=== PATIENT | female | born 1985 | race Caucasian/White ===

== ENCOUNTER → 2020-07-06 15:17 | Outpatient (BNVA) | payer MEDICAID, SELFPAY | PROVIDERS: Visit Provider Obstetrics & Gynecology | DX: Z30.09 Encounter for other general counseling and advice on contraception (principal) | CPT/HCPCS: 99212 ==

== ENCOUNTER → 2020-08-24 15:15 | Outpatient (BNVA) | payer MEDICAID, SELFPAY | PROVIDERS: Visit Provider Obstetrics & Gynecology | DX: Z30.430 Encounter for insertion of intrauterine contraceptive device (principal) | CPT/HCPCS: 11981 ==

== ENCOUNTER → 2020-11-11 08:40 | Outpatient (BNVA) | payer MEDICAID, SELFPAY | PROVIDERS: PCP Internal Medicine; Visit Provider Obstetrics & Gynecology | DX: Z30.432 Encounter for removal of intrauterine contraceptive device (principal) | CPT/HCPCS: 11982 ==

== ENCOUNTER 2020-12-03 09:11 | Outpatient (REF) | payer MEDICAID, SELFPAY ==
[2020-12-04 09:42] LABS: CT PCR NOT DETECTED (Not Detect.); NG PCR NOT DETECTED (Not Detect.)
[2020-12-10 11:02] LABS: HPV 16 RNA NOT DETECTED (NOT DETECTED); HPV mRNA E6/E7 rflx Detected (Not Detected)
== END 2020-12-03 09:12 | disposition home or self-care (01) ==
LOC: HO.LAB 09:11
PROVIDERS: PCP Internal Medicine; Visit Provider Obstetrics & Gynecology
DX: Z01.419 Encounter for gynecological examination (general) (routine) without abnormal findings (principal); N64.4 Mastodynia; N91.2 Amenorrhea, unspecified; N63.21 Unspecified lump in the left breast, upper outer quadrant
CPT/HCPCS: 87491; 87591; 87624; 87625; 88141; 88142

== ENCOUNTER 2020-12-07 09:25 | Outpatient (REF) | payer MEDICAID, SELFPAY ==
--- NOTE | ~2020-12-07 | MM_ITS ---
EXAMINATION: MM DIAGNOSTIC DIGITAL BREAST TOMOSYNTHESIS, BILATERAL US DIAGNOSTIC ULTRASOUND BREAST, LEFT CLINICAL INFORMATION: 35-year-old with recent left breast pain and small palpable area posterior upper outer quadrant. No prior breast imaging. Age 35. No known family history breast cancer. The lifetime risk of breast cancer based on the Tyrer-Cuzick Model is 9%. COMPARISON: None (current study represents initial baseline exam). TECHNIQUE: Digital breast tomosynthesis is performed in both the craniocaudal and mediolateral oblique views along with computer-aided detection (CAD). Synthesized 2D images are generated from the tomosynthesis. Ultrasound left breast is targeted to the upper outer quadrant. Patient is able to point to the area of concern at time of imaging. Grayscale imaging and color Doppler are performed without and with harmonics. FINDINGS: The breasts are heterogeneously dense, which may obscure small masses (ACR BI-RADS breast composition Category c). There are no significant masses, abnormal calcifications, or other abnormalities. The axilla and skin contours are unremarkable. There is no skin thickening or retraction. No coarsening of the Lawrence's ligaments. Ultrasound demonstrates no cystic or solid mass or architectural abnormality. No skin thickening. No focal duct ectasia or edema tracking in the soft tissue planes. Results are discussed with the patient at time of visit. MM/MM tomosynthesis diagnostic BI IMPRESSION: 1. No mammographic evidence of malignancy or inflammatory changes. 2. Unremarkable targeted left breast ultrasound. ASSESSMENT: BI-RADS 1: Negative RECOMMENDATION: 1. Patient should be managed based on the clinical impression. If clinically indicated, further evaluation may be considered with surgical consult. Decision to proceed with biopsy should be based on clinical grounds and degree of clinical concern. 2. Otherwise, routine annual screening mammography, beginning age 40, or earlier as clinical risk factors warrant. This patient's information was entered into a reminder system with a target due date for their next mammogram.
== END 2020-12-07 09:26 | disposition home or self-care (01) ==
LOC: HO.MAMMO 09:25
PROVIDERS: Visit Provider Obstetrics & Gynecology
DX: N63.21 Unspecified lump in the left breast, upper outer quadrant (principal)
CPT/HCPCS: 76642; 77062; 77066

== ENCOUNTER → 2020-12-23 11:32 | Outpatient (BNVA) | payer MEDICAID, SELFPAY | PROVIDERS: PCP Internal Medicine; Visit Provider Obstetrics & Gynecology | DX: N91.2 Amenorrhea, unspecified (principal); N63.20 Unspecified lump in the left breast, unspecified quadrant; R87.610 Atypical squamous cells of undetermined significance on cytologic smear of cervix (ASC-US); R87.810 Cervical high risk human papillomavirus (HPV) DNA test positive | CPT/HCPCS: 99202 ==

== ENCOUNTER 2020-12-24 13:09 | Outpatient (REF) | payer MEDICAID, SELFPAY ==
[2020-12-24 14:34] LABS: Thyroid Stimulating Hormone 7.12 uIU/mL (0.32-4.0)
[2020-12-25 05:16] LABS: Prolactin 10.9 ng/mL
== END 2020-12-24 13:10 | disposition home or self-care (01) ==
LOC: HO.LAB 13:09
PROVIDERS: PCP Internal Medicine; Visit Provider Obstetrics & Gynecology
DX: N91.2 Amenorrhea, unspecified (principal)
CPT/HCPCS: 36415; 84146; 84443

== ENCOUNTER 2020-12-25 10:58 | Outpatient (REF) | payer MEDICAID, SELFPAY ==
[2020-12-25 12:58] LABS: Free T4 (Free Thyroxine) 0.76 ng/dL (0.71-1.85)
== END 2020-12-25 10:59 | disposition home or self-care (01) ==
LOC: HO.LAB 10:58
PROVIDERS: PCP Internal Medicine; Visit Provider Obstetrics & Gynecology
DX: R79.89 Other specified abnormal findings of blood chemistry (principal)
CPT/HCPCS: 36415; 84439; 84481

== ENCOUNTER 2020-12-29 13:33 | Outpatient (REF) | payer MEDICAID, SELFPAY | END 2020-12-29 13:34 | disposition home or self-care (01) | LOC: HO.LAB 13:33 | PROVIDERS: PCP Internal Medicine; Visit Provider Obstetrics & Gynecology | DX: R87.610 Atypical squamous cells of undetermined significance on cytologic smear of cervix (ASC-US) (principal); R87.810 Cervical high risk human papillomavirus (HPV) DNA test positive | CPT/HCPCS: 57454; 81025; 88305 ==

== ENCOUNTER → 2021-01-12 11:27 | Outpatient (BNVA) | payer MEDICAID, SELFPAY | PROVIDERS: PCP Internal Medicine; Visit Provider Obstetrics & Gynecology ==

== ENCOUNTER 2021-05-20 08:59 | Outpatient (REF) | payer MEDICAID, SELFPAY ==
--- NOTE | ~2021-05-20 | US_ITS ---
EXAMINATION: US ABDOMEN LIMITED CLINICAL INFORMATION: Ventral hernia. COMPARISON: Ultrasound abdomen 06/29/2018. TECHNIQUE: Real-time imaging of the umbilical area. FINDINGS: There is hypoechoic soft tissue seen at and just above the the umbilicus in the area of scar. This measures 1.2 x 1.1 x 0.8 cm in sagittal, transverse and AP dimension. This has acoustic shadowing suggestive of postoperative scarring. Acoustic shadowing obscures the abdominal wall limiting evaluation for a hernia. There is bulge of the abdominal wall seen in this region. US/US abdomen limited IMPRESSION: Hypoechoic shadowing soft tissue probably representing postsurgical scarring. This limits evaluation for a hernia. Follow-up CT scan should be considered.
== END 2021-05-20 09:00 | disposition home or self-care (01) ==
LOC: HO.US 08:59
PROVIDERS: PCP Internal Medicine; Visit Provider Internal Medicine
DX: K43.9 Ventral hernia without obstruction or gangrene (principal)
CPT/HCPCS: 76705

== ENCOUNTER 2021-06-11 19:09 | Emergency (ER) | payer MEDICAID, SELFPAY ==
[2021-06-11 21:15] VITALS: BP 143/96; PULSE 92; RESP 16; TEMP 37.2; O2SAT 99; BMI 37.3
[2021-06-11 22:56] LABS: MANUAL DIFF FLAG NO
[2021-06-11 22:58] LABS: Basophils Percent Auto 0.4 % (0-2); Eosinophils Absolute Auto 0.3 X10*3/uL (0.0-0.4); Eosinophils Percent Auto 3.3 % (0-4); Hematocrit 34.3 % (37-47); Hemoglobin 10.7 g/dl (12.0-16.0); Imm Gran Abs Auto 0.04 X10*3/uL (0.00-0.03); Imm Gran Pct Auto 0.5 % (0.0-0.4); Lymphocytes Absolute Auto 2.4 X10*3/uL (1.2-4.9); Lymphocytes Percent Auto 30.7 % (20-40); Mean Corpuscular HGB Conc 31.2 g/dl (31.0-35.0); Mean Corpuscular Hemoglobin 25.1 pg (27.0-33.0); Mean Corpuscular Volume 80.3 fL (80-98); Mean Platelet Volume 11.1 fL (9.4-12.3); Monocytes Absolute Auto 0.5 X10*3/uL (0.1-1.2); Monocytes Percent Auto 6.3 % (2-11); Neutrophils Absolute Auto 4.6 X10*3/uL (2.0-8.3); Neutrophils Percent Auto 58.8 % (45-73); Platelet Count 234 X10*3/uL (160-400); Red Blood Count 4.27 X10*6/uL (4.20-5.50); Red Cell Distribution Width 14.6 % (11.0-16.0); White Blood Count 7.8 X10*3/uL (4.8-10.8)
[2021-06-11 23:15] LABS: Alanine Aminotransferase 38 U/L (0-31); Albumin Level 4.2 g/dL (3.5-5.0); Alkaline Phosphatase 89 U/L (39-117); Anion Gap 11 (12-20); Aspartate Amino Transferase 25 U/L (5-31); Bilirubin Total 0.2 mg/dL (0.0-1.0); Blood Urea Nitrogen 8 mg/dL (9-16); Carbon Dioxide 25 mmol/L (22-29); Chloride 105 mmol/L (96-108); Creatinine Clr Calc Pharmacy 107.9; Estimated Glomerular Filt Rate > 60; Glucose Random 97 mg/dL (60-115); Sodium 137 mmol/L (135-145)
--- NOTE | 2021-06-12 02:20 | ED_ITS ---
HPI - Abdominal Pain General Chief Complaint: Abdominal Pain Stated Complaint: abd pain Time Seen by Provider: 06/12/21 00:50 Source: patient Mode of arrival: ambulatory Limitations: no limitations History of Present Illness HPI narrative: Patient comes to the emergency room complaining discomfort in an umbilical hernia surgery she has had in the past. Patient states the pain has been constant for approximately 3 months. The discomfort started almost a year ago, but has been intermittent. Patient denies at this time abdominal pain, no fever, no chills, no vomiting or diarrhea. Related Data Home Medications Medication Instructions Recorded Confirmed etonogestrel 68 mg subdermal SUBDERMAL .3 YEARS ea 08/24/20 implant (Nexplanon) Previous Rx's Medication Instructions Recorded medroxyprogesterone 10 mg tablet 10 mg PO daily 5 Days #5 tab 12/03/20 (Provera) Allergies Allergy/AdvReac Type Severity Reaction Status Date / Time latex [LATEX] Allergy Intermediate HANDS SWELL Verified 06/11/21 21:15 latex Allergy Unknown hives Uncoded 11/11/20 09:20 Review of Systems Review of Systems Constitutional : No Weight loss, No Fever, No Chills, No Night Sweats, No Fatigue, No Malaise ENT/Mouth : No Hearing loss, No Ear Pain, No Nasal Congestion, No Sinus Pain, No Hoarseness, No sore throat, No Rhinorrhea, No Swallowing Difficulty Eyes: No Eye Pain, No Swelling, No Redness, No Foreign Body, No Discharge, No Vision Changes Cardiovascular : No Chest Pain, No SOB, No Dyspnea on Exertion, No Orthopnea, No Edema, No Palpitations Respiratory : No Cough, No Sputum, No Wheezing, No Smoke Exposure, No Dyspnea Gastrointestinal : No Nausea, No Vomiting, No Diarrhea, No Constipation, intermittent discomfort in umbilical/ventral hernia, no pain at this time. No Hematochezia, No Melena Genitourinary : no irregular bleeding, No Dysuria, No Urinary Frequency, No Hematuria, No Urinary Incontinence, No Urgency, No Flank Pain, No Urinary Flow Changes, No Hesitancy Musculoskeletal : No joint pain, No Myalgias, No Joint Swelling Skin : No Skin Lesions, No rash Neuro : No Weakness, No Numbness, No Paresthesias, No Loss of Consciousness, No Dizziness, No Headache Psych : No Anxiety/Panic, No Depression, No SI/HI/AH/VH, No Social Issues, Heme/Lymph: No Bruising, No Bleeding,No Lymphadenopathy Endocrine : No Polyuria, No Polydipsia, No Temperature Intolerance Physical Exam Vital Signs: Vital Signs: Last Vital Signs Temp 98.9 F 06/11/21 21:15 Pulse 92 06/11/21 21:15 Resp 16 06/11/21 21:15 BP 143/96 H 06/11/21 21:15 Pulse Ox 99 06/11/21 21:15 Body Mass Index 37.3 Const: Other: Appearance: Alert. Oriented X3. No acute distress. Eyes: Pupils equal, round and reactive to light. ENT: Pharynx normal. Neck: Normal inspection. Neck supple. No lymph nodes noted. No crepitus CVS: Normal heart rate and rhythm. Pulses normal. Normal S1 and S2 Respiratory: No respiratory distress. Breath sounds normal. No Wheezing. No rales Abdomen: Soft and nontender. Large reducible ventral hernia. No rigidity. No distention. good BS x4 Skin: Skin warm and dry. Normal skin color. Normal skin turgor. Extremities: No lower extremity edema. No Lacerations. No Rash Neuro: Oriented X 3. No motor deficit. No sensory deficit. Moving all extermities. No slurred speech. Course Course Course Narrative: I discussed the physical exam with the patient, patient has a reducible umbilical hernia/ventral hernia. At this time, patient is asymptomatic. Patient will follow-up with surgery. MDM - Abdominal Pain Lab Data Result diagrams: 06/11/21 22:41 06/11/21 22:41 Labs: Lab Results 06/11/21 06/11/21 Range/Units 22:41 22:41 WBC 7.8 (4.8-10.8) X10*3/uL RBC 4.27 (4.20-5.50) X10*6/uL Hgb 10.7 L (12.0-16.0) g/dl Hct 34.3 L (37-47) % MCV 80.3 (80-98) fL MCH 25.1 L (27.0-33.0) pg MCHC 31.2 (31.0-35.0) g/dl RDW 14.6 (11.0-16.0) % Plt Count 234 (160-400) X10*3/uL MPV 11.1 (9.4-12.3) fL Immature Gran % (Auto) 0.5 H (0.0-0.4) % Neut % (Auto) 58.8 (45-73) % Lymph % (Auto) 30.7 (20-40) % [place] % (Auto) 6.3 (2-11) % Eos % (Auto) 3.3 (0-4) % Baso % (Auto) 0.4 (0-2) % Lymph # (Auto) 2.4 (1.2-4.9) X10*3/uL [place] # (Auto) 0.5 (0.1-1.2) X10*3/uL Eos # (Auto) 0.3 (0.0-0.4) X10*3/uL Baso # (Auto) 0.0 (0.0-0.2) X10*3/uL Abs Immat Gran (auto) 0.04 H (0.00-0.03) X10*3/uL Absolute Neuts (auto) 4.6 (2.0-8.3) X10*3/uL Absolute Nucleated RBC 0.000 (0.0-0.012) X10*3/uL Nucleated RBC % (auto) 0.0 (0.0-0.2) /100WBC Sodium 137 (135-145) mmol/L Potassium 4.0 (3.3-5.1) mmol/L Chloride 105 (96-108) mmol/L Carbon Dioxide 25 (22-29) mmol/L Anion Gap 11 L (12-20) BUN 8 L (9-16) mg/dL Creatinine 0.69 (0.5-1.4) mg/dL Estim Creat Clear Calc 107.9 Estimated GFR > 60 Random Glucose 97 (60-115) mg/dL Calcium 9.0 (8.4-10.2) mg/dL Total Bilirubin 0.2 (0.0-1.0) mg/dL AST 25 (5-31) U/L ALT 38 H (0-31) U/L Alkaline Phosphatase 89 (39-117) U/L Total Protein 8.0 (6.5-8.0) g/dL Albumin 4.2 (3.5-5.0) g/dL Discharge Plan Discharge Clinical Impression: Reducible umbilical hernia Patient Disposition: Home, Self-Care Instructions: Ventral Hernia (ED) Additional Instructions: Please follow-up with your primary care physician tomorrow. If you have any wo rsening or new symptoms, please return to the emergency room or call 911 Prescriptions: No Action Nexplanon 68 mg implant subdermal .3 YEARS RF: 0 medroxyprogesterone [Provera] 10 mg tablet 10 mg PO daily 5 Days Qty: 5 RF: 0 Referrals: Rene Glez MD [Physician] - 2 days [facility] Past Medical History Medical History Asthma Depression GERD (gastroesophageal reflux disease) Surgical History History of umbilical hernia repair (05/13/19) Hx of section Family History Family History Father No problems noted. Mother HTN (hypertension) Asthma Hyperthyroidism Diabetes Paternal Aunt Breast cancer Social History Social History Alcohol intake: never Advance Directives: No Advance Directives Information Provided: No Sexual orientation: Straight/Heterosexual Gender identity: Female
== END 2021-06-12 03:01 | disposition home or self-care (01) ==
PROVIDERS: Emergency Provider Emergency Medicine; PCP Internal Medicine
DX: R10.33 Periumbilical pain (principal); R10.2 Pelvic and perineal pain; Z79.899 Other long term (current) drug therapy
CPT/HCPCS: 36415; 80053; 85025; 99283

== ENCOUNTER → 2021-06-15 20:04 | Outpatient (REF) | payer MEDICAID, SELFPAY | LOC: HO.SL 20:04 | PROVIDERS: Visit Provider Internal Medicine | DX: R06.83 Snoring (principal) | CPT/HCPCS: 95810 ==

== ENCOUNTER 2021-06-17 11:40 | Outpatient (REF) | payer MEDICAID, SELFPAY ==
[2021-06-17 14:50] LABS: Thyroid Stimulating Hormone 2.87 uIU/mL (0.32-4.0)
[2021-06-17 15:04] LABS: Erythrocyte Sedimentation Rate 29 MM/HR (0-20)
[2021-06-19 13:30] LABS: Transglutaminase IgA <1.0 U/mL
[2021-06-23 11:21] LABS: Endomysial IgA Antibody Negative (Negative)
[2021-06-25 22:57] LABS: Calprotectin, Fecal 365 mcg/g
== END 2021-06-17 11:41 | disposition home or self-care (01) ==
LOC: HO.LAB 11:40
PROVIDERS: PCP Internal Medicine; Referring Provider Internal Medicine; Visit Provider Physician Assistant
DX: K52.9 Noninfective gastroenteritis and colitis, unspecified (principal); K59.09 Other constipation
CPT/HCPCS: 36415; 83516; 83993; 84443; 85652; 86255; 86256; 87045; 87046; 87177; 87209; 87329; 99202

== ENCOUNTER 2021-07-19 12:13 | Outpatient (REF) | payer MEDICAID, SELFPAY ==
--- NOTE | ~2021-07-19 | CT_ITS ---
EXAMINATION: CT ABDOMEN AND PELVIS WITHOUT CONTRAST CLINICAL INFORMATION: Rule out ventral hernia. COMPARISON: Previous abdominal ultrasound May [address] of the abdomen and pelvis November 2020 TECHNIQUE: Multidetector volumetric imaging was performed from the superior aspect of the liver through the pubic symphysis. Sagittal and coronal reformatted images were obtained on the technologist's workstation. This CT examination was performed using dose optimization techniques as appropriate, variously including the following: *Automated exposure control *Adjustment of mA and/or kV according to patient size (this includes techniques or standardized protocols for targeted exams where dose is matched to indication/reason for exam; i.e. extremities or head) *Use of iterative reconstruction technique DLP: 565 mGy-cm FINDINGS: LUNG BASES: The visualized lung bases are unremarkable. LIVER, GALLBLADDER, AND BILIARY TREE: There is fatty infiltration of the liver. The gallbladder is unremarkable. There is no focal liver lesion or biliary duct dilatation. PANCREAS: Unremarkable. SPLEEN: Unremarkable. ADRENAL GLANDS: Unremarkable. KIDNEYS AND URETERS: The kidneys are normal in size, shape, and attenuation. No hydronephrosis, hydroureter, or calculi seen. No perinephric stranding. BLADDER: Unremarkable. GASTROINTESTINAL TRACT: The small and large bowel are unremarkable. The appendix is unremarkable. ABDOMINAL WALL: There is diastasis of the rectus muscles and significant midline bulge containing fat and loops of small and large bowel. No abdominal wall hernia is seen. LYMPH NODES: Normal. VASCULAR: Unremarkable. PELVIC VISCERA: Unremarkable. OSSEOUS STRUCTURES: Unremarkable. CT/CT abdomen pelvis wo con IMPRESSION: Severe diastasis of the rectus muscles and midline abdominal wall bulge. No hernia seen. Fatty liver.
[2021-07-19] MEDS: Barium Sulfate Oral (Vanilla) 450 ML ORAL.SUSP 900 ML PO (14:35)
== END 2021-07-19 12:14 | disposition home or self-care (01) ==
LOC: HO.CT 12:13
PROVIDERS: PCP Internal Medicine; Visit Provider Internal Medicine
DX: K43.9 Ventral hernia without obstruction or gangrene (principal)
CPT/HCPCS: 74176

== ENCOUNTER 2021-08-12 18:32 | Emergency (ER) | payer MEDICAID, SELFPAY ==
--- NOTE | ~2021-08-12 | XR_ITS ---
EXAMINATION: XR SHOULDER AND HAND, RIGHT CLINICAL INFORMATION: Pain and stiffness in the shoulder and hand COMPARISON: None TECHNIQUE: AP external rotation, Grashey, scapular Y, and axillary views of the right shoulder. 4 views of the right hand. FINDINGS: There is soft tissue swelling around the PIP joint of the second digit. No significant osseous abnormality is seen. No fractures or chondrocalcinosis. 3 views of the right shoulder show no fractures or dislocations. The glenohumeral joint appears normal as does the AC joint. No unusual calcifications are seen. XR/XR shoulder RT min 2V IMPRESSION: Normal right shoulder. Soft tissue swelling index finger.
--- NOTE | ~2021-08-12 | XR_ITS ---
EXAMINATION: XR CERVICAL SPINE CLINICAL INFORMATION: Neck pain. Stiffness. COMPARISON: None TECHNIQUE: 3 views of the cervical spine were obtained. FINDINGS: Slight reversal of the normal lordotic curve of the cervical spine. The vertebrae have normal height. No fracture. No bone destruction. Cervical disc heights are normal. Facet joints are normal. No prevertebral soft tissue swelling. XR/XR cervical spine 2V IMPRESSION: Normal cervical spine.
--- NOTE | ~2021-08-12 | XR_ITS ---
EXAMINATION: XR SHOULDER AND HAND, RIGHT CLINICAL INFORMATION: Pain and stiffness in the shoulder and hand COMPARISON: None TECHNIQUE: AP external rotation, Grashey, scapular Y, and axillary views of the right shoulder. 4 views of the right hand. FINDINGS: There is soft tissue swelling around the PIP joint of the second digit. No significant osseous abnormality is seen. No fractures or chondrocalcinosis. 3 views of the right shoulder show no fractures or dislocations. The glenohumeral joint appears normal as does the AC joint. No unusual calcifications are seen. XR/XR hand wrist RT IMPRESSION: Normal right shoulder. Soft tissue swelling index finger.
[2021-08-12 19:14] VITALS: BP 147/99; PULSE 94; RESP 18; TEMP 36.6; O2SAT 98; BMI 37.1
--- NOTE | 2021-08-12 19:58 | ED_ITS ---
HPI - Extremity Problem General Chief complaint: Extremity Injury, Upper Stated complaint: right shoulder and neck pain Source: patient Mode of arrival: ambulatory Limitations: no limitations History of Present Illness HPI Narrative: 36-year-old female presents with 1 day of right shoulder and right arm pain. Shoulder pain is radiating up to her neck. Patient does a lot of lifting, has a 1-year-old child. Does report any, falls or abuse. MD Complaint: extremity pain Onset (ago): day(s) (1) Pain Consistency: constant Location: right and upper extremity Severity scale (1-10): 7 Radiation: none Relieving factors: rest Exacerbating factors: range of motion Associated symptoms: denies other symptoms Related Data Home Medications Medication Instructions Recorded Confirmed etonogestrel 68 mg subdermal SUBDERMAL .3 YEARS ea 08/24/20 06/17/21 implant (Nexplanon) albuterol sulfate 90 mcg/actuation 0 mcg INHALATION 06/17/21 06/17/21 aerosol inhaler (ProAir HFA) escitalopram oxalate 10 mg tablet 10 mg PO DAILY 06/17/21 06/17/21 fluoxetine 20 mg capsule mg PO 06/17/21 06/17/21 ibuprofen 800 mg tablet 800 mg PO Q8H 06/17/21 06/17/21 levothyroxine 100 mcg tablet 100 mcg PO DAILY 06/17/21 06/17/21 loperamide 2 mg tablet 0 mg PO 06/17/21 06/17/21 (Anti-Diarrheal (loperamide)) loratadine 10 mg tablet 10 mg PO DAILY 06/17/21 06/17/21 montelukast 10 mg tablet 10 mg PO DAILY 06/17/21 06/17/21 trazodone 100 mg tablet 100 mg PO BEDTIME 06/17/21 06/17/21 Previous Rx's Medication Instructions Recorded medroxyprogesterone 10 mg tablet 10 mg PO daily 5 Days #5 tab 12/03/20 (Provera) bisacodyl 5 mg tablet,delayed 10 mg PO ONCE 1 Days #2 tab 06/17/21 release (Dulcolax (bisacodyl)) polyethylene glycol 3350 17 238 g PO ONCE 1 Days #238 g 06/17/21 gram/dose oral powder (Miralax) cyclobenzaprine 10 mg tablet 10 mg PO TID PRN #14 tab 08/12/21 Allergies Allergy/AdvReac Type Severity Reaction Status Date / Time latex [LATEX] Allergy Intermediate HANDS SWELL Verified 08/12/21 19:13 latex Allergy Unknown hives Uncoded 06/17/21 11:50 Review of Systems Review of Systems: Constitutional: No Fever, No Chills ENT/Mouth: No Ear Pain, No Hoarseness, No sore throat Eyes: No Eye Pain, No Swelling, No Redness, No Foreign Body Cardiovascular: No Chest Pain, No SOB Respiratory: No Cough, No Dyspnea Gastrointestinal: No Nausea, No Vomiting, No Diarrhea, No abdominal Pain Genitourinary: No Dysuria, No Hematuria Musculoskeletal: positive right neck shoulder and arm pain, No Myalgias, No Joint Swelling Skin: No Skin lacerations, No rash Neuro: No Weakness, No Numbness, No Paresthesias, No Loss of Consciousness, No Dizziness, No Headache Psych: No Anxiety/Panic, No Depression Heme/Lymph: no easy bruising, no Lymphadenopathy Endocrine: No Polyuria, No Polydipsia Yes all other systems are reviewed and are negative FORMERLY [facility], [facility] Past Medical History Attestation statement: The following information was validated with the patient. Source: old records reviewed Medical History Asthma Depression GERD (gastroesophageal reflux disease) Surgical History History of umbilical hernia repair (05/13/19) Hx of section Family History Family History Father No problems noted. Mother HTN (hypertension) Asthma Hyperthyroidism Diabetes Paternal Aunt Breast cancer Social History Social History Alcohol intake: never Advance Directives: No Advance Directives Information Provided: Yes Patient : No Sexual orientation: Straight/Heterosexual Gender identity: Female Physical Exam Vital Signs: Vital Signs: Last Vital Signs Temp 97.9 F 08/12/21 19:14 Pulse 94 08/12/21 19:14 Resp 18 08/12/21 19:14 BP 147/99 H 08/12/21 19:14 Pulse Ox 98 08/12/21 19:14 BMI result Body Mass Index 37.1 Appearance: Alert. Oriented X3. No acute distress. Eyes: Pupils equal, round and reactive to light. ENT: Pharynx normal. Neck: Normal inspection. Neck supple. Muscle spasms noted at right-sided trapezius. CVS: Normal heart rate and rhythm. Pulses normal. Respiratory: No respiratory distress. Breath sounds normal. Abdomen: Soft and nontender. Skin: Skin warm and dry. Normal skin color. Normal skin turgor. Extremities: Pain on abduction to the right shoulder, strength 5/5. Brisk capillary refill and equal pulses to the upper extremities. No acromion process tenderness noted. Neuro: No motor deficit. No sensory deficit. Cranial nerves 2-12 intact. Course Course Course Narrative: 36-year-old female presents with right shoulder strain radiating up to her neck and down her right arm for approximately 24 hours. Does her child repetitively. Does not report any trauma or injury. No other injuries suspicious for abuse. Able to pronate and supinate the wrist, decreased abduction secondary to shoulder spasm and pain, no pain on adduction. Will order x-rays. X-rays negative for acute findings. Plan of care is to treat with cyclobenzaprine muscle relaxer. Discussion with patient regarding possible need to follow up with primary care physician and her physical therapy for muscle spasms. Patient verbalized understanding of and agrees to plan of care. interpreter for the deaf utilized for all correspondence. Google translate utilized for discharge instructions. MDM - Extremity (Nontraumatic) MDM Narrative Medical decision making narrative: Muscular strain Medical Records Attestation: I reviewed the patient's medical records. Imaging Data Cervical spine, shoulder and wrist x-ray: Attestation: I personally reviewed and interpreted this imaging study as follows: Radiologist's impression: EXAMINATION: XR CERVICAL SPINE CLINICAL INFORMATION: Neck pain. Stiffness. COMPARISON: None TECHNIQUE: 3 views of the cervical spine were obtained. FINDINGS: Slight reversal of the normal lordotic curve of the cervical spine. The vertebrae have normal height. No fracture. No bone destruction. Cervical disc heights are normal. Facet joints are normal. No prevertebral soft tissue swelling. XR/XR cervical spine 2V IMPRESSION: Normal cervical spine. EXAMINATION: XR SHOULDER AND HAND, RIGHT CLINICAL INFORMATION: Pain and stiffness in the shoulder and hand? COMPARISON: None? TECHNIQUE: AP external rotation, Grashey, scapular Y, and axillary views of the right shoulder. 4 views of the right hand. FINDINGS: There is soft tissue swelling around the PIP joint of the second digit. No significant osseous abnormality is seen. No fractures or chondrocalcinosis. 3 views of the right shoulder show no fractures or dislocations. The glenohumeral joint appears normal as does the AC joint. No unusual calcifications are seen.? XR/XR hand wrist RT IMPRESSION: Normal right shoulder. Soft tissue swelling index finger.? Discharge Plan Discharge Clinical Impression: Muscle strain of left shoulder Patient Disposition: Home, Self-Care Instructions: Muscle Strain (ED) Additional Instructions: Se le evalu? por dolor en el hombro sam que se irradiaba hacia mcguire brazo sam. Las radiograf?as de la columna cervical son normales. Las radiograf?as del hombro y la mano son normales. Lo m?s probable es que se trate de sundar distensi?n muscular esquel?piper. Utilice ciclobenzaprina brandy se indica. Kilo medicamento es un relajante muscular y puede retrasar el tiempo de reacci?n, aumentar el riesgo de ca?jaramillo y causar somnolencia. No conduzca ni maneje maquinaria mientras est? tomando kilo medicamento. Olivia un seguimiento con el proveedor de atenci?n primaria. Prabhu por elegir kilo departamento de emergencias para mcguire evaluaci?n. Olivia un seguimiento con mcguire m?dico de atenci?n primaria seg?n sea necesario. Regrese al departamento de emergencias por cualquier s?ntoma nuevo, preocupante o que empeore. You were evaluated for left shoulder pain radiating down to her left arm. X- rays of your cervical spine are normal. X-rays to the shoulder and hand are normal. This is most likely a muscular skeletal strain. Please use cyclobenzaprine as directed. This medication is a muscle relaxer and can delay reaction time, increased risk for falls, and cause drowsiness. Do not drive or operate machinery while taking this medication. Please follow-up with primary care provider. Thank you for choosing this emergency department for evaluation. Please follow-up with primary care physician as needed. Return to the emergency department for any new, concerning, or worsening symptoms. Prescriptions: New cyclobenzaprine 10 mg tablet 10 mg PO TID PRN (Reason: muscle spasm) Qty: 14 RF: 0 No Action fluoxetine 20 mg capsule PO RF: 0 levothyroxine 100 mcg tablet 100 mcg PO DAILY RF: 0 escitalopram oxalate 10 mg tablet 10 mg PO DAILY RF: 0 trazodone 100 mg tablet 100 mg PO BEDTIME RF: 0 albuterol sulfate [ProAir HFA] 90 mcg/actuation HFA aerosol inhaler 0 mcg inhalation RF: 0 loperamide [Anti-Diarrheal (loperamide)] 2 mg tablet 0 mg PO RF: 0 loratadine 10 mg tablet 10 mg PO DAILY RF: 0 montelukast 10 mg tablet 10 mg PO DAILY RF: 0 ibuprofen 800 mg tablet 800 mg PO Q8H RF: 0 bisacodyl [Dulcolax (bisacodyl)] 5 mg tablet,delayed release (DR/EC) 10 mg PO ONCE 1 Days Qty: 2 RF: 0 polyethylene glycol 3350 [Miralax] 17 gram/dose powder 238 g PO ONCE 1 Days Qty: 238 RF: 0 Nexplanon 68 mg implant subdermal .3 YEARS RF: 0 medroxyprogesterone [Provera] 10 mg tablet 10 mg PO daily 5 Days Qty: 5 RF: 0 Interventions: ED Discharge Assessment Last Done: 08/12/21 23:31 Discharge Date/Time: 08/12/21 23:33
[2021-08-12] MEDS: Cyclobenzaprine HCl 10 MG TABLET PO (23:20)
== END 2021-08-12 23:33 | disposition home or self-care (01) ==
PROVIDERS: Emergency Provider Internal Medicine; PCP Internal Medicine
DX: S46.912A Strain of unspecified muscle, fascia and tendon at shoulder and upper arm level, left arm, initial encounter (principal); X50.0XXA Overexertion from strenuous movement or load, initial encounter; Y93.89 Activity, other specified; Y92.9 Unspecified place or not applicable; Y99.9 Unspecified external cause status
CPT/HCPCS: 72040; 73030; 73110; 73130; 99283; 99284

== ENCOUNTER → 2021-08-18 15:46 | Outpatient (BNVA) | payer MEDICAID, SELFPAY | PROVIDERS: PCP Internal Medicine; Referring Provider Internal Medicine; Visit Provider Surgery | DX: M62.08 Separation of muscle (nontraumatic), other site (principal) | CPT/HCPCS: 99212 ==

== ENCOUNTER 2021-09-01 11:46 | Day surgery (SDC) | payer MEDICAID, SELFPAY ==
[2021-09-01 12:38] VITALS: BMI 37.1
--- NOTE | 2021-09-01 12:44 | P.HPSUR_ITS ---
Pre-Procedural Eval Section A Date of Service: 09/01/21 Section B Chief Complaint: Noninfective gastroenteritis and Colitis unspec. Relevant Family History (Specify if Yes): No Relevant Social History: None Present Medications: see Short Stay Collaborative assessment Medical History: Significant History (Asthma Depression GERD (gastroesophageal reflux disease)) History of Previous Operations: Relevant previous surgery/procedure and date(s) (, umbilical hernia repair) Allergies: Allergies Allergy/AdvReac Type Severity Reaction Status Date / Time latex [LATEX] Allergy Intermediate HANDS SWELL Verified 09/01/21 12:31 latex Allergy Unknown hives Uncoded 06/17/21 11:50 Review of Systems Sugical H&P ROS: Negative: Constitution, Cardiovascular, Respiratory, Neurological, Psychiatric, Hem-Onc, Allergic/Immunologic, Gastrointestinal, Genitourinary, Musculoskeletal, Integumentary, Endocrine and Eyes/Ears/Nose/Throat Exam Surgical H&P Exam: Normal: HEENT, Normal: Heart, Normal: Lungs, Normal: Extre mities, Normal: Abdomen, Normal: Skin and Normal: Neurological Plan Diagnosis/Plan: Unchanged I have reviewed the history and physical and performed a pertinent physical examination on my patient. No changes have occurred unless specified.
[2021-09-01 12:46] LABS: UPreg QC Valid YES; Urine Pregnancy NEGATIVE (NEGATIVE)
[2021-09-01 12:47] VITALS: BP 131/85; PULSE 76; RESP 16; TEMP 36.6; O2SAT 97
--- NOTE | 2021-09-01 13:56 | HO.ANESPROP2 ---
[facility] / [facility] Active Problems Active Problems: All Active Problems (Updated 09/01/21 @ 12:36 by Madeline Gonzalez, MIQUEL) Family planning (Acute) Well woman exam (Acute) Amenorrhea (Acute) Left breast lump (Acute) ASCUS with positive high risk HPV (Acute) Abnormal thyroid blood test (Acute) Mastodynia of left breast (Acute) Chronic diarrhea (Acute) Diastasis recti (Acute) Past Medical History Medical History (Updated 09/01/21 @ 12:36 by Madeline Gonzalez RN) Anemia Asthma Depression Diastasis recti GERD (gastroesophageal reflux disease) History of hypothyroidism HTN (hypertension) Hx of sleep apnea Family History Family History Father No problems noted. Mother HTN (hypertension) Asthma Hyperthyroidism Diabetes Paternal Aunt Breast cancer Family history of problems with anesthesia: No Surgical History Surgical History History of umbilical hernia repair (05/13/19) Hx of section History of Problems with Anesthesia: No Social History Social History Alcohol intake: never Patient Tobacco Use Status: Never used Tobacco Use of substances other than those prescribed or required for medical reasons: No Are you DNR?: No Advance Directives: No Advance Directives Information Provided: Yes Sexual orientation: Straight/Heterosexual Gender identity: Female Meds Allergies Allergy/AdvReac Type Severity Reaction Status Date / Time latex [LATEX] Allergy Intermediate HANDS SWELL Verified 09/01/21 12:31 latex Allergy Unknown hives Uncoded 06/17/21 11:50 Home Medications Medication Instructions Recorded Confirmed Last Taken Type albuterol sulfate 90 mcg/actuation 0 mcg INHALATION 06/17/21 08/18/21 Unknown History aerosol inhaler (ProAir HFA) escitalopram oxalate 10 mg tablet 10 mg PO DAILY 06/17/21 08/18/21 Unknown History fluoxetine 20 mg capsule mg PO 06/17/21 08/18/21 Unknown History ibuprofen 800 mg tablet 800 mg PO Q8H 06/17/21 08/18/21 Unknown History levothyroxine 100 mcg tablet 100 mcg PO DAILY 06/17/21 08/18/21 Unknown History loperamide 2 mg tablet 0 mg PO 06/17/21 08/18/21 Unknown History (Anti-Diarrheal (loperamide)) loratadine 10 mg tablet 10 mg PO DAILY 06/17/21 08/18/21 Unknown History montelukast 10 mg tablet 10 mg PO DAILY 06/17/21 08/18/21 Unknown History trazodone 100 mg tablet 100 mg PO BEDTIME 06/17/21 08/18/21 Unknown History hydrochlorothiazide 12.5 mg tablet 1 tab PO DAILY 09/01/21 09/01/21 Unknown History Exam Exam Date and Time: September 01, 2021 1356 Height,Weight and Vital Signs: Height 4 ft 11 in Weight 83.461 kg Last Vital Signs Temp 98 F 09/01/21 12:47 Pulse 76 09/01/21 12:47 Resp 16 09/01/21 12:47 BP 131/85 09/01/21 12:47 Pulse Ox 97 09/01/21 12:47 Pertinent Lab Results Pertinent Lab Results: Laboratory Tests 09/01/21 12:30 Urine Test NEGATIVE Airway Mallampati Class: III TM Dist: >3cm Neck ROM: Full Assessment and Plan Assessment Anesthesia Assessment: Anesthesia Plan Discussed and Chart Reviewed Final Anesthetic Review Family History of Problems with Anesthesia: No History of Problems with Anesthesia: No NPO: Yes ASA Class: III Final Preanesthetic Review: No Changes in Pt Med Stat, Meds/Allgs Chart Reviewed, Consent Obtained/Reviewed and Anes Risks/Benef Reviewed Patient Risk: Intermediate Procedure Risk: Low Anesthetic Plan Anesthetic Plan: MAC: Disposition: Standard PACU
--- NOTE | 2021-09-01 14:36 | P.OP_ITS ---
Operative Note Operative Note Date of Service: 09/01/21 Narrative: Operative Information Procedure Description: Colonoscopy COLONOSCOPY Instrument: Olympus variable stiffness pediatric scope 190L Colonoscopy Monitoring: Vital signs and clinical assessment, continuous EKG monitoring, Pulse oximetry, Carbon Dioxide monitoring and blood pressure monitoring were done throughout the procedure. Colon withdrawal time was 22 minutes. Procedure: The patient was placed in the left lateral decubitis position and pre-procedure medications were administered. After a digital rectal examination of the ano-rectum, the video colonoscope was inserted into the rectum and advanced through the colon to the cecum/TI. The colonoscope was slowly withdrawn in a retrograde panoramic fashion and the colon mucosa was carefully examined including a retroflexed view of the rectum. Findings and interventions are described below. Procedure Difficulty: easy Findings: Terminal Ileum-normal, bx taken random bx taken from right, left and rectum in separate jars Cecum:normal Ascending Colon: normal Transverse Colon -normal Descending Colon:normal Sigmoid Colon: x2 sessile polyps 10-12 mm removed with cold snare, one area was clipped for hemostasis Rectum: Retroflexion with small internal hemorrhoids, grade I Anorectum - normal Colon preparation: [place] Bowel Preparation Scale Right colon; 2 Transverse colon: 1 Left colon; 2 (0 = Unprepared colon segment with mucosa not seen due to solid stool that cannot be cleared. 1 = Portion of mucosa of the colon segment seen, but other areas of the colon segment not well seen due to staining, residual stool and/or opaque liquid. 2 = Minor amount of residual staining, small fragments of stool and/or opaque liquid, but mucosa of colon segment seen well. 3 = Entire mucosa of colon segment seen well with no residual staining, small fragments of stool or opaque liquid) Impression and Post Procedure Diagnosis: polyps internal hemorrhoids Plan: High fiber diet leaflet Avoid straining at stool, epsom salts and sitz bath, anusol supps or cream Repeat Colonoscopy in 3-5 years or earlier if clinically indicated if bx neg then do EGD for duodenal bx and r/o enteropathy Above findings were reviewed with the patient and relevant handouts were provided if indicated.
--- NOTE | 2021-09-01 14:36 | P.BOP_ITS ---
Brief Operative Note Date of Service: 09/01/21 Pre-op diagnosis: diarrhea Post-op diagnosis: same Procedure: see op note Surgeon: Jordan Alvarez MD Anesthesia: MAC Was an Warehouse Logistics Manager used for this Procedure?: No Estimated blood loss (mL): 0 Condition: stable Disposition: PACU
[2021-09-01 14:46] VITALS: BP 121/87; PULSE 81; RESP 16; TEMP 36.4; O2SAT 98
[2021-09-01 15:01] VITALS: BP 138/98; PULSE 78; RESP 16; TEMP 36.4; O2SAT 98
== END 2021-09-01 15:23 | disposition home or self-care (01) ==
PROVIDERS: Anesthesiology; PCP Internal Medicine; Visit Provider Internal Medicine Gastroenterology
PROC: 0DJD8ZZ Inspection of Lower Intestinal Tract, Via Natural or Artificial Opening Endoscopic (ICD-10-PCS; CPT 45378; principal; 2021-09-01 13:20)
DX: K52.9 Noninfective gastroenteritis and colitis, unspecified (principal); R10.30 Lower abdominal pain, unspecified; D12.5 Benign neoplasm of sigmoid colon; K64.0 First degree hemorrhoids; K21.9 Gastro-esophageal reflux disease without esophagitis; J45.909 Unspecified asthma, uncomplicated; F32.9 Major depressive disorder, single episode, unspecified; Z79.899 Other long term (current) drug therapy; Z91.040 Latex allergy status
CPT/HCPCS: 45385; 45380; 81025; 88305

== ENCOUNTER → 2021-12-05 20:56 | Outpatient (REF) | payer MEDICAID, SELFPAY | LOC: HO.SL 20:56 | PROVIDERS: PCP Internal Medicine; Visit Provider Internal Medicine | DX: G47.33 Obstructive sleep apnea (adult) (pediatric) (principal) | CPT/HCPCS: 95811 ==

== ENCOUNTER 2021-12-06 04:13 | Emergency (ER) | payer MEDICAID, SELFPAY ==
--- NOTE | ~2021-12-06 | US_ITS ---
EXAMINATION: US OBSTETRICAL ULTRASOUND CLINICAL INFORMATION: Vaginal bleeding COMPARISON: None. LMP: Unknown. TECHNIQUE: Transabdominal and endovaginal sonographic evaluation of the pelvis. FINDINGS: Anteverted uterus. There is a fibroid along the anterior uterine body measuring 2.5 cm. Thickened endometrium measuring 1.8 cm. There is a subtle hypoechoic area near the fundal region which could represent a small early gestational sac. This is somewhat ill-defined. No yolk sac or pole. MATERNAL ADNEXA: The right maternal ovary measures 2.8 x 2.3 x 2 cm. No focal abnormality. The left maternal ovary measures 4.2 x 2.3 x 2.7 cm. Dominant follicle measures 1.5 cm. There is no significant maternal adnexal mass. No maternal pelvic ascites. US/US OB pelvic and transvaginal IMPRESSION: 1. No definite intrauterine . Thickened endometrium with ill-defined hypoechoic area may represent an early gestational sac. No yolk sac or pole. Continued follow-up recommended. 2. No evidence of ectopic .
[2021-12-06 04:25] VITALS: BP 149/77; PULSE 107; RESP 18; TEMP 36; O2SAT 96; BMI 32.3
--- NOTE | 2021-12-06 04:37 | PC.NURSE ---
Assumed care of pt Pt nepalese-speaking Spoke with pt with staff medical data entry clerk Per pt, was at sleep study [facility] and when she went home at 0300 she took a shower and peed. When she wiped herself, she noticed blood on tissue paper. Denies any clotts. Pt had positive test on , 12/02. Pt has an appointment with PROCESS TRAINER on Monday. Denies any CP/SOB/Lightheadedness/Dizziness. Denies any dysuria C/o cramping/soreness over pelvis AxO x 4, clear and complete sentences
[2021-12-06 04:53] LABS: Appearance Urine CLOUDY; Color Urine YELLOW; Glucose Urine UA NEG (NEG); Leukocyte Esterase Urine NEG (NEG); Nitrite Urine NEG (NEG); Specific Gravity - Urine >= 1.030 (1.005-1.025); UACC Culture Trigger NO; Urine Blood 2+ (NEG); Urine Ketones NEG (NEG); Urine Protein TRACE MG/DL (NEG-TRACE)
[2021-12-06 04:54] LABS: Urine Pregnancy POSITIVE (NEGATIVE)
[2021-12-06 04:55] LABS: UPreg QC Valid YES
[2021-12-06 04:59] LABS: Bacteria Urine 2+ /LPF; Mucus Urine 3+ /LPF; RBC Urine 0-2 /HPF (0); Squamous Epithelial Cell Urine 3+ /LPF; UACC CULT YES
[2021-12-06 05:12] VITALS: BP 108/51; PULSE 95; RESP 16; TEMP 37; O2SAT 97
[2021-12-06] MEDS: Acetaminophen 325 MG TABLET 975 MG PO (05:44)
[2021-12-06] MEDS: 0.9 % Sodium Chloride 1,000 ML 999 ML IV (05:44)
[2021-12-06 05:48] LABS: Basophils Percent Auto 0.2 % (0-2); Eosinophils Absolute Auto 0.2 X10*3/uL (0.0-0.4); Eosinophils Percent Auto 2.5 % (0-4); Hematocrit 31.2 % (37.0-47.0); Hemoglobin 9.5 g/dl (12.0-16.0); Imm Gran Abs Auto 0.05 X10*3/uL (0.00-0.03); Imm Gran Pct Auto 0.5 % (0.0-0.4); Lymphocytes Absolute Auto 1.8 X10*3/uL (1.2-4.9); Lymphocytes Percent Auto 18.4 % (20-40); MANUAL DIFF FLAG NO; Mean Corpuscular HGB Conc 30.4 g/dl (31.0-35.0); Mean Corpuscular Hemoglobin 23.6 pg (27.0-33.0); Mean Corpuscular Volume 77.6 fL (80.0-98.0); Monocytes Absolute Auto 0.7 X10*3/uL (0.1-1.2); Neutrophils Absolute Auto 6.9 x10*3/uL (2.0-8.3); Neutrophils Percent Auto 71.4 % (45-73); Platelet Count 273 X10*3/uL (160-400); Red Blood Count 4.02 X10*6/uL (4.20-5.50); Red Cell Distribution Width 16.6 % (11.0-16.0); White Blood Count 9.6 X10*3/uL (4.8-10.8)
--- NOTE | 2021-12-06 05:56 | ED_ITS ---
HPI - General Chief complaint: OB Stated complaint: ; bleeding, stomach pain Time Seen by Provider: 12/06/21 05:07 Source: patient and spanish interpreter Mode of arrival: ambulatory History of Present Illness HPI Narrative: 36-year-old female and unknown LMP who presents with knowing that she is and states that in the middle the night she got up with lower abdominal/pelvic discomfort with cramping similar to her menstrual. After taking a warm shower and urinating noted that there was pinkish discoloration. She otherwise denies any fever, chills, new cough, nausea, vomiting, diarrhea. Patient states that she is A positive Related Data Home Medications Medication Instructions Recorded Confirmed albuterol sulfate 90 mcg/actuation 0 mcg INHALATION 06/17/21 08/18/21 aerosol inhaler (ProAir HFA) escitalopram oxalate 10 mg tablet 10 mg PO DAILY 06/17/21 08/18/21 fluoxetine 20 mg capsule mg PO 06/17/21 08/18/21 ibuprofen 800 mg tablet 800 mg PO Q8H 06/17/21 08/18/21 levothyroxine 100 mcg tablet 100 mcg PO DAILY 06/17/21 08/18/21 loperamide 2 mg tablet 0 mg PO 06/17/21 08/18/21 (Anti-Diarrheal (loperamide)) loratadine 10 mg tablet 10 mg PO DAILY 06/17/21 08/18/21 montelukast 10 mg tablet 10 mg PO DAILY 06/17/21 08/18/21 trazodone 100 mg tablet 100 mg PO BEDTIME 06/17/21 08/18/21 hydrochlorothiazide 12.5 mg tablet 1 tab PO DAILY 09/01/21 09/01/21 Previous Rx's Medication Instructions Recorded bisacodyl 5 mg tablet,delayed 10 mg PO ONCE 1 Days #2 tab 06/17/21 release (Dulcolax (bisacodyl)) polyethylene glycol 3350 17 238 g PO ONCE 1 Days #238 g 06/17/21 gram/dose oral powder (Miralax) cyclobenzaprine 10 mg tablet 10 mg PO TID PRN #14 tab 08/12/21 Allergies Allergy/AdvReac Type Severity Reaction Status Date / Time latex [LATEX] Allergy Intermediate HANDS SWELL Verified 12/06/21 04:29 latex Allergy Unknown hives Uncoded 12/06/21 04:29 Review of Systems Review of Systems: Pertinent positives and negatives as stated in HPI 10 point review systems is otherwise negative. [facility] Past Medical History Source: nursing notes reviewed Medical History Anemia Asthma Depression Diastasis recti GERD (gastroesophageal reflux disease) History of hypothyroidism HTN (hypertension) Hx of sleep apnea Surgical History History of umbilical hernia repair (05/13/19) Hx of section Family History Family History Father No problems noted. Mother HTN (hypertension) Asthma Hyperthyroidism Diabetes Paternal Aunt Breast cancer Social History Social History Alcohol intake: never Patient Tobacco Use Status: Never used Tobacco Advance Directives: No Patient : Yes Sexual orientation: Straight/Heterosexual Gender identity: Female Physical Exam Vital Signs: Vital Signs: Last Vital Signs Temp 98.6 F 12/06/21 05:12 Pulse 95 12/06/21 05:12 Resp 16 12/06/21 05:12 BP 108/51 L 12/06/21 05:12 Pulse Ox 97 12/06/21 05:12 BMI result Body Mass Index 32.3 VITAL SIGNS: Reviewed. GENERAL: Well developed, well nourished, in no acute distress. HEAD: Normocephalic/atraumatic EYES: PERRLA, EOMI EARS: Ext canals without abnormality OROPHARYNX: no oral lesions noted, posterior pharynx clear LUNGS: Normal breath sounds. No adventitious sounds or accessory muscle use. SpO2<97> CARDIOVASCULAR: Regular rate and rhythm without noted murmurs ABDOMEN: Soft, mild tenderness at the suprapubic without rebound, non-distended with bowel sounds. MUSCULOSKELETAL: No tenderness, deformities, or effusions noted on gross inspection. EXTREMITIES: No cyanosis, clubbing or edema. SKIN: Inspection of the skin reveals no rashes NEUROLOGIC: Alert and oriented x 4. Strength and sensation to light touch were grossly intact x 4. Course Course Course Narrative: 36-year-old female with history and clinical presentation suggestive of possible SAB, will obtain basic labs and order an ultrasound. Review of all investigations demonstrates an ECG of 724, patient is a positive and Ob ultrasound was ordered for further evaluation of the vaginal bleeding. Patient was informed of all results and the plan. Signed out to Dr Wynn. MDM - OB/Uterine Contractions Lab Data Result diagrams: 12/06/21 05:39 12/06/21 05:39 Labs: Lab Results 12/06/21 12/06/21 12/06/21 Range/Units 04:45 04:45 05:39 WBC 9.6 (4.8-10.8) X10*3/uL RBC 4.02 L (4.20-5.50) X10*6/uL Hgb 9.5 L (12.0-16.0) g/dl Hct 31.2 L (37.0-47.0) % MCV 77.6 L (80.0-98.0) fL MCH 23.6 L (27.0-33.0) pg MCHC 30.4 L (31.0-35.0) g/dl RDW 16.6 H (11.0-16.0) % Plt Count 273 (160-400) X10*3/uL MPV 10.0 (9.4-12.3) fL Immature Gran % (Auto) 0.5 H (0.0-0.4) % Neut % (Auto) 71.4 (45-73) % Lymph % (Auto) 18.4 L (20-40) % [place] % (Auto) 7.0 (2-11) % Eos % (Auto) 2.5 (0-4) % Baso % (Auto) 0.2 (0-2) % Lymph # (Auto) 1.8 (1.2-4.9) X10*3/uL [place] # (Auto) 0.7 (0.1-1.2) X10*3/uL Eos # (Auto) 0.2 (0.0-0.4) X10*3/uL Baso # (Auto) 0.0 (0.0-0.2) X10*3/uL Abs Immat Gran (auto) 0.05 H (0.00-0.03) X10*3/uL Absolute Neuts (auto) 6.9 (2.0-8.3) x10*3/uL Absolute Nucleated RBC 0.000 (0.0-0.012) X10*3/uL Nucleated RBC % (auto) 0.0 (0.0-0.2) /100WBC Sodium (135-145) mmol/L Potassium (3.3-5.1) mmol/L Chloride (96-108) mmol/L Carbon Dioxide (22-29) mmol/L Anion Gap (12-20) BUN (9-16) mg/dL Creatinine (0.5-1.4) mg/dL Estim Creat Clear Calc Estimated GFR Random Glucose (60-115) mg/dL Calcium (8.4-10.2) mg/dL Total Bilirubin (0.0-1.0) mg/dL AST (5-31) U/L ALT (0-31) U/L Alkaline Phosphatase (39-117) U/L Total Protein (6.5-8.0) g/dL Albumin (3.5-5.0) g/dL Beta HCG, Quant mIU/mL Urine Color YELLOW Urine Appearance CLOUDY Urine pH 6.0 (5.0-8.0) Ur Specific Reese >= 1.030 H (1.005-1.025) Urine Protein TRACE (NEG-TRACE) MG/DL Urine Glucose (UA) NEG (NEG) MG/DL Urine Ketones NEG (NEG) MG/DL Urine Blood 2+ H (NEG) Urine Nitrite NEG (NEG) Ur Leukocyte Esterase NEG (NEG) Urine RBC 0-2 (0) /HPF Urine WBC 5-9 H (0-4) /HPF Ur Squamous Epith Cells 3+ /LPF Urine Bacteria 2+ /LPF Urine Mucus 3+ /LPF Urine Test POSITIVE H (NEGATIVE) 12/06/21 Range/Units 05:39 WBC (4.8-10.8) X10*3/uL RBC (4.20-5.50) X10*6/uL Hgb (12.0-16.0) g/dl Hct (37.0-47.0) % MCV (80.0-98.0) fL MCH (27.0-33.0) pg MCHC (31.0-35.0) g/dl RDW (11.0-16.0) % Plt Count (160-400) X10*3/uL MPV (9.4-12.3) fL Immature Gran % (Auto) (0.0-0.4) % Neut % (Auto) (45-73) % Lymph % (Auto) (20-40) % [place] % (Auto) (2-11) % Eos % (Auto) (0-4) % Baso % (Auto) (0-2) % Lymph # (Auto) (1.2-4.9) X10*3/uL [place] # (Auto) (0.1-1.2) X10*3/uL Eos # (Auto) (0.0-0.4) X10*3/uL Baso # (Auto) (0.0-0.2) X10*3/uL Abs Immat Gran (auto) (0.00-0.03) X10*3/uL Absolute Neuts (auto) (2.0-8.3) x10*3/uL Absolute Nucleated RBC (0.0-0.012) X10*3/uL Nucleated RBC % (auto) (0.0-0.2) /100WBC Sodium 136 (135-145) mmol/L Potassium 3.1 L D (3.3-5.1) mmol/L Chloride 102 (96-108) mmol/L Carbon Dioxide 26 (22-29) mmol/L Anion Gap 11 L (12-20) BUN 10 (9-16) mg/dL Creatinine 0.67 (0.5-1.4) mg/dL Estim Creat Clear Calc 125.0 Estimated GFR > 60 Random Glucose 143 H (60-115) mg/dL Calcium 8.7 (8.4-10.2) mg/dL Total Bilirubin 0.4 (0.0-1.0) mg/dL AST 15 (5-31) U/L ALT 26 (0-31) U/L Alkaline Phosphatase 75 (39-117) U/L Total Protein 7.3 (6.5-8.0) g/dL Albumin 3.9 (3.5-5.0) g/dL Beta HCG, Quant 724 mIU/mL Urine Color Urine Appearance Urine pH (5.0-8.0) Ur Specific [place] (1.005-1.025) Urine Protein (NEG-TRACE) MG/DL Urine Glucose (UA) (NEG) MG/DL Urine Ketones (NEG) MG/DL Urine Blood (NEG) Urine Nitrite (NEG) Ur Leukocyte Esterase (NEG) Urine RBC (0) /HPF Urine WBC (0-4) /HPF Ur Squamous Epith Cells /LPF Urine Bacteria /LPF Urine Mucus /LPF Urine Test (NEGATIVE) Discharge Plan Discharge Clinical Impression: Vaginal bleeding, Patient Disposition: Still a Patient Prescriptions: No Action hydrochlorothiazide 12.5 mg tablet 1 tab PO DAILY 0RF cyclobenzaprine 10 mg tablet 10 mg PO TID PRN (Reason: muscle spasm) Qty: 14 0RF fluoxetine 20 mg capsule PO 0RF levothyroxine 100 mcg tablet 100 mcg PO DAILY 0RF escitalopram oxalate 10 mg tablet 10 mg PO DAILY 0RF trazodone 100 mg tablet 100 mg PO BEDTIME 0RF albuterol sulfate [ProAir HFA] 90 mcg/actuation HFA aerosol inhaler 0 mcg inhalation 0RF loperamide [Anti-Diarrheal (loperamide)] 2 mg tablet 0 mg PO 0RF loratadine 10 mg tablet 10 mg PO DAILY 0RF montelukast 10 mg tablet 10 mg PO DAILY 0RF ibuprofen 800 mg tablet 800 mg PO Q8H 0RF bisacodyl [Dulcolax (bisacodyl)] 5 mg tablet,delayed release (DR/EC) 10 mg PO ONCE 1 Days Qty: 2 0RF Rx Instructions: Take 2 tablets by mouth at 12:00pm the day before your procedure. polyethylene glycol 3350 [Miralax] 17 gram/dose powder 238 g PO ONCE 1 Days Qty: 238 0RF Rx Instructions: Take as directed by mouth the day before your procedure.
[2021-12-06 06:03] LABS: Alanine Aminotransferase 26 U/L (0-31); Albumin Level 3.9 g/dL (3.5-5.0); Alkaline Phosphatase 75 U/L (39-117); Anion Gap 11 (12-20); Aspartate Amino Transferase 15 U/L (5-31); Bilirubin Total 0.4 mg/dL (0.0-1.0); Blood Urea Nitrogen 10 mg/dL (9-16); Calcium 8.7 mg/dL (8.4-10.2); Carbon Dioxide 26 mmol/L (22-29); Chloride 102 mmol/L (96-108); Estimated Glomerular Filt Rate > 60; Glucose Random 143 mg/dL (60-115); Potassium 3.1 mmol/L (3.3-5.1); Sodium 136 mmol/L (135-145); Total Protein 7.3 g/dL (6.5-8.0)
[2021-12-06 06:11] LABS: HCG Quantitative 724 mIU/mL
--- NOTE | 2021-12-06 08:31 | PC.NURSE ---
pt taken to ultra sound, she denies pain/cramping. will continue to monitor.
== END 2021-12-06 10:43 | disposition home or self-care (01) ==
PROVIDERS: Student in an Organized Health Care Education/Training Program; Emergency Provider Emergency Medicine; PCP Internal Medicine
DX: O20.9 Hemorrhage in early pregnancy, unspecified (principal); Z3A.00 Weeks of gestation of pregnancy not specified
CPT/HCPCS: 36415; 76801; 76817; 80053; 81001; 81025; 84702; 85025; 87086; 96360; 99284; 99285

== ENCOUNTER 2021-12-08 09:42 | Outpatient (REF) | payer MEDICAID, SELFPAY ==
[2021-12-08 11:46] LABS: HCG Quantitative 1466 mIU/mL
[2021-12-08 16:23] LABS: CT PCR NOT DETECTED (Not Detect.); NG PCR NOT DETECTED (Not Detect.)
[2021-12-09 13:11] LABS: BV Int Neg Control Negative (Negative); BV Int Pos Control Positive (Positive)
[2021-12-11 03:12] LABS: HPV mRNA E6/E7 rflx Not Detected (Not Detected)
== END 2021-12-08 09:43 | disposition home or self-care (01) ==
LOC: HO.LAB 09:42
PROVIDERS: PCP Internal Medicine; Visit Provider Advanced Practice Midwife
DX: Z01.419 Encounter for gynecological examination (general) (routine) without abnormal findings (principal); O20.9 Hemorrhage in early pregnancy, unspecified; O20.0 Threatened abortion; Z20.2 Contact with and (suspected) exposure to infections with a predominantly sexual mode of transmission; Z32.01 Encounter for pregnancy test, result positive
CPT/HCPCS: 36415; 81003; 81025; 84702; 87480; 87491; 87510; 87591; 87624; 87660; 88142

== ENCOUNTER 2021-12-15 23:13 | Emergency (ER) | payer MEDICAID, SELFPAY ==
[2021-12-15 23:59] VITALS: BP 131/77; PULSE 85; RESP 16; TEMP 36.2; O2SAT 97; BMI 38.1
[2021-12-16 00:49] LABS: Hematocrit 34.2 % (37.0-47.0); Hemoglobin 10.3 g/dl (12.0-16.0); Mean Corpuscular HGB Conc 30.1 g/dl (31.0-35.0); Mean Corpuscular Hemoglobin 23.6 pg (27.0-33.0); Mean Corpuscular Volume 78.4 fL (80.0-98.0); Mean Platelet Volume 10.3 fL (9.4-12.3); Platelet Count 309 X10*3/uL (160-400); Red Blood Count 4.36 X10*6/uL (4.20-5.50); Red Cell Distribution Width 17.4 % (11.0-16.0); White Blood Count 10.3 X10*3/uL (4.8-10.8)
[2021-12-16 00:54] LABS: Appearance Urine HAZY; Color Urine YELLOW; Glucose Urine UA NEG (NEG); Leukocyte Esterase Urine NEG (NEG); Nitrite Urine NEG (NEG); Specific Gravity - Urine >= 1.030 (1.005-1.025); UACC Culture Trigger NO; Urine Blood 3+ (NEG); Urine Ketones NEG (NEG); Urine Protein NEG (NEG-TRACE)
[2021-12-16 00:55] LABS: UPreg QC Valid YES; Urine Pregnancy POSITIVE (NEGATIVE)
[2021-12-16 01:02] LABS: Bacteria Urine TRACE /LPF; Mucus Urine 2+ /LPF; Squamous Epithelial Cell Urine 2+ /LPF; WBC Urine 0-2 /HPF (0-4)
[2021-12-16 01:08] LABS: Alanine Aminotransferase 21 U/L (0-31); Albumin Level 4.1 g/dL (3.5-5.0); Alkaline Phosphatase 76 U/L (39-117); Anion Gap 14 (12-20); Aspartate Amino Transferase 15 U/L (5-31); Bilirubin Total 0.3 mg/dL (0.0-1.0); Blood Urea Nitrogen 13 mg/dL (9-16); Calcium 9.2 mg/dL (8.4-10.2); Carbon Dioxide 22 mmol/L (22-29); Chloride 104 mmol/L (96-108); Creatinine Clr Calc Pharmacy 103.2; Estimated Glomerular Filt Rate > 60; Glucose Random 99 mg/dL (60-115); Potassium 4.1 mmol/L (3.3-5.1); Sodium 136 mmol/L (135-145); Total Protein 7.8 g/dL (6.5-8.0)
[2021-12-16 01:15] LABS: HCG Quantitative 11024 mIU/mL
== END 2021-12-16 03:00 | disposition left against medical advice (07) ==
PROVIDERS: Student in an Organized Health Care Education/Training Program; Emergency Provider Emergency Medicine
DX: O26.91 Pregnancy related conditions, unspecified, first trimester (principal); R31.9 Hematuria, unspecified; Z3A.01 Less than 8 weeks gestation of pregnancy; Z79.899 Other long term (current) drug therapy
CPT/HCPCS: 36415; 80053; 81001; 81025; 84702; 85027; 99283

== ENCOUNTER 2021-12-17 09:11 | Outpatient (REF) | payer MEDICAID, SELFPAY ==
--- NOTE | ~2021-12-17 | US_ITS ---
EXAMINATION: US OBSTETRICAL ULTRASOUND CLINICAL INFORMATION: Hemorrhage in early . HCG on December 16, 2021 was 11,024 COMPARISON: December 06, 2021. LMP: Unknown. TECHNIQUE: OB ultrasound FINDINGS: There is a single intrauterine gestational sac with visible yolk sac, embryo/fetus, and cardiac activity. There is no significant subchorionic hemorrhage or hematoma. HR: 132 beats per minute. CRL (crown rump length): 0.4 cm (6 weeks 1 day +/- 4 days). JIM (estimated date of delivery): (August 11, 2022 +/- 4 days. MATERNAL ADNEXA: The right maternal ovary measures 2.4 x 2.0 x 1.7 cm. The left maternal ovary measures 4.2 x 2.2 x 2.2 cm. There is a 1.9 x 1.6 x 1.8 cm cyst present. There is no significant maternal adnexal mass. No maternal pelvic ascites. US/US OB <= 14 weeks fetus IMPRESSION: 1. Single intrauterine gestation with ultrasound gestational age of 6 weeks 1 day +/- 4 days. 2. Estimated date of delivery is AUGUST 11, 2022 +/- 4 days. 3. No suspicious maternal adnexal mass or pelvic ascites. Left ovarian cyst.
== END 2021-12-17 09:12 | disposition home or self-care (01) ==
LOC: HO.US 09:11
PROVIDERS: PCP Internal Medicine; Visit Provider Advanced Practice Midwife
DX: O20.9 Hemorrhage in early pregnancy, unspecified (principal)
CPT/HCPCS: 76801

== ENCOUNTER → 2022-10-14 09:46 | Outpatient (BNVA) | payer MEDICAID, SELFPAY | PROVIDERS: PCP Internal Medicine; Visit Provider Nurse Practitioner Family | DX: G47.33 Obstructive sleep apnea (adult) (pediatric) (principal); I10 Essential (primary) hypertension | CPT/HCPCS: 99202 ==

== ENCOUNTER → 2022-11-14 08:01 | Outpatient (BNVA) | payer MEDICAID, SELFPAY | PROVIDERS: PCP Internal Medicine; Visit Provider Obstetrics & Gynecology | DX: Z30.09 Encounter for other general counseling and advice on contraception (principal) | CPT/HCPCS: 99212 ==

== ENCOUNTER 2022-11-22 08:34 | Outpatient (REF) | payer MEDICAID, SELFPAY ==
[2022-11-22 15:16] LABS: CT PCR NOT DETECTED (Not Detect.); NG PCR NOT DETECTED (Not Detect.)
== END 2022-11-22 08:35 | disposition home or self-care (01) ==
LOC: HO.LNP 08:34
PROVIDERS: PCP Internal Medicine; Visit Provider Obstetrics & Gynecology
DX: Z30.430 Encounter for insertion of intrauterine contraceptive device (principal)
CPT/HCPCS: 0353U; 58300; J7298

== ENCOUNTER → 2023-02-09 08:44 | Outpatient (BNVA) | payer MEDICAID, SELFPAY | PROVIDERS: PCP Internal Medicine; Visit Provider Obstetrics & Gynecology | DX: Z30.431 Encounter for routine checking of intrauterine contraceptive device (principal) | CPT/HCPCS: 99212 ==

== ENCOUNTER → 2023-02-14 10:47 | Outpatient (REF) | payer MEDICAID, SELFPAY | LOC: HO.SL 10:47 | PROVIDERS: PCP Internal Medicine; Visit Provider Nurse Practitioner Family | DX: G47.33 Obstructive sleep apnea (adult) (pediatric) (principal) | CPT/HCPCS: 95806 ==

== ENCOUNTER 2023-02-21 15:00 | Outpatient (REF) | payer MEDICAID, SELFPAY ==
[2023-02-24 00:54] LABS: HPV mRNA E6/E7 rflx Not Detected (Not Detected)
== END 2023-02-21 15:01 | disposition home or self-care (01) ==
LOC: HO.LNP 15:00
PROVIDERS: PCP Internal Medicine; Visit Provider Advanced Practice Midwife
DX: Z01.419 Encounter for gynecological examination (general) (routine) without abnormal findings (principal); Z11.51 Encounter for screening for human papillomavirus (HPV)
CPT/HCPCS: 87624; 88142

== ENCOUNTER 2023-03-03 21:20 | Emergency (ER) | payer MEDICAID, SELFPAY ==
--- NOTE | ~2023-03-03 | XR_ITS ---
EXAMINATION: XR CHEST CLINICAL INFORMATION: Chest pain COMPARISON: 09/25/2018 TECHNIQUE: Frontal view of the chest was obtained. FINDINGS: The lungs are hypoinflated. No focal consolidation is seen. There is suggestion of mild left basilar atelectasis. No evidence of pneumothorax, significant pleural effusion, or overt pulmonary edema. Cardiac silhouette appears near the upper limits of normal in size and may be accentuated by low lung volumes. No acute osseous findings are seen. XR/XR chest 1V IMPRESSION: Low lung volumes without definite acute findings. Suggestion of mild left basilar atelectasis.
[2023-03-03 21:22] VITALS: BP 152/96; PULSE 83; RESP 18; TEMP 36.1; O2SAT 99; BMI 24.1
[2023-03-03 21:42] LABS: MANUAL DIFF FLAG NO
[2023-03-03 21:44] LABS: Basophils Percent Auto 0.2 % (0-2); Eosinophils Absolute Auto 0.1 X10*3/uL (0.0-0.4); Eosinophils Percent Auto 1.2 % (0-4); Hematocrit 37.5 % (37.0-47.0); Hemoglobin 12.2 g/dl (12.0-16.0); Imm Gran Abs Auto 0.04 X10*3/uL (0.00-0.03); Imm Gran Pct Auto 0.4 % (0.0-0.4); Lymphocytes Absolute Auto 2.6 X10*3/uL (1.2-4.9); Lymphocytes Percent Auto 24.8 % (20-40); Mean Corpuscular HGB Conc 32.5 g/dl (31.0-35.0); Mean Corpuscular Volume 86.2 fL (80.0-98.0); Mean Platelet Volume 10.2 fL (9.4-12.3); Monocytes Absolute Auto 0.6 X10*3/uL (0.1-1.2); Neutrophils Percent Auto 67.4 % (45-73); Platelet Count 280 X10*3/uL (160-400); Red Blood Count 4.35 X10*6/uL (4.20-5.50); Red Cell Distribution Width 13.2 % (11.0-16.0); White Blood Count 10.4 X10*3/uL (4.8-10.8)
[2023-03-03 21:55] LABS: Anion Gap 14 (12-20); Blood Urea Nitrogen 16 mg/dL (9-16); Calcium 9.2 mg/dL (8.4-10.2); Carbon Dioxide 24 mmol/L (22-29); Chloride 103 mmol/L (96-108); Creatinine Clr Calc Pharmacy 113.9; Estimated Glomerular Filt Rate > 60; Glucose Random 110 mg/dL (60-115); Potassium 3.4 mmol/L (3.3-5.1); Sodium 138 mmol/L (135-145)
[2023-03-03 22:07] LABS: Troponin-I High Sensitivity < 2.7 ng/L (<3.5-17.0)
[2023-03-03 23:50] VITALS: BP 137/90; PULSE 76; PULSE 80; RESP 16; TEMP 36.9; O2SAT 98
--- NOTE | 2023-03-04 02:23 | ED.CHESTPAIN ---
HPI - Chest Pain General Chief Complaint: Chest Pain Stated Complaint: chest pain Time Seen by Provider: 03/04/23 02:19 Source: patient Mode of arrival: ambulatory Limitations: no limitations History of Present Illness HPI narrative: Patient comes to the emergency room complaining of left-sided chest pain. Patient states that she usually wakes up with pain whenever she sleeps in upward positions. Patient complaining of shortness of breath. The pain has been present with movement since this morning, approximately 20 hours by now. At this time, patient is asymptomatic. Related Data Home Medications Medication Instructions Recorded Confirmed albuterol sulfate 90 mcg/actuation 0 mcg inhalation 06/17/21 02/21/23 aerosol inhaler (ProAir HFA) ibuprofen 800 mg tablet 800 mg PO Q8H 06/17/21 02/21/23 fenofibrate micronized 43 mg 43 mg PO QAM 02/09/23 02/21/23 capsule levonorgestrel 21 mcg/24 hours (8 intrauterine 02/09/23 02/21/23 yrs) 52 mg intrauterine device (Mirena) levothyroxine 137 mcg tablet 137 mcg PO QAM 02/09/23 02/21/23 Allergies Allergy/AdvReac Type Severity Reaction Status Date / Time latex [LATEX] Allergy Intermediate HANDS SWELL Verified 02/21/23 15:18 latex Allergy Unknown hives Uncoded 02/21/23 15:18 Review of Systems Review of Systems: Constitutional : No Weight loss, No Fever, No Chills, No Night Sweats, No Fatigue, No Malaise ENT/Mouth : No Hearing loss, No Ear Pain, No Nasal Congestion, No Sinus Pain, No Hoarseness, No sore throat, No Rhinorrhea, No Swallowing Difficulty Eyes: No Eye Pain, No Swelling, No Redness, No Foreign Body, No Discharge, No Vision Changes Cardiovascular : Complaining of chest wall pain on the left side under the breast,no SOB, No Dyspnea on Exertion, No Orthopnea, No Edema, No Palpitations Respiratory : No Cough, No Sputum, No Wheezing, No Smoke Exposure, No Dyspnea Gastrointestinal : No Nausea, No Vomiting, No Diarrhea, No Constipation, No abdominal Pain, No Hematochezia, No Melena Genitourinary : no irregular bleeding, No Dysuria, No Urinary Frequency, No Hematuria, No Urinary Incontinence, No Urgency, No Flank Pain, No Urinary Flow Changes, No Hesitancy Musculoskeletal : No joint pain, No Myalgias, No Joint Swelling Skin : No Skin Lesions, No rash Neuro : No Weakness, No Numbness, No Paresthesias, No Loss of Consciousness, No Dizziness, No Headache Psych : No Anxiety/Panic, No Depression, No SI/HI/AH/VH, No Social Issues, Heme/Lymph: No Bruising, No Bleeding,No Lymphadenopathy Endocrine : No Polyuria, No Polydipsia, No Temperature Intolerance [facility] Past Medical History Medical History Anemia Asthma Depression Diastasis recti GERD (gastroesophageal reflux disease) History of hypothyroidism HTN (hypertension) Hx of sleep apnea Surgical History History of umbilical hernia repair (05/13/19) Hx of section Family History Family History Father No problems noted. Mother HTN (hypertension) Asthma Hyperthyroidism Diabetes Paternal Aunt Breast cancer Social History Social History Household Members: Spouse and Children Housing: Apartment Alcohol intake: former Patient Tobacco Use Status: Never used Tobacco Smoked in Last 30 Days: No Use of substances other than those prescribed or required for medical reasons: No Advance Directives: No Advance Directives Information Provided: Yes Patient : No Sexual orientation: Straight/Heterosexual Gender identity: Female Physical Exam Vital Signs: Vital Signs: Last Vital Signs Temp 98.4 F 03/03/23 23:50 Pulse 80 03/03/23 23:50 Resp 16 03/03/23 23:50 BP 137/90 H 03/03/23 23:50 Pulse Ox 98 03/03/23 23:50 O2 Del Method Room Air 03/03/23 23:50 BMI result Body Mass Index 24.1 Const: Other: Appearance: Alert. Oriented X3. No acute distress. Eyes: Pupils equal, round and reactive to light. ENT: Pharynx normal. Neck: Normal inspection. Neck supple. No lymph nodes noted. No crepitus CVS: Normal heart rate and rhythm. Pulses normal. Normal S1 and S2 Respiratory: No respiratory distress. Breath sounds normal. No Wheezing. No rales Abdomen: Soft and nontender. No rigidity. No distention. Skin: Skin warm and dry. Normal skin color. Normal skin turgor. Extremities: No lower extremity edema. No Lacerations. No Rash Neuro: Oriented X 3. No motor deficit. No sensory deficit. Moving all extremities. No slurred speech. CN 2 through 12 grossly intact Psych: calm, cooperative, normal affect Medical Decision Making Medical Decision Making MDM Narrative: -patient came in complaining of chest pain that started this morning, admission was considered. -troponin is negative -my interpretation of EKG: Normal sinus rhythm, heart rate 82, no seizing depression or elevation, no T-wave inversion, QTC 488 (of note, the EKGs are not crossing over to the system) -patient is symptomatic, only pain with certain movements especially arm abduction -wells criteria score for pulmonary embolism is 0, pulmonary embolism very unlikely -my interpretation of chest x-ray: No pneumonia, no rib fracture Differential Diagnosis Differential Diagnoses: The differential diagnosis associated with the presentation includes (Costochondritis, pleurisy, ACS, PE) Lab Data [facility] Lab Attestation statement: I reviewed the patient's lab results. Troponin negative 03/03/23 21:36 03/03/23 21:36 Labs: Lab Results 03/03/23 03/03/23 03/03/23 Range/Units 21:36 21:36 21:36 WBC 10.4 (4.8-10.8) X10*3/uL RBC 4.35 (4.20-5.50) X10*6/uL Hgb 12.2 (12.0-16.0) g/dl Hct 37.5 (37.0-47.0) % MCV 86.2 (80.0-98.0) fL MCH 28.0 (27.0-33.0) pg MCHC 32.5 (31.0-35.0) g/dl RDW 13.2 (11.0-16.0) % Plt Count 280 (160-400) X10*3/uL MPV 10.2 (9.4-12.3) fL Immature Gran % (Auto) 0.4 (0.0-0.4) % Neut % (Auto) 67.4 (45-73) % Lymph % (Auto) 24.8 (20-40) % [place] % (Auto) 6.0 (2-11) % Eos % (Auto) 1.2 (0-4) % Baso % (Auto) 0.2 (0-2) % Lymph # (Auto) 2.6 (1.2-4.9) X10*3/uL [place] # (Auto) 0.6 (0.1-1.2) X10*3/uL Eos # (Auto) 0.1 (0.0-0.4) X10*3/uL Baso # (Auto) 0.0 (0.0-0.2) X10*3/uL Abs Immat Gran (auto) 0.04 H (0.00-0.03) X10*3/uL Absolute Neuts (auto) 7.0 (2.0-8.3) x10*3/uL Absolute Nucleated RBC 0.000 (0.0-0.012) X10*3/uL Nucleated RBC % (auto) 0.0 (0.0-0.2) /100WBC Sodium 138 (135-145) mmol/L Potassium 3.4 (3.3-5.1) mmol/L Chloride 103 (96-108) mmol/L Carbon Dioxide 24 (22-29) mmol/L Anion Gap 14 (12-20) BUN 16 (9-16) mg/dL Creatinine 0.77 (0.5-1.4) mg/dL Estim Creat Clear Calc 113.9 Estimated GFR > 60 Random Glucose 110 (60-115) mg/dL Calcium 9.2 (8.4-10.2) mg/dL Troponin I High Sens < 2.7 (<3.5-17.0) ng/L Radiology Impression Discussion of test interpretation with radiology: I have reviewed the radiologist's reading. Radiologist Impression: FINDINGS: The lungs are hypoinflated. No focal consolidation is seen. There is suggestion of mild left basilar atelectasis. No evidence of pneumothorax, significant pleural effusion, or overt pulmonary edema. Cardiac silhouette appears near the upper limits of normal in size and may be accentuated by low lung volumes. No acute osseous findings are seen. XR/XR chest 1V IMPRESSION: Low lung volumes without definite acute findings. Suggestion of mild left basilar atelectasis Discharge Plan Discharge Clinical Impression: Atypical chest pain Patient Disposition: Home, Self-Care Instructions: Chest Wall Pain (ED) Additional Instructions: Please follow-up with your primary care physician tomorrow. If you have any worsening or new symptoms, please return to the emergency room or call 911 Prescriptions: No Action albuterol sulfate [ProAir HFA] 90 mcg/actuation HFA aerosol inhaler 0 mcg inhalation ibuprofen 800 mg tablet 800 mg PO Q8H Mirena 21 mcg/24 hours (8 yrs) 52 mg intrauterine device intrauterine fenofibrate micronized 43 mg capsule 43 mg PO QAM levothyroxine 137 mcg tablet 137 mcg PO QAM
== END 2023-03-04 04:28 | disposition home or self-care (01) ==
PROVIDERS: Emergency Provider Emergency Medicine; PCP Internal Medicine
DX: R07.89 Other chest pain (principal); I10 Essential (primary) hypertension; Z79.899 Other long term (current) drug therapy
CPT/HCPCS: 36415; 71045; 80048; 84484; 85025; 93005; 99284; 99285

== ENCOUNTER 2023-07-12 11:02 | Outpatient (REF) | payer MEDICAID, SELFPAY ==
[2023-07-12 13:19] LABS: MANUAL DIFF FLAG NO
[2023-07-12 13:37] LABS: Basophils Percent Auto 0.6 % (0-2); Eosinophils Absolute Auto 0.3 X10*3/uL (0.0-0.4); Eosinophils Percent Auto 4.5 % (0-4); Hematocrit 39.4 % (37.0-47.0); Hemoglobin 12.7 g/dl (12.0-16.0); Imm Gran Abs Auto 0.04 X10*3/uL (0.00-0.03); Imm Gran Pct Auto 0.6 % (0.0-0.4); Lymphocytes Absolute Auto 2.1 X10*3/uL (1.2-4.9); Lymphocytes Percent Auto 29.8 % (20-40); Mean Corpuscular HGB Conc 32.2 g/dl (31.0-35.0); Mean Corpuscular Hemoglobin 28.9 pg (27.0-33.0); Mean Corpuscular Volume 89.5 fL (80.0-98.0); Mean Platelet Volume 11.1 fL (9.4-12.3); Monocytes Absolute Auto 0.4 X10*3/uL (0.1-1.2); Monocytes Percent Auto 5.2 % (2-11); Neutrophils Absolute Auto 4.1 x10*3/uL (2.0-8.3); Neutrophils Percent Auto 59.3 % (45-73); Platelet Count 297 X10*3/uL (160-400); Red Cell Distribution Width 13.3 % (11.0-16.0); White Blood Count 6.9 X10*3/uL (4.8-10.8)
[2023-07-12 14:14] LABS: TSH reflex Free T4 6.02 uIU/mL (0.32-4.0)
[2023-07-12 14:52] LABS: Free T4 (Free Thyroxine) 0.84 ng/dL (0.71-1.85)
== END 2023-07-12 11:03 | disposition home or self-care (01) ==
LOC: HO.HHCL 11:02
PROVIDERS: Visit Provider Internal Medicine
DX: E03.9 Hypothyroidism, unspecified (principal)
CPT/HCPCS: 36415; 84439; 84443; 85025

== ENCOUNTER 2023-09-12 10:57 | Outpatient (REF) | payer MEDICAID, SELFPAY ==
[2023-09-12 12:48] LABS: Hematocrit 38.4 % (37.0-47.0); Hemoglobin 12.4 g/dl (12.0-16.0); Mean Corpuscular HGB Conc 32.3 g/dl (31.0-35.0); Mean Corpuscular Hemoglobin 27.9 pg (27.0-33.0); Mean Corpuscular Volume 86.5 fL (80.0-98.0); Mean Platelet Volume 10.9 fL (9.4-12.3); Platelet Count 265 X10*3/uL (160-400); Red Blood Count 4.44 X10*6/uL (4.20-5.50); Red Cell Distribution Width 13.3 % (11.0-16.0); White Blood Count 7.8 X10*3/uL (4.8-10.8)
[2023-09-12 13:53] LABS: HCG Quantitative < 2 mIU/mL; TSH reflex Free T4 2.77 uIU/mL (0.32-4.0)
[2023-09-12 16:32] LABS: CT PCR NOT DETECTED (Not Detect.); NG PCR NOT DETECTED (Not Detect.)
[2023-09-14 02:09] LABS: Prolactin 7.1 ng/mL
== END 2023-09-12 10:58 | disposition home or self-care (01) ==
LOC: HO.LAB 10:57
PROVIDERS: PCP Internal Medicine; Visit Provider Obstetrics & Gynecology
DX: N93.9 Abnormal uterine and vaginal bleeding, unspecified (principal); Z11.3 Encounter for screening for infections with a predominantly sexual mode of transmission; Z97.5 Presence of (intrauterine) contraceptive device
CPT/HCPCS: 0353U; 36415; 81025; 84146; 84443; 84702; 85027; 99212

== ENCOUNTER 2023-09-12 10:57 | Outpatient (AMB) | payer MEDICAID, SELFPAY ==
--- NOTE | 2023-09-12 11:08 | A.OFFVIS_ITS ---
Intake Vital Signs 09/12/23 11:09 Height 5 ft 11 in Weight 185 lb BMI 25.8 BP 118/86 Intake Visit Reasons: PCB/PCP Ref Student Success Coach Required: Yes Student Success Coach Language: Vp Lab Name: Delmy TRISTAN Information Interpreted: non-clinical & clinical Operator Coating Furnace: Operator Coating Furnace Present (Delmy TRISTAN) Accompanied by: Self / Same As Patient Allergies latex [LATEX] Allergy (Intermediate, Verified 09/12/23 11:18) HANDS SWELL latex Allergy (Unknown, Uncoded 09/12/23 11:18) hives HPI HPI Comments History of Present Illness Details Presenting complaining of continues intermenstrual spotting since Mirena IUD insertion. Last co testing was in 02/24 was negative [facility] Medical History HTN (hypertension) Anemia History of hypothyroidism Hx of sleep apnea Diastasis recti Depression Asthma GERD (gastroesophageal reflux disease) Surgical History Hx of section History of umbilical hernia repair (05/13/19) Family History Father No problems noted. Mother HTN (hypertension) Asthma Hyperthyroidism Diabetes Paternal Aunt Breast cancer Social History Household Members: Spouse and Children Housing: Apartment Alcohol intake: former Patient Tobacco Use Status: Never used Tobacco Sexual orientation: Straight/Heterosexual Gender identity: Female Female Reproductive History Menstrual Age of Menarche: 13 Review of Systems Const All systems reviewed & are unremarkable except as noted in HPI and below Physical Exam General: Yes no CVA tenderness External Female Exam: normal external appearance and normal appearance of the urethra Speculum Exam - Vagina: normal appearance of the vagina, normal palpation, no lesions and no masses Speculum Exam - Cervix: normal appearance of the cervix, normal palpation, no lesions, no masses, nontender and Other cervical findings present (IUD string in place) Bimanual exam- vagina & uterus: normal bimanual exam, normal palpation, uterine size normal, normal palpation, uterine shape normal, No Cervical tenderness present and non-tender Bimanual Exam- Adnexa, other: normal adnexae Back/Spine/Pelvis Back: no CVA tenderness Assessment & Plan Assessment & Plan (1) Abnormal uterine bleeding: Comment: On Mirena IUD Code(s): N93.9 - Abnormal uterine and vaginal bleeding, unspecified Plan: UPT done in the office was negative. GC and chlamydia taken CBC, TSH, prolactin, HCG, and pelvic ultrasound ordered. Discussed with the patient the different causes of abnormal bleeding including thyroid disorders, uterine and ovarian pathology, endometrial hyperplasia, carcinoma and other potential causes. Discussed with the patient the work up including CBC (to r/o anemia), TSH, pelvic Ultrasound, endometrial biopsy to r/o endometrial pathology. All questions answered and the patient verbalized understanding. [facility] an [facility] biopsy in 2 weeks. Orders: Orders TSH reflex Free T4 Today N93.9 - Abnormal uterine and vaginal bleeding, unspecified Prolactin Today N93.9 - Abnormal uterine and vaginal bleeding, unspecified Complete Blood Count no Diff Today N93.9 - Abnormal uterine and vaginal bleeding, unspecified HCG Quantitative Today N93.9 - Abnormal uterine and vaginal bleeding, u nspecified US pelvic and transvaginal Today N93.9 - Abnormal uterine and vaginal bleeding, unspecified Coding Level of Care Code Est Pt Level 3 (83068) Diagnoses Abnormal uterine bleeding N93.9
[2023-09-12 11:09] VITALS: BP 118/86; BMI 25.8
== END 2023-09-12 11:32 | disposition home or self-care (01) ==
LOC: HO.HWS 10:57
PROVIDERS: PCP Internal Medicine; Visit Provider Obstetrics & Gynecology
DX: N93.9 Abnormal uterine and vaginal bleeding, unspecified (principal); Z32.02 Encounter for pregnancy test, result negative
CPT/HCPCS: 99213

== ENCOUNTER 2023-09-12 11:41 | Outpatient (REF) | payer MEDICAID, SELFPAY | END 2023-09-12 11:42 | disposition home or self-care (01) | LOC: HO.LNP 11:41 | PROVIDERS: Visit Provider Obstetrics & Gynecology | DX: Z13.89 Encounter for screening for other disorder (principal) ==

== ENCOUNTER 2023-10-06 11:23 | Outpatient (REF) | payer MEDICAID, SELFPAY ==
--- NOTE | ~2023-10-06 | US_ITS ---
EXAMINATION: US PELVIS CLINICAL INFORMATION: Abnormal uterine and vaginal bleeding. COMPARISON: Obstetrical ultrasound 12/06/2021. TECHNIQUE: Ultrasound of the pelvis is performed using both transabdominal and transvaginal transducers along with Doppler. Transvaginal imaging is performed due to inadequate visualization transabdominally. FINDINGS: Uterus: The uterus is anteverted and measures 9.5 x 5.4 x 5.9 cm. The double wall endometrial thickness is 0.7 cm. IUD appears appropriately positioned. The uterus is smooth in contour and has normal myometrial echogenicity. No visible fibroid. Adnexa: The ovaries appear normal. US/US pelvic and transvaginal IMPRESSION: IUD appears in appropriate position. Endometrial thickness 0.7 cm. No visible uterine or endometrial abnormality.
== END 2023-10-06 11:24 | disposition home or self-care (01) ==
LOC: HO.US 11:23
PROVIDERS: PCP Internal Medicine; Visit Provider Obstetrics & Gynecology
DX: N93.9 Abnormal uterine and vaginal bleeding, unspecified (principal)
CPT/HCPCS: 76830; 76856

== ENCOUNTER 2023-10-24 09:55 | Outpatient (AMB) | payer MEDICAID, SELFPAY ==
--- NOTE | 2023-10-24 10:02 | A.OFFVIS_ITS ---
Intake Intake Visit Reasons: US follow up/EMB Allergies latex [LATEX] Allergy (Intermediate, Verified 09/12/23 11:18) HANDS SWELL latex Allergy (Unknown, Uncoded 09/12/23 11:18) hives HPI HPI Comments History of Present Illness Details Presenting for EMB [facility] Medical History HTN (hypertension) Anemia History of hypothyroidism Hx of sleep apnea Diastasis recti Depression Asthma GERD (gastroesophageal reflux disease) Surgical History Hx of section History of umbilical hernia repair (05/13/19) Family History Father No problems noted. Mother HTN (hypertension) Asthma Hyperthyroidism Diabetes Paternal Aunt Breast cancer Social History Household Members: Spouse and Children Housing: Apartment Alcohol intake: former Patient Tobacco Use Status: Never used Tobacco Sexual orientation: Straight/Heterosexual Gender identity: Female Female Reproductive History Menstrual Age of Menarche: 13 Office Procedures Endometrial Biopsy Details: The patient was counseled regarding the indication and benefits of endometrial sampling to rule out endometrial pathology including not limited to endometrial hyperplasia or endometrial cancer and others; The alternatives (Either do nothing vs. hysteroscopy D&C) & the risks were discussed with the patient including but not limited: pain, uterine perforation, bleeding, infection, possible injury to bladder, bowel, ureter, possible need for blood transfusion with all its possible risks. The patient verbalized understanding all questions answered and signed consent. In office urine test was negative The patient was placed into the dorsal lithotomy position; a speculum was inserted in the vagina. Using aseptic technique for the procedure, the cervix was cleansed with Betadine. The anterior lip of the cervix was grasped with a single tooth tenaculum. The uterus was sounded to 7 cm with a 4 mm Pipelle was used. Tissues samples were obtained and placed in formalin, in a patient labeled container and sent to the pathology department. At the end of the procedure, there was minimal bleeding noted The patient tolerated the procedure well and was discharged in good condition with the following instructions: Nothing in the vagina until the bleeding stops. No sex until the bleeding stops, to call if any of the following occurs: fever (>100.4), flu-like symptoms, abdominal pain, heavy bleeding, four smelling vaginal discharge. The patient was instructed to schedule a Follow up appointment in 2 weeks to dis cuss pathology results of the biopsy and treatment options. This note was generated with a voice recognition program. Some errors may have been overlooked during the review of this note. Sometimes these errors may affect the content or meaning of a given sentence. [id number] Biopsy Assessment & Plan Assessment & Plan (1) Abnormal uterine bleeding: Comment: On Mirena IUD Code(s): N93.9 - Abnormal uterine and vaginal bleeding, unspecified Plan: EMB done, see procedure note Orders: Orders AMB Endometrial Biopsy Today N93.9 - Abnormal uterine and vaginal bleeding, unspecified Coding Level of Care Code Procedure Only Diagnoses Abnormal uterine bleeding N93.9 CPT Codes Endometrial Biopsy - CPT: 21265-Anwiwfxavbx Biopsy ([id number])
== END 2023-10-24 10:40 | disposition home or self-care (01) ==
LOC: HO.HWS 09:55
PROVIDERS: PCP Internal Medicine; Visit Provider Obstetrics & Gynecology
DX: N93.9 Abnormal uterine and vaginal bleeding, unspecified (principal)
CPT/HCPCS: 58100

== ENCOUNTER 2023-10-24 09:55 | Outpatient (REF) | payer MEDICAID, SELFPAY | END 2023-10-24 09:56 | disposition home or self-care (01) | LOC: HO.LNP 09:55 | PROVIDERS: PCP Internal Medicine; Visit Provider Obstetrics & Gynecology | DX: N93.9 Abnormal uterine and vaginal bleeding, unspecified (principal) | CPT/HCPCS: 58100; 88305 ==

== ENCOUNTER 2024-01-10 10:15 | Outpatient (AMB) | payer MEDICAID, SELFPAY ==
--- NOTE | 2024-01-10 10:24 | MHC.OFFVIS ---
Vital Signs 01/10/24 10:25 Height 4 ft 11 in Weight 185 lb BMI 37.4 BP 118/66 Intake Visit Reasons: IUD removal consult Regional Telecommunications Specialist Required: Yes Regional Telecommunications Specialist Language: Aircraft Load Controller Name: Delmy TRISTAN Information Interpreted: non-clinical & clinical Social Security Assessor: Social Security Assessor Present (Delmy TRISTAN) Accompanied by: Self / Same As Patient Allergies latex [LATEX] Allergy (Intermediate, Verified 01/10/24 10:32) HANDS SWELL Is last menstrual period known: No (mirena) HPI Comments Details: The patient is presenting for follow-up to discuss the results of her abnormal uterine bleeding workup and options of treatment. The patient is interested in IUD removal since she has not been sexually active and is having difficulty losing weight. The following workup was done.: H&H= 12.4/38.4 TSH, prolactin, hCG, GC and chlamydia were negative. Endometrial biopsy pathology showed the following: Endometrium, biopsy: Benign endometrium with extensive breakdown and pseudodecidual change consistent with exogenous progestin; no atypia or hyperplasia identified. Co testing was done in 02/24 was negative. Pelvic ultrasound showed the following: Uterus: The uterus is anteverted and measures 9.5 x 5.4 x 5.9 cm. The double wall endometrial thickness is 0.7 cm. IUD appears appropriately positioned. The uterus is smooth in contour and has normal myometrial echogenicity. No visible fibroid. Adnexa: The ovaries appear normal. [facility] Medical History HTN (hypertension) Anemia History of hypothyroidism Hx of sleep apnea Diastasis recti Depression Asthma GERD (gastroesophageal reflux disease) Surgical History Hx of section History of umbilical hernia repair (05/13/19) Family History Father No problems noted. Mother HTN (hypertension) Asthma Hyperthyroidism Diabetes Paternal Aunt Breast cancer Social History Household Members: Spouse and Children Housing: Apartment Alcohol intake: former Patient Tobacco Use Status: Never used Tobacco Sexual orientation: Straight/Heterosexual Gender identity: Female Female Reproductive History Menstrual Age of Menarche: 13 Review of Systems Const All systems reviewed & are unremarkable except as noted in HPI and below Reports as per HPI and Reports no additional complaints GI Reports no additional complaints Reports no additional complaints Physical Exam Vital Signs: Last Vital Signs BP 118/66 01/10/24 10:25 BMI result Body Mass Index 37.4 Office Procedures IUD Insert/Removal Details Details: Counseling/Consent: After discussing with the patient the risks of the procedure including bleeding, infection, scar tissue formation, , possible injury to blood vessels or nerves, chronic arm pain, blood transfusion, and irregular unpredictable bleeding Alternative options were discussed with the patient including but not limited: Do nothing. The patient signed the consent and agreed with the plan; all questions answered. Urine test was done in the office and was negative Preop dx: Requesting IUD removal Op: IUD removal Post op dx: same EBL= 10 cc Procedure: The patient was put in the dorsal lithotomy position a speculum was inserted in the vagina the IUD thread identified. Using a Inocencia clamp the thread was grasped and the IUD pulled out with no complications. The patient tolerated the procedure well and was advised to use a different method for contraception. Discharge instructions: Instructions were given to the pt to call if temp>100.4, abdominal pain heavy vaginal bleeding, n/v occur. The patient verbalized understanding and all questions answered. This note was generated with a voice recognition program. Some errors may have been overlooked during the review of this note. Sometimes these errors may affect the content or meaning of a given sentence. [id number] Removal Procedure code (CPT) selection complete Assessment & Plan Assessment & Plan (1) Abnormal uterine bleeding: Comment: On Mirena IUD Code(s): N93.9 - Abnormal uterine and vaginal bleeding, unspecified Category: Medical Plan: Discussed with the patient the results of the work up done and options of treatment including Lysteda, BCP's, keeping the Mirena IUD, endometrial ablation and hysterectomy. All pros, cons, risks and benefits if each option was discussed with the patient and the patient decided to have Mirena IUD removed, would like to think about different options of treatment and get back to us. All questions answered the patient verbalized understanding. (2) Encounter for IUD removal: Code(s): Z30.432 - Encounter for removal of intrauterine contraceptive device Category: Medical Plan: Mirena IUD removed, see procedure (3) Family planning: Code(s): Z30.09 - Encounter for other general counseling and advice on contraception Category: Social Hx Plan: Discussed with the patient the different options of control including control pills/Nuvaring, Depo Medroxy Progesterone Acetate, IUD ( levonorgestrel, Copper), sterilization. All the pros, cons, risks and benefits of each were discussed with the patient. The patient decided to think about it and get back to us. Instructions given the patient to use backup method for control to decrease the risk of . All questions answered, the patient verbalized understanding and is aware that condom use is associated with a high failure rate/ rate but will get back to us as soon as possible regarding her contraceptive method decision. Coding Level of Care Code Est Pt Level 3 (58764) Procedure Only Diagnoses Abnormal uterine bleeding N93.9 Encounter for IUD removal Z30.432 Family planning Z30.09 CPT Codes Details - CPT: 70079-UTL Removal ([id number])
[2024-01-10 10:25] VITALS: BP 118/66; BMI 37.4
== END 2024-01-10 11:34 | disposition home or self-care (01) ==
PROVIDERS: PCP Internal Medicine; Referring Provider Internal Medicine; Visit Provider Obstetrics & Gynecology
DX: N93.9 Abnormal uterine and vaginal bleeding, unspecified (principal); Z30.432 Encounter for removal of intrauterine contraceptive device; Z30.09 Encounter for other general counseling and advice on contraception
CPT/HCPCS: 58301; 99213

== ENCOUNTER → 2024-01-10 10:15 | Outpatient (BNVA) | payer MEDICAID, SELFPAY | PROVIDERS: PCP Internal Medicine; Visit Provider Obstetrics & Gynecology | DX: Z30.432 Encounter for removal of intrauterine contraceptive device (principal); Z30.09 Encounter for other general counseling and advice on contraception; N93.9 Abnormal uterine and vaginal bleeding, unspecified | CPT/HCPCS: 58301; 99212 ==

== ENCOUNTER 2024-02-26 11:21 | Outpatient (AMB) | payer MEDICAID, SELFPAY ==
[2024-02-26 11:33] VITALS: BP 118/70; BMI 38.4
--- NOTE | 2024-02-26 11:33 | MHC.OFFVIS ---
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 Waddell about a month ago and she had had full evaluations and after discussion about all of her symptoms she had requested Mirena removal she was concerned that the Mirena was contributing to her difficulty with losing weight. She wanted to be without anything for a while she is very sure that she would use condoms if she has sex. Her last Pap smear was last year was negative. Her primary care providers through the [facility] and she says that she has been talking to her about diet and exercise she personally is not exercising very much yet and is not having much success with diet she says her doctor talked her about a medication that can be injected to help her with weight loss but she has not gotten to that point yet. She says she is prediabetic and she is hypothyroid but that is controlled. She also said when questioned about her diastasis that her doctor told her to talk to gynecology about that. [facility] Medical History (Updated 02/26/24 @ 12:35 by Chelsi Orta CNM) HTN (hypertension) Anemia History of hypothyroidism Hx of sleep apnea Diastasis recti Depression Asthma GERD (gastroesophageal reflux disease) Surgical History Hx of section History of umbilical hernia repair (05/13/19) Family History Father No problems noted. Mother HTN (hypertension) Asthma Hyperthyroidism Diabetes Paternal Aunt Breast cancer Social History (Reviewed 06/24/24 @ 11:35 by Tanna Coats [facility] Household Members: Spouse and Children Housing: Apartment Alcohol intake: former Patient Tobacco Use Status: Never used Tobacco Sexual orientation: Straight/Heterosexual Gender identity: Female Female Reproductive History Menstrual Age of Menarche: 13 Duration of menses: 3-5 days control method: none Total pregnancies: 4 Full term: 4 Date of last pap smear: 02/21/23 (negative,previous pap 2021,WNL) History of abnormal pap smear: Yes (2020,Ascus +HPV) Physical Exam Vital Signs: Last Vital Signs BP 118/70 02/26/24 11:33 BMI result Body Mass Index 38.4 Const General: healthy appearing, comfortable, no acute distress, well developed and alert Nutritional Appearance: average body habitus and obese Orientation/consciousness: patient oriented x3 Limitations: no limitations HEENT Head: Yes normocephalic Neck Neck: Yes normal visual inspection Thyroid: Thyroid normal Chest Chest palpation & inspection: normal inspection of the chest Breast/axilla inspection: normal inspection of the breasts and normal inspection of the axillae Breast/axilla palpation: normal palpation of the breasts and normal palpation of the axillae Resp Effort & Inspection: normal respiratory effort GI Other: Adipose tissue and when patient tenses abdominal muscles there is a 4 cm diastasis Inspection: Yes normal to inspection, No Abdominal wall edema and No distended Palpation (GI): Soft to palpation and nontender Other: External exam within normal limits evidence of obstetrical repairs. Vagina pink and moist cervix multiparous pink smooth normal scant clear mucus cervix mobile nontender uterus mobile nontender difficult to feel completely secondary to adipose adnexa nontender patient unable to really well produce a Kegel. When she does she tenses her abdominal muscles and the diastasis bulges out. General: Yes bladder normal to palpation External Female Exam: normal external appearance and normal appearance of the urethra Speculum Exam - Vagina: normal appearance of the vagina, normal palpation and normal vaginal discharge Speculum Exam - Cervix: normal appearance of the cervix, normal palpation and nontender Bimanual exam- vagina & uterus: normal bimanual exam, normal palpation, uterine size normal, bladder normal to palpation, consistency normal, normal palpation, uterine mobility normal, uterine shape normal, No Cervical tenderness present, non-tender and no cervical motion tenderness Bimanual Exam- Adnexa, other: normal adnexae, no masses, normal and No adnexal tenderness Neuro General: patient oriented x3 Results Reviewed Results Reviewed: ge/Sex: 38/F Attending: Reece Waddell MD : 1985 Submitted by: Reece Waddell MD Copies to: Emile Bradley MD MR #: [id number] Status: DEP REF Collected: 10/24/23 Location: [facility] Received: 10/24/23 Diagnosis Endometrium, biopsy: Benign endometrium with extensive breakdown and pseudodecidual change consistent with exogenous progestin; no atypia or hyperplasia identified. Clinical History AUB Microscopic Description Microscopic sections reviewed. Material Received EMB Gross Description Received in formalin labeled ?EMB? is a 1.8 x 1.5 x 0.5 cm aggregate of multiple soft, cano-pink irregular tissue fragments with scant mucus and blood, submitted in toto in a cassette labeled A. CEDS Copies To Emile Bradley MD [address] [place] [address] Reece Waddell MD [address] [place], [place] [address]Rosetta Donahue [address] [place] [address] NOTE: Unless otherwise stated, all tissue is formalin-fixed and paraffin-embedded. Some or all of the immunohistochemical tests reported herein may have been developed and their performance characteristics determined by [facility]. They have not been cleared or approved by the U.S. Food and Drug Administration (FDA). However, the FDA has determined that such clearance or approval is not necessary. This laboratory is certified under the Clinical Laboratory Improvement Amendments of 1988 (CLIA) as qualified to perform high complexity clinical laboratory testing. Electronically Signed By: Manuel Schmidt MD 10/26/23 8988 Patient: Emile Sheikh I Age/Sex: 38/F MR#: [id number] Page 1 of 1 e: Emile Sheikh I Age/Sex: 37/F Attending: Chelsi Orta CNM : 1985 Submitted by: Chelsi Orta CNM Copies to: Emile Bradley MD MR #: [id number] Status: DEP REF Collected: 02/21/23 Location: [facility] Received: 02/22/23 Interpretation Satisfactory for evaluation. Negative for intraepithelial lesion or malignancy. HPV mRNA E6/E7: NOT DETECTED This assay detects E6/E7 viral messenger RNA (mRNA) from 14 high-risk HPV types (16, 18, 31, 33, 35, 39, 45, 51, 52, 56, 58, 59, 66, 68) HPV testing performed by [facility], [place], [place]. See reference laboratory pion of the EMR for entire report. Clinical Information LMP: 02/14/23 Previous PAP test: 12/08/21, WNL Material Received ThinPrep-Cervical Copies To Emile Bradley MD [address] [place] [address] Chelsi Orta CNM [address] [place] [address] [place] [address] Electronically Signed By: IVA Bullard (ASCP) 03/15/23 1343 The Pap Test is a screening procedure with the inherent possibility of both false negative and false positive results. Results should be interpreted in the context of historic and current clinical findings. Reliability of the Pap Test is enhanced by performing the test on a regular repetitive basis. Patient: Emile Sheikh I Age/Sex: 37/F MR#: [id number] Page 1 of 1 Name: Emile Sheikh Age/Sex: 35/F Attending: Reece Waddell MD : 1985 Submitted by: Reece Waddell MD Copies to: EMILE BRADLEY MD MR #: [id number] Status: DEP REF Collected: 12/29/20 Location: [facility] Received: 12/29/20 Diagnosis A. Endocervix, curettage: Fragments of endocervical mucosa and squamous epithelium within normal limits; mucoinflammatory material; no atypia seen. B. Cervix, 1 o'clock, biopsy: - Squamous epithelium within normal limits; no atypia seen. - No endocervical epithelium seen. C. Cervix, 12 o'clock, biopsy: Mildly inflamed cervical transformation zone mucosa with reactive changes; no atypia seen. D. Cervix, 5 o'clock, biopsy: Mildly inflamed cervical transformation zone mucosa with reactive changes; no atypia seen. COMMENT: The findings are concordant with the patient's recent Pap/cytology specimen ([id number]; ASCUS with positive HPV) - slide reviewed. Clinical History ASCUS, HPV+ Microscopic Description A-D. Microscopic sections reviewed. Material Received A: ECC B: Cx bx at 1 o'clock C: Cx bx at 12 o'clock D: Cx bx at 5 o'clock Gross Description Received in four parts. Part A: Received in formalin labeled ECC is a 2.0 x 2.0 x 0.45 cm. aggregate of mucus and blood with multiple delicate threads of red-maroon tissue. The specimen is submitted in toto in a single cassette labeled A. Part B: Received in formalin labeled Cx bx @ 1 o'clock is a 0.3 cm. in greatest dimension, glistening, semitranslucent, thin and delicate shard of mucosa versus mucus, which is submitted in toto in a single Patient: Emile Sheikh Age/Sex: 35/F MR#: [id number] Page 1 of 2 Surgical Pathology [id number] cassette labeled B. Part C: Received in formalin labeled Cx bx @ 12 o'clock is a 0.3 cm. in greatest dimension, glistening, semitranslucent, rubbery, anna, white- pink, irregular fragment of mucosa with scant clear tenacious mucus, which is submitted in toto in a single cassette labeled C. Part D: Received in formalin liabeled Cx bx @ 5 o'clock is a 0.3 cm. in greatest dimension, glistening, semitranslucent, anna-white, wedge-shaped fragment of mucosa, which is submitted in toto in a single cassette labeled D. CEDS Copies To EMILE BRADLEY MD [address] [place] [id number] Reece Waddell MD [address] [place] [address] Dr. Donahue [address] [place] [address] NOTE: Some or all of the immunohistochemical tests reported herein may have been developed and their performance characteristics determined by [facility]. They have not been cleared or approved by the U.S. Food and Drug Administration (FDA). However, the FDA has determined that such clearance or approval is not necessary. This laboratory is certified under the Clinical Laboratory Improvement Amendments of 1988 (CLIA) as qualified to perform high complexity clinical laboratory testing. Electronically Signed By: Manuel Schmidt MD 12/30/20 8137 Patient: Emile Sheikh Age/Sex: 35/F MR#: [id number] Assessment & Plan Assessment & Plan (1) Prediabetes: Comment: and hx gdm, per pt description,- seeing pcc w plan for wt loss, etc Code(s): R73.03 - Prediabetes Category: Medical (2) History of umbilical hernia repair: Onset Date: 05/13/19 Comment: Rene Glez MD Code(s): Z98.890 - Other specified postprocedural states; Z87.19 - Personal history of other diseases of the digestive system Category: Surgical (3) Abnormal uterine bleeding: Comment: On Mirena IUD, patient also had negative endometrial biopsy with Dr. Waddell, then Mirena removed, Code(s): N93.9 - Abnormal uterine and vaginal bleeding, unspecified Category: Medical (4) ASCUS with positive high risk HPV: Comment: neg bx, ecc, 2020 Category: Medical (5) Diastasis recti: Comment: Very obvious 02/21/2023., and 2023, will place PT referral has already seen surgeons, w abd repair Code(s): M62.08 - Separation of muscle (nontraumatic), other site Category: Medical (6) Pelvic floor weakness: Code(s): N81.89 - Other female genital prolapse Category: Medical Plan -----Discussed in this visit the following: healthy balanced diet, regular and consistent exercise, getting recommended health screens, doing the best she can for her particular health concerns, kegel exercises, pap smear screening and followup recommendations, mammography screening and SBE, normal changes in cycles in her life stage--- . Reviewed the recent records her history of abnormal Pap in 2020 followed by biopsy and negative Paps in 2021 in 2022. Pap not done today as not indicated. Also patient had endometrial biopsy with [facility] this year. After some discussion patient desired to have the Mirena removed to see if it would affect her weight loss at her request the Mirena was removed in January of this year. Patient states she has had 1 normal periods since then and she is happy about that she has not really had much success with weight loss yet she has not really started exercising. She will be seeing her primary in 3 months reviewed that diet and exercise is important she also will be discussing other modalities that might be offered to her. Patient states that was told to speak to gynecology about the diastasis however it is been long noted and she has also seen surgeons for this. She would very weak tone with Kegel exercise and instead her diastasis popped out so I am going to place a PT referral for her. If it helps that would be good and if not she could further discuss this with her primary care provider I wished her luck trying to lose weight discussed condoms 100% for control at this point since she wishes to be with a method that is more reliable. She declined any testing for STIs or infection. Orders: Orders PT Evaluation and Treatment Today M62.08 - Separation of muscle (nontraumatic), other site, N81.89 - Other female genital prolapse, Z87.19 - Personal history of other diseases of the digestive system, Z98.890 - Other specified postprocedural states Referrals Pelvic Chiropractor Sole Practitioner Referral M62.08 - Separation of muscle (nontraumatic), other site, M62.89 - Other specified disorders of muscle, N81.89 - Other female genital prolapse, Z87.19 - Personal history of other diseases of the digestive system, Z98.890 - Other specified postprocedural states Coding Level of Care Code Est Pt Prev Care 40-64y(52769) Diagnoses Prediabetes R73.03 History of umbilical hernia repair Z98.890; Z87.19 Abnormal uterine bleeding N93.9 ASCUS with positive high risk HPV Diastasis recti M62.08 Pelvic floor weakness N81.89
== END 2024-02-26 13:03 | disposition home or self-care (01) ==
LOC: HO.HWSM 11:21
PROVIDERS: PCP Internal Medicine; Visit Provider Advanced Practice Midwife
DX: Z01.419 Encounter for gynecological examination (general) (routine) without abnormal findings (principal); R73.03 Prediabetes; Z87.19 Personal history of other diseases of the digestive system; N93.9 Abnormal uterine and vaginal bleeding, unspecified; M62.08 Separation of muscle (nontraumatic), other site; N81.89 Other female genital prolapse; Z98.890 Other specified postprocedural states
CPT/HCPCS: 99395

== ENCOUNTER → 2024-02-26 11:21 | Outpatient (BNVA) | payer MEDICAID, SELFPAY | PROVIDERS: PCP Internal Medicine; Visit Provider Advanced Practice Midwife | DX: N93.9 Abnormal uterine and vaginal bleeding, unspecified (principal); N81.89 Other female genital prolapse; M62.08 Separation of muscle (nontraumatic), other site; R73.03 Prediabetes; Z87.19 Personal history of other diseases of the digestive system | CPT/HCPCS: 99395 ==

== ENCOUNTER 2024-04-22 08:45 | Outpatient (AMB) | payer MEDICAID, SELFPAY ==
--- NOTE | 2024-04-22 09:31 | MHC.OFFVIS ---
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 Pt was previously seen by our previous colleague Landy Beckett NP. Pt denies any significant interval medical history changes. Since the last sleep study, pt underwnet f/u HST which showed severe sleep apnea w/ AHI 65/hr and O2 naidr 63%. At that time, pt was advised to undergo in-lab PAP titration study, however pt never had this f/u PAP titration study done. She did have a PAP titration study in December 2021 which showed CPAP at 11 cmH2O optimized pt's KELL and nocturnal hypoxemia. However, unfortunately, pt never had f/u or was started on CPAP. She states she is motivated to start CPAP tx. She continues to have snoring, excessive daytime sleepiness. [facility] Medical History (Updated 04/28/24 @ 22:15 by STEPHANIE Flores) HTN (hypertension) Anemia History of hypothyroidism Hx of sleep apnea Diastasis recti Depression Asthma GERD (gastroesophageal reflux disease) Surgical History Hx of section History of umbilical hernia repair (05/13/19) Family History Father No problems noted. Mother HTN (hypertension) Asthma Hyperthyroidism Diabetes Paternal Aunt Breast cancer Social History Household Members: Spouse and Children Housing: Apartment Alcohol intake: former Patient Tobacco Use Status: Never used Tobacco Sexual orientation: Straight/Heterosexual Gender identity: Female Female Reproductive History Menstrual Age of Menarche: 13 Review of Systems Const All systems reviewed & are unremarkable except as noted in HPI and below Physical Exam Vital Signs: BMI result Body Mass Index 38.0 Const General: no acute distress Orientation/consciousness: patient oriented x3 HEENT Other: Mallampati stage 4 Resp Effort & Inspection: normal respiratory effort and able to speak in complete sentences Auscultation: clear to auscultation bilaterally Neuro General: patient oriented x3 and moves all extremities Cranial nerves: Yes CN's II-XII intact bilaterally Gait exam (Neuro): Normal gait present Psych Mental Status: mental status grossly normal Speech and movement: Clear speech present Attitude: cooperative Assessment & Plan Assessment & Plan (1) KELL (obstructive sleep apnea): Comment: Severe degree of sleep apnea. The AHI was 65/hr and oxygen yakelin was 63%. Never started on PAP tx. Code(s): G47.33 - Obstructive sleep apnea (adult) (pediatric) Category: Medical (2) Excessive daytime sleepiness: Comment: ESS 15 Code(s): G47.19 - Other hypersomnia Category: Medical Plan Pt is advised to undergo f/u HST to assess status of sleep apnea to re-qualify pt for CPAP. In the meantime, will initiate order for CPAP at 11 cmH2O to be used nightly > 4 hrs or whenever sleeping. Clean and change PAP supplies regularly. Orders: Orders RT home sleep study 04/22/24 G47.33 - Obstructive sleep apnea (adult) (pediatric) Coding Level of Care Code Est Pt Level 3 (00312) Diagnoses KELL (obstructive sleep apnea) G47.33 Excessive daytime sleepiness G47.19
[2024-04-22 09:48] VITALS: BMI 38.0
== END 2024-04-22 10:39 | disposition home or self-care (01) ==
PROVIDERS: PCP Internal Medicine; Visit Provider Nurse Practitioner Family
DX: G47.33 Obstructive sleep apnea (adult) (pediatric) (principal); G47.19 Other hypersomnia
CPT/HCPCS: 99213

== ENCOUNTER → 2024-04-22 08:45 | Outpatient (BNVA) | payer MEDICAID, SELFPAY | PROVIDERS: PCP Internal Medicine; Visit Provider Nurse Practitioner Family | DX: G47.33 Obstructive sleep apnea (adult) (pediatric) (principal); G47.19 Other hypersomnia | CPT/HCPCS: 99212 ==

== ENCOUNTER 2024-05-21 13:07 | Outpatient (REF) | payer MEDICAID, SELFPAY ==
[2024-05-21 17:16] LABS: TSH reflex Free T4 1.92 uIU/mL (0.32-4.0)
== END 2024-05-21 13:08 | disposition home or self-care (01) ==
LOC: HO.HHCL 13:07
PROVIDERS: Visit Provider Internal Medicine
DX: E03.9 Hypothyroidism, unspecified (principal)
CPT/HCPCS: 36415; 84443

== ENCOUNTER 2024-05-29 14:03 | Outpatient (AMB) | payer MEDICAID, SELFPAY ==
--- NOTE | 2024-05-29 14:18 | MHC.OFFVIS ---
Vital Signs 05/29/24 14:19 Height 4 ft 11 in Weight 188 lb BMI 38.0 BP 116/68 Intake Visit Reasons: Pelvic Pain Patient Resource Specialist Services: Patient Resource Specialist Present Information Interpreted: clinical only Web Applications Administrator: Web Applications Administrator Present Allergies latex [LATEX] Allergy (Intermediate, Verified 05/29/24 14:19) HANDS SWELL Medication List - Last Reconciled 05/29/24 by Chelsi Orta CNM albuterol sulfate 90 mcg/actuation (ProAir HFA) 0 mcg inhalation fenofibrate micronized 43 mg PO QAM ibuprofen 800 mg PO Q8H levothyroxine 137 mcg PO QAM Is last menstrual period known: Yes Last menstrual period: 05/19/24 HPI HPI Pelvic Pain: Details: Patient states she is here today to discuss taking her uterus out could she wants it out because her periods are heavy and she loses a lot of blood in it makes her anemic and she is tired of it she had a Mirena in the past and she felt like it made her fat and she does not want that again she requested that Dr. Waddell remove it and he removed it in January of this year. She has a history of abnormal Paps and she had irregular bleeding and she had an endometrial biopsy with cervical biopsies last year with Dr. Waddell. She has a history of ASCUS with positive HPV. She has 4 children she does not want anymore. she is currently using condoms for control. She also gets pain in her right ovary about a week after her period ends. She says I told her her muscles are weak but I did not teach her about Kegel's. That I placed February but she says nobody called her for pelvic floor PT. Says she has pre diabetes sometimes her sugars are good sometimes high she has a machine at home to check. She says she thinks they are okay she will go home today after this visit. She says she has an appointment tomorrow with 1 of the surgeons to talk about her umbilical hernia she has already had surgery on it in 2019. She wants to lose weight but she is waiting on a referral for bariatric surgery referral as well. She wants her periods to go way she does not want to have anymore children. She thought the Mirena was making her fat but she has actually gained weight since the Mirena was removed January. She thought she was bleeding so much with the periods that she was anemic she is not anemic. I do not see any recent blood sugars her chart. Previous ones were elevated. PFSH Medical History HTN (hypertension) Anemia History of hypothyroidism Hx of sleep apnea Diastasis recti Depression Asthma GERD (gastroesophageal reflux disease) Surgical History Hx of section History of umbilical hernia repair (05/13/19) Family History Father No problems noted. Mother HTN (hypertension) Asthma Hyperthyroidism Diabetes Paternal Aunt Breast cancer Social History Household Members: Spouse and Children Housing: Apartment Alcohol intake: former Patient Tobacco Use Status: Never used Tobacco Sexual orientation: Straight/Heterosexual Gender identity: Female Female Reproductive History Menstrual Age of Menarche: 13 Duration of menses: 3-5 days Date of last menstrual period: 05/19/24 control method: none Total pregnancies: 4 Full term: 4 Date of last pap smear: 02/22/23 (negative) Physical Exam Vital Signs: Last Vital Signs BP 116/68 05/29/24 14:19 BMI result Body Mass Index 38.0 Results Reviewed Results Reviewed: [address] [address] Ultrasound Report Signed Patient: Sarah Sheikh I MR#: [id number] : 1985 Acct:[id number] Age/Sex: 38 / F ADM Date: 10/06/23 Loc: HO.US Attending Dr: Reece Waddell MD Ordering Physician: Reece Waddell MD Date of Service: 10/06/23 Procedure(s): US pelvic and transvaginal Accession Number(s): [id number] cc: Sarah Bradley MD; Reece Waddell MD~ EXAMINATION: US PELVIS CLINICAL INFORMATION: Abnormal uterine and vaginal bleeding. COMPARISON: Obstetrical ultrasound 12/06/2021. TECHNIQUE: Ultrasound of the pelvis is performed using both transabdominal and transvaginal transducers along with Doppler. Transvaginal imaging is performed due to inadequate visualization transabdominally. FINDINGS: Uterus: The uterus is anteverted and measures 9.5 x 5.4 x 5.9 cm. The double wall endometrial thickness is 0.7 cm. IUD appears appropriately positioned. The uterus is smooth in contour and has normal myometrial echogenicity. No visible fibroid. Adnexa: The ovaries appear normal. US/US pelvic and transvaginal IMPRESSION: IUD appears in appropriate position. Endometrial thickness 0.7 cm. No visible uterine or endometrial abnormality. Dictated By: Edmond Pratt MD Signed By: <Electronically signed by Edmond Pratt MD in OV> 10/09/23 1638 DD/ 1225 Name: Sarah Sheikh I Age/Sex: 38/F Attending: Reece Waddell MD : 1985 Submitted by: Reece Waddell MD Copies to: Sarah Bradley MD MR #: [id number] Status: DEP REF Collected: 10/24/23 Location: [facility] Received: 10/24/23 Diagnosis Endometrium, biopsy: Benign endometrium with extensive breakdown and pseudodecidual change consistent with exogenous progestin; no atypia or hyperplasia identified. Clinical History AUB Microscopic Description Microscopic sections reviewed. Material Received EMB Gross Description Received in formalin labeled ?EMB? is a 1.8 x 1.5 x 0.5 cm aggregate of multiple soft, cano-pink irregular tissue fragments with scant mucus and blood, submitted in toto in a cassette labeled A. CEDS Copies To Sarah Bradley MD [address] [place] [address] Reece Waddell MD [address] [place] [address] Dr. Donahue [address] [place] [address] NOTE: Unless otherwise stated, all tissue is formalin-fixed and paraffin-embedded. Some or all of the immunohistochemical tests reported herein may have been developed and their performance characteristics determined by [facility]. They have not been cleared or approved by the U.S. Food and Drug Administration (FDA). However, the FDA has determined that such clearance or approval is not necessary. This laboratory is certified under the Clinical Laboratory Improvement Amendments of 1988 (CLIA) as qualified to perform high complexity clinical laboratory testing. Electronically Signed By: Manuel Schmidt MD 10/26/23 1063 Patient: Sarah Sheikh I Age/Sex: 38/F MR#: [id number] Page 1 of 1 Name: Sarah Sheikh I Age/Sex: 37/F Attending: Chelsi Orta CNM : 1985 Submitted by: Chelsi Orta CNM Copies to: Sarah Bradley MD MR #: [id number] Status: DEP REF Collected: 02/21/23 Location: [facility] Received: 02/22/23 Interpretation Satisfactory for evaluation. Negative for intraepithelial lesion or malignancy. HPV mRNA E6/E7: NOT DETECTED This assay detects E6/E7 viral messenger RNA (mRNA) from 14 high-risk HPV types (16, 18, 31, 33, 35, 39, 45, 51, 52, 56, 58, 59, 66, 68) HPV testing performed by [facility], [place], [place]. See reference laboratory pion of the EMR for entire report. Clinical Information LMP: 02/14/23 Previous PAP test: 12/08/21, WNL Material Received ThinPrep-Cervical Copies To Sarah Bradley MD [address] [place] [id number] Chelsi Orta CNM [address] [place] [address] Dr. Donahue [address] [place] [id number] Electronically Signed By: IVA Bullard (ASCP) 03/15/23 1341 The Pap Test is a screening procedure with the inherent possibility of both false negative and false positive results. Results should be interpreted in the context of historic and current clinical findings. Reliability of the Pap Test is enhanced by performing the test on a regular repetitive basis. Patient: Sarah Sheikh I Age/Sex: 37/F MR#: [id number] Page 1 of 1. Name: Sarah Sheikh I Age/Sex: 36/F Attending: Laine Zamora CNM : 1985 Submitted by: Laine Zamora CNM Copies to: Sarah Bradley MD MR #: [id number] Status: DEP REF Collected: 12/08/21 Location: [facility] Received: 12/09/21 Interpretation Satisfactory for evaluation. Mild inflammation. Coccobacilli consistent with shift in vaginal agustin. Negative for intraepithelial lesion or malignancy. HPV mRNA E6/E7: NOT DETECTED This assay detects E6/E7 viral messenger RNA (mRNA) from 14 high-risk HPV types (16, 18, 31, 33, 35, 39, 45, 51, 52, 56, 58, 59, 66, 68) HPV testing performed by [facility], [place], [place]. See reference laboratory pion of the EMR for entire report. Clinical Information LMP: 10/25/21 Previous PAP test: 2020, ASCUS HPV+ Material Received ThinPrep-Cervical Copies To Sarah Bradley MD [address] [place], [place] [id number] Laine Zamora CNM [address] [place] [address] [place] [address] Electronically Signed By: IVA Bullard (ASCP) 12/23/21 1046 The Pap Test is a screening procedure with the inherent possibility of both false negative and false positive results. Results should be interpreted in the context of historic and current clinical findings. Reliability of the Pap Test is enhanced by performing the test on a regular repetitive basis. Patient: Sarah Sheikh I Age/Sex: 36/F MR#: [id number] Page 1 of 1. Name: Sarah Sheikh I Age/Sex: 38/F : 1985 Unit#: [id number] Attend Dr: Reece Waddell MD Re09/12/23 Status: DEP [facility] Disch: SPEC : [id number] IRIS: 09/12/23 STATUS: COMP REQ : [id number] RECD: 09/12/[address] [facility] [address]: Reece Waddell MD COMP: 09/12/23 ENTERED: 09/12/23 [facility] DR: Sarah Bradley MD ORDERED: CBC No Diff Test Result Flag Reference WBC 7.8 4.8-10.8 X10*3/uL RBC 4.44 4.20-5.50 X10*6/uL HGB 12.4 12.0-16.0 g/dl HCT 38.4 37.0-47.0 % MCV 86.5 80.0-98.0 fL MCH 27.9 27.0-33.0 pg MCHC 32.3 31.0-35.0 g/dl RDW 13.3 11.0-16.0 % PLT 265 160-400 X10*3/uL MPV 10.9 9.4-12.3 fL NRBC Pct Auto 0.0 0.0-0.2 /100WBC NRBC Abs Auto 0.000 0.0-0.012 X10*3/uL Assessment & Plan Assessment & Plan (1) Family planning: Code(s): Z30.09 - Encounter for other general counseling and advice on contraception Category: Social Hx (2) Prediabetes: Comment: and hx gdm, per pt description,- seeing pcc w plan for wt loss, etc Code(s): R73.03 - Prediabetes Category: Medical (3) Pelvic floor weakness: Code(s): N81.89 - Other female genital prolapse Category: Medical Plan Patient states she is here today to discuss taking her uterus out could she wants it out because her periods are heavy and she loses a lot of blood in it makes her anemic and she is tired of it she had a Mirena in the past and she felt like it made her fat and she does not want that again she requested that Dr. Waddell remove it and he removed it in January of this year. She has a history of abnormal Paps and she had irregular bleeding and she had an endometrial biopsy with cervical biopsies last year with Dr. Waddell. She has a history of ASCUS with positive HPV. She has 4 children she does not want anymore. she is currently using condoms for control. She also gets pain in her right ovary about a week after her period ends. She says I told her her muscles are weak but I did not teach her about Kegel's. That I placed February but she says nobody called her for pelvic floor PT. Says she has pre diabetes sometimes her sugars are good sometimes high she has a machine at home to check. She says she thinks they are okay she will go home today after this visit. She says she has an appointment tomorrow with 1 of the surgeons to talk about her umbilical hernia she has already had surgery on it in 2019. She wants to lose weight but she is waiting on a referral for bariatric surgery referral as well. She wants her periods to go way she does not want to have anymore children. She thought the Mirena was making her fat but she has actually gained weight since the Mirena was removed January. She thought she was bleeding so much with the periods that she was anemic she is not anemic. I do not see any recent blood sugars her chart. Previous ones were elevated. I reviewed with the patient her history of abnormal Paps the previous endometrial and cervical biopsies done by Dr. Waddell this past year discussed possible use of a Mirena to help with heavy menses and control and given that she has so many other pressing health concerns any consideration of any kind of surgery should be coordinated with all of the doctors that she is concerned with, question bariatric question general surgeon with hernia question gynecologic if she had her tubes tied etc.. Discussed that reconsideration of the Mirwaldemar may be her best choice. She wants to talk about taking everything out I told her I am not a surgeon and she needs to make an appointment rn dermatology to discuss this but her pre diabetes or diabetes ease and the obesity may take precedence health issues needs to be attended to I did resend the physical therapy referral for pelvic floor PT and I also gave her a copy of [facility] instructions in Sami she has not appointment with General surgery tomorrow and she is going to check her blood sugars at home tonight. Coding Level of Care Code Est Pt Level 3 (50176) Complex EM visit Add On G2211 Diagnoses Family planning Z30.09 Prediabetes R73.03 Pelvic floor weakness N81.89 Time Spent (min) 45 Comment 100% [id number] discussing all of patient's various health considerations helping her pl
[2024-05-29 14:19] VITALS: BP 116/68; BMI 38.0
== END 2024-05-29 15:30 | disposition home or self-care (01) ==
PROVIDERS: PCP Internal Medicine; Visit Provider Advanced Practice Midwife
DX: Z30.09 Encounter for other general counseling and advice on contraception (principal); R73.03 Prediabetes; N81.89 Other female genital prolapse
CPT/HCPCS: 99213

== ENCOUNTER → 2024-05-29 14:03 | Outpatient (BNVA) | payer MEDICAID, SELFPAY | PROVIDERS: PCP Internal Medicine; Visit Provider Advanced Practice Midwife | DX: Z30.09 Encounter for other general counseling and advice on contraception (principal); R73.03 Prediabetes; N81.89 Other female genital prolapse | CPT/HCPCS: 99212 ==

== ENCOUNTER 2024-06-13 08:39 | Outpatient (AMB) | payer MEDICAID, SELFPAY ==
--- NOTE | 2024-06-13 08:41 | A.OFFVIS_ITS ---
Vital Signs 06/13/24 08:48 Height 4 ft 11 in Weight 192 lb BMI 38.8 BP 154/84 H Blood Pressure Location Rt brachial Position Sitting Pulse 83 Intake Visit Reasons: Umbilical hernia Intake Note: This patient was referred by for umbilical hernia assessment. Hx of hernia repaired by Dr. Glez in 2019. Pt c/o; pain in umbilical area. Unable to wear certain jeans. Nausea and dizziness at times. Hospital Laboratory Technician Required: Yes Hospital Laboratory Technician Services: Hospital Laboratory Technician Present Hospital Laboratory Technician Name: Veronica TRISTAN Accompanied by: Self / Same As Patient Allergies latex [LATEX] Allergy (Intermediate, Verified 06/13/24 08:46) HANDS SWELL Medication List - Last Reconciled 06/13/24 by Osbaldo Herron MD albuterol sulfate 90 mcg/actuation (ProAir HFA) 0 mcg inhalation betamethasone valerate 0.1% topical diphenhydramine HCl (Banophen) mg PO Q6H PRN escitalopram oxalate 10 mg PO QAM fenofibrate micronized 43 mg PO QAM ibuprofen 800 mg PO Q8H levothyroxine 137 mcg PO QAM loratadine 10 mg PO DAILY PRN metformin 500 mg PO BID nifedipine ER 60 mg PO QAM pravastatin 40 mg PO QAM sertraline 50 mg PO QAM trazodone 100 mg PO BEDTIME PRN HPI HPI Umbilical hernia: Details: [age] year old female referred for a ventral hernia. She has noticed this lump above her umbilicus for about 2 months now. She says this is becoming tender. She had history of repair of a ventral hernia in 2019 without mesh. This was a 5 mm hernia at that time. She otherwise denies GI complaints. She admits to hypertension thyroid disease. She is also morbidly obese and says that she is supposed to see an molecular biology director. [facility] Medical History (Updated 06/13/24 @ 09:02 by Osbaldo Herron MD) Supraumbilical hernia HTN (hypertension) Anemia History of hypothyroidism Hx of sleep apnea Diastasis recti Depression Asthma GERD (gastroesophageal reflux disease) Surgical History Hx of section History of umbilical hernia repair (05/13/19) Family History Father No problems noted. Mother HTN (hypertension) Asthma Hyperthyroidism Diabetes Paternal Aunt Breast cancer Social History Household Members: Spouse and Children Housing: Apartment Alcohol intake: former Patient Tobacco Use Status: Never used Tobacco Sexual orientation: Straight/Heterosexual Gender identity: Female Female Reproductive History Menstrual Age of Menarche: 13 Review of Systems Const Denies chills and Denies fever(s) Card Denies chest pain, Denies dyspnea and Denies dyspnea on exertion Resp Denies cough, Denies dyspnea and Denies dyspnea on exertion GI Denies hematochezia and Denies change in bowel habits Denies hematuria Musc Denies back pain and Denies limited range of motion Neuro Denies focal weakness and Denies convulsions Psych Denies depression and Denies mood swings Physical Exam Vital Signs: Last Vital Signs Pulse 83 06/13/24 08:48 BP 154/84 H 06/13/24 08:48 BMI result Body Mass Index 38.8 Const General: comfortable and no acute distress Orientation/consciousness: patient oriented x3 Neck Neck: Yes no lymphadenopathy Resp Auscultation: clear to auscultation bilaterally Cardio Rhythm: regular rhythm GI Other: Rounded and protuberant, scar on the supraumbilical area with note of a reducible hernia, about 1 cm in size Palpation (GI): Soft to palpation, nontender and no guarding Neuro General: patient oriented x3 Assessment & Plan Assessment & Plan (1) Supraumbilical hernia: Code(s): K43.9 - Ventral hernia without obstruction or gangrene Category: Medical Plan: She has a small supraumbilical hernia as described above. She had a history of hernia repair on the same area without mesh in 2019. This seems to be a recurrence therefore I explained to her the technique of repair with possible mesh. I reviewed the risks including but not limited to bleeding, infection of the common bowel injury, recurrence, as well as the benefits and alternatives. I will order for a CAT scan before her surgery to define the hernia her previous repair. She understands and says she agrees to proceed. Coding Level of Care Code Est Pt Level 3 (08945) Diagnoses Supraumbilical hernia K43.9
[2024-06-13 08:48] VITALS: BP 154/84; PULSE 83; BMI 38.8
== END 2024-06-13 09:04 | disposition home or self-care (01) ==
PROVIDERS: PCP Internal Medicine; Visit Provider Surgery
DX: K43.9 Ventral hernia without obstruction or gangrene (principal)
CPT/HCPCS: 99213

== ENCOUNTER → 2024-06-13 08:39 | Outpatient (BNVA) | payer MEDICAID, SELFPAY | PROVIDERS: PCP Internal Medicine; Visit Provider Surgery | DX: K43.9 Ventral hernia without obstruction or gangrene (principal) | CPT/HCPCS: 99212 ==

== ENCOUNTER 2024-06-14 08:29 | Outpatient (AMB) | payer MEDICAID, SELFPAY ==
[2024-06-14 08:36] VITALS: BP 110/78; PULSE 70; BMI 39.1
--- NOTE | 2024-06-14 08:36 | A.OFFVIS_ITS ---
Vital Signs 06/14/24 08:36 Height 4 ft 11 in Weight 193 lb 12.581 oz BMI 39.1 BP 110/78 Blood Pressure Location Lt brachial Position Sitting Pulse 70 Pulse Source Pulse Oximeter Intake Visit Reasons: Obesity Varnishing Machine Operator Required: Yes Varnishing Machine Operator Language: Booth Manager Services: Varnishing Machine Operator Present Varnishing Machine Operator Name: Avani Information Interpreted: non-clinical & clinical Accompanied by: Self / Same As Patient Allergies latex [LATEX] Allergy (Intermediate, Verified 06/14/24 08:40) HANDS SWELL Medication List - Last Reconciled 06/14/24 by Savannah Handy MD albuterol sulfate 90 mcg/actuation (ProAir HFA) 0 mcg inhalation betamethasone valerate 0.1% topical diphenhydramine HCl (Banophen) mg PO Q6H PRN escitalopram oxalate 10 mg PO QAM fenofibrate micronized 43 mg PO QAM ibuprofen 800 mg PO Q8H levothyroxine 137 mcg PO QAM loratadine 10 mg PO DAILY PRN nifedipine ER 60 mg PO QAM pravastatin 40 mg PO QAM sertraline 50 mg PO QAM trazodone 100 mg PO BEDTIME PRN HPI Comments Details: 39-year-old female coming in today for initial evaluation PCOS and obesity Says she was diagnosed with PCOS 4 years ago She was reporting heavy irregular menstrual bleeding with control , she on implant plus progesterone injections tried around that time Currently using condoms IUD taken out in December 2023 Mirena because she felt she was gaining weight on the Mirena. Though after taking out the IUD she has not lost any weight. She is not currently planning any . Currently sexually active with , uses condoms 2 years . pregnancies 4 1 vaginal 3 ceaserian sections Oldest child 16 years Youngest 2 months old 2 youngest kids are from current marriage LMP: 19 of May Regular periods when she is not on any control Follows with business intern here HAs history of ASCUS BMI 39 .1 kg/m2 Weight currenltt 193 lbs is highest it has ever been Used to weigh 135 lbs up until her third , gained weight during , hasnt lost aftet that pregancy, she showed me her old pictures when she was weighing much less. She is interested in weight loss surgery Meds currently Stopped metformin 500 mg BID stopped one month ago due to well controlled sugars? Was on it since 2022 She reports did not require any insulin during gestational diabetes. She was on oral medications. No acne only few chin hair , not excessive No other hirsutism Feels like she does have hair loss diffusely not particulary any pattern HAs hypothyroidism, biochemically euthyroid per recent labs No easy bruising, no proximal muscle weakness, no abdominal striae. No facial plethora. No change in ring size or shoe size. Has a history of hypothyroidism, currently on levothyroxine 137 mcg daily. Umbilical Hernia surgery 2019, now with recurrence and needs repair, seeing gen surgery Because of hernia recurrence she has not been exercising recently gets abd pain OTherwise was walking 4 times a week for 30 mins Diet: Lots of fruits and vegetables and salad Uses air fryer Eats out only once a week No sugary drinks 3 meals a day , no snacks Breakfast: oatmeal or scrambled eggs with salad Lunch: Fish with some salad, Tuna fish with crackers Dinner: about the same as lunch , fried plantains , fruit smoothies Not using any calorie counting apps currently Low libido since 4 months becuase of the way she feels about her body Comorbids KELL on CPAP HTN on nifedipine well controlled Has history of gestational DM , not on any meds currently HLD on pravastatin 40 mg daily No history of PR or stroke Social history Never smoker No alcohol use No drug use currently 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 Pulmonary: No SOB GI: Has abdominal pain intermittently when she moves due to the recurrence of umbilical hernia : no burning micturition, dysuria or increase in urinary frequency Physical exam General: sitting comfortably in no acute distress, no excessive hair noted on face, abdomen HEENT: normocephalic/atraumatic,, moist oral mucosa Neck: supple, symmetrical, no thyromegaly , does have dorsocervical or supraclavicular fat pads Cardiac: normal heart sounds Pulm: normal breath sounds B/L Abd: not distended, no tenderness, umbilical hernia noted, no abnormal purple striae Extremities: no edema, no signs of myxedema Neuro: AAO x3, Speech: normal, no facial droop, moving all 4 extremities PFSH Medical History (Updated 06/14/24 @ 09:32 by Savannah Handy MD) Obesity (BMI 30-39.9) Supraumbilical hernia HTN (hypertension) Anemia History of hypothyroidism Hx of sleep apnea Diastasis recti Depression Asthma GERD (gastroesophageal reflux disease) Surgical History Hx of section History of umbilical hernia repair (05/13/19) Family History Father No problems noted. Mother HTN (hypertension) Asthma Hyperthyroidism Diabetes Paternal Aunt Breast cancer Social History Household Members: Spouse and Children Housing: Apartment Alcohol intake: former Patient Tobacco Use Status: Never used Tobacco Sexual orientation: Straight/Heterosexual Gender identity: Female Female Reproductive History Menstrual Age of Menarche: 13 Physical Exam Vital Signs: Last Vital Signs Pulse 70 06/14/24 08:36 BP 110/78 06/14/24 08:36 BMI result Body Mass Index 39.1 Results Reviewed Results Reviewed: Laboratory Tests 06/22/18 03/18/20 03/23/20 10:38 12:57 11:01 Fasting Glucose Glucose 1 Hour Glucose 2 Hour Glucose 3 Hour Hemoglobin A1c 5.3 Glucose 1 Hr 50 gm 162 H 155 H AST ALT Triglycerides 172 Cholesterol 232 LDL Cholesterol, Calc 155 HDL Cholesterol 43 TSH Free T4 Prolactin 03/24/20 03/24/20 03/24/20 08:50 09:55 10:55 Fasting Glucose 92 Glucose 1 Hour 146 Glucose 2 Hour 137 Glucose 3 Hour Hemoglobin A1c Glucose 1 Hr 50 gm AST ALT Triglycerides Cholesterol LDL Cholesterol, Calc HDL Cholesterol TSH Free T4 Prolactin 03/24/20 12/16/21 07/12/23 11:54 00:32 11:03 Fasting Glucose Glucose 1 Hour Glucose 2 Hour Glucose 3 Hour 135 Hemoglobin A1c Glucose 1 Hr 50 gm AST 15 ALT 21 Triglycerides Cholesterol LDL Cholesterol, Calc HDL Cholesterol TSH 6.02 H Free T4 0.84 Prolactin 09/12/23 05/21/24 12:05 13:09 Fasting Glucose Glucose 1 Hour Glucose 2 Hour Glucose 3 Hour Hemoglobin A1c Glucose 1 Hr 50 gm AST ALT Triglycerides Cholesterol LDL Cholesterol, Calc HDL Cholesterol TSH 2.77 1.92 Free T4 Prolactin 7.1 US PELVIS 10/28 CLINICAL INFORMATION: Abnormal uterine and vaginal bleeding. COMPARISON: Obstetrical ultrasound 12/06/2021. TECHNIQUE: Ultrasound of the pelvis is performed using both transabdominal and transvaginal transducers along with Doppler. Transvaginal imaging is performed due to inadequate visualization transabdominally. FINDINGS: Uterus: The uterus is anteverted and measures 9.5 x 5.4 x 5.9 cm. The double wall endometrial thickness is 0.7 cm. IUD appears appropriately positioned. The uterus is smooth in contour and has normal myometrial echogenicity. No visible fibroid. Adnexa: The ovaries appear normal. US/US pelvic and transvaginal IMPRESSION: IUD appears in appropriate position. Endometrial thickness 0.7 cm. No visible uterine or endometrial abnormality. Assessment & Plan Assessment & Plan (1) Obesity (BMI 30-39.9): Code(s): E66.9 - Obesity, unspecified Category: Medical Plan: 39-year-old patient with past medical history significant for hypertension, hyperlipidemia, gestational diabetes mellitus not currently , KELL on CPAP who is here today to establish care for obesity. Referral was made for polycystic ovarian syndrome, however patient has regular periods, no signs of hyperandrogenism and recent pelvic ultrasound from October 2023 showed no polycystic ovaries. She follows with OBGYN regularly, and her major concern to day is obesity. Current BMI 39.1 kg per m2, current weight 193 lb this is the highest she has ever been. Used to be 135 lb, 4-5 years ago. When I reviewed the chart she has gained about 15 lb in the last 4 years. Mostly eating healthy with limited outside food, incorporating more greens and less carbohydrates and fats, however not keeping account of any calorie counting. She currently has a recurrence of her supraumbilical abdominal hernia limiting her activities so she is not exercising. She is following with General surgery and plan is to repair this. She has had 4 pregnancies, not desiring any future pregnancies. She used to be on metformin 500 mg b.i.d. for impaired glucose tolerance but was taken off it in May 2024 due to well-controlled blood sugars. We will screen her for diabetes with a HbA1c, fasting glucose. She is fasting today. We will also check a lipid panel as none done recently she is on pravastatin hyperlipidemia. She also has hypertension. She has a KLEL on CPAP. Given multiple comorbidities and that her BMI is greater than 35 kg m2, she meets criteria for bariatric surgery. She is interested in weight loss surgery. Likely 1st she will need to take care of her abdominal hernia but I will go ahead and place a bariatric surgery referral. Focused on extensive lifestyle modification today with weight loss counseling done. I reviewed with patient the importance of weight loss as it relates to decreasing the risk of diabetes, cardiovascular disease, obstructive sleep apnea,PCOS, arthritis. We reviewed the importance of decreasing total calorie consumption, minimizing fats and carbohydrates. We discussed 500 calorie deficit using the LOSE IT phone application , to aim for 1 lb weight loss per week for the next 12 weeks to aim for 180 lbs which is also around 7 % weight loss We reviewed the plate method. I recommended avoiding eating after 7 PM at night. She was advised to start exercising 30-45 mins a day , Start with 4000 to 5000 steps a day and build up to walking more than 10,000 steps a day. Wait on doing reistance exercises for now given hernia Thinking of other endocrine causes of obesity, she is biochemically euthyroid on levothyroxine 137 mcg daily. No features on exam to suggest hypercortisolism or acromegaly. Plan: -aim for a 1 lb weight loss per week for the next 12 weeks prior to her next follow up to aim for a weight loss 7%/target of 180 -dietary counseling as well as active exercise regimen as planned above -she has no history of thyroid cancer in the family, no history of pancreatitis, no alcohol use, would benefit from a GLP 1 agonist such as Wegovy or Zepbound for weight loss. I will see her back in 12 weeks with the above lifestyle modification advised and see her progress and then we will consider prescribing weight loss medications. If these are not approved by insurance, can consider prescribing Qsymia or Contrave, but her target weight loss is much high and these would be suboptimal. No history of seizure disorder, kidney stones, glaucoma, . HTN is well controlled. -check A1c, lipid panel, BMP -follow up in 12 weeks Plan I spent 45 minutes in reviewing the record, seeing the patient and documenting in the medical record. Orders: Orders 2 Basic Metabolic Panel Today E66.9 - Obesity, unspecified Glucose Random Today E66.9 - Obesity, unspecified Lipid Panel Today E66.9 - Obesity, unspecified Hemoglobin A1c Today E66.9 - Obesity, unspecified Referrals Bariatric Surgery Referral E66.9 - Obesity, unspecified Patient Instructions: Weight loss counselling ? Limit added sugars to less than 25 grams daily. There are 4.2 grams of sugar per teaspoon of sugar. A teaspoon of honey has 6 grams of sugar! Bread also can have more sugar than you think-check labels ? No soda or juices. Drink water, unsweetened iced tea or seltzer ? Limit eating out/take out or prepared meals to twice weekly at most ? Avoid red meat, hot dogs, bustillo and deli meat. Substitute plant protein for animal protein as much as you can. Beans, nuts, tofu, soy milk ? Limit cheese to 1 ounce a few times weekly ? Eat high fiber foods like beans, apples and green veggies, salsa is a great snack with whole grain cracker like Wasa ? Look for the whole grain stamp when choosing bread etc. Aim for 48 grams of whole grains daily. Whole wheat does not equal whole grains! ? Don't keep tempting treats in the house. Go out once in a while for a treat. ? Don't eat anything deep fried or cream based-no sour cream I reviewed with patient the importance of weight loss as it relates to decreasing the risk of diabetes, cardiovascular disease, obstructive sleep apnea,PCOS, arthritis. We reviewed the importance of decreasing total calorie consumption, minimizing fats and carbohydrates. We discussed 500 calorie deficit using the LOSE IT phone application , to aim for 1 lb weight loss per week for the next 12 weeks to aim for 180 lbs which is also around 7 % weight loss We reviewed the plate method. I recommended avoiding eating after 7 PM at night. She was advised to start exercising 30-45 mins a day , Start with 4000 to 5000 steps a day and build up to walking more than 10,000 steps a day. Wait on doing reistance exercises for now given hernia I will see you back in 12 weeks and we will consider starting weight loss medications IN [place] Asesoramiento para bajar de peso ? Limite los az?cares a?adidos a menos de 25 gramos diarios. Hay 4,2 gramos de az?car por cucharadita de az?car. ?Sundar cucharadita de miel tiene 6 gramos de az?car! El navarrete tambi?n puede tener m?s az?car de lo que christelle: revise las etiquetas ? No tome refrescos ni jugos. Zelda agua, t? helado sin az?car o agua carbonatada ? Limite las comidas fuera de casa, para llevar o comidas preparadas a dos veces por semana brandy m?ximo ? Evite la carne carmelita, los perritos calientes, el tocino y los fiambres. Sustituya la prote?na animal por prote?na vegetal tanto brandy pueda. Frijoles, nueces, tofu, leche de soja ? Limite el queso a 1 onza unas cuantas veces por semana ? Coma alimentos ricos en fibra brandy frijoles, manzanas y verduras verdes, la salsa es un excelente refrigerio con galletas integrales brandy Wasa ? Busque el sello de grano integral al elegir navarrete, etc. Trate de consumir 48 gramos de granos integrales por d?a. ?Alba integral no es igual a granos integrales! ? No tenga golosinas tentadoras en la casa. Salga de vez en cuando a darse un gusto. ? No coma nada frito ni a base de crema, ni crema agria. Mir? con la paciente la importancia de la p?rdida de peso en relaci?n con la disminuci?n del riesgo de diabetes, enfermedad cardiovascular, apnea obstructiva del holley?o, s?ndrome de ovario poliqu?stico y artritis. Revisamos la importancia de disminuir el consumo total de calor?as, minimizando las grasas y los carbohidratos. Discutimos el d?ficit de 500 calor?as utilizando la aplicaci?n para tel?fono LOSE IT, para apuntar a sundar p?rdida de peso de 1 lara por semana jesica las pr?ximas 12 semanas hasta llegar a 180 libras, que tambi?n es alrededor del 7 % de p?rdida de peso. Revisamos el m?todo del plato. Recomend? evitar comer despu?s de las 7 p. m. de la noche. Se le recomend? comenzar a hacer ejercicio de 30 a 45 minutos al d?a. Comenzar con 4000 a 5000 pasos al d?a y aumentar hasta caminar m?s de 10 000 pasos al d?a. Espere a hacer ejercicios de resistencia por ahora debido a la hernia. Nos vemos nuevamente en 12 semanas y consideraremos comenzar con medicamentos para bajar de peso. Coding Level of Care Code New Pt Level 4 (59518) Diagnoses Obesity (BMI 30-39.9) E66.9 Time Spent (min) 45
== END 2024-06-14 09:41 | disposition home or self-care (01) ==
PROVIDERS: PCP Internal Medicine; Referring Provider Internal Medicine; Visit Provider Student in an Organized Health Care Education/Training Program
DX: E66.9 Obesity, unspecified (principal)
CPT/HCPCS: 99204

== ENCOUNTER → 2024-06-14 08:29 | Outpatient (BNVA) | payer MEDICAID, SELFPAY | PROVIDERS: PCP Internal Medicine; Visit Provider Student in an Organized Health Care Education/Training Program ==

== ENCOUNTER 2024-06-14 09:44 | Outpatient (REF) | payer MEDICAID, SELFPAY ==
[2024-06-14 11:00] LABS: Estimated Average Glucose 114 mg/dL; Hemoglobin A1C 104.0825 umol/L; Hemoglobin A1c % 5.6 % (<6.0); Total Hemoglobin (HGBA1C) 2756.7418 umol/L
[2024-06-14 11:06] LABS: Anion Gap 10 (12-20); Blood Urea Nitrogen 14 mg/dL (9-16); Carbon Dioxide 26 mmol/L (22-29); Chloride 105 mmol/L (96-108); Cholesterol 173 mg/dL (<200); Estimated Glomerular Filt Rate > 60; Glucose Random 107 mg/dL (60-115); HDL Cholesterol 41 mg/dL (>40); LDL Cholesterol Calculated 111 mg/dL (<100); Potassium 3.8 mmol/L (3.3-5.1); Sodium 137 mmol/L (135-145); Triglycerides 107 mg/dL (<150)
== END 2024-06-14 09:45 | disposition home or self-care (01) ==
LOC: HO.10HDL 09:44
PROVIDERS: Visit Provider Student in an Organized Health Care Education/Training Program
DX: E66.9 Obesity, unspecified (principal)
CPT/HCPCS: 36415; 80048; 80061; 83036; 99202

== ENCOUNTER 2024-08-05 07:47 | Outpatient (REF) | payer MEDICAID, SELFPAY | END 2024-08-05 07:48 | disposition home or self-care (01) | LOC: HO.CT 07:47 | PROVIDERS: PCP Internal Medicine; Visit Provider Surgery | DX: K43.9 Ventral hernia without obstruction or gangrene (principal) | CPT/HCPCS: 74176 ==

== ENCOUNTER → 2024-08-05 07:49 | Outpatient (BNV) | payer MEDICAID, SELFPAY | PROVIDERS: PCP Internal Medicine; Visit Provider Radiology Diagnostic Radiology | DX: K43.9 Ventral hernia without obstruction or gangrene (principal) | CPT/HCPCS: 74176 ==

== ENCOUNTER → 2024-08-13 07:35 | Day surgery (SDC) | payer MEDICAID, SELFPAY ==
[2024-08-09 11:40] VITALS: BMI 38.8
--- NOTE | 2024-08-12 12:56 | HO.ANESPROP2 ---
HPI - Anesthesia Eval Consult details Narrative: 39yo F for Repair Hernia SupraUmbilical Reducible with mesh PMFSH Active Problems Active Problems: All Active Problems Excessive daytime sleepiness (Acute) Pelvic floor weakness (Acute) Encounter for IUD removal (Acute) Abnormal uterine bleeding (Acute) Cervical cancer screening (Acute) Prediabetes (Acute) IUD check up (Acute) Encounter for IUD insertion (Acute) KELL (obstructive sleep apnea) (Acute) Chronic diarrhea (Acute) Mastodynia of left breast (Acute) Abnormal thyroid blood test (Acute) ASCUS with positive high risk HPV (Acute) Left breast lump (Acute) Amenorrhea (Acute) Well woman exam (Acute) Family planning (Acute) Obesity (BMI 30-39.9) (Acute) Supraumbilical hernia (Acute) History of umbilical hernia repair (Acute 05/13/19) HTN (hypertension) (Acute) Diastasis recti (Acute) Past Medical History Medical History (Updated 08/09/24 @ 11:36 by Yu Rose RN) Elevated cholesterol Obesity (BMI 30-39.9) Supraumbilical hernia HTN (hypertension) Anemia History of hypothyroidism Hx of sleep apnea Diastasis recti Depression Asthma GERD (gastroesophageal reflux disease) Family History Family History Father No problems noted. Mother HTN (hypertension) Asthma Hyperthyroidism Diabetes Paternal Aunt Breast cancer Family history of problems with anesthesia: No Surgical History Surgical History Hx of section History of umbilical hernia repair (05/13/19) History of Problems with Anesthesia: No Social History Social History Household Members: Spouse and Children Housing: Apartment Alcohol intake: former Patient Tobacco Use Status: Never used Tobacco Sexual orientation: Straight/Heterosexual Gender identity: Female Meds Allergies Allergy/AdvReac Type Severity Reaction Status Date / Time latex [LATEX] Allergy Intermediate HANDS SWELL Verified 06/14/24 08:40 Home Medications ?Medication ?Instructions ?Recorded ?Confirmed ?Last Taken ?Type albuterol sulfate 90 mcg/actuation 2 puff inhalation Q4H PRN 06/17/21 08/09/24 Unknown History aerosol inhaler (ProAir HFA) Shortness Of Breath Or Wheezing ibuprofen 800 mg tablet 800 mg PO Q8H 06/17/21 08/09/24 Unknown History fenofibrate micronized 43 mg 43 mg PO QAM 02/09/23 08/09/24 Unknown History capsule levothyroxine 137 mcg tablet 137 mcg PO QAM 02/09/23 08/09/24 Unknown History betamethasone valerate 0.1 % topical 06/13/24 06/14/24 Unknown History topical ointment diphenhydramine HCl 25 mg capsule 25 mg PO Q6H PRN itch 06/13/24 08/09/24 Unknown History (Banophen) escitalopram oxalate 10 mg tablet 10 mg PO QAM 06/13/24 08/09/24 Unknown History loratadine 10 mg tablet 10 mg PO DAILY PRN allergies 06/13/24 08/09/24 Unknown History nifedipine 60 mg tablet,extended 60 mg PO QAM 06/13/24 08/09/24 Unknown History release pravastatin 40 mg tablet 40 mg PO QAM 06/13/24 08/09/24 Unknown History sertraline 50 mg tablet 50 mg PO QAM 06/13/24 08/09/24 Unknown History trazodone 100 mg tablet 100 mg PO BEDTIME PRN Insomnia 06/13/24 08/09/24 Unknown History Exam Height,Weight and Vital Signs: Height 4 ft 11 in Weight 87.09 kg Pertinent Lab Results Pertinent Lab Results: Laboratory Tests 09/12/23 06/14/24 12:05 09:50 WBC 7.8 Hgb 12.4 Hct 38.4 Plt Count 265 Sodium 137 Potassium 3.8 Chloride 105 Carbon Dioxide 26 BUN 14 Creatinine 0.69 Assessment and Plan Assessment Anesthesia Assessment: Chart Reviewed Final Anesthetic Review Family History of Problems with Anesthesia: No History of Problems with Anesthesia: No
[2024-08-13 09:22] LABS: UPreg QC Valid YES; Urine Pregnancy NEGATIVE (NEGATIVE)
[2024-08-13 09:34] VITALS: BMI 38.4
[2024-08-13 09:39] VITALS: BP 128/78; PULSE 87; RESP 16; TEMP 36.6; O2SAT 98
[2024-08-13] MEDS: Lactated Ringers 1,000 ML 100 ML IVCONT (10:10)
--- NOTE | 2024-08-13 12:10 | PM.EVENT ---
Event Note Date of Service: 08/13/24 Event Note: The patient was here for a supraumbilical hernia However, I have reviewed her CAT scan which has not been officially read yet This does not show an hernia on the supraumbilical area where she points to There was note of diastasis There is a small defect and the umbilicus that may represent a very small umbilical hernia I explained the above findings to her I told her that the area she was concerned of above the umbilicus did not really have any hernia based on CT scan findings. I explained to her that the defect in the umbilicus was very small She says that she will not go ahead with repair at this time above findings We will cancel the procedure I have instructed the patient to see me in the office Time Spent With Patient Time: Total time managing care of this patient today ____ minutes.
--- NOTE | 2024-08-13 12:14 | PC.NURSE ---
Dr. Herron at bedside to speak with patient regarding procedure. At this time patient no longer needs surgery. Patient informed to call office to schedule follow up, patient aware and agreeable to plan. IV removed and intact. Patient discharged home
== END ==
LOC: HO.SSS 07:36
PROVIDERS: Nurse Practitioner; PCP Internal Medicine; Visit Provider Surgery
DX: K43.9 Ventral hernia without obstruction or gangrene (principal); Z53.8 Procedure and treatment not carried out for other reasons; M62.08 Separation of muscle (nontraumatic), other site
CPT/HCPCS: 81025; J0690

== ENCOUNTER 2024-08-26 10:56 | Outpatient (AMB) | payer MEDICAID, SELFPAY ==
--- NOTE | 2024-08-26 11:02 | MHC.OFFVIS ---
Vital Signs 08/26/24 11:03 Height 4 ft 11 in Weight 190 lb 6 oz BMI 38.4 BP 145/80 H Blood Pressure Location Rt brachial Position Sitting Pulse 82 Intake Visit Reasons: S/P recurrent supraumbilical hernia w/mesh Intake Note: This patient presents for post-op follow-up to re-discuss supraumbilical hernia repair with mesh. Pt c/o; reports her surgery was cancelled. Vending Machine Mechanic Required: Yes Vending Machine Mechanic Language: Analytics Developer Services: Vending Machine Mechanic Present Vending Machine Mechanic Name: Antonietta Information Interpreted: non-clinical & clinical Accompanied by: Other Relationship Allergies latex [LATEX] Allergy (Intermediate, Verified 08/26/24 11:10) HANDS SWELL HPI HPI S/P recurrent supraumbilical hernia w/mesh: Details: She was scheduled to undergo repair of a supraumbilical hernia last 08/13/2024. However, I had to cancel this as my review of her CT scan images actually showed a very small umbilical hernia. I asked her to come back to the office to rediscuss this. She does have a diastasis of her rectus as well She denies I complaints. She admits to sharp pains on the old supraumbilical hernia repair site periodically. [facility] Medical History Elevated cholesterol Obesity (BMI 30-39.9) Supraumbilical hernia HTN (hypertension) Anemia History of hypothyroidism Hx of sleep apnea Diastasis recti Depression Asthma GERD (gastroesophageal reflux disease) Surgical History Hx of section History of umbilical hernia repair (05/13/19) Family History Father No problems noted. Mother HTN (hypertension) Asthma Hyperthyroidism Diabetes Paternal Aunt Breast cancer Social History Household Members: Spouse and Children Housing: Apartment Are you a primary housekeeper caregiver to a significant other at home: No Do you presently have visiting nurse or other home services: No Alcohol intake: former Patient Tobacco Use Status: Never used Tobacco Sexual orientation: Straight/Heterosexual Gender identity: Female Female Reproductive History Menstrual Age of Menarche: 13 Review of Systems Const Denies chills and Denies fever(s) Card Denies chest pain Resp Denies cough GI Denies diarrhea and Denies vomiting Physical Exam Vital Signs: Last Vital Signs Pulse 82 08/26/24 11:03 BP 145/80 H 08/26/24 11:03 BMI result Body Mass Index 38.4 Const Other: Morbidly obese General: comfortable and no acute distress Resp Effort & Inspection: normal respiratory effort Cardio Rate: regular rate GI Other: Obese, soft, no palpable hernia, has a diastasis recti Assessment & Plan Assessment & Plan (1) Diastasis recti: Comment: Very obvious 02/21/2023., and 2023, will place PT referral has already seen surgeonsomar abd repair Code(s): M62.08 - Separation of muscle (nontraumatic), other site Category: Medical Plan: I explained to her again my findings on CT scan. I told her that with a very small umbilical hernia, I would not recommend any surgical intervention. I explained to her that she has this has diastasis recti. This should not require surgical intervention I told her that weight loss may have big benefit to her. I did tell her that if she has worsening of discomfort on the umbilical area, she can come back to the office to be re-evaluated Her was with her during the visit She is also to see her car changer. Coding Level of Care Code Est Pt Level 2 (53893) Diagnoses Diastasis recti M62.08
[2024-08-26 11:03] VITALS: BP 145/80; PULSE 82; BMI 38.4
== END 2024-08-26 11:25 | disposition home or self-care (01) ==
PROVIDERS: PCP Internal Medicine; Visit Provider Surgery
DX: M62.08 Separation of muscle (nontraumatic), other site (principal)
CPT/HCPCS: 99212

== ENCOUNTER → 2024-08-26 10:56 | Outpatient (BNVA) | payer MEDICAID, SELFPAY | PROVIDERS: PCP Internal Medicine; Visit Provider Surgery | DX: M62.08 Separation of muscle (nontraumatic), other site (principal) | CPT/HCPCS: 99212 ==

== ENCOUNTER 2024-09-06 08:59 | Outpatient (AMB) | payer MEDICAID, SELFPAY ==
[2024-09-06 09:18] VITALS: BP 108/62; PULSE 73; BMI 39.0
--- NOTE | 2024-09-06 09:18 | A.OFFVIS_ITS ---
Vital Signs 09/06/24 09:18 Height 4 ft 11 in Weight 192 lb 14.472 oz BMI 39.0 BP 108/62 Blood Pressure Location Lt brachial Position Sitting Pulse 73 Pulse Source Pulse Oximeter Intake Visit Reasons: PCOS Intake Note: Patient present today for PCOS office visit. Director Industrial Relations Required: Yes Director Industrial Relations Language: Retail Account Specialist Services: Director Industrial Relations Present Information Interpreted: non-clinical & clinical Accompanied by: Spouse Allergies latex [LATEX] Allergy (Intermediate, Verified 09/06/24 09:22) HANDS SWELL Medication List - Last Reconciled 09/06/24 by Savannah Handy MD albuterol sulfate 90 mcg/actuation (ProAir HFA) 2 puffs inhalation Q4H PRN betamethasone valerate 0.1% topical diphenhydramine HCl (Banophen) 25 mg PO Q6H PRN escitalopram oxalate 10 mg PO QAM ibuprofen 800 mg PO Q8H levothyroxine 137 mcg PO QAM loratadine 10 mg PO DAILY PRN nifedipine ER 60 mg PO QAM pravastatin 40 mg PO QAM sertraline 50 mg PO QAM trazodone 100 mg PO BEDTIME PRN HPI Comments Details: 39-year-old female coming in today for follow up of PCOS and obesity HPI from initial visit 06/14/24 Says she was diagnosed with PCOS 4 years ago She was reporting heavy irregular menstrual bleeding with control , she on implant plus progesterone injections tried around that time Currently using condoms IUD taken out in December 2023 Mirena because she felt she was gaining weight on the Mirena. Though after taking out the IUD she has not lost any weight. She is not currently planning any . Currently sexually active with , uses condoms 2 years . 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 She is interested in weight loss surgery Meds currently Stopped metformin 500 mg BID stopped one month ago due to well controlled sugars? Was on it since 2022 She reports did not require any insulin during gestational diabetes. She was on oral medications. No acne only few chin hair , not excessive No other hirsutism Feels like she does have hair loss diffusely not particulary any pattern HAs hypothyroidism, biochemically euthyroid per recent labs No easy bruising, no proximal muscle weakness, no abdominal striae. No facial plethora. No change in ring size or shoe size. Has a history of hypothyroidism, currently on levothyroxine 137 mcg daily. Umbilical Hernia surgery 2019, now with recurrence and needs repair, seeing gen surgery Because of hernia recurrence she has not been exercising recently gets abd pain OTherwise was walking 4 times a week for 30 mins Diet: Lots of fruits and vegetables and salad Uses air fryer Eats out only once a week No sugary drinks 3 meals a day , no snacks Breakfast: oatmeal or scrambled eggs with salad Lunch: Fish with some salad, Tuna fish with crackers Dinner: about the same as lunch , fried plantains , fruit smoothies Not using any calorie counting apps currently Low libido since 4 months becuase of the way she feels about her body Interval history 09/06/24 BMI 39 kg/m2, current weight 192 lbs Exercise : still walking 4 times a week 30 mins Intermittent fasting since 4 weeks so August 2024, doesnt eat 10 to 12 hrs in the day Didnt get a chance to download phone travon LOSE IT She is interested in weight loss meds. No active anxiety or depression issues . Sees therapist. 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 Pulmonary: No SOB GI: Has abdominal pain intermittently when she moves due to the recurrence of umbilical hernia : no burning micturition, dysuria or increase in urinary frequency Physical exam General: sitting comfortably in no acute distress, no excessive hair noted on face, abdomen HEENT: normocephalic/atraumatic,, moist oral mucosa Neck: supple, symmetrical, no thyromegaly , does have dorsocervical or supraclavicular fat pads Cardiac: normal heart sounds Pulm: normal breath sounds B/L Abd: not distended, no tenderness, umbilical hernia noted, no abnormal purple striae Extremities: no edema, no signs of myxedema Neuro: AAO x3, Speech: normal, no facial droop, moving all 4 extremities Laboratory Tests 06/22/18 03/18/20 03/23/20 10:38 12:57 11:01 Creatinine Estimated GFR Fasting Glucose Glucose 1 Hour Glucose 2 Hour Glucose 3 Hour Hemoglobin A1c 5.3 Glucose 1 Hr 50 gm 162 H 155 H Hemoglobin A1c % AST ALT Triglycerides 172 Cholesterol 232 LDL Cholesterol, Calc 155 HDL Cholesterol 43 TSH Free T4 Prolactin 03/24/20 03/24/20 03/24/20 08:50 09:55 10:55 Creatinine Estimated GFR Fasting Glucose 92 Glucose 1 Hour 146 Glucose 2 Hour 137 Glucose 3 Hour Hemoglobin A1c Glucose 1 Hr 50 gm Hemoglobin A1c % AST ALT Triglycerides Cholesterol LDL Cholesterol, Calc HDL Cholesterol TSH Free T4 Prolactin 03/24/20 12/16/21 07/12/23 11:54 00:32 11:03 Creatinine Estimated GFR Fasting Glucose Glucose 1 Hour Glucose 2 Hour Glucose 3 Hour 135 Hemoglobin A1c Glucose 1 Hr 50 gm Hemoglobin A1c % AST 15 ALT 21 Triglycerides Cholesterol LDL Cholesterol, Calc HDL Cholesterol TSH 6.02 H Free T4 0.84 Prolactin 09/12/23 05/21/24 06/14/24 12:05 13:09 09:50 Creatinine 0.69 Estimated GFR > 60 Fasting Glucose Glucose 1 Hour Glucose 2 Hour Glucose 3 Hour Hemoglobin A1c Glucose 1 Hr 50 gm Hemoglobin A1c % 5.6 AST ALT Triglycerides 107 Cholesterol 173 LDL Cholesterol, Calc 111 H HDL Cholesterol 41 TSH 2.77 1.92 Free T4 Prolactin 7.1 [facility] Medical History Elevated cholesterol Obesity (BMI 30-39.9) Supraumbilical hernia HTN (hypertension) Anemia History of hypothyroidism Hx of sleep apnea Diastasis recti Depression Asthma GERD (gastroesophageal reflux disease) Surgical History Hx of section History of umbilical hernia repair (05/13/19) Family History Father No problems noted. Mother HTN (hypertension) Asthma Hyperthyroidism Diabetes Paternal Aunt Breast cancer Social History Household Members: Spouse and Children Housing: Apartment Are you a primary direct care supervisor to a significant other at home: No Do you presently have visiting nurse or other home services: No Alcohol intake: former Patient Tobacco Use Status: Never used Tobacco Sexual orientation: Straight/Heterosexual Gender identity: Female Female Reproductive History Menstrual Age of Menarche: 13 Physical Exam Vital Signs: Last Vital Signs Pulse 73 09/06/24 09:18 BP 108/62 09/06/24 09:18 BMI result Body Mass Index 39.0 Assessment & Plan Assessment & Plan (1) Obesity (BMI 30-39.9): Code(s): E66.9 - Obesity, unspecified Category: Medical Plan: 39-year-old patient with past medical history significant for hypertension, hyperlipidemia, gestational diabetes mellitus not currently , KELL on CPAP who is here today for follow up of obesity. Referral was made for polycystic ovarian syndrome, however patient has regular periods, no signs of hyperandrogenism and recent pelvic ultrasound from October 2023 showed no polycystic ovaries. She follows with OBGYN regularly, and her major concern today is obesity. Current BMI 39. kg per m2, current weight 192 lb, in June she was 193 lb this is the highest she has ever been. She has been trying to build up her stamina for walking, however has been walking 4 days daily, with no changes in her weight, she is also doing intermittent fasting again no major changes in weight she has the same since past 3 months. Used to be 135 lb, 4-5 years ago. When I reviewed the chart she has gained about 15 lb in the last 4 years. Mostly eating healthy with limited outside food, incorporating more greens and less carbohydrates and fats, however not keeping account of any calorie counting. I again reiterated to her today importance of calorie counting. She has had 4 pregnancies, not desiring any future pregnancies. She used to be on metformin 500 mg b.i.d. for impaired glucose tolerance but was taken off it in May 2024 due to well-controlled blood sugars. A1c 5.6 from June 2024. She also has hyperlipidemia, currently on pravastatin. She also has KELL. Uses CPAP. Given multiple comorbidities and that her BMI is greater than 35 kg m2, she meets criteria for bariatric surgery. She is interested in weight loss surgery. Hypertension well-controlled. I placed a referral but method says she does not qualify for surgery, I will reach out to them again and see what criteria she is not meeting. Focused again today on extensive lifestyle modification today with weight loss counseling done. I reviewed with patient the importance of weight loss as it relates to decreasing the risk of diabetes, cardiovascular disease, obstructive sleep apnea,PCOS, arthritis. We reviewed the importance of decreasing total calorie consumption, minimizing fats and carbohydrates. We discussed 500 calorie deficit using the LOSE IT phone application , to aim for 1 lb weight loss per week for the next 12 weeks to aim for 180 lbs which is also around 7 % weight loss Start with 4000 to 5000 steps a day and build up to walking more than 10,000 steps a day. Incorporate some resistance exercises in your exercise regimen. Thinking of other endocrine causes of obesity, she is biochemically euthyroid on levothyroxine 137 mcg daily. No features on exam to suggest hypercortisolism or acromegaly. she has no history of thyroid cancer in the family, no history of pancreatitis, no alcohol use, would benefit from a GLP 1 agonist such as Wegovy or Zepbound for weight loss. , but her target weight loss is much high and these would be suboptimal. However given her insurance now we have to 1st try Qsymia. No history of seizure disorder, kidney stones, glaucoma, . HTN is well controlled. No active psychiatric issue. Mood is good. She is using condoms for control. We will check a test. test done 09/06/2019 5-. Plan: -aim for a 1 lb weight loss per week for the next 12 weeks prior to her next follow up to aim for a weight loss 7%/target of 180 -dietary counseling as well as active exercise regimen as planned above -start phentermine/topiramate 3.75/23 mg daily for 2 weeks with follow up in 2 weeks with plan for up titrating the dose after -we will need monthly test on medication, patient advised about teratogenicity. -follow up in 2 weeks Plan I spent 30 minutes in reviewing the record, seeing the patient and documenting in the medical record. Orders: Orders HCG Quantitative Today E66.9 - Obesity, unspecified Medications: New phentermine-topiramate 3.75-23 mg ER 1 cap PO DAILY 14 days 14 caps 0RF Patient Instructions: Do test Once result is negative, we will send medication named phenteramine/topiramate 3.75/23 mg to take for 14 days We will see you back in 2 weeks and increase the dose If you start having uncontrolled herat pounding, headaches, any vision changes, any rash reaction to medicine, please call us right away during office hours Weight loss counselling ?Limit added sugars to less than 25 grams daily. There are 4.2 grams of sugar per teaspoon of sugar. A teaspoon of honey has 6 grams of sugar! Bread also can have more sugar than you think-check labels ?No soda or juices. Drink water, unsweetened iced tea or seltzer ?Limit eating out/take out or prepared meals to twice weekly at most ?Avoid red meat, hot dogs, bustillo and deli meat. Substitute plant protein for animal protein as much as you can. Beans, nuts, tofu, soy milk ?Limit cheese to 1 ounce a few times weekly ?Eat high fiber foods like beans, apples and green veggies, salsa is a great snack with whole grain cracker like Wasa ?Look for the whole grain stamp when choosing bread etc. Aim for 48 grams of whole grains daily. Whole wheat does not equal whole grains! ?Don't keep tempting treats in the house. Go out once in a while for a treat. ?Don't eat anything deep fried or cream based-no sour cream I reviewed with patient the importance of weight loss as it relates to decreasing the risk of diabetes, cardiovascular disease, obstructive sleep apnea,PCOS, arthritis. We reviewed the importance of decreasing total calorie consumption, minimizing fats and carbohydrates. We discussed 500 calorie deficit using the LOSE IT phone application , to aim for 1 lb weight loss per week for the next 12 weeks to aim for 180 lbs which is also around 7 % weight loss We reviewed the plate method. I recommended avoiding eating after 7 PM at night. She was advised to start exercising 30-45 mins a day , Start with 4000 to 5000 steps a day and build up to walking more than 10,000 steps a day. Wait on doing reistance exercises for now given hernia hacer prueba de embarazo Sundar vez que el resultado sea negativo, le enviaremos un medicamento llamado fenteramina/topiramato 3,75/23 mg para alexandru jesica 14 d?as. Nos vemos en 2 semanas y aumentamos la dosis. Si comienza a tener palpitaciones incontrolables, ricarda de chacorta, cualquier cambio en la visi?n, cualquier reacci?n cut?samanta a un medicamento, ll?menos de inmediato jesica el horario de oficina. Asesoramiento para bajar de peso. ?Limita los az?cares agregados a menos de 25 gramos diarios. Hay 4,2 gramos de az?car por cucharadita de az?car. ?Sundar cucharadita de miel tiene 6 gramos de az?car! El navarrete tambi?n puede tener m?s az?car de lo que crees: revisa las etiquetas ?No refrescos ni jugos. Zelda agua, t? helado sin az?car o agua mineral. ?Limitar comer fuera/para llevar o comidas preparadas a dos veces por semana brandy m?ximo ?Evite las rufus aguilar, las salchichas, el tocino y las rufus fr?as. Sustituye la prote?na animal por prote?na vegetal tanto brandy puedas. Frijoles, nueces, tofu, leche de soja. ?Limite el queso a 1 onza algunas veces por semana. ?Coma alimentos ricos en fibra brandy frijoles, manzanas y verduras verdes. La salsa es un excelente refrigerio con galletas integrales brandy Wasa. ?Busque el sello de cereales integrales al elegir navarrete, etc. Trate de consumir 48 gramos de cereales integrales al d?a. ?El gala integral no es igual a los cereales integrales! ?No tengas golosinas tentadoras en casa. Devendra de vez en cuando a darte un capricho. ?No coma nada frito ni a base de crema, ni crema agria. Mir? con el paciente la importancia de la p?rdida de peso en relaci?n con la disminuci?n del riesgo de diabetes, enfermedades cardiovasculares, apnea obstructiva del holley?o, s?ndrome de ovario poliqu?stico y artritis. Revisamos la importancia de disminuir el consumo total de calor?as, minimizando las grasas y los carbohidratos. Discutimos el d?ficit de 500 calor?as usando la aplicaci?n telef?sridhar LOSE IT, para apuntar a sundar p?rdida de peso de 1 lara por semana jesica las pr?ximas 12 semanas para apuntar a 180 libras, lo que tambi?n equivale a sundar p?rdida de peso de alrededor del 7 %. Revisamos el m?todo del plato. Recomend? evitar comer despu?s de las 7 de la noche. Le recomendaron que comenzara a hacer ejercicio entre 30 y 45 minutos al d?a. Comience con 4000 a 5000 pasos por d?a y aumente hasta caminar m?s de 10,000 pasos por d?a. Espere a hacer ejercicios de resistencia por ahora colleen la hernia. Coding Level of Care Code Est Pt Level 4 (64113) Diagnoses Obesity (BMI 30-39.9) E66.9 Time Spent (min) 30
== END 2024-09-06 09:50 | disposition home or self-care (01) ==
PROVIDERS: PCP Internal Medicine; Visit Provider Student in an Organized Health Care Education/Training Program
DX: E66.9 Obesity, unspecified (principal)
CPT/HCPCS: 99214

== ENCOUNTER → 2024-09-06 08:59 | Outpatient (BNVA) | payer MEDICAID, SELFPAY | PROVIDERS: PCP Internal Medicine; Visit Provider Student in an Organized Health Care Education/Training Program | DX: E66.9 Obesity, unspecified (principal); Z68.39 Body mass index [BMI] 39.0-39.9, adult | CPT/HCPCS: 36415; 84702; 99212 ==

== ENCOUNTER 2024-09-06 10:05 | Outpatient (REF) | payer MEDICAID, SELFPAY ==
[2024-09-06 11:07] LABS: HCG Quantitative < 2 mIU/mL
== END 2024-09-06 10:06 | disposition home or self-care (01) ==
LOC: HO.10HDL 10:05
PROVIDERS: Visit Provider Student in an Organized Health Care Education/Training Program
DX: E66.9 Obesity, unspecified (principal)
CPT/HCPCS: 36415; 84702

== ENCOUNTER 2024-09-20 08:01 | Outpatient (AMB) | payer MEDICAID, SELFPAY ==
--- NOTE | 2024-09-20 12:34 | MHC.OFFVISWM ---
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 *OFFENSIVE COORDINATOR* Information Systems Manager Required: Yes Information Systems Manager Services: Information Systems Manager Present Information Interpreted: clinical only Allergies latex [LATEX] Allergy (Intermediate, Verified 09/20/24 12:37) HANDS SWELL Medication List - Last Reconciled 09/20/24 by Parmjit Caraballo MD albuterol sulfate 90 mcg/actuation (ProAir HFA) 2 puffs inhalation Q4H PRN levothyroxine 137 mcg PO QAM metformin 500 mg PO BID nifedipine ER 60 mg PO QAM phentermine 15 mg PO DAILY HPI HPI 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 BMI 37.9 *OFFENSIVE COORDINATOR*: Details: Start time: 12.35pm, End time: 1.22pm ?I spent 42 minutes speaking with the patient on the phone plus an additional 5 minutes reviewing and updating records for a total of 47 minutes HPI Comments Details: Previous weight loss efforts: RD, Phentermine, exercise, intermittent fasting Wakes up: 6am, Sleeps: 9pm Breakfast: skips Lunch: 12pm (salad with eggs and cheese) Dinner: 5pm (salad, eggs and avocado) Snacks: none Exercise: none Fluids: Coffee: none, tea: occasionally, soda: none, juice: none, ETOH: none PFSH Medical History (Updated 09/20/24 @ 12:42 by Parmjit Caraballo MD) Non-insulin dependent type 2 diabetes mellitus Sleep apnea treated with continuous positive airway pressure (CPAP) Sleep apnea Hypothyroidism Elevated cholesterol Obesity (BMI 30-39.9) Supraumbilical hernia HTN (hypertension) Anemia History of hypothyroidism Hx of sleep apnea Diastasis recti Depression Asthma GERD (gastroesophageal reflux disease) Surgical History Hx of section History of umbilical hernia repair (05/13/19) Family History (Updated 09/12/24 @ 09:20 by Guerline Shepherd CMA) Father No problems noted. Mother HTN (hypertension) Asthma Hyperthyroidism Diabetes Paternal Aunt Breast cancer Son Asthma Son Asthma ADHD Son Asthma Daughter Autism Social History Household Members: Spouse and Children Housing: Apartment Are you a primary foster care therapist to a significant other at home: No Do you presently have visiting nurse or other home services: No Alcohol intake: former Patient Tobacco Use Status: Never used Tobacco Sexual orientation: Straight/Heterosexual Gender identity: Female Female Reproductive History Menstrual Age of Menarche: 13 Telehealth Telehealth Telehealth Platform: Telephone Location of provider rendering services: practice address Location of patient: address on file Patient Identification confirmed using: Name, : Yes Telehealth method: voice only Patient verbally consented to treatment: Yes Patient verbally consented to billing insurance company: Yes Patient informed of any privacy concerns related to visit: Yes Minutes spent on Phone/Video with Pt.: 47 Assessment & Plan Assessment & Plan (1) Obesity (BMI 30-39.9): Code(s): E66.9 - Obesity, unspecified Category: Medical Plan: 1.? Plan for lap sleeve gastrectomy. If diaphragmatic or ventral hernias are present at time of surgery, these will be repaired laparoscopically as well. I emphasized the importance of close follow-up, adherence to instructions and good communication. The surgery does not replace the need to change your lifestlyle which is the cause of the obesity problem. The surgery provides the motivation to try again to change your lifestyle, it reduces the appetite and make the transition to a better lifestyle easier and doubles the amount of weight you would lose compared to doing the lifestyle change without the surgery. You will need to be on a liquid diet with protein shakes for 2 weeks before surgery to maximize weight loss and boost your nutritional status to recover better from surgery and also for the first two weeks after surgery to let the stomach heal before we introduce other foods. After the first 2 weeks we will introduce protein bars and soft foods like scrambled eggs, cottage cheese and yogurt and after the 6th week will introduce meat, fish and cooked vegetables in small amounts. Over time you should be able to eat everything in small amounts. Side effects like nausea, vomiting, heartburn or abdominal pain are not common in the practice unless you are not following in the practice. This operation requires lifetime commitment to following in our practice and communication with me. You will much less weight and experience side effects if you don?t communicate or not following in the practice. Complications are rare and in our practice is about 1/10 of the national average. However, you can develop bleeding that may require transfusion (hasn?t happened for year in the practice), you may from complications (we did not have any deaths in the practice) and infections. Infections are usually a result of breakdown in communication or not understanding or following directions correctly. They are difficult to treat, they can happen during the first 6 weeks, they may require to be in the hospital for weeks or even months, not being able to eat by mouth and you may have drains and surgeries to try and correct the issue. Other risks and complications include possible conversion to an open procedure, leaks, small bowel obstruction, blood clots, cardiac, or pulmonary complications, as detention complications such as ulcers, insufficient weight loss and vitamin deficiencies. 2. Please buy a body composition scale and start sharing measurements with me 3. Do aerobic exercise (outside walking, or treadmill, or elliptical or stationary bike) and do 150 minutes of aerobic exercise per week, or 22 minutes per day. 4. Start the Wegovy when you get your body composition scale once a week. Use a calorie-counting travon to track your daily calories to create a calorie deficit with a target of consuming 1156-6662 calories per day. We discussed the potential side effects of Wegovy such as nausea, vomiting, abdominal pain, diarrhea and constipation and you will need to contact me if any of these symptoms occur or for any other new symptom you may experience 5.?It is important of avoiding and for at least 18 months postoperatively and has been discussed at the infosession. ?6. Goal is to lose at least 1.5-2lbs per week ?7. Goal to lose 10% of your weight before surgery, which is about 19lbs. Ultimate weight goal: 168lbs before surgery Orders: Orders Insulin Today E11.9 - Type 2 diabetes mellitus without complications, E66.9 - Obesity, unspecified, I10 - Essential (primary) hypertension, Z68.37 - Body mass index [BMI] 37.0-37.9, adult Hemoglobin A1c Today E11.9 - Type 2 diabetes mellitus without complications, E66.9 - Obesity, unspecified, I10 - Essential (primary) hypertension, Z68.37 - Body mass index [BMI] 37.0-37.9, adult H Pylori Breath Test Today E11.9 - Type 2 diabetes mellitus without complications, E66.9 - Obesity, unspecified, I10 - Essential (primary) hypertension, Z68.37 - Body mass index [BMI] 37.0-37.9, adult Lipid Panel Today E11.9 - Type 2 diabetes mellitus without complications, E66.9 - Obesity, unspecified, I10 - Essential (primary) hypertension, Z68.37 - Body mass index [BMI] 37.0-37.9, adult Vitamin B12 and Folate Today E11.9 - Type 2 diabetes mellitus without complications, E66.9 - Obesity, unspecified, I10 - Essential (primary) hypertension, Z68.37 - Body mass index [BMI] 37.0-37.9, adult C Reactive Protein Today E11.9 - Type 2 diabetes mellitus without complications, E66.9 - Obesity, unspecified, I10 - Essential (primary) hypertension, Z68.37 - Body mass index [BMI] 37.0-37.9, adult TSH reflex Free T4 Today E11.9 - Type 2 diabetes mellitus without complications, E66.9 - Obesity, unspecified, I10 - Essential (primary) hypertension, Z68.37 - Body mass index [BMI] 37.0-37.9, adult Ferritin Today E11.9 - Type 2 diabetes mellitus without complications, E66.9 - Obesity, unspecified, I10 - Essential (primary) hypertension, Z68.37 - Body mass index [BMI] 37.0-37.9, adult Vitamin D 25-OH Total Today E11.9 - Type 2 diabetes mellitus without complications, E66.9 - Obesity, unspecified, I10 - Essential (primary) hypertension, Z68.37 - Body mass index [BMI] 37.0-37.9, adult XR chest 2V Today E11.9 - Type 2 diabetes mellitus without complications, E66.9 - Obesity, unspecified, I10 - Essential (primary) hypertension, Z68.37 - Body mass index [BMI] 37.0-37.9, adult ECG 12 lead EKG Today E11.9 - Type 2 diabetes mellitus without complications, E66.9 - Obesity, unspecified, I10 - Essential (primary) hypertension, Z68.37 - Body mass index [BMI] 37.0-37.9, adult Complete Blood Count Auto Diff Today E11.9 - Type 2 diabetes mellitus without complications, E66.9 - Obesity, unspecified, I10 - Essential (primary) hypertension, Z68.37 - Body mass index [BMI] 37.0-37.9, adult IRON PROFILE Today E11.9 - Type 2 diabetes mellitus without complications, E66.9 - Obesity, unspecified, I10 - Essential (primary) hypertension, Z68.37 - Body mass index [BMI] 37.0-37.9, adult Comprehensive Met. Panel Today E11.9 - Type 2 diabetes mellitus without complications, E66.9 - Obesity, unspecified, I10 - Essential (primary) hypertension, Z68.37 - Body mass index [BMI] 37.0-37.9, adult Zinc Today E11.9 - Type 2 diabetes mellitus without complications, E66.9 - Obesity, unspecified, I10 - Essential (primary) hypertension, Z68.37 - Body mass index [BMI] 37.0-37.9, adult Vitamin B1 Today E11.9 - Type 2 diabetes mellitus without complications, E66.9 - Obesity, unspecified, I10 - Essential (primary) hypertension, Z68.37 - Body mass index [BMI] 37.0-37.9, adult Vitamin A Today E11.9 - Type 2 diabetes mellitus without complications, E66.9 - Obesity, unspecified, I10 - Essential (primary) hypertension, Z68.37 - Body mass index [BMI] 37.0-37.9, adult US abdomen comp w elastography Today E11.9 - Type 2 diabetes mellitus without complications, E66.9 - Obesity, unspecified, I10 - Essential (primary) hypertension, Z68.37 - Body mass index [BMI] 37.0-37.9, adult FL upper GI w air Today E11.9 - Type 2 diabetes mellitus without complications, E66.9 - Obesity, unspecified, I10 - Essential (primary) hypertension, Z68.37 - Body mass index [BMI] 37.0-37.9, adult Referrals Behavioral Health Referral E11.9 - Type 2 diabetes mellitus without complications, E66.9 - Obesity, unspecified, I10 - Essential (primary) hypertension, Z68.37 - Body mass index [BMI] 37.0-37.9, adult Nutrition/Dietitian Referral E11.9 - Type 2 diabetes mellitus without complications, E66.9 - Obesity, unspecified, I10 - Essential (primary) hypertension, Z68.37 - Body mass index [BMI] 37.0-37.9, adult Medications: New semaglutide (weight loss) (Jessica) administer weeks 5 through 8 of therapy 0.5 mg (0.5 mL) subcut QWEEK 2 mL 0RF E11.9 - Type 2 diabetes mellitus without complications, E66.9 - Obesity, unspecified, Z68.37 - Body mass index [BMI] 37.0-37.9, adult
[2024-09-20 12:49] VITALS: BMI 37.9
== END 2024-09-20 13:23 | disposition home or self-care (01) ==
LOC: HO.HBS 08:01
PROVIDERS: PCP Internal Medicine; Visit Provider Surgery
DX: E66.9 Obesity, unspecified (principal)
CPT/HCPCS: 99204

== ENCOUNTER → 2024-09-20 08:01 | Outpatient (BNVA) | payer MEDICAID, SELFPAY | PROVIDERS: PCP Internal Medicine; Visit Provider Surgery ==

== ENCOUNTER 2024-09-30 08:41 | Outpatient (REF) | payer MEDICAID, SELFPAY ==
--- NOTE | ~2024-09-30 | XR_ITS ---
EXAMINATION: XR CHEST CLINICAL INFORMATION: E66.9 - Obesity, unspecified COMPARISON: Chest x-ray 03/04/2023 TECHNIQUE: 2 views of the chest were obtained. FINDINGS: No significant abnormality is noted involving the heart, lungs, mediastinum, bony thorax or soft tissues. XR/XR chest 2V IMPRESSION: Unremarkable chest examination. Electronically signed by: Sid Burk MD 09/30/2024 10:13 AM [facility]
[2024-09-30 09:09] LABS: MANUAL DIFF FLAG NO
[2024-09-30 09:38] LABS: Basophils Percent Auto 0.4 % (0-2); Eosinophils Absolute Auto 0.2 X10*3/uL (0.0-0.4); Eosinophils Percent Auto 2.3 % (0-4); Hematocrit 37.5 % (37.0-47.0); Hemoglobin 11.5 g/dl (12.0-16.0); Imm Gran Abs Auto 0.03 X10*3/uL (0.00-0.03); Imm Gran Pct Auto 0.4 % (0.0-0.4); Lymphocytes Absolute Auto 1.4 X10*3/uL (1.2-4.9); Lymphocytes Percent Auto 20.6 % (20-40); Mean Corpuscular HGB Conc 30.7 g/dl (31.0-35.0); Mean Corpuscular Hemoglobin 25.2 pg (27.0-33.0); Mean Corpuscular Volume 82.1 fL (80.0-98.0); Monocytes Absolute Auto 0.4 X10*3/uL (0.1-1.2); Monocytes Percent Auto 6.1 % (2-11); Neutrophils Absolute Auto 4.8 x10*3/uL (2.0-8.3); Neutrophils Percent Auto 70.2 % (45-73); Platelet Count 286 X10*3/uL (160-400); Red Blood Count 4.57 X10*6/uL (4.20-5.50); Red Cell Distribution Width 15.2 % (11.0-16.0); White Blood Count 6.8 X10*3/uL (4.8-10.8)
[2024-09-30 09:49] LABS: Estimated Average Glucose 123 mg/dL; Hemoglobin A1C 121.3506 umol/L; Hemoglobin A1c % 5.9 % (<6.0); Total Hemoglobin (HGBA1C) 2982.8252 umol/L
[2024-09-30 10:16] LABS: Alanine Aminotransferase 17 U/L (0-31); Albumin Level 4.4 g/dL (3.5-5.0); Alkaline Phosphatase 74 U/L (39-117); Anion Gap 8 (12-20); Aspartate Amino Transferase 22 U/L (5-31); Bilirubin Total 0.3 mg/dL (0.0-1.0); Blood Urea Nitrogen 27 mg/dL (9-16); C Reactive Protein 0.47 mg/dL (< or = 0.50); Calcium 9.1 mg/dL (8.4-10.2); Carbon Dioxide 26 mmol/L (22-29); Chloride 108 mmol/L (96-108); Cholesterol 170 mg/dL (<200); Estimated Glomerular Filt Rate > 60; Glucose Random 108 mg/dL (60-115); HDL Cholesterol 39 mg/dL (>40); Iron 33 mcg/dL (30-160); LDL Cholesterol Calculated 101 mg/dL (<100); Percent Iron Saturation 8 % (15-50); Potassium 3.8 mmol/L (3.3-5.1); Sodium 138 mmol/L (135-145); Total Iron Binding Capacity 396 mcg/dL (228-428); Total Protein 8.4 g/dL (6.5-8.0); Triglycerides 150 mg/dL (<150); Unsaturated Iron Binding 363 ug/dL
[2024-09-30 10:37] LABS: Ferritin 10 ng/mL (10-122); Folate 13.1 ng/mL (> or = 4.0); TSH reflex Free T4 1.27 uIU/mL (0.32-4.0); Vitamin B12 508 pg/mL (200-900); Vitamin D 25-OH Total 22.6 ng/mL (>30)
[2024-09-30 11:26] LABS: Insulin 18 uU/mL (2-29)
[2024-10-02 15:53] LABS: Zinc 71 mcg/dL (60-130)
[2024-10-03 22:34] LABS: Vitamin A 36 mcg/dL (38-98)
[2024-10-06 15:09] LABS: Vitamin B1 12 nmol/L (8-30)
== END 2024-09-30 08:42 | disposition home or self-care (01) ==
LOC: HO.XRAY 08:41
PROVIDERS: PCP Internal Medicine; Visit Provider Surgery
DX: G47.33 Obstructive sleep apnea (adult) (pediatric) (principal); G47.19 Other hypersomnia; E66.9 Obesity, unspecified; Z68.37 Body mass index [BMI] 37.0-37.9, adult; E11.9 Type 2 diabetes mellitus without complications; I10 Essential (primary) hypertension
CPT/HCPCS: 36415; 71046; 80053; 80061; 82306; 82607; 82728; 82746; 83036; 83525; 83540; 84425; 84443; 84590; 84630; 85025; 86140; 99212

== ENCOUNTER → 2024-09-30 09:09 | Outpatient (BNV) | payer MEDICAID, SELFPAY | PROVIDERS: PCP Internal Medicine; Visit Provider Radiology Diagnostic Radiology | DX: E66.9 Obesity, unspecified (principal) | CPT/HCPCS: 71046 ==

== ENCOUNTER 2024-09-30 11:57 | Outpatient (AMB) | payer MEDICAID, SELFPAY ==
--- NOTE | 2024-09-30 12:41 | A.OFFVIS_ITS ---
Vital Signs 09/30/24 12:42 Height 4 ft 11 in Weight 187 lb 2 oz BMI 37.8 BP 122/80 Blood Pressure Location Lt brachial Position Sitting Pulse 86 Pulse Source Pulse Oximeter Pulse Oximetry (%) 96 Oxygen Delivery Method Room Air Intake Visit Reasons: Follow up Intake Note: Patient presents for a 5 mo fu for excessive sleepiness. Environmental Services Manager Required: Yes Environmental Services Manager Language: Clamshell Engineer Services: Environmental Services Manager Present Environmental Services Manager Name: Michael [phone] Accompanied by: Self / Same As Patient Allergies latex [LATEX] Allergy (Intermediate, Verified 09/30/24 12:42) HANDS SWELL Medication List - Last Reconciled 09/30/24 by Juan Diego Park PA-C albuterol sulfate 90 mcg/actuation (ProAir HFA) 2 puffs inhalation Q4H PRN levothyroxine 137 mcg PO QAM metformin 500 mg PO BID nifedipine ER 60 mg PO QAM phentermine 15 mg PO DAILY tirzepatide (weight loss) (Zepbound) 2.5 mg (0.5 mL) subcut QWEEK HPI Comments Details: 39-yr-old female presents for follow-up visit of sleep apnea. Pt was previously seen by our previous colleague Landy Beckett BUNDLE HELPER. HST which showed severe sleep apnea w/ AHI 65/hr and O2 naidr 63%. KELL Compliance Reviewed Jun 2024- 09/29/2024 >4 hours 50 days and 59/90days Avg use is 5 hours and 45 min Pressures set at [id number] Leaks 3.3 Max 37.1 AHI is 0.6 Pt denies any significant interval medical history changes. Awaiting Bariatric Surgical procedure. She goes to sleep at 9pm and wakes up at 6am. She goes to the bathroom 4 times a night, has a weak pelvis per public health veterinarian. She has 4 children. She has nocturia, she denies loss of urine with coughing, laughing. She states she is motivated to continue using CPAP. She sometimes sleeps with her daughter and doesn't use the CPAP. She denies morning headaches, restless legs. She is being evaluated for Bariatric surgery with [facility], she is being followed with weight management and interlocking machine operator for A1c control and nutrition. Diet is good. Mood and Memory is normal. She changes her filters, cleans mask and tubing as needed. [facility] Medical History Non-insulin dependent type 2 diabetes mellitus Sleep apnea treated with continuous positive airway pressure (CPAP) Sleep apnea Hypothyroidism Elevated cholesterol Obesity (BMI 30-39.9) Supraumbilical hernia HTN (hypertension) Anemia History of hypothyroidism Hx of sleep apnea Diastasis recti Depression Asthma GERD (gastroesophageal reflux disease) Surgical History Hx of section History of umbilical hernia repair (05/13/19) Family History Father No problems noted. Mother HTN (hypertension) Asthma Hyperthyroidism Diabetes Paternal Aunt Breast cancer Son Asthma Son Asthma ADHD Son Asthma Daughter Autism Social History Household Members: Spouse and Children Housing: Apartment Are you a primary customer care voice consultant to a significant other at home: No Do you presently have visiting nurse or other home services: No Alcohol intake: former Patient Tobacco Use Status: Never used Tobacco Sexual orientation: Straight/Heterosexual Gender identity: Female Female Reproductive History Menstrual Age of Menarche: 13 Review of Systems Const All systems reviewed & are unremarkable except as noted in HPI and below Physical Exam Vital Signs: Last Vital Signs Pulse 86 09/30/24 12:42 BP 122/80 09/30/24 12:42 Pulse Ox 96 09/30/24 12:42 Oxygen Delivery Method Room Air 09/30/24 12:42 BMI result Body Mass Index 37.8 Const General: cooperative, comfortable and no acute distress Orientation/consciousness: patient oriented x3 HEENT Other: Mallampati stage 4 Face and sinus: Yes normal facial exam and Yes face symmetric Eyes Pupils: Equal, round and reactive pupils present Neck Neck: Yes full ROM and Yes supple Resp Effort & Inspection: normal respiratory effort and able to speak in complete sentences Auscultation: clear to auscultation bilaterally Neuro General: patient oriented x3 and moves all extremities Cranial nerves: Yes CN's II-XII intact bilaterally, Yes Facial sensation intact/muscles of mastication intact, Yes Equal, round and reactive pupils present, Yes Normal accommodation reflex present, Yes Bilaterally intact EOM present, Yes Nystagmus not present, Yes Normal facial strength present, Yes Midline tongue present, Yes Ability to bilaterally rotate head present and Yes Ability to bilaterally elevate shoulders present Gait exam (Neuro): Normal gait present Motor exam (neuro): 5/5 motor strength present throughout and Normal motor muscle tone present throughout Deep tendon reflexes (DTR's): Right triceps reflex intensity grade: 2+, Left triceps reflex intensity grade: 2+, Rt Biceps (C5, C6): 2+, Left biceps reflex intensity grade: 2+, Right brachioradialis reflex intensity grade: 2+, Left brachioradialis reflex intensity grade: 2+, Right patellar reflex intensity grade: 2+ and Left patellar reflex intensity grade: 2+ Psych Mental Status: mental status grossly normal Speech and movement: Clear speech present Attitude: cooperative Results Reviewed Results Reviewed: 06/2024 - 09/29/2024 KELL Compliance Report >4 hours 50days 59/90days Avg us 5 hours and 45 min Pressures [id number] Leaks 3.3 Max 37.1 AHI is 0.6 Assessment & Plan Assessment & Plan (1) KELL (obstructive sleep apnea): Comment: Severe degree of sleep apnea. The AHI was 65/hr and oxygen yakelin was 63%. Never started on PAP tx. Code(s): G47.33 - Obstructive sleep apnea (adult) (pediatric) Category: Medical (2) Excessive daytime sleepiness: Comment: ESS 15 Code(s): G47.19 - Other hypersomnia Category: Medical Plan KELL Compliance is emphasized as patient has HTN and Diabetes. On CPAP at [id number], Use nightly >4 hours BMI is elvated 38, she is being followed by Endocrine and Weight management for Bariatric Procedure. F/U in 3 months for Compliance. Coding Level of Care Code Est Pt Level 3 (86171) Diagnoses KELL (obstructive sleep apnea) G47.33 Excessive daytime sleepiness G47.19 Time Spent (min) 30 Comment Environmental Services Manager on IPAD
[2024-09-30 12:42] VITALS: BP 122/80; PULSE 86; O2SAT 96; BMI 37.8
--- OUTSIDE RECORDS SUMMARY | 2024-09-30 16:56 | XMS_ITS | Clinical Summary ---
Author Organization [facility] ity Address [address] [place] [address] Care Team Providers Care Plaster Whittler Name Role Phone Unavailable Primary Care Provider Unavailabl e Surgical History Surgery Date Site/Laterality Comments HERNIA REPAIR 2018 PROCEDURE: REPAIR UMBILICAL HERNIA SECTION 2015 PROCEDURE: HISTORICAL DELIVERY Medical History Medical History Date Comments Abnormal Pap smear of cervix 05/12/2020 DX: Abnormal Pap smear of cervix; COMMENT: LSIL on 08/2019; Needs Colpo PP for 3 months PP Asthma 05/12/2020 DX:Asthma BMI 34.0-34.9,adult 05/12/2020 DX:BMI 34.0- 34.9,adult; COMMENT: BMI 34 at intake H/O hernia repair 05/12/2020 DX:H/O hernia repair; COMMENT: Umbilical hernia; Mesh placement 2018 Family History Medical History Relation Name Comments Asthma Mother Hypertension Mother Breast cancer Neg Hx Colon cancer Neg Hx Other cancer Neg Hx ovarian CA Uterine cancer Neg Hx Relation Name Status Comments Brother 1 Alive Brother 2 Alive Brother 3 Alive Brother 4 Alive Father Alive Maternal Grandfather Maternal Grandmother Alive Mother Alive Paternal Grandfather Paternal Grandmother Sister Alive Social History Tobacco Use Types Packs/Day Years Used Date Smoking Tobacco: Never Smokeless Tobacco: Never Alcohol Use Standard Drinks/Week Comments No 0 (1 standard drink = 0.6 oz pur e alcohol) Sex and Gender Information Value Date Recorded Sex Assigned at Not on file Gender Identity Not on file Sexual Orientation Not on file Obstetrics History Plan of Treatment Health Maintenance Due Date Last Done Comments DTaP,Tdap,and Td Vaccines (1 - Tdap) 2006 Hepatitis B Vaccines (1 of 3 - 19+ 3-dose series) 2006 Cervical Cancer Screening: P ap Smear 2008 COVID-19 Vaccine (2023-2 5 season) 2024 Influenza Vaccine (#1) 2024 HIB Vaccines Aged Out No longer eligi ble based on patient's age to complete this topic HPV Vaccines Aged Out No longer eligi ble based on patient's age to complete this topic Hepatitis A Vaccines Aged Out No long er eligible based on patient's age to complete this topic IPV Vaccines Aged Out No longer eligi ble based on patient's age to complete this topic MMR Vaccines Aged Out No longer eligi ble based on patient's age to complete this topic Meningococcal ACWY Vaccine Aged Out N o longer eligible based on patient's age to complete this topic Pneumococcal Vaccine: Pediat rics (0 to 5 Years) and At-Risk Patients (6 to 64 Years) Aged Out No longer eligible b ased on patient's age to complete this topic RSV Immunization Patients Un rodolfo 20 months Aged Out No longer eligible b ased on patient's age to complete this topic Varicella Vaccines Aged Out No longer eligible based on patient's age to complete this topic
== END 2024-09-30 13:42 | disposition home or self-care (01) ==
PROVIDERS: PCP Internal Medicine; Visit Provider Physician Assistant Medical
DX: G47.33 Obstructive sleep apnea (adult) (pediatric) (principal); G47.19 Other hypersomnia
CPT/HCPCS: 99213

== ENCOUNTER 2024-10-02 11:08 | Outpatient (AMB) | payer OTHER, SELFPAY ==
--- NOTE | 2024-10-02 11:00 | A.OFFWM_ITS ---
Intake Intake Visit Reasons: VIDEO BH Intake Allergies latex [LATEX] Allergy (Intermediate, Verified 09/30/24 12:42) HANDS [facility] Medical History Non-insulin dependent type 2 diabetes mellitus Sleep apnea treated with continuous positive airway pressure (CPAP) Sleep apnea Hypothyroidism Elevated cholesterol Obesity (BMI 30-39.9) Supraumbilical hernia HTN (hypertension) Anemia History of hypothyroidism Hx of sleep apnea Diastasis recti Depression Asthma GERD (gastroesophageal reflux disease) Surgical History Hx of section History of umbilical hernia repair (05/13/19) Family History Father No problems noted. Mother HTN (hypertension) Asthma Hyperthyroidism Diabetes Paternal Aunt Breast cancer Son Asthma Son Asthma ADHD Son Asthma Daughter Autism Social History Household Members: Spouse and Children Housing: Apartment Are you a primary care team assistant to a significant other at home: No Do you presently have visiting nurse or other home services: No Alcohol intake: former Patient Tobacco Use Status: Never used Tobacco Sexual orientation: Straight/Heterosexual Gender identity: Female Female Reproductive History Menstrual Age of Menarche: 13 Behavioral Health Assessment Weight Management Therapy Therapy Notes Details Mrs. Sheikh is a 39-year-old female presenting for her initial behavioral health visit as part of the psychological assessment for the surgical weight loss program at [facility]. 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 Her primary care provider (PCP) initially suspected a hormonal issue related to her weight concerns. The patient also has a history of polycystic ovary syndrome (PCOS) and insulin resistance, which may be contributing factors. She attends biweekly telehealth counseling sessions and has not taken psychotropic medications in the past year. She was previously prescribed trazodone for sleep and an unspecified medication for anxiety, but both were discontinued due to limited benefit. She has managed her symptoms independently since. PT has a history of anxiety, depression, and depression (PPD). Her anxiety is triggered in crowded spaces or situations where escape feels impossible, leading to fidgeting, shaking, and avoidance of social events. She denies panic attacks, psychiatric hospitalizations, or crisis care, and has no history of suicidal ideation, attempts, self-harm, or harm to others. Presenting Concerns Referral Source WMP-provider. Reason for referral Completion of behavioral health assessment as part of process for weight-loss surgery. Precipitating Event Obesity. Social History Family history and relationship PT is 3 years ago to her current hus band, they have been together for about 6 years. PT has 4 children, 2 oldest are from previous relationships and 2 the youngest are with the . PT has 5 siblings, her parents are alive but . PT reports she has good family relationships and they respect each other. 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 They are 16, 8, 4 and 2. 3 boys and 1 girl. Developmental history and status None reported. Currently WNL. Social support , children, family. Community support Providers. 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 Sikhism/Spirituality Grew up as yarsanism, but doesn't practice. Cultural/Ethnic information PT is from [place], and mainly [place]- speaking. PT returned to [place] 6 years ago. Legal Involvement and History Current or historical involvement with the legal system? None reported. Education Highest grade completed 12th, HS diploma. Educational Interests/Skills HAs done some training for early education as her daughter has autism and son ADHD. Also did nutrition training due to her oldest sons' multiple allergy issues. 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 mindful walks alone in a park. Financial Situation Describe current financial situation Comfortable Financial assistance? Food [place], SSI (for daughter.) and Other (Health insurance, WIC.) Service Service? No Mental Health and Addiction Treatment Current/Past substance abuse? No Comments Alcohol: None Cigarettes/Tobacco: None. Cannabis/Edibles: None. Current/Past addictive behavior concerns? No Psychiatric history The patient reports that she currently attends counseling sessions every two weeks via Telehealth. She began counseling several years ago after her . Her therapist, Tonya Kingsley, is affiliated with [facility] at [place], located on [facility]. PT denies taking any psychotropic medications in the past year. Previously, she was prescribed trazodone for sleep and an unspecified medication for anxiety. However, these medications were discontinued as she did not observe significant progress, and she managed her symptoms independently. PT has been diagnosed with anxiety and depression. She reports experiencing depression (PPD) after the of her daughter. She encounters challenges when in crowded environments or when she feels she cannot escape. During episodes of anxiety, she becomes very fidgety, shakes, and often prefers to avoid social events. PT denies having ever experienced panic attacks. She also denies any history of hospitalization for mental health reasons or needing crisis support. PT has not engaged in any higher level of care beyond outpatient services. She reports no history of suicidal ideation (SI), suicide attempts (SA), self-harm, or harm to others. Medical and Physical Health Summary Additional Medical History not covered in history PCOS. Sexual History concerns None reported Physical exam in the last year? Yes Pain Screening Current pain? No Pain in the last few months? No Medications Is the patient compliant with medications? Yes Does the patient have Johnson Guardian in place? Not applicable Does the patient use complimentary health approaches? No Trauma/Abuse History History of trauma? No Questionnaires PHQ-9 Over the last 2 weeks, how often have you been bothered by any of the following problems? 1. Little interest or pleasure in doing things: not at all 2. Feeling down, depressed, or hopeless: not at all 3. Trouble falling or staying asleep, or sleeping too much: several days 4. Feeling tired or having little energy: several days 5. Poor appetite or overeating: several days 6. Feeling bad about yourself - or that you are a failure or have let yourself or your family down: not at all 7. Trouble concentrating on things, such as reading the newspaper or watching television: not at all 8. Moving or speaking so slowly that other people could have noticed. Or the opposite - being so fidgety or restless that you have been moving around a lot more than usual: not at all 9. Thoughts that you would be better off or of hurting yourself in some way: not at all Total score: 3 Depression Screening Interpretation: Negative (From new PT pack. New one will be administered at next visit.) Depression Screening Done: Yes Source: Developed by Drs. Johnny Mcgregor, Mindy Rodriguez, Dontae Smith and colleagues, with an educational iker from [employer] Binge Eating Scale Group 1 A. I don't feel self-conscious about my wt. or body size when I'm with others. B. I feel concerned about how I look to others, but it normally does not make me fell disappointed with myself C. I do get self-conscious about my appearance and wt. which makes me feel disappointed in myself. D. I feel very self-conscious about my wt. and frequently I feel intense shame and disgust for myself. I try to avoid social contacts because of my self- consciousness. Response Group 1: D Group 2 A. I don't have any difficulty eating slowly in the proper manner. B. Although I seem to gobble down foods, I don't end up feeling stuffed because of eating to much. C. At times, I tend to eat quickly and then, I feel uncomfortably full afterwards. D. I have the habit of bolting down my food, without really chewing it. When this happens I usually feel uncomfortably stuffed because I've eaten to much. Response Group 2: A Group 3 A. I feel capable to control my eating urges when I want to. B. I feel like I have failed to control my eating more than the average person. C. I feel utterly helpless when it comes to feeling in control of my eating urges. D. Because I feel so helpless about controlling my eating I have become very desperate about trying to get control. Response Group 3: A Group 4 A. I don't have the habit of eating when I'm bored. B. I sometimes eat when I'm bored, but often I'm able to get busy and get my mind off food. C. I have a regular habit of eating when I'm bored, but occasionally, I can use some other activity to get my mind off eating. D. I have a strong habit of eating when I'm bored. Nothing seems to help me breath the habit. Response Group 4: A Group 5 A. I'm usually physically hungry when I eat something. B. Occasionally, I eat something on impulse even though I really am not hungry. C. I have the regular habit of eating foods, that I might not really enjoy, to satisfy a hungry feeling even though physically, I don't need the food. D. Although I'm not physically hungry, I get a hungry feeling in my mouth that only seems to be satisfied when I eat a food, like sandwich, that fills my mouth. Sometimes, when I eat the food to satisfy my mouth hunger, I then spit the food out so I won't gain weight. Response Group 5: A Group 6 A. I don't feel any guilt or self-hate after I overeat. B. After I overeat, occasionally I feel guilt or self-hate. C. Almost all the time I experience strong guilt or self-hate after I overeat. Response Group 6: A Group 7 A. I don't lose total control of my eating when dieting even after periods when I overeat. B. Sometimes when I eat a forbidden food on a diet, I feel like I blew it and eat even more. C. Frequently, I have the habit of saying to myself, I've blown it now, why not go all the way, when I overeat on a diet. When that happens I eat more. D. I have a regular habit of starting a strict diets for myself but I break the diets by going on an eating binge. My life seems to be either a feast or famine. Response Group 7: A Group 8 A. I rarely eat so much food that I feel uncomfortably stuffed afterwards. B. Usually about once a month, I each such a quantity of food, I end up feeling very stuffed. C. I have regular periods during the month when I eat large amounts of food, either at mealtime or at snacks. D. I eat so much food that I regularly feel quite uncomfortable after eating and sometimes a bit nauseous. Response Group 8: A Group 9 A. My level of calorie intake does not go up very high or go down very low on a regular basis. B. Sometimes after I overeat, I will try to reduce my caloric intake to almost nothing to compensate for the excess calories I've eaten. C. I have a regular habit of overeating during the night. It seems that my routine is not to be hungry in the morning but overeat in the evening. D. In my adult years, I have had week-long periods where I practically starve myself. This follows periods when I overeat. It seems I live a life of either feast or famine. Response Group 9: A Group 10 A. I usually am able to stop eating when I want to. I know when enough is enough. B. Every so often, I experience a compulsion to eat which I can't seem to control. C. Frequently, I experience strong urges to eat which I seem unable to control, but at other times I can control my eating urges. D. I feel incapable of controlling urges to eat. I have a fear of not being able to stop eating voluntarily. Response Group 10: A Group 11 A. I don't have any problem stopping eating when I feel full. B. I usually can stop eating when I feel full but occasionally overeat leaving me feeling uncomfortably stuffed. C. I have a problem stopping eating once I start and usually I feel uncomfortably stuffed after I eat a meal. D. Because I have a problem not being able to stop eating when I want, I sometimes have to induce vomiting to relieve my stuffed feeling. Response Group 11: A Group 12 A. I seem to eat just as much when I'm with others, Family social gatherings as when I'm by myself. B. Sometimes, when I'm with other persons, I don't eat as much as I want to eat because I'm self-conscious about my eating. C. Frequently, I eat only a small amount of food when others are present, because I'm very embarrassed about my eating. D. I feel so ashamed about overeating that I pick times to overeat when I know no one will see me. I feel like a closet eater. Response Group 12: A Group 13 A. I eat three meals a day with only an occasional between meal snack. B. I eat 3 meals a day, but I also normally snack between meals. C. When I am snacking heavily, I get in the habit of skipping regular meals. D. There are regular periods when I seem to be continually eating, with no planned meals. Response Group 13: A Group 14 A. I don't think much about trying to control unwanted eating urges. B. At least some of the time, I feel my thoughts are pre-occupied with trying to control my eating urges. C. I feel that frequently I spend much time thinking about how much I ate or about trying not to eat anymore. D. It seems to me that most of my waking hours are pre-occupied by thoughts about eating or not eating. I feel like I'm constantly struggling not to eat. Response Group 14: A Group 15 A. I don't think about food a great deal. B. I have strong craving for food but they last only for brief periods of time. C. I have days when I can't seem to think about anything else but food. D. Most of my days seem to be pre-occupied with thoughts about food. I feel like I live to eat. Response Group 15: A Group 16 A. I usually know whether or not I'm physically hungry. I take the right portion of food to satisfy me. B. Occasionally, I feel uncertain about knowing whether or not I'm physically hungry. A these times it's hard to know how much food I should take to satisfy me. C. Even though I might know how many calories I should eat, I don't have any idea what is a normal amount of food for me. Response Group 16: A Binge Eating Score: 3 Score less than 17 Minimal Risk Score between 18-26 Moderate Risk Score between 27-46 High Risk Assessment & Plan Assessment & Plan (1) Adjustment disorder with mixed anxiety and depressed mood: Code(s): F43.23 - Adjustment disorder with mixed anxiety and depressed mood Plan The patient has not been cleared yet and will return in two weeks to continue the assessment. A new PHQ-9 will be administered prior to completing the assessment. Next appointment: 10/16/2024 at 11:00 AM (Telehealth). Telehealth Telehealth Telehealth Platform: [facility] Location of provider rendering services: other Location of patient: address on file Patient Identification confirmed using: Name, : Yes Telehealth method: video Patient verbally consented to treatment: Yes Patient verbally consented to billing insurance company: Yes Patient informed of any privacy concerns related to visit: Yes Minutes spent on Phone/Video with Pt.: 60 Coding Level of Care Code New Pt Tele Psy Diag Eval (98127) Patient Type New Diagnoses Adjustment disorder with mixed anxiety and depressed mood F43.23 Time Spent (min) 60
--- OUTSIDE RECORDS SUMMARY | 2024-10-02 13:24 | XMS_ITS | Encounter Summary ---
Author Organization [employer] Address [address] [place] [address] Care Team Providers Care Vision Rehabilitation Therapist Name Role Phone Sarah Bradley MD Primary Care Provide r Encounter Details Date Type Department Care Team ([facility] st Contact Info) Description 08/05/2024 Orders Only [facility] External Provider, [facility] Social History Tobacco Use Types Packs/Day Years Used Date Smoking Tobacco: Never Passive Smoke Exposure: Never Smokeless Tobacco: Never Alcohol Use Standard Drinks/Week Comments Defer 0 (1 standard drink = 0.6 oz pur e alcohol) Depression Answer Date Recorded Patient Health Questionnaire-9 Score 0 02/19/2024 Patient Health Questionnaire-9 Score 0 02/19/2024 Last PHQ-9: Questionnaire Data Not on file 0 02/19/2024 Housing Stability Answer Date Recorded What is your housing situation today? I have byron lewis 02/06/[address] you li ve. Do you have problems with any of the following? None of the above 02/06/2024 Food Insecurity Answer Date Recorded Within the past 12 months, y ou worried that your food would run out before you got money to buy more: Never True 02/06/2024 Within the past 12 months,th e food you bought just didn't last and you didn't have enough money to get more: Never True 12/2023 Transportation Answer Date Recorded In the past 12 months, has l ack of transportation kept you from medical appts, meetings, work or from getting things needed for daily living? No 02/06/2024 Utilities Answer Date Recorded In the past 12 months, has t he electric, gas, oil or water company threatened to shut off services in your home? No 02/06/2024 Depression Answer Date Recorded Patient Health Questionnaire-2 Score 0 02/19/2024 Comments No Sex and Gender Information Value Date Recorded Sex Assigned at Female 07/04/2022 10:20 AM EDT Legal Sex Female 10:20 AM EDT Gender Identity Female 07/04/2022 10:20 AM EDT Sexual Orientation Choose not to disclose 2021 10:20 AM EDT documented as of this encounter Plan of Treatment Not on file documented as of this encounter Procedures Procedure Name Priority Date/Time Associated Diagnosis Comments CT ABDOMEN PELVIS WO CONTRAST Routine 08/05/2024 8:02 AM EST documented in this encounter Results * CT Abdomen Pelvis w/o Contrast (08/05/2024 8:02 AM EST) Anatomical Region Laterality Modality Body, Pelvis, Abdomen Computed T omography 08/05/2024 8:02 AM EST Narrative 09/16/2024 1:12 PM EST ? [facility] ?[address] ?[place] [address] ? CT Scan Report ? Signed ? Patient: Sarah Sheikh I ?MR#: [id number] ?? [id number] ? : 1985 ?Acct:[id number] ? Age/Sex: 39 / F ?ADM Date: 08/05/24 ? Loc: HO.CT ? Attending Dr: Osbaldo Herron MD ? Ordering Physician: Osbaldo Herron MD ?? Date of Service: 08/05/24 ?? Procedure(s): CT abdomen pelvis wo IV con ?? Accession Number(s): [id number] ? cc: Sarah Bradley MD; Osbaldo Herron MD ? Report Number: ?? [id number]: Total DLP = ??870.00 mGy-cm ?? EXAMINATION: ?? CT ABDOMEN AND PELVIS WITHOUT CONTRAST ? CLINICAL INFORMATION: ?? Ventral hernia without obstruction. ? COMPARISON: ?? CT dated July 19, 2021 ? TECHNIQUE: ?? Multidetector volumetric imaging was performed from the superior aspect ?? of the liver through the pubic symphysis. Sagittal and coronal ?? reformatted images were obtained on the technologist's workstation. ? This CT examination was performed using dose optimization techniques as ?? appropriate, variously including the following: ?? *Automated exposure control ?? *Adjustment of mA and/or kV according to patient size (this includes ?? techniques or standardized protocols for targeted exams where dose is ?? matched to indication/reason for exam; i.e. extremities or head) ?? *Use of iterative reconstruction technique. ?? DLP: 870 mGy centimeters ? FINDINGS: ? Submitted for interpretation on September 16, 2024. ? Inadequate evaluation of the intra-abdominal organs and vascular ?? structures due to lack of IV contrast. ?? LUNG BASES: Linear attenuation, anterior left lung base. ? LIVER, GALLBLADDER, AND BILIARY TREE: Liver measures 19 cm with ?? decreased attenuation. No pericholecystic fluid collection or ?? gallbladder wall thickening. ?? No intrahepatic or extrahepatic biliary ductal dilatation. ? PANCREAS: No peripancreatic fluid collections. No main pancreatic ?? ductal dilatation. ? SPLEEN: 10 cm. ? ADRENAL GLANDS: No nodular lesions. ? KIDNEYS AND URETERS: There is a 6 mm hyperdensity in the anterior lower ?? pole left kidney. No hydronephrosis or nephrolithiasis. ? BLADDER: Fluid-filled nearly collapsed. ? GASTROINTESTINAL TRACT: ? Appendix is normal. ?? Abundant stool, large intestine. ?? No intestinal obstruction pattern. ?? No ascites. ?? No pneumoperitoneum. ?? No pneumatosis intestinalis. ? ABDOMINAL WALL: Diastases abdominal rectus muscles in the periumbilical ?? region. ? LYMPH NODES: Nonspecific prominent lymph nodes in the mesenteric and ?? retroperitoneum. ? VASCULAR: No aneurysm, abdominal aorta. ? PELVIC VISCERA: Inadequate evaluation. ? OSSEOUS STRUCTURES: Spondylosis, L5-S1. Pseudoarthrosis of the left ?? transverse process of L5 with S1. ? CT/CT abdomen pelvis wo IV con ?? IMPRESSION: ?? Diastases abdominal rectus muscles in the periumbilical region. ?? Hepatomegaly and steatosis. ?? Questionable hyperdensity lesion lower pole left kidney. ?? 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 ? Fleischner guidelines were followed. ? Electronically signed by: ??Sky Villalobos MD ??09/16/2024 01:09 PM ?? EST RP ? Dictated By: ?Sky Stinson MD ? Signed By: ?<Electronically signed by Sky Chahal MD in OV> ? 09/16/24 1309 ? DD/ 0802 ? TD/TT: 08/05/24 0806 ? Fire Investigator: ? Procedure Note Donotuseinterpreter, Image - 09/16/[address] [place] [id number] [address] Scan Report Signed Patient: Sarah Sheikh IMR#: [id number] : 1985Acct:[id number] Age/Sex: 39 / FADM Date: 08/05/24 Loc: HO.CT Attending Dr: Osbaldo Herron MD Ordering Physician: Osbaldo Herron MD Date of Service: 08/05/24 Procedure(s): CT abdomen pelvis wo IV con Accession Number(s): [id number] cc: Sarah Bradley MD; Osbaldo Herron MD Report Number: [id number]: Total DLP = 870.00 mGy-cm EXAMINATION: CT ABDOMEN AND PELVIS WITHOUT CONTRAST CLINICAL INFORMATION: Ventral hernia without obstruction. COMPARISON: CT dated July 19, 2021 TECHNIQUE: Multidetector volumetric imaging was performed from the superior aspect of the liver through the pubic symphysis. Sagittal and coronal reformatted images were obtained on the technologist's workstation. This CT examination was performed using dose optimization techniques as appropriate, variously including the following: *Automated exposure control *Adjustment of mA and/or kV according to patient size (this includes techniques or standardized protocols for targeted exams where dose is matched to indication/reason for exam; i.e. extremities or head) *Use of iterative reconstruction technique. DLP: 870 mGy centimeters FINDINGS: Submitted for interpretation on September 16, 2024. Inadequate evaluation of the intra-abdominal organs and vascular structures due to lack of IV contrast. LUNG BASES: Linear attenuation, anterior left lung base. LIVER, GALLBLADDER, AND BILIARY TREE: Liver measures 19 cm with decreased attenuation. No pericholecystic fluid collection or gallbladder wall thickening. No intrahepatic or extrahepatic biliary ductal dilatation. PANCREAS: No peripancreatic fluid collections. No main pancreatic ductal dilatation. SPLEEN: 10 cm. ADRENAL GLANDS: No nodular lesions. KIDNEYS AND URETERS: There is a 6 mm hyperdensity in the anterior lower pole left kidney. No hydronephrosis or nephrolithiasis. BLADDER: Fluid-filled nearly collapsed. GASTROINTESTINAL TRACT: Appendix is normal. Abundant stool, large intestine. No intestinal obstruction pattern. No ascites. No pneumoperitoneum. No pneumatosis intestinalis. ABDOMINAL WALL: Diastases abdominal rectus muscles in the periumbilical region. LYMPH NODES: Nonspecific prominent lymph nodes in the mesenteric and retroperitoneum. VASCULAR: No aneurysm, abdominal aorta. PELVIC VISCERA: Inadequate evaluation. OSSEOUS STRUCTURES: Spondylosis, L5-S1. Pseudoarthrosis of the left transverse process of L5 with S1. CT/CT abdomen pelvis wo IV con IMPRESSION: Diastases abdominal rectus muscles in the periumbilical region. Hepatomegaly and steatosis. Questionable hyperdensity lesion lower pole left kidney. 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 Fleischner guidelines were followed. Electronically signed by: Sky Villalobos MD 09/16/2024 01:09 PM [facility] Dictated By: Sky Stinson MD Signed By: <Electronically signed by Sky Chahal MDin OV> 09/16/24 1309 DD/ 0802 TD/TT: 08/05/24 0806 Fire Investigator: [facility] External Provider IMG CT PROCEDURES Edited Result - Final documented in this encounter Visit Diagnoses Not on filedocumented in this encounter Additional Health Concerns Assessment Noted Time PHQ-9 Depression Total Score: 0 02/19/20 24 1:15 PM EDT documented as of this encounter Care Teams Vision Rehabilitation Therapist Relationship Specialty Start Date End Date Sarah Bradley MD [address] [place] [id number] PCP - General Family Medicine 06/22/18 Aisha Savage Instructor Adjunct Pharmacy TechnicianRetort Feeder Ground Bone 04/11/24 documented as of this encounter
--- OUTSIDE RECORDS SUMMARY | 2024-10-02 13:24 | XMS_ITS | Encounter Summary ---
Author Organization [employer] Address [address] [facility] [address] [place] [address] Care Team Providers Care Anesthesiologist And Critical Care Name Role Phone Sarah Bradley MD Primary Care Provide r Encounter Details Date Type Department Care Team ([facility] st Contact Info) Description 06/07/2023 Abstract [facility] MEDICINE [address] [place] [address] Sarah Bradley MD [address] [place] [address] Social History Tobacco Use Types Packs/Day Years Used Date Smoking Tobacco: Never Smokeless Tobacco: Never Alcohol Use Standard Drinks/Week Comments Defer 0 (1 standard drink = 0.6 oz pur e alcohol) Depression Answer Date Recorded Patient Health Questionnaire-9 Score 0 01/17/2023 Depression Answer Date Recorded Patient Health Questionnaire-2 Score 0 01/17/2023 Comments No Sex and Gender Information Value [...] Procedure Name Priority Date/Time Associated Diagnosis Comments COLPOSCOPY Routine 12/29/2020 HM PAP/HPV Routine 12/03/2020 documented in this encounter Results * Colposcopy (12/29/2020) us Historical Provider IN CLINIC/BEDSIDE ORDERAB LES Final Result * (ABNORMAL) Pap Smear (12/03/2020) Pap Epithelial cell abnormality(A ) Negative for intraephithelial lesion or malignancy, Other Comment:ASCUS HPV Detected Historical Provider HEALTH MAINTENANCE Final Result documented in this encounter Visit Diagnoses Not on filedocumented in this encounter Additional Health Concerns Assessment Noted Time PHQ-9 Depression Total Score: 0 01/18/20 23 10:22 AM EDT documented as of this encounter Care Teams Anesthesiologist And Critical Care Relationship Specialty Start Date End Date Sarah Bradley MD [address] [place] [address] PCP - General Family Medicine 06/22/18 Aisha Savage Product Safety Compliance LeaderVibrating Screed Operator 04/11/24 documented as of this encounter
--- OUTSIDE RECORDS SUMMARY | 2024-10-02 13:24 | XMS_ITS | Encounter Summary ---
Author Organization [employer] Address [address] [place] [address] Care Team Providers Care Fish And Game Warden Name Role Phone Sarah Bradley MD Primary Care Provide r Reason for Visit * Reason Onset Date Comments PT1 03/22/2024 Encounter Details Date Type Department Care Team ([facility] Contact Info) Description 03/22/2024 Telephone [facility] MEDICINE [address] [place] [address] Sarah Bradley MD [address] [place] [address] PT1 Social History Tobacco Use Types Packs/Day Years [...] AM EDT documented as of this encounter Miscellaneous Notes * Telephone Encounter - Sonya Townsend - 03/22/2024 10:58 AM EDT Patient calling requesting PT1 Home Address verified: Y/N: Yes Provider name or facility name: [facility] Facility Address: [address] [place] [address] Escort needed: Y/N: No Do you have a wheelchair: Y/N: No If yes- Manual or electric: n/a Visits; all future visits documented in this encounter Plan of Treatment Not on file documented as of this encounter Visit Diagnoses Not on filedocumented in this encounter Additional Health Concerns Assessment Noted Time PHQ-9 Depression Total Score: 0 02/19/20 1:15 PM EDT documented as of this encounter Care Teams Fish And Game Warden Relationship Specialty Start Date End Date Sarah Bradley MD [address] [place] [address] PCP - General Family Medicine 06/22/18 Aisha Savage Sharepoint Application ArchitectPyrotechnic Assembler 04/11/24 documented as of this encounter
--- OUTSIDE RECORDS SUMMARY | 2024-10-02 13:24 | XMS_ITS | Encounter Summary ---
Author Organization [employer] Address [address] [place] [address] Care Team Providers Care Sand Mixer Operator Name Role Phone Sarah Bradley MD Primary Care Provide r Encounter Details Date Type Department Care Team ([facility] st Contact Info) Description 03/22/2023 Abstract [facility] MEDICINE [address] [place] [address] Sarah Bradley MD [address] [place] [address] Social History Tobacco Use Types Packs/Day Years [...] not to disclose 2021 10:20 AM EDT COVID-19 Exposure Response Date Recorded In the last 10 days, have yo u been in contact with someone who was confirmed or suspected to have Coronavirus/COVID-19? No / Unsure 03/02/2023 8:05 AM EDT documented as of this encounter Plan of Treatment Not on file documented as of this encounter Visit Diagnoses Not on filedocumented in this encounter Additional Health Concerns Assessment Noted Time PHQ-9 Depression Total Score: 0 01/18/20 23 10:22 AM EDT documented as of this encounter Care Teams Sand Mixer Operator Relationship Specialty Start Date End Date Sarah Bradley MD [address] [place] [address] PCP - General Family Medicine 06/22/18 Aisha Savage Disability ManagerResearch Computing Specialist 04/11/24 documented as of this encounter
--- OUTSIDE RECORDS SUMMARY | 2024-10-02 13:24 | XMS_ITS | Encounter Summary ---
Author Organization [employer] Address [address] [facility] [place] [address] Care Team Providers Care Motivational Speaker Name Role Phone Sarah Bradley MD Primary Care Provide r Encounter Details Date Type Department Care Team (Late st Contact Info) Description 09/30/2024 Orders Only GENERIC EXTERNAL DATA DEPARTMENT Provider, Generic External Data Social History Tobacco Use Types Packs/Day Years [...] Procedure Name Priority Date/Time Associated Diagnosis Comments XR CHEST 2 VIEWS Routine 09/30/2024 9:09 AM EST VITAMIN D,25-OH,TOTAL,IA Routine 09/30/2024 9:07 AM EST VITAMIN B12/FOLATE, SERUM PANEL Routine 09/30/2024 9:07 AM EST TSH W/REFLEX TO FT4 Routine 09/30/2024 9 :07 AM EST CBC WITH AUTO DIFFERENTIAL Routine 09/30/2024 9:07 AM EST IRON AND TOTAL IRON BINDING CAPACITY Routine 09/30/2024 9:07 AM EST INSULIN Routine 09/30/2024 9:07 AM EST C-REACTIVE PROTEIN Routine 09/30/2024 9: 07 AM EST HEMOGLOBIN A1C Routine 09/30/2024 9:07 AM EST FERRITIN Routine 09/30/2024 9:07 AM EST LIPID PANEL, STANDARD Routine 09/30/2024 9:07 AM EST COMPREHENSIVE METABOLIC PANEL Routine 09/30/2024 9:07 AM EST documented in this encounter Results * XR Chest 2 Views (09/30/2024 9:09 AM EST) Anatomical Region Laterality Modality Chest Radiographic Anai ging 09/30/2024 9:09 AM EST Narrative 09/30/2024 10:16 AM EST ? [facility] ?[address] ?[place], [place] [address] ?XRay Report ? Signed ? Patient: Aguilar,Sarah I ?MR#: [id number] ?? [id number] ? : 1985 ?Acct:[id number] ? Age/Sex: 39 / F ?ADM Date: 09/30/24 ? Loc: HO.XRAY ? Attending Dr: Parmjit Caraballo MD ? Ordering Physician: Parmjit Caraballo MD ?? Date of Service: 09/30/24 ?? Procedure(s): XR chest 2V ?? Accession Number(s): [id number] ? cc: Sarah Bradley MD; Parmjit Caraballo MD ? EXAMINATION: ?? XR CHEST ? CLINICAL INFORMATION: ?? E66.9 - Obesity, unspecified ? COMPARISON: ?? Chest x-ray 03/04/2023 ? TECHNIQUE: ?? 2 views of the chest were obtained. ? FINDINGS: ?? No significant abnormality is noted involving the heart, lungs, ?? mediastinum, bony thorax or soft tissues. ? XR/XR chest 2V ?? IMPRESSION: ?? Unremarkable chest examination. ? Electronically signed by: ??Sid Burk MD ??09/30/2024 10:13 AM EST RP ? Dictated By: ?Sid Burk MD ? Signed By: ?<Electronically signed by Sid Burk MD in OV> ?09/30/24 1013 ? DD/ 0909 ? TD/TT: 09/30/24 0919 ? Pinion And Wheel Truer: MSM ? Procedure Note Mervin, Image - 09/30/[address] [address] XRay Report Signed Patient: Sarah Sheikh [facility]#: [id number] : 1985Acct:[id number] Age/Sex: 39 / FADM Date: 09/30/24 Loc: [facility] Attending Dr: Parmjit Caraballo MD Ordering Physician: Parmjit Caraballo MD Date of Service: 09/30/24 Procedure(s): XR chest 2V Accession Number(s): [id number] cc: Sarah Bradley MD; Parmjit Caraballo MD EXAMINATION: XR CHEST CLINICAL INFORMATION: E66.9 - Obesity, unspecified COMPARISON: Chest x-ray 03/04/2023 TECHNIQUE: 2 views of the chest were obtained. FINDINGS: No significant abnormality is noted involving the heart, lungs, mediastinum, bony thorax or soft tissues. XR/XR chest 2V IMPRESSION: Unremarkable chest examination. Electronically signed by: Sid Burk MD 09/30/2024 10:13 AM EST Dictated By: Sid Burk MD Signed By: <Electronically signed by Sid Burk MD in OV> 09/30/24 1013 DD/ 0909 TD/TT: 09/30/24 09 [employer] Wheel [employer]er: [facility] [employer] External Provider IMG XR PROCEDURES Edited Result - Final * Insulin (09/30/2024 9:07 AM EST) Pathologist [facility] [place] Insulin 18 2 - 29 uU/mL [facility] Comment:This test was perfor med using the Urena chemiluminescentmethod. Values obtained from different assay methods cannot beused interchangeably. This insulin assay shows a possiblecross-reactivity with antibodies generated against insulin(immunoreactive insulin and some patients treated withbovine or porcine insulin). Insulin levels may be measuredlower in patients with insulin autoimmune syndrome orfamilial high pro-insulinemia. 09/30/2024 9:07 AM EST 09/30/2024 9:07 AM EST Generic External Data Provider LAB BLOOD ORDERAB LES Final Result [facility] [address] [place] [phone] * TSH with Reflex to Free T4 (09/30/2024 9:07 AM EST) TSH reflex Free T4 1.27 0.32 - 4.0 uIU/mL [facility] 09/30/2024 9:07 AM EST 09/30/2024 9:07 AM EST Generic External Data Provider LAB BLOOD ORDERAB LES Final Result Performing Organization Address City/[facility]/ZIP Co de Phone Number [facility] [address] [place] [phone] * (ABNORMAL) Vitamin D, 25-Hydroxy, Total, Immunoassay (09/30/2024 9:07 AM EST) Pathologist [facility] [place] Vitamin D 25-OH Total 22.6(L) >30 ng/mL [facility] Comment:Health Based Referen ce Values*< 20 ng/mL Whnyorcxj43-68 ng/mL Insufficient> 30 ng/mL Sufficient*Red ODONNELL. N Engl J Med. 2007;357:266-280Care must be taken in interpreting Vitamin D results fromdifferent laboratories and methodologies. Published datademonstrated that results from patients undergoinghemodialysis may show a negative bias when tested withvarious automated 25-OH vitamin D assays when compared toLC-MS/MS.When testing samples from patients whose predominant form ofVitamin D is Vitamin D2, such as patients receiving VitaminD2 supplementation, results that are subtherapeutic shouldbe confirmed with another method such as LC-MS/MS. 09/30/2024 9:07 AM EST 09/30/2024 9:07 AM EST Generic External Data Provider LAB BLOOD ORDERAB LES Final Result Performing Organization Address City/[facility]/ZIP Co de Phone Number [facility] [address] [place] [phone] * Ferritin (09/30/2024 9:07 AM EST) Ferritin 10 10 - 122 ng/mL [facility] 09/30/2024 9:07 AM EST 09/30/2024 9:07 AM EST Generic External Data Provider LAB BLOOD ORDERAB LES Final Result Performing Organization Address [facility] Co de Phone Number [facility] [address] [place] [phone] * Vitamin B12 (Cobalamin) and Folate Panel, Serum (09/30/2024 9:07 AM EST) Vitamin B12 508 200 - 900 pg/mL [facility] Comment:NORMAL 200-900 PG/ML INDETERMINATE 160-199 PG/ML DEFICIENT < 160 PG/ML Folate 13.1 > or = 4.0 ng/mL [facility] Comment:Reference Values:> o r = 4.0 ng/mL< 4.0 ng/mL suggests folate deficiency Methotrexate, aminopterin and folinic acid(leucovorin) are chemotherapeutic agents whose molecularstructures are similar to folate; therefore, the Architectfolate assay cannot be used for patients using these drugs. 09/30/2024 9:07 AM EST 09/30/2024 9:07 AM EST Generic External Data Provider LAB BLOOD ORDERAB LES Final Result Performing Organization Address [facility] de Phone Number [facility] [address] [place] [phone] * (ABNORMAL) Lipid Panel, Standard (09/30/2024 9:07 AM EST) Triglycerides 150(H) <150 mg/dL [facility] Comment:Desirable Triglyceri de: less than 150 mg/dLBorderline High Triglyceride 150-199 mg/dLHigh Triglyceride: 200-499 mg/dLVery High Triglyceride: greater than or equal to 5OO mg/dL Cholesterol 170 <200 mg/dL [facility] Comment:Desirable Cholestero l: less than 200 mg/dLBorderline High Cholesterol: 200-239 mg/dLHigh Cholesterol: greater than 239 mg/dL LDL Cholesterol Calculated 101(H) <100 mg/dL [facility] Comment:Desirable LDL: less than 100 mg/dLNear Optimal/Above Optimal LDL: 110- 129 mg/dLBorderline High LDL: 130-159 mg/dLHigh LDL: 160-189 mg/dLVery High LDL: greater than or equal to 190 mg/dL HDL Cholesterol 39(L) >40 mg/dL [facility] Comment:Desirable HDL: great er than 40 mg/dL Note: This HDL assay may give artificially low results in patients with liver disease. 09/30/2024 9:07 AM EST 09/30/2024 9:07 AM EST Generic External Data Provider LAB BLOOD ORDERAB LES Final Result Performing Organization Address [facility] Co [place] Phone Number [facility] [address] [place] [phone] * C-reactive Protein (09/30/2024 9:07 AM EST) C Reactive Protein 0.47 < or = 0.50 mg/dL [facility] 09/30/2024 9:07 AM EST 09/30/2024 9:07 AM EST Generic External Data Provider LAB BLOOD ORDERAB LES Final Result Performing Organization Address [facility] Phone Number [facility] [address] [place] [phone] * (ABNORMAL) Iron And Total Iron Binding Capacity (09/30/2024 9:07 AM EST) Iron 33 30 - 160 mcg/dL [facility] Total Iron Binding Capacity 396 228 - 428 mcg/dL [facility] Percent Iron Saturation 8(L) 15 - 50 % [facility] Unsaturated Iron Binding 363 ug/dL [facility] 09/30/2024 9:07 AM EST 09/30/2024 9:07 AM EST Generic External Data Provider LAB BLOOD ORDERAB LES Final Result Performing Organization Address [facility]/ZIP Co de Phone Number [facility] [address] [place] [phone] * (ABNORMAL) Comprehensive Metabolic Panel (09/30/2024 9:07 AM EST) Pathologist [facility] Sodium 138 135 - 145 mmol/L [facility] Potassium 3.8 3.3 - 5.1 mmol/L [facility] Chloride 108 96 - 108 mmol/L [facility] Carbon Dioxide 26 22 - 29 mmol/L [facility] Anion Gap 8(L) 12 - 20 [facility] Urea Nitrogen (BUN) 27(H) 9 - 16 mg/dL [facility] Creatinine, Serum 0.70 0.5 - 1.4 mg/dL [facility] Estimated Glomerular Filt Rate >60 [facility] Comment:Chronic Kidney Disea se: Estimated GFR < 60 mL/min/[id number] Kidney Disease: Estimated GFR < 15 mL/min/1.73m2 Glucose 108 60 - 115 mg/dL [facility] Calcium 9.1 8.4 - 10.2 mg/dL [facility] Bilirubin, Total 0.3 0.0 - 1.0 mg/dL [facility] Aspartate Amino Transferase 22 5 - 31 U/L [facility] Alanine Aminotransferase 17 0 - 31 U/L [facility] Total Protein 8.4(H) 6.5 - 8.0 g/dL [facility] Albumin Level 4.4 3.5 - 5.0 g/dL [facility] Alkaline Phosphatase 74 39 - 117 U/L [facility] 09/30/2024 9:07 AM EST 09/30/2024 9:07 AM EST us Generic External Data Provider LAB BLOOD ORDERAB LES Final Result [facility] [address] [place] [phone] * Hemoglobin A1c (09/30/2024 9:07 AM EST) Pathologist [facility] Hemoglobin A1c 5.9 <6.0 % [facility] Comment:Hemoglobin A1C Refer ence Range Adults: 4.8 - 6.0 % Non diabetic: < 6.0 % Goal: < 7.0 %Additional Action Suggested: > 8.0 %Note: Hemoglobin A1c results are invalid for patients with abnormal amounts of HbF. Blood transfusions may impact the HbA1c concentration in the patient sample. Estimated Average Glucose 123 mg/dL [facility] Comment:eAG = Estimated ave rage glucose which is %A1C expressed asaverage glucose, using the formula of the [id number]-[id number] Glucose study (ADAG), Diabetes Care, Vol.31,#8,2007 09/30/2024 9:07 AM EST 09/30/2024 9:07 AM EST us Generic External Data Provider LAB BLOOD ORDERAB LES Final Result [facility] [address] [place] [phone] * (ABNORMAL) CBC auto differential (09/30/2024 9:07 AM EST) White Blood Count 6.8 4.8 - 10.8 X10*3/uL [facility] Red Blood Count 4.57 4.20 - 5.50 X10*6/uL [facility] Hemoglobin 11.5(L) 12.0 - 16.0 g/dl [facility] Hematocrit 37.5 37.0 - 47.0 % [facility] Mean Corpuscular Volume 82.1 80.0 - 98.0 fL [facility] Mean Corpuscular Hemoglobin 25.2(L) 27.0 - 33.0 pg [facility] Mean Corpuscular HGB Conc 30.7(L) 31.0 - 35.0 g/dl [facility] Red Cell Distribution Width 15.2 11.0 - 16.0 % [facility] Platelet Count 286 160 - 400 X10*3/uL [facility] Mean Platelet Volume 11.0 9.4 - 12.3 fL [facility] Neutrophils Percent Auto 70.2 45 - 73 % [facility] Imm Gran Pct Auto 0.4 0.0 - 0.4 % [facility] Lymphocytes Percent Auto 20.6 20 - 40 % [facility] Monocytes Percent Auto 6.1 2 - 11 % [facility] Eosinophils Percent Auto 2.3 0 - 4 % [facility] Basophils Percent Auto 0.4 0 - 2 % [facility] NRBC Pct Auto 0.0 0.0 - 0.2 /100WBC [facility] Neutrophils Absolute Auto 4.8 2.0 - 8.3 x10*3/uL [facility] Imm Gran Abs Auto 0.03 0.00 - 0.03 X10*3/uL [facility] Lymphocytes Absolute Auto 1.4 1.2 - 4.9 X10*3/uL [facility] Monocytes Absolute Auto 0.4 0.1 - 1.2 X10*3/uL [facility] Eosinophils Absolute Auto 0.2 0.0 - 0.4 X10*3/uL [facility] Basophils Absolute Auto 0.0 0.0 - 0.2 X10*3/uL [facility] NRBC Abs Auto 0.000 0.0 - 0.012 X10*3/uL [facility] 09/30/2024 9:07 AM EST 09/30/2024 9:07 AM EST us Generic External Data Provider LAB BLOOD ORDERAB LES Final Result [facility] [address] [place] [phone] documented in this encounter Visit Diagnoses Not on filedocumented in this encounter Additional Health Concerns Assessment Noted Time PHQ-9 Depression Total Score: 0 02/19/20 24 1:15 PM EDT documented as of this encounter Care Teams Motivational Speaker Relationship Specialty Start Date End Date Sarah Bradley MD [address] [place] [phone] PCP - General Family Medicine 06/22/18 Aisha Savage Car Cleaning SupervisorHooker On 04/11/24 documented as of this encounter
--- OUTSIDE RECORDS SUMMARY | 2024-10-02 13:24 | XMS_ITS | Encounter Summary ---
Author Organization [employer] Address [address] [facility] [address] [place] [address] Care Team Providers Care Supervisor Lime Name Role Phone Sarah Bradley MD Primary Care Provide r Encounter Details Date Type Department Care Team ([facility] st Contact Info) Description 01/27/2023 Abstract [facility] MEDICINE [address] [place] [address] Sarah Bradley MD [address] [place] [address] Social History Tobacco Use Types Packs/Day Years Used Date Smoking Tobacco: Never Smokeless Tobacco: Never Depression Answer Date Recorded Patient Health Questionnaire-9 Score 0 01/17/2023 Depression Answer Date Recorded Patient Health Questionnaire-2 Score 0 01/17/2023 Comments Unknown Sex and Gender Information Value Date Recorded [...] suspected to have Coronavirus/COVID-19? No / Unsure 01/17/2023 10:05 AM EDT documented as of this encounter Plan of Treatment Not on file documented as of this encounter Procedures Procedure Name Priority Date/Time Associated Diagnosis Comments HM PAP/HPV Routine 12/09/2021 12:00 AM EDT documented in this encounter Results * Hm Pap Smear (12/09/2021 12:00 AM EDT) us Historical Provider HEALTH MAINTENANCE Final Result documented in this encounter Visit Diagnoses Not on filedocumented in this encounter Additional Health Concerns Assessment Noted Time PHQ-9 Depression Total Score: 0 01/18/20 23 10:22 AM EDT documented as of this encounter Care Teams Supervisor Lime Relationship Specialty Start Date End Date Sarah Bradley MD [address] [place] [address] PCP - General Family Medicine 06/22/18 Aihsa Savage Electrical And Instrument EngineerCircuit Board Inspector 04/11/24 documented as of this encounter
--- OUTSIDE RECORDS SUMMARY | 2024-10-02 13:24 | XMS_ITS | Encounter Summary ---
Author Organization [employer] Address [address] [facility] [address] [place] [address] Care Team Providers Care Plant Buyer Name Role Phone Sarah Bradley MD Primary Care Provide r Encounter Details Date Type Department Care Team (Late st Contact Info) Description 03/22/2023 Orders Only [facility] MEDICINE [address] [place] [address] Provider, Historical, Social History Tobacco Use Types Packs/Day Years [...] Date/Time Associated Diagnosis Comments HM PAP/HPV Routine 02/21/2023 documented in this encounter Results * Hm Pap Smear (02/21/2023) us Historical Provider HEALTH MAINTENANCE Final Result documented in this encounter Visit Diagnoses Not on filedocumented in this encounter Additional Health Concerns Assessment Noted Time PHQ-9 Depression Total Score: 0 01/18/20 23 10:22 AM EDT documented as of this encounter Care Teams Plant Buyer Relationship Specialty Start Date End Date Sarah Bradley MD [address] [place] [address] PCP - General Family Medicine 06/22/18 Aisha Savage Command And Control Systems IntegratorWirer Maintenance 04/11/24 documented as of this encounter
--- OUTSIDE RECORDS SUMMARY | 2024-10-02 13:24 | XMS_ITS | Clinical Summary ---
Author Organization [facility] Address [address] [place] [address] Care Team Providers Care Hog Sticker Name Role Phone Unavailable Primary Care Provider [...]
--- OUTSIDE RECORDS SUMMARY | 2024-10-02 13:24 | XMS_ITS | Clinical Summary ---
Author Organization [employer] Address [address] [facility] [address] [place] [address] Care Team Providers Care Senior Product Manager Name Role Phone Sarah Bradley MD Primary Care Provide r Allergies Active Allergy Reactions Criticality Noted Date Comments Latex 09/01/2022 Medications Alcohol Swabs ([facility] Prep) 70 % pads PLEASE USE DIRECTED FOR FOUR TIMES DAILY BLOOD GLUCOSE MONITORING IN 2 Active Aspirin Low Dose 81 MG EC tablet TAKE 2 TABLETS BY MOUTH EVERY DAY 2 Active Blood Glucose Monitoring Suppl (FreeStyle [place] Lite) w/Device kit TEST 4 TIMES A DAY FASTING AND 2 HOURS AFTER MEALS *NC* 2 Active Pulmicort Flexhaler 90 MCG/ACT inhaler INHALE 2 PUFFS TWICE A DAY 2 Active butalbital-acetami nophen-caffeine 50-325-40 MG tablet take 1 - 2 tablet by oral route every 4 hours as needed not to exceed 6 tablets per 24hrs 1 Active Antacid Calcium Rich 500 MG chewable tablet CHEW 1 TAB BY MOUTH EVERY 12 HOURS NEEDED FOR DYSPEPSIA 2 Active cholecalciferol (Vitamin D-3) 25 MCG (1000 UT) capsule take 1 Capsule by Oral route every day 1 Active docusate sodium (Colace) 100 MG capsule TAKE 1 CAPSULE BY MOUTH TWICE A DAY 2 Active famotidine (Pepcid) 20 MG tablet TAKE 1 TABLET BY MOUTH EVERY DAY 2 Active FREESTYLE LITE test strip TEST 4 TIMES A DAY FASTING AND 2 HR AFTER MEALS 2 Active FreeStyle lancets USE TO TEST 4 TIMES DAILY FASTING AND 2 HOURS AFTER MEALS 2 Active 27-1 MG tablet TAKE 1 TABLET BY MOUTH EVERY DAY 2 Active pyridoxine (Vitamin B-6) 25 MG tablet TAKE 1 TABLET BY MOUTH EVERY 8 HOURS 2 Active simethicone (Mylicon) 80 MG chewable tablet CHEW AND SWALLOW 1 TABLET BY MOUTH 3 TIMES A DAY NEEDED FOR GAS 2 Active montelukast (Singulair) 10 MG tablet take 1 tablet by oral route every day in the evening 2 Active acetaminophen (Tylenol) 325 MG tabletIndications: Back pain, unspecified back location, unspecified back pain laterality, unspecified chronicity,Migrain e without status migrainosus, not intractable, unspecified migraine type TAKE 1-2 TABLETS BY MOUTH EVERY 6 HOURS NEEDED 90 tablet 1 3 Active clotrimazole (Lotrimin) 1 % creamIndications:T oe web intertrigo Apply topically 2 times daily. 30 g 3 Active fenofibrate micronized (Antara) 43 MG capsuleIndications :Hypertriglyceride ramya Take 1 capsule (43 mg) by mouth with breakfast. 30 capsule 11 3 Active ibuprofen 800 MG tabletIndications: Migraine without aura, not refractory TAKE 1/2-1 TABLET BY MOUTH EVERY 8 HOURS NEEDED 30 tablet 2 3 Active amitriptyline (Elavil) 50 MG tabletIndications: Migraine without aura, not refractory Take 1 tablet (50 mg) by mouth at bedtime. 90 tablet 4 Active sertraline (Zoloft) 50 MG tabletIndications: Mixed anxiety and depressive disorder Take 1 tablet (50 mg) by mouth in the morning. 90 tablet 1 4 Active phentermine 15 MG capsuleIndications :Class 2 severe obesity due to excess calories with serious comorbidity and body mass index (BMI) of 37.0 to 37.9 in adult ([facility]) Take 1 capsule (15 mg) by mouth before breakfast. 30 capsule 4 Active loratadine (Claritin) 10 MG tabletIndications: Uncomplicated asthma, unspecified asthma severity, unspecified whether persistent TAKE 1 TABLET BY MOUTH EVERY DAY NEEDED FOR ALLERGIES 90 tablet 1 4 Active diphenhydrAMINE (BENADryl) 25 MG tabletIndications: 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 Take 1 tablet (25 mg) by mouth every 6 (six) hours if needed for itching. 30 tablet 4 Active albuterol (Ventolin HFA) 108 (90 Base) MCG/ACT inhalerIndications :Uncomplicated asthma, unspecified asthma severity, unspecified whether persistent inhale 2 puff by inhalation route every 4 - 6 hours as needed 18 g 3 4 Active pravastatin (Pravachol) 40 MG tabletIndications: Dyslipidemia Take 1 tablet (40 mg) by mouth Once per day. 30 tablet 11 4 025 Active betamethasone, augmented, (Diprolene) 0.05 % ointmentIndication s:Hand dermatitis,Allergi c contact dermatitis, unspecified trigger Apply topically 2 times daily. 50 g 1 4 Active levothyroxine (Synthroid) 137 MCG tabletIndications: Acquired hypothyroidism Take 137 mcg by mouth before breakfast. 90 tablet 3 4 025 Active metFORMIN (Glucophage) 500 MG tabletIndications: Impaired glucose tolerance test TAKE ONE TABLET BY MOUTH IN THE MORNING AND ONE TABLET IN THE EVENING. 180 tablet 1 4 Active NIFEdipine CC (Adalat CC) 60 MG 24 hr tabletIndications: Primary hypertension TAKE 1 TABLET BY MOUTH EVERY MORNING. DO NOT CRUSH, CHEW OR SPLIT. 90 tablet 1 4 Active Active Problems Problem Noted Date Diagnosed Date PCOS (polycystic ovarian syndrome) 05/21/2024 H/O gestational diabetes mellitus, not currently 05/21/2024 Rash due to allergy 02/19/2024 Class 2 severe obesity due t o excess calories with serious comorbidity in adult 10/16/2023 Assessment & Plan (11/13/2023 2:11 PM EDT): Today extensive discussion was done about life style modifications I advise healthy diet (low calorie) and cardiovascular exercise Start pheniramine Assessment & Plan (10/16/2023 4:42 PM EST): Today extensive discussion was done about life style modifications I advise healthy diet (low calorie) and cardiovascular exercise Now that her TSH is stable I will prescribe phentermine RTC 4 weeks televisit Mild asthma with exacerbation 07/11/2023 PCB (post coital bleeding) 07/11/2023 Dental caries 03/03/2023 Gestational diabetes mellitus (GDM), 01/17/2023 Toe web intertrigo 01/17/2023 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 01/17/2023 Assessment & Plan (05/21/2024 3:28 PM EDT): Patient has a dermatology appointment on 06/07/2024 Weight gain 01/17/2023 Assessment & Plan (01/17/2023 11:28 AM EDT): Blood work ordered including TSH RTC 6 weeks to review labs and possible prescription for pheniramine Anemia 09/01/2022 Chronic diarrhea 09/01/2022 Constipation 09/01/2022 Frequent headaches 09/01/2022 Gastritis 09/01/2022 Hernia of anterior abdominal wall 09/01/2022 Umbilical hernia 09/01/2022 Hypertension 09/01/2022 Overview (09/01/2022): Pt reports at OBI visit that she was taking hydrochlorothiazide 12.5mg for HTN - managaged by PCP. Pt reports she stopped taking medication as PCP swithced her blood pressure medication to another this morning when patient notified PCP of . Pt to call [facility] as to report name of new bp medication. Assessment & Plan (05/21/2024 3:28 PM EDT): Patient run out of her medication I put refills in and I advise: - Aerobic exercise to reduce BP. Initial goal of 30 min walk 3-5x/week. Increase as tolerated. - low-sodium diet (goal: <2g/day) and heart healthy diet such as DASH to reduce BP and prevent ASCVD. - Home BP monitoring 1-2 x day with goal of <140/90. - Seek immediate medical attention for chest pain, palpitations, SOB, syncope, or sudden changes in mental status. - Do not change or discontinue current prescriptions without first consulting health care provider Assessment & Plan (02/19/2024 3:49 PM EDT): - Aerobic exercise to reduce BP. Initial goal of 30 min walk 3-5x/week. Increase as tolerated. - low-sodium diet (goal: <2g/day) and heart healthy diet such as DASH to reduce BP and prevent ASCVD. - Home BP monitoring 1-2 x day with goal of <140/90. - Seek immediate medical attention for chest pain, palpitations, SOB, syncope, or sudden changes in mental status. - Do not change or discontinue current prescriptions without first consulting health care provider Assessment & Plan (07/11/2023 3:56 PM EST): - Aerobic exercise to reduce BP. Initial goal of 30 min walk 3-5x/week. Increase as tolerated. - low-sodium diet (goal: <2g/day) and heart healthy diet such as DASH to reduce BP and prevent ASCVD. - Home BP monitoring 1-2 x day with goal of <140/90. - Seek immediate medical attention for chest pain, palpitations, SOB, syncope, or sudden changes in mental status. - Do not change or discontinue current prescriptions without first consulting health care provider Assessment & Plan (02/24/2023 11:19 AM EDT): - Aerobic exercise to reduce BP. Initial goal of 30 min walk 3-5x/week. Increase as tolerated. - low-sodium diet (goal: <2g/day) and heart healthy diet such as DASH to reduce BP and prevent ASCVD. - Home BP monitoring 1-2 x day with goal of <140/90. - Seek immediate medical attention for chest pain, palpitations, SOB, syncope, or sudden changes in mental status. -I will re-start on her on nifedipine 60mg daily - Do not change or discontinue current prescriptions without first consulting health care provider Hypoglycemia 09/01/2022 Hypothyroidism 09/01/2022 Overview (09/01/2022): Pt report her thyroid DX is managed by PCP and is currently on leothyroxine 100mcg QD Assessment & Plan (05/21/2024 3:29 PM EDT): Patient will do her TSH today Assessment & Plan (02/24/2023 11:21 AM EDT): I explain to her one of the reasons she can not lose weigh is her thyroid disease I re-start he gin levothyroxine 137mcg is to early to re-check TSH I will call her back and re-check labs Impaired glucose tolerance test 09/01/2022 Insomnia 09/01/2022 Migraine without aura, not refractory 09/01/2022 Assessment & Plan (10/16/2023 4:42 PM EST): I advise to avoid migraine triggers like red wine, chocolate, cheese, strong perfumes Mild intermittent asthma 09/01/2022 Mixed anxiety and depressive disorder 09/01/2022 Assessment & Plan (11/13/2023 2:11 PM EDT): Counseling done C/w sertraline 50mg daily Assessment & Plan (10/16/2023 4:42 PM EST): Counseling done Sertraline renewed depression 09/01/2022 Moderate persistent asthma without complication 09/01/2022 Obstructive sleep apnea syndrome 09/01/2022 Preeclampsia in period 09/01/2022 Severe major depression, sin gle episode, without psychotic features 09/01/2022 Severe obesity 09/01/2022 Allergic rhinitis 08/01/2012 Dyslipidemia 08/01/2012 Verruca plantaris 08/01/2012 Encounters Date Type Department Care Team Description 09/30/2024 Orders Only GENERIC EXTERNAL DATA DEPARTMENT Provider, Generic External Data 08/13/2024 Orders Only GENERIC EXTERNAL DATA DEPARTMENT Provider, Generic External Data 08/12/2024 Refill [facility] [address] [place] [address] Sarah Bradley MD Acquired hypothyroidism; Impaired glucose tolerance test; Primary hypertension 08/05/2024 Orders Only [facility] External Provider, [facility] 07/26/2024 Telephone [facility] [address] [place] [address] Sarah Bradley MD from Last 3 Months Immunizations Name Administration Dates Next Due Influenza injectable quadriv alent IIV4 with preservative 06/22/2018 Influenza injectable quadriv alent preservative free 11/12/2019 Influenza, IIV3, injectable 06/16/2022 Influenza, Split (incl. silvana fied surface antigen) 06/11/2012 MMR 07/31/2022,05/28/2020 Tdap 06/02/2022,04/23/2020,08/01/2012 Family History Medical History Relation Name Comments Diabetes Mother Hypertension Mother Relation Name Status Comments Mother Social History Tobacco Use Types Packs/Day Years Used Date Smoking Tobacco: Never Passive Smoke Exposure: Never Smokeless Tobacco: Never Tobacco Cessation:Counseling Given: Not Answered Alcohol Use Standard Drinks/Week Comments Defer 0 [...] not to disclose 2021 10:20 AM EDT Last Filed Vital Signs Vital Sign Reading Time Taken Comments Blood Pressure 120/84 06/07/2024 12:58 PM EDT Pulse 68 06/07/2024 12:58 PM EDT Temperature 36.6 ??C (97.8 ??F) 06/07/2024 12:58 PM E DT Respiratory Rate 18 06/07/2024 12:58 PM EDT Oxygen Saturation 96% 05/21/2024 11:49 AM EDT Inhaled Oxygen Concentration - - Weight 86.8 kg (191 lb 6 oz) 06/07/2024 12:58 PM EDT Height 149.9 cm (4' 11 ) 06/07/2024 12:58 PM EDT Body Mass Index 38.65 06/07/2024 12:58 PM EDT Plan of Treatment Health Maintenance Due Date Last Done Comments Pneumococcal Vaccine: Pediatrics (0 to 5 Years) and At-Risk Patients (6 to 49) Years) (1 of 2 - PCV) 1993 Alcohol/Substance Use Screening 1999 Family Planning (PISQ) 2002 Hepatitis B Vaccines (1 of 3 - 19+ 3-dose series) 2006 Dental Prophylaxis 06/17/2021 12/15/2020, 10/31/2012 Dental Oral Exam 09/02/2023 03/02/2023, , 11/27/2020 Dental X-Ray: Full Mouth 11/29/2023 11/27/2020, 11/0 02/2008 Dental X-Ray: Bitewings 03/03/2024 03/02/20 23, 02/09/2023, 11/27/2020, Additional history exists COVID-19 Vaccine ( - 2023- season) 2024 08/24/2021 Influenza Vaccine (#1) 2024 , 11/12/2019, 06/22/2018, Additional history exists SDOH Screening 02/05/2025 02/06/2024 Depression Screening 02/18/2025 02/19/2024, 02/19/20 24 Tobacco Screening 05/21/2025 05/21/2024 Diabetes: Hemoglobin A1C 09/30/2025 025, 01/20/2023, 09/01/2020 Cervical Cancer Screening 02/21/2026 HPV/Cotest 02/21/2026 12/08/2021, 04/0 02/2022, 12/03/2020, Additional history exists Pap Smear 02/21/2026 02/21/2023, 02/03, 12/09/2021, Additional history exists Lipid Panel 09/30/2029 09/30/2024, 0505/2023, 09/01/2020 DTaP/Tdap/Td Vaccines (4 - Td or Tdap) 06/02/2032 06/02/2022, 04/23/2020, 08/01/2012 Zoster Vaccines (1 of 2) 2037 RSV Patients and Patients Aged 60 years or older (1 - 1-dose 75+ series) 2062 HIV Screening Completed 11/16/2019 Hepatitis C Screening Completed 11/16/2019 HIB Vaccines Aged Out No longer eligi [...] patient's age to complete this topic Meningococcal Vaccine Aged Out No francisco jacinto eligible based on patient's age to complete this topic RSV under 20 months Aged Out No longe r eligible based on patient's age to complete this topic Rotavirus Vaccines Aged Out No longer eligible based on patient's age to complete this topic Procedures Procedure Name Priority Date/Time Associated Diagnosis Comments XR CHEST 2 VIEWS Routine 09/30/2024 9:09 AM EST INSULIN Routine 09/30/2024 9:07 AM EST TSH W/REFLEX TO FT4 Routine 09/30/2024 9 :07 AM EST VITAMIN D,25-OH,TOTAL,IA Routine 09/30/2024 9:07 AM EST FERRITIN Routine 09/30/2024 9:07 AM EST VITAMIN B12/FOLATE, SERUM PANEL Routine 09/30/2024 9:07 AM EST LIPID PANEL, STANDARD Routine 09/30/2024 9:07 AM EST C-REACTIVE PROTEIN Routine 09/30/2024 9: 07 AM EST IRON AND TOTAL IRON BINDING CAPACITY Routine 09/30/2024 9:07 AM EST COMPREHENSIVE METABOLIC PANEL Routine 09/30/2024 9:07 AM EST HEMOGLOBIN A1C Routine 09/30/2024 9:07 AM EST CBC WITH AUTO DIFFERENTIAL Routine 09/30/2024 9:07 AM EST HCG, QL, URINE Routine 08/13/2024 9:[address] ABDOMEN PELVIS WO CONTRAST Routine 08/05/2024 8:02 AM EST BITEWINGS - 4 RADIOGRAPHIC IMAGES Routine 03/02/2023 8:00 AM EDT Periodontal disease Dental caries Encounter for dental examination PERIODIC ORAL EVALUATION - ESTABLISHED PATIENT Routine 03/02/2023 8:00 AM EDT Periodontal disease Dental caries Encounter for dental examination HM PAP/HPV Routine 02/21/2023 ZZZ HISTORICAL HPV E6/E7 RFLX CLAIRE 16 18/45 Routine 12/08/2021 10:43 AM EDT PROPHYLAXIS - ADULT Routine 12/15/2020 1 2:00 AM EDT DIAGNOSTIC - DIAGNOSTIC IMAGING - INTRAORAL - COMPREHENSIVE SERIES OF RADIOGRAPHIC IMAGES Routine 11/27/2020 12:00 AM EDT ZZZ HISTORICAL HEPATITIS C ANTIBODY Routine 11/16/2019 10:03 AM EDT ZZZ HISTORICAL HIV AB/AG Routine 11/16/2019 10:03 AM EDT from Last 3 Months or Most Recently Relevant to Health Maintenance Results * XR Chest 2 Views (09/30/2024 9:09 AM EST) Anatomical Region Laterality Modality Chest Radiographic Anai ging 09/30/2024 9:09 AM EST Narrative 09/30/2024 10:16 AM EST ? [facility] ?[address] ?[place] [address] ?XRay Report ? Signed ? Patient: Sarah Sheikh I ?MR#: [id number] ?? [id number] ? : 1985 ?Acct:[id number] ? Age/Sex: 39 / F ?ADM Date: 09/30/24 ? Loc: HO.XRAY ? Attending Dr: Parmjit Caraballo MD ? Ordering Physician: Parmjit Caraballo MD ?? Date of Service: 09/30/24 ?? Procedure(s): XR chest 2V ?? Accession Number(s): [id number] ? cc: Sarah Bradley MD; Parmjit Caraballo [...] 10:13 AM EST RP ? Dictated By: ?Bhargavi,Sid S MD ? Signed By: ?<Electronically signed by Sid S MD Bhargavi in OV> ?09/30/24 1013 ? DD/ 0909 ? TD/TT: 09/30/24 0919 ? Forcer Maker: MSM ? Procedure Note Almita Jeffries - 09/30/[address] [address] XRay Report Signed Patient: Sarah Sheikh [facility] [id number] : 1985Acct:[id number] Age/Sex: 39 / FADM Date: 09/30/24 Loc: HO.XRAY Attending Dr: Parmjit Caraballo MD Ordering Physician: Parmjit Caraballo MD Date of Service: 09/30/24 Procedure(s): XR chest 2V Accession Number(s): [id number] cc: Sarah Bradley MD; Parmjit Caraballo MD EXAMINATION: XR CHEST CLINICAL INFORMATION: E66.9 - Obesity, unspecified COMPARISON: Chest x-ray 03/04/2023 TECHNIQUE: 2 views of the chest were obtained. FINDINGS: No significant abnormality is noted involving the heart, lungs, mediastinum, bony thorax or soft tissues. XR/XR chest 2V IMPRESSION: Unremarkable chest examination. Electronically signed by: Sid Burk MD 09/30/2024 10:13 AM EST RP Dictated By: Sid Burk MD Signed By: <Electronically signed by Sid Burk MD in OV> 09/30/24 1013 DD/ 0909 TD/TT: 09/30/24 0919 Forcer Maker: [facility] External Provider IMG XR PROCEDURES Edited Result - Final * (ABNORMAL) Vitamin D, 25-Hydroxy, Total, Immunoassay (09/30/2024 9:07 AM EST) Vitamin D 25-OH Total 22.6(L) >30 ng/mL [facility] Comment:Health Based Referen ce Values*< 20 ng/mL Ruluavnqy20-93 ng/mL Insufficient> 30 ng/mL Sufficient*Red ODONNELL. N [...] ORDERAB LES Final Result Performing Organization Address [facility] Co de Phone Number [facility] [address] [place] [phone] * Vitamin B12 (Cobalamin) and Folate Panel, Serum (09/30/2024 9:07 AM EST) Vitamin B12 508 200 - 900 pg/mL [facility] Comment:NORMAL 200-900 PG/ML INDETERMINATE 160-199 PG/ML DEFICIENT < 160 PG/ML Folate 13.1 > or = 4.0 ng/mL [facility] Comment:Reference Values:> o r = 4.0 ng/mL< 4.0 ng/mL suggests folate deficiency Methotrexate, aminopterin and folinic acid(leucovorin) are chemotherapeutic agents whose molecularstructures are similar to folate; therefore, the Architectfolate assay cannot be used for patients using these drugs. 09/30/2024 9:07 AM EST 09/30/2024 9:07 AM EST us Generic External Data Provider LAB BLOOD ORDERAB LES Final Result Performing Organization Address [facility] de Phone Number [facility] [address] [place] [phone] * TSH with Reflex to Free T4 (09/30/2024 9:07 AM EST) TSH reflex Free T4 1.27 0.32 - 4.0 uIU/mL [facility] 09/30/2024 9:07 AM EST 09/30/2024 9:07 AM EST us Generic External Data Provider LAB BLOOD ORDERAB LES Final Result Performing Organization Address [facility] Co de Phone Number [facility] [address] [place] [phone] * (ABNORMAL) CBC auto differential (09/30/2024 9:07 AM EST) White Blood Count 6.8 4.8 - 10.8 X10*3/uL [facility] Red Blood Count 4.57 4.20 - 5.50 X10*6/uL [facility] Hemoglobin 11.5(L) 12.0 - 16.0 g/dl [facility] Hematocrit 37.5 37.0 - 47.0 % [facility] Mean Corpuscular Volume 82.1 80.0 - 98.0 fL [facility] Mean Corpuscular Hemoglobin 25.2(L) 27.0 - 33.0 pg [facility] Mean Corpuscular HGB Conc 30.7(L) 31.0 - 35.0 g/dl [facility] Red Cell Distribution Width 15.2 11.0 - 16.0 % [facility] Platelet Count 286 160 - 400 X10*3/uL [facility] Mean Platelet Volume 11.0 9.4 - 12.3 fL [facility] Neutrophils Percent Auto 70.2 45 - 73 % [facility] Imm Gran Pct Auto 0.4 0.0 - 0.4 % [facility] Lymphocytes Percent Auto 20.6 20 - 40 % [facility] Monocytes Percent Auto 6.1 2 - 11 % [facility] Eosinophils Percent Auto 2.3 0 - 4 % [facility] Basophils Percent Auto 0.4 0 - 2 % [facility] NRBC Pct Auto 0.0 0.0 - 0.2 /100WBC [facility] Neutrophils Absolute Auto 4.8 2.0 - 8.3 x10*3/uL [facility] Imm Gran Abs Auto 0.03 0.00 - 0.03 X10*3/uL [facility] Lymphocytes Absolute Auto 1.4 1.2 - 4.9 X10*3/uL [facility] Monocytes Absolute Auto 0.4 0.1 - 1.2 X10*3/uL [facility] Eosinophils Absolute Auto 0.2 0.0 - 0.4 X10*3/uL [facility] Basophils Absolute Auto 0.0 0.0 - 0.2 X10*3/uL [facility] NRBC Abs Auto 0.000 0.0 - 0.012 X10*3/uL [facility] 09/30/2024 9:07 AM EST 09/30/2024 9:07 AM EST Generic External Data Provider LAB BLOOD ORDERAB LES Final Result Performing Organization Address [facility] Co de Phone Number [facility] [address] [place] [phone] * (ABNORMAL) Iron And Total Iron Binding Capacity (09/30/2024 9:07 AM EST) Iron 33 30 - 160 mcg/dL [facility] Total Iron Binding Capacity 396 228 - 428 mcg/dL [facility] Percent Iron Saturation 8(L) 15 - 50 % [facility] Unsaturated Iron Binding 363 ug/dL [facility] 09/30/2024 9:07 AM EST 09/30/2024 9:07 AM EST [employer] External Data Provider LAB BLOOD ORDERAB LES Final Result Performing Organization Address [facility] de Phone Number [facility] [address] [place] [phone] * Insulin (09/30/2024 9:07 AM EST) Insulin 18 2 - 29 uU/mL [facility] Comment:This test was perfor med [...] ORDERAB LES Final Result Performing Organization Address [facility] Co de Phone Number [facility] [address] [place] [phone] * C-reactive Protein (09/30/2024 9:07 AM EST) C Reactive Protein 0.47 < or = 0.50 mg/dL [facility] 09/30/2024 9:07 AM EST 09/30/2024 9:07 AM EST Generic External Data Provider LAB BLOOD ORDERAB LES Final Result Performing Organization Address [facility] Phone Number [facility] [address] [place] [phone] * Hemoglobin A1c (09/30/2024 9:07 AM EST) Hemoglobin A1c 5.9 <6.0 % [facility] Comment:Hemoglobin A1C Refer ence Range Adults: 4.8 - 6.0 % Non diabetic: < 6.0 % Goal: < 7.0 %Additional Action Suggested: > 8.0 %Note: Hemoglobin A1c results are invalid for patients with abnormal amounts of HbF. Blood transfusions may impact the HbA1c concentration in the patient sample. Estimated Average Glucose 123 mg/dL [facility] Comment:eAG = Estimated ave rage glucose which is %A1C expressed asaverage glucose, using the formula of the H4O-LrnxppgHsbzron Glucose study (ADAG), Diabetes Care, Vol.31,#8,Apr. 2007 09/30/2024 9:07 AM EST 09/30/2024 9:07 AM EST Generic External Data Provider LAB BLOOD ORDERAB LES Final Result Performing Organization Address [facility] Co de Phone Number [facility] [address] [place] [phone] * Ferritin (09/30/2024 9:07 AM EST) Ferritin 10 10 - 122 ng/mL [facility] 09/30/2024 9:07 AM EST 09/30/2024 9:07 AM EST Generic External Data Provider LAB BLOOD ORDERAB LES Final Result Performing Organization Address City/[facility]/ZIP Co de Phone Number [facility] [address] [place] [phone] * (ABNORMAL) Lipid Panel, Standard (09/30/2024 9:07 AM EST) Triglycerides 150(H) <150 mg/dL [facility] Comment:Desirable Triglyceri de: less than 150 mg/dLBorderline High Triglyceride 150-199 mg/dLHigh Triglyceride: 200-499 mg/dLVery High Triglyceride: greater than or equal to 5OO mg/dL Cholesterol 170 <200 mg/dL [facility] Comment:Desirable Cholestero l: less than 200 mg/dLBorderline High Cholesterol: 200-239 mg/dLHigh Cholesterol: greater than 239 mg/dL LDL Cholesterol Calculated 101(H) <100 mg/dL [facility] Comment:Desirable LDL: less than 100 mg/dLNear Optimal/Above Optimal LDL: 110- 129 mg/dLBorderline High LDL: 130-159 mg/dLHigh LDL: 160-189 mg/dLVery High LDL: greater than or equal to 190 mg/dL HDL Cholesterol 39(L) >40 mg/dL [facility] Comment:Desirable HDL: great er than 40 mg/dL Note: This HDL assay may give artificially low results in patients with liver disease. 09/30/2024 9:07 AM EST 09/30/2024 9:07 AM EST us Generic External Data Provider LAB BLOOD ORDERAB LES Final Result Performing Organization Address [facility]/ZIP Co de Phone Number [facility] [address] [place] [phone] * (ABNORMAL) Comprehensive Metabolic Panel (09/30/2024 9:07 AM EST) Sodium 138 135 - 145 mmol/L [facility] Potassium 3.8 3.3 - 5.1 mmol/L [facility] Chloride 108 96 - 108 mmol/L [facility] Carbon Dioxide 26 22 - 29 mmol/L [facility] Anion Gap 8(L) 12 - 20 [facility] Urea Nitrogen (BUN) 27(H) 9 - 16 mg/dL [facility] Creatinine, Serum 0.70 0.5 - 1.4 mg/dL [facility] Estimated Glomerular Filt Rate >60 [facility] Comment:Chronic Kidney Disea se: Estimated GFR < 60 mL/min/1.05c5Ohvayq Kidney Disease: Estimated GFR < 15 mL/min/1.73m2 Glucose 108 60 - 115 mg/dL [facility] Calcium 9.1 8.4 - 10.2 mg/dL [facility] Bilirubin, Total 0.3 0.0 - 1.0 mg/dL [facility] Aspartate Amino Transferase 22 5 - 31 U/L [facility] Alanine Aminotransferase 17 0 - 31 U/L [facility] Total Protein 8.4(H) 6.5 - 8.0 g/dL [facility] Albumin Level 4.4 3.5 - 5.0 g/dL [facility] Alkaline Phosphatase 74 39 - 117 U/L [facility] 09/30/2024 9:07 AM EST 09/30/2024 9:07 AM EST us Generic External Data Provider LAB BLOOD ORDERAB LES Final Result [facility] [address] [place] [phone] * HCG, Qualitative, Urine (08/13/2024 9:10 AM EST) Urine NEGATIVE NEGATIVE [facility] Comment:This test was develo ped to detect early . Falsenegative results may occur after the 5th - 7th week ofpregnancy when using this test method. If clinicallyindicated, consider a serum hCG. 08/13/2024 9:10 AM EST 08/13/2024 9:17 AM EST us Generic External Data Provider LAB URINE ORDERAB LES Final Result Performing Organization Address City/State/[facility] Co de Phone Number [facility] [address] [place] [phone] * CT Abdomen Pelvis w/o Contrast (08/05/2024 8:02 AM EST) Anatomical Region Laterality Modality Body, Pelvis, Abdomen Computed T omography 08/05/2024 8:02 AM EST Narrative 09/16/2024 1:12 PM EST ? [facility] ?[address] ?[place] [address] ? CT Scan Report ? Signed ? Patient: Sarah Sheikh I ?MR#: [id number] ?? [id number] ? : 1985 ?Acct:[id number] ? Age/Sex: 39 / F ?ADM Date: 08/05/24 ? Loc: HO.CT ? Attending Dr: Osbaldo Herron MD ? Ordering Physician: Osbaldo Herron MD ?? Date of Service: 08/05/24 ?? Procedure(s): CT abdomen pelvis wo IV con ?? Accession Number(s): [id number] ? cc: Sarah Bradley MD; Osbaldo Herron MD ? Report Number: ?? [id number]: Total DLP = ??870.00 mGy-cm ?? EXAMINATION: [...] in OV> ? 09/16/24 1309 ? DD/ 08 ? TD/TT: 08/05/24 0806 ? Forcer Maker: ? Procedure Note Donkatarzyna, Image - 09/16/[address] [address] [address] Scan Report Signed Patient: Sarah Sheikh IMR#: [id number] : 1985Acct:[id number] Age/Sex: 39 / FADM Date: 08/05/24 Loc: HO.CT Attending Dr: Osbaldo Herron MD Ordering Physician: Osbaldo Herron MD Date of Service: 08/05/24 Procedure(s): CT abdomen pelvis wo IV con Accession Number(s): [id number] cc: Sarah Bradley MD; Osbaldo Herron MD Report Number: [id number]: Total DLP = 870.00 mGy-cm EXAMINATION: CT [...] by: Sky Villalobos MD 09/16/2024 01:09 PM [facility] Dictated By: Sky Stinson MD Signed By: <Electronically signed by Sky Chahal MDin OV> 09/16/24 1309 DD/ 0802 TD/TT: 08/05/24 0806 Forcer Maker: [facility] External Provider IMG CT PROCEDURES Edited Result - Final * Hm Pap Smear (02/21/2023) Historical Provider HEALTH MAINTENANCE Final Result * HPV E6/E7 RFLX CLAIRE 16 18/45 (12/08/2021 10:43 AM EDT) Pathologist [facility] HPV mRNA E6/E7 rflx Not Detected Not Detected [facility] [facility] Comment: Methodology: Light Armored Vehicle Officer-Mediated Amplification This assay detects E6/E7 viral messenger RNA (mRNA) from 14 high-risk HPV types (16,18,31,33,35,39,45,51,52,56,58,59,66,68). The analytical performance characteristics of this assay have been determined by [employer]. The modifications have not been cleared or approved by the FDA. This assay has been validated pursuant to the CLIA regulations and is used for clinical purposes. For additional information, please refer to http://education.[employer]/faq/TEP800f2 (This link if provided for information/ educational purposes only.) THIS TEST WAS PERFORMED AT: [employer] [address] [place] [address],[address] [place], [place] ??[phone] KLAUS BRASHER MD 12/08/2021 10:4 3 AM EDT Laine Zamora HISTORICAL/NON ORDERABLE LABS Fi nal Result Performing Organization Address [facility] Number [facility] [place] [address], * HEPATITIS C ANTIBODY (11/16/2019 10:03 AM EDT) [facility] HEPATITIS C ANTIBODY NONREACTIVE NONREACTIVE [facility] Comment: Antibodies to HCV not detected; does not exclude early acute HCV infection. 11/16/2019 10:0 3 AM EDT Laine Zamora HISTORICAL/NON ORDERABLE LABS Fi nal Result Performing Organization Address [facility] [place] [address], [place] * HIV AB/AG (11/16/2019 10:03 AM EDT) [facility] HIV AG/AB NONREACTIVE [facility] Comment: HIV-1 p24 Ag and/or HIV-1/HIV-2 Ab not detected. ?? A test result that is nonreactive does not exclude the possibility of exposure to or infection with HIV-1 and/or HIV-2. Nonreactive results in this assay for individuals with prior exposure to HIV-1 and/or HIV-2 may be due to antigen and antibody levels that are below the limit of detection of this assay. ?? The [employer] HIV Ag/Ab Combo assay result and supplemental assay results should be interpreted in conjunction with the patient's clinical presentation, history and other laboratory results. ??If the results are inconsistent with clinical evidence, additional testing is suggested to confirm the result. 11/16/2019 10:0 3 AM EDT us Laine Riverooney HISTORICAL/NON ORDERABLE LABS Fi nal Result [facility] [address] from Last 3 Months or Most Recently Relevant to Health Maintenance Insurance [facility] MEDICAID STAND ADULT Care Teams Senior Product Manager Relationship Specialty Start Date End Date Sarah Bradley MD [address] [place] [phone] PCP - General Family Medicine 06/22/18 Aisha Savage Client Manager Large LawSpinning Operator 04/11/24
--- OUTSIDE RECORDS SUMMARY | 2024-10-02 13:24 | XMS_ITS | Encounter Summary ---
Author Organization [employer] Address [address] [place] [address] Care Team Providers Care Mysql Developer Name Role Phone Sarah Bradley MD Primary Care Provide r Encounter Details Date Type Department Care Team ([facility] st Contact Info) Description 07/26/2024 Telephone [facility] [address] [place] [address] Sarah Bradley MD [address] [place] [address] Social History Tobacco Use Types Packs/Day Years [...] documented as of this encounter Care Teams Mysql Developer Relationship Specialty Start Date End Date Sarah Bradley MD [address] [place] [phone] PCP - General Family Medicine 06/22/18 Aisha Savage Solar Installation Crew SupervisorChristmas Tree Grader 04/11/24 documented as of this encounter
--- OUTSIDE RECORDS SUMMARY | 2024-10-02 13:24 | XMS_ITS | Encounter Summary ---
Author Organization [facility] [facility] Address [address] [place] [address] Care Team Providers Care Relocation Specialist Name Role Phone Sarah Bradley MD Primary Care Provide r Encounter Details Date Type Department Care Team (Latest Contact Info) Description 12/15/2020 Abstract C CONVERSIONS Dental, Provider, DDS Social History Tobacco Use Types Packs/Day Years Used Date Smoking Tobacco: Never Assessed Comments Unknown Sex and Gender Information Value [...] Diagnoses Not on filedocumented in this encounter Care Teams Relocation Specialist Relationship Specialty Start Date End Date Sarah Bradley MD [address] [place] [phone] PCP - General Family Medicine 06/22/18 Aisha Savage Washing Machine RepairerAlarm Mechanism Adjuster 04/11/24 documented as of this encounter
== END 2024-10-02 13:21 | disposition home or self-care (01) ==
LOC: HO.HBST 11:08
PROVIDERS: PCP Internal Medicine; Visit Provider Counselor Mental Health
DX: F43.23 Adjustment disorder with mixed anxiety and depressed mood (principal)
CPT/HCPCS: 90837

== ENCOUNTER → 2024-10-02 11:08 | Outpatient (BNVA) | payer OTHER, MEDICAID, SELFPAY | PROVIDERS: PCP Internal Medicine; Visit Provider Counselor Mental Health ==

== ENCOUNTER → 2024-10-16 10:06 | Outpatient (AMB) | payer OTHER, SELFPAY ==
--- NOTE | 2024-10-16 10:06 | MHC.WMTHER ---
Intake Intake Visit Reasons: VIDEO BH Intake Part 2 Allergies latex [LATEX] Allergy (Intermediate, Verified 09/30/24 12:42) [facility] Medical History Non-insulin dependent type 2 diabetes mellitus Sleep apnea treated with continuous positive airway pressure (CPAP) Sleep apnea Hypothyroidism Elevated cholesterol Obesity (BMI 30-39.9) Supraumbilical hernia HTN (hypertension) Anemia History of hypothyroidism Hx of sleep apnea Diastasis recti Depression Asthma GERD (gastroesophageal reflux disease) Surgical History Hx of section History of umbilical hernia repair (05/13/19) Family History Father No problems noted. Mother HTN (hypertension) Asthma Hyperthyroidism Diabetes Paternal Aunt Breast cancer Son Asthma Son Asthma ADHD Son Asthma Daughter Autism Social History Household Members: Spouse and Children Housing: Apartment Are you a primary client care coordinator to a significant other at home: No Do you presently have visiting nurse or other home services: No Alcohol intake: former Patient Tobacco Use Status: Never used Tobacco Sexual orientation: Straight/Heterosexual Gender identity: Female Female Reproductive History Menstrual Age of Menarche: 13 Behavioral Health Assessment Weight Management Therapy Therapy Notes Details Mrs. Sheikh is a 39-year-old female presenting for her second behavioral health visit as part of the psychological assessment for the surgical weight loss program at [facility]. The patient reports being referred to the Weight Management Program (WMP) by her robotic weld technician due to persistent weight loss difficulties, despite multiple attempts with various strategies. Her primary care provider (PCP) initially suspected a hormonal issue contributing to her weight concerns. Additionally, she has a history of polycystic ovary syndrome (PCOS) and insulin resistance, which may be factors in her challenges. Mrs. Sheikh attends biweekly telehealth counseling sessions and has not used psychotropic medications in the past year. Previously, she was prescribed trazodone for sleep and an unspecified medication for anxiety, but both were discontinued due to limited benefit. Since then, she has managed her symptoms independently. The patient has a history of anxiety, depression, and depression (PPD). Her anxiety is triggered in crowded spaces or situations where escape feels difficult, resulting in fidgeting, shaking, and avoidance of social events. She denies experiencing panic attacks, psychiatric hospitalizations, or crisis care, and has no history of suicidal ideation, attempts, self-harm, or harm to others. There is no evidence of stress or emotional eating, and scores from the BES suggest a low risk for binge eating behavior. PHQ-9 scores indicate no active symptoms or concerns related to depression. The mental status examination is within normal limits, suggesting that her functioning is not currently impaired. At this time, the patient is cleared from a behavioral health standpoint. Presenting Concerns Referral Source WMP-provider. Reason for referral Completion of behavioral health assessment as part of process for weight-loss surgery. Precipitating Event Obesity. Living Situation Current Living Situation Rent At risk of losing current housing? No Satisfied with current living situation? Yes Comments PT lives with her and 4 children. Food/Weight/Diet Expectations of change Initial goal to lose 10% of her weight before surgery, which is about 19lbs. Ultimate weight goal: 168lbs before surgery PT started the program on 09/20/2024 at 187 lbs. Her most recent weight as of yesterday 10/15/2024: 183 lbs. PT is implementing the following: Current meal plan: 4969-0171 calories per day. she's not keeping track, and also does intermittent fasting, and eats from 12noon to 6pm. Exercise plan: walking. Scale: Yes. Hasn't sent weight measures. History/Relationship with food PT reports she eats everything and eats a lot of meat. Before starting the program she didn't have a set meal scheduled. However, always had 3 mid-size meals a day with no snacks. PT believes her weight gain is a combination of health issues and eating choices. Denies stress-eating. Example of meals before starting the program: Breakfast: @8-9am. sandwich, egg with toast or hot dogs with bread. Lunch: Around 12, boiled vianda (yuca, plantains, name, which are carbs) with fish or soup from a local restaurant. Dinner: around 4-5pm. Pasta with salsa and chicken, rice with beans, and meat and salad. Snacks: None Drinks/Liquids: Coffee with milk and sugar. Water, 2 glasses of juice. 2 cans of sprite at day. History/Relationship with weight PT reports she was always at a healthy weight with her 3rd she gained substantial weight and wasn't able to lose the weight, then with 4th she developed complications (gestational diabetes, high blood pressure) and gained more weight In the last 10 years, the patient's Lowest weight was 126 lbs, and the highest was 197 lbs. History/Relationship with dieting Herbalife, unity, different teas. She has been able to lose about 20 lbs. in about 3 months but once she returned to old habits she gained all the weight back. Binge Eating Do you frequently eat large amounts of food in short periods of time, not feeling physically hungry? No Do you feel out of control when you eat a large amount of food in a short period of time? No Do you eat large amounts of food rapidly and typically alone? No Night Eating Do you wake up at least once during the night to eat? No If you wake up in the night, do you find that it is necessary to eat something in order to fall back asleep? No Do you have little or no appetite in the morning and feel very hungry in the evening, often overeating between dinner and when you go to bed? Yes Social History Family history and relationship PT is 3 years ago to her current , they have been together for about 6 years. PT has 4 children, 2 oldest are from previous relationships and 2 the youngest are with the . PT has 5 siblings, her parents are alive but . PT reports she has good family relationships and they respect each other. Parental/Familial aboriginal liaison officer obligations 4 children. They are 16, 8, 4 and 2. 3 boys and 1 girl. Developmental history and status None reported. Currently WNL. Social support , children, family. Community support Providers. Therapist from [facility] ([place]) Support to children who have developmental issues. Gnosticism/Spirituality Grew up as confucianist, but doesn't practice. Cultural/Ethnic information PT is from [place], and mainly Mohawk-speaking. PT returned to [place] 6 years ago. Legal Involvement and History Current or historical involvement with the legal system? None reported. Education Highest grade completed 12th, HS diploma. Preferred learning style Learn by doing Currently enrolled in educational program? No Interested in further educational program? No Educational Interests/Skills Has done some training for early education as her daughter has autism and son ADHD. Also did nutrition training due to her oldest sons' multiple allergy issues. 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 mindful walks alone in a park. Financial Situation Describe current financial situation Comfortable Financial assistance? Food [employer], SSI (for daughter.) and Other (Health insurance, WIC.) Service Service? No Mental Health and Addiction Treatment Current/Past substance abuse? No Comments Alcohol: None Cigarettes/Tobacco: None. Cannabis/Edibles: None. Current/Past addictive behavior concerns? No Psychiatric history The patient reports that she currently attends counseling sessions every two weeks via Telehealth. She began counseling several years ago after her . Her therapist, Tonya Kingsley, is affiliated with [facility] at [place], located on [facility]. PT denies taking any psychotropic medications in the past year. Previously, she was prescribed trazodone for sleep and an unspecified medication for anxiety. However, these medications were discontinued as she did not observe significant progress, and she managed her symptoms independently. PT has been diagnosed with anxiety and depression. She reports experiencing depression (PPD) after the of her daughter. She encounters challenges when in crowded environments or when she feels she cannot escape. During episodes of anxiety, she becomes very fidgety, shakes, and often prefers to avoid social events. PT denies having ever experienced panic attacks. She also denies any history of hospitalization for mental health reasons or needing crisis support. PT has not engaged in any higher level of care beyond outpatient services. She reports no history of suicidal ideation (SI), suicide attempts (SA), self-harm, or harm to others. Medical and Physical Health Summary Additional Medical History not covered in history PCOS. Sexual History concerns None reported Physical exam in the last year? Yes Pain Screening Current pain? No Pain in the last few months? No Medications Is the patient compliant with medications? Yes Does the patient have Johnson Guardian in place? Not applicable Does the patient use complimentary health approaches? No Trauma/Abuse History History of trauma? No Questionnaires PHQ-9 Over the last 2 weeks, how often have you been bothered by any of the following problems? 1. Little interest or pleasure in doing things: not at all 2. Feeling down, depressed, or hopeless: not at all 3. Trouble falling or staying asleep, or sleeping too much: not at all 4. Feeling tired or having little energy: not at all 5. Poor appetite or overeating: not at all 6. Feeling bad about yourself - or that you are a failure or have let yourself or your family down: not at all 7. Trouble concentrating on things, such as reading the newspaper or watching television: not at all 8. Moving or speaking so slowly that other people could have noticed. Or the opposite - being so fidgety or restless that you have been moving around a lot more than usual: not at all 9. Thoughts that you would be better off or of hurting yourself in some way: not at all Total score: 0 Depression Screening Interpretation: Negative Depression Screening Done: Yes 87006 - PHQ-9 Billing: Yes Source: Developed by Drs. Johnny Mcgregor, Mindy Rodriguez, Dontae Smith and colleagues, with an educational iker from [employer]. Assessment & Plan Assessment & Plan (1) Adjustment disorder with mixed anxiety and depressed mood: Code(s): F43.23 - Adjustment disorder with mixed anxiety and depressed mood Plan The patient has been cleared from a behavioral health standpoint and is scheduled for a follow-up 1-3 weeks post-op. She has been advised to contact the office for assistance in setting up her scale and to establish weekly communication with her provider as needed. Additionally, she was encouraged to request a letter from her provider for a [employer] discount and to begin a consistent exercise routine. Next travon: 1-3 wks Telehealth Telehealth Telehealth Platform: [employer] Location of provider rendering services: other Location of patient: address on file Patient Identification confirmed using: Name, : Yes Telehealth method: video Patient verbally consented to treatment: Yes Patient verbally consented to billing insurance company: Yes Patient informed of any privacy concerns related to visit: Yes Minutes spent on Phone/Video with Pt.: 45 Coding Level of Care Code Established Pt Tele Psytx 45 mins (99277) Patient Type Established Diagnoses Adjustment disorder with mixed anxiety and depressed mood F43.23 Additional Codes PHQ-9 - 28496 - PHQ-9 Billing: Yes ([id number]) Time Spent (min) 45
--- OUTSIDE RECORDS SUMMARY | 2024-10-16 11:55 | XMS_ITS | Encounter Summary ---
Author Organization [facility] [facility] [facility] Address [address] [place] [address] Care Team Providers Care Clinical Pharmacy Manager Name Role Phone Sarah Bradley MD Primary Care Provide r Encounter Details Date Type Department Care Team (Latest Contact Info) Description 12/15/2020 Abstract [facility] CONVERSIONS Dental, Provider, DDS Social History Tobacco [...] as of this encounter Plan of Treatment Upcoming Encounters Date Type Department Care Team (Late st Contact Info) Description 01/29/2025 10:30 AM EDT Office Visit [facility] OPTOMETRY [address] [place] [address] Nehemias, Katy, OD [address] [place] [address] documented as of this encounter Visit Diagnoses Not on filedocumented in this encounter Care Teams Clinical Pharmacy Manager Relationship Specialty Start Date End Date Sarah Bradley MD [address] [place] [address] PCP - General Family Medicine 06/22/18 Aisha Savage Needle Board RepairerHand Potter 04/11/24 documented as of this encounter
--- OUTSIDE RECORDS SUMMARY | 2024-10-16 11:55 | XMS_ITS | Encounter Summary ---
Author Organization [employer] Address [address] [place] [address] Care Team Providers Care Circuit Judge Name Role Phone Sarah Bradley MD Primary Care Provide r Encounter Details Date Type Department Care Team (Late st Contact Info) Description 08/05/2024 Orders Only [facility] External Provider, [facility] Social History Tobacco Use Types Packs/Day [...] Description 01/29/2025 10:30 AM EDT Office Visit [facility] OPTOMETRY [address] [place] [address] Nehemias, Katy, OD [address] [place] [address] documented as of this encounter Procedures Procedure Name Priority Date/Time Associated Diagnosis Comments CT ABDOMEN PELVIS WO CONTRAST Routine 08/05/2024 8:02 AM EST documented in this encounter Results * CT Abdomen Pelvis w/o Contrast (08/05/2024 8:02 AM EST) Anatomical Region Laterality Modality Body, Pelvis, Abdomen Computed T omography 08/05/2024 8:02 AM EST Narrative 09/16/2024 1:12 PM EST ? [facility] ?[address] ?[place] [address] ? CT Scan Report ? Signed ? Patient: Aguilar,Sarah Torres ?MR#: [id number] ?? [id number] ? : 1985 ?Acct:[id number] ? Age/Sex: 39 / F ?ADM Date: 08/05/24 ? Loc: HO.CT ? Attending Dr: Osbaldo Herron MD ? Ordering Physician: Osbaldo Herron MD ?? Date of Service: 08/05/24 ?? Procedure(s): CT abdomen pelvis wo IV con ?? Accession Number(s): [id number] ? cc: Sarah Bradley MD; Osbaldo Herron MD ? Report Number: ?? [id number]: Total DLP = ??870.00 mGy-cm ?? EXAMINATION: [...] in OV> ? 09/16/24 1309 ? DD/ 1 ? TD/TT: 08/05/24805 ? Polisher Balance Screwhead: ? Procedure Note Mervin, Almita - 09/16/[address] [place] [address] [address] Scan Report Signed Patient: Sarah Sheikh IMR#: [id number] : 1985Acct:[id number] Age/Sex: 39 / FADM Date: 08/05/24 Loc: HO.CT Attending Dr: Osbaldo Herron MD Ordering Physician: Osbaldo Herron MD Date of Service: 08/05/24 Procedure(s): CT abdomen pelvis wo IV con Accession Number(s): [id number] cc: Sarah Bradley MD; Osbaldo Herron MD Report Number: [id number]: Total DLP = 870.00 mGy-cm EXAMINATION: CT [...] by: Sky Villalobos MD 09/16/2024 01:09 PM [facility] Dictated By: Sky Stinson MD Signed By: <Electronically signed by Sky Chahal MDin OV> 09/16/24 1309 DD/ 0802 TD/TT: 08/05/24 0806 Polisher Balance Screwhead: [facility] External Provider IMG CT PROCEDURES Edited Result - Final documented in this encounter Visit Diagnoses Not on filedocumented in this encounter Additional Health Concerns Assessment Noted Time PHQ-9 Depression Total Score: 0 02/19/20 1:15 PM EDT documented as of this encounter Care Teams Circuit Judge Relationship Specialty Start Date End Date Sarah Bradley MD [address] [place] [address] PCP - General Family Medicine 06/22/18 Aisha Savage Nursing DirectorTurf Grower 04/11/24 documented as of this encounter
--- OUTSIDE RECORDS SUMMARY | 2024-10-16 11:56 | XMS_ITS | Encounter Summary ---
Author Organization [employer] Address [address] [place] [address] Care Team Providers Care Advertising Material Distributor Name Role Phone Sarah Bradley MD Primary Care Provide r Encounter Details Date Type Department Care Team (Late Contact Info) Description 06/07/2023 Abstract [facility] MEDICINE [address] [place] [address] Sarah Bradley MD [address] [place], [place] [phone] Social History Tobacco Use Types Packs/Day Years [...] Encounters Date Type Department Care Team (Late Contact Info) Description 01/29/2025 10:30 AM EDT Office Visit [facility] OPTOMETRY [address] [place], [place] [phone] Katy Del Cid, OD [address] [place], [place] [phone] documented as of this encounter Procedures Procedure Name Priority Date/Time Associated Diagnosis Comments COLPOSCOPY Routine 12/29/2020 HM PAP/HPV Routine 12/03/2020 documented in this encounter Results * Colposcopy (12/29/2020) Historical Provider IN CLINIC/BEDSIDE ORDERAB LES Final [...] documented as of this encounter Care Teams Advertising Material Distributor Relationship Specialty Start Date End Date Sarah Bradley MD [address] [place] [address] PCP - General Family Medicine 06/22/18 Aisha Savage General Farm ManagerLead Qa Analyst 04/11/24 documented as of this encounter
--- OUTSIDE RECORDS SUMMARY | 2024-10-16 11:56 | XMS_ITS | Clinical Summary ---
Author Organization [employer] [facility] ity Address [address] [place] [address] Care Team Providers Care Maintenance Shop Welder Name Role Phone Unavailable Primary Care Provider Unavailabl e Surgical History Surgery Date Site/Laterality Comments HERNIA REPAIR 2018 PROCEDURE: REPAIR UMBILICAL HERNIA SECTION 2016 PROCEDURE: HISTORICAL DELIVERY Medical History Medical History [...] drink = 0.6 oz pur e alcohol) Comments Unknown Sex and Gender Information Value Date Recorded Sex Assigned at Not on file Legal Sex Female 7:33 PM EST Gender Identity Not on file Sexual Orientation Not on file Obstetrics History Plan of Treatment Health Maintenance Due Date Last Done Comments DTaP,Tdap,and Td Vaccines (1 - Tdap) 2006 Hepatitis B Vaccines (1 of 3 - 19+ 3-dose series) 2006 Cervical Cancer Screening: P ap Smear 2008 COVID-19 Vaccine ( - 2023-2 5 season) 2024 Influenza Vaccine (#1) 2024 [...] patient's age to complete this topic Meningococcal B Vacine Aged Out No lo nger eligible based on patient's age to complete [...]
--- OUTSIDE RECORDS SUMMARY | 2024-10-16 11:56 | XMS_ITS | Encounter Summary ---
Author Organization [employer] Address [address] [place] [address] Care Team Providers Care Art Appraiser Name Role Phone Sarah Bradley MD Primary Care Provide r Encounter Details Date Type Department Care Team ([facility] Contact Info) Description 01/27/2023 Abstract [facility] MEDICINE [address] [place] [address] Sarah Bradley MD [address] [place] [address] Social History Tobacco Use Types Packs/Day Years [...] Upcoming Encounters Date Type Department Care Team ([facility] Contact Info) Description 01/29/2025 10:30 AM EDT Office Visit [facility] OPTOMETRY [address] [place] [address] Katy Del Cid RAYO [address] [place] [address] documented as of this encounter Procedures Procedure Name Priority Date/Time Associated Diagnosis Comments HM PAP/HPV Routine 12/09/2021 12:00 AM EDT documented in this encounter Results * Hm Pap Smear (12/09/2021 12:00 AM EDT) Historical Provider HEALTH MAINTENANCE Final Result documented in this encounter Visit Diagnoses Not on filedocumented in this encounter Additional Health Concerns Assessment Noted Time PHQ-9 Depression Total Score: 0 01/18/20 23 10:22 AM EDT documented as of this encounter Care Teams Art Appraiser Relationship Specialty Start Date End Date Sarah Bradley MD [address] [place] [address] PCP - General Family Medicine 06/22/18 Aisha Savage Inspector MissileAssociate Account Director 04/11/24 documented as of this encounter
--- OUTSIDE RECORDS SUMMARY | 2024-10-16 11:56 | XMS_ITS | Encounter Summary ---
Author Organization [employer] Address [address] [place] [address] Care Team Providers Care Prover Name Role Phone Sarah Bradley MD Primary Care Provide r Reason for Visit * Reason Onset Date Comments PT1 03/22/2024 Encounter Details Date Type Department Care Team ([facility] Contact Info) Description 03/22/2024 Telephone [facility] MEDICINE [address] [place], [place] [phone] Sarah Bradley MD [address] [place] [address] PT1 Social History Tobacco Use Types Packs/Day [...] Y/N: Yes Provider name or facility name: [facility] Facility Address: [address] [place] [address] Escort needed: Y/N: No Do you have a wheelchair: Y/N: No If yes- Manual or electric: n/a Visits; all future visits documented in this encounter Plan of Treatment Upcoming Encounters Date Type Department Care Team (Late st Contact Info) Description 01/29/2025 10:30 AM EDT Office Visit [facility] OPTOMETRY [address] [place] [address] Katy Del Cid, OD [address] [place] [address] documented as of this encounter Visit Diagnoses Not on filedocumented in this encounter Additional Health Concerns Assessment Noted Time PHQ-9 Depression Total Score: 0 02/19/20 24 1:15 PM EDT documented as of this encounter Care Teams Prover Relationship Specialty Start Date End Date Sarah Bradley MD [address] [place] [address] PCP - General Family Medicine 06/22/18 Aisha Savage Nipple MakerWater Purifier Operator 04/11/24 documented as of this encounter
--- OUTSIDE RECORDS SUMMARY | 2024-10-16 11:56 | XMS_ITS | Encounter Summary ---
Author Organization [employer] Address [address] [place] [address] Care Team Providers Care Rip Tailer Name Role Phone Sarah Bradley MD Primary Care Provide r Encounter Details Date Type Department Care Team ([facility] Contact Info) Description 03/22/2023 Abstract [facility] MEDICINE [address] [place] [address] Sarah Bradley MD [address] [place] [address] Social History Tobacco Use Types Packs/Day Years [...] Upcoming Encounters Date Type Department Care Team ([facility] Contact Info) Description 01/29/2025 10:30 AM EDT Office Visit [facility] OPTOMETRY [address] [place], [place] [phone] Katy Del Cid, OD [address] [place], [place] [phone] documented as of this encounter Visit Diagnoses Not on filedocumented in this encounter Additional Health Concerns Assessment Noted Time PHQ-9 Depression Total Score: 0 01/18/20 23 10:22 AM EDT documented as of this encounter Care Teams Rip Tailer Relationship Specialty Start Date End Date Sarah Bradley MD [address] [place], [place] [phone] PCP - General Family Medicine 06/22/18 Aisha Savage Skin DiverDimension Warehouse Supervisor 04/11/24 documented as of this encounter
--- OUTSIDE RECORDS SUMMARY | 2024-10-16 11:56 | XMS_ITS | Encounter Summary ---
Author Organization [employer] Address [address] [place] [address] Care Team Providers Care Press Clipper Name Role Phone Sarah Bradley MD Primary Care Provide r Encounter Details Date Type Department Care Team ([facility] st Contact Info) Description 07/26/2024 Telephone [facility] MEDICINE [address] [place], [place] [phone] Sarah Bradley MD [address] [place], [place] [phone] Social History Tobacco Use Types Packs/Day Years [...] 10:30 AM EDT Office Visit [facility] OPTOMETRY [address] [place] [address] Nehemias, Katy, OD [address] [place] [address] documented as of this encounter Visit Diagnoses Not on filedocumented in this encounter Additional Health Concerns Assessment Noted Time PHQ-9 Depression Total Score: 0 02/19/20 24 1:15 PM EDT documented as of this encounter Care Teams Press Clipper Relationship Specialty Start Date End Date Sarah Bradley MD [address] [place], [place] [phone] PCP - General Family Medicine 06/22/18 Aisha Savage Internal SalespersonHome Organizer 04/11/24 documented as of this encounter
--- OUTSIDE RECORDS SUMMARY | 2024-10-16 11:56 | XMS_ITS | Encounter Summary ---
Author Organization [employer] Address [address] [place] [address] Care Team Providers Care Trauma Manager Name Role Phone Sarah Bradley MD Primary Care Provide r Encounter Details Date Type Department Care Team ([facility] Contact Info) Description 03/22/2023 Orders Only [facility] MEDICINE [address] [place] [address] Provider, MD Yessi Social History Tobacco Use Types Packs/Day Years [...] Upcoming Encounters Date Type Department Care Team ([facility] Contact Info) Description 01/29/2025 10:30 AM EDT Office Visit [facility] OPTOMETRY [address] [place], [place] [phone] Katy Del Cid, OD [address] [place] [address] documented as of this encounter Procedures Procedure Name Priority Date/Time Associated Diagnosis Comments HM PAP/HPV Routine 02/21/2023 documented in this encounter Results * Pap Smear (02/21/2023) us Historical Provider HEALTH MAINTENANCE Final Result documented in this encounter Visit Diagnoses Not on filedocumented in this encounter Additional Health Concerns Assessment Noted Time PHQ-9 Depression Total Score: 0 01/18/20 23 10:22 AM EDT documented as of this encounter Care Teams Trauma Manager Relationship Specialty Start Date End Date Sarah Bradley MD [address] [place] [address] PCP - General Family Medicine 06/22/18 Aisha Savage Commodities TraderHealth Services Coordinator 04/11/24 documented as of this encounter
--- OUTSIDE RECORDS SUMMARY | 2024-10-16 11:56 | XMS_ITS | Encounter Summary ---
Author Organization [employer] Address [address] [place] [address] Care Team Providers Care Director Of Occupational Health Name Role Phone Sarah Bradley MD Primary [...] 10:30 AM EDT Office Visit [facility] OPTOMETRY [address] [place], [place] [id number] [place], [place], OD [address] [place] [address] documented as of this encounter Procedures Procedure [...] EST INSULIN Routine 09/30/2024 9:07 AM EST ZINC Routine 09/30/2024 9:07 AM EST VITAMIN A Routine 09/30/2024 9:07 AM EST C-REACTIVE PROTEIN Routine 09/30/2024 9: 07 AM EST VITAMIN B1 Routine 09/30/2024 9:07 AM EST HEMOGLOBIN A1C [...] EST Narrative 09/30/2024 10:16 AM EST ? [facility] ?[address] ?[place] [address] ?XRay Report ? Signed ? Patient: Sarah Sheikh Brian ?MR#: [id number] ?? [id number] ? : 1985 ?Acct:[id number] ? Age/Sex: 39 / F ?ADM Date: 09/30/24 ? Loc: HO.XRAY ? Attending Dr: Parmjit Caraballo MD ? Ordering Physician: Parmjit Caraballo MD ?? Date of Service: 09/30/24 ?? Procedure(s): XR chest 2V ?? Accession Number(s): [id number] ? cc: Sarah Bradley MD; Parmjit Caraballo [...] DD/ 0909 ? TD/TT: 09/30/24 0919 ? Wiener Packer: YOHANA ? Procedure Note Donotuseinterpreter, Image - 09/30/[address] [address] XRay Report Signed Patient: Sarah Sheikh IMR#: [id number] : 1985Acct:[id number] Age/Sex: 39 / FADM Date: 09/30/24 Loc: HO.XRAY Attending Dr: Parmjit Caraballo MD Ordering Physician: Parmjit Caraballo MD Date of Service: 09/30/24 Procedure(s): XR chest 2V Accession Number(s): [id number] cc: Sarah Bradley MD; Parmjit Caraballo MD [...] in OV> 09/30/24 1013 DD/ 0909 TD/TT: 09/30/24918 Wiener Packer: [facility] External Provider IMG XR PROCEDURES Edited Result - Final * Vitamin B1 (09/30/2024 9:07 AM EST) Vitamin B1 12 8 - 30 nmol/L LABS Comment:Vitamin supplementat ion within 24 hours prior toblood draw may affect the accuracy of the results.This test was developed and its analytical performancecharacteristics have been determined by [facility] [place], [place]. It hasnot been cleared or approved by the U.S. Food and DrugAdministration. This assay has been validated pursuantto the CLIA regulations and is used for clinicalpurposes.THIS TEST WAS PERFORMED AT:[employer] [id number] [place] [id number] RAYMOND MD,PHD 09/30/2024 9:07 AM EST 09/30/2024 9:07 AM EST Generic External Data Provider LAB BLOOD ORDERAB LES Final Result Performing Organization Address [facility] de Phone Number LABS [address] [place] [phone] * (ABNORMAL) Vitamin A (09/30/2024 9:07 AM EST) Vitamin A (Retinol) 36(A) 38 - 98 mcg/dL LABS Comment:Vitamin supplementat ion within 24 hours prior toblood draw may affect the accuracy of the results.This test was developed and its analytical performancecharacteristics have been determined by [employer] [place], [place]. It hasnot been cleared or approved by the U.S. Food and DrugAdministration. This assay has been validated pursuantto the CLIA regulations and is used for clinicalpurposes.THIS TEST WAS PERFORMED AT:[employer] [id number] [place] [id number] RAYMOND MD,PHD 09/30/2024 9:07 AM EST 09/30/2024 9:07 AM EST Generic External Data Provider LAB BLOOD ORDERAB LES Final Result Performing Organization Address [facility] Co de Phone Number LABS [address] [place] [phone] * Zinc (09/30/2024 9:07 AM EST) Zinc 71 60 - 130 mcg/dL LABS Comment:This test was develo ped and its analytical performancecharacteristics have been determined by [employer] [place], [place]. It hasnot been cleared or approved by the U.S. Food and DrugAdministration. This assay has been validated pursuantto the CLIA regulations and is used for clinicalpurposes.THIS TEST WAS PERFORMED AT:[employer]/[id number] [place] [id number] RAYMOND MD,PHD 09/30/2024 9:07 AM EST 09/30/2024 9:07 AM EST Generic External Data Provider LAB BLOOD ORDERAB LES Final Result Performing Organization Address [facility] Co de Phone Number LABS [address] [place] [phone] * Insulin (09/30/2024 9:07 AM EST) Pathologist [facility] Insulin 18 2 - 29 uU/mL LABS Comment:This test was perfor med using [...] ORDERAB LES Final Result Performing Organization Address [facility] Co de Phone Number LABS [address] [place] [phone] * TSH with Reflex to Free T4 (09/30/2024 9:07 AM EST) Pathologist [facility] TSH reflex Free T4 1.27 0.32 - 4.0 uIU/mL LABS 09/30/2024 9:07 AM EST 09/30/2024 9:07 AM EST Generic External Data Provider LAB BLOOD ORDERAB LES Final Result LABS [address] [place] [phone] * (ABNORMAL) Vitamin D, 25-Hydroxy, Total, Immunoassay (09/30/2024 9:07 AM EST) Vitamin D 25-OH Total 22.6(L) >30 ng/mL LABS Comment:Health Based Referen ce Values*< 20 ng/mL [id number] ng/mL Insufficient> 30 ng/mL Sufficient*Red ODONNELL. N [...] Provider LAB BLOOD ORDERAB LES Final Result LABS [address] [place] [phone] * Ferritin (09/30/2024 9:07 AM EST) Ferritin 10 10 - 122 ng/mL LABS 09/30/2024 9:07 AM EST 09/30/2024 9:07 AM EST Generic External Data Provider LAB BLOOD ORDERAB LES Final Result Performing Organization Address City/[facility]/ZIP Co de Phone Number LABS [address] [place] [phone] * Vitamin B12 (Cobalamin) and Folate Panel, Serum (09/30/2024 9:07 AM EST) Vitamin B12 508 200 - 900 pg/mL LABS Comment:NORMAL 200-900 PG/ML INDETERMINATE 160-199 PG/ML DEFICIENT < 160 PG/ML Folate 13.1 > or = 4.0 ng/mL LABS Comment:Reference Values:> o r = 4.0 ng/mL< 4.0 ng/mL suggests folate deficiency Methotrexate, aminopterin and folinic acid(leucovorin) are chemotherapeutic agents whose molecularstructures are similar to folate; therefore, the Architectfolate assay cannot be used for patients using these drugs. 09/30/2024 9:07 AM EST 09/30/2024 9:07 AM EST [employer] External Data Provider LAB BLOOD ORDERAB LES Final Result Performing Organization Address [facility] Co de Phone Number LABS [address] [place] [phone] * (ABNORMAL) Lipid Panel, Standard (09/30/2024 9:07 AM EST) Triglycerides 150(H) <150 mg/dL [facility] LABS Comment:Desirable Triglyceri de: less than 150 mg/dLBorderline High Triglyceride 150-199 mg/dLHigh Triglyceride: 200-499 mg/dLVery High Triglyceride: greater than or equal to 5OO mg/dL Cholesterol 170 <200 mg/dL LABS Comment:Desirable Cholestero l: less than 200 mg/dLBorderline High Cholesterol: 200-239 mg/dLHigh Cholesterol: greater than 239 mg/dL LDL Cholesterol Calculated 101(H) <100 mg/dL LABS Comment:Desirable LDL: less than 100 mg/dLNear Optimal/Above Optimal LDL: 110- 129 mg/dLBorderline High LDL: 130-159 mg/dLHigh LDL: 160-189 mg/dLVery High LDL: greater than or equal to 190 mg/dL HDL Cholesterol 39(L) >40 mg/dL [facility] LABS Comment:Desirable HDL: great er than 40 mg/dL Note: This HDL assay may give artificially low results in patients with liver disease. 09/30/2024 9:07 AM EST 09/30/2024 9:07 AM EST us Generic External Data Provider LAB BLOOD ORDERAB LES Final Result Performing Organization Address [facility] Co de Phone Number LABS [address] [place] [phone] * C-reactive Protein (09/30/2024 9:07 AM EST) C Reactive Protein 0.47 < or = 0.50 mg/dL LABS 09/30/2024 9:07 AM EST 09/30/2024 9:07 AM EST Generic External Data Provider LAB BLOOD ORDERAB LES Final Result Performing Organization Address [facility] Phone Number LABS [address] [place] [phone] * (ABNORMAL) Iron And Total Iron Binding Capacity (09/30/2024 9:07 AM EST) Iron 33 30 - 160 mcg/dL LABS Total Iron Binding Capacity 396 228 - 428 mcg/dL LABS Percent Iron Saturation 8(L) 15 - 50 % LABS Unsaturated Iron Binding 363 ug/dL LABS 09/30/2024 9:07 AM EST 09/30/2024 9:07 AM EST Generic External Data Provider LAB BLOOD ORDERAB LES Final Result Performing Organization Address [facility] Co de Phone Number LABS [address] [place] [phone] * (ABNORMAL) Comprehensive Metabolic Panel (09/30/2024 9:07 AM EST) Sodium 138 135 - 145 mmol/L LABS Potassium 3.8 3.3 - 5.1 mmol/L LABS Chloride 108 96 - 108 mmol/L LABS Carbon Dioxide 26 22 - 29 mmol/L LABS Anion Gap 8(L) 12 - 20 LABS Urea Nitrogen (BUN) 27(H) 9 - 16 mg/dL LABS Creatinine, Serum 0.70 0.5 - 1.4 mg/dL LABS Estimated Glomerular Filt Rate >60 LABS Comment:Chronic Kidney Disea se: Estimated GFR < 60 mL/min/[id number] Kidney Disease: Estimated GFR < 15 mL/min/1.73m2 Glucose 108 60 - 115 mg/dL LABS Calcium 9.1 8.4 - 10.2 mg/dL LABS Bilirubin, Total 0.3 0.0 - 1.0 mg/dL LABS Aspartate Amino Transferase 22 5 - 31 U/L LABS Alanine Aminotransferase 17 0 - 31 U/L LABS Total Protein 8.4(H) 6.5 - 8.0 g/dL LABS Albumin Level 4.4 3.5 - 5.0 g/dL LABS Alkaline Phosphatase 74 39 - 117 U/L LABS 09/30/2024 9:07 AM EST 09/30/2024 9:07 AM EST us Generic External Data Provider LAB BLOOD ORDERAB LES Final Result LABS [address] [place] [phone] * Hemoglobin A1c (09/30/2024 9:07 AM EST) Hemoglobin A1c 5.9 <6.0 % [facility] LABS Comment:Hemoglobin A1C Refer ence Range Adults: 4.8 - 6.0 % Non diabetic: < 6.0 % Goal: < 7.0 %Additional Action Suggested: > 8.0 %Note: Hemoglobin A1c results are invalid for patients with abnormal amounts of HbF. Blood transfusions may impact the HbA1c concentration in the patient sample. Estimated Average Glucose 123 mg/dL LABS Comment:eAG = Estimated ave rage glucose which is %A1C expressed asaverage glucose, using the formula of the G4M-XmuyagjOehluny Glucose study (ADAG), Diabetes Care, Vol.31,#8,2007 09/30/2024 9:07 AM EST 09/30/2024 9:07 AM EST us Generic External Data Provider LAB BLOOD ORDERAB LES Final Result LABS [address] [place] [phone] * (ABNORMAL) CBC auto differential (09/30/2024 9:07 AM EST) White Blood Count 6.8 4.8 - 10.8 X10*3/uL LABS Red Blood Count 4.57 4.20 - 5.50 X10*6/uL LABS Hemoglobin 11.5(L) 12.0 - 16.0 g/dl LABS Hematocrit 37.5 37.0 - 47.0 % LABS Mean Corpuscular Volume 82.1 80.0 - 98.0 fL LABS Mean Corpuscular Hemoglobin 25.2(L) 27.0 - 33.0 pg LABS Mean Corpuscular HGB Conc 30.7(L) 31.0 - 35.0 g/dl LABS Red Cell Distribution Width 15.2 11.0 - 16.0 % LABS Platelet Count 286 160 - 400 X10*3/uL LABS Mean Platelet Volume 11.0 9.4 - 12.3 fL LABS Neutrophils Percent Auto 70.2 45 - 73 % LABS Imm Gran Pct Auto 0.4 0.0 - 0.4 % LABS Lymphocytes Percent Auto 20.6 20 - 40 % LABS Monocytes Percent Auto 6.1 2 - 11 % LABS Eosinophils Percent Auto 2.3 0 - 4 % LABS Basophils Percent Auto 0.4 0 - 2 % LABS NRBC Pct Auto 0.0 0.0 - 0.2 /100WBC LABS Neutrophils Absolute Auto 4.8 2.0 - 8.3 x10*3/uL LABS Imm Gran Abs Auto 0.03 0.00 - 0.03 X10*3/uL LABS Lymphocytes Absolute Auto 1.4 1.2 - 4.9 X10*3/uL LABS Monocytes Absolute Auto 0.4 0.1 - 1.2 X10*3/uL LABS Eosinophils Absolute Auto 0.2 0.0 - 0.4 X10*3/uL LABS Basophils Absolute Auto 0.0 0.0 - 0.2 X10*3/uL LABS NRBC Abs Auto 0.000 0.0 - 0.012 X10*3/uL LABS 09/30/2024 9:07 AM EST 09/30/2024 9:07 AM EST us Generic External Data Provider LAB BLOOD ORDERAB LES Final Result LABS [address] [place] [phone] documented in this encounter Visit Diagnoses Not on filedocumented in this encounter Additional Health Concerns Assessment Noted Time PHQ-9 Depression Total Score: 0 02/19/20 24 1:15 PM EDT documented as of this encounter Care Teams Director Of Occupational Health Relationship Specialty Start Date End Date Sarah Bradley MD [address] [place] [phone] PCP - General Family Medicine 06/22/18 Aisha Savage [employer] 04/11/24 documented as of this encounter
--- OUTSIDE RECORDS SUMMARY | 2024-10-16 11:56 | XMS_ITS | Clinical Summary ---
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 Name Role Phone Sarah Bradley MD Primary Care Provide r Allergies Active Allergy Reactions Criticality Noted Date Comments Latex 09/01/2022 Medications Alcohol Swabs ([facility] Prep) 70 % pads PLEASE USE DIRECTED FOR FOUR TIMES DAILY BLOOD GLUCOSE MONITORING IN 2 Active Aspirin Low Dose 81 MG EC tablet TAKE 2 TABLETS BY MOUTH EVERY DAY 2 Active Blood Glucose Monitoring Suppl (FreeStyle [place] Lite) w/Device kit TEST 4 TIMES A [...] (BMI) of 37.0 to 37.9 in adult (CMS/[facility]) Take 1 capsule (15 mg) by mouth [...] DEPARTMENT Provider, Generic External Data 08/12/2024 Refill [facility] [address] [place] [address] Sarah Bradley MD Acquired hypothyroidism; Impaired glucose tolerance test; Primary hypertension 08/05/2024 Orders Only [facility] External Provider, [facility] 07/26/2024 Telephone [facility] [address] [place] [address] Sarah Bradley MD from Last [...] is your housing situation today? I have byronaissatou lewis 02/06/[address] you [...] 06/07/2024 12:58 PM EDT Plan of Treatment Upcoming Encounters Date Type Department Care Team (Late st Contact Info) Description 01/29/2025 10:30 AM EDT Office Visit [facility]ET[facility] [address] [place] [address] [place], [place], OD [address] [place] [address] Health Maintenance Due Date Last Done Comments Alcohol/Substance Use Screening 1999 Family Planning (PISQ) 2002 Hepatitis B Vaccines (1 of 3 - 19+ 3-dose series) 2006 Pneumococcal Vaccine: Pediatrics (0 to 5 Years) and At-Risk Patients (6 to 49) Years) (1 of 2 - PCV) 2006 Dental Prophylaxis 06/17/2021 12/15/2020, 10/31/2012 Dental Oral Exam 09/02/2023 03/02/2023, , 11/27/2020 Dental X-Ray: Full Mouth 11/29/2023 11/27/2020, 11/0 02/2008 Dental X-Ray: Bitewings 03/03/2024 03/02/20 23, 02/09/2023, 11/27/2020, Additional history exists COVID-19 Vaccine (2 - 2023- season) 2024 08/24/2021 Influenza Vaccine (#1) 2024 , 11/12/2019, 06/22/2018, Additional history exists SDOH Screening 02/05/2025 02/06/2024 Depression Screening 02/18/2025 02/19/2024, 02/19/20 Tobacco Screening 05/21/2025 05/21/2024 Diabetes: Hemoglobin A1C 09/30/2025 025, 01/20/2023, 09/01/2020 Cervical Cancer Screening 02/21/2026 HPV/Cotest 02/21/2026 12/08/2021, 04/0 02/2022, 12/03/2020, Additional history exists Pap Smear 02/21/2026 02/21/2023, 02/03, 12/09/2021, Additional history exists Lipid Panel 09/30/2029 09/30/2024, 05/1 05/2023, 09/01/2020 DTaP/Tdap/Td Vaccines (4 - Td or [...] VIEWS Routine 09/30/2024 9:09 AM EST VITAMIN B1 Routine 09/30/2024 9:07 AM EST VITAMIN A Routine 09/30/2024 9:07 AM EST ZINC Routine 09/30/2024 9:07 AM EST INSULIN Routine [...] EST Narrative 09/30/2024 10:16 AM EST ? [facility] ?[address] ?[place] [address] ?XRay Report ? Signed ? Patient: Sarah Sheikh I ?MR#: [id number] ?? [id number] ? : 1985 ?Acct:[id number] ? Age/Sex: 39 / F ?ADM Date: 09/30/24 ? Loc: HO.XRAY ? Attending Dr: Parmjit Caraballo MD ? Ordering Physician: Parmjit Caraballo MD ?? Date of Service: 09/30/24 ?? Procedure(s): XR chest 2V ?? Accession Number(s): [id number] ? cc: Sarah Bradley MD; Parmjit Caraballo [...] AM EST RP ? Dictated By: ?Bhargavi,Sid Martínez MD ? Signed By: ?<Electronically signed by Sid Burk MD in OV> ?09/30/24 1013 ? DD/ 0909 ? TD/TT: 09/30/24 0919 ? Laborer Cutting Tool: YOHANA ? Procedure Note Donotabrahaminterpreter, Image - 09/30/[address] [address] XRay Report Signed Patient: Sarah Sheikh IMR#: [id number] : 1985Acct:[id number] Age/Sex: 39 / FADM Date: 09/30/24 Loc: HO.ABBYAY Attending Dr: Parmjit Caraballo MD Ordering Physician: Parmjit Caraballo MD Date of Service: 09/30/24 Procedure(s): XR chest 2V Accession Number(s): [id number] cc: Sarah Bradley MD; Parmjit Caraballo MD [...] OV> 09/30/24 1013 DD/ 0909 TD/TT: 09/30/24918 Laborer Cutting Tool: YOHANA [facility] External Provider IMG XR PROCEDURES Edited Result - Final * (ABNORMAL) Vitamin D, 25-Hydroxy, Total, Immunoassay (09/30/2024 9:07 AM EST) Vitamin D 25-OH Total 22.6(L) >30 ng/mL [facility] Comment:Health Based Referen ce Values*< 20 ng/mL Zrjewefws18-02 ng/mL Insufficient> 30 ng/mL Sufficient*Red ODONNELL. N [...] ORDERAB LES Final Result Performing Organization Address [facility]/ZIP Co de Phone Number [facility] [address] [place] [phone] * Vitamin B12 (Cobalamin) and Folate Panel, Serum (09/30/2024 9:07 AM EST) Vitamin B12 508 200 - 900 pg/mL [facility] Comment:NORMAL 200-900 PG/ML INDETERMINATE 160-199 PG/ML DEFICIENT < 160 PG/ML Folate 13.1 > or = 4.0 ng/mL [facility] Comment:Reference Values:> o r = 4.0 ng/mL< 4.0 ng/mL suggests folate deficiency Methotrexate, aminopterin and folinic acid(leucovorin) are chemotherapeutic agents whose molecularstructures are similar to folate; therefore, the Architectfolate assay cannot be used for patients using these drugs. 09/30/2024 9:07 AM EST 09/30/2024 9:07 AM EST us Generic External Data Provider LAB BLOOD ORDERAB LES Final Result Performing Organization Address City/[facility]/ZIP Co de Phone Number [facility] [address] [place] [phone] [phone] * TSH with Reflex to Free T4 (09/30/2024 9:07 AM EST) Pathologist [facility] TSH reflex Free T4 1.27 0.32 - 4.0 uIU/mL [facility] 09/30/2024 9:07 AM EST 09/30/2024 9:07 AM EST us Generic External Data Provider LAB BLOOD ORDERAB LES Final Result [facility] [address] [place] [address] [phone] * (ABNORMAL) CBC auto differential (09/30/2024 9:07 AM EST) [facility] White Blood Count 6.8 4.8 - 10.8 X10*3/uL [facility] Red Blood Count 4.57 4.20 - 5.50 X10*6/uL [facility] Hemoglobin 11.5(L) 12.0 - 16.0 g/dl [facility] Hematocrit 37.5 37.0 - 47.0 % [facility] Mean Corpuscular Volume 82.1 80.0 - 98.0 fL [facility] Mean Corpuscular Hemoglobin 25.2(L) 27.0 - 33.0 pg [facility] Mean Corpuscular HGB Conc 30.7(L) 31.0 - 35.0 g/dl [facility] Red Cell Distribution Width 15.2 11.0 - 16.0 % [facility] Platelet Count 286 160 - 400 X10*3/uL [facility] Mean Platelet Volume 11.0 9.4 - 12.3 fL [facility] Neutrophils Percent Auto 70.2 45 - 73 % [facility] Imm Gran Pct Auto 0.4 0.0 - 0.4 % [facility] Lymphocytes Percent Auto 20.6 20 - 40 % [facility] Monocytes Percent Auto 6.1 2 - 11 % [facility] Eosinophils Percent Auto 2.3 0 - 4 % [facility] Basophils Percent Auto 0.4 0 - 2 % [facility] NRBC Pct Auto 0.0 0.0 - 0.2 /100WBC [facility] Neutrophils Absolute Auto 4.8 2.0 - 8.3 x10*3/uL [facility] Imm Gran Abs Auto 0.03 0.00 - 0.03 X10*3/uL [facility] Lymphocytes Absolute Auto 1.4 1.2 - 4.9 X10*3/uL [facility] Monocytes Absolute Auto 0.4 0.1 - 1.2 X10*3/uL [facility] Eosinophils Absolute Auto 0.2 0.0 - 0.4 X10*3/uL [facility] Basophils Absolute Auto 0.0 0.0 - 0.2 X10*3/uL [facility] NRBC Abs Auto 0.000 0.0 - 0.012 X10*3/uL [facility] 09/30/2024 9:07 AM EST 09/30/2024 9:07 AM EST us Generic External Data Provider LAB BLOOD ORDERAB LES Final Result Performing Organization Address [facility] Co de Phone Number [facility] [address] [place] [phone] * (ABNORMAL) Iron And Total Iron Binding Capacity (09/30/2024 9:07 AM EST) Iron 33 30 - 160 mcg/dL [facility] Total Iron Binding Capacity 396 228 - 428 mcg/dL [facility] Percent Iron Saturation 8(L) 15 - 50 % [facility] Unsaturated Iron Binding 363 ug/dL [facility] 09/30/2024 9:07 AM EST 09/30/2024 9:07 AM EST us Generic External Data Provider LAB BLOOD ORDERAB LES Final Result [facility] [address] [place] [phone] * Insulin (09/30/2024 9:07 AM EST) Insulin 18 2 - 29 uU/mL [facility] Comment:This test was perfor med using [...] ORDERAB LES Final Result Performing Organization Address [facility] Co [facility] Number [facility] [address] [place] [phone] * Zinc (09/30/2024 9:07 AM EST) Zinc 71 60 - 130 mcg/dL [facility] Comment:This test was develo ped and its analytical performancecharacteristics have been determined by [employer] [place], [place]. It hasnot been cleared or approved by the U.S. Food and DrugAdministration. This assay has been validated pursuantto the CLIA regulations and is used for clinicalpurposes.THIS TEST WAS PERFORMED AT:[facility] [place] [address]AHOLKODMEERA RAYMOND MD,PHD 09/30/2024 9:07 AM EST 09/30/2024 9:07 AM EST us Generic External Data Provider LAB BLOOD ORDERAB LES Final Result Performing Organization Address [facility] Co de Phone Number [facility] [address] [place] [phone] * (ABNORMAL) Vitamin A (09/30/2024 9:07 AM EST) Vitamin A (Retinol) 36(A) 38 - 98 mcg/dL [facility] Comment:Vitamin supplementat ion within 24 hours prior toblood draw may affect the accuracy of the results.This test was developed and its analytical performancecharacteristics have been determined by [employer] [place], [place]. It hasnot been cleared or approved by the U.S. Food and DrugAdministration. This assay has been validated pursuantto the CLIA regulations and is used for clinicalpurposes.THIS TEST WAS PERFORMED AT:[facility] [place] [address]BAYVBLHMEERA RAYMOND MD,PHD 09/30/2024 9:07 AM EST 09/30/2024 9:07 AM EST Generic External Data Provider LAB BLOOD ORDERAB LES Final Result Performing Organization Address [facility]/ZIP Co de Phone Number [facility] [address] [place] [phone] * C-reactive Protein (09/30/2024 9:07 AM EST) [facility] C Reactive Protein 0.47 < or = 0.50 mg/dL [facility] 09/30/2024 9:07 AM EST 09/30/2024 9:07 AM EST Generic External Data Provider LAB BLOOD ORDERAB LES Final Result Performing Organization Address [facility]/ZIP Co de Phone Number [facility] [address] [place] [phone] * Vitamin B1 (09/30/2024 9:07 AM EST) Vitamin B1 12 8 - 30 nmol/L [facility] Comment:Vitamin supplementat ion within 24 hours prior toblood draw may affect the accuracy of the results.This test was developed and its analytical performancecharacteristics have been determined by [employer] [place], [place]. It hasnot been cleared or approved by the U.S. Food and DrugAdministration. This assay has been validated pursuantto the CLIA regulations and is used for clinicalpurposes.THIS TEST WAS PERFORMED AT:[facility] [place] [address]XMXMHQLMEERA RAYMOND MD,PHD 09/30/2024 9:07 AM EST 09/30/2024 9:07 AM EST us Generic External Data Provider LAB BLOOD ORDERAB LES Final Result Performing Organization Address [facility] Co de Phone Number [facility] [address] [place] [phone] * Hemoglobin A1c (09/30/2024 9:07 AM EST) Hemoglobin A1c 5.9 <6.0 % [facility] Comment:Hemoglobin A1C Refer ence Range Adults: 4.8 - 6.0 % Non diabetic: < 6.0 % Goal: < 7.0 %Additional Action Suggested: > 8.0 %Note: Hemoglobin A1c results are invalid for patients with abnormal amounts of HbF. Blood transfusions may impact the HbA1c concentration in the patient sample. Estimated Average Glucose 123 mg/dL [facility] Comment:eAG = Estimated ave rage glucose which is %A1C expressed asaverage glucose, using the formula of the R3U-LcycoqiZejhqyz Glucose study (ADAG), Diabetes Care, Vol.31,#8,Apr. 2007 09/30/2024 9:07 AM EST 09/30/2024 9:07 AM EST Generic External Data Provider LAB BLOOD ORDERAB LES Final Result Performing Organization Address [facility] Co de Phone Number [facility] [address] [place] [phone] * Ferritin (09/30/2024 9:07 AM EST) Ferritin 10 10 - 122 ng/mL [facility] 09/30/2024 9:07 AM EST 09/30/2024 9:07 AM EST Generic External Data Provider LAB BLOOD ORDERAB LES Final Result Performing Organization Address City/[facility]/ZIP Co de Phone Number [facility] [address] [place] [phone] * (ABNORMAL) Lipid Panel, Standard (09/30/2024 9:07 AM EST) Triglycerides 150(H) <150 mg/dL [facility] Comment:Desirable Triglyceri de: less than 150 mg/dLBorderline High Triglyceride 150-199 mg/dLHigh Triglyceride: 200-499 mg/dLVery High Triglyceride: greater than or equal to 5OO mg/dL Cholesterol 170 <200 mg/dL [facility] Comment:Desirable Cholestero l: less than 200 mg/dLBorderline High Cholesterol: 200-239 mg/dLHigh Cholesterol: greater than 239 mg/dL LDL Cholesterol Calculated 101(H) <100 mg/dL [facility] Comment:Desirable LDL: less than 100 mg/dLNear Optimal/Above Optimal LDL: 110- 129 mg/dLBorderline High LDL: 130-159 mg/dLHigh LDL: 160-189 mg/dLVery High LDL: greater than or equal to 190 mg/dL HDL Cholesterol 39(L) >40 mg/dL [facility] Comment:Desirable HDL: great er than 40 mg/dL Note: This HDL assay may give artificially low results in patients with liver disease. 09/30/2024 9:07 AM EST 09/30/2024 9:07 AM EST us Generic External Data Provider LAB BLOOD ORDERAB LES Final Result Performing Organization Address City/[facility]/ZIP Co de Phone Number [facility] [address] [place] [phone] * (ABNORMAL) Comprehensive Metabolic Panel (09/30/2024 9:07 AM EST) Sodium 138 135 - 145 mmol/L [facility] Potassium 3.8 3.3 - 5.1 mmol/L [facility] Chloride 108 96 - 108 mmol/L [facility] Carbon Dioxide 26 22 - 29 mmol/L [facility] Anion Gap 8(L) 12 - 20 [facility] Urea Nitrogen (BUN) 27(H) 9 - 16 mg/dL [facility] Creatinine, Serum 0.70 0.5 - 1.4 mg/dL [facility] Estimated Glomerular Filt Rate >60 [facility] Comment:Chronic Kidney Disea se: Estimated GFR < 60 mL/min/1.90l4Jeaemm Kidney Disease: Estimated GFR < 15 mL/min/1.73m2 Glucose 108 60 - 115 mg/dL [facility] Calcium 9.1 8.4 - 10.2 mg/dL [facility] Bilirubin, Total 0.3 0.0 - 1.0 mg/dL [facility] Aspartate Amino Transferase 22 5 - 31 U/L [facility] Alanine Aminotransferase 17 0 - 31 U/L [facility] Total Protein 8.4(H) 6.5 - 8.0 g/dL [facility] Albumin Level 4.4 3.5 - 5.0 g/dL [facility] Alkaline Phosphatase 74 39 - 117 U/L [facility] 09/30/2024 9:07 AM EST 09/30/2024 9:07 AM EST us Generic External Data Provider LAB BLOOD ORDERAB LES Final Result [facility] [address] [place] [phone] * HCG, Qualitative, Urine (08/13/2024 9:10 AM EST) Urine NEGATIVE NEGATIVE [facility] Comment:This test was develo ped to detect early . Falsenegative results may occur after the 5th - 7th week ofpregnancy when using this test method. If clinicallyindicated, consider a serum hCG. 08/13/2024 9:10 AM EST 08/13/2024 9:17 AM EST us Generic External Data Provider LAB URINE ORDERAB LES Final Result Performing Organization Address City/State/[facility] Co de Phone Number [facility] [address] [place] [phone] * CT Abdomen Pelvis w/o Contrast (08/05/2024 8:02 AM EST) Anatomical Region Laterality Modality Body, Pelvis, Abdomen Computed T omography 08/05/2024 8:02 AM EST Narrative 09/16/2024 1:12 PM EST ? [facility] ?[address] ?[place] [address] ? CT Scan Report ? Signed ? Patient: Aguilar,Sarah I ?MR#: [id number] ?? [id number] ? : 1985 ?Acct:[id number] ? Age/Sex: 39 / F ?ADM Date: 08/05/24 ? Loc: HO.CT ? Attending Dr: Osbaldo Herron MD ? Ordering Physician: Osbaldo Herron MD ?? Date of Service: 08/05/24 ?? Procedure(s): CT abdomen pelvis wo IV con ?? Accession Number(s): [id number] ? cc: Sarah Bradley MD; Osbaldo Herron MD ? Report Number: ?? [id number]: Total DLP = ??870.00 mGy-cm ?? EXAMINATION: [...] 09/16/24 1309 ? DD/ 1 ? TD/TT: 08/05/24 0806 ? Laborer Cutting Tool: ? Procedure Note Donotuseinterpreter, Image - 09/16/[address] [address] [address] Scan Report Signed Patient: Sarah Sheikh IMR#: [id number] : 1985Acct:[id number] Age/Sex: 39 / FADM Date: 08/05/24 Loc: HO.CT Attending Dr: Osbaldo Herron MD Ordering Physician: Osbaldo Herron MD Date of Service: 08/05/24 Procedure(s): CT abdomen pelvis wo IV con Accession Number(s): [id number] cc: Sarah Bradley MD; Osbaldo Herron MD Report Number: [id number]: Total DLP = 870.00 mGy-cm EXAMINATION: CT [...] by: Sky Villalobos MD 09/16/2024 01:09 PM [facility] Dictated By: Sky Stinson MD Signed By: <Electronically signed by Sky Chahal MDin OV> 09/16/24 1309 DD/ 0802 TD/TT: 08/05/24 0806 Laborer Cutting Tool: [facility] External Provider IMG CT PROCEDURES Edited Result - Final * Hm Pap Smear (02/21/2023) Historical Provider HEALTH MAINTENANCE Final Result * HPV E6/E7 RFLX CLAIRE 16 18/45 (12/08/2021 10:43 AM EDT) HPV mRNA E6/E7 rflx Not Detected Not Detected [facility] Comment: Methodology: Asset Protection Greeter-Mediated Amplification This assay detects E6/E7 viral messenger RNA (mRNA) from 14 high-risk HPV types (16,18,31,33,35,39,45,51,52,56,58,59,66,68). The analytical performance characteristics of this assay have been determined by [employer]. The modifications have not been cleared or approved by the FDA. This assay has been validated pursuant to the CLIA regulations and is used for clinical purposes. For additional information, please refer to http://education.TiVUS/faq/UWU280r6 (This link if provided for information/ educational purposes only.) THIS TEST WAS PERFORMED AT: [employer] [address] [place] [address] [address] [facility] [place], [place] ??[phone] KLAUS BRASHER MD 12/08/2021 10:4 3 AM EDT Laine Zamora HISTORICAL/NON ORDERABLE LABS Fi nal Result Performing Organization Address [facility] Phone Number [facility] [place] [address], * HEPATITIS C ANTIBODY (11/16/2019 10:03 AM EDT) Pathologist [facility] HEPATITIS C ANTIBODY NONREACTIVE NONREACTIVE [facility] Comment: Antibodies to HCV not detected; does not exclude early acute HCV infection. 11/16/2019 10:0 3 AM EDT Laine Zamora HISTORICAL/NON ORDERABLE LABS Fi nal Result Performing Organization Address [facility] [place] [address], * HIV AB/AG (11/16/2019 10:03 AM EDT) HIV AG/AB NONREACTIVE [facility] [...] detection of this assay. ?? The [employer] Publicity Manager HIV Ag/Ab Combo assay result and supplemental assay results should be interpreted in conjunction with the patient's clinical presentation, history and other laboratory results. ??If the results are inconsistent with clinical evidence, additional testing is suggested to confirm the result. 11/16/2019 10:0 3 AM EDT us Laine Zamora HISTORICAL/NON ORDERABLE LABS Fi nal Result [facility] [address] from Last 3 Months or Most Recently Relevant to Health Maintenance Insurance * Guarantor: Sarah Sheikh I Account Type Relation to Patient Date of Phone Billing Address Personal/Family Self [address] [place] [address] [facility] C[facility] MEDICAID STAND ADULT * Guarantor: Sarah Sheikh I Account Type Relation to Patient Date of Phone Billing Address Personal/Family Self [address] [place] [address] Care Teams Amusement Park Entertainer Relationship Specialty Start Date End Date Sarah Bradley MD [address] [place] [address] PCP - General Family Medicine 06/22/18 Aisha aSvage Decision AnalystReheater 04/11/24
== END ==
PROVIDERS: PCP Internal Medicine; Visit Provider Counselor Mental Health
DX: F43.23 Adjustment disorder with mixed anxiety and depressed mood (principal)
CPT/HCPCS: 90834

== ENCOUNTER → 2024-10-16 10:06 | Outpatient (BNVA) | payer MEDICAID, SELFPAY | PROVIDERS: PCP Internal Medicine; Visit Provider Counselor Mental Health | DX: E66.9 Obesity, unspecified (principal); R73.03 Prediabetes; Z68.37 Body mass index [BMI] 37.0-37.9, adult | CPT/HCPCS: 99212 ==

== ENCOUNTER → 2024-10-16 13:05 | Outpatient (AMB) | payer MEDICAID, SELFPAY ==
--- NOTE | 2024-10-16 13:06 | MHC.OFFVIS ---
Vital Signs 10/16/24 13:07 Height 4 ft 11 in Weight 183 lb 3.266 oz BMI 37.0 BP 110/68 Blood Pressure Location Lt brachial Position Sitting Pulse 76 Pulse Source Pulse Oximeter Pulse Oximetry (%) 96 Oxygen Delivery Method Room Air Intake Visit Reasons: F/U PCOS Intake Note: Patient present today for follow up to PCOS. Assistant Chief Train Dispatcher Required: Yes Assistant Chief Train Dispatcher Language: Manager School Services: Assistant Chief Train Dispatcher Offered & Declined Accompanied by: Friend Allergies latex [LATEX] Allergy (Intermediate, Verified 10/16/24 13:11) HANDS SWELL Medication List - Last Reconciled 10/16/24 by Savannah Handy MD albuterol sulfate 90 mcg/actuation (ProAir HFA) 2 puffs inhalation Q4H PRN levothyroxine 137 mcg PO QAM metformin 500 mg PO BID nifedipine ER 60 mg PO QAM phentermine 15 mg PO DAILY tirzepatide (weight loss) (Zepbound) 2.5 mg (0.5 mL) subcut QWEEK HPI Comments Details: 39-year-old female coming in today for follow up of PCOS and obesity Here today with Shellie her friend/neighbor who is doing the interpretation HPI from initial visit 06/14/24 Says she was diagnosed with PCOS 4 years ago She was reporting heavy irregular menstrual bleeding with control , she on implant plus progesterone injections tried around that time Currently using condoms IUD taken out in December 2023 Mirena because she felt she was gaining weight on the Mirena. Though after taking out the IUD she has not lost any weight. She is not currently planning any . Currently sexually active with , uses condoms 2 years . pregnancies 4 1 vaginal 3 ceaserian sections Oldest child 16 years Youngest 2 months old 2 youngest kids are from current marriage Regular periods when she is not on any control Follows with director of search engine marketing here HAs history of ASCUS BMI 39 .1 kg/m2 Weight currenltt 193 lbs is highest it has ever been Used to weigh 135 lbs up until her third , gained weight during , hasnt lost aftet that pregancy, she showed me her old pictures when she was weighing much less. She is interested in weight loss surgery Meds currently Has been on metformin since 2022, was briefly stopped in August 2024 due to improved sugars. She reports did not require any insulin during gestational diabetes. She was on oral medications. No acne only few chin hair , not excessive No other hirsutism Feels like she does have hair loss diffusely not particulary any pattern HAs hypothyroidism, biochemically euthyroid per recent labs, on 137 mcg of levothyroxine No easy bruising, no proximal muscle weakness, no abdominal striae. No facial plethora. No change in ring size or shoe size. Has a history of hypothyroidism, currently on levothyroxine 137 mcg daily. Umbilical Hernia surgery 2019, now with recurrence and needs repair, seeing gen surgery Because of hernia recurrence she has not been exercising recently gets abd pain OTherwise was walking 4 times a week for 30 mins Diet: Lots of fruits and vegetables and salad Uses air fryer Eats out only once a week No sugary drinks 3 meals a day , no snacks Breakfast: oatmeal or scrambled eggs with salad Lunch: Fish with some salad, Tuna fish with crackers Dinner: about the same as lunch , fried plantains , fruit smoothies Not using any calorie counting apps currently Low libido since 4 months becuase of the way she feels about her body Interval history 09/06/24 BMI 39 kg/m2, current weight 192 lbs Exercise : still walking 4 times a week 30 mins Intermittent fasting since 4 weeks so August 2024, doesnt eat 10 to 12 hrs in the day Didnt get a chance to download phone travon LOSE IT She is interested in weight loss meds. No active anxiety or depression issues . Sees therapist. Has history of anxiety and sleep issues but well controlled on trazodone No kidney stones No migraines currently No eye problems last eye visit 2023 Still using condoms LMP : 08/16/24 Interval history 10/16/2024 BMI 37 kg per m2, current weight 183 lb Started phentermine 09/13/24 , 4 weeks ago , takes it 10 AM , away from her thyroid meds at 7 AM Weight and waist circumference every month for the first 3 months, then at 3-month intervals ([employer] 2015); Blood pressure is normal today Patient denies any MEAT SERVICE TEAM MEMBER side effects (eg, delirium, kamryn, psychosis); denies signs/symptoms of primary pulmonary hypertension (eg, new-onset dyspnea, chest pain, syncope, lower extremity edema) no constipation or dry mouth Diet: calorie deifict diet using calori counter Exercise: walking but not much saw bariatric surgery team 09/20/24: plan is to lose weight down to target f 168 lbs prior to sleeve gastrectomy Awaiting supervisor carbon electrodes appointment referral in place Also seeing weight management therapy Using condoms LMP : 09/17/24 Also now on metformin 500 mg BID for prediabetes restarted by PCP in Sep when A1c was noted to be 5.9% in September 2024 up from 5.6% .PA for both Wegovy and Zepbound denied , weight managent clinic working on a second PA for zepbound per last message note 09/27/24 Comorbids KELL on CPAP Prediabetes on metformin HTN on nifedipine well controlled Has history of gestational DM HLD on pravastatin 40 mg daily No history of MA or stroke Social history Never smoker No alcohol use No drug use currently 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 Lives with and children Has a daughter with autism so has her hands full at home Physical exam General: sitting comfortably in no acute distress, no excessive hair noted on face, abdomen HEENT: normocephalic/atraumatic,, moist oral mucosa Neck: supple, symmetrical, no thyromegaly , does have dorsocervical or supraclavicular fat pads Cardiac: normal heart sounds Pulm: normal breath sounds B/L Abd: not distended, no tenderness, umbilical hernia noted, no abnormal purple striae Extremities: no edema, no signs of myxedema Neuro: AAO x3, Speech: normal, no facial droop, moving all 4 extremities Laboratory Tests 06/22/18 03/18/20 03/23/20 10:38 12:57 11:01 Creatinine Estimated GFR Fasting Glucose Glucose 1 Hour Glucose 2 Hour Glucose 3 Hour Hemoglobin A1c 5.3 Glucose 1 Hr 50 gm 162 H 155 H Hemoglobin A1c % AST ALT Triglycerides 172 Cholesterol 232 LDL Cholesterol, Calc 155 HDL Cholesterol 43 TSH Free T4 Prolactin 03/24/20 03/24/20 03/24/20 08:50 09:55 10:55 Creatinine Estimated GFR Fasting Glucose 92 Glucose 1 Hour 146 Glucose 2 Hour 137 Glucose 3 Hour Hemoglobin A1c Glucose 1 Hr 50 gm Hemoglobin A1c % AST ALT Triglycerides Cholesterol LDL Cholesterol, Calc HDL Cholesterol TSH Free T4 Prolactin 03/24/20 12/16/21 07/12/23 11:54 00:32 11:03 Creatinine Estimated GFR Fasting Glucose Glucose 1 Hour Glucose 2 Hour Glucose 3 Hour 135 Hemoglobin A1c Glucose 1 Hr 50 gm Hemoglobin A1c % AST 15 ALT 21 Triglycerides Cholesterol LDL Cholesterol, Calc HDL Cholesterol TSH 6.02 H Free T4 0.84 Prolactin 09/12/23 05/21/24 06/14/24 12:05 13:09 09:50 Creatinine 0.69 Estimated GFR > 60 Fasting Glucose Glucose 1 Hour Glucose 2 Hour Glucose 3 Hour Hemoglobin A1c Glucose 1 Hr 50 gm Hemoglobin A1c % 5.6 AST ALT Triglycerides 107 Cholesterol 173 LDL Cholesterol, Calc 111 H HDL Cholesterol 41 TSH 2.77 1.92 Free T4 Prolactin 7.1 Laboratory Tests 06/22/18 03/18/20 03/23/20 10:38 12:57 11:01 Sodium Potassium Creatinine Estimated GFR Fasting Glucose Glucose 1 Hour Glucose 2 Hour Glucose 3 Hour Hemoglobin A1c 5.3 Glucose 1 Hr 50 gm 162 H 155 H Hemoglobin A1c % Insulin Level AST ALT Triglycerides 172 Cholesterol 232 LDL Cholesterol, Calc 155 HDL Cholesterol 43 Vitamin A TSH Free T4 Prolactin Beta HCG, Quant 03/24/20 03/24/20 03/24/20 08:50 09:55 10:55 Sodium Potassium Creatinine Estimated GFR Fasting Glucose 92 Glucose 1 Hour 146 Glucose 2 Hour 137 Glucose 3 Hour Hemoglobin A1c Glucose 1 Hr 50 gm Hemoglobin A1c % Insulin Level AST ALT Triglycerides Cholesterol LDL Cholesterol, Calc HDL Cholesterol Vitamin A TSH Free T4 Prolactin Beta HCG, Quant 03/24/20 12/16/21 07/12/23 11:54 00:32 11:03 Sodium Potassium Creatinine Estimated GFR Fasting Glucose Glucose 1 Hour Glucose 2 Hour Glucose 3 Hour 135 Hemoglobin A1c Glucose 1 Hr 50 gm Hemoglobin A1c % Insulin Level AST 15 ALT 21 Triglycerides Cholesterol LDL Cholesterol, Calc HDL Cholesterol Vitamin A TSH 6.02 H Free T4 0.84 Prolactin Beta HCG, Quant 09/12/23 05/21/24 09/06/24 12:05 13:09 10:10 Sodium Potassium Creatinine Estimated GFR Fasting Glucose Glucose 1 Hour Glucose 2 Hour Glucose 3 Hour Hemoglobin A1c Glucose 1 Hr 50 gm Hemoglobin A1c % Insulin Level AST ALT Triglycerides Cholesterol LDL Cholesterol, Calc HDL Cholesterol Vitamin A TSH 2.77 1.92 Free T4 Prolactin 7.1 Beta HCG, Quant < 2 09/30/24 09:07 Sodium 138 Potassium 3.8 Creatinine 0.70 Estimated GFR > 60 Fasting Glucose Glucose 1 Hour Glucose 2 Hour Glucose 3 Hour Hemoglobin A1c Glucose 1 Hr 50 gm Hemoglobin A1c % 5.9 Insulin Level 18 AST ALT Triglycerides 150 H Cholesterol LDL Cholesterol, Calc 101 H HDL Cholesterol 39 L Vitamin A 36 L TSH 1.27 Free T4 Prolactin Beta HCG, Quant PFSH Medical History Non-insulin dependent type 2 diabetes mellitus Sleep apnea treated with continuous positive airway pressure (CPAP) Sleep apnea Hypothyroidism Elevated cholesterol Obesity (BMI 30-39.9) Supraumbilical hernia HTN (hypertension) Anemia History of hypothyroidism Hx of sleep apnea Diastasis recti Depression Asthma GERD (gastroesophageal reflux disease) Surgical History Hx of section History of umbilical hernia repair (05/13/19) Family History Father No problems noted. Mother HTN (hypertension) Asthma Hyperthyroidism Diabetes Paternal Aunt Breast cancer Son Asthma Son Asthma ADHD Son Asthma Daughter Autism Social History Household Members: Spouse and Children Housing: Apartment Are you a primary housekeeper child care to a significant other at home: No Do you presently have visiting nurse or other home services: No Alcohol intake: former Patient Tobacco Use Status: Never used Tobacco Sexual orientation: Straight/Heterosexual Gender identity: Female Female Reproductive History Menstrual Age of Menarche: 13 Physical Exam Vital Signs: Last Vital Signs Pulse 76 10/16/24 13:07 BP 110/68 10/16/24 13:07 Pulse Ox 96 10/16/24 13:07 Oxygen Delivery Method Room Air 10/16/24 13:07 BMI result Body Mass Index 37.0 Assessment & Plan Assessment & Plan (1) Obesity (BMI 30-39.9): Code(s): E66.9 - Obesity, unspecified Category: Medical Plan: 39-year-old patient with past medical history significant for hypertension, hyperlipidemia, gestational diabetes mellitus not currently , prediabetes, KELL on CPAP who is here today for follow up of obesity. Referral was made for polycystic ovarian syndrome, however patient has regular periods, no signs of hyperandrogenism and recent pelvic ultrasound from October 2023 showed no polycystic ovaries. She follows with OBGYN regularly, and we are now helping management of obesity. Her highest BMI in September 2024 was 39 kg per m2 with a weight of 192 lb. Now she has lost 9 lb in the past 4 weeks, with weight down to 183 lb today on 10/16/2024 with current BMI at 37 kg per m2. She is trying to build up stamina for walking. Again today advised to start building up to 10,000 steps per day, and incorporating walking into her 30 minutes of exercise daily. Mostly eating healthy with limited outside food, incorporating more greens and less carbohydrates and fats, and now she is also doing calorie counting to maintain a calorie deficit. She has had 4 pregnancies, not desiring any future pregnancies. She is on metformin 500 mg b.i.d. for prediabetes, A1c of 5.9% from September 2024. She also has hyperlipidemia, currently on pravastatin. She also has KELL. Uses CPAP. Given multiple comorbidities and that her BMI is greater than 35 kg m2, we referred her for bariatric surgery. She is being planned for a sleeve gastrectomy with a goal weight down to 168 lb prior to surgery. Her insurance denied both Zepbound and Wegovy, she would be a good candidate for GLP 1 agonist especially given she has multiple comorbidities including prediabetes. Weight management clinic has already initiated a 2nd PA for Zepbound. I have asked patient to let me know if this gets approved. For now we will continue phentermine 15 mg daily which was initiated on 09/13/2024 with goal of 5% weight loss at the 3 month bijal which would be 12/12/2024. Focused again today on extensive lifestyle modification today with weight loss counseling done. At this time patient is not having any side effects from phentermine. Plan: -continue phentermine 15 mg daily -continue metformin 500 mg b.i.d. -lifestyle modification as advised during the visit regarding calorie deficit and regular aerobic exercise of 30 minutes 5 days a week -we will need monthly test on medication, patient advised about teratogenicity. test ordered for today -follow up in 4 weeks (2) Prediabetes: Comment: and hx gdm, per pt description,- seeing pcc w plan for wt loss, etc Code(s): R73.03 - Prediabetes Category: Medical Plan: See above Plan I spent 30 minutes in reviewing the record, seeing the patient and documenting in the medical record. Orders: Orders HCG Quantitative Today E66.9 - Obesity, unspecified Medications: Refilled phentermine must administer 2 hours after breakfast 15 mg PO DAILY 30 caps 2RF Patient Instructions: Do test today Follow up in 4 weeks Continue phentermine 15 mg daily Continue metformin 500 BID If you have any chest pain, chest discomfort , chest pressure go to [facility] room Hazte la prueba de embarazo hoy Seguimiento en 4 semanas. Continuar con fentermina 15 mg al d?a. Continuar con metformina 500 BID Si tiene dolor en el pecho, malestar en el pecho o presi?n en el pecho, vaya a la arielle de emergencias. Coding Level of Care Code Est Pt Level 4 (76814) Diagnoses Obesity (BMI 30-39.9) E66.9 Prediabetes R73.03 Time Spent (min) 30
[2024-10-16 13:07] VITALS: BP 110/68; PULSE 76; O2SAT 96; BMI 37.0
--- OUTSIDE RECORDS SUMMARY | 2024-10-16 14:29 | XMS_ITS | Encounter Summary ---
Author Organization [employer] Address [address] [place] [address] Care Team Providers Care Vinyl Top Installer Name Role Phone Sarah Bradley MD Primary Care Provide r Encounter Details Date Type Department Care Team ([facility] Contact Info) Description 03/22/2023 Orders Only [facility] MEDICINE [address] [place] [address] Provider, MD Yessi Social History Tobacco Use [...] Upcoming Encounters Date Type Department Care Team ([facility] Contact Info) Description 01/29/2025 10:30 AM EDT Office Visit [facility] OPTOMETRY [address] [place], [place] [phone] Katy Del Cid, OD [address] [place] [address] documented as of this encounter Procedures Procedure [...] documented as of this encounter Care Teams Vinyl Top Installer Relationship Specialty Start Date End Date Sarah Bradley MD [address] [place] [id number] PCP - General Family Medicine 06/22/18 Aisha Savage Sales Engagement ExecutiveBuoy Tender 04/11/24 documented as of this encounter
--- OUTSIDE RECORDS SUMMARY | 2024-10-16 14:29 | XMS_ITS | Encounter Summary ---
Author Organization [employer] Address [address] [place] [address] Care Team Providers Care Security Program Manager Name Role Phone Sarah Bradley MD Primary Care Provide r Encounter Details Date Type Department Care Team (Late st Contact Info) Description 08/05/2024 Orders Only [facility] External Provider, [facility] Social History Tobacco Use Types Packs/Day [...] EDT Office Visit [facility] OPTOMETRY [address] [place] [address] Nehemias, Katy, OD [address] [place] [address] documented as of this encounter Procedures Procedure Name Priority Date/Time Associated Diagnosis Comments CT ABDOMEN PELVIS WO CONTRAST Routine 08/05/2024 8:02 AM EST documented in this encounter Results * CT Abdomen Pelvis w/o Contrast (08/05/2024 8:02 AM EST) Anatomical Region Laterality Modality Body, Pelvis, Abdomen Computed T omography 08/05/2024 8:02 AM EST Narrative 09/16/2024 1:12 PM EST ? [facility] ?[address] ?[place] [address] ? CT Scan Report ? Signed ? Patient: Aguilar,Sarah Torres ?MR#: [id number] ?? [id number] ? : 1985 ?Acct:[id number] ? Age/Sex: 39 / F ?ADM Date: 08/05/24 ? Loc: HO.CT ? Attending Dr: Osbaldo Herron MD ? Ordering Physician: Osbaldo Herron MD ?? Date of Service: 08/05/24 ?? Procedure(s): CT abdomen pelvis wo IV con ?? Accession Number(s): [id number] ? cc: Sarah Bradley MD; Osbaldo Herron MD ? Report Number: ?? [id number]: Total DLP = ??870.00 mGy-cm ?? EXAMINATION: [...] ? DD/ 1 ? TD/TT: 08/05/24805 ? Kitchen Operator: ? Procedure Note Mervin, Almita - 09/16/[address] [place] [address] [address] Scan Report Signed Patient: Sarah Sheikh IMR#: [id number] : 1985Acct:[id number] Age/Sex: 39 / FADM Date: 08/05/24 Loc: HO.CT Attending Dr: Osbaldo Herron MD Ordering Physician: Osbaldo Herron MD Date of Service: 08/05/24 Procedure(s): CT abdomen pelvis wo IV con Accession Number(s): [id number] cc: Sarah Bradley MD; Osbaldo Herron MD Report Number: [id number]: Total DLP = 870.00 mGy-cm EXAMINATION: CT [...] Fleischner guidelines were followed. Electronically signed by: Syk Villalobos MD 09/16/2024 01:[address] [facility] Dictated By: Sky Stinson MD Signed By: <Electronically signed by Sky Chahal MDin OV> 09/16/24 1309 DD/ 0802 TD/TT: 08/05/24 0806 Kitchen Operator: [facility] External Provider IMG CT PROCEDURES Edited Result - Final documented in this encounter Visit Diagnoses Not on filedocumented in this encounter Additional Health Concerns Assessment Noted Time PHQ-9 Depression Total Score: 0 02/19/20 1:15 PM EDT documented as of this encounter Care Teams Security Program Manager Relationship Specialty Start Date End Date Sarah Bradley MD [address] [place] [address] PCP - General Family Medicine 06/22/18 Aisha Savage Industrial ChemistOffice Employee 04/11/24 documented as of this encounter
--- OUTSIDE RECORDS SUMMARY | 2024-10-16 14:29 | XMS_ITS | Encounter Summary ---
Author Organization [employer] Address [address] [place] [address] Care Team Providers Care Travel Attendants Name Role Phone Sarah Bradley MD Primary Care Provide r Encounter Details Date Type Department Care Team ([facility] Contact Info) Description 01/27/2023 Abstract [facility] MEDICINE [address] [place] [address] Sarah Bradley MD [address] [place] [address] Social History Tobacco Use Types Packs/Day Years [...] Upcoming Encounters Date Type Department Care Team ([facility] Contact Info) Description 01/29/2025 10:30 AM EDT Office Visit [facility] OPTOMETRY [address] [place] [address] Katy Del Cid RAYO [address] [place] [address] documented as of this encounter Procedures Procedure [...] documented as of this encounter Care Teams Travel Attendants Relationship Specialty Start Date End Date Sarah Bradley MD [address] [place] [address] PCP - General Family Medicine 06/22/18 Aisha Savage Unleavened Dough MixerDistribution Sales Manager 04/11/24 documented as of this encounter
--- OUTSIDE RECORDS SUMMARY | 2024-10-16 14:29 | XMS_ITS | Encounter Summary ---
Author Organization [employer] Address [address] [place] [address] Care Team Providers Care Dispensing Lead Name Role Phone Sarah Bradley MD Primary Care Provide r Encounter Details Date Type Department Care Team ([facility] st Contact Info) Description 07/26/2024 Telephone [facility] MEDICINE [address] [place], [place] [phone] Sarah Bradley MD [address] [place], [place] [phone] Social History Tobacco Use Types Packs/Day Years [...] 10:30 AM EDT Office Visit [facility] OPTOMETRY [address] [place] [address] Nehemias, Katy, OD [address] [place] [address] documented as of this encounter Visit Diagnoses Not on filedocumented in this encounter Additional Health Concerns Assessment Noted Time PHQ-9 Depression Total Score: 0 02/19/20 24 1:15 PM EDT documented as of this encounter Care Teams Dispensing Lead Relationship Specialty Start Date End Date Sarah Bradley MD [address] [place], [place] [phone] PCP - General Family Medicine 06/22/18 Aisha Savage Hospital Unit ClerkOrder Packer 04/11/24 documented as of this encounter
--- OUTSIDE RECORDS SUMMARY | 2024-10-16 14:29 | XMS_ITS | Encounter Summary ---
Author Organization [employer] Address [address] [place] [address] Care Team Providers Care Astrochemist Name Role Phone Sarah Bradley MD Primary Care Provide r Encounter Details Date Type Department Care Team ([facility] Contact Info) Description 03/22/2023 Abstract [facility] MEDICINE [address] [place] [address] Sarah Bradley MD [address] [place] [address] Social History Tobacco Use Types Packs/Day Years [...] Upcoming Encounters Date Type Department Care Team ([facility] Contact Info) Description 01/29/2025 10:30 AM EDT Office Visit [facility] OPTOMETRY [address] [place], [place] [phone] Katy Del Cid, OD [address] [place], [place] [phone] documented as of this encounter Visit Diagnoses Not on filedocumented in this encounter Additional Health Concerns Assessment Noted Time PHQ-9 Depression Total Score: 0 01/18/20 23 10:22 AM EDT documented as of this encounter Care Teams Astrochemist Relationship Specialty Start Date End Date Sarah Bradley MD [address] [place], [place] [phone] PCP - General Family Medicine 06/22/18 Aisha Savage Loader DemolderCity Dispatch Supervisor 04/11/24 documented as of this encounter
--- OUTSIDE RECORDS SUMMARY | 2024-10-16 14:29 | XMS_ITS | Clinical Summary ---
Author Organization [employer] Address [address] [place] [address] Care Team Providers Care Automobile Body Customizer Name Role Phone Sarah Bradley MD Primary Care Provide r Allergies Active Allergy Reactions Criticality Noted Date Comments Latex 09/01/2022 Medications Alcohol Swabs ([facility] Prep) 70 % pads PLEASE USE DIRECTED FOR FOUR TIMES DAILY BLOOD GLUCOSE MONITORING IN 2 Active Aspirin Low Dose 81 MG EC tablet TAKE 2 TABLETS BY MOUTH EVERY DAY 2 Active Blood Glucose Monitoring Suppl (FreeStyle [place] Lite) w/Device kit TEST 4 TIMES A [...] (BMI) of 37.0 to 37.9 in adult (CMS/FORMERLY [facility]) Take 1 capsule (15 mg) by mouth [...] DEPARTMENT Provider, Generic External Data 08/12/2024 Refill [facility] [address] [place] [address] Sarah Bradley MD Acquired hypothyroidism; Impaired glucose tolerance test; Primary hypertension 08/05/2024 Orders Only [facility] External Provider, [facility] 07/26/2024 Telephone [facility] [address] [place] [address] Sarah Bradley MD from Last [...] Description 01/29/2025 10:30 AM EDT Office Visit [facility] [address] [place] [address] Nehemias, Katy, OD [address] [place] [address] Health Maintenance Due Date Last Done Comments [...] EST Narrative 09/30/2024 10:16 AM EST ? [facility] ?[address] ?[place] [address] ?XRay Report ? Signed ? Patient: Sarah Sheikh I ?MR#: [id number] ?? [id number] ? : 1985 ?Acct:[id number] ? Age/Sex: 39 / F ?ADM Date: 09/30/24 ? Loc: HO.XRAY ? Attending Dr: Parmjit Caraballo MD ? Ordering Physician: Parmjit Caraballo MD ?? Date of Service: 09/30/24 ?? Procedure(s): XR chest 2V ?? Accession Number(s): [id number] ? cc: Sarah Bradley MD; Parmjit Caraballo [...] DD/ 0909 ? TD/TT: 09/30/24 0919 ? Payroll Processor: YOHANA ? Procedure Note Donotabrahaminterpreter, Image - 09/30/[address] [address] XRay Report Signed Patient: Sarah Sheikh IMR#: [id number] : 1985Acct:[id number] Age/Sex: 39 / FADM Date: 09/30/24 Loc: HO.ABBYAY Attending Dr: Parmjit Caraballo MD Ordering Physician: Parmjit Caraballo MD Date of Service: 09/30/24 Procedure(s): XR chest 2V Accession Number(s): [id number] cc: Sarah Bradley MD; Parmjit Caraballo MD [...] OV> 09/30/24 1013 DD/ 0909 TD/TT: 09/30/24918 Payroll Processor: YOHANA [facility] External Provider IMG XR PROCEDURES Edited Result - Final * (ABNORMAL) Vitamin D, 25-Hydroxy, Total, Immunoassay (09/30/2024 9:07 AM EST) Vitamin D 25-OH Total 22.6(L) >30 ng/mL [facility] Comment:Health Based Referen ce Values*< 20 ng/mL Clwxlcntp19-30 ng/mL Insufficient> 30 ng/mL Sufficient*Red ODONNELL. N [...] ORDERAB LES Final Result Performing Organization Address [facility]/ZIP Co de Phone Number [facility] [address] [place] [phone] * Vitamin B12 (Cobalamin) and Folate Panel, Serum (09/30/2024 9:07 AM EST) Vitamin B12 508 200 - 900 pg/mL [facility] Comment:NORMAL 200-900 PG/ML INDETERMINATE 160-199 PG/ML DEFICIENT < 160 PG/ML Folate 13.1 > or = 4.0 ng/mL [facility] Comment:Reference Values:> o r = 4.0 ng/mL< 4.0 ng/mL suggests folate deficiency Methotrexate, aminopterin and folinic acid(leucovorin) are chemotherapeutic agents whose molecularstructures are similar to folate; therefore, the Architectfolate assay cannot be used for patients using these drugs. 09/30/2024 9:07 AM EST 09/30/2024 9:07 AM EST us Generic External Data Provider LAB BLOOD ORDERAB LES Final Result Performing Organization Address City/[facility]/ZIP Co de Phone Number [facility] [address] [place] [phone] [phone] * TSH with Reflex to Free T4 (09/30/2024 9:07 AM EST) Pathologist [facility] TSH reflex Free T4 1.27 0.32 - 4.0 uIU/mL [facility] 09/30/2024 9:07 AM EST 09/30/2024 9:07 AM EST us Generic External Data Provider LAB BLOOD ORDERAB LES Final Result [facility] [address] [place] [phone] * (ABNORMAL) CBC auto differential (09/30/2024 9:07 AM EST) [facility] White Blood Count 6.8 4.8 - 10.8 X10*3/uL [facility] Red Blood Count 4.57 4.20 - 5.50 X10*6/uL [facility] Hemoglobin 11.5(L) 12.0 - 16.0 g/dl [facility] Hematocrit 37.5 37.0 - 47.0 % [facility] Mean Corpuscular Volume 82.1 80.0 - 98.0 fL [facility] Mean Corpuscular Hemoglobin 25.2(L) 27.0 - 33.0 pg [facility] Mean Corpuscular HGB Conc 30.7(L) 31.0 - 35.0 g/dl [facility] Red Cell Distribution Width 15.2 11.0 - 16.0 % [facility] Platelet Count 286 160 - 400 X10*3/uL [facility] Mean Platelet Volume 11.0 9.4 - 12.3 fL [facility] Neutrophils Percent Auto 70.2 45 - 73 % [facility] Imm Gran Pct Auto 0.4 0.0 - 0.4 % [facility] Lymphocytes Percent Auto 20.6 20 - 40 % [facility] Monocytes Percent Auto 6.1 2 - 11 % [facility] Eosinophils Percent Auto 2.3 0 - 4 % [facility] Basophils Percent Auto 0.4 0 - 2 % [facility] NRBC Pct Auto 0.0 0.0 - 0.2 /100WBC [facility] Neutrophils Absolute Auto 4.8 2.0 - 8.3 x10*3/uL [facility] Imm Gran Abs Auto 0.03 0.00 - 0.03 X10*3/uL [facility] Lymphocytes Absolute Auto 1.4 1.2 - 4.9 X10*3/uL [facility] Monocytes Absolute Auto 0.4 0.1 - 1.2 X10*3/uL [facility] Eosinophils Absolute Auto 0.2 0.0 - 0.4 X10*3/uL [facility] Basophils Absolute Auto 0.0 0.0 - 0.2 X10*3/uL [facility] NRBC Abs Auto 0.000 0.0 - 0.012 X10*3/uL [facility] 09/30/2024 9:07 AM EST 09/30/2024 9:07 AM EST us Generic External Data Provider LAB BLOOD ORDERAB LES Final Result Performing Organization Address [facility] Co de Phone Number [facility] [address] [place] [phone] * (ABNORMAL) Iron And Total Iron Binding Capacity (09/30/2024 9:07 AM EST) Iron 33 30 - 160 mcg/dL [facility] Total Iron Binding Capacity 396 228 - 428 mcg/dL [facility] Percent Iron Saturation 8(L) 15 - 50 % [facility] Unsaturated Iron Binding 363 ug/dL [facility] 09/30/2024 9:07 AM EST 09/30/2024 9:07 AM EST us Generic External Data Provider LAB BLOOD ORDERAB LES Final Result [facility] [address] [place] [phone] * Insulin (09/30/2024 9:07 AM EST) Insulin 18 2 - 29 uU/mL [facility] Comment:This test was perfor med [...] ORDERAB LES Final Result Performing Organization Address [facility] Co [facility] Number [facility] [address] [place] [phone] * Zinc (09/30/2024 9:07 AM EST) Zinc 71 60 - 130 mcg/dL [facility] Comment:This test was develo ped and its analytical performancecharacteristics have been determined by [employer] [place], [place]. It hasnot been cleared or approved by the U.S. Food and DrugAdministration. This assay has been validated pursuantto the CLIA regulations and is used for clinicalpurposes.THIS TEST WAS PERFORMED AT:[employer] [place] [address]KSWPPXIMEERA RAYMOND MD,PHD 09/30/2024 9:07 AM EST 09/30/2024 9:07 AM EST us Generic External Data Provider LAB BLOOD ORDERAB LES Final Result Performing Organization Address [facility] Co de Phone Number [facility] [address] [place] [phone] * (ABNORMAL) Vitamin A (09/30/2024 9:07 AM EST) Vitamin A (Retinol) 36(A) 38 - 98 mcg/dL [facility] Comment:Vitamin supplementat ion within 24 hours prior toblood draw may affect the accuracy of the results.This test was developed and its analytical performancecharacteristics have been determined by [employer] [place], [place]. It hasnot been cleared or approved by the U.S. Food and DrugAdministration. This assay has been validated pursuantto the CLIA regulations and is used for clinicalpurposes.THIS TEST WAS PERFORMED AT:[employer] [place] [address]WXFBRGGMEERA RAYMOND MD,PHD 09/30/2024 9:07 AM EST 09/30/2024 9:07 AM EST Generic External Data Provider LAB BLOOD ORDERAB LES Final Result Performing Organization Address [facility]/ZIP Co de Phone Number [facility] [address] [place] [phone] * C-reactive Protein (09/30/2024 9:07 AM EST) [facility] C Reactive Protein 0.47 < or = 0.50 mg/dL [facility] 09/30/2024 9:07 AM EST 09/30/2024 9:07 AM EST Generic External Data Provider LAB BLOOD ORDERAB LES Final Result Performing Organization Address [facility]/ZIP Co de Phone Number [facility] [address] [place] [phone] * Vitamin B1 (09/30/2024 9:07 AM EST) Vitamin B1 12 8 - 30 nmol/L [facility] Comment:Vitamin supplementat ion within 24 hours prior toblood draw may affect the accuracy of the results.This test was developed and its analytical performancecharacteristics have been determined by [employer] [place], [place]. It hasnot been cleared or approved by the U.S. Food and DrugAdministration. This assay has been validated pursuantto the CLIA regulations and is used for clinicalpurposes.THIS TEST WAS PERFORMED AT:[employer]/[facility] [place] [address]GHALILDMEERA RAYMOND MD,PHD 09/30/2024 9:07 AM EST 09/30/2024 9:07 AM EST us Generic External Data Provider LAB BLOOD ORDERAB LES Final Result Performing Organization Address [facility] Co de Phone Number [facility] [address] [place] [phone] * Hemoglobin A1c (09/30/2024 9:07 AM EST) Hemoglobin A1c 5.9 <6.0 % [facility] Comment:Hemoglobin A1C Refer ence Range Adults: 4.8 - 6.0 % Non diabetic: < 6.0 % Goal: < 7.0 %Additional Action Suggested: > 8.0 %Note: Hemoglobin A1c results are invalid for patients with abnormal amounts of HbF. Blood transfusions may impact the HbA1c concentration in the patient sample. Estimated Average Glucose 123 mg/dL [facility] Comment:eAG = Estimated ave rage glucose which is %A1C expressed asaverage glucose, using the formula of the V8G-TpodumkBndwvji Glucose study (ADAG), Diabetes Care, Vol.31,#8,Apr. 2007 09/30/2024 9:07 AM EST 09/30/2024 9:07 AM EST Generic External Data Provider LAB BLOOD ORDERAB LES Final Result Performing Organization Address [facility] Co de Phone Number [facility] [address] [place] [phone] * Ferritin (09/30/2024 9:07 AM EST) Ferritin 10 10 - 122 ng/mL [facility] 09/30/2024 9:07 AM EST 09/30/2024 9:07 AM EST Generic External Data Provider LAB BLOOD ORDERAB LES Final Result Performing Organization Address City/[facility]/ZIP Co de Phone Number [facility] [address] [place] [phone] * (ABNORMAL) Lipid Panel, Standard (09/30/2024 9:07 AM EST) Triglycerides 150(H) <150 mg/dL [facility] Comment:Desirable Triglyceri de: less than 150 mg/dLBorderline High Triglyceride 150-199 mg/dLHigh Triglyceride: 200-499 mg/dLVery High Triglyceride: greater than or equal to 5OO mg/dL Cholesterol 170 <200 mg/dL [facility] Comment:Desirable Cholestero l: less than 200 mg/dLBorderline High Cholesterol: 200-239 mg/dLHigh Cholesterol: greater than 239 mg/dL LDL Cholesterol Calculated 101(H) <100 mg/dL [facility] Comment:Desirable LDL: less than 100 mg/dLNear Optimal/Above Optimal LDL: 110- 129 mg/dLBorderline High LDL: 130-159 mg/dLHigh LDL: 160-189 mg/dLVery High LDL: greater than or equal to 190 mg/dL HDL Cholesterol 39(L) >40 mg/dL [facility] Comment:Desirable HDL: great er than 40 mg/dL Note: This HDL assay may give artificially low results in patients with liver disease. 09/30/2024 9:07 AM EST 09/30/2024 9:07 AM EST us Generic External Data Provider LAB BLOOD ORDERAB LES Final Result Performing Organization Address City/[facility]/ZIP Co de Phone Number [facility] [address] [place] [phone] * (ABNORMAL) Comprehensive Metabolic Panel (09/30/2024 9:07 AM EST) Sodium 138 135 - 145 mmol/L [facility] Potassium 3.8 3.3 - 5.1 mmol/L [facility] Chloride 108 96 - 108 mmol/L [facility] Carbon Dioxide 26 22 - 29 mmol/L [facility] Anion Gap 8(L) 12 - 20 [facility] Urea Nitrogen (BUN) 27(H) 9 - 16 mg/dL [facility] Creatinine, Serum 0.70 0.5 - 1.4 mg/dL [facility] Estimated Glomerular Filt Rate >60 [facility] Comment:Chronic Kidney Disea se: Estimated GFR < 60 mL/min/1.33i4Ntypwq Kidney Disease: Estimated GFR < 15 mL/min/1.73m2 Glucose 108 60 - 115 mg/dL [facility] Calcium 9.1 8.4 - 10.2 mg/dL [facility] Bilirubin, Total 0.3 0.0 - 1.0 mg/dL [facility] Aspartate Amino Transferase 22 5 - 31 U/L [facility] Alanine Aminotransferase 17 0 - 31 U/L [facility] Total Protein 8.4(H) 6.5 - 8.0 g/dL [facility] Albumin Level 4.4 3.5 - 5.0 g/dL [facility] Alkaline Phosphatase 74 39 - 117 U/L [facility] 09/30/2024 9:07 AM EST 09/30/2024 9:07 AM EST us Generic External Data Provider LAB BLOOD ORDERAB LES Final Result [facility] [address] [place] [phone] * HCG, Qualitative, Urine (08/13/2024 9:10 AM EST) Urine NEGATIVE NEGATIVE [facility] Comment:This test was develo ped to detect early . Falsenegative results may occur after the 5th - 7th week ofpregnancy when using this test method. If clinicallyindicated, consider a serum hCG. 08/13/2024 9:10 AM EST 08/13/2024 9:17 AM EST us Generic External Data Provider LAB URINE ORDERAB LES Final Result Performing Organization Address City/State/[facility] Co de Phone Number [facility] [address] [place] [phone] * CT Abdomen Pelvis w/o Contrast (08/05/2024 8:02 AM EST) Anatomical Region Laterality Modality Body, Pelvis, Abdomen Computed T omography 08/05/2024 8:02 AM EST Narrative 09/16/2024 1:12 PM EST ? [facility] ?[address] ?[place] [address] ? CT Scan Report ? Signed ? Patient: Aguilar,Sarah I ?MR#: [id number] ?? [id number] ? : 1985 ?Acct:[id number] ? Age/Sex: 39 / F ?ADM Date: 08/05/24 ? Loc: HO.CT ? Attending Dr: Osbaldo Herron MD ? Ordering Physician: Osbaldo Herron MD ?? Date of Service: 08/05/24 ?? Procedure(s): CT abdomen pelvis wo IV con ?? Accession Number(s): [id number] ? cc: Sarah Bradley MD; Osbaldo Herron MD ? Report Number: ?? [id number]: Total DLP = ??870.00 mGy-cm ?? EXAMINATION: [...] DD/ 1 ? TD/TT: 08/05/24 0806 ? Payroll Processor: ? Procedure Note Donotuseinterpreter, Image - 09/16/[address] [address] [address] Scan Report Signed Patient: Sarah Sheikh IMR#: [id number] : 1985Acct:[id number] Age/Sex: 39 / FADM Date: 08/05/24 Loc: HO.CT Attending Dr: Osbaldo Herron MD Ordering Physician: Osbaldo Herron MD Date of Service: 08/05/24 Procedure(s): CT abdomen pelvis wo IV con Accession Number(s): [id number] cc: Sarah Bradley MD; Osbaldo Herron MD Report Number: [id number]: Total DLP = 870.00 mGy-cm EXAMINATION: CT [...] by: Sky Villalobos MD 09/16/2024 01:09 PM [facility] Dictated By: Sky Stinson MD Signed By: <Electronically signed by Sky Chahal MDin OV> 09/16/24 1309 DD/ 0802 TD/TT: 08/05/24 0806 Payroll Processor: [facility] External Provider IMG CT PROCEDURES Edited Result - Final * Hm Pap Smear (02/21/2023) Historical Provider HEALTH MAINTENANCE Final Result * HPV E6/E7 RFLX CLAIRE 16 18/45 (12/08/2021 10:43 AM EDT) HPV mRNA E6/E7 rflx Not Detected Not Detected [facility] Comment: Methodology: Options Advisor-Mediated Amplification This assay detects E6/E7 viral messenger RNA (mRNA) from 14 high-risk HPV types (16,18,31,33,35,39,45,51,52,56,58,59,66,68). The analytical performance characteristics of this assay have been determined by [employer]. The modifications have not been cleared or approved by the FDA. This assay has been validated pursuant to the CLIA regulations and is used for clinical purposes. For additional information, please refer to http://education.Updox/faq/SOE885w2 (This link if provided for information/ educational purposes only.) THIS TEST WAS PERFORMED AT: [facility] [address] [place] [address] [address] [facility] [place], [place] ??[phone] KLAUS BRASHER MD 12/08/2021 10:4 3 AM EDT Laine Zamora HISTORICAL/NON ORDERABLE LABS Fi nal Result Performing Organization Address [facility] Phone Number [facility] [place] [address], * HEPATITIS C ANTIBODY (11/16/2019 10:03 AM EDT) Pathologist [facility] HEPATITIS C ANTIBODY NONREACTIVE NONREACTIVE [facility] Comment: Antibodies to HCV not detected; does not exclude early acute HCV infection. 11/16/2019 10:0 3 AM EDT Laine Zamora HISTORICAL/NON ORDERABLE LABS Fi nal Result Performing Organization Address [facility] [place] [address], * HIV AB/AG (11/16/2019 10:03 AM EDT) [...] detection of this assay. ?? The [employer] HIV Ag/Ab Combo assay result and supplemental assay results should be interpreted in conjunction with the patient's clinical presentation, history and other laboratory results. ??If the results are inconsistent with clinical evidence, additional testing is suggested to confirm the result. 11/16/2019 10:0 3 AM EDT us Laine Zamora HISTORICAL/NON ORDERABLE LABS Fi nal Result [facility] [address] from Last 3 Months or Most Recently Relevant to Health Maintenance Insurance * Guarantor: Sarah Sheikh I Account Type Relation to Patient Date of Phone Billing Address Personal/Family Self [address] [place] [address] [facility] C3 DENTAL-[facility] MEDICAID STAND ADULT * Guarantor: Sarah Sheikh I Account Type Relation to Patient Date of Phone Billing Address Personal/Family Self [address] [place] [address] Care Teams Automobile Body Customizer Relationship Specialty Start Date End Date Sarah Bradley MD [address] [place] [address] PCP - General Family Medicine 06/22/18 Aisha Savage [employer] RepairerRecycling Manager 04/11/24
--- OUTSIDE RECORDS SUMMARY | 2024-10-16 14:29 | XMS_ITS | Encounter Summary ---
Author Organization [employer] Address [address] [place] [address] Care Team Providers Care Can Inspector Name Role Phone Sarah Bradley MD Primary Care Provide r Encounter Details Date Type Department Care Team (Late Contact Info) Description 06/07/2023 Abstract [facility] MEDICINE [address] [place] [address] Sarah Bradley MD [address] [place], [place] [phone] Social History Tobacco Use Types Packs/Day Years [...] 10:30 AM EDT Office Visit [facility] OPTOMETRY [address] [place], [place] [phone] Katy Del Cid, OD [address] [place], [place] [phone] documented as of this encounter Procedures Procedure [...] documented as of this encounter Care Teams Can Inspector Relationship Specialty Start Date End Date Sarah Bradley MD [address] [place] [address] PCP - General Family Medicine 06/22/18 Aisha Savage Physical Therapist Clinic DirectorAdjunct Instructor In Economics 04/11/24 documented as of this encounter
--- OUTSIDE RECORDS SUMMARY | 2024-10-16 14:29 | XMS_ITS | Encounter Summary ---
Author Organization [employer] Address [address] [place] [address] Care Team Providers Care Plant Taxonomist Name Role Phone Sarah Bradley MD Primary Care Provide r Reason for Visit * Reason Onset Date Comments PT1 03/22/2024 Encounter Details Date Type Department Care Team ([facility] Contact Info) Description 03/22/2024 Telephone [facility]IC[facility] [address] [place], [place] [phone] Sarah Bradley MD [address] [place] [address] PT1 Social History Tobacco Use Types Packs/Day [...] Y/N: Yes Provider name or facility name: [facility] Facility Address: [address] [place] [address] Escort needed: Y/N: No Do you have a wheelchair: Y/N: No If yes- Manual or electric: n/a Visits; all future visits documented in this encounter Plan of Treatment Upcoming Encounters Date Type Department Care Team (Late st Contact Info) Description 01/29/2025 10:30 AM EDT Office Visit [facility] OPTOMETRY [address] [place] [address] Katy Del Cid, OD [address] [place] [address] documented as of this encounter Visit Diagnoses Not on filedocumented in this encounter Additional Health Concerns Assessment Noted Time PHQ-9 Depression Total Score: 0 02/19/20 24 1:15 PM EDT documented as of this encounter Care Teams Plant Taxonomist Relationship Specialty Start Date End Date Sarah Bradley MD [address] [place] [phone] PCP - General Family Medicine 06/22/18 Aisha Savage User Experience ManagerBack Up Scan Coordinator 04/11/24 documented as of this encounter
--- OUTSIDE RECORDS SUMMARY | 2024-10-16 14:29 | XMS_ITS | Encounter Summary ---
Author Organization [employer] Address [address] [facility] [address]t [place] [address] Care Team Providers Care Sky Line Yarder Name Role Phone Sarah Bradley MD Primary [...] Description 01/29/2025 10:30 AM EDT Office Visit [facility] OPT[facility]ETRY [address] [place], [place] [phone] Nehemias, Katy, OD [address] [place] [address] documented as of this encounter Procedures Procedure [...] EST Narrative 09/30/2024 10:16 AM EST ? [facility] ?[address] ?[place] [address] ?XRay Report ? Signed ? Patient: Sarah Sheikh Brian ?MR#: [id number] ?? [id number] ? : 1985 ?Acct:[id number] ? Age/Sex: 39 / F ?ADM Date: 09/30/24 ? Loc: HO.XRAY ? Attending Dr: Parmjit Caraballo MD ? Ordering Physician: Parmjit Caraballo MD ?? Date of Service: 09/30/24 ?? Procedure(s): XR chest 2V ?? Accession Number(s): [id number] ? cc: Sarah Bradley MD; Parmjit Caraballo [...] DD/ 0909 ? TD/TT: 09/30/24 0919 ? Non Clinical Advisor: YOHANA ? Procedure Note Donotuseinterpreter, Image - 09/30/[address] [address] XRay Report Signed Patient: Sarah Sheikh IMR#: [id number] : 1985Acct:[id number] Age/Sex: 39 / FADM Date: 09/30/24 Loc: HO.XRAY Attending Dr: Parmjit Caraballo MD Ordering Physician: Parmjit Caraballo MD Date of Service: 09/30/24 Procedure(s): XR chest 2V Accession Number(s): [id number] cc: Sarah Bradley MD; Parmjit Caraballo MD [...] OV> 09/30/24 1013 DD/ 0909 TD/TT: 09/30/24918 Non Clinical Advisor: [facility] External Provider IMG XR PROCEDURES Edited Result - Final * Vitamin B1 (09/30/2024 9:07 AM EST) Vitamin B1 12 8 - 30 nmol/L [facility] Comment:Vitamin supplementat ion within 24 hours prior toblood draw may affect the accuracy of the results.This test was developed and its analytical performancecharacteristics have been determined by [facility] [place], [place]. It hasnot been cleared or approved by the U.S. Food and DrugAdministration. This assay has been validated pursuantto the CLIA regulations and is used for clinicalpurposes.THIS TEST WAS PERFORMED AT:[employer] [id number] [place] [id number] RAYMOND MD,PHD 09/30/2024 9:07 AM EST 09/30/2024 9:07 AM EST Generic External Data Provider LAB BLOOD ORDERAB LES Final Result Performing Organization Address [facility] de Phone Number [facility] [address] [place] [phone] * (ABNORMAL) Vitamin A (09/30/2024 9:07 AM EST) Vitamin A (Retinol) 36(A) 38 - 98 mcg/dL [facility] Comment:Vitamin supplementat ion within 24 hours prior toblood draw may affect the accuracy of the results.This test was developed and its analytical performancecharacteristics have been determined by [facility] [place], [place]. It hasnot been cleared or approved by the U.S. Food and DrugAdministration. This assay has been validated pursuantto the CLIA regulations and is used for clinicalpurposes.THIS TEST WAS PERFORMED AT:[facility] [id number] [place] [id number] RAYMOND MD,PHD 09/30/2024 9:07 AM EST 09/30/2024 9:07 AM EST Generic External Data Provider LAB BLOOD ORDERAB LES Final Result Performing Organization Address [facility] Co de Phone Number [facility] [address] [place] [phone] * Zinc (09/30/2024 9:07 AM EST) Zinc 71 60 - 130 mcg/dL [facility] Comment:This test was develo ped and its analytical performancecharacteristics have been determined by [facility] [place], [place]. It hasnot been cleared or approved by the U.S. Food and DrugAdministration. This assay has been validated pursuantto the CLIA regulations and is used for clinicalpurposes.THIS TEST WAS PERFORMED AT:[facility] [place] [id number] RAYMOND MD,PHD 09/30/2024 9:07 AM EST 09/30/2024 9:07 AM EST Generic External Data Provider LAB BLOOD ORDERAB LES Final Result Performing Organization Address [facility] Co de Phone Number [facility] [address] [place] [address] [phone] * Insulin (09/30/2024 9:07 AM EST) Pathologist [facility] Insulin 18 2 - 29 uU/mL [facility] Comment:This test was perfor med [...] LES Final Result Performing Organization Address [facility] Co de Phone Number [facility] [address] [place] [phone] * TSH with Reflex to Free T4 (09/30/2024 9:07 AM EST) Pathologist [facility] TSH reflex Free T4 1.27 0.32 - 4.0 uIU/mL [facility] 09/30/2024 9:07 AM EST 09/30/2024 9:07 AM EST Generic External Data Provider LAB BLOOD ORDERAB LES Final Result [facility] [address] [place] [phone] * (ABNORMAL) Vitamin D, 25-Hydroxy, Total, Immunoassay (09/30/2024 9:07 AM EST) Vitamin D 25-OH Total 22.6(L) >30 ng/mL [facility] Comment:Health Based Referen ce Values*< 20 ng/mL Hsammmfkw24-43 ng/mL Insufficient> 30 ng/mL Sufficient*Red ODONNELL. N [...] Provider LAB BLOOD ORDERAB LES Final Result [facility] [address] [place] [phone] [phone] * Ferritin (09/30/2024 9:07 AM EST) Ferritin 10 10 - 122 ng/mL [facility] 09/30/2024 9:07 AM EST 09/30/2024 9:07 AM EST Generic External Data Provider LAB BLOOD ORDERAB LES Final Result Performing Organization Address City/[facility]/ZIP Co de Phone Number [facility] [address] [place] [phone] * Vitamin B12 (Cobalamin) and Folate Panel, Serum (09/30/2024 9:07 AM EST) Vitamin B12 508 200 - 900 pg/mL [facility] Comment:NORMAL 200-900 PG/ML INDETERMINATE 160-199 PG/ML DEFICIENT < 160 PG/ML Folate 13.1 > or = 4.0 ng/mL [facility] Comment:Reference Values:> o r = 4.0 ng/mL< 4.0 ng/mL suggests folate deficiency Methotrexate, aminopterin and folinic acid(leucovorin) are chemotherapeutic agents whose molecularstructures are similar to folate; therefore, the Architectfolate assay cannot be used for patients using these drugs. 09/30/2024 9:07 AM EST 09/30/2024 9:07 AM EST [employer] External Data Provider LAB BLOOD ORDERAB LES Final Result Performing Organization Address [facility] Co de Phone Number [facility] [address] [place] [phone] * (ABNORMAL) Lipid Panel, Standard (09/30/2024 9:07 AM EST) Triglycerides 150(H) <150 mg/dL [facility] Comment:Desirable Triglyceri de: less than 150 mg/dLBorderline High Triglyceride 150-199 mg/dLHigh Triglyceride: 200-499 mg/dLVery High Triglyceride: greater than or equal to 5OO mg/dL Cholesterol 170 <200 mg/dL [facility] Comment:Desirable Cholestero l: less than 200 mg/dLBorderline High Cholesterol: 200-239 mg/dLHigh Cholesterol: greater than 239 mg/dL LDL Cholesterol Calculated 101(H) <100 mg/dL [facility] Comment:Desirable LDL: less than 100 mg/dLNear Optimal/Above Optimal LDL: 110- 129 mg/dLBorderline High LDL: 130-159 mg/dLHigh LDL: 160-189 mg/dLVery High LDL: greater than or equal to 190 mg/dL HDL Cholesterol 39(L) >40 mg/dL [facility] Comment:Desirable HDL: great er than 40 mg/dL Note: This HDL assay may give artificially low results in patients with liver disease. 09/30/2024 9:07 AM EST 09/30/2024 9:07 AM EST us Generic External Data Provider LAB BLOOD ORDERAB LES Final Result Performing Organization Address [facility] Co de Phone Number [facility] [address] [place] [phone] * C-reactive Protein (09/30/2024 9:07 AM EST) C Reactive Protein 0.47 < or = 0.50 mg/dL [facility] 09/30/2024 9:07 AM EST 09/30/2024 9:07 AM EST Generic External Data Provider LAB BLOOD ORDERAB LES Final Result Performing Organization Address [facility] Phone Number [facility] [address] [place] [phone] * (ABNORMAL) Iron And Total Iron Binding Capacity (09/30/2024 9:07 AM EST) Iron 33 30 - 160 mcg/dL [facility] Total Iron Binding Capacity 396 228 - 428 mcg/dL [facility] Percent Iron Saturation 8(L) 15 - 50 % [facility] Unsaturated Iron Binding 363 ug/dL [facility] 09/30/2024 9:07 AM EST 09/30/2024 9:07 AM EST Generic External Data Provider LAB BLOOD ORDERAB LES Final Result Performing Organization Address [facility] Co de Phone Number [facility] [address] [place] [phone] * (ABNORMAL) Comprehensive Metabolic Panel (09/30/2024 9:07 AM EST) Sodium 138 135 - 145 mmol/L [facility] Potassium 3.8 3.3 - 5.1 mmol/L [facility] Chloride 108 96 - 108 mmol/L [facility] Carbon Dioxide 26 22 - 29 mmol/L [facility] Anion Gap 8(L) 12 - 20 [facility] Urea Nitrogen (BUN) 27(H) 9 - 16 mg/dL [facility] Creatinine, Serum 0.70 0.5 - 1.4 mg/dL [facility] Estimated Glomerular Filt Rate >60 [facility] Comment:Chronic Kidney Disea se: Estimated GFR < 60 mL/min/1.07c9Jsrbap Kidney Disease: Estimated GFR < 15 mL/min/1.73m2 Glucose 108 60 - 115 mg/dL [facility] Calcium 9.1 8.4 - 10.2 mg/dL [facility] Bilirubin, Total 0.3 0.0 - 1.0 mg/dL [facility] Aspartate Amino Transferase 22 5 - 31 U/L [facility] Alanine Aminotransferase 17 0 - 31 U/L [facility] Total Protein 8.4(H) 6.5 - 8.0 g/dL [facility] Albumin Level 4.4 3.5 - 5.0 g/dL [facility] Alkaline Phosphatase 74 39 - 117 U/L [facility] 09/30/2024 9:07 AM EST 09/30/2024 9:07 AM EST us Generic External Data Provider LAB BLOOD ORDERAB LES Final Result [facility] [address] [place] [phone] * Hemoglobin A1c (09/30/2024 9:07 AM EST) Hemoglobin A1c 5.9 <6.0 % [facility] Comment:Hemoglobin A1C Refer ence Range Adults: 4.8 - 6.0 % Non diabetic: < 6.0 % Goal: < 7.0 %Additional Action Suggested: > 8.0 %Note: Hemoglobin A1c results are invalid for patients with abnormal amounts of HbF. Blood transfusions may impact the HbA1c concentration in the patient sample. Estimated Average Glucose 123 mg/dL [facility] Comment:eAG = Estimated ave rage glucose which is %A1C expressed asaverage glucose, using the formula of the O4P-TijbvbvGrsxwev Glucose study (ADAG), Diabetes Care, Vol.31,#8,2007 09/30/2024 9:07 AM EST 09/30/2024 9:07 AM EST us Generic External Data Provider LAB BLOOD ORDERAB LES Final Result [facility] [address] [place] [phone] * (ABNORMAL) CBC auto differential (09/30/2024 9:07 AM EST) White Blood Count 6.8 4.8 - 10.8 X10*3/uL [facility] Red Blood Count 4.57 4.20 - 5.50 X10*6/uL [facility] Hemoglobin 11.5(L) 12.0 - 16.0 g/dl [facility] Hematocrit 37.5 37.0 - 47.0 % [facility] Mean Corpuscular Volume 82.1 80.0 - 98.0 fL [facility] Mean Corpuscular Hemoglobin 25.2(L) 27.0 - 33.0 pg [facility] Mean Corpuscular HGB Conc 30.7(L) 31.0 - 35.0 g/dl [facility] Red Cell Distribution Width 15.2 11.0 - 16.0 % [facility] Platelet Count 286 160 - 400 X10*3/uL [facility] Mean Platelet Volume 11.0 9.4 - 12.3 fL [facility] Neutrophils Percent Auto 70.2 45 - 73 % [facility] Imm Gran Pct Auto 0.4 0.0 - 0.4 % [facility] Lymphocytes Percent Auto 20.6 20 - 40 % [facility] Monocytes Percent Auto 6.1 2 - 11 % [facility] Eosinophils Percent Auto 2.3 0 - 4 % [facility] Basophils Percent Auto 0.4 0 - 2 % [facility] NRBC Pct Auto 0.0 0.0 - 0.2 /100WBC [facility] Neutrophils Absolute Auto 4.8 2.0 - 8.3 x10*3/uL [facility] Imm Gran Abs Auto 0.03 0.00 - 0.03 X10*3/uL [facility] Lymphocytes Absolute Auto 1.4 1.2 - 4.9 X10*3/uL [facility] Monocytes Absolute Auto 0.4 0.1 - 1.2 X10*3/uL [facility] Eosinophils Absolute Auto 0.2 0.0 - 0.4 X10*3/uL [facility] Basophils Absolute Auto 0.0 0.0 - 0.2 X10*3/uL [facility] NRBC Abs Auto 0.000 0.0 - 0.012 X10*3/uL [facility] 09/30/2024 9:07 AM EST 09/30/2024 9:07 AM EST us Generic External Data Provider LAB BLOOD ORDERAB LES Final Result [facility] [address] [place] [phone] documented in this encounter Visit Diagnoses Not on filedocumented in this encounter Additional Health Concerns Assessment Noted Time PHQ-9 Depression Total Score: 0 02/19/20 24 1:15 PM EDT documented as of this encounter Care Teams Sky Line Yarder Relationship Specialty Start Date End Date Sarah Bradely MD [address] [place] [phone] PCP - General Family Medicine 06/22/18 Aisha Savage Railroad Police OfficerClay House Worker 04/11/24 documented as of this encounter
--- OUTSIDE RECORDS SUMMARY | 2024-10-16 14:29 | XMS_ITS | Clinical Summary ---
Author Organization [employer] [facility] ity Address [address] [place] [address] Care Team Providers Care Compensation Adjuster Name Role Phone Unavailable Primary Care Provider [...]
--- OUTSIDE RECORDS SUMMARY | 2024-10-16 14:29 | XMS_ITS | Encounter Summary ---
Author Organization [employer] [facility] Address [address] [place] [address] Care Team Providers Care Automatic Door Mechanic Name Role Phone Sarah Bradley MD Primary Care Provide r Encounter Details Date Type Department Care Team (Latest Contact Info) Description 12/15/2020 Abstract [facility] Dental, Provider, DDS Social History Tobacco [...] Visit [facility] [address] [place] [address] Nehemias, Katy, OD [address] [place] [address] documented as of this encounter Visit Diagnoses Not on filedocumented in this encounter Care Teams Automatic Door Mechanic Relationship Specialty Start Date End Date Sarah Bradley MD [address] [place] [address] PCP - General Family Medicine 06/22/18 Aisha Savage Green Ware CasterSash Maker 04/11/24 documented as of this encounter
== END ==
PROVIDERS: PCP Internal Medicine; Visit Provider Student in an Organized Health Care Education/Training Program
DX: E66.9 Obesity, unspecified (principal); R73.03 Prediabetes
CPT/HCPCS: 99214

== ENCOUNTER 2024-10-18 09:22 | Outpatient (REF) | payer OTHER, SELFPAY ==
--- NOTE | ~2024-10-18 | US_ITS ---
EXAMINATION: US ABDOMEN COMPLETE WITH LIVER ELASTOGRAPHY HISTORY: E66.9 - Obesity, unspecified TECHNIQUE: Real-time grayscale ultrasound imaging of the abdomen was performed and images were reviewed. COMPARISON: Correlation is made with an unenhanced CT of the abdomen dated 08/05/2024. FINDINGS: Liver: The right lobe of the liver measures 20.1 cm in size. The left lobe of the liver measures 13.9 cm in size. The liver demonstrates increased echotexture, consistent with steatosis. No focal mass or intrahepatic biliary ductal dilatation is identified. There is normal hepatopedal flow in the portal vein. Ultrasound elastography of the liver was performed with 10 separate measurements of the liver parenchyma with the patient in the supine position. Measurements were obtained approximately 2 cm below Dawson's capsule and perpendicular to the capsule. Images are of satisfactory quality. The median shear wave velocity is 1.11 m/s. The interquartile range/median (IQR/median) is 0.20. Gallbladder and biliary tree: The gallbladder is unremarkable, without evidence of calculi, wall thickening, or pericholecystic fluid. There is no sonographic Jackson sign. The common bile duct is normal in caliber measuring 7 mm. Kidneys: The right kidney measures 11.0 cm in length. The left kidney measures 10.4 cm in length. The kidneys are unremarkable, without evidence of masses, hydronephrosis, or calculi. Pancreas: The pancreatic head, neck, and body are unremarkable. The pancreatic tail is obscured by bowel gas. Spleen: The spleen is normal in size and contour, measuring 10.4 cm in length. Abdominal aorta and inferior vena cava: The visualized portions of the abdominal aorta and inferior vena cava are normal in caliber. There is no free fluid in the abdomen. US/US abdomen comp w elastography IMPRESSION: Hepatomegaly and hepatic steatosis. The median shear wave velocity is 1.11 m/s, corresponding to a median liver stiffness of 3.7 kPa. The IQR/median value is 0.20. This is indicative of a poor quality data set, and the estimated liver stiffness may be unreliable. Findings are indicative of a normal elastography value with a low likelihood of severe fibrosis or cirrhosis. REFERENCE: Society of Radiologists in Ultrasound Liver Stiffness Thresholds (2020): LIVER STIFFNESS THRESHOLDS: *Shear wave velocity less than 1.3 m/s (Liver Stiffness equal or less than 5 kPa): High probability of being normal. *Shear wave velocity less than 1.7 m/s (Liver Stiffness less than 9 kPa): In the absence of other known clinical signs, rules out compensated advanced chronic liver disease. *Shear wave velocity between 1.7-2.1 m/s (Liver Stiffness 9-13 kPa): Suggestive of compensated advanced chronic liver disease but need further test for confirmation. *Shear wave velocity between 2.1-2.4 m/s (Liver Stiffness 13-17 kPa): Rules in compensated advanced chronic liver disease. *Shear wave velocity greater than 2.4 m/s (Liver Stiffness over 17 kPa): Suggestive of clinically significant portal hypertension. QUALITY OF DATA SET: *IQR/Median value equal or less than 0.15 implies a quality data set. *IQR/Median value over 0.15 implies a poor quality data set. SIGNIFICANT CHANGE FROM PRIOR EXAM: Significant change if liver stiffness measurement is 10% or greater from prior exam. OTHER CONSIDERATIONS: The stage of liver fibrosis may be overestimated in the setting of acute hepatitis, liver inflammation, elevated liver function tests, hepatic vascular congestion, obstructive cholestasis, non-fasting state, and infiltrative diseases such as amyloidosis and lymphoma. In some patients with NAFLD, the liver stiffness thresholds for compensated advanced chronic liver disease may be lower. In causes other than viral hepatitis and NAFLD, liver stiffness thresholds are not well established. Electronically signed by: Johnny Corado MD 10/18/2024 12:46 PM [facility]
--- OUTSIDE RECORDS SUMMARY | 2024-10-18 09:46 | XMS_ITS | Encounter Summary ---
Author Organization [employer] Address [address] [place] [address] Care Team Providers Care Assistant County Attorney Name Role Phone Sarah Bradley MD Primary Care Provide r Encounter Details Date Type Department Care Team ([facility] st Contact Info) Description 07/26/2024 Telephone [facility] MEDICINE [address] [place], [place] [phone] Sarah Bradley MD [address] [place], [place] [phone] Social History Tobacco Use Types Packs/Day Years [...] [facility] [address] [place] [address] Nehemias, Katy, OD [address] [place] [address] documented as of this encounter Visit Diagnoses Not on filedocumented in this encounter Additional Health Concerns Assessment Noted Time PHQ-9 Depression Total Score: 0 02/19/20 24 1:15 PM EDT documented as of this encounter Care Teams Assistant County Attorney Relationship Specialty Start Date End Date Sarah Bradley MD [address] [place], [place] [phone] PCP - General Family Medicine 06/22/18 Aisha Savage Planer Chain OffbearerTar Processing Technician 04/11/24 documented as of this encounter
--- OUTSIDE RECORDS SUMMARY | 2024-10-18 09:46 | XMS_ITS | Clinical Summary ---
Author Organization [employer] [facility] ity Address [address] [place] [address] Care Team Providers Care Staff Development Educator Name Role Phone Unavailable Primary Care Provider [...]
--- OUTSIDE RECORDS SUMMARY | 2024-10-18 09:46 | XMS_ITS | Encounter Summary ---
Author Organization [employer] Address [address] [place] [address] Care Team Providers Care Bandmill Operator Name Role Phone Sarah Bradley MD Primary Care Provide r Encounter Details Date Type Department Care Team ([facility] Contact Info) Description 01/27/2023 Abstract [facility] MEDICINE [address] [place] [address] Sarah Bradley MD [address] [place] [address] Social History Tobacco Use Types Packs/Day Years [...] Upcoming Encounters Date Type Department Care Team ([facility] Contact Info) Description 01/29/2025 10:30 AM EDT Office Visit [facility] OPT[facility] [address] [place] [address] Katy Del Cid RAYO [address] [place] [address] documented as of this encounter Procedures Procedure [...] documented as of this encounter Care Teams Bandmill Operator Relationship Specialty Start Date End Date Sarah Bradley MD [address] [place] [address] PCP - General Family Medicine 06/22/18 Aisha Savage Transfer Table Operator HelperWarehouse Forklift Operator 04/11/24 documented as of this encounter
--- OUTSIDE RECORDS SUMMARY | 2024-10-18 09:46 | XMS_ITS | Encounter Summary ---
Author Organization [employer] Address [address] [place] [address] Care Team Providers Care High School Math Tutor Name Role Phone Sarah Bradley MD Primary Care Provide r Reason for Visit * Reason Onset Date Comments PT1 03/22/2024 Encounter Details Date Type Department Care Team ([facility] Contact Info) Description 03/22/2024 Telephone [facility] MEDICINE [address] [place], [place] [phone] Sarah Bradley MD [address] [place] [address] PT1 Social History Tobacco Use Types Packs/Day [...] Y/N: Yes Provider name or facility name: [facility] Facility Address: [address] [place] [address] Escort needed: Y/N: No Do you have a wheelchair: Y/N: No If yes- Manual or electric: n/a Visits; all future visits documented in this encounter Plan of Treatment Upcoming Encounters Date Type Department Care Team (Late st Contact Info) Description 01/29/2025 10:30 AM EDT Office Visit [facility] OPTOMETRY [address] [place] [address] Katy Del Cid, OD [address] [place] [address] documented as of this encounter Visit Diagnoses Not on filedocumented in this encounter Additional Health Concerns Assessment Noted Time PHQ-9 Depression Total Score: 0 02/19/20 24 1:15 PM EDT documented as of this encounter Care Teams High School Math Tutor Relationship Specialty Start Date End Date Sarah Bradley MD [address] [place] [address] PCP - General Family Medicine 06/22/18 Aisha Savage Gas Furnace InstallerPrimary Care Physician 04/11/24 documented as of this encounter
--- OUTSIDE RECORDS SUMMARY | 2024-10-18 09:46 | XMS_ITS | Encounter Summary ---
Author Organization [employer] Address [address] [place] [address] Care Team Providers Care Ornamental Painter Name Role Phone Sarah Bradley MD Primary Care Provide r Encounter Details Date Type Department Care Team ([facility] Contact Info) Description 03/22/2023 Abstract [facility] MEDICINE [address] [place] [address] Sarah Bradley MD [address] [place] [address] Social History Tobacco Use Types Packs/Day Years [...] Upcoming Encounters Date Type Department Care Team ([facility] Contact Info) Description 01/29/2025 10:30 AM EDT Office Visit [facility] OPTOMETRY [address] [place], [place] [phone] Katy Del Cid, OD [address] [place], [place] [phone] documented as of this encounter Visit Diagnoses Not on filedocumented in this encounter Additional Health Concerns Assessment Noted Time PHQ-9 Depression Total Score: 0 01/18/20 23 10:22 AM EDT documented as of this encounter Care Teams Ornamental Painter Relationship Specialty Start Date End Date Sarah Bradley MD [address] [place], [place] [phone] PCP - General Family Medicine 06/22/18 Aisha Savage Tank CrewmemberSpeech Lang Path 04/11/24 documented as of this encounter
--- OUTSIDE RECORDS SUMMARY | 2024-10-18 09:46 | XMS_ITS | Encounter Summary ---
Author Organization [employer] Address [address] [place] [address] Care Team Providers Care Activities Volunteer Name Role Phone Sarah Bradley MD Primary Care Provide r Encounter Details Date Type Department Care Team ([facility] Contact Info) Description 03/22/2023 Orders Only [facility] MEDICINE [address] [place] [address] Provider, MD Yessi Social History Tobacco Use [...] Upcoming Encounters Date Type Department Care Team ([facility] Contact Info) Description 01/29/2025 10:30 AM EDT Office Visit [facility] OPTOMETRY [address] [place], [place] [phone] Katy Del Cid, OD [address] [place] [address] documented as of this encounter Procedures Procedure [...] documented as of this encounter Care Teams Activities Volunteer Relationship Specialty Start Date End Date Sarah Bradley MD [address] [place] [phone] PCP - General Family Medicine 06/22/18 Aisha Savage CouplerProcess Validation Engineer 04/11/24 documented as of this encounter
--- OUTSIDE RECORDS SUMMARY | 2024-10-18 09:46 | XMS_ITS | Encounter Summary ---
Author Organization [employer] [facility] Address [address] [place] [address] Care Team Providers Care Patient Svcs Mgr Name Role Phone Sarah Bradley MD Primary Care Provide r Encounter Details Date Type Department Care Team (Latest Contact Info) Description 12/15/2020 Abstract [facility] CONVERSION[facility] Dental, Provider, DDS Social History [...] Description 01/29/2025 10:30 AM EDT Office Visit [facility] OPTOMETRY [address] [place] [address] Nehemias, Katy, OD [address] [place] [address] documented as of this encounter Visit Diagnoses Not on filedocumented in this encounter Care Teams Patient Svcs Mgr Relationship Specialty Start Date End Date Sarah Bradley MD 230 [place] [address] PCP - General Family Medicine 06/22/18 Aisha Savage University Administrative AssistantMedical Dir 04/11/24 documented as of this encounter
--- OUTSIDE RECORDS SUMMARY | 2024-10-18 09:46 | XMS_ITS | Encounter Summary ---
Author Organization [employer] Address [address] [facility] [address] [address] [place] [address] Care Team Providers Care Biztalk Software Developer Name Role Phone Sarah Bradley MD Primary Care Provide r Encounter Details Date Type Department Care Team (Late Contact Info) Description 06/07/2023 Abstract [facility] MEDICINE [address] [place] [address] Sarah Bradley MD [address] [place], [place] [phone] Social History Tobacco Use Types Packs/Day Years [...] Description 01/29/2025 10:30 AM EDT Office Visit [facility] OPTOMETRY [address] [place], [place] [phone] Katy Del Cid, OD [address] [place], [place] [phone] documented as of this encounter Procedures Procedure [...] documented as of this encounter Care Teams Biztalk Software Developer Relationship Specialty Start Date End Date Sarah Bradley MD [address] [place] [address] PCP - General Family Medicine 06/22/18 Aisha Savage Technical Sales RepresentativeStage Driver 04/11/24 documented as of this encounter
--- OUTSIDE RECORDS SUMMARY | 2024-10-18 09:46 | XMS_ITS | Encounter Summary ---
Author Organization [employer] Address [address] [place] [address] Care Team Providers Care Boilermaking Supervisor Name Role Phone Sarah Bradley MD Primary [...] Description 01/29/2025 10:30 AM EDT Office Visit [facility] [address] [place], [place] [phone] [place], [place], OD [address] [place] [address] documented as of this encounter Procedures Procedure [...] EST Narrative 09/30/2024 10:16 AM EST ? [facility] ?[address] ?[place] [address] ?XRay Report ? Signed ? Patient: Sarah Sheikh Brian ?MR#: [id number] ?? [id number] ? : 1985 ?Acct:[id number] ? Age/Sex: 39 / F ?ADM Date: 09/30/24 ? Loc: HO.XRAY ? Attending Dr: Parmjit Caraballo MD ? Ordering Physician: Parmjit Caraballo MD ?? Date of Service: 09/30/24 ?? Procedure(s): XR chest 2V ?? Accession Number(s): [id number] ? cc: Sarah Bradley MD; Parmjit Caraballo [...] DD/ 0909 ? TD/TT: 09/30/24 0919 ? Slate Trimmer: YOHANA ? Procedure Note Donotuseinterpreter, Image - 09/30/[address] [address] XRay Report Signed Patient: Sarah Sheikh IMR#: [id number] : 1985Acct:[id number] Age/Sex: 39 / FADM Date: 09/30/24 Loc: HO.XRAY Attending Dr: Parmjit Caraballo MD Ordering Physician: Parmjit Caraballo MD Date of Service: 09/30/24 Procedure(s): XR chest 2V Accession Number(s): [id number] cc: Sarah Bradley MD; Parmjit Caraballo MD [...] OV> 09/30/24 1013 DD/ 0909 TD/TT: 09/30/24918 Slate Trimmer: [facility] External Provider IMG XR PROCEDURES Edited Result - Final * Vitamin B1 (09/30/2024 9:07 AM EST) Vitamin B1 12 8 - 30 nmol/L [facility] Comment:Vitamin supplementat ion within 24 hours prior toblood draw may affect the accuracy of the results.This test was developed and its analytical performancecharacteristics have been determined by [facility] [place], [place]. It hasnot been cleared or approved by the U.S. Food and DrugAdministration. This assay has been validated pursuantto the CLIA regulations and is used for clinicalpurposes.THIS TEST WAS PERFORMED AT:[employer] [id number] [place] [id number] RAYMOND MD,PHD 09/30/2024 9:07 AM EST 09/30/2024 9:07 AM EST Generic External Data Provider LAB BLOOD ORDERAB LES Final Result Performing Organization Address [facility] de Phone Number [facility] [address] [place] [phone] * (ABNORMAL) Vitamin A (09/30/2024 9:07 AM EST) Vitamin A (Retinol) 36(A) 38 - 98 mcg/dL [facility] Comment:Vitamin supplementat ion within 24 hours prior toblood draw may affect the accuracy of the results.This test was developed and its analytical performancecharacteristics have been determined by [facility] [place], [place]. It hasnot been cleared or approved by the U.S. Food and DrugAdministration. This assay has been validated pursuantto the CLIA regulations and is used for clinicalpurposes.THIS TEST WAS PERFORMED AT:[employer] [id number] [place] [address]FXYIBCPMEERA RAYMOND MD,PHD 09/30/2024 9:07 AM EST 09/30/2024 9:07 AM EST Generic External Data Provider LAB BLOOD ORDERAB LES Final Result Performing Organization Address [facility] Co de Phone Number [facility] [address] [place] [phone] * Zinc (09/30/2024 9:07 AM EST) Zinc 71 60 - 130 mcg/dL [facility] Comment:This test was develo ped and its analytical performancecharacteristics have been determined by [employer] [place], [place]. It hasnot been cleared or approved by the U.S. Food and DrugAdministration. This assay has been validated pursuantto the CLIA regulations and is used for clinicalpurposes.THIS TEST WAS PERFORMED AT:[id number] [place] [address]RLSIBORMEERA RAYMOND MD,PHD 09/30/2024 9:07 AM EST 09/30/2024 9:07 AM EST Generic External Data Provider LAB BLOOD ORDERAB LES Final Result Performing Organization Address [facility] Co de Phone Number [facility] [address] [place] [address] [phone] * Insulin (09/30/2024 9:07 AM EST) Pathologist [facility] Insulin 18 2 - 29 uU/mL [facility] Comment:This test was perfor med [...] ORDERAB LES Final Result Performing Organization Address [facility] Co de Phone Number [facility] [address] [place] [phone] * TSH with Reflex to Free T4 (09/30/2024 9:07 AM EST) Pathologist [facility] TSH reflex Free T4 1.27 0.32 - 4.0 uIU/mL [facility] 09/30/2024 9:07 AM EST 09/30/2024 9:07 AM EST Generic External Data Provider LAB BLOOD ORDERAB LES Final Result [facility] [address] [place] [phone] * (ABNORMAL) Vitamin D, 25-Hydroxy, Total, Immunoassay (09/30/2024 9:07 AM EST) Vitamin D 25-OH Total 22.6(L) >30 ng/mL [facility] Comment:Health Based Referen ce Values*< 20 ng/mL Vxofyhiul98-54 ng/mL Insufficient> 30 ng/mL Sufficient*Red ODONNELL. N [...] Provider LAB BLOOD ORDERAB LES Final Result [facility] [address] [place] [phone] * Ferritin (09/30/2024 9:07 AM EST) Ferritin 10 10 - 122 ng/mL [facility] 09/30/2024 9:07 AM EST 09/30/2024 9:07 AM EST Generic External Data Provider LAB BLOOD ORDERAB LES Final Result Performing Organization Address City/[facility]/ZIP Co de Phone Number [facility] [address] [place] [phone] * Vitamin B12 (Cobalamin) and Folate Panel, Serum (09/30/2024 9:07 AM EST) Vitamin B12 508 200 - 900 pg/mL [facility] Comment:NORMAL 200-900 PG/ML INDETERMINATE 160-199 PG/ML DEFICIENT < 160 PG/ML Folate 13.1 > or = 4.0 ng/mL [facility] Comment:Reference Values:> o r = 4.0 ng/mL< 4.0 ng/mL suggests folate deficiency Methotrexate, aminopterin and folinic acid(leucovorin) are chemotherapeutic agents whose molecularstructures are similar to folate; therefore, the Architectfolate assay cannot be used for patients using these drugs. 09/30/2024 9:07 AM EST 09/30/2024 9:07 AM EST Andel External Data Provider LAB BLOOD ORDERAB LES Final Result Performing Organization Address [facility] Co de Phone Number [facility] [address] [place] [phone] * (ABNORMAL) Lipid Panel, Standard (09/30/2024 9:07 AM EST) Triglycerides 150(H) <150 mg/dL [facility] Comment:Desirable Triglyceri de: less than 150 mg/dLBorderline High Triglyceride 150-199 mg/dLHigh Triglyceride: 200-499 mg/dLVery High Triglyceride: greater than or equal to 5OO mg/dL Cholesterol 170 <200 mg/dL [facility] Comment:Desirable Cholestero l: less than 200 mg/dLBorderline High Cholesterol: 200-239 mg/dLHigh Cholesterol: greater than 239 mg/dL LDL Cholesterol Calculated 101(H) <100 mg/dL [facility] Comment:Desirable LDL: less than 100 mg/dLNear Optimal/Above Optimal LDL: 110- 129 mg/dLBorderline High LDL: 130-159 mg/dLHigh LDL: 160-189 mg/dLVery High LDL: greater than or equal to 190 mg/dL HDL Cholesterol 39(L) >40 mg/dL [facility] Comment:Desirable HDL: great er than 40 mg/dL Note: This HDL assay may give artificially low results in patients with liver disease. 09/30/2024 9:07 AM EST 09/30/2024 9:07 AM EST us Generic External Data Provider LAB BLOOD ORDERAB LES Final Result Performing Organization Address [facility] Co de Phone Number [facility] [address] [place] [phone] * C-reactive Protein (09/30/2024 9:07 AM EST) C Reactive Protein 0.47 < or = 0.50 mg/dL [facility] 09/30/2024 9:07 AM EST 09/30/2024 9:07 AM EST Generic External Data Provider LAB BLOOD ORDERAB LES Final Result Performing Organization Address [facility] Phone Number [facility] [address] [place] [phone] * (ABNORMAL) Iron And Total Iron Binding Capacity (09/30/2024 9:07 AM EST) Iron 33 30 - 160 mcg/dL [facility] Total Iron Binding Capacity 396 228 - 428 mcg/dL [facility] Percent Iron Saturation 8(L) 15 - 50 % [facility] Unsaturated Iron Binding 363 ug/dL [facility] 09/30/2024 9:07 AM EST 09/30/2024 9:07 AM EST Generic External Data Provider LAB BLOOD ORDERAB LES Final Result Performing Organization Address [facility] Co de Phone Number [facility] [address] [place] [phone] * (ABNORMAL) Comprehensive Metabolic Panel (09/30/2024 9:07 AM EST) Sodium 138 135 - 145 mmol/L [facility] Potassium 3.8 3.3 - 5.1 mmol/L [facility] Chloride 108 96 - 108 mmol/L [facility] Carbon Dioxide 26 22 - 29 mmol/L [facility] Anion Gap 8(L) 12 - 20 [facility] Urea Nitrogen (BUN) 27(H) 9 - 16 mg/dL [facility] Creatinine, Serum 0.70 0.5 - 1.4 mg/dL [facility] Estimated Glomerular Filt Rate >60 [facility] Comment:Chronic Kidney Disea se: Estimated GFR < 60 mL/min/1.52v6Jpndze Kidney Disease: Estimated GFR < 15 mL/min/1.73m2 Glucose 108 60 - 115 mg/dL [facility] Calcium 9.1 8.4 - 10.2 mg/dL [facility] Bilirubin, Total 0.3 0.0 - 1.0 mg/dL [facility] Aspartate Amino Transferase 22 5 - 31 U/L [facility] Alanine Aminotransferase 17 0 - 31 U/L [facility] Total Protein 8.4(H) 6.5 - 8.0 g/dL [facility] Albumin Level 4.4 3.5 - 5.0 g/dL [facility] Alkaline Phosphatase 74 39 - 117 U/L [facility] 09/30/2024 9:07 AM EST 09/30/2024 9:07 AM EST us Generic External Data Provider LAB BLOOD ORDERAB LES Final Result [facility] [address] [place] [phone] * Hemoglobin A1c (09/30/2024 9:07 AM EST) Hemoglobin A1c 5.9 <6.0 % [facility] Comment:Hemoglobin A1C Refer ence Range Adults: 4.8 - 6.0 % Non diabetic: < 6.0 % Goal: < 7.0 %Additional Action Suggested: > 8.0 %Note: Hemoglobin A1c results are invalid for patients with abnormal amounts of HbF. Blood transfusions may impact the HbA1c concentration in the patient sample. Estimated Average Glucose 123 mg/dL [facility] Comment:eAG = Estimated ave rage glucose which is %A1C expressed asaverage glucose, using the formula of the [id number] Glucose study (ADAG), Diabetes Care, Vol.31,#8,2007 09/30/2024 9:07 AM EST 09/30/2024 9:07 AM EST us Generic External Data Provider LAB BLOOD ORDERAB LES Final Result [facility] [address] [place] [phone] * (ABNORMAL) CBC auto differential (09/30/2024 9:07 AM EST) White Blood Count 6.8 4.8 - 10.8 X10*3/uL [facility] Red Blood Count 4.57 4.20 - 5.50 X10*6/uL [facility] Hemoglobin 11.5(L) 12.0 - 16.0 g/dl [facility] Hematocrit 37.5 37.0 - 47.0 % [facility] Mean Corpuscular Volume 82.1 80.0 - 98.0 fL [facility] Mean Corpuscular Hemoglobin 25.2(L) 27.0 - 33.0 pg [facility] Mean Corpuscular HGB Conc 30.7(L) 31.0 - 35.0 g/dl [facility] Red Cell Distribution Width 15.2 11.0 - 16.0 % [facility] Platelet Count 286 160 - 400 X10*3/uL [facility] Mean Platelet Volume 11.0 9.4 - 12.3 fL [facility] Neutrophils Percent Auto 70.2 45 - 73 % [facility] Imm Gran Pct Auto 0.4 0.0 - 0.4 % [facility] Lymphocytes Percent Auto 20.6 20 - 40 % [facility] Monocytes Percent Auto 6.1 2 - 11 % [facility] Eosinophils Percent Auto 2.3 0 - 4 % [facility] Basophils Percent Auto 0.4 0 - 2 % [facility] NRBC Pct Auto 0.0 0.0 - 0.2 /100WBC [facility] Neutrophils Absolute Auto 4.8 2.0 - 8.3 x10*3/uL [facility] Imm Gran Abs Auto 0.03 0.00 - 0.03 X10*3/uL [facility] Lymphocytes Absolute Auto 1.4 1.2 - 4.9 X10*3/uL [facility] Monocytes Absolute Auto 0.4 0.1 - 1.2 X10*3/uL [facility] Eosinophils Absolute Auto 0.2 0.0 - 0.4 X10*3/uL [facility] Basophils Absolute Auto 0.0 0.0 - 0.2 X10*3/uL [facility] NRBC Abs Auto 0.000 0.0 - 0.012 X10*3/uL [facility] 09/30/2024 9:07 AM EST 09/30/2024 9:07 AM EST us Generic External Data Provider LAB BLOOD ORDERAB LES Final Result [facility] [address] [place] [address] [phone] documented in this encounter Visit Diagnoses Not on filedocumented in this encounter Additional Health Concerns Assessment Noted Time PHQ-9 Depression Total Score: 0 02/19/20 24 1:15 PM EDT documented as of this encounter Care Teams Boilermaking Supervisor Relationship Specialty Start Date End Date Saarh Bradley MD [address] [place] [phone] PCP - General Family Medicine 06/22/18 Aisha Savage Supervisor RemeltHome Health Manager 04/11/24 documented as of this encounter
--- OUTSIDE RECORDS SUMMARY | 2024-10-18 09:46 | XMS_ITS | Clinical Summary ---
Author Organization [employer] Address [address] [place] [address] Care Team Providers Care Faucets Assembler Name Role Phone Sarah Bradley MD Primary Care Provide r Allergies Active Allergy Reactions Criticality Noted Date Comments Latex 09/01/2022 Medications Alcohol Swabs ([facility] Prep) 70 % pads PLEASE USE DIRECTED FOR FOUR TIMES DAILY BLOOD GLUCOSE MONITORING IN 2 Active Aspirin Low Dose 81 MG EC tablet TAKE 2 TABLETS BY MOUTH EVERY DAY 2 Active Blood Glucose Monitoring Suppl (FreeStyle [place] Lite) w/Device kit TEST 4 TIMES A [...] (BMI) of 37.0 to 37.9 in adult ([facility]) Take 1 capsule (15 mg) by mouth [...] DEPARTMENT Provider, Generic External Data 08/12/2024 Refill [facility] MEDICINE [address] [place] [address] Sarah Bradley MD Acquired hypothyroidism; Impaired glucose tolerance test; Primary hypertension 08/05/2024 Orders Only [facility] External Provider, [facility] 07/26/2024 Telephone [facility] MEDICINE [address] [place] [address] Sarah Bradley MD from Last [...] Description 01/29/2025 10:30 AM EDT Office Visit [facility] OPTOMETRY [address] [place] [address] Nehemias, Katy, OD [address] [place] [address] Health Maintenance Due Date Last Done Comments [...] ADULT Routine 12/15/2020 1 2:00 AM EDT INTRAORAL - COMPLETE SERIES OF RADIOGRAPHIC IMAGES Routine 11/27/2020 12:00 [...] EST Narrative 09/30/2024 10:16 AM EST ? [facility] ?[address] ?[place] [address] ?XRay Report ? Signed ? Patient: Sarah Sheikh I ?MR#: [id number] ?? [id number] ? : 1985 ?Acct:[id number] ? Age/Sex: 39 / F ?ADM Date: 09/30/24 ? Loc: HO.XRAY ? Attending Dr: Parmjit Caraballo MD ? Ordering Physician: Parmjit Caraballo MD ?? Date of Service: 09/30/24 ?? Procedure(s): XR chest 2V ?? Accession Number(s): [id number] ? cc: Sarah Bradley MD; Parmjit Caraballo [...] DD/ 0909 ? TD/TT: 09/30/24 0919 ? Vitamin Manager: YOHANA ? Procedure Note Donotuseinterpreter, Image - 09/30/[address] [address] XRay Report Signed Patient: Sarah Sheikh IMR#: [id number] : 1985Acct:[id number] Age/Sex: 39 / FADM Date: 09/30/24 Loc: K[facility]ST[facility] Attending Dr: Parmjit Caraballo MD Ordering Physician: Parmjit Caraballo MD Date of Service: 09/30/24 Procedure(s): XR chest 2V Accession Number(s): [id number] cc: Sarah Bradley MD; Parmjit Caraballo MD [...] OV> 09/30/24 1013 DD/ 0909 TD/TT: 09/30/24918 Vitamin Manager: YOHANA [facility] External Provider IMG XR PROCEDURES Edited Result - Final * (ABNORMAL) Vitamin D, 25-Hydroxy, Total, Immunoassay (09/30/2024 9:07 AM EST) Vitamin D 25-OH Total 22.6(L) >30 ng/mL [facility] Comment:Health Based Referen ce Values*< 20 ng/mL Mtfuatifo56-52 ng/mL Insufficient> 30 ng/mL Sufficient*Red ODONNELL. N [...] ORDERAB LES Final Result Performing Organization Address [facility]/ZIP Co de Phone Number [facility] [address] [place] [phone] * Vitamin B12 (Cobalamin) and Folate Panel, Serum (09/30/2024 9:07 AM EST) Vitamin B12 508 200 - 900 pg/mL [facility] Comment:NORMAL 200-900 PG/ML INDETERMINATE 160-199 PG/ML DEFICIENT < 160 PG/ML Folate 13.1 > or = 4.0 ng/mL [facility] Comment:Reference Values:> o r = 4.0 ng/mL< 4.0 ng/mL suggests folate deficiency Methotrexate, aminopterin and folinic acid(leucovorin) are chemotherapeutic agents whose molecularstructures are similar to folate; therefore, the Architectfolate assay cannot be used for patients using these drugs. 09/30/2024 9:07 AM EST 09/30/2024 9:07 AM EST us Generic External Data Provider LAB BLOOD ORDERAB LES Final Result Performing Organization Address City/[facility]/ZIP Co de Phone Number [facility] [address] [place] [address] [place] [phone] * TSH with Reflex to Free T4 (09/30/2024 9:07 AM EST) TSH reflex Free T4 1.27 0.32 - 4.0 uIU/mL [facility] 09/30/2024 9:07 AM EST 09/30/2024 9:07 AM EST us Generic External Data Provider LAB BLOOD ORDERAB LES Final Result [facility] [address] [place] [address] [phone] * (ABNORMAL) CBC auto differential (09/30/2024 9:07 AM EST) Pathologist [facility] White Blood Count 6.8 4.8 - 10.8 X10*3/uL [facility] Red Blood Count 4.57 4.20 - 5.50 X10*6/uL [facility] Hemoglobin 11.5(L) 12.0 - 16.0 g/dl [facility] Hematocrit 37.5 37.0 - 47.0 % [facility] Mean Corpuscular Volume 82.1 80.0 - 98.0 fL [facility] Mean Corpuscular Hemoglobin 25.2(L) 27.0 - 33.0 pg [facility] Mean Corpuscular HGB Conc 30.7(L) 31.0 - 35.0 g/dl [facility] Red Cell Distribution Width 15.2 11.0 - 16.0 % [facility] Platelet Count 286 160 - 400 X10*3/uL [facility] Mean Platelet Volume 11.0 9.4 - 12.3 fL [facility] Neutrophils Percent Auto 70.2 45 - 73 % [facility] Imm Gran Pct Auto 0.4 0.0 - 0.4 % [facility] Lymphocytes Percent Auto 20.6 20 - 40 % [facility] Monocytes Percent Auto 6.1 2 - 11 % [facility] Eosinophils Percent Auto 2.3 0 - 4 % [facility] Basophils Percent Auto 0.4 0 - 2 % [facility] NRBC Pct Auto 0.0 0.0 - 0.2 /100WBC [facility] Neutrophils Absolute Auto 4.8 2.0 - 8.3 x10*3/uL [facility] Imm Gran Abs Auto 0.03 0.00 - 0.03 X10*3/uL [facility] Lymphocytes Absolute Auto 1.4 1.2 - 4.9 X10*3/uL [facility] Monocytes Absolute Auto 0.4 0.1 - 1.2 X10*3/uL [facility] Eosinophils Absolute Auto 0.2 0.0 - 0.4 X10*3/uL [facility] Basophils Absolute Auto 0.0 0.0 - 0.2 X10*3/uL [facility] NRBC Abs Auto 0.000 0.0 - 0.012 X10*3/uL [facility] 09/30/2024 9:07 AM EST 09/30/2024 9:07 AM EST us Generic External Data Provider LAB BLOOD ORDERAB LES Final Result Performing Organization Address [facility] de Phone Number [facility] [address] [place] [phone] * (ABNORMAL) Iron And Total Iron Binding Capacity (09/30/2024 9:07 AM EST) Iron 33 30 - 160 mcg/dL [facility] Total Iron Binding Capacity 396 228 - 428 mcg/dL [facility] Percent Iron Saturation 8(L) 15 - 50 % [facility] Unsaturated Iron Binding 363 ug/dL [facility] 09/30/2024 9:07 AM EST 09/30/2024 9:07 AM EST us Generic External Data Provider LAB BLOOD ORDERAB LES Final Result Performing Organization Address [facility] Co de Phone Number [facility] [address] [place] [address] [phone] * Insulin (09/30/2024 9:07 AM EST) Insulin 18 2 - 29 uU/mL [facility] Comment:This test was perfor med [...] ORDERAB LES Final Result Performing Organization Address City/[facility]/ZIP Co de Phone Number [facility] [address] [place] [phone] * Zinc (09/30/2024 9:07 AM EST) Zinc 71 60 - 130 mcg/dL [facility] Comment:This test was develo ped and its analytical performancecharacteristics have been determined by [employer] [place], [place]. It hasnot been cleared or approved by the U.S. Food and DrugAdministration. This assay has been validated pursuantto the CLIA regulations and is used for clinicalpurposes.THIS TEST WAS PERFORMED AT:[facility] [place] [address]QGEUDGLMEERA RAYMOND MD,PHD 09/30/2024 9:07 AM EST 09/30/2024 9:07 AM EST us Generic External Data Provider LAB BLOOD ORDERAB LES Final Result Performing Organization Address City/[facility]/ZIP Co de Phone Number [facility] [address] [place] [phone] * (ABNORMAL) Vitamin A (09/30/2024 9:07 AM EST) Vitamin A (Retinol) 36(A) 38 - 98 mcg/dL [facility] Comment:Vitamin supplementat ion within 24 hours prior toblood draw may affect the accuracy of the results.This test was developed and its analytical performancecharacteristics have been determined by [employer] [place], [place]. It hasnot been cleared or approved by the U.S. Food and DrugAdministration. This assay has been validated pursuantto the CLIA regulations and is used for clinicalpurposes.THIS TEST WAS PERFORMED AT:[facility] [place] [address]SVSMWVPMEERA RAYMOND MD,PHD 09/30/2024 9:07 AM EST 09/30/2024 9:07 AM EST Generic External Data Provider LAB BLOOD ORDERAB LES Final Result Performing Organization Address [facility]/ZIP Co de Phone Number [facility] [address] [place] [phone] * C-reactive Protein (09/30/2024 9:07 AM EST) [facility] C Reactive Protein 0.47 < or = 0.50 mg/dL [facility] 09/30/2024 9:07 AM EST 09/30/2024 9:07 AM EST Generic External Data Provider LAB BLOOD ORDERAB LES Final Result Performing Organization Address [facility] Co de Phone Number [facility] [address] [place] [phone] * Vitamin B1 (09/30/2024 9:07 AM EST) Vitamin B1 12 8 - 30 nmol/L [facility] Comment:Vitamin supplementat ion within 24 hours prior toblood draw may affect the accuracy of the results.This test was developed and its analytical performancecharacteristics have been determined by [employer] [place]. It hasnot been cleared or approved by the U.S. Food and DrugAdministration. This assay has been validated pursuantto the CLIA regulations and is used for clinicalpurposes.THIS TEST WAS PERFORMED AT:[facility] [place] [address]JSUKNUZMEERA RAYMOND MD,PHD 09/30/2024 9:07 AM EST 09/30/2024 9:07 AM EST us Generic External Data Provider LAB BLOOD ORDERAB LES Final Result Performing Organization Address [facility] Co de Phone Number [facility] [address] [place] [phone] * Hemoglobin A1c (09/30/2024 9:07 AM EST) Hemoglobin A1c 5.9 <6.0 % [facility] Comment:Hemoglobin A1C Refer ence Range Adults: 4.8 - 6.0 % Non diabetic: < 6.0 % Goal: < 7.0 %Additional Action Suggested: > 8.0 %Note: Hemoglobin A1c results are invalid for patients with abnormal amounts of HbF. Blood transfusions may impact the HbA1c concentration in the patient sample. Estimated Average Glucose 123 mg/dL [facility] Comment:eAG = Estimated ave rage glucose which is %A1C expressed asaverage glucose, using the formula of the D6J-HwcrrhyYxufekj Glucose study (ADAG), Diabetes Care, Vol.31,#8,Aug. 2007 09/30/2024 9:07 AM EST 09/30/2024 9:07 AM EST us Generic External Data Provider LAB BLOOD ORDERAB LES Final Result Performing Organization Address [facility] Co de Phone Number [facility] [address] [place] [phone] * Ferritin (09/30/2024 9:07 AM EST) Ferritin 10 10 - 122 ng/mL [facility] 09/30/2024 9:07 AM EST 09/30/2024 9:07 AM EST Generic External Data Provider LAB BLOOD ORDERAB LES Final Result Performing Organization Address [facility]/ZIP Co de Phone Number [facility] [address] [place] [phone] * (ABNORMAL) Lipid Panel, Standard (09/30/2024 9:07 AM EST) Triglycerides 150(H) <150 mg/dL [facility] Comment:Desirable Triglyceri de: less than 150 mg/dLBorderline High Triglyceride 150-199 mg/dLHigh Triglyceride: 200-499 mg/dLVery High Triglyceride: greater than or equal to 5OO mg/dL Cholesterol 170 <200 mg/dL [facility] Comment:Desirable Cholestero l: less than 200 mg/dLBorderline High Cholesterol: 200-239 mg/dLHigh Cholesterol: greater than 239 mg/dL LDL Cholesterol Calculated 101(H) <100 mg/dL [facility] Comment:Desirable LDL: less than 100 mg/dLNear Optimal/Above Optimal LDL: 110- 129 mg/dLBorderline High LDL: 130-159 mg/dLHigh LDL: 160-189 mg/dLVery High LDL: greater than or equal to 190 mg/dL HDL Cholesterol 39(L) >40 mg/dL [facility] Comment:Desirable HDL: great er than 40 mg/dL Note: This HDL assay may give artificially low results in patients with liver disease. 09/30/2024 9:07 AM EST 09/30/2024 9:07 AM EST us Generic External Data Provider LAB BLOOD ORDERAB LES Final Result Performing Organization Address City/[facility]/ZIP Co de Phone Number [facility] [address] [place] [phone] * (ABNORMAL) Comprehensive Metabolic Panel (09/30/2024 9:07 AM EST) Sodium 138 135 - 145 mmol/L [facility] Potassium 3.8 3.3 - 5.1 mmol/L [facility] Chloride 108 96 - 108 mmol/L [facility] Carbon Dioxide 26 22 - 29 mmol/L [facility] Anion Gap 8(L) 12 - 20 [facility] Urea Nitrogen (BUN) 27(H) 9 - 16 mg/dL [facility] Creatinine, Serum 0.70 0.5 - 1.4 mg/dL [facility] Estimated Glomerular Filt Rate >60 [facility] Comment:Chronic Kidney Disea se: Estimated GFR < 60 mL/min/1.76s0Nfxcnd Kidney Disease: Estimated GFR < 15 mL/min/1.73m2 Glucose 108 60 - 115 mg/dL [facility] Calcium 9.1 8.4 - 10.2 mg/dL [facility] Bilirubin, Total 0.3 0.0 - 1.0 mg/dL [facility] Aspartate Amino Transferase 22 5 - 31 U/L [facility] Alanine Aminotransferase 17 0 - 31 U/L [facility] Total Protein 8.4(H) 6.5 - 8.0 g/dL [facility] Albumin Level 4.4 3.5 - 5.0 g/dL [facility] Alkaline Phosphatase 74 39 - 117 U/L [facility] 09/30/2024 9:07 AM EST 09/30/2024 9:07 AM EST us Generic External Data Provider LAB BLOOD ORDERAB LES Final Result [facility] [address] [place] [phone] [phone] * HCG, Qualitative, Urine (08/13/2024 9:10 AM EST) Urine NEGATIVE NEGATIVE [facility] Comment:This test was develo ped to detect early . Falsenegative results may occur after the 5th - 7th week ofpregnancy when using this test method. If clinicallyindicated, consider a serum hCG. 08/13/2024 9:10 AM EST 08/13/2024 9:17 AM EST us Generic External Data Provider LAB URINE ORDERAB LES Final Result Performing Organization Address City/State/[facility] Co de Phone Number [facility] [address] [facility] [place] [phone] * CT Abdomen Pelvis w/o Contrast (08/05/2024 8:02 AM EST) Anatomical Region Laterality Modality Body, Pelvis, Abdomen Computed T omography 08/05/2024 8:02 AM EST Narrative 09/16/2024 1:12 PM EST ? [facility] ?[address] ?[place] [address] ? CT Scan Report ? Signed ? Patient: Sarah Sheikh I ?MR#: [id number] ?? [id number] ? : 1985 ?Acct:[id number] ? Age/Sex: 39 / F ?ADM Date: 08/05/24 ? Loc: HO.CT ? Attending Dr: Osbaldo Herron MD ? Ordering Physician: Osbaldo Herron MD ?? Date of Service: 08/05/24 ?? Procedure(s): CT abdomen pelvis wo IV con ?? Accession Number(s): [id number] ? cc: Sarah Bradley MD; Osbaldo Herron MD ? Report Number: ?? [id number]: Total DLP = ??870.00 mGy-cm ?? EXAMINATION: [...] DD/ 08 ? TD/TT: 08/05/24 0806 ? Vitamin Manager: ? Procedure Note Donotuseinterpreter, Image - 09/16/[address] [address] [address] Scan Report Signed Patient: Sarah Sheikh IMR#: [id number] : 1985Acct:[id number] Age/Sex: 39 / FADM Date: 08/05/24 Loc: HO.CT Attending Dr: Osbaldo Herron MD Ordering Physician: Osbaldo Herron MD Date of Service: 08/05/24 Procedure(s): CT abdomen pelvis wo IV con Accession Number(s): [id number] cc: Sarah Bradley MD; Osbaldo Herron MD Report Number: [id number]: Total DLP = 870.00 mGy-cm EXAMINATION: CT [...] by: Sky Villalobos MD 09/16/2024 01:09 PM [facility] Dictated By: Sky Stinson MD Signed By: <Electronically signed by Sky Chahal MDin OV> 09/16/24 1309 DD/ 0802 TD/TT: 08/05/24 0806 Vitamin Manager: [facility] External Provider IMG CT PROCEDURES Edited Result - Final * Hm Pap Smear (02/21/2023) Historical Provider HEALTH MAINTENANCE Final Result * HPV E6/E7 RFLX CLAIRE 16 18/45 (12/08/2021 10:43 AM EDT) HPV mRNA E6/E7 rflx Not Detected Not Detected [facility] [facility] Comment: Methodology: Feltmaker And Weigher-Mediated Amplification This assay detects E6/E7 viral messenger RNA (mRNA) from 14 high-risk HPV types (16,18,31,33,35,39,45,51,52,56,58,59,66,68). The analytical performance characteristics of this assay have been determined by [employer]. The modifications have not been cleared or approved by the FDA. This assay has been validated pursuant to the CLIA regulations and is used for clinical purposes. For additional information, please refer to http://education.[employer]/faq/WMX702p3 (This link if provided for information/ educational purposes only.) THIS TEST WAS PERFORMED AT: [facility] [address] [place] [address],[address] [place], [place] ??[address] KLAUS BRASHER MD 12/08/2021 10:4 3 AM EDT Laine Zamora HISTORICAL/NON ORDERABLE LABS Fi nal Result Performing Organization Address [facility] Phone Number [facility] Critical [place] [address], * HEPATITIS C ANTIBODY (11/16/2019 10:03 AM EDT) Pathologist [facility] HEPATITIS C ANTIBODY NONREACTIVE NONREACTIVE [facility] Comment: Antibodies to HCV not detected; does not exclude early acute HCV infection. 11/16/2019 10:0 3 AM EDT Laine Zamora HISTORICAL/NON ORDERABLE LABS Fi nal Result Performing Organization Address [facility] [place] [address], * HIV AB/AG (11/16/2019 10:03 AM EDT) [...] detection of this assay. ?? The Urena Strain Technician HIV Ag/Ab Combo assay result and supplemental assay results should be interpreted in conjunction with the patient's clinical presentation, history and other laboratory results. ??If the results are inconsistent with clinical evidence, additional testing is suggested to confirm the result. 11/16/2019 10:0 3 AM EDT us Laine Sera HISTORICAL/NON ORDERABLE LABS Fi nal Result [facility] [address] [place] [address], from Last 3 Months or Most Recently Relevant to Health Maintenance Insurance * Guarantor: AguilarSarah Brian Account Type Relation to Patient Date of Phone Billing Address Personal/Family Self [address] [place] [address] [facility] C3 [facility] MEDICAID STAND ADULT * Guarantor: Sarah Sheikh I Account Type Relation to Patient Date of Phone Billing Address Personal/Family Self [address] [place] [address] * Guarantor: Sarah Sheikh I Account Type Relation to Patient Date of Phone Billing Address Personal/Family Self [address] [place] [address] Care Teams Faucets Assembler Relationship Specialty Start Date End Date Sarah Bradley MD [address] [place] [address] PCP - General Family Medicine 06/22/18 Aisha Savage Sisal OperatorNut Roaster 04/11/24
== END 2024-10-18 09:23 | disposition home or self-care (01) ==
LOC: HO.US 09:22
PROVIDERS: PCP Internal Medicine; Visit Provider Surgery
DX: E66.9 Obesity, unspecified (principal); Z68.37 Body mass index [BMI] 37.0-37.9, adult; I10 Essential (primary) hypertension; E11.9 Type 2 diabetes mellitus without complications
CPT/HCPCS: 76700; 76981

== ENCOUNTER → 2024-10-18 09:24 | Outpatient (BNV) | payer MEDICAID, SELFPAY | PROVIDERS: PCP Internal Medicine; Visit Provider Radiology Diagnostic Radiology | DX: E66.9 Obesity, unspecified (principal) | CPT/HCPCS: 76700 ==

== ENCOUNTER 2024-10-18 09:59 | Outpatient (REF) | payer OTHER, SELFPAY ==
--- OUTSIDE RECORDS SUMMARY | 2024-10-18 10:36 | XMS_ITS | Encounter Summary ---
Author Organization [employer] Address [address] [facility] [place] [address] Care Team Providers Care Kiln Car Repairer Name Role Phone Sarah Bradley MD Primary Care Provide r Encounter Details Date Type Department Care Team ([facility] st Contact Info) Description 07/26/2024 Telephone [facility] MEDICINE [address] [place], [place] [phone] Sarah Bradley MD [address] [place], [place] [phone] Social History Tobacco Use Types Packs/Day Years [...] 10:30 AM EDT Office Visit [facility] OPTOMETRY [address] [place] [address] Nehemias, Katy, OD [address] [place] [address] documented as of this encounter Visit Diagnoses Not on filedocumented in this encounter Additional Health Concerns Assessment Noted Time PHQ-9 Depression Total Score: 0 02/19/20 24 1:15 PM EDT documented as of this encounter Care Teams Kiln Car Repairer Relationship Specialty Start Date End Date Sarah Bradley MD [address] [place], [place] [phone] PCP - General Family Medicine 06/22/18 Aisha Savage Lap PolisherHealth Information Internship 04/11/24 documented as of this encounter
--- OUTSIDE RECORDS SUMMARY | 2024-10-18 10:36 | XMS_ITS | Encounter Summary ---
Author Organization [employer] Address [address] [place] [address] Care Team Providers Care Junior Art Director Name Role Phone Sarah Bradley MD Primary Care Provide r Reason for Visit * Reason Onset Date Comments PT1 03/22/2024 Encounter Details Date Type Department Care Team ([facility] Contact Info) Description 03/22/2024 Telephone [facility] MEDICINE [address] [place], [place] [phone] Sarah Bradley MD [address] [place] [address] PT1 Social History Tobacco Use Types Packs/Day [...] Y/N: Yes Provider name or facility name: [facility] Facility Address: [address] [place] [address] Escort needed: Y/N: No Do you have a wheelchair: Y/N: No If yes- Manual or electric: n/a Visits; all future visits documented in this encounter Plan of Treatment Upcoming Encounters Date Type Department Care Team (Late st Contact Info) Description 01/29/2025 10:30 AM EDT Office Visit [facility] OPTOMETRY [address] [place] [address] Katy Del Cid, OD [address] [place] [address] documented as of this encounter Visit Diagnoses Not on filedocumented in this encounter Additional Health Concerns Assessment Noted Time PHQ-9 Depression Total Score: 0 02/19/20 24 1:15 PM EDT documented as of this encounter Care Teams Junior Art Director Relationship Specialty Start Date End Date Sarah Bradley MD [address] [place] [phone] PCP - General Family Medicine 06/22/18 Aisha Savage Racebook WriterCnc Wood Lathe Operator 04/11/24 documented as of this encounter
--- OUTSIDE RECORDS SUMMARY | 2024-10-18 10:36 | XMS_ITS | Clinical Summary ---
Author Organization [employer] Address [address] [place] [address] Care Team Providers Care Commissioned Sales Associate Name Role Phone Sarah Bradley MD Primary Care Provide r Allergies Active Allergy Reactions Criticality Noted Date Comments Latex 09/01/2022 Medications Alcohol Swabs ([facility] Prep) 70 % pads PLEASE USE DIRECTED FOR FOUR TIMES DAILY BLOOD GLUCOSE MONITORING IN 2 Active Aspirin Low Dose 81 MG EC tablet TAKE 2 TABLETS BY MOUTH EVERY DAY 2 Active Blood Glucose Monitoring Suppl (FreeStyle [place] Lite) w/Device kit TEST 4 TIMES A [...] to 37.9 in adult (CMS/[facility]ER[facility]) Take 1 capsule (15 mg) by mouth [...] DEPARTMENT Provider, Generic External Data 08/12/2024 Refill [facility] [address] [place] [address] Sarah Bradley MD Acquired hypothyroidism; Impaired glucose tolerance test; Primary hypertension 08/05/2024 Orders Only [facility] External Provider, [facility] 07/26/2024 Telephone [facility] [address] [place] [address] Sarah Bradley MD from Last [...] Description 01/29/2025 10:30 AM EDT Office Visit [facility] [address] [place] [address] Nehemias, Katy, OD [address] [place] [address] Health Maintenance Due Date Last Done Comments [...] EST Narrative 09/30/2024 10:16 AM EST ? [facility] ?[address] ?[place] [address] ?XRay Report ? Signed ? Patient: Saarh Sheikh I ?MR#: [id number] ?? [id number] ? : 1985 ?Acct:[id number] ? Age/Sex: 39 / F ?ADM Date: 09/30/24 ? Loc: HO.XRAY ? Attending Dr: Parmjit Caraballo MD ? Ordering Physician: Parmjit Caraballo MD ?? Date of Service: 09/30/24 ?? Procedure(s): XR chest 2V ?? Accession Number(s): [id number] ? cc: Sarah Bradley MD; Parmjit Caraballo [...] DD/ 0909 ? TD/TT: 09/30/24 0919 ? Account Support Associate: YOHANA ? Procedure Note Donotuseinterpreter, Image - 09/30/[address] [address] XRay Report Signed Patient: Sarah Sheikh IMR#: [id number] : 1985Acct:[id number] Age/Sex: 39 / FADM Date: 09/30/24 Loc: K[facility] Attending Dr: Parmjit Caraballo MD Ordering Physician: Parmjit Caraballo MD Date of Service: 09/30/24 Procedure(s): XR chest 2V Accession Number(s): [id number] cc: Sarah Bradley MD; Parmjit Caraballo MD [...] OV> 09/30/24 1013 DD/ 0909 TD/TT: 09/30/24918 Account Support Associate: YOHANA [facility] External Provider IMG XR PROCEDURES Edited Result - Final * (ABNORMAL) Vitamin D, 25-Hydroxy, Total, Immunoassay (09/30/2024 9:07 AM EST) Vitamin D 25-OH Total 22.6(L) >30 ng/mL [facility] Comment:Health Based Referen ce Values*< 20 ng/mL Mykefshyg51-87 ng/mL Insufficient> 30 ng/mL Sufficient*Red ODONNELL. N [...] ORDERAB LES Final Result Performing Organization Address [facility]/ZIP Co de Phone Number [facility] [address] [place] [phone] * Vitamin B12 (Cobalamin) and Folate Panel, Serum (09/30/2024 9:07 AM EST) Vitamin B12 508 200 - 900 pg/mL [facility] Comment:NORMAL 200-900 PG/ML INDETERMINATE 160-199 PG/ML DEFICIENT < 160 PG/ML Folate 13.1 > or = 4.0 ng/mL [facility] Comment:Reference Values:> o r = 4.0 ng/mL< 4.0 ng/mL suggests folate deficiency Methotrexate, aminopterin and folinic acid(leucovorin) are chemotherapeutic agents whose molecularstructures are similar to folate; therefore, the Architectfolate assay cannot be used for patients using these drugs. 09/30/2024 9:07 AM EST 09/30/2024 9:07 AM EST us Generic External Data Provider LAB BLOOD ORDERAB LES Final Result Performing Organization Address City/[facility]/ZIP Co de Phone Number [facility] [address] [place] [address] [place] [phone] * TSH with Reflex to Free T4 (09/30/2024 9:07 AM EST) TSH reflex Free T4 1.27 0.32 - 4.0 uIU/mL [facility] 09/30/2024 9:07 AM EST 09/30/2024 9:07 AM EST us Generic External Data Provider LAB BLOOD ORDERAB LES Final Result [facility] [address] [place] [phone] [phone] * (ABNORMAL) CBC auto differential (09/30/2024 9:07 AM EST) Pathologist [facility] White Blood Count 6.8 4.8 - 10.8 X10*3/uL [facility] Red Blood Count 4.57 4.20 - 5.50 X10*6/uL [facility] Hemoglobin 11.5(L) 12.0 - 16.0 g/dl [facility] Hematocrit 37.5 37.0 - 47.0 % [facility] Mean Corpuscular Volume 82.1 80.0 - 98.0 fL [facility] Mean Corpuscular Hemoglobin 25.2(L) 27.0 - 33.0 pg [facility] Mean Corpuscular HGB Conc 30.7(L) 31.0 - 35.0 g/dl [facility] Red Cell Distribution Width 15.2 11.0 - 16.0 % [facility] Platelet Count 286 160 - 400 X10*3/uL [facility] Mean Platelet Volume 11.0 9.4 - 12.3 fL [facility] Neutrophils Percent Auto 70.2 45 - 73 % [facility] Imm Gran Pct Auto 0.4 0.0 - 0.4 % [facility] Lymphocytes Percent Auto 20.6 20 - 40 % [facility] Monocytes Percent Auto 6.1 2 - 11 % [facility] Eosinophils Percent Auto 2.3 0 - 4 % [facility] Basophils Percent Auto 0.4 0 - 2 % [facility] NRBC Pct Auto 0.0 0.0 - 0.2 /100WBC [facility] Neutrophils Absolute Auto 4.8 2.0 - 8.3 x10*3/uL [facility] Imm Gran Abs Auto 0.03 0.00 - 0.03 X10*3/uL [facility] Lymphocytes Absolute Auto 1.4 1.2 - 4.9 X10*3/uL [facility] Monocytes Absolute Auto 0.4 0.1 - 1.2 X10*3/uL [facility] Eosinophils Absolute Auto 0.2 0.0 - 0.4 X10*3/uL [facility] Basophils Absolute Auto 0.0 0.0 - 0.2 X10*3/uL [facility] NRBC Abs Auto 0.000 0.0 - 0.012 X10*3/uL [facility] 09/30/2024 9:07 AM EST 09/30/2024 9:07 AM EST us Generic External Data Provider LAB BLOOD ORDERAB LES Final Result Performing Organization Address [facility] de Phone Number [facility] [address] [place] [phone] * (ABNORMAL) Iron And Total Iron Binding Capacity (09/30/2024 9:07 AM EST) Iron 33 30 - 160 mcg/dL [facility] Total Iron Binding Capacity 396 228 - 428 mcg/dL [facility] Percent Iron Saturation 8(L) 15 - 50 % [facility] Unsaturated Iron Binding 363 ug/dL [facility] 09/30/2024 9:07 AM EST 09/30/2024 9:07 AM EST us Generic External Data Provider LAB BLOOD ORDERAB LES Final Result Performing Organization Address [facility] Co de Phone Number [facility] [address] [place] [address] [phone] * Insulin (09/30/2024 9:07 AM EST) Insulin 18 2 - 29 uU/mL [facility] Comment:This test was perfor med using [...] ORDERAB LES Final Result Performing Organization Address City/[facility]/ZIP Co de Phone Number [facility] [address] [place] [phone] * Zinc (09/30/2024 9:07 AM EST) Zinc 71 60 - 130 mcg/dL [facility] Comment:This test was develo ped and its analytical performancecharacteristics have been determined by [employer] [place], [place]. It hasnot been cleared or approved by the U.S. Food and DrugAdministration. This assay has been validated pursuantto the CLIA regulations and is used for clinicalpurposes.THIS TEST WAS PERFORMED AT:[facility] [place] [address]IKBCLRNMEERA RAYMOND MD,PHD 09/30/2024 9:07 AM EST 09/30/2024 9:07 AM EST us Generic External Data Provider LAB BLOOD ORDERAB LES Final Result Performing Organization Address City/[facility]/ZIP Co de Phone Number [facility] [address] [place] [phone] * (ABNORMAL) Vitamin A (09/30/2024 9:07 AM EST) Vitamin A (Retinol) 36(A) 38 - 98 mcg/dL [facility] Comment:Vitamin supplementat ion within 24 hours prior toblood draw may affect the accuracy of the results.This test was developed and its analytical performancecharacteristics have been determined by [employer] [place], [place]. It hasnot been cleared or approved by the U.S. Food and DrugAdministration. This assay has been validated pursuantto the CLIA regulations and is used for clinicalpurposes.THIS TEST WAS PERFORMED AT:[facility] [place] [address]OMLXIRZMEERA RAYMOND MD,PHD 09/30/2024 9:07 AM EST 09/30/2024 9:07 AM EST Generic External Data Provider LAB BLOOD ORDERAB LES Final Result Performing Organization Address [facility]/ZIP Co de Phone Number [facility] [address] [place] [phone] * C-reactive Protein (09/30/2024 9:07 AM EST) [facility] Reactive Protein 0.47 < or = 0.50 mg/dL [facility] 09/30/2024 9:07 AM EST 09/30/2024 9:07 AM EST Generic External Data Provider LAB BLOOD ORDERAB LES Final Result Performing Organization Address [facility] Co de Phone Number [facility] [address] [place] [phone] * Vitamin B1 (09/30/2024 9:07 AM EST) Vitamin B1 12 8 - 30 nmol/L [facility] Comment:Vitamin supplementat ion within 24 hours prior toblood draw may affect the accuracy of the results.This test was developed and its analytical performancecharacteristics have been determined by [employer] [place]. It hasnot been cleared or approved by the U.S. Food and DrugAdministration. This assay has been validated pursuantto the CLIA regulations and is used for clinicalpurposes.THIS TEST WAS PERFORMED AT:[facility] [place] [address]SPXENVWMEERA RAYMOND MD,PHD 09/30/2024 9:07 AM EST 09/30/2024 9:07 AM EST us Generic External Data Provider LAB BLOOD ORDERAB LES Final Result Performing Organization Address [facility] Co de Phone Number [facility] [address] [place] [phone] * Hemoglobin A1c (09/30/2024 9:07 AM EST) Hemoglobin A1c 5.9 <6.0 % [facility] Comment:Hemoglobin A1C Refer ence Range Adults: 4.8 - 6.0 % Non diabetic: < 6.0 % Goal: < 7.0 %Additional Action Suggested: > 8.0 %Note: Hemoglobin A1c results are invalid for patients with abnormal amounts of HbF. Blood transfusions may impact the HbA1c concentration in the patient sample. Estimated Average Glucose 123 mg/dL [facility] Comment:eAG = Estimated ave rage glucose which is %A1C expressed asaverage glucose, using the formula of the L0V-KqbmpoxLtqmmjv Glucose study (ADAG), Diabetes Care, Vol.31,#8,Aug. 2007 09/30/2024 9:07 AM EST 09/30/2024 9:07 AM EST us Generic External Data Provider LAB BLOOD ORDERAB LES Final Result Performing Organization Address [facility] Co de Phone Number [facility] [address] [place] [phone] * Ferritin (09/30/2024 9:07 AM EST) Ferritin 10 10 - 122 ng/mL [facility] 09/30/2024 9:07 AM EST 09/30/2024 9:07 AM EST Generic External Data Provider LAB BLOOD ORDERAB LES Final Result Performing Organization Address [facility]/ZIP Co de Phone Number [facility] [address] [place] [phone] * (ABNORMAL) Lipid Panel, Standard (09/30/2024 9:07 AM EST) Triglycerides 150(H) <150 mg/dL [facility] Comment:Desirable Triglyceri de: less than 150 mg/dLBorderline High Triglyceride 150-199 mg/dLHigh Triglyceride: 200-499 mg/dLVery High Triglyceride: greater than or equal to 5OO mg/dL Cholesterol 170 <200 mg/dL [facility] Comment:Desirable Cholestero l: less than 200 mg/dLBorderline High Cholesterol: 200-239 mg/dLHigh Cholesterol: greater than 239 mg/dL LDL Cholesterol Calculated 101(H) <100 mg/dL [facility] Comment:Desirable LDL: less than 100 mg/dLNear Optimal/Above Optimal LDL: 110- 129 mg/dLBorderline High LDL: 130-159 mg/dLHigh LDL: 160-189 mg/dLVery High LDL: greater than or equal to 190 mg/dL HDL Cholesterol 39(L) >40 mg/dL [facility] Comment:Desirable HDL: great er than 40 mg/dL Note: This HDL assay may give artificially low results in patients with liver disease. 09/30/2024 9:07 AM EST 09/30/2024 9:07 AM EST us Generic External Data Provider LAB BLOOD ORDERAB LES Final Result Performing Organization Address City/[facility]/ZIP Co de Phone Number [facility] [address] [place] [phone] * (ABNORMAL) Comprehensive Metabolic Panel (09/30/2024 9:07 AM EST) Sodium 138 135 - 145 mmol/L [facility] Potassium 3.8 3.3 - 5.1 mmol/L [facility] Chloride 108 96 - 108 mmol/L [facility] Carbon Dioxide 26 22 - 29 mmol/L [facility] Anion Gap 8(L) 12 - 20 [facility] Urea Nitrogen (BUN) 27(H) 9 - 16 mg/dL [facility] Creatinine, Serum 0.70 0.5 - 1.4 mg/dL [facility] Estimated Glomerular Filt Rate >60 [facility] Comment:Chronic Kidney Disea se: Estimated GFR < 60 mL/min/1.51p3Wbcbxh Kidney Disease: Estimated GFR < 15 mL/min/1.73m2 Glucose 108 60 - 115 mg/dL [facility] Calcium 9.1 8.4 - 10.2 mg/dL [facility] Bilirubin, Total 0.3 0.0 - 1.0 mg/dL [facility] Aspartate Amino Transferase 22 5 - 31 U/L [facility] Alanine Aminotransferase 17 0 - 31 U/L [facility] Total Protein 8.4(H) 6.5 - 8.0 g/dL [facility] Albumin Level 4.4 3.5 - 5.0 g/dL [facility] Alkaline Phosphatase 74 39 - 117 U/L [facility] 09/30/2024 9:07 AM EST 09/30/2024 9:07 AM EST us Generic External Data Provider LAB BLOOD ORDERAB LES Final Result [facility] [address] [place] [phone] * HCG, Qualitative, Urine (08/13/2024 9:10 AM EST) Urine NEGATIVE NEGATIVE [facility] Comment:This test was develo ped to detect early . Falsenegative results may occur after the 5th - 7th week ofpregnancy when using this test method. If clinicallyindicated, consider a serum hCG. 08/13/2024 9:10 AM EST 08/13/2024 9:17 AM EST us Generic External Data Provider LAB URINE ORDERAB LES Final Result Performing Organization Address City/State/[facility] Co de Phone Number [facility] [address] [place] [phone] * CT Abdomen Pelvis w/o Contrast (08/05/2024 8:02 AM EST) Anatomical Region Laterality Modality Body, Pelvis, Abdomen Computed T omography 08/05/2024 8:02 AM EST Narrative 09/16/2024 1:12 PM EST ? [facility] ?[address] ?[place] [address] ? CT Scan Report ? Signed ? Patient: Sarah Sheikh I ?MR#: [id number] ?? [id number] ? : 1985 ?Acct:[id number] ? Age/Sex: 39 / F ?ADM Date: 08/05/24 ? Loc: HO.CT ? Attending Dr: Osbaldo Herron MD ? Ordering Physician: Osbaldo Herron MD ?? Date of Service: 08/05/24 ?? Procedure(s): CT abdomen pelvis wo IV con ?? Accession Number(s): [id number] ? cc: Sarah Bradley MD; Osbaldo Herron MD ? Report Number: ?? [id number]: Total DLP = ??870.00 mGy-cm ?? EXAMINATION: [...] DD/ 08 ? TD/TT: 08/05/24 0806 ? Account Support Associate: ? Procedure Note Donotuseinterpreter, Image - 09/16/[address] [address] [address] Scan Report Signed Patient: Sarah Sheikh IMR#: [id number] : 1985Acct:[id number] Age/Sex: 39 / FADM Date: 08/05/24 Loc: HO.CT Attending Dr: Osbaldo Herron MD Ordering Physician: Osbaldo Herron MD Date of Service: 08/05/24 Procedure(s): CT abdomen pelvis wo IV con Accession Number(s): [id number] cc: Sarah Bradley MD; Osbaldo Herron MD Report Number: [id number]: Total DLP = 870.00 mGy-cm EXAMINATION: CT [...] by: Sky Villalobos MD 09/16/2024 01:09 PM [facility] Dictated By: Sky Stinson MD Signed By: <Electronically signed by Sky Chahal MDin OV> 09/16/24 1309 DD/ 0802 TD/TT: 08/05/24 0806 Account Support Associate: [facility] External Provider IMG CT PROCEDURES Edited Result - Final * Hm Pap Smear (02/21/2023) Historical Provider HEALTH MAINTENANCE Final Result * HPV E6/E7 RFLX CLAIRE 16 18/45 (12/08/2021 10:43 AM EDT) HPV mRNA E6/E7 rflx Not Detected Not Detected [employer] Comment: Methodology: Gas Booster Engineer-Mediated Amplification This assay detects E6/E7 viral messenger RNA (mRNA) from 14 high-risk HPV types (16,18,31,33,35,39,45,51,52,56,58,59,66,68). The analytical performance characteristics of this assay have been determined by [employer]. The modifications have not been cleared or approved by the FDA. This assay has been validated pursuant to the CLIA regulations and is used for clinical purposes. For additional information, please refer to http://education.[employer]/faq/ADJ779k1 (This link if provided for information/ educational purposes only.) THIS TEST WAS PERFORMED AT: [employer] [address] [place] [address],[address] [place], [place] ??[phone] KLAUS BRASHER MD 12/08/2021 10:4 3 AM EDT Laine Zamora HISTORICAL/NON ORDERABLE LABS Fi nal Result Performing Organization Address [facility] Phone Number [facility] [place] [address], * HEPATITIS C ANTIBODY (11/16/2019 10:03 AM EDT) Pathologist [facility] HEPATITIS C ANTIBODY NONREACTIVE NONREACTIVE [facility] Comment: Antibodies to HCV not detected; does not exclude early acute HCV infection. 11/16/2019 10:0 3 AM EDT Laine Zamora HISTORICAL/NON ORDERABLE LABS Fi nal Result Performing Organization Address [facility] [place] [address], * HIV AB/AG (11/16/2019 10:03 AM EDT) [...] detection of this assay. ?? [employer] Nurse Specialist HIV Ag/Ab Combo assay result and supplemental [...] [facility] [address] [place] [address], from Last 3 Months or Most Recently Relevant to Health Maintenance Insurance * Guarantor: AguilarSarah Brian Account Type Relation to Patient Date of Phone Billing Address Personal/Family Self [address] [place] [address] [facility] C3 DENTAL-[facility] MEDICAID STAND ADULT * Guarantor: Sarah Sheikh I Account Type Relation to Patient Date of Phone Billing Address Personal/Family Self [address] [place] [address] * Guarantor: Sarah Sheikh I Account Type Relation to Patient Date of Phone Billing Address Personal/Family Self [address] [place] [address] Care Teams Commissioned Sales Associate Relationship Specialty Start Date End Date Sarah Bradley MD [address] [place] [address] PCP - General Family Medicine 06/22/18 Aisha Savage High Heel BuilderCylinder Dyer 04/11/24
--- OUTSIDE RECORDS SUMMARY | 2024-10-18 10:36 | XMS_ITS | Encounter Summary ---
Author Organization [employer] Address [address] [place] [address] Care Team Providers Care Environmental Scientists Name Role Phone Sarah Bradley MD Primary Care Provide r Encounter Details Date Type Department Care Team ([facility] Contact Info) Description 01/27/2023 Abstract [facility] [address] [place] [address] Sarah Bradley MD [address] [place] [address] Social History Tobacco Use Types Packs/Day Years [...] Upcoming Encounters Date Type Department Care Team ([facility] Contact Info) Description 01/29/2025 10:30 AM EDT Office Visit [facility] [address] [place] [address] Katy Del Cid RAYO [address] [place] [address] documented as of this encounter Procedures Procedure [...] documented as of this encounter Care Teams Environmental Scientists Relationship Specialty Start Date End Date Sarah Bradley MD [address] [place] [address] PCP - General Family Medicine 06/22/18 Aisha Savage Heavy Media OperatorSheet Rock Installation Helper 04/11/24 documented as of this encounter
--- OUTSIDE RECORDS SUMMARY | 2024-10-18 10:36 | XMS_ITS | Encounter Summary ---
Author Organization [facility] Address [address] [place] [address] Care Team Providers Care Laboratory Animal Caretaker Name Role Phone Sarah Bradley MD Primary Care Provide r Encounter Details Date Type Department Care Team (Latest Contact Info) Description 12/15/2020 Abstract [facility] CONVERSIONS Dental, Provider, DDS Social History Tobacco [...] Description 01/29/2025 10:30 AM EDT Office Visit [facility] OPTOMETRY [address] [place] [address] Nehemias, Katy, OD [address] [place] [address] documented as of this encounter Visit Diagnoses Not on filedocumented in this encounter Care Teams Laboratory Animal Caretaker Relationship Specialty Start Date End Date Sarah Bradley MD [address] [place] [address] PCP - General Family Medicine 06/22/[address] Court Reporter 04/11/24 documented as of this encounter
--- OUTSIDE RECORDS SUMMARY | 2024-10-18 10:36 | XMS_ITS | Encounter Summary ---
Author Organization [employer] Address [address] 7t [place] [address] Care Team Providers Care Transactional Paralegal Name Role Phone Sarah Bradley MD Primary [...] Office Visit [facility] OPTOMETRY [address] [place], [place] [phone] Nehemias, Katy, OD [address] [place] [address] documented as of this encounter Procedures Procedure [...] EST Narrative 09/30/2024 10:16 AM EST ? [facility] ?[address] ?[place] [address] ?XRay Report ? Signed ? Patient: Sarah Sheikh Brian ?MR#: [id number] ?? [id number] ? : 1985 ?Acct:[id number] ? Age/Sex: 39 / F ?ADM Date: 09/30/24 ? Loc: HO.XRAY ? Attending Dr: Parmjit Caraballo MD ? Ordering Physician: Parmjit Caraballo MD ?? Date of Service: 09/30/24 ?? Procedure(s): XR chest 2V ?? Accession Number(s): [id number] ? cc: Sarah Bradley MD; Parmjit Caraballo [...] DD/ 0909 ? TD/TT: 09/30/24 0919 ? Legal Service Specialist: YOHANA ? Procedure Note Donotuseinterpreter, Image - 09/30/[address] [address] XRay Report Signed Patient: Sarah Sheikh IMR#: [id number] : 1985Acct:[id number] Age/Sex: 39 / FADM Date: 09/30/24 Loc: HO.XRAY Attending Dr: Parmjit Caraballo MD Ordering Physician: Parmjit Caraballo MD Date of Service: 09/30/24 Procedure(s): XR chest 2V Accession Number(s): [id number] cc: Sarah Bradley MD; Parmjit Caraballo MD [...] OV> 09/30/24 1013 DD/ 0909 TD/TT: 09/30/24918 Legal Service Specialist: [facility] External Provider IMG XR PROCEDURES Edited Result - Final * Vitamin B1 (09/30/2024 9:07 AM EST) Vitamin B1 12 8 - 30 nmol/L [facility] Comment:Vitamin supplementat ion within 24 hours prior toblood draw may affect the accuracy of the results.This test was developed and its analytical performancecharacteristics have been determined by [facility] [place], [place]. It hasnot been cleared or approved by the U.S. Food and DrugAdministration. This assay has been validated pursuantto the CLIA regulations and is used for clinicalpurposes.THIS TEST WAS PERFORMED AT:[employer] [id number] [place] [id number] RAYMOND MD,PHD 09/30/2024 9:07 AM EST 09/30/2024 9:07 AM EST Generic External Data Provider LAB BLOOD ORDERAB LES Final Result Performing Organization Address [facility] de Phone Number [facility] [address] [place] [phone] * (ABNORMAL) Vitamin A (09/30/2024 9:07 AM EST) Vitamin A (Retinol) 36(A) 38 - 98 mcg/dL [facility] Comment:Vitamin supplementat ion within 24 hours prior toblood draw may affect the accuracy of the results.This test was developed and its analytical performancecharacteristics have been determined by [facility] [place], [place]. It hasnot been cleared or approved by the U.S. Food and DrugAdministration. This assay has been validated pursuantto the CLIA regulations and is used for clinicalpurposes.THIS TEST WAS PERFORMED AT:[employer] [id number] [place] [id number] RAYMOND MD,PHD 09/30/2024 9:07 AM EST 09/30/2024 9:07 AM EST Generic External Data Provider LAB BLOOD ORDERAB LES Final Result Performing Organization Address [facility] Co de Phone Number [facility] [address] [place] [phone] * Zinc (09/30/2024 9:07 AM EST) Zinc 71 60 - 130 mcg/dL [facility] Comment:This test was develo ped and its analytical performancecharacteristics have been determined by [facility] [place], [place]. It hasnot been cleared or approved by the U.S. Food and DrugAdministration. This assay has been validated pursuantto the CLIA regulations and is used for clinicalpurposes.THIS TEST WAS PERFORMED AT:[id number] [place] [address]CJISPYVMEERA RAYMOND MD,PHD 09/30/2024 9:07 AM EST 09/30/2024 9:07 AM EST Generic External Data Provider LAB BLOOD ORDERAB LES Final Result Performing Organization Address [facility] Co de Phone Number [facility] [address] [place] [phone] [phone] * Insulin (09/30/2024 9:07 AM EST) Pathologist [facility] Insulin 18 2 - 29 uU/mL [facility] Comment:This test was perfor med [...] ORDERAB LES Final Result Performing Organization Address [facility] Co de Phone Number [facility] [address] [place] [phone] * TSH with Reflex to Free T4 (09/30/2024 9:07 AM EST) Pathologist [facility] TSH reflex Free T4 1.27 0.32 - 4.0 uIU/mL [facility] 09/30/2024 9:07 AM EST 09/30/2024 9:07 AM EST Generic External Data Provider LAB BLOOD ORDERAB LES Final Result [facility] [address] [place] [phone] [phone] * (ABNORMAL) Vitamin D, 25-Hydroxy, Total, Immunoassay (09/30/2024 9:07 AM EST) Vitamin D 25-OH Total 22.6(L) >30 ng/mL [facility] Comment:Health Based Referen ce Values*< 20 ng/mL Uutfbtsap45-92 ng/mL Insufficient> 30 ng/mL Sufficient*Red ODONNELL. N [...] Provider LAB BLOOD ORDERAB LES Final Result [facility] [address] [place] [phone] [phone] * Ferritin (09/30/2024 9:07 AM EST) Ferritin 10 10 - 122 ng/mL [facility] 09/30/2024 9:07 AM EST 09/30/2024 9:07 AM EST Generic External Data Provider LAB BLOOD ORDERAB LES Final Result Performing Organization Address City/[facility]/ZIP Co de Phone Number [facility] [address] [place] [phone] * Vitamin B12 (Cobalamin) and Folate Panel, Serum (09/30/2024 9:07 AM EST) Vitamin B12 508 200 - 900 pg/mL [facility] Comment:NORMAL 200-900 PG/ML INDETERMINATE 160-199 PG/ML DEFICIENT < 160 PG/ML Folate 13.1 > or = 4.0 ng/mL [facility] Comment:Reference Values:> o r = 4.0 ng/mL< 4.0 ng/mL suggests folate deficiency Methotrexate, aminopterin and folinic acid(leucovorin) are chemotherapeutic agents whose molecularstructures are similar to folate; therefore, the Architectfolate assay cannot be used for patients using these drugs. 09/30/2024 9:07 AM EST 09/30/2024 9:07 AM EST [employer] External Data Provider LAB BLOOD ORDERAB LES Final Result Performing Organization Address [facility] Co de Phone Number [facility] [address] [place] [phone] * (ABNORMAL) Lipid Panel, Standard (09/30/2024 9:07 AM EST) Triglycerides 150(H) <150 mg/dL [facility] Comment:Desirable Triglyceri de: less than 150 mg/dLBorderline High Triglyceride 150-199 mg/dLHigh Triglyceride: 200-499 mg/dLVery High Triglyceride: greater than or equal to 5OO mg/dL Cholesterol 170 <200 mg/dL [facility] Comment:Desirable Cholestero l: less than 200 mg/dLBorderline High Cholesterol: 200-239 mg/dLHigh Cholesterol: greater than 239 mg/dL LDL Cholesterol Calculated 101(H) <100 mg/dL [facility] Comment:Desirable LDL: less than 100 mg/dLNear Optimal/Above Optimal LDL: 110- 129 mg/dLBorderline High LDL: 130-159 mg/dLHigh LDL: 160-189 mg/dLVery High LDL: greater than or equal to 190 mg/dL HDL Cholesterol 39(L) >40 mg/dL [facility] Comment:Desirable HDL: great er than 40 mg/dL Note: This HDL assay may give artificially low results in patients with liver disease. 09/30/2024 9:07 AM EST 09/30/2024 9:07 AM EST us Generic External Data Provider LAB BLOOD ORDERAB LES Final Result Performing Organization Address [facility] Co de Phone Number [facility] [address] [place] [phone] * C-reactive Protein (09/30/2024 9:07 AM EST) C Reactive Protein 0.47 < or = 0.50 mg/dL [facility] 09/30/2024 9:07 AM EST 09/30/2024 9:07 AM EST Generic External Data Provider LAB BLOOD ORDERAB LES Final Result Performing Organization Address [facility] Phone Number [facility] [address] [place] [phone] * (ABNORMAL) Iron And Total Iron Binding Capacity (09/30/2024 9:07 AM EST) Iron 33 30 - 160 mcg/dL [facility] Total Iron Binding Capacity 396 228 - 428 mcg/dL [facility] Percent Iron Saturation 8(L) 15 - 50 % [facility] Unsaturated Iron Binding 363 ug/dL [facility] 09/30/2024 9:07 AM EST 09/30/2024 9:07 AM EST Generic External Data Provider LAB BLOOD ORDERAB LES Final Result Performing Organization Address [facility] Co de Phone Number [facility] [address] [place] [phone] * (ABNORMAL) Comprehensive Metabolic Panel (09/30/2024 9:07 AM EST) Sodium 138 135 - 145 mmol/L [facility] Potassium 3.8 3.3 - 5.1 mmol/L [facility] Chloride 108 96 - 108 mmol/L [facility] Carbon Dioxide 26 22 - 29 mmol/L [facility] Anion Gap 8(L) 12 - 20 [facility] Urea Nitrogen (BUN) 27(H) 9 - 16 mg/dL [facility] Creatinine, Serum 0.70 0.5 - 1.4 mg/dL [facility] Estimated Glomerular Filt Rate >60 [facility] Comment:Chronic Kidney Disea se: Estimated GFR < 60 mL/min/1.41n6Bpirga Kidney Disease: Estimated GFR < 15 mL/min/1.73m2 Glucose 108 60 - 115 mg/dL [facility] Calcium 9.1 8.4 - 10.2 mg/dL [facility] Bilirubin, Total 0.3 0.0 - 1.0 mg/dL [facility] Aspartate Amino Transferase 22 5 - 31 U/L [facility] Alanine Aminotransferase 17 0 - 31 U/L [facility] Total Protein 8.4(H) 6.5 - 8.0 g/dL [facility] Albumin Level 4.4 3.5 - 5.0 g/dL [facility] Alkaline Phosphatase 74 39 - 117 U/L [facility] 09/30/2024 9:07 AM EST 09/30/2024 9:07 AM EST us Generic External Data Provider LAB BLOOD ORDERAB LES Final Result [facility] [address] [place] [phone] * Hemoglobin A1c (09/30/2024 9:07 AM EST) Hemoglobin A1c 5.9 <6.0 % [facility] Comment:Hemoglobin A1C Refer ence Range Adults: 4.8 - 6.0 % Non diabetic: < 6.0 % Goal: < 7.0 %Additional Action Suggested: > 8.0 %Note: Hemoglobin A1c results are invalid for patients with abnormal amounts of HbF. Blood transfusions may impact the HbA1c concentration in the patient sample. Estimated Average Glucose 123 mg/dL [facility] Comment:eAG = Estimated ave rage glucose which is %A1C expressed asaverage glucose, using the formula of the U9G-UazadfeYxgqqju Glucose study (ADAG), Diabetes Care, Vol.31,#8,2007 09/30/2024 9:07 AM EST 09/30/2024 9:07 AM EST us Generic External Data Provider LAB BLOOD ORDERAB LES Final Result [facility] [address] [place] [address] [phone] * (ABNORMAL) CBC auto differential (09/30/2024 9:07 AM EST) White Blood Count 6.8 4.8 - 10.8 X10*3/uL [facility] Red Blood Count 4.57 4.20 - 5.50 X10*6/uL [facility] Hemoglobin 11.5(L) 12.0 - 16.0 g/dl [facility] Hematocrit 37.5 37.0 - 47.0 % [facility] Mean Corpuscular Volume 82.1 80.0 - 98.0 fL [facility] Mean Corpuscular Hemoglobin 25.2(L) 27.0 - 33.0 pg [facility] Mean Corpuscular HGB Conc 30.7(L) 31.0 - 35.0 g/dl [facility] Red Cell Distribution Width 15.2 11.0 - 16.0 % [facility] Platelet Count 286 160 - 400 X10*3/uL [facility] Mean Platelet Volume 11.0 9.4 - 12.3 fL [facility] Neutrophils Percent Auto 70.2 45 - 73 % [facility] Imm Gran Pct Auto 0.4 0.0 - 0.4 % [facility] Lymphocytes Percent Auto 20.6 20 - 40 % [facility] Monocytes Percent Auto 6.1 2 - 11 % [facility] Eosinophils Percent Auto 2.3 0 - 4 % [facility] Basophils Percent Auto 0.4 0 - 2 % [facility] NRBC Pct Auto 0.0 0.0 - 0.2 /100WBC [facility] Neutrophils Absolute Auto 4.8 2.0 - 8.3 x10*3/uL [facility] Imm Gran Abs Auto 0.03 0.00 - 0.03 X10*3/uL [facility] Lymphocytes Absolute Auto 1.4 1.2 - 4.9 X10*3/uL [facility] Monocytes Absolute Auto 0.4 0.1 - 1.2 X10*3/uL [facility] Eosinophils Absolute Auto 0.2 0.0 - 0.4 X10*3/uL [facility] Basophils Absolute Auto 0.0 0.0 - 0.2 X10*3/uL [facility] NRBC Abs Auto 0.000 0.0 - 0.012 X10*3/uL [facility] 09/30/2024 9:07 AM EST 09/30/2024 9:07 AM EST us Generic External Data Provider LAB BLOOD ORDERAB LES Final Result [facility] [address] [place] [address] [phone] documented in this encounter Visit Diagnoses Not on filedocumented in this encounter Additional Health Concerns Assessment Noted Time PHQ-9 Depression Total Score: 0 02/19/20 24 1:15 PM EDT documented as of this encounter Care Teams Transactional Paralegal Relationship Specialty Start Date End Date Sarah Bradley MD [address] [place] [phone] PCP - General Family Medicine 06/22/18 Aisha Savage Water Treatment SpecialistDimensional Integration Engineer 04/11/24 documented as of this encounter
--- OUTSIDE RECORDS SUMMARY | 2024-10-18 10:37 | XMS_ITS | Encounter Summary ---
Author Organization [employer] Address [address] [place] [address] Care Team Providers Care Hand Sander Name Role Phone Sarah Bradley MD Primary Care Provide r Encounter Details Date Type Department Care Team ([facility] Contact Info) Description 03/22/2023 Abstract [facility] MEDICINE [address] [place] [phone] Sarah Bradley MD [address] [place] [address] Social History Tobacco Use Types Packs/Day Years [...] Upcoming Encounters Date Type Department Care Team ([facility] Contact Info) Description 01/29/2025 10:30 AM EDT Office Visit [facility] OPTOMETRY [address] [place], [place] [phone] Katy Del Cid, OD [address] [place], [place] [phone] documented as of this encounter Visit Diagnoses Not on filedocumented in this encounter Additional Health Concerns Assessment Noted Time PHQ-9 Depression Total Score: 0 01/18/20 23 10:22 AM EDT documented as of this encounter Care Teams Hand Sander Relationship Specialty Start Date End Date Sarah Bradley MD [address] [place], [place] [phone] PCP - General Family Medicine 06/22/18 Aisha Savage Drilling ContractorPicking Belt Operator 04/11/24 documented as of this encounter
--- OUTSIDE RECORDS SUMMARY | 2024-10-18 10:37 | XMS_ITS | Encounter Summary ---
Author Organization [employer] Address [address] [place] [address] Care Team Providers Care Yeast Fermentation Attendant Name Role Phone Sarah Bradley MD Primary Care Provide r Encounter Details Date Type Department Care Team (Late Contact Info) Description 06/07/2023 Abstract [facility] MEDICINE [address] [place] [address] Sarah Bradley MD [address] [place], [place] [phone] Social History Tobacco Use Types Packs/Day Years [...] 10:30 AM EDT Office Visit [facility] OPTOMETRY [address] [place], [place] [phone] Katy Del Cid, OD [address] [place], [place] [phone] documented as of this encounter Procedures Procedure [...] documented as of this encounter Care Teams Yeast Fermentation Attendant Relationship Specialty Start Date End Date Sarah Bradley MD [address] [place] [address] PCP - General Family Medicine 06/22/18 Aisha Savage Germ DrierAffiliate Marketing Coordinator 04/11/24 documented as of this encounter
--- OUTSIDE RECORDS SUMMARY | 2024-10-18 10:37 | XMS_ITS | Encounter Summary ---
Author Organization [email or web address] Address [address] [place] [address] Care Team Providers Care Weatherization Technician Name Role Phone Sarah Bradley MD Primary Care Provide r Encounter Details Date Type Department Care Team ([facility] Contact Info) Description 03/22/2023 Orders Only [facility] MEDICINE [address] [place] [address] Provider, MD Yessi Social History Tobacco Use [...] Upcoming Encounters Date Type Department Care Team ([facility] Contact Info) Description 01/29/2025 10:30 AM EDT Office Visit [facility] OPTOMETRY [address] [place], [place] [phone] Katy Del Cid, OD [address] [place] [address] documented as of this encounter Procedures Procedure [...] documented as of this encounter Care Teams Weatherization Technician Relationship Specialty Start Date End Date Sarah Bradley MD [address] [place] [phone] PCP - General Family Medicine 06/22/18 Aisha Savage Referral SpecialistConstruction Plumber 04/11/24 documented as of this encounter
--- OUTSIDE RECORDS SUMMARY | 2024-10-18 10:37 | XMS_ITS | Clinical Summary ---
Author Organization [employer] [facility] ity Address [address] [place] [address] Care Team Providers Care Radiochemical Technician Name Role Phone Unavailable Primary Care Provider [...]
[2024-10-18 11:42] LABS: HCG Quantitative < 2 mIU/mL
== END 2024-10-18 10:00 | disposition home or self-care (01) ==
LOC: HO.10HDL 09:59
PROVIDERS: Visit Provider Student in an Organized Health Care Education/Training Program
DX: E66.9 Obesity, unspecified (principal)
CPT/HCPCS: 36415; 84702

== ENCOUNTER 2024-11-25 08:33 | Outpatient (REF) | payer MEDICAID, SELFPAY ==
[2024-11-25 09:31] LABS: Glucose Random 115 mg/dL (60-115)
== END 2024-11-25 08:34 | disposition home or self-care (01) ==
LOC: HO.LAB 08:33
PROVIDERS: Student in an Organized Health Care Education/Training Program; PCP Internal Medicine; Visit Provider Surgery
DX: E66.9 Obesity, unspecified (principal)
CPT/HCPCS: 36415; 82947

== ENCOUNTER → 2024-12-03 08:48 | Outpatient (BNV) | payer MEDICAID, SELFPAY | PROVIDERS: PCP Internal Medicine; Visit Provider Internal Medicine | DX: E66.9 Obesity, unspecified (principal) | CPT/HCPCS: 93010 ==

== ENCOUNTER 2024-12-03 11:34 | Day surgery (SDC) | payer MEDICAID, SELFPAY ==
--- OUTSIDE RECORDS SUMMARY | 2024-11-14 10:31 | XMS_ITS | Clinical Summary ---
Author Organization [id number] Address [address] [place] [address] Care Team Providers Care Food Service Assistant Name Role Phone Sarah Bradley MD Primary Care Provide r Allergies Active Allergy Reactions Criticality Noted Date Comments Latex 09/01/2022 Medications Alcohol Swabs ([facility] Prep) 70 % pads PLEASE USE DIRECTED FOR FOUR TIMES DAILY BLOOD GLUCOSE MONITORING IN 2 Active Aspirin Low Dose 81 MG EC tablet TAKE 2 TABLETS BY MOUTH EVERY DAY 2 Active Blood Glucose Monitoring Suppl (FreeStyle [employer] Lite) w/Device kit TEST 4 TIMES A [...] (BMI) of 37.0 to 37.9 in adult ([facility]) Take 1 capsule (15 mg) [...] EXTERNAL DATA DEPARTMENT Provider, Generic External Data from Last 3 Months Immunizations Name Administration [...] Care Team (Late st Contact Info) Description 12/31/2024 9:30 AM EDT Office Visit [facility] MEDICINE [address] [place] [address] Sarah Bradley MD [address] [place] [address] 01/29/2025 10:30 AM EDT Office Visit [facility] OPTOMETRY [address] [place] [address] Katy Del Cid, OD [address] [place] [address] Health Maintenance Due Date Last Done Comments [...] 11/27/2020, 11/0 02/2008 Dental X-Ray: Bitewings 03/03/2024 03/02/20, 02/09/2023, 11/27/2020, Additional history exists COVID-19 Vaccine ( season) 2024 08/24/2021 Influenza Vaccine (#1) 2024 , 11/12/2019, 06/22/2018, Additional history exists SDOH Screening 02/05/2025 02/06/2024 Depression Screening 02/18/2025 02/19/2024, 02/19/20 Tobacco Screening 05/21/2025 05/21/2024 Diabetes: Hemoglobin A1C 09/30/2025 025, 01/20/2023, 09/01/2020 Cervical Cancer Screening 02/21/2026 HPV/Cotest 02/21/2026 12/08/2021, 04/0 02/2022, 12/03/2020, Additional history exists Pap Smear 02/21/2026 02/21/2023, 02/03, 12/09/2021, Additional history exists Lipid Panel 09/30/2029 09/30/2024, 01/02, 09/01/2020 DTaP/Tdap/Td Vaccines (4 - Td or [...] Procedure Name Priority Date/Time Associated Diagnosis Comments US ABDOMEN COMPLETE WITH ELASTOGRAPHY Routine 10/18/2024 9:33 AM EST XR CHEST 2 VIEWS Routine 09/30/2024 9:09 [...] AUTO DIFFERENTIAL Routine 09/30/2024 9:07 AM EST BITEWINGS - 4 RADIOGRAPHIC IMAGES [...] RADIOGRAPHIC IMAGES Routine 11/27/2020 12:00 AM EDT [facility] HISTORICAL HEPATITIS C ANTIBODY Routine 11/16/2019 10:03 AM EDT RISSA HISTORICAL HIV AB/AG Routine 11/16/2019 10:03 AM EDT from Last 3 Months or Most Recently Relevant to Health Maintenance Results * US Abdomen Comp w elastography (10/18/2024 9:33 AM EST) Anatomical Region Laterality Modality Abdomen Ultrasound 10/18/2024 9:33 AM EST Narrative 10/18/2024 12:48 PM EST ? [facility] ?[address] ?[place] [address] ? Ultrasound Report ? Signed ? Patient: AguilarSarah Torres ?MR#: [id number] ?? [id number] ? : 1985 ?Acct:[id number] ? Age/Sex: 39 / F ?ADM Date: 10/18/24 ? Loc: HO.US ? Attending Dr: Parmjit Caraballo MD ? Ordering Physician: Parmjit Caraballo MD ?? Date of Service: 10/18/24 ?? Procedure(s): US abdomen comp w elastography ?? Accession Number(s): [id number] ? cc: Sarah Bradley MD; Parmjit Caraballo MD ? EXAMINATION: ??US ABDOMEN COMPLETE WITH LIVER ELASTOGRAPHY ? HISTORY: E66.9 - Obesity, unspecified ? TECHNIQUE: Real-time grayscale ultrasound imaging of the abdomen was ?? performed and images were reviewed. ? COMPARISON: Correlation is made with an unenhanced CT of the abdomen ?? dated 08/05/2024. ? FINDINGS: ?? Liver: ??The right lobe of the liver measures 20.1 cm in size. The left ?? lobe of the liver measures 13.9 cm in size. The liver demonstrates ?? increased echotexture, consistent with steatosis. ??No focal mass or ?? intrahepatic biliary ductal dilatation is identified. ??There is normal ?? hepatopedal flow in the portal vein. ? Ultrasound elastography of the liver was performed with 10 separate ?? measurements of the liver parenchyma with the patient in the supine ?? position. ??Measurements were obtained approximately 2 cm below ?? Dawson's capsule and perpendicular to the capsule. ??Images are of ?? satisfactory quality. ? The median shear wave velocity is 1.11 m/s. ?? The interquartile range/median (IQR/median) is 0.20. ? Gallbladder and biliary tree: The gallbladder is unremarkable, without ?? evidence of calculi, wall thickening, or pericholecystic fluid. ??There ?? is no sonographic Jackson sign. ??The common bile duct is normal in ?? caliber measuring 7 mm. ? Kidneys: ??The right kidney measures 11.0 cm in length. The left kidney ?? measures 10.4 cm in length. ??The kidneys are unremarkable, without ?? evidence of masses, hydronephrosis, or calculi. ? Pancreas: The pancreatic head, neck, and body are unremarkable. The ?? pancreatic tail is obscured by bowel gas. ? Spleen: The spleen is normal in size and contour, measuring 10.4 cm in ?? length. ? Abdominal aorta and inferior vena cava: The visualized portions of the ?? abdominal aorta and inferior vena cava are normal in caliber. ? There is no free fluid in the abdomen. ? US/US abdomen comp w elastography ?? IMPRESSION: ? Hepatomegaly and hepatic steatosis. ? The median shear wave velocity is 1.11 m/s, corresponding to a median ?? liver stiffness of 3.7 kPa. ??The IQR/median value is 0.20. ??This is ?? indicative of a poor quality data set, and the estimated liver ?? stiffness may be unreliable. ?? Findings are indicative of a normal elastography value with a low ?? likelihood of severe fibrosis or cirrhosis. ? REFERENCE: ?? Society of Radiologists in Ultrasound Liver Stiffness Thresholds (2020): ? LIVER STIFFNESS THRESHOLDS: ?? *Shear wave velocity less than 1.3 m/s (Liver Stiffness equal or less ?? than 5 kPa): ??High probability of being normal. ?? *Shear wave velocity less than 1.7 m/s (Liver Stiffness less than 9 ?? kPa): ??In the absence of other known clinical signs, rules out ?? compensated advanced chronic liver disease. ?? *Shear wave velocity between 1.7-2.1 m/s (Liver Stiffness 9-13 kPa): ? Suggestive of compensated advanced chronic liver disease but need ?? further test for confirmation. ?? *Shear wave velocity between 2.1-2.4 m/s (Liver Stiffness 13-17 kPa): ? Rules in compensated advanced chronic liver disease. ?? *Shear wave velocity ??greater than 2.4 m/s (Liver Stiffness over 17 ?? kPa): ??Suggestive of clinically significant portal hypertension. ? QUALITY OF DATA SET: ?? *IQR/Median value equal or less than 0.15 implies a quality data set. ?? *IQR/Median value over 0.15 implies a poor quality data set. ? SIGNIFICANT CHANGE FROM PRIOR EXAM: ?? Significant change if liver stiffness measurement is 10% or greater ?? from prior exam. ? OTHER CONSIDERATIONS: ?? The stage of liver fibrosis may be overestimated in the setting of ?? acute hepatitis, liver inflammation, elevated liver function tests, ?? hepatic vascular congestion, obstructive cholestasis, non-fasting ?? state, and infiltrative diseases such as amyloidosis and lymphoma. ??In ?? some patients with NAFLD, the liver stiffness thresholds for ?? compensated advanced chronic liver disease may be lower. ??In causes ?? other than viral hepatitis and NAFLD, liver stiffness thresholds are ?? not well established. ? Electronically signed by: ??Johnny Corado MD ??10/18/2024 12:46 PM EST ?? RP ? Dictated By: ?Johnny Corado MD ? Signed By: ?<Electronically signed by Johnny Corado MD in OV> ?10/18/24 1246 ? DD/ 0933 ? TD/TT: 10/18/24 0953 ? Clerical Transcriber: ? Procedure Note Almita Jeffries - 10/18/[address] [address] Ultrasound Report Signed Patient: Sarah Sheikh [facility]#: [id number] : 1985Acct:[id number] Age/Sex: 39 / FADM Date: 10/18/24 Loc: HO.US Attending Dr: Parmjit Caraballo MD Ordering Physician: Parmjit Caraballo MD Date of Service: 10/18/24 Procedure(s): US abdomen comp w elastography Accession Number(s): [id number] cc: Sarah Bradley MD; Parmjit Caraballo MD EXAMINATION: US ABDOMEN COMPLETE WITH LIVER ELASTOGRAPHY HISTORY: E66.9 - Obesity, unspecified TECHNIQUE: Real-time grayscale ultrasound imaging of the abdomen was performed and images were reviewed. COMPARISON: Correlation is made with an unenhanced CT of the abdomen dated 08/05/2024. FINDINGS: Liver: The right lobe of the liver measures 20.1 cm in size. The left lobe of the liver measures 13.9 cm in size. The liver demonstrates increased echotexture, consistent with steatosis. No focal mass or intrahepatic biliary ductal dilatation is identified. There is normal hepatopedal flow in the portal vein. Ultrasound elastography of the liver was performed with 10 separate measurements of the liver parenchyma with the patient in the supine position. Measurements were obtained approximately 2 cm below Dawson's capsule and perpendicular to the capsule. Images are of satisfactory quality. The median shear wave velocity is 1.11 m/s. The interquartile range/median (IQR/median) is 0.20. Gallbladder and biliary tree: The gallbladder is unremarkable, without evidence of calculi, wall thickening, or pericholecystic fluid. There is no sonographic Jackson sign. The common bile duct is normal in caliber measuring 7 mm. Kidneys: The right kidney measures 11.0 cm in length. The left kidney measures 10.4 cm in length. The kidneys are unremarkable, without evidence of masses, hydronephrosis, or calculi. Pancreas: The pancreatic head, neck, and body are unremarkable. The pancreatic tail is obscured by bowel gas. Spleen: The spleen is normal in size and contour, measuring 10.4 cm in length. Abdominal aorta and inferior vena cava: The visualized portions of the abdominal aorta and inferior vena cava are normal in caliber. There is no free fluid in the abdomen. US/US abdomen comp w elastography IMPRESSION: Hepatomegaly and hepatic steatosis. The median shear wave velocity is 1.11 m/s, corresponding to a median liver stiffness of 3.7 kPa. The IQR/median value is 0.20. This is indicative of a poor quality data set, and the estimated liver stiffness may be unreliable. Findings are indicative of a normal elastography value with a low likelihood of severe fibrosis or cirrhosis. REFERENCE: Society of Radiologists in Ultrasound Liver Stiffness Thresholds (2019): LIVER STIFFNESS THRESHOLDS: *Shear wave velocity less than 1.3 m/s (Liver Stiffness equal or less than 5 kPa): High probability of being normal. *Shear wave velocity less than 1.7 m/s (Liver Stiffness less than 9 kPa): In the absence of other known clinical signs, rules out compensated advanced chronic liver disease. *Shear wave velocity between 1.7-2.1 m/s (Liver Stiffness 9-13 kPa): Suggestive of compensated advanced chronic liver disease but need further test for confirmation. *Shear wave velocity between 2.1-2.4 m/s (Liver Stiffness 13-17 kPa): Rules in compensated advanced chronic liver disease. *Shear wave velocity greater than 2.4 m/s (Liver Stiffness over 17 kPa): Suggestive of clinically significant portal hypertension. QUALITY OF DATA SET: *IQR/Median value equal or less than 0.15 implies a quality data set. *IQR/Median value over 0.15 implies a poor quality data set. SIGNIFICANT CHANGE FROM PRIOR EXAM: Significant change if liver stiffness measurement is 10% or greater from prior exam. OTHER CONSIDERATIONS: The stage of liver fibrosis may be overestimated in the setting of acute hepatitis, liver inflammation, elevated liver function tests, hepatic vascular congestion, obstructive cholestasis, non-fasting state, and infiltrative diseases such as amyloidosis and lymphoma. In some patients with NAFLD, the liver stiffness thresholds for compensated advanced chronic liver disease may be lower. In causes other than viral hepatitis and NAFLD, liver stiffness thresholds are not well established. Electronically signed by: Johnny Corado MD 10/18/2024 12:46 PM EST RP Dictated By: Johnny Corado MD Signed By: <Electronically signed by Johnny Corado MD in OV> 10/18/24 1246 DD/ 0933 TD/TT: 10/18/24 0953 Clerical Transcriber: us [facility] External Provider IMG US PROCEDURES Edited Result - Final * XR Chest 2 Views (09/30/2024 9:09 AM EST) Anatomical Region Laterality Modality Chest Radiographic Anai ging 09/30/2024 9:09 AM EST Narrative 09/30/2024 10:16 AM EST ? [facility] ?[address] ?[place] [address] ?XRay Report ? Signed ? Patient: Aguilar,Sarah I ?MR#: [id number] ?? [id number] ? : 1985 ?Acct:[id number] ? Age/Sex: 39 / F ?ADM Date: 09/30/24 ? Loc: HO.XRAY ? Attending Dr: Parmjit Caraballo MD ? Ordering Physician: Parmjit Caraballo MD ?? Date of Service: 09/30/24 ?? Procedure(s): XR chest 2V ?? Accession Number(s): [id number] ? cc: Sarah Bradley MD; Parmjit Caraballo [...] DD/ 0909 ? TD/TT: 09/30/24 0919 ? Clerical Transcriber: MSM ? Procedure Note Mervin, lAmita - 09/30/[address] [address] XRay Report Signed Patient: Sarah Sheikh IMR#: [id number] : 1985Acct:[id number] Age/Sex: 39 / FADM Date: 09/30/24 Loc: HO.XRAY Attending Dr: Parmjit Caraballo MD Ordering Physician: Parmjit Caraballo MD Date of Service: 09/30/24 Procedure(s): XR chest 2V Accession Number(s): [id number] cc: Sarah Bradley MD; Parmjit Caraballo MD [...] 09/30/24 1013 DD/ 0909 TD/TT: 09/30/24 0919 Clerical Transcriber: YOH[facility] External Provider IMG XR PROCEDURES Edited Result - Final * (ABNORMAL) Vitamin D, 25-Hydroxy, Total, Immunoassay (09/30/2024 9:07 AM EST) Vitamin D 25-OH Total 22.6(L) >30 ng/mL [facility] Comment:Health Based Referen ce Values*< 20 ng/mL Bitevnpgq11-08 ng/mL Insufficient> 30 ng/mL Sufficient*Red ODONNELL. N [...] ORDERAB LES Final Result Performing Organization Address [facility] Co de Phone Number [facility] [address] [place] [address] [phone] * Vitamin B12 (Cobalamin) and Folate Panel, Serum (09/30/2024 9:07 AM EST) Vitamin B12 508 200 - 900 pg/mL [facility] Comment:NORMAL 200-900 PG/M L INDETERMINATE 160-199 PG/ML DEFICIENT < 160 PG/ML Folate 13.1 > or = 4.0 ng/mL [facility] Comment:Reference Values:> o r = 4.0 ng/mL< 4.0 ng/mL suggests folate deficiency Methotrexate, aminopterin and folinic acid(leucovorin) are chemotherapeutic agents whose molecularstructures are similar to folate; therefore, the Architectfolate assay cannot be used for patients using these drugs. 09/30/2024 9:07 AM EST 09/30/2024 9:07 AM EST us Generic External Data Provider LAB BLOOD ORDERAB LES Final Result Performing Organization Address [facility] Phone Number [facility] [address] [place] [address] [phone] * TSH with Reflex to Free T4 (09/30/2024 9:07 AM EST) Pathologist [facility] TSH reflex Free T4 1.27 0.32 - 4.0 uIU/mL [facility] 09/30/2024 9:07 AM EST 09/30/2024 9:07 AM EST Generic External Data Provider LAB BLOOD ORDERAB LES Final Result Performing Organization Address [facility] Co de Phone Number [facility] [address] [place] [address] [phone] * (ABNORMAL) CBC auto differential (09/30/2024 9:07 AM EST) White Blood Count 6.8 4.8 - 10.8 X10*3/uL [facility] Red Blood Count 4.57 4.20 - 5.50 X10*6/uL [facility] Hemoglobin 11.5(L) 12.0 - 16.0 g/dl [facility] Hematocrit 37.5 37.0 - 47.0 % [facility] Mean Corpuscular Volume 82.1 80.0 - 98.0 fL [facility] Mean Corpuscular Hemoglobin 25.2(L) 27.0 - 33.0 pg [facility] Mean Corpuscular HGB Conc 30.7(L) 31.0 - 35.0 g/dl [facility] Red Cell Distribution Width 15.2 11.0 - 16.0 % [facility] Platelet Count 286 160 - 400 X10*3/uL [facility] Mean Platelet Volume 11.0 9.4 - 12.3 fL [facility] Neutrophils Percent Auto 70.2 45 - 73 % [facility] Imm Gran Pct Auto 0.4 0.0 - 0.4 % [facility] Lymphocytes Percent Auto 20.6 20 - 40 % [facility] Monocytes Percent Auto 6.1 2 - 11 % [facility] Eosinophils Percent Auto 2.3 0 - 4 % [facility] Basophils Percent Auto 0.4 0 - 2 % [facility] NRBC Pct Auto 0.0 0.0 - 0.2 /100WBC [facility] Neutrophils Absolute Auto 4.8 2.0 - 8.3 x10*3/uL [facility] Imm Gran Abs Auto 0.03 0.00 - 0.03 X10*3/uL [facility] Lymphocytes Absolute Auto 1.4 1.2 - 4.9 X10*3/uL [facility] Monocytes Absolute Auto 0.4 0.1 - 1.2 X10*3/uL [facility] Eosinophils Absolute Auto 0.2 0.0 - 0.4 X10*3/uL [facility] Basophils Absolute Auto 0.0 0.0 - 0.2 X10*3/uL [facility] NRBC Abs Auto 0.000 0.0 - 0.012 X10*3/uL [facility] 09/30/2024 9:07 AM EST 09/30/2024 9:07 AM EST Generic External Data Provider LAB BLOOD ORDERAB LES Final Result Performing Organization Address [facility] de Phone Number [facility] [address] [place] [address] [phone] * (ABNORMAL) Iron And Total Iron Binding Capacity (09/30/2024 9:07 AM EST) Iron 33 30 - 160 mcg/dL [facility] Total Iron Binding Capacity 396 228 - 428 mcg/dL [facility] Percent Iron Saturation 8(L) 15 - 50 % [facility] Unsaturated Iron Binding 363 ug/dL [facility] 09/30/2024 9:07 AM EST 09/30/2024 9:07 AM EST Generic External Data Provider LAB BLOOD ORDERAB LES Final Result Performing Organization Address [facility] Phone Number [facility] [address] [place] [address] [phone] * Insulin (09/30/2024 9:07 AM EST) Insulin 18 2 - 29 uU/mL [facility] Comment:This test was perfor med [...] ORDERAB LES Final Result Performing Organization Address [facility] Co de Phone Number [facility] [address] [place] [address] [phone] * Zinc (09/30/2024 9:07 AM EST) Zinc 71 60 - 130 mcg/dL [facility] Comment:This test was develo ped and its analytical performancecharacteristics have been determined by [employer] [place], [place]. It hasnot been cleared or approved by the U.S. Food and DrugAdministration. This assay has been validated pursuantto the CLIA regulations and is used for clinicalpurposes.THIS TEST WAS PERFORMED AT:[employer] [id number] RAYMOND MD,PHD 09/30/2024 9:07 AM EST 09/30/2024 9:07 AM EST Generic External Data Provider LAB BLOOD ORDERAB LES Final Result Performing Organization Address [facility] de Phone Number [facility] [address] [place] [address] [phone] * (ABNORMAL) Vitamin A (09/30/2024 9:07 AM EST) Vitamin A (Retinol) 36(A) 38 - 98 mcg/dL [facility] Comment:Vitamin supplementat ion within 24 hours prior toblood draw may affect the accuracy of the results.This test was developed and its analytical performancecharacteristics have been determined by [employer]. It hasnot been cleared or approved by the U.S. Food and DrugAdministration. This assay has been validated pursuantto the CLIA regulations and is used for clinicalpurposes.THIS TEST WAS PERFORMED AT:[id number] [place] [address]DPEYMIIMEERA RAYMOND MD,PHD 09/30/2024 9:07 AM EST 09/30/2024 9:07 AM EST us Generic External Data Provider LAB BLOOD ORDERAB LES Final Result Performing Organization Address [facility] Co de Phone Number [facility] [address] [place] [phone] * C-reactive Protein (09/30/2024 9:07 AM EST) C Reactive Protein 0.47 < or = 0.50 mg/dL [facility] 09/30/2024 9:07 AM EST 09/30/2024 9:07 AM EST Generic External Data Provider LAB BLOOD ORDERAB LES Final Result Performing Organization Address [facility] Number [facility] [address] [place] [address] [phone] * Vitamin B1 (09/30/2024 9:07 AM EST) Vitamin B1 12 8 - 30 nmol/L [facility] Comment:Vitamin supplementat ion within 24 hours prior toblood draw may affect the accuracy of the results.This test was developed and its analytical performancecharacteristics have been determined by [employer] [place], [place]. It hasnot been cleared or approved by the U.S. Food and DrugAdministration. This assay has been validated pursuantto the CLIA regulations and is used for clinicalpurposes.THIS TEST WAS PERFORMED AT:[id number] [place] [address]RWGQNFMMEERA RAYMOND MD,PHD 09/30/2024 9:07 AM EST 09/30/2024 9:07 AM EST Generic External Data Provider LAB BLOOD ORDERAB LES Final Result Performing Organization Address [facility]/State/ZIP Co de Phone Number [facility] [address] [place] [phone] * Hemoglobin A1c (09/30/2024 9:07 AM EST) Hemoglobin A1c 5.9 <6.0 % [facility] Comment:Hemoglobin A1C Refer ence Range Adults: 4.8 - 6.0 % Non diabetic: < 6.0 % Goal: < 7.0 %Additional Action Suggested: > 8.0 %Note: Hemoglobin A1c results are invalid for patients with abnormal amounts of HbF. Blood transfusions may impact the HbA1c concentration in the patient sample. Estimated Average Glucose 123 mg/dL [facility] Comment:eAG = Estimated ave rage glucose which is %A1C expressed asaverage glucose, using the formula of the [id number]-[id number] Glucose study (ADAG), Diabetes Care, Vol.31,#8,2007 09/30/2024 9:07 AM EST 09/30/2024 9:07 AM EST us Generic External Data Provider LAB BLOOD ORDERAB LES Final Result Performing Organization Address [facility] Co de Phone Number [facility] [address] [place] [address] [phone] * Ferritin (09/30/2024 9:07 AM EST) Pathologist [facility] Ferritin 10 10 - 122 ng/mL [facility] 09/30/2024 9:07 AM EST 09/30/2024 9:07 AM EST us Generic External Data Provider LAB BLOOD ORDERAB LES Final Result Performing Organization Address [facility] Co de Phone Number [facility] [address] [place] [phone] * (ABNORMAL) Lipid Panel, Standard (09/30/2024 9:07 AM EST) Triglycerides 150(H) <150 mg/dL [facility] Comment:Desirable Triglyceri de: less than 150 mg/dLBorderline High Triglyceride 150-199 mg/dLHigh Triglyceride: 200-499 mg/dLVery High Triglyceride: greater than or equal to 5OO mg/dL Cholesterol 170 <200 mg/dL [facility] Comment:Desirable Cholestero l: less than 200 mg/dLBorderline High Cholesterol: 200-239 mg/dLHigh Cholesterol: greater than 239 mg/dL LDL Cholesterol Calculated 101(H) <100 mg/dL [facility] Comment:Desirable LDL: less than 100 mg/dLNear Optimal/Above Optimal LDL: 110- 129 mg/dLBorderline High LDL: 130-159 mg/dLHigh LDL: 160-189 mg/dLVery High LDL: greater than or equal to 190 mg/dL HDL Cholesterol 39(L) >40 mg/dL [facility] Comment:Desirable HDL: great er than 40 mg/dL Note: This HDL assay may give artificially low results in patients with liver disease. 09/30/2024 9:07 AM EST 09/30/2024 9:07 AM EST us Generic External Data Provider LAB BLOOD ORDERAB LES Final Result [facility] [address] [place] [phone] * (ABNORMAL) Comprehensive Metabolic Panel (09/30/2024 9:07 AM EST) Sodium 138 135 - 145 mmol/L [facility] Potassium 3.8 3.3 - 5.1 mmol/L [facility] Chloride 108 96 - 108 mmol/L [facility] Carbon Dioxide 26 22 - 29 mmol/L [facility] Anion Gap 8(L) 12 - 20 [facility] Urea Nitrogen (BUN) 27(H) 9 - 16 mg/dL [facility] Creatinine, Serum 0.70 0.5 - 1.4 mg/dL [facility] Estimated Glomerular Filt Rate >60 [facility] Comment:Chronic Kidney Disea se: Estimated GFR < 60 mL/min/1.03m5Gdyjwn Kidney Disease: Estimated GFR < 15 mL/min/1.73m2 Glucose 108 60 - 115 mg/dL [facility] Calcium 9.1 8.4 - 10.2 mg/dL [facility] Bilirubin, Total 0.3 0.0 - 1.0 mg/dL [facility] Aspartate Amino Transferase 22 5 - 31 U/L [facility] Alanine Aminotransferase 17 0 - 31 U/L [facility] [facility] Total Protein 8.4(H) 6.5 - 8.0 g/dL [facility] Albumin Level 4.4 3.5 - 5.0 g/dL [facility] Alkaline Phosphatase 74 39 - 117 U/L [facility] 09/30/2024 9:07 AM EST 09/30/2024 9:07 AM EST us Generic External Data Provider LAB BLOOD ORDERAB LES Final Result [facility] [address] [place] [phone] * Pap Smear (02/21/2023) Historical Provider HEALTH MAINTENANCE Final Result * HPV E6/E7 RFLX CLAIRE 16 18/45 (12/08/2021 10:43 AM EDT) HPV mRNA E6/E7 rflx Not Detected Not Detected [facility] Comment: Methodology: Commodity Analyst-Mediated Amplification This assay detects E6/E7 viral messenger RNA (mRNA) from 14 high-risk HPV types (16,18,31,33,35,39,45,51,52,56,58,59,66,68). The analytical performance characteristics of this assay have been determined by [employer]. The modifications have not been cleared or approved by the FDA. This assay has been validated pursuant to the CLIA regulations and is used for clinical purposes. For additional information, please refer to http://education.[employer].Bawte/faq/KPU085s3 (This link if provided for information/ educational purposes only.) THIS TEST WAS PERFORMED AT: [employer] [address] [place], [place] ??[address] KLAUS BRASHER MD 12/08/2021 10:4 3 AM EDT us Lainecharly Zamora HISTORICAL/NON ORDERABLE LABS Fi nal Result Performing Organization Address [facility] Phone Number [facility] [address] [place] [address], * HEPATITIS C ANTIBODY (11/16/2019 10:03 AM EDT) HEPATITIS C ANTIBODY [facility] Comment: Antibodies to HCV not detected; does not exclude early acute HCV infection. 11/16/2019 10:0 3 AM EDT us Laine Zamora HISTORICAL/NON ORDERABLE LABS Fi nal Result Performing Organization Address [facility] Phone Number [facility] [address] [place] [address], * HIV AB/AG (11/16/2019 10:03 AM EDT) [...] detection of this assay. ?? The [employer]ervation Agent HIV Ag/Ab Combo assay result and supplemental assay results should be interpreted in conjunction with the patient's clinical presentation, history and other laboratory results. ??If the results are inconsistent with clinical evidence, additional testing is suggested to confirm the result. 11/16/2019 10:0 3 AM EDT us Laine Zamora HISTORICAL/NON ORDERABLE LABS Fi nal Result Performing Organization Address [facility] Phone Number [facility] [address] [place] [address], from Last 3 Months or Most Recently Relevant to Health Maintenance [facility] C[facility] MEDICAID STAND ADULT Care Teams Food Service Assistant Relationship Specialty Start Date End Date Sarah Bradley MD [address] [place] [phone] PCP - General Family Medicine 06/22/18 Aisha Savage Circus RoustaboutRadiator Fitter 04/11/24
--- OUTSIDE RECORDS SUMMARY | 2024-11-14 10:31 | XMS_ITS | Encounter Summary ---
Author Organization [employer] [facility] Address [address] [place] [address] Care Team Providers Care Manager Outpatient Name Role Phone Sarah Bradley MD Primary Care Provide r Encounter Details Date Type Department Care Team (Latest Contact Info) Description 12/15/2020 Abstract [facility] CONVERSIONS Dental, Provider, DDS Social History Tobacco [...] Description 12/31/2024 9:30 AM EDT Office Visit [facility] MEDICINE [address] [place] [address] Sarah Bradley MD [address] [place] [address] 01/29/2025 10:30 AM EDT Office Visit [facility] OPTOMETRY [address] [place] [address] Katy Del Cid, OD [address] [place] [address] documented as of this encounter Visit Diagnoses Not on filedocumented in this encounter Care Teams Manager Outpatient Relationship Specialty Start Date End Date Sarah Bradley MD [address] [place] [address] PCP - General Family Medicine 06/22/18 Aisha Savage [employer] Electrical PersonClean Up Helper Banquet 04/11/24 documented as of this encounter
--- OUTSIDE RECORDS SUMMARY | 2024-11-14 10:31 | XMS_ITS | Encounter Summary ---
Author Organization [employer] Address [address] [facility] 7t [place] [address] Care Team Providers Care Tractor Operator Name Role Phone Sarah Bradley MD Primary Care Provide r Encounter Details Date Type Department Care Team (Late Contact Info) Description 01/27/2023 Abstract [facility] MEDICINE [address] [place] [phone] Sarah Bradley MD [address] [place] [address] [phone] Social History Tobacco Use Types Packs/Day Years [...] Department Care Team (Late Contact Info) Description 12/31/2024 9:30 AM EDT Office Visit [facility] MEDICINE [address] [place] [phone] Sarah Bradley MD [address] [place] [address] 01/29/2025 10:30 AM EDT Office Visit [facility] OPTOMETRY [address] [place] [address] Katy Del Cid, OD [address] [place] [address] documented as of this encounter Procedures Procedure Name Priority Date/Time Associated Diagnosis Comments HM PAP/HPV Routine 12/09/2021 12:00 AM EDT documented in this encounter Results * Pap Smear (12/09/2021 12:00 AM EDT) us Historical Provider HEALTH MAINTENANCE Final Result documented in this encounter Visit Diagnoses Not on filedocumented in this encounter Additional Health Concerns Assessment Noted Time PHQ-9 Depression Total Score: 0 01/18/20 23 10:22 AM EDT documented as of this encounter Care Teams Tractor Operator Relationship Specialty Start Date End Date Sarah Bradley MD [address] [place], [place] [phone] PCP - General Family Medicine 06/22/18 Aisha Savage Commodity SpecialistSales Department Supervisor 04/11/24 documented as of this encounter
--- OUTSIDE RECORDS SUMMARY | 2024-11-14 10:32 | XMS_ITS | Encounter Summary ---
Author Organization [employer] Address [address] [facility] [address] [place] [address] Care Team Providers Care Hog Ringer Name Role Phone Sarah Bradley MD Primary Care Provide r Encounter Details Date Type Department Care Team ([facility] st Contact Info) Description 07/26/2024 Telephone [facility] MEDICINE [address] [place] [address] Sarah Bradley MD [address] [place] [address] Social History Tobacco Use Types Packs/Day Years [...] Description 12/31/2024 9:30 AM EDT Office Visit [facility] MEDICINE [address] [place] [address] Sarah Bradley MD [address] [place] [address] 01/29/2025 10:30 AM EDT Office Visit [facility] OPTOMETRY [address] [place] [address] Nehemias, Katy, OD [address] [place] [address] documented as of this encounter Visit Diagnoses Not on filedocumented in this encounter Additional Health Concerns Assessment Noted Time PHQ-9 Depression Total Score: 0 02/19/20 1:15 PM EDT documented as of this encounter Care Teams Hog Ringer Relationship Specialty Start Date End Date Sarah Bradley MD [address] [place] [address] PCP - General Family Medicine 06/22/18 Aisha Savage Tin RooferPaint Crew Supervisor 04/11/24 documented as of this encounter
--- OUTSIDE RECORDS SUMMARY | 2024-11-14 10:32 | XMS_ITS | Encounter Summary ---
Author Organization [employer] Address [address] [facility] 7t [place] [address] Care Team Providers Care Medical Equipment Repairer Name Role Phone Sarah Bradley MD Primary Care Provide r Encounter Details Date Type Department Care Team (Late Contact Info) Description 06/07/2023 Abstract [facility] MEDICINE [address] [place] [address] [phone] Sarah Bradley MD [address] [place] [address] [phone] Social History Tobacco Use Types Packs/Day Years [...] Description 12/31/2024 9:30 AM EDT Office Visit [facility] MEDICINE [address] [place] [address] [phone] Sarah Bradley MD [address] [place] [address] [phone] 01/29/2025 10:30 AM EDT Office Visit [facility] OPTOMETRY [address] [place], [place] [phone] Katy Del Cid, OD [address] [place] [address] documented as of this encounter Procedures Procedure Name Priority Date/Time Associated Diagnosis Comments COLPOSCOPY Routine 12/29/2020 PAP/HPV Routine 12/03/2020 documented in this encounter [...] documented as of this encounter Care Teams Medical Equipment Repairer Relationship Specialty Start Date End Date Sarah Bradley MD [address] [place], [place] [phone] PCP - General Family Medicine 06/22/18 Aisha Savage Manager WoundBell Staff 04/11/24 documented as of this encounter
--- OUTSIDE RECORDS SUMMARY | 2024-11-14 10:32 | XMS_ITS | Encounter Summary ---
Author Organization [employer] [facility] Address [address] [facility] 7t [place] [address] Care Team Providers Care Shirt Presser Name Role Phone Sarah Bradley MD Primary Care Provide r Encounter Details Date Type Department Care Team ([facility] Contact Info) Description 03/22/2023 Orders Only [facility] MEDICINE [address] [place] [address] [phone] ProviderYessi MD Social History Tobacco Use Types Packs/Day Years [...] Description 12/31/2024 9:30 AM EDT Office Visit [facility] MEDICINE [address] [place] [phone] Sarah Bradley MD [address] [place] [address] [phone] 01/29/2025 10:30 AM EDT Office Visit [facility] OPTOMETRY [address] [place], [place] [phone] Nehemias Katy, OD [address] [place] [address] documented as of this encounter Procedures Procedure Name Priority Date/Time Associated Diagnosis Comments HM PAP/HPV Routine 02/21/2023 documented in this encounter Results * Hm Pap Smear (02/21/2023) us Historical Provider HEALTH MAINTENANCE Final Result documented in this encounter Visit Diagnoses Not on filedocumented in this encounter Additional Health Concerns Assessment Noted Time PHQ-9 Depression Total Score: 0 01/18/20 10:22 AM EDT documented as of this encounter Care Teams Shirt Presser Relationship Specialty Start Date End Date Sarah Bradley MD [address] [place], [place] [phone] PCP - General Family Medicine 06/22/18 Aisha Savage [employer] WorkerEmbroidery Finisher 04/11/24 documented as of this encounter
--- OUTSIDE RECORDS SUMMARY | 2024-11-14 10:32 | XMS_ITS | Encounter Summary ---
Author Organization [employer] Address [address] [facility] 7t [place] [address] Care Team Providers Care Dairy And Food Laboratory Assistant Name Role Phone Sarah Bradley MD Primary Care Provide r Encounter Details Date Type Department Care Team (Late Contact Info) Description 03/22/2023 Abstract [facility] MEDICINE [address] [place] [phone] Sarah Bradley MD [address] [place] [phone] Social History Tobacco Use Types Packs/Day Years [...] Description 12/31/2024 9:30 AM EDT Office Visit [facility] MEDICINE [address] [place] [address] Sarah Bradley MD [address] [place] [address] 01/29/2025 10:30 AM EDT Office Visit [facility] OPTOMETRY [address] [place] [address] Katy Del Cid, OD [address] [place] [address] documented as of this encounter Visit Diagnoses Not on filedocumented in this encounter Additional Health Concerns Assessment Noted Time PHQ-9 Depression Total Score: 0 01/18/20 23 10:22 AM EDT documented as of this encounter Care Teams Dairy And Food Laboratory Assistant Relationship Specialty Start Date End Date Sarah Bradley MD [address] [place], [place] [phone] PCP - General Family Medicine 06/22/18 Aisha Savage Manager InstallationUndercoater 04/11/24 documented as of this encounter
--- OUTSIDE RECORDS SUMMARY | 2024-11-14 10:32 | XMS_ITS | Clinical Summary ---
Author Organization [employer] [facility] ity Address [address] [place] [address] Care Team Providers Care Internal Corrosion Specialist Name Role Phone Unavailable Primary Care Provider [...]
--- OUTSIDE RECORDS SUMMARY | 2024-11-14 10:32 | XMS_ITS | Encounter Summary ---
Author Organization [employer] Address [address] [facility] [address] [place] [address] Care Team Providers Care Shift Superintendent Name Role Phone Sarah Bradley MD Primary Care Provide r Reason for Visit * Reason Onset Date Comments PT1 03/22/2024 Encounter Details Date Type Department Care Team ([facility] Contact Info) Description 03/22/2024 Telephone [facility] MEDICINE [address] [place] [address] Sarah Bradley MD [address] [place] [address] PT1 Social History Tobacco Use Types Packs/Day [...] Y/N: Yes Provider name or facility name: [facility] Facility Address: [address] [place] [address] Escort needed: Y/N: No Do you have a wheelchair: Y/N: No If yes- Manual or electric: n/a Visits; all future visits documented in this encounter Plan of Treatment Upcoming Encounters Date Type Department Care Team (Late st Contact Info) Description 12/31/2024 9:30 AM EDT Office Visit [facility] MEDICINE [address] [place] [address] Sarah Bradley MD [address] [place] [address] 01/29/2025 10:30 AM EDT Office Visit [facility] OPTOMETRY [address] [place] [address] Katy Del Cid, OD [address] [place] [address] documented as of this encounter Visit Diagnoses Not on filedocumented in this encounter Additional Health Concerns Assessment Noted Time PHQ-9 Depression Total Score: 0 02/19/20 1:15 PM EDT documented as of this encounter Care Teams Shift Superintendent Relationship Specialty Start Date End Date Sarah Bradley MD [address] [place] [address] PCP - General Family Medicine 06/22/18 Aisha Savage Pantry ChefEmbedded Nurse 04/11/24 documented as of this encounter
--- NOTE | 2024-12-03 08:48 | ECG_ITS ---
Test Reason : obesity Blood Pressure : */* mmHG Vent. Rate : 76 BPM Atrial Rate : 76 BPM P-R Int : 126 ms QRS Dur : 84 ms QT Int : 410 ms P-R-T Axes : 14 55 9 degrees QTcB Int : 461 ms Normal sinus rhythm Normal ECG When compared with ECG of 03-Mar-2023 21:25, No significant change was found Referred By: Parmjit Caraballo Electronically Signed By: VIVI GARNER
[2024-12-03 11:59] VITALS: BMI 35.1
[2024-12-03 12:04] LABS: UPreg QC Valid YES; Urine Pregnancy NEGATIVE (NEGATIVE)
[2024-12-03 12:07] VITALS: BP 137/86; PULSE 85; RESP 16; TEMP 36.6; O2SAT 99
[2024-12-03] MEDS: Lactated Ringers 1,000 ML 80 ML IVCONT (12:24)
--- NOTE | 2024-12-03 12:59 | P.HPSUR_ITS ---
Pre-Procedural Eval Section A - 24 Hr Update-Section A only Date of Service: 12/03/24 The patient is an INPATIENT: No The patient has been examined within 24 hours of the surgical procedure. The History & Physical has been completed within 30 days and I have reviewed it.: Yes Section B - Complete if H&P > 30 days Chief Complaint: Morbid (severe) obesity due to excess calories Details of Present Illness: GERD Relevant Family History (Specify if Yes): No Relevant Social History: None Present Medications: None Medical History: No relevant PMH History of Previous Operations: No relevant previous surgery Allergies: Allergies Allergy/AdvReac Type Severity Reaction Status Date / Time latex [LATEX] Allergy Intermediate HANDS SWELL Verified 10/16/24 13:11 Review of Systems Sugical H&P ROS: Negative: Constitution, Cardiovascular, Respiratory, Neurological, Psychiatric, Hem-Onc, Allergic/Immunologic, Gastrointestinal, Genitourinary, Musculoskeletal, Integumentary, Endocrine and Eyes/Ea rs/Nose/Throat Exam Surgical H&P Exam: Normal: HEENT, Normal: Heart, Normal: Lungs, Normal: Extremities, Normal: Abdomen, Normal: Skin and Normal: Neurological Plan Diagnosis/Plan: Unchanged (EGD to assess etiology of GERD. Risks of bleeding and perforation were discussed with the patient and she is in agreement with the plan.) I have reviewed the history and physical and performed a pertinent physical examination on my patient. No changes have occurred unless specified. Time Spent With Patient Time: Total time managing care of this patient today ____ minutes.
--- NOTE | 2024-12-03 13:12 | P.BOP_ITS ---
Brief Operative Note Date of Service: 12/03/24 Pre-op diagnosis: GERD Post-op diagnosis: same Procedure: PROCEDURE DATE: 12/03/2024 PREOPERATIVE DIAGNOSIS: GERD POSTOPERATIVE DIAGNOSIS: ?Same as above. Normal endoscopy PROCEDURE: Amijupny-ngfccq-efjbyamerrmm with biopsies Surgeon: Isaias Caraballo M.D.. Ph.D. Sharepoint Manager: None ? Anesthesia: IV sedation Estimated blood loss: ?Minimal FINDINGS AND PROCEDURE: ? OPERATIVE INDICATIONS: ?The patient is a 39 year old female known to me who is interested in bariatric surgery. The patient has GERD. Based on this information I recommended an upper endoscopy to evaluate the patient's symptoms. Risks and complications of the surgery were discussed with the patient in advance particularly the possibility of perforation or bleeding that may require surgical intervention. The patient understood the risks and was in agreement with the plan. ? PROCEDURE: After informed consent was obtained by the patient, the patient was ?transferred to the Operating Room and was placed in the supine position.? After successful induction of IV sedation, a mouth block was inserted and the patient was placed in the left lateral decubitus position. An upper endoscopy was performed next, the oropharynx and esophagus appeared within the normal limits. There was no hiatal hernia. The z-line was smooth. Two biopsies were obtained from the distal esophagus 2-3 cm proximal to the GE junction and two additional biopsies from the GE junction. The stomach was entered and it appeared to be of normal size. There was no gastritis. There was no stricture or ulcer. A biopsy was obtained from the gastric fundus and the antrum. No significant bleeding was noted from any of the biopsy sites. Retroflexion of the scope confirmed the presence of a normal GE junction. The scope was then advanced into the duodenum which appeared to be normal as well. At that point the duodenum ?and the stomach were decompressed and the scope was withdrawn from the patient's mouth. The patient extubated and was transferred in stable condition to the Recovery Room for further care. I was present and performed all steps of the procedure. There were no residents to assist with this case. Jovon Caraballo M.D., Ph.D. Surgeon: Parmjit Caraballo MD Anesthesia: MAC Was an Sharepoint Manager used for this Procedure?: No Estimated blood loss (mL): 0 IV fluids (mL): 400 Urine output (mL): 0 (No Galvin to record output) Pathology: other (1) antrum x1, 2) fundus x1, 3) GE junction x2, 4) distal esophagus x2) Condition: stable Disposition: PACU
--- NOTE | 2024-12-03 13:17 | HO.ANESPROP2 ---
HPI - Anesthesia Eval Consult details Narrative: 39 yo female patient for EGD PMFSH Active Problems Active Problems: All Active Problems (Updated 10/25/24 @ 17:58 by Parmjit Caraballo MD) Vitamin A deficiency (Acute) Vitamin D deficiency (Acute) Anemia (Acute) Asthma (Acute) Non-insulin dependent type 2 diabetes mellitus (Acute) Sleep apnea treated with continuous positive airway pressure (CPAP) (Acute) Sleep apnea (Acute) Hypothyroidism (Acute) BMI 37.0-37.9, adult (Acute) Excessive daytime sleepiness (Acute) Pelvic floor weakness (Acute) Encounter for IUD removal (Acute) Abnormal uterine bleeding (Acute) Cervical cancer screening (Acute) Prediabetes (Acute) IUD check up (Acute) Encounter for IUD insertion (Acute) KELL (obstructive sleep apnea) (Acute) Chronic diarrhea (Acute) Mastodynia of left breast (Acute) Abnormal thyroid blood test (Acute) ASCUS with positive high risk HPV (Acute) Left breast lump (Acute) Amenorrhea (Acute) Well woman exam (Acute) Family planning (Acute) Obesity (BMI 30-39.9) (Acute) Supraumbilical hernia (Acute) History of umbilical hernia repair (Acute 05/13/19) HTN (hypertension) (Acute) Diastasis recti (Acute) Past Medical History Medical History Non-insulin dependent type 2 diabetes mellitus Sleep apnea treated with continuous positive airway pressure (CPAP) Sleep apnea Hypothyroidism Elevated cholesterol Obesity (BMI 30-39.9) Supraumbilical hernia HTN (hypertension) Anemia History of hypothyroidism Hx of sleep apnea Diastasis recti Depression Asthma GERD (gastroesophageal reflux disease) Family History Family History Father No problems noted. Mother HTN (hypertension) Asthma Hyperthyroidism Diabetes Paternal Aunt Breast cancer Son Asthma Son Asthma ADHD Son Asthma Daughter Autism Family history of problems with anesthesia: No Surgical History Surgical History Hx of section History of umbilical hernia repair (05/13/19) History of Problems with Anesthesia: No Social History Social History Household Members: Spouse and Children Housing: Apartment Are you a primary resident care assistant to a significant other at home: No Do you presently have visiting nurse or other home services: No Alcohol intake: former Patient Tobacco Use Status: Never used Tobacco Sexual orientation: Straight/Heterosexual Gender identity: Female Meds Allergies Allergy/AdvReac Type Severity Reaction Status Date / Time latex [LATEX] Allergy Intermediate HANDS SWELL Verified 10/16/24 13:11 Active Medications: Current Medications Lactated Ringer's (Lr) 1,000 mls @ 80 mls/hr IVCONT .[id number] Last Admin: 12/03/24 12:24 Dose: 80 mls/hr Home Medications ?Medication ?Instructions ?Recorded ?Confirmed ?Last Taken ?Type albuterol sulfate 90 mcg/actuation 2 puff inhalation Q4H PRN 06/17/21 10/16/24 Unknown History aerosol inhaler (ProAir HFA) Shortness Of Breath Or Wheezing levothyroxine 137 mcg tablet 137 mcg PO QAM 02/09/23 10/16/24 Unknown History nifedipine 60 mg tablet,extended 60 mg PO QAM 06/13/24 10/16/24 08/13/24 History release metformin 500 mg tablet 500 mg PO BID 09/12/24 10/16/24 Unknown History Exam Height,Weight and Vital Signs: Height 4 ft 11 in Weight 78.925 kg Last Vital Signs Temp 97.9 F 12/03/24 12:07 Pulse 85 12/03/24 12:07 Resp 16 12/03/24 12:07 BP 137/86 12/03/24 12:07 Pulse Ox 99 12/03/24 12:07 O2 Del Method Room Air 12/03/24 12:07 Pertinent Lab Results Pertinent Lab Results: Laboratory Tests 12/03/24 11:59 Urine Test NEGATIVE Airway Mallampati Class: II TM Dist: >3cm Neck ROM: Full Loose/Missing/Broken Teeth: Yes (Missing tooth bottom right back. 1 Cap top front. Denies broken or loose teeth) Heart: RRR Lungs: CTAB Assessment and Plan Assessment Anesthesia Assessment: Anesthesia Plan Discussed and Chart Reviewed Final Anesthetic Review Family History of Problems with Anesthesia: No History of Problems with Anesthesia: No NPO: Yes ASA Class: III Final Preanesthetic Review: No Changes in Pt Med Stat, Meds/Allgs Chart Reviewed, Consent Obtained/Reviewed and Anes Risks/Benef Reviewed Patient Risk: Intermediate Procedure Risk: Low Assessment/Block/Sedation in SS: Assess/Block/Sedation-SS Anesthetic Plan Anesthetic Plan: TIVA Disposition: Standard PACU
[2024-12-03 13:56] VITALS: BP 128/83; PULSE 104; RESP 18; TEMP 36.5; O2SAT 97
[2024-12-03 14:09] VITALS: BP 135/92; PULSE 83; RESP 16; O2SAT 100
== END 2024-12-03 14:38 | disposition home or self-care (01) ==
PROVIDERS: Anesthesiology; PCP Internal Medicine; Visit Provider Surgery
PROC: 0DJ08ZZ Inspection of Upper Intestinal Tract, Via Natural or Artificial Opening Endoscopic (ICD-10-PCS; CPT 43235; principal; 2024-12-03 13:30)
DX: K21.9 Gastro-esophageal reflux disease without esophagitis (principal); E66.01 Morbid (severe) obesity due to excess calories; Z68.37 Body mass index [BMI] 37.0-37.9, adult; E11.9 Type 2 diabetes mellitus without complications; I10 Essential (primary) hypertension; E78.00 Pure hypercholesterolemia, unspecified; D64.9 Anemia, unspecified; G47.33 Obstructive sleep apnea (adult) (pediatric); M62.08 Separation of muscle (nontraumatic), other site; J45.909 Unspecified asthma, uncomplicated; Z79.84 Long term (current) use of oral hypoglycemic drugs; Z99.89 Dependence on other enabling machines and devices; Z79.899 Other long term (current) drug therapy; Z91.040 Latex allergy status; E03.9 Hypothyroidism, unspecified; Z98.890 Other specified postprocedural states
CPT/HCPCS: 43239; 81025; 88305; 88313; 88342; 93005; J1596; J2003; J2704

== ENCOUNTER → 2024-12-03 11:34 | Outpatient (BNV) | payer MEDICAID, SELFPAY | PROVIDERS: PCP Internal Medicine; Visit Provider Surgery | DX: K21.9 Gastro-esophageal reflux disease without esophagitis (principal) | CPT/HCPCS: 43239 ==

== ENCOUNTER 2024-12-05 09:45 | Outpatient (REF) | payer MEDICAID, SELFPAY ==
--- NOTE | ~2024-12-05 | FL_ITS ---
EXAMINATION: XR FLUOROSCOPY UPPER GI SERIES CLINICAL INFORMATION: Obesity, unspecified. Preoperative exam. No specific complaints. COMPARISON: No prior. TECHNIQUE: Fluoroscopic air contrast upper GI examination was performed utilizing standard techniques with thin and thick barium and effervescent granules. Numerous spot images were obtained. Several fluoroscopic image hold cine sequences were also obtained. FINDINGS: UPPER GI SERIES: Lateral cine images of the oropharynx and hypopharynx demonstrate normal swallow mechanism with normal epiglottic inversion and soft palate elevation. No laryngeal penetration, glottic or subglottic aspiration identified. No nasopharyngeal reflux present. Hypopharyngeal structures appear normal without evidence of mass or diverticulum. There was mild cricopharyngeal achalasia. Dual and single contrast images of the esophagus demonstrate normal caliber, contour, and mucosal pattern. No evidence of stricture, mass, or ulcerations identified. Esophageal peristalsis was normal. No evidence of hiatus hernia identified. Normal GE junction. No significant gastroesophageal reflux was seen during the course of the examination and on reflux views. Dual contrast and single contrast images of the stomach demonstrated somewhat elongated contour. There are multiple filling defects intraluminally consistent with retained food. There were nonmobile small filling defects in the fundus, body, and antrum, suggestive of hyperplastic polyps. There is diffuse thickening of the area gastricae consistent with gastritis. No gastric outlet obstruction. No concerning masses or gross ulcerations. Contrast slowly passed into the gastric antrum and duodenal bulb with mild delay. Single and air-contrast images of the duodenal bulb demonstrate no abnormality. The duodenal sweep has a normal appearance, course, and mucosal fold appearance. FLUOROSCOPY TIME: 2 minutes, 42 seconds Number of Spot Images:12 Number of cines obtained: 12 DOSE AREA PRODUCT: [id number] uGy-m2 (microgray-meter squared) FL/FL upper GI w air IMPRESSION: 1. Mild cricopharyngeal achalasia. 2. Somewhat elongated stomach with retained mobile food intraluminally, raising concern for gastroparesis. Patient states last meal was prior day. Mild delay of contrast passage into the duodenum. 3. Multiple small mural filling defects within the stomach most likely representing hyperplastic polyps. There is diffuse thickening of the areae gastricae consistent with gastritis. 4. No hiatus hernia and no definite gastroesophageal reflux noted during the exam. Electronically signed by: Reji Martinez MD 12/05/2024 11:00 AM EDT RP
--- OUTSIDE RECORDS SUMMARY | 2024-12-05 10:15 | XMS_ITS | Clinical Summary ---
Author Organization [employer] [facility] ity Address [address] [place] [address] Care Team Providers Care Stores Laborer Name Role Phone Unavailable Primary Care Provider [...]
== END 2024-12-05 09:46 | disposition home or self-care (01) ==
LOC: HO.XRAY 09:45
PROVIDERS: PCP Internal Medicine; Visit Provider Surgery
DX: E66.9 Obesity, unspecified (principal); Z68.37 Body mass index [BMI] 37.0-37.9, adult; E11.9 Type 2 diabetes mellitus without complications; I10 Essential (primary) hypertension
CPT/HCPCS: 74246

== ENCOUNTER → 2024-12-05 09:47 | Outpatient (BNV) | payer MEDICAID, SELFPAY | PROVIDERS: PCP Internal Medicine; Visit Provider Radiology Diagnostic Radiology | DX: E66.9 Obesity, unspecified (principal); Z01.818 Encounter for other preprocedural examination | CPT/HCPCS: 74246 ==

== ENCOUNTER 2024-12-31 08:05 | Outpatient (AMB) | payer MEDICAID, SELFPAY ==
--- OUTSIDE RECORDS SUMMARY | 2024-12-31 08:12 | XMS_ITS | Clinical Summary ---
Author Organization [employer] [facility] ity Address [address] [place] [address] Care Team Providers Care Uniform Patrol Police Officer Name Role Phone Unavailable Primary Care Provider [...] - 2023-2 5 season) 2024 Influenza Vaccine (Season Ended) 2025 HIB Vaccines Aged Out No longer eligi [...] age to complete this topic Meningococcal B Vaccine Aged Out No l onger eligible based on patient's age to complete [...]
--- NOTE | 2024-12-31 09:14 | MHC.OFFVISWM ---
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 EDUCATION SPECIALIST* Keyboard Instrument Tuner Required: Yes Keyboard Instrument Tuner Services: Keyboard Instrument Tuner Present Information Interpreted: clinical only Allergies latex [LATEX] Allergy (Intermediate, Verified 12/31/24 09:32) HANDS SWELL Medication List - Last Reconciled 12/31/24 by Parmjit Caraballo MD albuterol sulfate 90 mcg/actuation (ProAir HFA) 2 puffs inhalation Q4H PRN cholecalciferol (vitamin D3) 125 mcg PO DAILY iron,carbonyl-vitamin C 65 mg iron- 125 mg (Vitron-C) 1 tab PO DAILY levothyroxine 137 mcg PO QAM metformin 500 mg PO BID nifedipine ER 60 mg PO QAM ondansetron 4 mg PO Q12H pantoprazole 40 mg PO DAILY phentermine 15 mg PO DAILY polyethylene glycol 3350 17 grams PO DAILY sucralfate 10 mL PO BID vitamin A palmitate 10,000 units PO DAILY HPI HPI TV Pre Op LSG 01/14/25 *PHYSICAL EDUCATION SPECIALIST*: Details: Start time: 9.15am, End time: 9.45am I spent 25 minutes speaking with the patient on the phone plus an additional 5 minutes reviewing and updating records for a total of 30 minutes HPI Comments Details: Overall weight loss: 19.7lbs, or 10.5% TBWL Is doing one Celebrate Rebuild protein shake and meal (8 forks of protein and 8 forks of salad or vegetables) Exercise: [facility] Medical History Non-insulin dependent type 2 diabetes mellitus Sleep apnea treated with continuous positive airway pressure (CPAP) Sleep apnea Hypothyroidism Elevated cholesterol Obesity (BMI 30-39.9) Supraumbilical hernia HTN (hypertension) Anemia History of hypothyroidism Hx of sleep apnea Diastasis recti Depression Asthma GERD (gastroesophageal reflux disease) Surgical History Hx of section History of umbilical hernia repair (05/13/19) Family History Father No problems noted. Mother HTN (hypertension) Asthma Hyperthyroidism Diabetes Paternal Aunt Breast cancer Son Asthma Son Asthma ADHD Son Asthma Daughter Autism Social History Household Members: Spouse and Children Housing: Apartment Are you a primary child care associate teacher to a significant other at home: No Do you presently have visiting nurse or other home services: No Alcohol intake: former Patient Tobacco Use Status: Never used Tobacco Sexual orientation: Straight/Heterosexual Gender identity: Female Female Reproductive History Menstrual Age of Menarche: 13 Telehealth Telehealth Telehealth Platform: Telephone Location of provider rendering services: practice address Location of patient: address on file Patient Identification confirmed using: Name, : Yes Telehealth method: voice only Patient verbally consented to treatment: Yes Patient verbally consented to billing insurance company: Yes Patient informed of any privacy concerns related to visit: Yes Minutes spent on Phone/Video with Pt.: 30 Assessment & Plan Assessment & Plan (1) Obesity (BMI 30-39.9): Code(s): E66.9 - Obesity, unspecified Category: Medical Plan: 1. Plan for lap sleeve gastrectomy including upper GI endoscopy. All tests has been completed and reviewed and the patient is cleared for the surgery. If diaphragmatic or ventral hernias are present at time of surgery, these will be repaired laparoscopically as well. The surgery does not replace the need to change your lifestlyle which is the cause of the obesity problem. The surgery provides the motivation to try again to change your lifestyle, it reduces the appetite and make the transition to a better lifestyle easier and doubles the amount of weight you would lose compared to doing the lifestyle change without the surgery. You will need to be on a liquid diet with protein shakes for 2 weeks before surgery to maximize weight loss and boost your nutritional status to recover better from surgery and also for the first two weeks after surgery to let the stomach heal before we introduce other foods. After the first 2 weeks we will introduce protein bars and soft foods like scrambled eggs, cottage cheese and yogurt and after the 6th week will introduce meat, fish and cooked vegetables in small amounts. Over time you should be able to eat everything in small amounts. Side effects like nausea, vomiting, heartburn or abdominal pain are not common in the practice unless you are not following in the practice. This operation requires lifetime commitment to following in our practice and communication with me. You will much less weight and experience side effects if you don?t communicate or not following in the practice. Complications are rare and in our practice is about 1/10 of the national average. However, you can develop bleeding that may require transfusion (hasn?t happened for year in the practice), you may from complications (we did not have any deaths in the practice) and infections. Infections are usually a result of breakdown in communication or not understanding or following directions correctly. They are difficult to treat, they can happen during the first 6 weeks, they may require to be in the hospital for weeks or even months, not being able to eat by mouth and you may have drains and surgeries to try and correct the issue. Other risks and complications include possible conversion to an open procedure, leaks, small bowel obstruction, blood clots, cardiac, or pulmonary complications, as terminal operator complications such as ulcers, insufficient weight loss and vitamin deficiencies. So far she has proven to be an excellent communicator and very compliant with all our directions accomplishing a great weight loss. I believe that she is an excellent candidate and she is ready. 2. Preop prescriptions were provided and explained the purpose of each one. Need to be purchased preop. Start Pantoprazole now as you get it from the pharmacy, 1 pill per day. Sucralfate and Zofran are for after surgery as needed. 3. Bowel prep: please do 7 packets of Miralax mixing each one with a an 8oz glass of water, crystal light, gatorade zero, or propel on 01/12/2025 and the same amount on 01/13/25. The Miralax you begin with one packet at a time in 8oz water or crystal light, gatorade zero, or propel as early in the day as you can and you do them back to back until you finish them. Continue the protein shakes during the bowel prep. 4. Needs to purchase 1oz medicine cups . 5. Needs to purchase Children's liquid Tylenol for postop pain control. 6. She needs to stop the Metformin as of today 12/31/24. Continue the Phentermine but the last dose needs to be on 01/12/25. Avoid aspirin, motrin, Advil, Aleve, Ibuprofen, Naproxyn. Tylenol is OK. 7. She needs to purchase the Celebrate 4:1 protein shakes from the hospital's gift shop. 8. Will do basic preop blood work-up on 01/10/2025 fasting for 12 hours and is scheduled to see the Anesthesiologist prior to the day of surgery. 9. Importance of adherence to postop folllow-up and recommendations was underscored and she understands that. 10. Stop food and bars as of Monday01/03/25 and continue with 5 Celebrate Rebuild protein shakes (ONE scoop EACH in 8oz almond milk) at 7am-9am, 10am-12pm, 1pm-3pm, 4pm-6pm and at 7pm-9pm 11. No soups, broths or V8 12. The patient's medical history has been reviewed and they are considered low risk for post op DVT and therefore DVT prophylaxis is not considered necessary. Travel after surgery was reviewed. The patient has not disclosed any travel plans during the first 30 days after surgery and they have been advised that within the first 30 days after surgery any bus, plane, train or car travel over 2 hours in duration is contraindicated due to the possibility of developing blood clots from immobility. Any travel, needs to include periods of ambulation of 10 minutes in duration every 2 hours. Patient was instructed to discuss any plans for travel during this period with their bariatric surgeon. 13. Use your CPAP daily and bring it to the hospital with your mask 14. As of tomorrow, please check your blood pressure daily in the morning. If your blood pressure is: Below 120/70: do not take the Nifedipine 121/71 to 130/80: take HALF Nifedipine Over 140/90: take one Nifedipine 15. Please take at the day of surgery the following medications: 16. Stop any control pills and don't use them for one month after surgery 17. Absolutely no smoking or vaping, or marijuana until the surgery and for at least the first 4 weeks. Only nicotine patches are allowed. 18. Send me weight measurements on Monday01/03/25 and 01/10/25 and then on Monday01/14/25, the day of surgery before you go to the hospital. 19. Avoid any steroids by mouth for any reason. Let me know if someone prescribes them to you 20. These instructions supersede anything else you read in the handbook, anything you watched in videos or classes or you were told by any other provider. If there is any conflict, you follow the above instructions and nothing else. Orders: Orders Type and Screen Today E03.9 - Hypothyroidism, unspecified, E11.9 - Type 2 diabetes mellitus without complications, E66.9 - Obesity, unspecified, I10 - Essential (primary) hypertension Lipid Panel Today E03.9 - Hypothyroidism, unspecified, E11.9 - Type 2 diabetes mellitus without complications, E66.9 - Obesity, unspecified, I10 - Essential (primary) hypertension Hemoglobin A1c Today E03.9 - Hypothyroidism, unspecified, E11.9 - Type 2 diabetes mellitus without complications, E66.9 - Obesity, unspecified, I10 - Essential (primary) hypertension Comprehensive Met. Panel Today E03.9 - Hypothyroidism, unspecified, E11.9 - Type 2 diabetes mellitus without complications, E66.9 - Obesity, unspecified, I10 - Essential (primary) hypertension TSH reflex Free T4 Today E03.9 - Hypothyroidism, unspecified, E11.9 - Type 2 diabetes mellitus without complications, E66.9 - Obesity, unspecified, I10 - Essential (primary) hypertension Prothrombin Time INR Today E03.9 - Hypothyroidism, unspecified, E11.9 - Type 2 diabetes mellitus without complications, E66.9 - Obesity, unspecified, I10 - Essential (primary) hypertension Partial Thromboplastin Time Today E03.9 - Hypothyroidism, unspecified, E11.9 - Type 2 diabetes mellitus without complications, E66.9 - Obesity, unspecified, I10 - Essential (primary) hypertension Complete Blood Count Auto Diff Today E03.9 - Hypothyroidism, unspecified, E11.9 - Type 2 diabetes mellitus without complications, E66.9 - Obesity, unspecified, I10 - Essential (primary) hypertension Insulin Today E03.9 - Hypothyroidism, unspecified, E11.9 - Type 2 diabetes mellitus without complications, E66.9 - Obesity, unspecified, I10 - Essential (primary) hypertension C Reactive Protein Today E03.9 - Hypothyroidism, unspecified, E11.9 - Type 2 diabetes mellitus without complications, E66.9 - Obesity, unspecified, I10 - Essential (primary) hypertension Medications: New sucralfate 10 mL PO BID 600 mL 2RF K21.9 - Gastro-esophageal reflux disease without esophagitis pantoprazole 40 mg PO DAILY 90 tabs 0RF K21.9 - Gastro-esophageal reflux disease without esophagitis ondansetron Only take one every 12 hours as needed if you have nausea 4 mg PO Q12H 20 tabs 0RF nausea and vomiting R11.0 - Nausea polyethylene glycol 3350 Mix each measuring cup with 8oz of water, Crystal light, or Gatorade zero, or Propel and do 7 measuring cups on 01/12/25 and another 7 measuring cups on 01/13/25 17 grams PO DAILY 238 grams 0RF Z01.818 - Encounter for other preprocedural examination
[2024-12-31 09:20] VITALS: BMI 33.9
== END 2024-12-31 09:46 | disposition home or self-care (01) ==
LOC: HO.HBS 08:05
PROVIDERS: PCP Internal Medicine; Visit Provider Surgery
DX: E66.9 Obesity, unspecified (principal)
CPT/HCPCS: 99214

== ENCOUNTER → 2024-12-31 08:05 | Outpatient (BNVA) | payer MEDICAID, SELFPAY | PROVIDERS: PCP Internal Medicine; Visit Provider Surgery ==

== ENCOUNTER → 2025-01-10 08:37 | Outpatient (BNVA) | payer MEDICAID, SELFPAY | PROVIDERS: PCP Internal Medicine; Visit Provider Physician Assistant Surgical ==

== ENCOUNTER 2025-01-14 06:15 | Inpatient (IN) | payer MEDICAID, SELFPAY ==
[2025-01-01 10:52] VITALS: BMI 33.9
[2025-01-10 07:11] LABS: MANUAL DIFF FLAG NO
[2025-01-10 07:40] LABS: Basophils Percent Auto 0.4 % (0-2); Eosinophils Absolute Auto 0.2 X10*3/uL (0.0-0.4); Eosinophils Percent Auto 2.9 % (0-4); Hematocrit 34.9 % (37.0-47.0); Hemoglobin 11.1 g/dl (12.0-16.0); Imm Gran Abs Auto 0.01 X10*3/uL (0.00-0.03); Imm Gran Pct Auto 0.2 % (0.0-0.4); Lymphocytes Absolute Auto 1.6 X10*3/uL (1.2-4.9); Lymphocytes Percent Auto 29.1 % (20-40); Mean Corpuscular HGB Conc 31.8 g/dl (31.0-35.0); Mean Corpuscular Hemoglobin 25.8 pg (27.0-33.0); Mean Platelet Volume 11.2 fL (9.4-12.3); Monocytes Absolute Auto 0.3 X10*3/uL (0.1-1.2); Neutrophils Absolute Auto 3.4 x10*3/uL (2.0-8.3); Neutrophils Percent Auto 61.4 % (45-73); Platelet Count 269 X10*3/uL (160-400); Red Blood Count 4.31 X10*6/uL (4.20-5.50); Red Cell Distribution Width 15.7 % (11.0-16.0); White Blood Count 5.5 X10*3/uL (4.8-10.8)
[2025-01-10 07:46] LABS: INTERNATIONAL NORM RATIO 1.1 (0.9-1.1); Prothrombin Time 13.3 SEC (10.9-12.4)
[2025-01-10 07:48] LABS: Estimated Average Glucose 114 mg/dL; Hemoglobin A1C 112.0448 umol/L; Hemoglobin A1c % 5.6 % (<6.0); Total Hemoglobin (HGBA1C) 2964.0797 umol/L
[2025-01-10 07:49] LABS: Partial Thromboplastin Time 34.9 SEC (26.0-36.8)
[2025-01-10 08:13] LABS: Alanine Aminotransferase 13 U/L (0-31); Albumin Level 4.3 g/dL (3.5-5.0); Alkaline Phosphatase 64 U/L (39-117); Anion Gap 15 (12-20); Aspartate Amino Transferase 18 U/L (5-31); Bilirubin Total 0.7 mg/dL (0.0-1.0); Blood Urea Nitrogen 12 mg/dL (9-16); C Reactive Protein 0.19 mg/dL (< or = 0.50); Carbon Dioxide 21 mmol/L (22-29); Chloride 103 mmol/L (96-108); Cholesterol 192 mg/dL (<200); Creatinine Clr Calc Pharmacy 102.3; Estimated Glomerular Filt Rate > 60; Glucose Random 89 mg/dL (60-115); HDL Cholesterol 37 mg/dL (>40); LDL Cholesterol Calculated 141 mg/dL (<100); Potassium 3.3 mmol/L (3.3-5.1); Sodium 136 mmol/L (135-145); Total Protein 7.9 g/dL (6.5-8.0); Triglycerides 73 mg/dL (<150)
[2025-01-10 08:29] LABS: TSH reflex Free T4 2.85 uIU/mL (0.32-4.0)
[2025-01-10 08:42] LABS: Insulin 5 uU/mL (2-29)
--- NOTE | 2025-01-13 10:19 | HO.ANESPROP2 ---
Documented by User: Fawn Wallis NP 01/13/25 10:20 HPI - Anesthesia Eval Consult details Narrative: 39yo F for Gastrectomy Sleeve - EGD, possible diaphragmatic hernia, possible ventral hernia, possible open PMFSH Active Problems Active Problems: All Active Problems Vitamin A deficiency (Acute) Vitamin D deficiency (Acute) Sleep apnea (Acute) BMI 37.0-37.9, adult (Acute) Excessive daytime sleepiness (Acute) Pelvic floor weakness (Acute) Encounter for IUD removal (Acute) Abnormal uterine bleeding (Acute) Cervical cancer screening (Acute) Prediabetes (Acute) IUD check up (Acute) Encounter for IUD insertion (Acute) KELL (obstructive sleep apnea) (Acute) Chronic diarrhea (Acute) Mastodynia of left breast (Acute) Abnormal thyroid blood test (Acute) ASCUS with positive high risk HPV (Acute) Left breast lump (Acute) Amenorrhea (Acute) Well woman exam (Acute) Family planning (Acute) Anemia (Acute) Asthma (Acute) Non-insulin dependent type 2 diabetes mellitus (Acute) Sleep apnea treated with continuous positive airway pressure (CPAP) (Acute) Hypothyroidism (Acute) Obesity (BMI 30-39.9) (Acute) Supraumbilical hernia (Acute) History of umbilical hernia repair (Acute 05/13/19) HTN (hypertension) (Acute) Diastasis recti (Acute) Past Medical History Medical History Hx of transfusion of packed red blood cells Migraine Seizures Non-insulin dependent type 2 diabetes mellitus Sleep apnea treated with continuous positive airway pressure (CPAP) Hypothyroidism Elevated cholesterol Obesity (BMI 30-39.9) Supraumbilical hernia HTN (hypertension) Anemia History of hypothyroidism Diastasis recti Depression Asthma GERD (gastroesophageal reflux disease) Family History Family History Father No problems noted. Mother HTN (hypertension) Asthma Hyperthyroidism Diabetes Paternal Aunt Breast cancer Son Asthma Son Asthma ADHD Son Asthma Daughter Autism Family history of problems with anesthesia: No Surgical History Surgical History History of esophagogastroduodenoscopy (EGD) Hx of section History of umbilical hernia repair (05/13/19) History of Problems with Anesthesia: No Social History Social History Household Members: Spouse and Children Housing: Apartment Are you a primary career counselor to a significant other at home: No Do you presently have visiting nurse or other home services: No Alcohol intake: former Patient Tobacco Use Status: Never used Tobacco Use of substances other than those prescribed or required for medical reasons: No Have you been hit, kicked, punched, or otherwise hurt by someone within the past year? If so, by whom?: No Are you DNR?: No Advance Directives: No Advance Directives Information Provided: No Advance Directives on File: No Patient : No : No Poor oral hygiene: Yes (porcelain tooth) Sexual orientation: Straight/Heterosexual Gender identity: Female Meds Allergies Allergy/AdvReac Type Severity Reaction Status Date / Time latex [LATEX] Allergy Intermediate HANDS SWELL Verified 12/31/24 09:32 Home Medications ?Medication ?Instructions ?Recorded ?Confirmed ?Last Taken ?Type albuterol sulfate 90 mcg/actuation 2 puff inhalation Q4H PRN 06/17/21 01/14/25 Unknown History aerosol inhaler (ProAir HFA) Shortness Of Breath Or Wheezing levothyroxine 137 mcg tablet 137 mcg PO QAM 02/09/23 01/14/25 01/13/25 History nifedipine 60 mg tablet,extended 60 mg PO QAM 06/13/24 01/14/25 01/13/25 History release metformin 500 mg tablet 500 mg PO BID 09/12/24 01/14/25 01/13/25 History Exam Height,Weight and Vital Signs: Height 4 ft 11 in Weight 76.204 kg Pertinent Lab Results Pertinent Lab Results: Laboratory Tests 01/10/25 07:08 WBC 5.5 RBC 4.31 Hgb 11.1 L Hct 34.9 L MCV 81.0 MCH 25.8 L MCHC 31.8 RDW 15.7 Plt Count 269 MPV 11.2 Immature Gran % (Auto) 0.2 Neut % (Auto) 61.4 Lymph % (Auto) 29.1 [place] % (Auto) 6.0 Eos % (Auto) 2.9 Baso % (Auto) 0.4 Lymph # (Auto) 1.6 [place] # (Auto) 0.3 Eos # (Auto) 0.2 Baso # (Auto) 0.0 Abs Immat Gran (auto) 0.01 Absolute Neuts (auto) 3.4 Absolute Nucleated RBC 0.000 Nucleated RBC % (auto) 0.0 PT 13.3 H INR 1.1 APTT 34.9 Sodium 136 Potassium 3.3 Chloride 103 Carbon Dioxide 21 L Anion Gap 15 BUN 12 Creatinine 0.67 Estim Creat Clear Calc 102.3 Estimated GFR > 60 Random Glucose 89 Estimat Average Glucose 114 Hemoglobin A1c % 5.6 Insulin Level 5 Calcium 9.0 Total Bilirubin 0.7 AST 18 ALT 13 Alkaline Phosphatase 64 C-Reactive Protein 0.19 Total Protein 7.9 Albumin 4.3 Triglycerides 73 Cholesterol 192 LDL Cholesterol, Calc 141 H HDL Cholesterol 37 L TSH 2.85 Narrative Narrative: EKG 12/03/24 Vent. Rate : 76 BPM Atrial Rate : 76 BPM P-R Int : 126 ms QRS Dur : 84 ms QT Int : 410 ms P-R-T Axes : 14 55 9 degrees QTcB Int : 461 ms Normal sinus rhythm Normal ECG When compared with ECG of 03-Mar-2023 21:25, No significant change was found Assessment and Plan Assessment Anesthesia Assessment: Chart Reviewed Final Anesthetic Review Family History of Problems with Anesthesia: No History of Problems with Anesthesia: No Documented by User: Ashley Greenwood MD 01/14/25 08:06 [facility] Past Medical History Medical History Hx of transfusion of packed red blood cells Migraine Seizures Non-insulin dependent type 2 diabetes mellitus Sleep apnea treated with continuous positive airway pressure (CPAP) Hypothyroidism Elevated cholesterol Obesity (BMI 30-39.9) Supraumbilical hernia HTN (hypertension) Anemia History of hypothyroidism Diastasis recti Depression Asthma GERD (gastroesophageal reflux disease) Family History Family History Father No problems noted. Mother HTN (hypertension) Asthma Hyperthyroidism Diabetes Paternal Aunt Breast cancer Son Asthma Son Asthma ADHD Son Asthma Daughter Autism Surgical History Surgical History History of esophagogastroduodenoscopy (EGD) Hx of section History of umbilical hernia repair (05/13/19) Social History Social History Household Members: Spouse and Children Housing: Apartment Are you a primary career counselor to a significant other at home: No Do you presently have visiting nurse or other home services: No Alcohol intake: former Patient Tobacco Use Status: Never used Tobacco Use of substances other than those prescribed or required for medical reasons: No Have you been hit, kicked, punched, or otherwise hurt by someone within the past year? If so, by whom?: No Are you DNR?: No Advance Directives: No Advance Directives Information Provided: No Advance Directives on File: No Patient : No : No Poor oral hygiene: Yes (porcelain tooth) Sexual orientation: Straight/Heterosexual Gender identity: Female Meds Allergies Allergy/AdvReac Type Severity Reaction Status Date / Time latex [LATEX] Allergy Intermediate HANDS SWELL Verified 12/31/24 09:32 Home Medications ?Medication ?Instructions ?Recorded ?Confirmed ?Last Taken ?Type albuterol sulfate 90 mcg/actuation 2 puff inhalation Q4H PRN 06/17/21 01/14/25 Unknown History aerosol inhaler (ProAir HFA) Shortness Of Breath Or Wheezing levothyroxine 137 mcg tablet 137 mcg PO QAM 02/09/23 01/14/25 01/13/25 History nifedipine 60 mg tablet,extended 60 mg PO QAM 06/13/24 01/14/25 01/13/25 History release metformin 500 mg tablet 500 mg PO BID 09/12/24 01/14/25 01/13/25 History Exam Pertinent Lab Results Pertinent Lab Results: nLaboratory Tests 01/10/25 07:08 WBC 5.5 RBC 4.31 Hgb 11.1 L Hct 34.9 L MCV 81.0 MCH 25.8 L MCHC 31.8 RDW 15.7 Plt Count 269 MPV 11.2 Immature Gran % (Auto) 0.2 Neut % (Auto) 61.4 Lymph % (Auto) 29.1 [place] % (Auto) 6.0 Eos % (Auto) 2.9 Baso % (Auto) 0.4 Lymph # (Auto) 1.6 [place] # (Auto) 0.3 Eos # (Auto) 0.2 Baso # (Auto) 0.0 Abs Immat Gran (auto) 0.01 Absolute Neuts (auto) 3.4 Absolute Nucleated RBC 0.000 Nucleated RBC % (auto) 0.0 PT 13.3 H INR 1.1 APTT 34.9 Sodium 136 Potassium 3.3 Chloride 103 Carbon Dioxide 21 L Anion Gap 15 BUN 12 Creatinine 0.67 Estim Creat Clear Calc 102.3 Estimated GFR > 60 Random Glucose 89 Estimat Average Glucose 114 Hemoglobin A1c % 5.6 Insulin Level 5 Calcium 9.0 Total Bilirubin 0.7 AST 18 ALT 13 Alkaline Phosphatase 64 C-Reactive Protein 0.19 Total Protein 7.9 Albumin 4.3 Triglycerides 73 Cholesterol 192 LDL Cholesterol, Calc 141 H HDL Cholesterol 37 L TSH 2.85 Airway Mallampati Class: II TM Dist: >3cm Neck ROM: Full Loose/Missing/Broken Teeth: No Heart: RRR Lungs: CTA Assessment and Plan Assessment Anesthesia Assessment: Anesthesia Plan Discussed Final Anesthetic Review NPO: Yes ASA Class: III Final Preanesthetic Review: Meds/Allgs Chart Reviewed, Consent Obtained/Reviewed and Anes Risks/Benef Reviewed Patient Risk: Intermediate Procedure Risk: Intermediate Anesthetic Plan Anesthetic Plan: GA Disposition: Standard PACU
[2025-01-14] VITALS (17 sets, daily range): BP systolic 115–175; BP diastolic 59–108; PULSE 69–106; RESP 16–20; TEMP 36–37.3; O2SAT 90–100; BMI 33.3; BMI 38.7
--- OUTSIDE RECORDS SUMMARY | 2025-01-14 06:26 | XMS_ITS | Clinical Summary ---
Author Organization [facility] ity Address [address] [place] [address] Care Team Providers Care Office Coordinator Receptionist Name Role Phone Unavailable Primary Care Provider [...]
[2025-01-14 06:38] LABS: UPreg QC Valid YES; Urine Pregnancy NEGATIVE (NEGATIVE)
[2025-01-14] MEDS: Lactated Ringers 1,000 ML 999 ML IV (06:50)
[2025-01-14 07:03] LABS: Glucose, Whole Blood 110 mg/dL (60-115)
[2025-01-14] MEDS: Aprepitant 32 MG/4.4 ML VIAL IVPUSH (07:14)
--- NOTE | 2025-01-14 07:32 | MHC.SHP ---
Pre-Procedural Eval Section A - 24 Hr Update-Section A only Date of Service: 01/14/25 The patient is an INPATIENT: Yes The patient has been examined within 24 hours of the surgical procedure. The History & Physical has been completed within 30 days and I have reviewed it.: Yes Section B - Complete if H&P > 30 days Chief Complaint: Obesity Relevant Family History (Specify if Yes): No Relevant Social History: None Present Medications: None Medical History: No relevant PMH History of Previous Operations: No relevant previous surgery Allergies: Allergies Allergy/AdvReac Type Severity Reaction Status Date / Time latex [LATEX] Allergy Intermediate HANDS SWELL Verified 12/31/24 09:32 Review of Systems Sugical H&P ROS: Negative: Constitution, Cardiovascular, Respiratory, Neurological, Psychiatric, Hem-Onc, Allergic/Immunologic, Gastrointestinal, Genitourinary, Musculoskeletal, Integumentary, Endocrine and Eyes/Ears/Nose/Throat Exam Surgical H&P Exam: Normal: HEENT, Normal: Heart, Normal: Lungs, Normal: Extremities, Normal: Abdomen, Normal: Skin and Normal: Neurological Plan Diagnosis/Plan: Unchanged I have reviewed the history and physical and performed a pertinent physical examination on my patient. No changes have occurred unless specified. Time Spent With Patient Time: Total time managing care of this patient today ____ minutes.
--- NOTE | 2025-01-14 07:33 | P.BOP_ITS ---
Brief Operative Note Date of Service: 01/14/25 Pre-op diagnosis: Severe obesity with comorbidities (see below) Post-op diagnosis: same (& severe hepatomegaly) Procedure: INITIAL PATIENT BMI ON PRESENTATION AT OUR OFFICE: 37.9 kg/m2 LAST BMI BEFORE SURGERY: 33.7 kg/m2 COMORBIDITIES: sleep apnea on CPAP, hypertension, non-insulin dependent diabetes, asthma, hypothyroidism, liver steatosis ?The patient presented to the Weight Management Program with significant obesity that was negatively impacting the patient's comorbidities as listed above.? The program is a phased program with a special focus on preoperative medical weight management to promote substantial weight loss and prepare the patients for the second phase of the program: bariatric surgery. The patient participated in an intensive weekly lifestyle ?intervention and exercise program during which the patient ?has lost between the initial office visit and the last preoperative visit 22.5lbs, or 12% of initial actual body weight. It was deemed appropriate for the patient to now have bariatric surgery. In light of the current Covid-19 pandemic and the well documented strong association of obesity and increased risk of worse outcomes if infected with Covid-19 (REFERENCES: https://pubmed.ncbi.nlm.nih.gov/86362518/ ,? https://pubmed.ncbi.nlm.nih.gov/70682091/ ), any delay in undergoing bariatric surgery may lead to the patient's worsening health condition and increased?risk of more severe Covid-19 disease if infected. In addition a recent?study from [facility] published in [employer] on 08/30/2021 ([email or web address]) found that, among patients with obesity, substantial weight loss achieved with surgery was associated with improved outcomes of COVID-19 infection. The findings suggest that obesity can be a modifiable risk factor for the severity of COVID-19 infection. In addition, the patient met the BMI-criteria for bariatric surgery based on the BMI on initial presentation. The patient should not be penalized for achieving such weight loss because ?it is not sustainable long-term without surgical intervention and it was achieved in preparation for bariatric surgery ?under my direction and based on my published research ([email or web address]).[email or web address] and? https://www.soard.org/article/[email or web address](13)60093-X/pdf ) ?that a 10% preoperative weight loss improves long-term weight loss after surgery and reduces perioperative complications.? Insurance carriers such as [facility] have e ndorsed my recommendations ?and have included in their policies criteria to include a 10% preoperative weight loss requirement. PROCEDURE: Esophago-gastroscopy, laparoscopic sleeve gastrectomy and la paroscopic gastropexy INDICATIONS: This is a 39 year-old female who was electively scheduled for laparoscopic, possibly open sleeve gastrectomy. The risks and complications of the procedure were discussed with the patient in advance, particularly the possibility of ; pulmonary embolism; staple line leak; bleeding; GERD; cardiac, pulmonary, or renal complications; as well as long-term problems such as insufficient weight loss, vitamin deficiency, strictures, or ulcers. The patient understood all the risks, and was in agreement to proceed with surgery. DESCRIPTION OF PROCEDURE: After informed consent was obtained from the patient, the patient was given preoperative antibiotics, and was transferred to the operating room. After successful induction of general anesthesia, pneumatic compression devices were placed on both lower extremities. An upper endoscopy was performed next. The oropharynx and esophagus appeared to be within normal limits. There was no diaphragmatic hernia present. The stomach was entered. Then after all fluid and air were suctioned and the stomach was fully decompressed, the scope was withdrawn and secured in the mid esophagus. The patient was then prepped and draped in the usual sterile manner, and abdominal access was established at the right upper quadrant with the Maia technique. A 12 mm blunt port was inserted, and the abdomen was insufflated with CO2 to a pressure of 15 mmHg. Under direct visualization, additional ports were placed, specifically two 5 mm Versi-step ports to the left upper quadrant, and a 5 mm Versi-Step port to the right upper quadrant. 1% lidocaine plain was used to infiltrate all port sites as well as all fascia defects. Following that, the patient was placed in a steep reverse Trendelenburg position. An additional 5 mm port was placed to the right flank for the Mediflex retractor that was used to retract the left lobe of the liver. The liver was severely enlarged and made exposure in the hiatal area challenging. The gastro-esophageal fat pad was opened with the ultrasonic device (Thunderbeat, Olympus) and the anterior esophagus and hiatus were exposed. The angle of His was opened with the ultrasonic device the fundus of the stomach from any diaphragmatic and splenic attachments. I then opened the gastrocolic ligament between the transverse colon and the greater curvature of the stomach with the ultrasonic device to enter the lesser sac and facilitate the ligation of the short gastric vessels. I started at a mid-point along the greater curvature and using the Thunderbeat, all short gastric vessels were divided all the way to the angle of His until the left blake was completely dissected at its entirety. I then divided the gastro-colic ligament distally to a distance of about 3-4 cm proximal to the pylorus.? The stomach was then divided transversely with three Endo GIOVANY-45 purple and three GIOVANY-60 articulating purple loads using the TwoChopIA stapler and loads. Every effort was made that the gastric sleeve had a tubular shape and an even caliber throughout. Once the sleeve resection was completed, the staple line of the gastric sleeve was reinforced with Hemoclips. The resected stomach was retrieved without difficulty from the Maia port. A gastropexy was then performed in order to prevent postoperative GERD and partial gastric volvulus. Several interrupted 2.0 Surgidac sutures were placed between the sleeve's staple line and the previously divided greater omentum and gastro-colic ligament using the Endo-Stitch device. ?An upper endoscopy was performed. There was no narrowing at the GE junction. The scope was easily advanced all the way to the pylorus which was clearly visualized. There was no narrowing anywhere and the sleeve's caliber was even throughout. The sleeve's staple line was inspected and there was no evidence of ischemia, bleeding or dehiscence. At that point the gastroscope was withdrawn from the patient?s mouth while we were decompressing the bowel and the stomach from any remaining air. I looked into the lesser sac to see how the sleeve was situating and it was situating well. There was no bleeding from the staple line, spleen, or short gastric vessels. The Mediflex retractor was removed, and the undersurface of the liver was inspected and there was no bleeding. The patient was placed in supine position. I closed the fascial defect of the 12 mm port site with a figure of eight #1 Polysorb suture. Then 30cc Ropivacaine plain with 10 mg of Dexamethasone were used to infiltrate the fascial closure as well as all skin incisions. At this po int, the abdomen was deflated, all ports were removed under direct vision, and no bleeding was noted from any of the port sites. The skin incisions were irrigated with saline and were closed with 4-0 absorbable monofilament sutures. Steri-Strips and OpSites were used to cover all incisions. The patient was extubated and was transferred in stable condition to the recovery room for further care. I was present and performed all schultz parts of the procedure. Mr. Carter was the advertising sales assistant. There were no residents to assist with this case. Jovon Caraballo MD, PhD, FACS Surgeon: Parmjit Caraballo MD Anesthesia: GETA, local and other (TAP block) Was an Retail Sales Consultant used for this Procedure?: No Retail Sales Consultant: Zain Carter Estimated blood loss (mL): 10 IV fluids (mL): 2,000 Urine output (mL): 0 (No Galvin to record output) Pathology: other (1) Stomach, 2) GEJ fat pad) Condition: stable Disposition: PACU
--- NOTE | 2025-01-14 07:38 | P.PNGS_ITS ---
Subjective Subjective Date of Service: 01/15/25 Interval history: Feels well. Mild incisional pain. She is tolerating phase 1 bariatric diet Physical Exam 2 Vital Signs: Vital Signs: Last Vital Signs Temp 97.4 F 01/14/25 06:20 Pulse 80 01/14/25 06:20 Resp 16 01/14/25 06:20 BP 140/93 H 01/14/25 06:20 Pulse Ox 98 01/14/25 06:20 O2 Del Method Room Air 01/14/25 06:20 BMI result Body Mass Index 33.3 GI: Inspection: Yes normal to inspection, Yes incision (clean, dry and intact) and Yes obesity Palpation (GI): Soft to palpation Extrem: Right lower extremity: normal to inspection (no calf tenderness) L eft lower extremity: normal to inspection (no calf tenderness) Objective Data Active Medications Lactated Ringer's (Lr) 1,000 mls @ 100 mls/hr IVCONT .Q10H EMMETT Lactated Ringer's (Lr) 1,000 mls @ 999 mls/hr IV .Q1H1M EMMETT Stop: 01/14/25 08:15 Last Admin: 01/14/25 06:50 Dose: 999 mls/hr Documented By: MANINDER Labs 01/15/25 05:30 01/15/25 05:30 Labs: Laboratory Results - last 24 hr 01/14/25 01/14/25 01/14/25 06:15 06:55 06:57 POC Glucose 110 Urine Test NEGATIVE Blood Type O Positive Antibody Screen NEGATIVE Procedures Date of Service Date of Service: 01/15/25 Progress Note: A&P Assessment and plan (1) Obesity (BMI 30-39.9): Status: Acute Assessment and Plan: s/p laparoscopic sleeve gastrectomy and gastropexy Doing well Will check am labs and if OK the patient will be discharged home (2) BMI 33.0-33.9,adult: Status: Acute (3) Non-insulin dependent type 2 diabetes mellitus: Status: Acute (4) HTN (hypertension): Status: Acute (5) Hypothyroidism: Status: Acute (6) Asthma: Status: Acute (7) Steatosis, liver: Status: Acute (8) S/P laparoscopic sleeve gastrectomy: Status: Acute (9) Hepatomegaly: Status: Acute Time Spent With Patient Time: Total time managing care of this patient today ____ minutes. Quality Stroke Does the patient have a stroke diagnosis?: No VTE Prior VTE?: No VTE Risk Level:: Medical - moderate - high VTE Device Contraindication: N/A - Device Ordered VTE Drug Contraindication: Treatment Not Indicated
[2025-01-14] MEDS: ceFAZolin Sodium/Dextrose,Iso 2 GM/50 ML PIGGYBACK IV ×2 (07:45→13:47)
[2025-01-14] MEDS: Acetaminophen 1,000 MG/100 ML PIGGYBACK 400 MG IV (09:20)
--- NOTE | 2025-01-14 10:02 | PM.DS ---
DS: Providers Provider Date of Service: 01/15/25 Date of admission: 01/14/25 06:15 Date of discharge: 01/15/25 Primary care physician: Sarah Galdamez MD DS: Diagnosis Discharge Diagnosis (1) Obesity (BMI 30-39.9): Status: Acute (2) BMI 33.0-33.9,adult: Status: Acute (3) Non-insulin dependent type 2 diabetes mellitus: Status: Acute (4) HTN (hypertension): Status: Acute (5) Hypothyroidism: Status: Acute (6) Asthma: Status: Acute (7) Steatosis, liver: Status: Acute DS: Summary Hospital Course Hospital Course: ADMITTING DIAGNOSIS: obesity, ritika, htn, hld, anemia, hypothyroid, asthma, dm ? DISCHARGE DIAGNOSIS: same, s/p laparoscopic sleeve gastrectomy ? PAST SURGICAL HISTORY: cesarian section, umbilical hernia ? PROCEDURE: upper endoscopy, laparoscopic sleeve gastrectomy ? DISCHARGE SUMMARY: ? History of Present Illness: ? The patient is a?39 year-old woman with a BMI of?37.9 kg/m2 and associated co-morbidities as described above. The patient had extensive work-up,lost?20.2 lbs preoperatively and was electively scheduled for laparoscopic, possible open sleeve gastrectomy and gastropexy. Risks and complications of the surgery were discussed with the patient in advance, particularly the possibility of , pulmonary embolism, anastomotic leak, bleeding, bowel injury, GERD, cardiac, renal or pulmonary complications. The patient understood all the risks and was in agreement with the surgical plan. ? Hospital Course: ? The patient underwent an uneventful laparoscopic sleeve gastrectomy with gastropexy on the day of admission. Postoperatively, the patient was transferred to the surgical floor. The patient received IV Acetaminophen and IV dilaudid for pain control. Patient was started on bariatric phase 1 diet POD #0. On postoperative day one, the patient was feeling well without nausea, vomiting, fevers, or tachycardia. The patient had some mild incisional pain and the abdomen was soft. ? On the morning of postoperative day one, the patient was continued on 1 ounce of water or ice every half hour. During the day, the patient did fairly well, having some incisional pain, but able to ambulate adequately and to tolerate liquids well. ? Since the patient is doing well, we decided that the patient was ready to be discharged. The patient was given instructions to follow-up with me next week and to call my office for any fever over 101, persistent abdominal pain, nausea, vomiting, GERD, symptoms of DVT such as calf tenderness, or leg swelling, or pulmonary embolism such as chest pain or shortness of breath. The patient was also instructed to drink 40-60 ounces of liquids per day using the 1-ounce cups. The patient had been given prescriptions for Tylenol for pain, Zofran prn for nausea, and pantoprazole and carafate previously. The patient was encouraged to ambulate and use the incentive spirometer. The patient was allowed to shower, but no baths, and encouraged to stay active at home. All of these instructions were given to the patient personally. All questions were answered and the patient understood all instructions, the instructions were also given to the patient in print. Time Attestation Total time managing care of this patient today: 25 mintues. Discharge Coordination Time (in mins): 25 Quality: Safe Use of Opioids Does Pt have an Active Cancer Diagnosis on the Problem List?: No Quality: Stroke Does the patient have a stroke diagnosis?: No Physical Exam Vital Signs: Vital Signs: Last Vital Signs Temp 97.4 F 01/14/25 06:20 Pulse 80 01/14/25 06:20 Resp 16 01/14/25 06:20 BP 140/93 H 01/14/25 06:20 Pulse Ox 98 01/14/25 06:20 O2 Del Method Room Air 01/14/25 06:20 BMI result Body Mass Index 33.3 DS: Data Data Completed and Pending Pending studies at discharge: Pending at discharge 01/14/25 09:10 Surgical [PTH] Routine Labs on day of discharge: Laboratory Results - last 24 hr 01/14/25 01/14/25 01/14/25 06:15 06:55 06:57 POC Glucose 110 Urine Test NEGATIVE Blood Type O Positive Antibody Screen NEGATIVE Discharge Plan Discharge Anticipated Discharge Date/Time: 01/15/25 10:00 Patient Disposition: Home, Self-Care Discharge Diagnosis: s/p laparoscopic sleeve gastrectomy Referrals: Sarah Bradley MD [Primary Care Provider] - 1 Week Discharge Medications: Continued Vitron-C 65 mg iron- 125 mg tablet,delayed release (DR/EC) 1 tab PO DAILY Qty: 90 0RF Rx Instructions: swallow whole; do not chew/break/dissolve/open albuterol sulfate [ProAir HFA] 90 mcg/actuation HFA aerosol inhaler 2 puff inhalation Q4H PRN (Reason: Shortness Of Breath Or Wheezing) levothyroxine 137 mcg tablet 137 mcg PO QAM pantoprazole 40 mg tablet,delayed release (DR/EC) 40 mg PO DAILY Qty: 90 0RF sucralfate 100 mg/mL suspension 10 ml PO BID Qty: 600 2RF ondansetron 4 mg tablet,disintegrating 4 mg PO Q12H Qty: 20 0RF Rx Instructions: Only take one every 12 hours as needed if you have nausea Held cholecalciferol (vitamin D3) 125 mcg (5,000 unit) capsule 125 mcg PO DAILY Qty: 90 0RF Hold Instructions: Resume on 01/29/25. nifedipine 60 mg tablet extended release 60 mg PO QAM Hold Instructions: Resume on 01/16/25. Check your blood pressure every morning as soon as you wake up and send it to Dr. Caraballo. Do no take the blood pressure medication if the blood pressure is below 120/70. Wait every day to hear back from Dr. Caraballo before you take the medication. Discontinued vitamin A palmitate 3,000 mcg (10,000 unit) capsule 10,000 unit PO DAILY Qty: 60 0RF metformin 500 mg tablet 500 mg PO BID Discharge Orders: Discharge Order (Routine); Ordered 01/15/25 Ordered By: Parmjit Caraballo Activity on Discharge: No heavy lifting Stand Alone Forms: Patient Portal Discharge page Print Language: Macedonian Care Plan Goals: weight loss Health Concerns: obesity Plan of Treatment: No tub baths, sex or returning to work until discussed at first post op appointment. No exercise, alcohol, tobacco or illegal drug use. Continue to use incentive spirometer hourly while awake. Walk in home for 5- 10 minutes every 2 hours during the first week. Follow all instructions in the bariatric handbook and call with any questions.Discharge Instructions 1. Please call your doctor or come back to the emergency room should any new symptoms arise. 2. You will receive a courtesy call from [facility] 24-48 hours after discharge. 3. Activity: abstain from alcohol, practice limited stair climbing, no bending, no driving, no exercise, no illicit substances, no lifting, no sex, no tub bath, no work. 4. Diet: continue as discussed with Dr. Caraballo. 5. Dressing Change/Wound Care: Your incision is covered by clear bandages and guaze underneath. If the area is tender, you may apply an ice pack for short intervals (no more than 20 minutes on, followed by at least 20 minutes off). Do not apply heat. Do not use creams, lotions, or topical antibiotics unless instructed to do so by your surgeon. These can cause infection or allergic reaction. 6. Call your doctor if: - Your temperature exceeds 101.5 F - You experience excessive pain or swelling - You have an unexpected reaction to medication - You have excessive bleeding - You experience continued vomiting/nausea - Your incision begins to separate - Your incision shows signs of infection such as increased redness, swelling, excessive pain, heat, or drainage (light blood or clear fluid is normal) 7. General instructions: No lifting greater than 5 lbs for 1 week and not more than 20lbs the next 3?weeks. No driving until seen at the office in 5-7 days after surgery. If you do not move your bowels in the next 2 days, please tell?Dr. Caraballo. Please walk around your home every hour or two to prevent blood clots from forming in your legs. You do not need to wake from sleeping to walk. Please sleep in a bed or couch to prevent kinking at the hips and knees. Please take your incentive spirometer (your lung voucher examiner) home with you and use it for the next few days to prevent pneumonia. You may shower, no hot tubs, baths or swimming pools.?Please follow the post op diet instructions you are?given by Dr Caraballo? and text me daily at 5-6pm for an update.?If you have any issues or concerns or questions please communicate this to him via text.? The Celebrate shakes have all of the bariatric vitamins you need if you consume these shakes. If you are drinking other protein shakes, you will need to purchase the Celebrate multivitamins and calcium that are available in the hospital gift shop on the first floor of the main hospital.??Do not take anything without first discussing with Dr Caraballo. Please make sure you are consuming at least 40 ounces of fluids per day starting the?day AFTER your discharge from the hospital. Always drink 1-2 ml per minute using the 5ml?syringe. If you drink faster you may experience?bloating,?gas pain, burping, nausea or heartburn. In that case please slow down your pace and use the syringe to?understand better the?proper?pace and volume of drinking. Do not hesitate to contact the office with any questions at . The patient's medical history has been reviewed and they are considered low risk for post op DVT and therefore DVT prophylaxis is not considered necessary. Travel after surgery was reviewed. The patient has not disclosed any travel plans during the first 30 days after surgery and they have been advised that within the first 30 days after surgery any bus, plane, train or car travel over 2 hours in duration is contraindicated due to the possibility of developing blood clots from immobility. Any travel, needs to include periods of ambulation of 10 minutes in duration every 2 hours.? The patient was instructed to discuss any plans for travel during this period with their bariatric surgeon. Assessment: stable s/p laparoscopic sleeve gastrectomy Discharge Date/Time: 01/15/25 09:02
[2025-01-14 10:37] LABS: Hematocrit 35.4 % (37.0-47.0); Hemoglobin 11.2 g/dl (12.0-16.0)
[2025-01-14 10:53] LABS: Anion Gap 12 (12-20); Blood Urea Nitrogen 9 mg/dL (9-16); Calcium 8.7 mg/dL (8.4-10.2); Carbon Dioxide 26 mmol/L (22-29); Chloride 104 mmol/L (96-108); Estimated Glomerular Filt Rate > 60; Glucose Random 166 mg/dL (60-115); Potassium 3.2 mmol/L (3.3-5.1); Sodium 139 mmol/L (135-145)
[2025-01-14] MEDS: Potassium Chloride/H20 10 MEQ/100 ML PIGGYBACK 100 MEQ IV ×2 (12:50→14:16)
[2025-01-14] MEDS: NIFEdipine ER 60 MG TAB.ER.24 PO (14:38)
--- NOTE | 2025-01-14 14:40 | PHA.MEDREC ---
Pharmacy Consult ? Medication Reconciliation Pharmacy has completed the medication reconciliation. Spoke to patient at bedside with help from teacher's aide services. Spouse was there and had patient med bottles, they were able to confirm meds and stated she had stopped taking phentermine.
[2025-01-14] MEDS: Acetaminophen 1,000 MG/100 ML PIGGYBACK 16.7 MG IV ×2 (15:26→21:05)
[2025-01-14] MEDS: KCl 20 mEq in 0.9 % Sodium ChL 20 MEQ/1,000 ML IV.SOLN 150 MEQ IVCONT ×2 (15:26→21:39)
[2025-01-14] MEDS: 0.9 % Sodium Chloride Flush 3 ML SYRINGE IVFLUSH ×2 (15:27→18:59)
[2025-01-14] MEDS: Metoclopramide HCl 10 MG/2 ML VIAL IVPUSH (17:23)
[2025-01-14] MEDS: ondansetron HCL 4 MG/2 ML VIAL IVPUSH (18:59)
[2025-01-14] MEDS: HYDROmorphone HCl 0.5 MG/0.5 ML SYRINGE 0.25 MG IVPUSH (21:51)
[2025-01-15] MEDS: Acetaminophen 1,000 MG/100 ML PIGGYBACK 16.7 MG IV (02:58)
[2025-01-15 03:21] VITALS: BP 143/92; PULSE 106; RESP 20; TEMP 37.2; O2SAT 97
[2025-01-15] MEDS: KCl 20 mEq in 0.9 % Sodium ChL 20 MEQ/1,000 ML IV.SOLN 150 MEQ IVCONT (04:17)
[2025-01-15 04:37] VITALS: PULSE 102
[2025-01-15] MEDS: Levothyroxine Sodium 112 MCG TABLET PO (05:41)
[2025-01-15] MEDS: Pantoprazole Sodium 40 MG/10 ML VIAL IVPUSH (05:41)
[2025-01-15] MEDS: Levothyroxine Sodium 25 MCG TABLET PO (05:41)
[2025-01-15 06:38] LABS: MANUAL DIFF FLAG NO
[2025-01-15 07:04] LABS: Anion Gap 13 (12-20); Blood Urea Nitrogen 5 mg/dL (9-16); Calcium 8.5 mg/dL (8.4-10.2); Carbon Dioxide 22 mmol/L (22-29); Chloride 106 mmol/L (96-108); Creatinine Clr Calc Pharmacy 127.2; Estimated Glomerular Filt Rate > 60; Glucose Random 103 mg/dL (60-115); Potassium 3.5 mmol/L (3.3-5.1); Sodium 137 mmol/L (135-145)
[2025-01-15 07:08] LABS: Basophils Percent Auto 0.2 % (0-2); Hematocrit 35.6 % (37.0-47.0); Hemoglobin 11.3 g/dl (12.0-16.0); Imm Gran Abs Auto 0.04 X10*3/uL (0.00-0.03); Imm Gran Pct Auto 0.3 % (0.0-0.4); Lymphocytes Absolute Auto 1.2 X10*3/uL (1.2-4.9); Lymphocytes Percent Auto 10.4 % (20-40); Mean Corpuscular HGB Conc 31.7 g/dl (31.0-35.0); Mean Corpuscular Hemoglobin 25.6 pg (27.0-33.0); Mean Corpuscular Volume 80.5 fL (80.0-98.0); Mean Platelet Volume 11.3 fL (9.4-12.3); Monocytes Absolute Auto 0.9 X10*3/uL (0.1-1.2); Monocytes Percent Auto 7.6 % (2-11); Neutrophils Absolute Auto 9.5 x10*3/uL (2.0-8.3); Neutrophils Percent Auto 81.5 % (45-73); Platelet Count 288 X10*3/uL (160-400); Red Blood Count 4.42 X10*6/uL (4.20-5.50); Red Cell Distribution Width 16.5 % (11.0-16.0); White Blood Count 11.7 X10*3/uL (4.8-10.8)
[2025-01-15] MEDS: NIFEdipine ER 60 MG TAB.ER.24 PO (07:25)
[2025-01-15 07:27] VITALS: BP 139/79; PULSE 95; RESP 20; TEMP 36.8; O2SAT 97
--- NOTE | 2025-01-15 09:14 | HO.POSTANES ---
Post Anesthesia Evaluation Post Anesthesia Evaluation Date of Service: 01/15/25 Vital Signs: Vital Signs Temp Pulse Resp BP Pulse Ox O2 Del Method 01/15/25 07:27 98.2 F 95 20 139/79 97 Room Air 01/15/25 04:37 102 H 01/15/25 03:21 98.9 F 106 H 20 143/92 H 97 CPAP 01/14/25 23:33 99.1 F 69 20 142/87 H 95 Room Air Anesthesia: General Endotracheal-GETA Mental Status: Awake Pain Control: Satisfactory Nausea/Vomiting: None Hydration: Adequate
--- NOTE | 2025-01-15 09:16 | MHC.CM.PN ---
Patient dc'd home self care via private transport prior to CM assessment.
== END 2025-01-15 09:02 | disposition home or self-care (01) | DRG 403 ==
LOC: HO.SSSA 06:24 → HO.S3 10:02
PROVIDERS: Nurse Practitioner; Physician Assistant Surgical; Admitting Provider Surgery; PCP Internal Medicine; Visit Provider Surgery
PROC: 0DB64Z3 Excision of Stomach, Percutaneous Endoscopic Approach, Vertical (ICD-10-PCS; CPT 43845; principal; 2025-01-14 07:30)
DX: E66.01 Morbid (severe) obesity due to excess calories (principal); K76.0 Fatty (change of) liver, not elsewhere classified; E03.9 Hypothyroidism, unspecified; E11.9 Type 2 diabetes mellitus without complications; Z68.33 Body mass index [BMI] 33.0-33.9, adult; G47.33 Obstructive sleep apnea (adult) (pediatric); I10 Essential (primary) hypertension; J45.909 Unspecified asthma, uncomplicated; Z79.890 Hormone replacement therapy; Z79.899 Other long term (current) drug therapy
CPT/HCPCS: 36415; 80048; 80053; 80061; 81025; 82947; 83036; 83525; 84443; 85014; 85018; 85025; 85610; 85730; 86140; 86850; 86900; 86901; 88304; 88305; 88307; 88313; 88341; 88342; A4649; C9145; J0131; J0690; J1100; J1171; J1610; J2003; J2250; J2371; J2405; J2470; J2704; J2765; J2795; J3010; J3480

== ENCOUNTER → 2025-01-14 06:15 | Outpatient (BNV) | payer MEDICAID, SELFPAY | PROVIDERS: Admitting Provider Surgery; PCP Internal Medicine; Visit Provider Surgery | DX: E66.9 Obesity, unspecified (principal); Z68.33 Body mass index [BMI] 33.0-33.9, adult; E11.9 Type 2 diabetes mellitus without complications; I10 Essential (primary) hypertension; E03.9 Hypothyroidism, unspecified; J45.909 Unspecified asthma, uncomplicated; K76.0 Fatty (change of) liver, not elsewhere classified; Z98.84 Bariatric surgery status; R16.0 Hepatomegaly, not elsewhere classified | CPT/HCPCS: 43659; 43775; 99024; 99499 ==

== ENCOUNTER 2025-01-22 08:52 | Outpatient (AMB) | payer MEDICAID, SELFPAY ==
--- NOTE | 2025-01-22 09:21 | A.OFFVIS_ITS ---
VS Expanded 01/22/25 09:57 BP 107/70 Blood Pressure Location Rt brachial Blood Pressure Position Sitting Pulse 92 Pulse Source Pulse Oximeter Temp 96.9 F Temperature Source Temporal Artery Scan Pulse Oximetry 99 Oxygen Delivery Method Room Air Height 4 ft 11 in Weight 159 lb BMI 32.1 Body Fat % 42.0 Body Fat Mass 66.8 Fat Free Mass 2.2 Visceral Fat Rating 8.0 Body Water % 41.5 Body Water Mass 66.0 Muscle Mass/Score 87.6 Basal Metabolic Rate/Score 1,314 Intake Visit Reasons: OV PO LSG 01/14/2025 Melter Supervisor Oxygen Furnace Required: Yes Melter Supervisor Oxygen Furnace Services: Melter Supervisor Oxygen Furnace Present Melter Supervisor Oxygen Furnace Name: hospital cmi Allergies latex [LATEX] Allergy (Intermediate, Verified 01/22/25 09:59) HANDS SWELL Medication List - Last Reconciled 01/22/25 by CHARU Santizo albuterol sulfate 90 mcg/actuation (ProAir HFA) 2 puffs inhalation Q4H PRN cholecalciferol (vitamin D3) 125 mcg PO DAILY iron,carbonyl-vitamin C 65 mg iron- 125 mg (Vitron-C) 1 tab PO DAILY levothyroxine 137 mcg PO QAM nifedipine ER 60 mg PO QAM pantoprazole 40 mg PO DAILY sucralfate 10 mL PO BID HPI Comments Details: Patient is a pleasant 39-year-old female who returns to the office today in follow-up. She is 8 days post sleeve gastrectomy performed on 01/14/2025. Patient is tolerating 3 celebrate rebuild shakes with 1 scoop each and proximally 40 oz of fluids. She has not yet moved her bowels but denies any abdominal pain. [facility] Medical History (Updated 01/18/25 @ 00:02 by Annetta Schaefer) BMI 37.0-37.9, adult Encounter for IUD removal Cervical cancer screening Prediabetes IUD check up Encounter for IUD insertion Left breast lump Well woman exam Family planning Hx of transfusion of packed red blood cells Migraine Seizures Non-insulin dependent type 2 diabetes mellitus Sleep apnea treated with continuous positive airway pressure (CPAP) Hypothyroidism Elevated cholesterol Obesity (BMI 30-39.9) Supraumbilical hernia HTN (hypertension) Anemia History of hypothyroidism Diastasis recti Depression Asthma GERD (gastroesophageal reflux disease) Surgical History (Updated 01/22/25 @ 09:58 by Guerline Shepherd CMA) S/P laparoscopic sleeve gastrectomy History of esophagogastroduodenoscopy (EGD) Hx of section History of umbilical hernia repair (05/13/19) Family History Father No problems noted. Mother HTN (hypertension) Asthma Hyperthyroidism Diabetes Paternal Aunt Breast cancer Son Asthma Son Asthma ADHD Son Asthma Daughter Autism Social History Household Members: Significant Other Housing: Apartment Are you a primary urgent care physician to a significant other at home: No Do you presently have visiting nurse or other home services: No Alcohol intake: former Patient Tobacco Use Status: Never used Tobacco Sexual orientation: Straight/Heterosexual Gender identity: Female Female Reproductive History Menstrual Age of Menarche: 13 Physical Exam GI Inspection: Yes incision (clean, dry, intact) Assessment & Plan Assessment & Plan (1) S/P laparoscopic sleeve gastrectomy: Code(s): Z98.84 - Bariatric surgery status Category: Surgical Plan: POD 8 s/p LSG on 01/14/[address] Caraballo Weight loss prior to surgery was 20.2 pounds or 10.7 % TBWL. Original weight on 09/20/2024 was 187.8 pounds and op weight was 167.6 pounds. Be sure to text Dr Caraballo exactly 1 week after surgery your weight from your home scale so he can adjust your meal plan. Continue meal plan until f/u omar Pittman in 2 weeks May shower, no submersion in bath for another week Continue abdominal binder with activity and exercise for the next 2 weeks. Exercise prior to surgery was treadmill and walking outside and may resume No abdominal exercises for 6 weeks post operatively Will be emailed link to post op video for review Reminded of the pace of drinking, 2 mL per minute, 1 oz/15 min. Medications: New docusate sodium (Colace) 100 mg PO BID 60 caps 0RF
[2025-01-22 09:57] VITALS: BP 107/70; PULSE 92; TEMP 36.1; O2SAT 99; BMI 32.1
--- OUTSIDE RECORDS SUMMARY | 2025-01-22 10:09 | XMS_ITS | Clinical Summary ---
Author Organization [employer] [facility] ity Address [address] [place] [address] Care Team Providers Care Senior Lead Software Engineer Name Role Phone Unavailable Primary Care Provider [...]
--- OUTSIDE RECORDS SUMMARY | 2025-01-22 10:09 | XMS_ITS | Encounter Summary ---
Author Organization [employer] Address [address] [place] [address] [address] [place] [address] Care Team Providers Care Backend Python Developer Name Role Phone Sarah Bradley MD Primary Care Provide r Bruce Cruz RN Unavailable [phone] Veronica Preston Unavailable Encounter Details Date Type Department Care Team (Latest Contact Info) Description 12/15/2020 Abstract [facility] CONVERSIONS Dental, Provider, DDS Social History [...] Description 01/29/2025 10:30 AM EDT Office Visit [facility] OPTOMETRY [address] [place] [address] NehemiasKaty izquierdo, OD [address] [place] [address] documented as of this encounter Visit Diagnoses Not on filedocumented in this encounter Care Teams Backend Python Developer Relationship Specialty Start Date End Date Sarah Bradley MD [address] [place] [address] PCP - General Family Medicine 06/22/18 Bruce Cruz, RN [address] [place] [address] [place] [address] Registered Nurse Family Medicine 01/15/25 Veronica Preston 01/15/25 Aisha Savage Counterintelligence AnalystHead Of Store Operations 04/11/24 documented as of this encounter
--- OUTSIDE RECORDS SUMMARY | 2025-01-22 10:09 | XMS_ITS | Clinical Summary ---
Author Organization [employer] Address [address] [facility] 7t [place] [address] Care Team Providers Care Stripper Shovel Operator Name Role Phone Sarah Bradley MD Primary Care Provide r Bruce Cruz RN Unavailable [phone] Veronica Preston Unavailable Allergies Active Allergy Reactions Criticality Noted Date Comments Latex 09/01/2022 Medications Alcohol Swabs ([facility] Prep) 70 % pads PLEASE USE DIRECTED FOR FOUR TIMES DAILY BLOOD GLUCOSE MONITORING IN 2 Active Aspirin Low Dose 81 MG EC tablet TAKE 2 TABLETS BY MOUTH EVERY DAY 2 Active Blood Glucose Monitoring Suppl ([employer]ik [place] Lite) w/Device kit TEST 4 TIMES A [...] (BMI) of 37.0 to 37.9 in adult (CMS/HCC) Take 1 capsule (15 mg) by mouth [...] Encounters Date Type Department Care Team Description 01/20/2025 Patient Outreach [facility] [address] [place] [address] Sarah Bradley MD 01/15/2025 Patient Outreach [facility] [address] [place] [address] Sarah Bradley MD Care Coordination (C3/CM Outreach) 01/15/2025 Patient Outreach [facility] [address] [place] [address] Sarah Bradley MD Care Coordination (C3/CM Chart Review) 01/15/2025 Patient Outreach [facility] [address] [place] [address] Sarah Bradley MD Care Coordination (C3- chart review) 01/15/2025 Patient Outreach [address] [address] Sarah Bradley MD 12/20/2024 Patient Outreach [address] [address] Sarah Bradley MD Pre-visit Planning (SDOH screening negative and tobacco screening negative) 12/05/2024 Orders Only [facility] External Provider, [employer] 12/03/2024 Orders Only GENERIC EXTERNAL DATA DEPARTMENT Provider, Generic External Data 11/25/2024 Orders Only GENERIC EXTERNAL DATA DEPARTMENT Provider, Generic External Data 11/15/2024 Population Health Risk Score [facility] (C3) Department [address] [place] [phone] Provider, Population Health Generic from Last 3 Months Immunizations Immunization Administration Dates Next Due Influenza injectable quadriv [...] Recorded Patient Health Questionnaire-2 Score 0 02/19/2024 Internet Access Answer Date Recorded Internet Access Q1 Yes 12/20/2024 Internet Access Q2 Not on file 12/20/2024 Comments No Sex and Gender Information Value [...] 10:30 AM EDT Office Visit [facility] [address] [place] [address] Katy Del Cid, OD [address] [place] [address] Health Maintenance Due Date Last Done Comments Disability Screening 1987 Alcohol/Substance Use Screening 1999 Family Planning (PISQ) 2002 Hepatitis A Vaccines (1 of 2 - Risk 2-dose series) 2006 Hepatitis B Vaccines (1 of 3 [...] 2024 , 11/12/2019, 06/22/2018, Additional history exists Depression Screening 02/18/2025 02/19/2024, 02/19/20 24 Tobacco Screening 05/21/2025 05/21/2024 Diabetes: Hemoglobin A1C 09/30/2025 025, 01/20/2023, 09/01/2020 SDOH Screening 12/20/2025 12/20/2024 Cervical Cancer Screening 02/21/2026 HPV/Cotest 02/21/2026 12/08/2021, 04/0 02/2022, 12/03/2020, Additional history exists Pap Smear 02/21/2026 02/21/2023, 06/2 , 12/09/2021, Additional history exists Lipid Panel 09/30/2029 [...] Procedure Name Priority Date/Time Associated Diagnosis Comments FL UPPER GI W AIR Routine 12/05/2024 9:5 8 AM EDT HEMATOXYLIN AND EOSIN STAIN Routine 12/03/2024 1:43 PM EDT HCG, QL, URINE Routine 12/03/2024 11:59 AM EDT GLUCOSE, RANDOM Routine 11/25/2024 8:49 AM EDT HEMOGLOBIN A1C Routine 09/30/2024 9:07 AM EST LIPID PANEL, STANDARD Routine 09/30/2024 9:07 AM EST BITEWINGS - [...] Recently Relevant to Health Maintenance Results * FL upper GI w air (12/05/2024 9:58 AM EDT) Anatomical Region Laterality Modality Body Radiographic Anai ging 12/05/2024 9:58 AM EDT Narrative 12/05/2024 11:03 AM EDT ? [employer] ?[address] [place] [address] ? Fluoroscopy Report ? Signed ? Patient: Sarah Sheikh I ?MR#: [id number] ?? [id number] ? : 1985 ?Acct:[id number] ? Age/Sex: 39 / F ?ADM Date: 12/05/24 ? Loc: HO.XRAY ? Attending Dr: Parmjit Caraballo MD ? Ordering Physician: Parmjit Caraballo MD ?? Date of Service: 12/05/24 ?? Procedure(s): FL upper GI w air ?? Accession Number(s): [id number] ? cc: Sarah Bradley MD; Parmjit Caraballo MD ? EXAMINATION: ?? XR FLUOROSCOPY UPPER GI SERIES ? CLINICAL INFORMATION: ?? Obesity, unspecified. Preoperative exam. No specific complaints. ? COMPARISON: ?? No prior. ? TECHNIQUE: ?? Fluoroscopic air contrast upper GI examination was performed utilizing ?? standard techniques with thin and thick barium and effervescent ?? granules. Numerous spot images were obtained. Several fluoroscopic ?? image hold cine sequences were also obtained. ? FINDINGS: ? UPPER GI SERIES: ?? Lateral cine images of the oropharynx and hypopharynx demonstrate ?? normal swallow mechanism with normal epiglottic inversion and soft ?? palate elevation. No laryngeal penetration, glottic or subglottic ?? aspiration identified. No nasopharyngeal reflux present. Hypopharyngeal ?? structures appear normal without evidence of mass or diverticulum. ?? There was mild cricopharyngeal achalasia. ? Dual and single contrast images of the esophagus demonstrate normal ?? caliber, contour, and mucosal pattern. No evidence of stricture, mass, ?? or ulcerations identified. Esophageal peristalsis was normal. ? No evidence of hiatus hernia identified. Normal GE junction. No ?? significant gastroesophageal reflux was seen during the course of the ?? examination and on reflux views. ? Dual contrast and single contrast images of the stomach demonstrated ?? somewhat elongated contour. There are multiple filling defects ?? intraluminally consistent with retained food. There were nonmobile ?? small filling defects in the fundus, body, and antrum, suggestive of ?? hyperplastic polyps. There is diffuse thickening of the area gastricae ?? consistent with gastritis. No gastric outlet obstruction. No concerning ?? masses or gross ulcerations. Contrast slowly passed into the gastric ?? antrum and duodenal bulb with mild delay. ? Single and air-contrast images of the duodenal bulb demonstrate no ?? abnormality. The duodenal sweep has a normal appearance, course, and ?? mucosal fold appearance. ? FLUOROSCOPY TIME: ?? 2 minutes, 42 seconds ? Number of Spot Images:12 ?? Number of cines obtained: 12 ? DOSE AREA PRODUCT: ?? 3878 uGy-m2 (microgray-meter squared) ? FL/FL upper GI w air ?? IMPRESSION: ?? 1. Mild cricopharyngeal achalasia. ?? 2. Somewhat elongated stomach with retained mobile food intraluminally, ?? raising concern for gastroparesis. Patient states last meal was prior ?? day. Mild delay of contrast passage into the duodenum. ?? 3. Multiple small mural filling defects within the stomach most likely ?? representing hyperplastic polyps. There is diffuse thickening of the ?? areae gastricae consistent with gastritis. ?? 4. No hiatus hernia and no definite gastroesophageal reflux noted ?? during the exam. ? Electronically signed by: ??Reji Martinez MD ??12/05/2024 11:00 AM EDT RP ? Dictated By: ?Reji Martinez MD ? Signed By: ?<Electronically signed by Reji Martinez MD in OV> ?12/05/24 1100 ? DD/ 0958 ? TD/TT: 12/05/24 1015 ? Sorter Pricer: ? Procedure Note Donotuseinterpreter, Image - 12/05/[address] [address] Fluoroscopy Report Signed Patient: Sarah Sheikh IMR#: [id number] : 1985Acct:[id number] Age/Sex: 39 / FADM Date: 12/05/24 Loc: [facility] Attending Dr: Parmjit Caraballo MD Ordering Physician: Parmjit Caraballo MD Date of Service: 12/05/24 Procedure(s): FL upper GI w air Accession Number(s): [id number] cc: Sarah Bradley MD; Parmjit Caraballo MD EXAMINATION: XR FLUOROSCOPY UPPER GI SERIES CLINICAL INFORMATION: Obesity, unspecified. Preoperative exam. No specific complaints. COMPARISON: No prior. TECHNIQUE: Fluoroscopic air contrast upper GI examination was performed utilizing standard techniques with thin and thick barium and effervescent granules. Numerous spot images were obtained. Several fluoroscopic image hold cine sequences were also obtained. FINDINGS: UPPER GI SERIES: Lateral cine images of the oropharynx and hypopharynx demonstrate normal swallow mechanism with normal epiglottic inversion and soft palate elevation. No laryngeal penetration, glottic or subglottic aspiration identified. No nasopharyngeal reflux present. Hypopharyngeal structures appear normal without evidence of mass or diverticulum. There was mild cricopharyngeal achalasia. Dual and single contrast images of the esophagus demonstrate normal caliber, contour, and mucosal pattern. No evidence of stricture, mass, or ulcerations identified. Esophageal peristalsis was normal. No evidence of hiatus hernia identified. Normal GE junction. No significant gastroesophageal reflux was seen during the course of the examination and on reflux views. Dual contrast and single contrast images of the stomach demonstrated somewhat elongated contour. There are multiple filling defects intraluminally consistent with retained food. There were nonmobile small filling defects in the fundus, body, and antrum, suggestive of hyperplastic polyps. There is diffuse thickening of the area gastricae consistent with gastritis. No gastric outlet obstruction. No concerning masses or gross ulcerations. Contrast slowly passed into the gastric antrum and duodenal bulb with mild delay. Single and air-contrast images of the duodenal bulb demonstrate no abnormality. The duodenal sweep has a normal appearance, course, and mucosal fold appearance. FLUOROSCOPY TIME: 2 minutes, 42 seconds Number of Spot Images:12 Number of cines obtained: 12 DOSE AREA PRODUCT: 3878 uGy-m2 (microgray-meter squared) FL/FL upper GI w air IMPRESSION: 1. Mild cricopharyngeal achalasia. 2. Somewhat elongated stomach with retained mobile food intraluminally, raising concern for gastroparesis. Patient states last meal was prior day. Mild delay of contrast passage into the duodenum. 3. Multiple small mural filling defects within the stomach most likely representing hyperplastic polyps. There is diffuse thickening of the areae gastricae consistent with gastritis. 4. No hiatus hernia and no definite gastroesophageal reflux noted during the exam. Electronically signed by: Rjei Martinez MD 12/05/2024 11:00 AM EDT Dictated By: Reji Martinez MD Signed By: <Electronically signed by Reji Martinez MD in OV> 12/05/24 1100 DD/ 0958 TD/TT: 12/05/24 1015 Sorter Pricer: [facility] Exter nal Provider IMG FLUOROSCOPY PROCEDURES Edited Result - Final * Hematoxylin and Eosin Stain (12/03/2024 1:43 PM EDT) 12/03/2024 1:43 PM EDT 12/03/2024 2:08 PM EDT [facility] - 12/05/2024 4:04 PM EDT ----- ------- Name: Sarah Sheikh I ?Age/Sex: 39/F ? : 1985 Unit#: [id number] ?? Attend Dr: Parmjit Caraballo MD ?Re12/03/24 ?Status: DEP SDC ? Location: HO.SSS ?Disch: ? ----- ------- SPEC : [id number] ? RECD: 12/03/24-7151 ? STATUS: ??SOUT ? REQ NUM: [id number] ? IRIS: 12/03/24-1343 ? SUBM DR: Parmjit Caraballo MD ? ENTERED: ??12/03/24-427 ?SP TYPE: Surgical ? OTHR DR: Sarah Bradley MD ? ORDERED: ??HE Stain/9, Gross Micro L4/4, IHC/2, Special st. 2/2, H. pylori/2, AB/PAS/2 ? Diagnosis ?? A. ??Stomach, antrum, biopsy: ??Antral-type mucosa with moderate chronic inactive ?? inflammation; no Helicobacter organisms seen. ? B. ??Stomach, fundus, biopsy: ??Oxyntic mucosa with moderate chronic active inflammation; ?? definitive Helicobacter organisms not seen. ? C. ??EG junction, biopsy: ?- Squamous epithelium within normal limits; no inflammation seen. ?- No glandular epithelium identified. ? D. ??Esophagus, biopsy: ??Focally active erosive esophagitis (neutrophils). ? Comment: The absence of H. pylori in part B is somewhat surprising given the degree of ?? inflammation. ??Consider alternative testing methods (as clinically appropriate). ?Clinical History Pre-Op Dx: ??Obesity Post-Op Dx: Normal EGD ?Microscopic Description A-D. ??Microscopic sections examined. ??No metaplastic changes are seen, supported by AB/PAS stains (A and B); no Helicobacter organisms are seen in A or B, supported by H. pylori immunostains ? Material Received ?? A. Antrum bx ?? B. Fundus bx ?? C. EG junction bx ?? D. Esophagus bx ? Gross Description Received in four parts. Part A: ??Received in formalin labeled antrum bx? is a 0.25 cm cano-pink irregular tissue fragment, submitted in toto in a cassette labeled A. Part B: ??Received in formalin labeled fundus bx? is a 0.25 cm cano-pink irregular tissue fragment, submitted in toto in a cassette labeled B. ? CONTINUED ON NEXT PAGE ----- ------- Name: Sarah Sheikh I ?Age/Sex: 39/F ? : 1985 Unit#: [id number] ?? Attend Dr: Parmjit Caraballo MD ?Re12/03/24 ?Status: DEP SDC ? Location: HO.SSS ?Disch: ? ----- ------- SPEC : [id number] ? RECD: 12/03/24-8246 ? STATUS: ??SOUT ? REQ NUM: [id number] ? IRIS: 12/03/24-3 ? SUBM DR: Parmjit Caraballo MD ? ENTERED: ??12/03/24-1411 ?SP TYPE: Surgical ? OTHR DR: Sarah Bradley MD ? ORDERED: ??HE Stain/9, Gross Micro L4/4, IHC/2, Special st. 2/2, H. pylori/2, AB/PAS/2 ? Gross Description ?(Continued) Part C: ??Received in formalin labeled ?EG junction bx? is a 0.2 cm cano-pink irregular tissue fragment, submitted in toto in a cassette labeled C. Part D: ??Received in formalin labeled esophagus bx? are 2 cano-pink irregular tissue fragments each measuring 0.25 cm, submitted in toto in a cassette labeled D. ??CEDS Special studies ordered and performed: Immunostain for H. pylori on A and B; AB/PAS stains on A and B Copies To: ?? Sarah Bradley MD ?? [facility] ?? [address] [facility] ?? [place] [address] ?? [phone] ?? Parmjit Caraballo MD ?? [facility] ?? [address] ?? [place] [address] ?? [phone] ----- ------- Signed (signature on file) Manuel Schmidt MD 12/05/24 2041 ? ----- ------- ? END OF REPORT ? us Generic External Data Provider LAB BLOOD ORDERAB LES Final Result [facility] [address] [place] [address] [phone] * HCG, Qualitative, Urine (12/03/2024 11:59 AM EDT) Urine NEGATIVE NEGATIVE [facility] Comment:This test was develo ped to detect early . Falsenegative results may occur after the 5th - 7th week ofpregnancy when using this test method. If clinicallyindicated, consider a serum hCG. 12/03/2024 11:5 9 AM EDT 12/03/2024 11:59 AM EDT us Generic External Data Provider LAB URINE ORDERAB LES Final Result [facility] [address] [place] [address] [phone] * Glucose, Random, Serum (11/25/2024 8:49 AM EDT) Glucose 115 60 - 115 mg/dL [facility] 11/25/2024 8:49 AM EDT 11/25/2024 8:49 AM EDT Generic External Data Provider LAB BLOOD ORDERAB LES Final Result Performing Organization Address City/[facility]/ZIP Co de Phone Number [facility] [address] [place] [phone] * Hemoglobin A1c (09/30/2024 9:07 AM EST) Hemoglobin A1c 5.9 <6.0 % [facility] Comment:Hemoglobin A1C Refer ence Range Adults: 4.8 - 6.0 % Non diabetic: < 6.0 % Goal: < 7.0 %Additional Action Suggested: > 8.0 %Note: Hemoglobin A1c results are invalid for patients with abnormal amounts of HbF. Blood transfusions may impact the HbA1c concentration in the patient sample. Estimated Average Glucose 123 mg/dL [facility] Comment:eAG = Estimated ave rage glucose which is %A1C expressed asaverage glucose, using the formula of the Z1X-QojmcadWmavptv Glucose study (ADAG), Diabetes Care, Vol.31,#8,Apr. 2007 09/30/2024 9:07 AM EST 09/30/2024 9:07 AM EST Generic External Data Provider LAB BLOOD ORDERAB LES Final Result Performing Organization Address City/[facility]/ZIP Co de Phone Number [facility] [address] [place] [phone] * (ABNORMAL) Lipid Panel, Standard (09/30/2024 9:07 AM EST) Triglycerides 150(H) <150 mg/dL [facility] Comment:Desirable Triglyceri de: less than 150 mg/dLBorderline High Triglyceride 150-199 mg/dLHigh Triglyceride: 200-499 mg/dLVery High Triglyceride: greater than or equal to 5OO mg/dL Cholesterol 170 <200 mg/dL [facility] Comment:Desirable Cholestero l: less than 200 mg/dLBorderline High Cholesterol: 200-239 mg/dLHigh Cholesterol: greater than 239 mg/dL LDL Cholesterol Calculated 101(H) <100 mg/dL [facility] Comment:Desirable LDL: less than 100 mg/dLNear Optimal/Above Optimal LDL: 110- 129 mg/dLBorderline High LDL: 130-159 mg/dLHigh LDL: 160-189 mg/dLVery High LDL: greater than or equal to 190 mg/dL HDL Cholesterol 39(L) >40 mg/dL [facility] Comment:Desirable HDL: great er than 40 mg/dL Note: This HDL assay may give artificially low results in patients with liver disease. 09/30/2024 9:07 AM EST 09/30/2024 9:07 AM EST Generic External Data Provider LAB BLOOD ORDERAB LES Final Result Performing Organization Address [facility]/ZIP Co de Phone Number [facility] [address] [place] [phone] * Hm Pap Smear (02/21/2023) Historical Provider HEALTH MAINTENANCE Final Result * HPV E6/E7 RFLX CLAIRE 16 18/45 (12/08/2021 10:43 AM EDT) Pathologist [facility] HPV mRNA E6/E7 rflx Not Detected Not Detected [facility] Comment: Methodology: Economic Forecaster-Mediated Amplification This assay detects E6/E7 viral messenger RNA (mRNA) from 14 high-risk HPV types (16,18,31,33,35,39,45,51,52,56,58,59,66,68). The analytical performance characteristics of this assay have been determined by [employer]. The modifications have not been cleared or approved by the FDA. This assay has been validated pursuant to the CLIA regulations and is used for clinical purposes. For additional information, please refer to http://education.Bababoo/faq/YZN949r7 (This link if provided for information/ educational purposes only.) THIS TEST WAS PERFORMED AT: [facility] [address] [place] [address],[address] [place], [place] ??[phone] KLAUS BRASHER MD 12/08/2021 10:4 3 AM EDT Laine Zamora HISTORICAL/NON ORDERABLE LABS Fi nal Result Performing Organization Address [facility]/Banner Number [facility] [place] [address], * HEPATITIS C ANTIBODY (11/16/2019 10:03 AM EDT) Pathologist [facility] HEPATITIS C ANTIBODY NONREACTIVE [facility] Comment: Antibodies to HCV not detected; does not exclude early acute HCV infection. 11/16/2019 10:0 3 AM EDT Laine Zamora HISTORICAL/NON ORDERABLE LABS Fi nal Result Performing Organization Address [facility] Phone Number [facility] [place] [address], * HIV AB/AG (11/16/2019 10:03 AM EDT) [facility] HIV AG/AB NONREACTIVE NR FOUNDATI ON LAB [...] detection of this assay. ?? The [employer] Dock Pumper HIV Ag/Ab Combo assay result and supplemental assay results should be interpreted in conjunction with the patient's clinical presentation, history and other laboratory results. ??If the results are inconsistent with clinical evidence, additional testing is suggested to confirm the result. 11/16/2019 10:0 3 AM EDT us Laine Zamora HISTORICAL/NON ORDERABLE LABS Fi nal Result Performing Organization Address City/State/[facility] Co de Phone Number [facility] [address] from Last 3 Months or Most Recently Relevant to Health Maintenance Insurance [facility] C3 DENTAL-[facility] MEDICAID STAND ADULT Care Teams Stripper Shovel Operator Relationship Specialty Start Date End Date Sarah Bradley MD [address] [place] [phone] PCP - General Family Medicine 06/22/18 Bruce Cruz, MIQUEL [address] [place] [address] Registered Nurse Family Medicine 01/15/25 Veronica Preston 01/15/25 Aisha Savage Compressor Station OperatorBalance Wheel Screw Hole Tapper 04/11/24
--- OUTSIDE RECORDS SUMMARY | 2025-01-22 10:09 | XMS_ITS | Encounter Summary ---
Author Organization [employer] Address [address] [facility] [address] [place] [address] Care Team Providers Care Print Graphic Designer Name Role Phone Sarah Bradley MD Primary Care Provide r Bruce Cruz RN Unavailable [phone] Veronica Preston Unavailable Encounter Details Date Type Department Care Team ([facility] st Contact Info) Description 01/20/2025 Patient Outreach [facility] [address] [place], [place] [phone] Sarah Bradley MD [address] [place] [address] Social History Tobacco Use Types Packs/Day Years [...] Description 01/29/2025 10:30 AM EDT Office Visit [facility] [address] [place] [address] Nehemias, Katy, OD [address] [place] [address] documented as of this encounter Visit Diagnoses Not on filedocumented in this encounter Additional Health Concerns Assessment Noted Time PHQ-9 Depression Total Score: 0 02/19/20 24 1:15 PM EDT documented as of this encounter Care Teams Print Graphic Designer Relationship Specialty Start Date End Date Sarah Bradley MD [address] [place] [address] PCP - General Family Medicine 06/22/18 Bruce Cruz, MIQUEL [address] [place] [address] Registered Nurse Family Medicine 01/15/25 Veronica Preston 01/15/25 Aisha Savage Hand StonerBusiness Solution Analyst 04/11/24 documented as of this encounter
--- OUTSIDE RECORDS SUMMARY | 2025-01-22 10:09 | XMS_ITS | Encounter Summary ---
Author Organization [employer] Address [address] [facility] [address] [place] [address] Care Team Providers Care Shell Plater Name Role Phone Sarah Bradley MD Primary Care Provide r Bruce Cruz RN Unavailable [phone] Veronica Preston Unavailable Encounter Details Date Type Department Care Team (Late Contact Info) Description 01/27/2023 Abstract [facility] [address] [place] [address] Sarah Bradley MD [address] [place] [address] Social History Tobacco Use Types Packs/Day Years [...] 01/29/2025 10:30 AM EDT Office Visit [facility] [address] [place] [address] Katy Del Cid, OD [address] [place] [address] documented as of this encounter Procedures Procedure [...] documented as of this encounter Care Teams Shell Plater Relationship Specialty Start Date End Date Sarah Bradley MD [address] [place], [place] [phone] PCP - General Family Medicine 06/22/18 Bruce Cruz, RN [address] [place] [address] Registered Nurse Family Medicine 01/15/25 Veronica Preston 01/15/25 Aisha Savage Inside SalesTax Evaluator 04/11/24 documented as of this encounter
--- OUTSIDE RECORDS SUMMARY | 2025-01-22 10:09 | XMS_ITS | Encounter Summary ---
Author Organization [employer] Address [address] 7[address] [place] [address] Care Team Providers Care Machine Maintenance Servicer Name Role Phone Sarah Bradley MD Primary Care Provide r Bruce Cruz RN Unavailable [phone] Veronica Preston Unavailable Reason for Visit * Reason Onset Date Comments PT1 03/22/2024 Encounter Details Date Type Department Care Team ([facility] st Contact Info) Description 03/22/2024 Telephone [facility] MEDICINE [address] [place], [place] [phone] Sarah Bradley MD [address] [place], [place] [phone] PT1 Social History Tobacco Use Types Packs/Day [...] name: [facility] Facility Address: [address] [place] [address] Escort needed: Y/N: No Do you have a wheelchair: Y/N: No If yes- Manual or electric: n/a Visits; all future visits documented in this encounter Plan of Treatment Upcoming Encounters Date Type Department Care Team (Late st Contact Info) Description 01/29/2025 10:30 AM EDT Office Visit [facility] OPTOMETRY [address] [place] [address] Nehemias, Katy, OD [address] [place] [address] documented as of this encounter Visit Diagnoses Not on filedocumented in this encounter Additional Health Concerns Assessment Noted Time PHQ-9 Depression Total Score: 0 02/19/20 24 1:15 PM EDT documented as of this encounter Care Teams Machine Maintenance Servicer Relationship Specialty Start Date End Date Sarah Bradley MD [address] [place] [address] PCP - General Family Medicine 06/22/18 Bruce Cruz, MIQUEL [address] [place] [address] Registered Nurse Family Medicine 01/15/25 Veronica Preston 01/15/25 Aisha Savage Sox AnalystStripper Color 04/11/24 documented as of this encounter
--- OUTSIDE RECORDS SUMMARY | 2025-01-22 10:09 | XMS_ITS | Encounter Summary ---
Author Organization [employer] Address [address] 7[address] [place] [address] Care Team Providers Care Computer Trainer Name Role Phone Sarah Bradley MD Primary Care Provide r Bruce Cruz RN Unavailable [phone] Veronica Preston Unavailable Encounter Details Date Type Department Care Team ([facility] st Contact Info) Description 07/26/[address] [facility] MEDICINE [address] [place] [address] Sarah Bradley MD [address] [place] [address] Social History Tobacco Use Types Packs/Day Years [...] 10:30 AM EDT Office Visit [facility] OPTOMETRY [address] [place] [address] Katy Del Cid, OD [address] [place] [address] documented as of this encounter Visit Diagnoses Not on filedocumented in this encounter Additional Health Concerns Assessment Noted Time PHQ-9 Depression Total Score: 0 02/19/20 24 1:15 PM EDT documented as of this encounter Care Teams Computer Trainer Relationship Specialty Start Date End Date Sarah Bradley MD [address] [place] [address] PCP - General Family Medicine 06/22/18 Bruce Cruz, MIQUEL [address] [place] [address] Registered Nurse Family Medicine 01/15/25 Veronica Preston 01/15/25 Aisha Savage Plating EngineerSenior Sql Database Developer 04/11/24 documented as of this encounter
--- OUTSIDE RECORDS SUMMARY | 2025-01-22 10:10 | XMS_ITS | Encounter Summary ---
Author Organization [employer] Address [address] 7[address] [place] [address] Care Team Providers Care Compound Specialist Name Role Phone Sarah Bradley MD Primary Care Provide r Bruce Cruz RN Unavailable [phone] Veronica Preston Unavailable Encounter Details Date Type Department Care Team ([facility] Contact Info) Description 03/22/2023 Orders Only [facility] MEDICINE [address] [place], [place] [phone] Provider, MD Yessi Social History Tobacco Use [...] Upcoming Encounters Date Type Department Care Team ([facility] Contact Info) Description 01/29/2025 10:30 AM EDT Office Visit [facility] OPTOMETRY [address] [place], [place] [phone] Katy Del Cid, OD [address] [place] [address] documented as of this encounter Procedures Procedure [...] documented as of this encounter Care Teams Compound Specialist Relationship Specialty Start Date End Date Sarah Bradley MD [address] [place], [place] [phone] PCP - General Family Medicine 06/22/18 Bruce Cruz, RN [address] [place] [address] Registered Nurse Family Medicine 01/15/25 Veronica Preston 01/15/25 Aisha Savage Satellite InstallerSponge Fisherman 04/11/24 documented as of this encounter
--- OUTSIDE RECORDS SUMMARY | 2025-01-22 10:10 | XMS_ITS ---
Author Organization [employer] Address [address] [facility] 7 [place] [address] Care Team Providers Care Curriculum Development Manager Name Role Phone Sarah Bradley MD Primary Care Provide r Bruce Cruz RN Unavailable [phone] Veronica Preston Unavailable CHW Complex Status:Outreach In Progress (Enrolling) Start date:01/15/2025 Enrollment reason:ADT Feed Overview ADT- Pt admitted to [facility] on 01/14/25. Case Team Name Relationship Phone Veronica Preston(Responsible Staff) [phone] Continued Care and Services Coordination
--- OUTSIDE RECORDS SUMMARY | 2025-01-22 10:10 | XMS_ITS ---
Author Organization [employer] Address [address] [facility] 7 [place] [address] Care Team Providers Care Student Loan Counselor Name Role Phone Sarah Bradley MD Primary Care Provide r Bruce Cruz RN Unavailable [phone] Veronica Preston Unavailable CM Complex Status:Outreach In Progress (Enrolling) Start date:01/15/2025 Enrollment reason:ADT Feed Overview ADT- Pt admitted [place] [facility] [place] 01[place]14[place]. Case Team Name Relationship Phone Bruce Cruz RN(Responsible Staff) Registered [facility] [phone] Continued Care and Services Coordination
--- OUTSIDE RECORDS SUMMARY | 2025-01-22 10:10 | XMS_ITS | Encounter Summary ---
Author Organization [email or web address] Address [address] [facility] 7t [place] [address] Care Team Providers Care Chalk Tester Name Role Phone Sarah Bradley MD Primary Care Provide r Bruce Cruz RN Unavailable [phone] Veronica Preston Unavailable Encounter Details Date Type Department Care Team (Late st Contact Info) Description 03/22/2023 Abstract [facility] MEDICINE [address] [place] [address] Sarah Bradley MD [address] [place] [address] Social History Tobacco Use Types Packs/Day Years [...] EDT Office Visit [facility] OPTOMETRY [address] [place], [place] [phone] Katy Del Cid, OD 230 [place] [address] documented as of this encounter Visit Diagnoses Not on filedocumented in this encounter Additional Health Concerns Assessment Noted Time PHQ-9 Depression Total Score: 0 01/18/20 23 10:22 AM EDT documented as of this encounter Care Teams Chalk Tester Relationship Specialty Start Date End Date Sarah Bradley MD [address] [place], [place] [phone] PCP - General Family Medicine 06/22/18 Bruce Cruz, RN [address] [place] [address] Registered Nurse Family Medicine 01/15/25 Veronica Preston 01/15/25 Aisha Savage Electromechanical AssemblerTooth Grinder 04/11/24 documented as of this encounter
--- OUTSIDE RECORDS SUMMARY | 2025-01-22 10:10 | XMS_ITS | Encounter Summary ---
Author Organization [employer] Address [address] [place] [address] 7t [place] [address] Care Team Providers Care Aerospace Technician Name Role Phone Sarah Bradley MD Primary Care Provide r Bruce Cruz RN Unavailable [phone] Veronica Preston Unavailable Encounter Details Date Type Department Care Team (Late Contact Info) Description 06/07/2023 Abstract [facility] MEDICINE [address] [place] [address] Sarah Bradley MD [address] [place] [address] Social History Tobacco Use Types Packs/Day Years [...] 01/29/2025 10:30 AM EDT Office Visit [facility] OPTOMETRY [address] [place] [address] Katy Del Cid, OD [address] [place] [address] documented as of this encounter Procedures Procedure [...] documented as of this encounter Care Teams Aerospace Technician Relationship Specialty Start Date End Date Sarah Bradley MD [address] [place] [address] PCP - General Family Medicine 06/22/18 Bruce Cruz, RN [address] [place] [address] Registered Nurse Family Medicine 01/15/25 Veronica Preston 01/15/25 Aisha Savage [employer] School PrincipalHide Dyer 04/11/24 documented as of this encounter
== END 2025-01-22 10:03 | disposition home or self-care (01) ==
LOC: HO.HBS 08:53
PROVIDERS: PCP Internal Medicine; Visit Provider Physician Assistant Surgical
DX: Z98.84 Bariatric surgery status (principal)
CPT/HCPCS: 99024

== ENCOUNTER → 2025-01-22 08:52 | Outpatient (BNVA) | payer MEDICAID, SELFPAY | PROVIDERS: PCP Internal Medicine; Visit Provider Physician Assistant Surgical | DX: Z98.84 Bariatric surgery status (principal) | CPT/HCPCS: 99212 ==

== ENCOUNTER 2025-01-23 09:29 | Outpatient (AMB) | payer OTHER, SELFPAY ==
--- NOTE | 2025-01-23 09:18 | MHC.WMTHER ---
Intake Intake Visit Reasons: TV PO LSG 01/14/25 Allergies latex [LATEX] Allergy (Intermediate, Verified 01/22/25 09:59) HANDS SWELL [facility] Medical History (Updated 01/18/25 @ 00:02 by Annetta Schaefer) BMI 37.0-37.9, adult Encounter for IUD removal Cervical cancer screening Prediabetes IUD check up Encounter for IUD insertion Left breast lump Well woman exam Family planning Hx of transfusion of packed red blood cells Migraine Seizures Non-insulin dependent type 2 diabetes mellitus Sleep apnea treated with continuous positive airway pressure (CPAP) Hypothyroidism Elevated cholesterol Obesity (BMI 30-39.9) Supraumbilical hernia HTN (hypertension) Anemia History of hypothyroidism Diastasis recti Depression Asthma GERD (gastroesophageal reflux disease) Surgical History (Updated 01/22/25 @ 09:58 by Guerline Shepherd CMA) S/P laparoscopic sleeve gastrectomy History of esophagogastroduodenoscopy (EGD) Hx of section History of umbilical hernia repair (05/13/19) Family History Father No problems noted. Mother HTN (hypertension) Asthma Hyperthyroidism Diabetes Paternal Aunt Breast cancer Son Asthma Son Asthma ADHD Son Asthma Daughter Autism Social History Household Members: Significant Other Housing: Apartment Are you a primary career transition specialist to a significant other at home: No Do you presently have visiting nurse or other home services: No Alcohol intake: former Patient Tobacco Use Status: Never used Tobacco Sexual orientation: Straight/Heterosexual Gender identity: Female Female Reproductive History Menstrual Age of Menarche: 13 Behavioral Health Assessment Weight Management Therapy Therapy Notes Details Subjective: PT had weight loss surgery on 01/14/2025, PT reports she is having a good recovery so far besides the first 2 first days that she was in pain and had some breathing issues. Her has been very supportive, also her aunt and a causing have been helping her. She is doing well in general, mood is stable, at times feeling down and guilty as she can do a lot of the home chores she used. Reports at times struggling when she has to cook to her children. Objective: PT presents for a post-op visit via Telehealth. Discussed functioning and recovery. Administered PHQ-9. Reflected on post-op adjustments, validated and normalized feelings. Provided mindfulness techniques to manage frustration around slow down and rest , and while cooking for her children. Worked in reframing thinking. Reminded to follow surgeon's meal/exercise plan instructions and not to make any changes on her own or start solids before is advised. Assessment/Response: Mental status: euthymic, tired but normal given recent surgery. functioning limitations per post-op guidelines. Risk reported/identified: None. Food/Weight/Diet Expectations of change PT started the program on 09/20/2024 at 187 lbs. Weight on surgery day 01/14/2025: 165Lbs PO weight 01/22/2025:159Lbs. PT's target weight: 115-120Lbs PT is implementing the following: Current meal plan: Liquid plan. 3 shakes (each 8oz and 1 scoop protein). Also drinking water, gatorade 0. Goal is to drink 40 oz liquids at day. Exercise plan: walking. Scale: Yes. Questionnaires PHQ-9 Over the last 2 weeks, how often have you been bothered by any of the following problems? 1. Little interest or pleasure in doing things: not at all 2. Feeling down, depressed, or hopeless: not at all 3. Trouble falling or staying asleep, or sleeping too much: several days 4. Feeling tired or having little energy: several days 5. Poor appetite or overeating: not at all 6. Feeling bad about yourself - or that you are a failure or have let yourself or your family down: not at all 7. Trouble concentrating on things, such as reading the newspaper or watching television: not at all 8. Moving or speaking so slowly that other people could have noticed. Or the opposite - being so fidgety or restless that you have been moving around a lot more than usual: not at all 9. Thoughts that you would be better off or of hurting yourself in some way: not at all Total score: 2 Depression Screening Interpretation: Negative Depression Screening Done: Yes 15207 - PHQ-9 Billing: Yes Source: Developed by Drs. Johnny Mcgregor, Mindy Dontae Devlin and colleagues, with an educational iker from [employer]. Assessment & Plan Assessment & Plan (1) Adjustment disorder with mixed anxiety and depressed mood: Code(s): F43.23 - Adjustment disorder with mixed anxiety and depressed mood Plan f/up up in about a month. Next travon:03/04/2025 at 9am. Telehealth. Telehealth Telehealth Telehealth Platform: [employer] Location of provider rendering services: practice address Location of patient: address on file Patient Identification confirmed using: Name, : Yes Telehealth method: video Patient verbally consented to treatment: Yes Patient verbally consented to billing insurance company: Yes Patient informed of any privacy concerns related to visit: Yes Minutes spent on Phone/Video with Pt.: 30 Coding Level of Care Code Established Pt Tele Psytx 30 mins (43676) Patient Type Established Diagnoses Adjustment disorder with mixed anxiety and depressed mood F43.23 Additional Codes PHQ-9 - 74143 - PHQ-9 Billing: Yes ([id number]) Time Spent (min) 30
--- OUTSIDE RECORDS SUMMARY | 2025-01-23 09:45 | XMS_ITS | Encounter Summary ---
Author Organization [employer] Address [address] [place] [address] 7t [place] [address] Care Team Providers Care Computer Systems Security Analyst Name Role Phone Sarah Bradley MD Primary Care Provide r Bruce Cruz RN Unavailable [phone] Veronica Preston Unavailable Encounter Details Date Type Department Care Team (Late Contact Info) Description 06/07/2023 Abstract [facility] MEDICINE [address] [place] [address] Sarah Bradley MD [address] [place] [address] Social History Tobacco Use Types Packs/Day Years [...] Description 01/29/2025 10:30 AM EDT Office Visit [facility] OPTOMETRY [address] [place] [address] Katy Del Cid, OD [address] [place] [address] documented as of this encounter Procedures Procedure [...] as of this encounter Care Teams Computer Systems Security Analyst Relationship Specialty Start Date End Date Sarah Bradley MD [address] [place] [address] PCP - General Family Medicine 06/22/18 Bruce Cruz, RN [address] [place] [address] Registered Nurse Family Medicine 01/15/25 Veronica Preston 01/15/25 Aisha Savage Welt Sole LayerDecorating Machine Operator 04/11/24 documented as of this encounter
--- OUTSIDE RECORDS SUMMARY | 2025-01-23 09:45 | XMS_ITS | Encounter Summary ---
Author Organization [employer] Address [address] [place] [address] Care Team Providers Care Hand Quilter Name Role Phone Sarah Bradley MD Primary Care Provide r Bruce Cruz RN Unavailable [phone] Veronica Preston Unavailable Encounter Details Date Type Department Care Team ([facility] Contact Info) Description 03/22/2023 Orders Only [facility] MEDICINE [address] [place], [place] [phone] Provider, MD Yessi Social History Tobacco Use [...] Upcoming Encounters Date Type Department Care Team ([facility] Contact Info) Description 01/29/2025 10:30 AM EDT Office Visit [facility] OPTOMETRY [address] [place], [place] [phone] Katy Del Cid, OD [address] [place] [address] documented as of this encounter Procedures Procedure [...] as of this encounter Care Teams Hand Quilter Relationship Specialty Start Date End Date Sarah Bradley MD [address] [place], [place] [phone] PCP - General Family Medicine 06/22/18 Bruce Cruz, RN [address] [place] [address] Registered Nurse Family Medicine 01/15/25 Veronica Preston 01/15/25 Aisha Savage Alto SingerGrips 04/11/24 documented as of this encounter
--- OUTSIDE RECORDS SUMMARY | 2025-01-23 09:45 | XMS_ITS | Encounter Summary ---
Author Organization [employer] Address [address] [facility] 7t [place] [address] Care Team Providers Care Soap Worker Name Role Phone Sarah Bradley MD Primary Care Provide r Bruce Cruz RN Unavailable [phone] Veronica Preston Unavailable Encounter Details Date Type Department Care Team (Late Contact Info) Description 01/27/2023 Abstract [facility] MEDICINE [address] [place] [address] Sarah Bradley MD [address] [place] [address] Social History Tobacco Use Types Packs/Day Years [...] Description 01/29/2025 10:30 AM EDT Office Visit [facility] OPTOMETRY [address] [place] [address] Katy Del Cid, OD [address] [place] [address] documented as of this encounter Procedures Procedure [...] documented as of this encounter Care Teams Soap Worker Relationship Specialty Start Date End Date Sarah Bradley MD [address] [place], [place] [phone] PCP - General Family Medicine 06/22/18 Bruce Cruz, RN [address] [place] [address] Registered Nurse Family Medicine 01/15/25 Veronica Preston 01/15/25 Aisha Savage Shoe ClerkMathematical Physicist 04/11/24 documented as of this encounter
--- OUTSIDE RECORDS SUMMARY | 2025-01-23 09:45 | XMS_ITS | Clinical Summary ---
Author Organization [employer] Address [address] [facility] 7t [place] [address] Care Team Providers Care Flask Carrier Name Role Phone Sarah Bradley MD Primary Care Provide r Bruce Cruz RN Unavailable [phone] Veronica Preston Unavailable Allergies Active Allergy Reactions Criticality Noted Date Comments Latex 09/01/2022 Medications Alcohol Swabs ([facility] Prep) 70 % pads PLEASE USE DIRECTED FOR FOUR TIMES DAILY BLOOD GLUCOSE MONITORING IN 2 Active Aspirin Low Dose 81 MG EC tablet TAKE 2 TABLETS BY MOUTH EVERY DAY 2 Active Blood Glucose Monitoring Suppl ([employer] [place] Lite) w/Device kit TEST 4 TIMES A [...] Department Care Team Description 01/20/2025 Patient Outreach [facility] [address] [place] [address] Sarah Bradley MD 01/15/2025 Patient Outreach [facility] [address] [place] [address] Sarah Bradley MD Care Coordination (C3/CM Outreach) 01/15/2025 Patient Outreach [facility] [address] [place] [address] Sarah Bradley MD Care Coordination (C3/CM Chart Review) 01/15/2025 Patient Outreach [facility] MEDICINE [address] [place] [address] Sarah Bradley MD Care Coordination (C3- chart review) 01/15/2025 Patient Outreach [address] [address] Sarah Bradley MD 12/20/2024 Patient Outreach [address] [address] Sarah Bradley MD Pre-visit Planning (SDOH screening negative and tobacco screening negative) 12/05/2024 Orders Only [facility] External Provider, [facility] 12/03/2024 Orders Only GENERIC EXTERNAL DATA DEPARTMENT Provider, Generic External Data 11/25/2024 Orders Only GENERIC EXTERNAL DATA DEPARTMENT Provider, Generic External Data 11/15/2024 Population Health Risk Score [facility] (C3) Department [address] [place] [phone] Provider, Population Health Generic from Last [...] 10:30 AM EDT Office Visit [facility] OPTOMETRY [address] [place] [address] Katy Del Cid, OD [address] [place] [address] Health Maintenance Due Date Last Done Comments [...] EDT Narrative 12/05/2024 11:03 AM EDT ? [facility] ?[address] ?[place] [address] ? Fluoroscopy Report ? Signed ? Patient: Sarah Sheikh I ?MR#: [id number] ?? [id number] ? : 1985 ?Acct:[id number] ? Age/Sex: 39 / F ?ADM Date: 12/05/24 ? Loc: HO.XRAY ? Attending Dr: Parmjit Caraballo MD ? Ordering Physician: Parmjit Caraballo MD ?? Date of Service: 12/05/24 ?? Procedure(s): FL upper GI w air ?? Accession Number(s): [id number] ? cc: Sarah Bradley MD; Parmjit Caraballo [...] DD/ 0958 ? TD/TT: 12/05/24 1015 ? Dry Chain Puller: ? Procedure Note Donotuseinterpreter, Image - 12/05/[address] [address] Fluoroscopy Report Signed Patient: Sarah Sheikh IMR#: [id number] : 1985Acct:[id number] Age/Sex: 39 / FADM Date: 12/05/24 Loc: [facility] Attending Dr: Parmjit Caraballo MD Ordering Physician: Parmjit Caraballo MD Date of Service: 12/05/24 Procedure(s): FL upper GI w air Accession Number(s): [id number] cc: Sarah Bradley MD; Parmjit Caraballo MD [...] noted during the exam. Electronically signed by: Reji Martinez MD 12/05/2024 11:00 AM EDT Dictated By: Reji Martinez MD Signed By: <Electronically signed by Reji Martinez MD in OV> 12/05/24 1100 DD/ 0958 TD/TT: 12/05/24 1015 Dry Chain Puller: [facility] Exter nal Provider IMG FLUOROSCOPY PROCEDURES Edited Result - Final * Hematoxylin and Eosin Stain (12/03/2024 1:43 PM EDT) 12/03/2024 1:43 PM EDT 12/03/2024 2:08 PM EDT [facility] LABS - 12/05/2024 4:04 PM EDT ----- ------- Name: Sarah Sheikh I ?Age/Sex: 39/F ? : 1985 Unit#: [id number] ?? Attend Dr: Parmjit Caraballo MD ?Re12/03/24 ?Status: DEP SDC ? Location: HO.SSS ?Disch: ? ----- ------- SPEC : [id number] ? RECD: 12/03/24-4443 ? STATUS: ??SOUT ? REQ NUM: [id number] ? IRIS: 12/03/24-1343 ? SUBM DR: Parmjit Caraballo MD ? ENTERED: ??12/03/24-414 ?SP TYPE: Surgical ? OTHR DR: Sarah [...] I ?Age/Sex: 39/F ? : 1985 Unit#: [id number] ?? Attend Dr: Parmjit Caraballo MD ?Re12/03/24 ?Status: DEP SDC ? Location: HO.SSS ?Disch: ? ----- ------- SPEC : [id number] ? RECD: 12/03/24-8950 ? STATUS: ??SOUT ? REQ NUM: [id number] ? IRIS: 12/03/24-3 ? SUBM DR: Parmjit [...] Copies To: ?? Sarah Bradley MD ?? [facility] ?? [address] ?? [place] [address] ?? [phone] ?? Parmjit Caraballo MD ?? [facility] ?? [address] ?? [place] [address] ?? [phone] ----- ------- Signed (signature on file) Manuel Schmidt MD 12/05/24 8084 ? ----- ------- ? END OF REPORT ? us Generic External Data Provider LAB BLOOD ORDERAB LES Final Result [facility] [address] [place] [address] [phone] * HCG, Qualitative, Urine (12/03/2024 11:59 AM EDT) Urine NEGATIVE NEGATIVE [facility] Comment:This test was develo ped to detect early . Falsenegative results may occur after the 5th - 7th week ofpregnancy when using this test method. If clinicallyindicated, consider a serum hCG. 12/03/2024 11:5 9 AM EDT 12/03/2024 11:59 AM EDT us Generic External Data Provider LAB URINE ORDERAB LES Final Result [facility] [address] [place] [address] [phone] * Glucose, Random, Serum (11/25/2024 8:49 AM EDT) Glucose 115 60 - 115 mg/dL [facility] 11/25/2024 8:49 AM EDT 11/25/2024 8:49 AM EDT Generic External Data Provider LAB BLOOD ORDERAB LES Final Result Performing Organization Address City/[facility]/ZIP Co de Phone Number [facility] [address] [place] [phone] * Hemoglobin A1c (09/30/2024 9:07 AM EST) Hemoglobin A1c 5.9 <6.0 % [facility] Comment:Hemoglobin A1C Refer ence Range Adults: 4.8 - 6.0 % Non diabetic: < 6.0 % Goal: < 7.0 %Additional Action Suggested: > 8.0 %Note: Hemoglobin A1c results are invalid for patients with abnormal amounts of HbF. Blood transfusions may impact the HbA1c concentration in the patient sample. Estimated Average Glucose 123 mg/dL [facility] Comment:eAG = Estimated ave rage glucose which is %A1C expressed asaverage glucose, using the formula of the P1O-ZjkmfwuZpkgvab Glucose study (ADAG), Diabetes Care, Vol.31,#8,Apr. 2007 09/30/2024 9:07 AM EST 09/30/2024 9:07 AM EST Generic External Data Provider LAB BLOOD ORDERAB LES Final Result Performing Organization Address City/[facility]/ZIP Co de Phone Number [facility] [address] [place] [phone] * (ABNORMAL) Lipid Panel, Standard (09/30/2024 9:07 AM EST) Triglycerides 150(H) <150 mg/dL [facility] Comment:Desirable Triglyceri de: less than 150 mg/dLBorderline High Triglyceride 150-199 mg/dLHigh Triglyceride: 200-499 mg/dLVery High Triglyceride: greater than or equal to 5OO mg/dL Cholesterol 170 <200 mg/dL [facility] Comment:Desirable Cholestero l: less than 200 mg/dLBorderline High Cholesterol: 200-239 mg/dLHigh Cholesterol: greater than 239 mg/dL LDL Cholesterol Calculated 101(H) <100 mg/dL [facility] Comment:Desirable LDL: less than 100 mg/dLNear Optimal/Above Optimal LDL: 110- 129 mg/dLBorderline High LDL: 130-159 mg/dLHigh LDL: 160-189 mg/dLVery High LDL: greater than or equal to 190 mg/dL HDL Cholesterol 39(L) >40 mg/dL [facility] Comment:Desirable HDL: great er than 40 mg/dL Note: This HDL assay may give artificially low results in patients with liver disease. 09/30/2024 9:07 AM EST 09/30/2024 9:07 AM EST Generic External Data Provider LAB BLOOD ORDERAB LES Final Result Performing Organization Address [facility]/ZIP Co de Phone Number [facility] [address] [place] [phone] * Hm Pap Smear (02/21/2023) Historical Provider HEALTH MAINTENANCE Final Result * HPV E6/E7 RFLX CLAIRE 16 18/45 (12/08/2021 10:43 AM EDT) Pathologist [facility] HPV mRNA E6/E7 rflx Not Detected Not Detected [facility] Comment: Methodology: Trade Show Specialist-Mediated Amplification This assay detects E6/E7 viral messenger RNA (mRNA) from 14 high-risk HPV types (16,18,31,33,35,39,45,51,52,56,58,59,66,68). The analytical performance characteristics of this assay have been determined by [employer]. The modifications have not been cleared or approved by the FDA. This assay has been validated pursuant to the CLIA regulations and is used for clinical purposes. For additional information, please refer to http://education.ArmedZilla/faq/SGZ742i8 (This link if provided for information/ educational purposes only.) THIS TEST WAS PERFORMED AT: [facility] [address] [place] [address],[address] [place], [place] ??[phone] KLAUS BRASHER MD 12/08/2021 10:4 3 AM EDT Laine Zamora HISTORICAL/NON ORDERABLE LABS Fi nal Result Performing Organization Address [facility] Number [facility] [place] [address], * HEPATITIS C ANTIBODY (11/16/2019 10:03 AM EDT) Pathologist [facility] HEPATITIS C ANTIBODY NONREACTIVE [facility] Comment: Antibodies to HCV not detected; does not exclude early acute HCV infection. 11/16/2019 10:0 3 AM EDT Laine Zamora HISTORICAL/NON ORDERABLE LABS Fi nal Result Performing Organization Address [facility] Phone Number [facility] [place] [address], * HIV AB/AG (11/16/2019 10:03 AM EDT) [facility] HIV AG/AB NONREACTIVE NR FOUNDAT[facility] ON LAB [...] detection of this assay. ?? [employer] HIV Ag/Ab Combo assay result and supplemental [...] City/State/[facility] Co de Phone Number [facility] [address] from Last 3 Months or Most Recently Relevant to Health Maintenance Insurance [facility] C3 DENTAL-[facility] MEDICAID STAND ADULT Care Teams Flask Carrier Relationship Specialty Start Date End Date Sarah Bradley MD [address] [place] [phone] PCP - General Family Medicine 06/22/18 Bruce Cruz, MIQUEL [address] [place] [address] Registered Nurse Family Medicine 01/15/25 Veronica Preston 01/15/25 Aisha Savage Boom MasterWelder Operator 04/11/24
--- OUTSIDE RECORDS SUMMARY | 2025-01-23 09:45 | XMS_ITS | Encounter Summary ---
Author Organization [employer] Address [address] [facility] [address] [place] [address] Care Team Providers Care Director Of Preclinical Research Name Role Phone Sarah Bradley MD Primary Care Provide r Bruce Cruz RN Unavailable [phone] Veronica Preston Unavailable Encounter Details Date Type Department Care Team ([facility] st Contact Info) Description 07/26/2024 Telephone [facility] [address] [place] [address] Sarah Bradley MD [address] [place], [place] [phone] Social History Tobacco Use Types Packs/Day Years [...] Description 01/29/2025 10:30 AM EDT Office Visit [facility] OPTOMETRY [address] [place] [address] Katy Del Cid, OD [address] [place] [address] documented as of this encounter Visit Diagnoses Not on filedocumented in this encounter Additional Health Concerns Assessment Noted Time PHQ-9 Depression Total Score: 0 02/19/20 24 1:15 PM EDT documented as of this encounter Care Teams Director Of Preclinical Research Relationship Specialty Start Date End Date Sarah Bradley MD [address] [place] [address] PCP - General Family Medicine 06/22/18 Bruce Cruz, MIQUEL [address] [place] [address] Registered Nurse Family Medicine 01/15/25 Veronica Preston 01/15/25 Aisha Savage Manager PresentationSubstance Abuse Technician 04/11/24 documented as of this encounter
--- OUTSIDE RECORDS SUMMARY | 2025-01-23 09:45 | XMS_ITS | Encounter Summary ---
Author Organization [employer] Address [address] [facility] [address] [place] [address] Care Team Providers Care Manager Nicu Name Role Phone Sarah Bradley MD Primary Care Provide r Bruce Cruz RN Unavailable [phone] Veronica Preston Unavailable Reason for Visit * Reason Onset Date Comments PT1 03/22/2024 Encounter Details Date Type Department Care Team ([facility] st Contact Info) Description 03/22/2024 Telephone [facility] [address] [place], [place] [phone] Sarah Bradley MD [address] [place], [place] [phone] PT1 Social History Tobacco Use Types Packs/Day [...] Y/N: Yes Provider name or facility name: [facility] Facility Address: [address] [place] [address] Escort needed: Y/N: No Do you have a wheelchair: Y/N: No If yes- Manual or electric: n/a Visits; all future visits documented in this encounter Plan of Treatment Upcoming Encounters Date Type Department Care Team (Late st Contact Info) Description 01/29/2025 10:30 AM EDT Office Visit [facility] OPTOMETRY [address] [place] [address] Nehemias, Katy, OD [address] [place] [address] documented as of this encounter Visit Diagnoses Not on filedocumented in this encounter Additional Health Concerns Assessment Noted Time PHQ-9 Depression Total Score: 0 02/19/20 24 1:15 PM EDT documented as of this encounter Care Teams Manager Nicu Relationship Specialty Start Date End Date Sarah Bradley MD [address] [place] [address] PCP - General Family Medicine 06/22/18 Bruce Cruz, MIQUEL [address] [place] [address] Registered Nurse Family Medicine 01/15/25 Veronica Preston 01/15/25 Aisha Savage Glue Wheel OperatorPharmaceutical Specialty Representative 04/11/24 documented as of this encounter
--- OUTSIDE RECORDS SUMMARY | 2025-01-23 09:45 | XMS_ITS | Clinical Summary ---
Author Organization [employer] [facility] ity Address [address] [place] [address] Care Team Providers Care Sales Order Processor Name Role Phone Unavailable Primary Care Provider [...]
--- OUTSIDE RECORDS SUMMARY | 2025-01-23 09:45 | XMS_ITS | Encounter Summary ---
Author Organization [employer] Address [address] [facility] [address] [place] [address] Care Team Providers Care Bilingual Speech Language Pathologist Name Role Phone Sarah Bradley MD Primary Care Provide r Bruce Cruz RN Unavailable [phone] Veronica Preston Unavailable Encounter Details Date Type Department Care Team ([facility] st Contact Info) Description 01/20/2025 Patient Outreach [facility] [address] [place], [place] [phone] Sarah Bradley MD [address] [place] [address] Social History Tobacco Use Types Packs/Day Years [...] 10:30 AM EDT Office Visit [facility] OPTOMETRY [address] [place] [address] Nehemias, Katy, OD [address] [place] [address] documented as of this encounter Visit Diagnoses Not on filedocumented in this encounter Additional Health Concerns Assessment Noted Time PHQ-9 Depression Total Score: 0 02/19/20 24 1:15 PM EDT documented as of this encounter Care Teams Bilingual Speech Language Pathologist Relationship Specialty Start Date End Date Sarah Bradley MD [address] [place] [address] PCP - General Family Medicine 06/22/18 Bruce Cruz, MIQUEL [address] [place] [address] Registered Nurse Family Medicine 01/15/25 Veronica Preston 01/15/25 Aisha Savage Powder MonkeyHome Designer 04/11/24 documented as of this encounter
--- OUTSIDE RECORDS SUMMARY | 2025-01-23 09:45 | XMS_ITS ---
Author Organization [employer] Address [address] [facility] [address] [place] [address] Care Team Providers Care Label Printer Name Role Phone Sarah Bradley MD Primary Care Provide r Bruce Cruz RN Unavailable [phone] Veronica Preston Unavailable CM Complex Status:Outreach In Progress (Enrolling) Start date:01/15/2025 Enrollment reason:ADT Feed Overview ADT- Pt admitted to [facility] on 01/14/25. Case Team Name Relationship Phone Bruce Cruz RN(Responsible Staff) Registered [facility] [phone] Continued Care and Services Coordination
--- OUTSIDE RECORDS SUMMARY | 2025-01-23 09:45 | XMS_ITS | Encounter Summary ---
Author Organization [employer] Address [address] [facility] [address]t [place] [address] Care Team Providers Care Offset Printer Name Role Phone Sarah Bradley MD Primary Care Provide r Bruce Cruz RN Unavailable [phone] Veronica Preston Unavailable Encounter Details Date Type Department Care Team (Late st Contact Info) Description 03/22/2023 Abstract [facility] [address] [place] [address] Sarah Bradley MD [address] [place] [address] Social History Tobacco Use Types Packs/Day Years [...] EDT Office Visit [facility] OPTOMETRY [address] [place], [place] [phone] Katy Del Cid, OD [address] [place] [address] documented as of this encounter Visit Diagnoses Not on filedocumented in this encounter Additional Health Concerns Assessment Noted Time PHQ-9 Depression Total Score: 0 01/18/20 23 10:22 AM EDT documented as of this encounter Care Teams Offset Printer Relationship Specialty Start Date End Date Sarah Bradley MD [address] [place], [place] [phone] PCP - General Family Medicine 06/22/18 Bruce Cruz, RN [address] [place] [address] Registered Nurse Family Medicine 01/15/25 Veronica Preston 01/15/25 Aisha Savage Sales Strategy ManagerResident Care Associate 04/11/24 documented as of this encounter
--- OUTSIDE RECORDS SUMMARY | 2025-01-23 09:45 | XMS_ITS ---
Author Organization [employer] Address [address] [facility] [address] [place] [address] Care Team Providers Care Cloth Laminating Supervisor Name Role Phone Sarah Bradley MD Primary Care Provide r Bruce Cruz RN Unavailable [phone] Veronica Preston Unavailable CHW Complex Status:Outreach In Progress (Enrolling) Start date:01/15/2025 Enrollment reason:ADT Feed Overview ADT- Pt admitted to [facility] on 01/14/25. Case Team Name Relationship Phone Veronica Preston(Responsible Staff) [phone] Continued Care and Services Coordination
--- OUTSIDE RECORDS SUMMARY | 2025-01-23 09:45 | XMS_ITS | Encounter Summary ---
Author Organization [employer] Address [address] [place] [address] 7t [place] [address] Care Team Providers Care Clearing Distribution Clerk Name Role Phone Sarah Bradley MD Primary Care Provide r Bruce Cruz RN Unavailable [phone] Veronica Preston Unavailable Encounter Details Date Type Department Care Team (Latest Contact Info) Description 12/15/2020 Abstract [facility] CON[facility] Dental, Provider, DDS Social History [...] Description 01/29/2025 10:30 AM EDT Office Visit [facility] OPTOMETRY [address] [place] [address] NehemiasKaty izquierdo, OD [address] [place] [address] documented as of this encounter Visit Diagnoses Not on filedocumented in this encounter Care Teams Clearing Distribution Clerk Relationship Specialty Start Date End Date Sarah Bradley MD [address] [place] [address] PCP - General Family Medicine 06/22/18 Bruce Cruz, RN [address] [place] [address] [place] [address] Registered Nurse Family Medicine 01/15/25 Veronica Preston 01/15/25 Aisha Savage Remittance ClerkBatch Unloader 04/11/24 documented as of this encounter
== END 2025-01-23 09:58 | disposition home or self-care (01) ==
LOC: HO.HBST 09:29
PROVIDERS: PCP Internal Medicine; Visit Provider Counselor Mental Health
DX: F43.23 Adjustment disorder with mixed anxiety and depressed mood (principal)
CPT/HCPCS: 90832

== ENCOUNTER 2025-02-12 09:03 | Outpatient (AMB) | payer MEDICAID, SELFPAY ==
--- NOTE | 2025-02-12 09:06 | MHC.OFFVISWM ---
VS Expanded 02/12/25 09:14 BP 121/60 Blood Pressure Location Rt brachial Blood Pressure Position Sitting Pulse 77 Pulse Source Pulse Oximeter Temp 97.1 F Temperature Source Temporal Artery Scan Pulse Oximetry 97 Oxygen Delivery Method Room Air Height 4 ft 11 in Weight 149 lb 12.8 oz BMI 30.3 Body Fat % 37.4 Body Fat Mass 56.0 Fat Free Mass 93.6 Visceral Fat Rating 7.0 Body Water % 44.8 Body Water Mass 7.0 Muscle Mass/Score 88.8 Basal Metabolic Rate/Score 1,313 Intake Visit Reasons: OV PO LSG 01/14/25 Allergies latex [LATEX] Allergy (Intermediate, Verified 02/12/25 09:12) HANDS SWELL HPI Comments Details: This?a?39?yo female who is s/p LSG without hiatal hernia repair on?01/14/2025. Presents for 1 month post op visit. Weight today is 149.8 pounds, with a BMI of 30.3. There has been a 38 pound weight loss,(initial weight 187.8 pounds) since starting the program on 09/20/2024 reflecting a 20.2 % total body weight loss and a weight loss of 17.8 pounds since surgery (operative weight 167.6 pounds) reflecting a 10.6 % TBWL since surgery. No complaints of nausea, emesis, abdominal pain or reflux. Reports infrequent but normal bowel movements every 2-3 days and uses stool softeners regularly. taking celebrate mvi Present meal plan includes: celebrate rebuild 1 scoop at 8-10, 11-1 2 scoops 2-4 Celebrate bar 5-8 Khumozzi95 oz water ? Exercise routine includes: walking outside, daily, 30 min, not tracking calories willing to join [facility] Medical History (Updated 01/18/25 @ 00:02 by Background Daemon) BMI 37.0-37.9, adult Encounter for IUD removal Cervical cancer screening Prediabetes IUD check up Encounter for IUD insertion Left breast lump Well woman exam Family planning Hx of transfusion of packed red blood cells Migraine Seizures Non-insulin dependent type 2 diabetes mellitus Sleep apnea treated with continuous positive airway pressure (CPAP) Hypothyroidism Elevated cholesterol Obesity (BMI 30-39.9) Supraumbilical hernia HTN (hypertension) Anemia History of hypothyroidism Diastasis recti Depression Asthma GERD (gastroesophageal reflux disease) Surgical History S/P laparoscopic sleeve gastrectomy History of esophagogastroduodenoscopy (EGD) Hx of section History of umbilical hernia repair (05/13/19) Family History Father No problems noted. Mother HTN (hypertension) Asthma Hyperthyroidism Diabetes Paternal Aunt Breast cancer Son Asthma Son Asthma ADHD Son Asthma Daughter Autism Social History Household Members: Significant Other Housing: Apartment Are you a primary summer child caregiver to a significant other at home: No Do you presently have visiting nurse or other home services: No Alcohol intake: former Patient Tobacco Use Status: Never used Tobacco Sexual orientation: Straight/Heterosexual Gender identity: Female Female Reproductive History Menstrual Age of Menarche: 13 Physical Exam GI Inspection: Yes incision (Clean, dry, intact.) Assessment & Plan Assessment & Plan (1) S/P laparoscopic sleeve gastrectomy: Code(s): Z98.84 - Bariatric surgery status Category: Surgical Plan: Overall, patient is doing well. She continues to communicate with Dr. Caraballo and is having her meal plan adjusted by him. She is walking daily, 30 minutes, but not tracking her calories. She states that she [place] the [facility] in [place] and was given a discount paper to bring to the gym. Discussed the importance of tracking calories at the gym, goal of burning 300 per day or 2000 per week. Overall she feels great and has no complaints at today's visit. We will have her return to the office in approximately 1 month.
[2025-02-12 09:14] VITALS: BP 121/60; PULSE 77; TEMP 36.2; O2SAT 97; BMI 30.3
--- OUTSIDE RECORDS SUMMARY | 2025-02-12 09:34 | XMS_ITS | Clinical Summary ---
Author Organization [employer] [facility] ity Address [address] [place] [address] Care Team Providers Care Sales Exec Name Role Phone Unavailable Primary Care Provider [...]
== END 2025-02-12 09:46 | disposition home or self-care (01) ==
LOC: HO.HBS 09:04
PROVIDERS: PCP Internal Medicine; Visit Provider Physician Assistant Surgical
DX: Z98.84 Bariatric surgery status (principal)
CPT/HCPCS: 99024

== ENCOUNTER → 2025-02-12 09:03 | Outpatient (BNVA) | payer MEDICAID, SELFPAY | PROVIDERS: PCP Internal Medicine; Visit Provider Physician Assistant Surgical | DX: Z98.84 Bariatric surgery status (principal) | CPT/HCPCS: 99212 ==

== ENCOUNTER 2025-02-23 16:41 | Inpatient (IN) | payer MEDICAID, SELFPAY ==
--- NOTE | ~2025-02-23 | CT_ITS ---
CLINICAL HISTORY: abd pain, s p gastric bypass CT abdomen and pelvis with contrast Comparison: CT/[place]/SR - CT ABDOMEN PELVIS WO IV CON - 08/05/24 08:02 EST Findings: No consolidation or effusion. Liver is normal in size. There is mild fatty infiltration. The spleen, gallbladder, pancreas, adrenal glands and kidneys are unremarkable. No bowel obstruction, pneumoperitoneum, or pneumatosis. There has been what appears to be a gastric sleeve surgery previously. Uterus and adnexa are unremarkable. Normal appendix. No acute fracture. IMPRESSION: No acute findings. Fatty infiltration of the liver. This document has been electronically signed by: Marbin Florian MD on 02/23/2025 20:18:21
[2025-02-23 16:57] VITALS: BP 135/87; PULSE 94; RESP 16; TEMP 37.2; O2SAT 100; BMI 29.1
--- NOTE | 2025-02-23 17:05 | ED_ITS ---
HPI - General Adult General Chief complaint: Nausea/Vomiting/Diarrhea Stated complaint: surgery-01/14 since then nothing stays down Time Seen by Provider: 02/23/25 18:01 Source: patient and steam conditioner filling (all interactions with this patient were facilitated with an [facility] [place] associate[place] Mode of arrival: ambulatory Limitations: language barrier (all interactions with this patient were facilitated with an [facility] [place] management associate) History of Present Illness ED Provider: Brie Samayoa PA-C HPI narrative: Patient is a 39 year old assigned female at with a history of gastric sleeve on 01/14/2025, DM, HTN, and KELL presenting to the emergency department today with abdominal pain, nausea, and vomiting. Patient states that ovr the last 3 days she has had nausea, vomiting, and abdominal pain which she has not told the bariatric team about. Patient denies any dizziness, lightheadedness, fever, chills, blurry vision, double vision, loss of vision, chest pain, difficulty breathing, shortness of breath, back pain, night sweats, pain with urination, increased urinary frequency, increased urinary urgency, blood in her urine or stool, syncope or a near syncopal episode, recent trauma or falls, bowel incontinence, bladder incontinence, or any other complaints at this time. Onset (ago): day(s) (3) Relieving factors: none Exacerbating factors: none Associated symptoms: nausea/vomiting Treatments prior to arrival: none Related Data Home Medications ?Medication ?Instructions ?Recorded ?Confirmed albuterol sulfate 90 mcg/actuation 2 puff inhalation Q 4H PRN 06/17/21 01/22/25 aerosol inhaler (ProAir HFA) Shortness Of Breath Or Wh eezing levothyroxine 137 mcg tablet 137 mcg PO QAM 02/09/23 0 01/22/25 nifedipine 60 mg tablet,extended 60 mg PO QAM 06/13/24 01/14/25 release Held on 01/15/25. Instructions: Resume on 01/16/25. Check your blood pressure every morning as soon as you wake up and send it to Dr. Caraballo. Do no take the blood pressure medication if the blood pressure is below 120/70. Wait every day to hear back from Dr. Caraballo before you take the medication. Previous Rx's ?Medication ?Instructions ?Recorded cholecalciferol (vitamin D3) 125 125 mcg PO DAILY #90 caps 10/25/24 mcg (5,000 unit) capsule Held on 01/15/25. Instructions: Resume on 01/29/25. iron,carbonyl 65 mg-vitamin C 125 1 tab PO DAILY #90 t abs 10/25/24 mg tablet,delayed release (Vitron-C) pantoprazole 40 mg tablet,delayed 40 mg PO DAILY #90 t abs 12/31/24 release sucralfate 100 mg/mL oral 10 ml PO BID #600 mL 5 suspension docusate sodium 100 mg capsule 100 mg PO BID #60 caps 01/22/25 (Colace) Allergies Allergy/AdvReac Type Severity Reaction Status Date / Time latex (LATEX) Allergy Intermediate HANDS SWELL Verified 02/23/25 17:05 Review of Systems 2 Constitutional: Constitutional: Reports no additional constitutional complaints, Denies chills, Denies fever(s) and Denies night sweats Eyes: Eyes: Reports no additional eye complaints, Denies blurry vision, Denies change in vision, Denies diplopia, Denies eye discharge, Denies loss of vision and Denies eye pain ENT: Denies dizziness Cardiovascular: Cardiovascular: Reports no additional cardiovascular complaints, Denies chest pain, Denies lightheadedness, Denies Loss of Consciousness and Denies dyspnea Respiratory: Respiratory: Reports no additional respiratory complaints and Denies dyspnea Gastrointestinal: Gastrointestinal: Reports no additional gastrointestinal complaints, Reports abdominal pain, Denies melena, Denies hematochezia, Denies change in bowel habits, Denies change in stool character, Reports nausea and Reports vomiting Genitourinary: Genitourinary: Denies hematuria, Denies urinary frequency, Denies dysuria, Denies urinary incontinence, Denies urinary hesitancy and Denies urinary urgency Musculoskeletal: Musculoskeletal: Reports no additional musculoskeletal complaints, Denies numbness and Denies tingling Neurologic: Denies dizziness, Denies loss of vision, Denies numbness and Denies tingling Psychiatric: Psychiatric: Reports no additional psychiatric complaints Endocrine: Endocrine: Reports no additional endocrine complaints Hematologic/Lymphatic: Hematologic/Lymphatic: Reports no additional hematologic/lymphatic complaints Allergic/Immunologic: Allergic/Immunologic: Reports no additional allergic/immunologic complaints PMFSH Past Medical History Attestation statement: The following information was validated with the patient. Source: old records reviewed and nursing notes reviewed Medical History BMI 37.0-37.9, adult Encounter for IUD removal Cervical cancer screening Prediabetes IUD check up Encounter for IUD insertion Left breast lump Well woman exam Family planning Hx of transfusion of packed red blood cells Migraine Seizures Non-insulin dependent type 2 diabetes mellitus Sleep apnea treated with continuous positive airway pressure (CPAP) Hypothyroidism Elevated cholesterol Obesity (BMI 30-39.9) Supraumbilical hernia HTN (hypertension) Anemia History of hypothyroidism Diastasis recti Depression Asthma GERD (gastroesophageal reflux disease) Surgical History S/P laparoscopic sleeve gastrectomy History of esophagogastroduodenoscopy (EGD) Hx of section History of umbilical hernia repair (05/13/19) Family History Family History Father No problems noted. Mother HTN (hypertension) Asthma Hyperthyroidism Diabetes Paternal Aunt Breast cancer Son Asthma Son Asthma ADHD Son Asthma Daughter Autism Social History Social History Household Members: Significant Other Housing: Apartment Are you a primary wound care coordinator to a significant other at home: No Do you presently have visiting nurse or other home services: No Alcohol intake: former Patient Tobacco Use Status: Never used Tobacco Advance Directives: No Advance Directives Information Provided: No Do you have a plan to hurt others: No Plan Nutrition Risks: No Nutritional Risk Sexual orientation: Straight/Heterosexual Gender identity: Female Physical Exam ED Vital Signs: Vital Signs - 24 hr 02/23/25 16:57 02/23/25 17:44 02/23/25 20:14 Temperature 98.9 F 98.8 F 98.6 F Pulse Rate 94 84 65 Respiratory Rate 16 18 18 Blood Pressure 135/87 116/85 110/75 Pulse Oximetry 100 99 100 Oxygen Delivery Method Room Air Room Air Room Air BMI result Body Mass Index 29.1 Const General: cooperative, no acute distress, alert and awake Nutritional Appearance: well nourished Orientation/consciousness: patient oriented x3 HENMT Head: Yes normal to inspection and Yes atraumatic Ears: hearing grossly normal bilaterally and external ears normal General nose exam: Normal external nose present, no nasal discharge noted and no epistaxis Face and sinus: Yes normal facial exam, No abrasion and No laceration Mouth: Normal oral and palatal mucosa present, no drooling and no muffled voice Eyes General: appearance normal, both eyes and all related structures Periorbital: periorbital findings normal Eyelids: Yes eyelids normal Conjunctivae: conjunctivae normal Pupils: Equal, round and reactive pupils present EOM: EOMs intact bilaterally Neck Neck: Yes normal visual inspection, Yes full ROM and Yes no lymphadenopathy Resp Effort & Inspection: normal respiratory effort and able to speak in complete sentences GI Palpation (GI): Soft to palpation, not firm, Tenderness to palpation present (GI), no guarding and not rigid Neuro General: patient oriented x3, moves all extremities and CN's II-XI intact bilaterally Cranial nerves: Yes Equal, round and reactive pupils present Cognition (Neuro): normal cognition Extrem General: Yes normal to inspection, Yes full ROM and Yes capillary refill normal Psych Appearance: grossly normal Mental Status: mental status grossly normal Affect: normal affect Attitude: cooperative Thought process: Normal thought process present Thought content: Normal thought content present Insight: Good insight present (Psych) Course Course Course Narrative: RME: 39 yold female with pmh of asthma, hypothyroidism and s/p gastric bypas sugery on 01/14 presents to ED for nausea and vomiting and up able to keep food down slight abdominal discomfort. Labs ordered. Abdomen benign Medications Administered Generic Name Dose Route Start Last Admin Trade Name Freq PRN Reason Stop Dose Admin Enoxaparin Sodium 40 mg 02/23/25 21:00 02/23/25 21:42 Enoxaparin Sodium 40 Mg/0.4 Ml Syringe SUBCUT 40 mg Q24H EMMETT Administration Sodium Chloride 1,000 mls @ 250 mls/hr 02/23/25 19:45 02/23/25 20:17 Ns IV 02/23/25 23:44 250 mls/hr .Q4H EMMETT Administration Potassium Chloride/Dextrose/Sod Cl 20 meq in 1,000 mls @ 100 mls/hr 02/23/25 21:15 02/23/25 22:13 Kcl 20 Meq In 5% Dex/0.45% Sod IVCONT 100 mls/hr .Q10H EMMETT Administration Insulin Human Lispro 0 unit 02/23/25 21:00 02/23/25 21:38 Insulin Lispro 100 Unit/Ml 3 Ml Vial SUBCUT Not Given [facility]IDACHS [facility] Protocol Discontinued Medications Generic Name Dose Route Start Last Admin Trade Name Freq PRN Reason Stop Dose Admin Diatrizoate Meglum/Diatrizoate Sod 30 ml 02/23/25 19:47 02/23/25 19:47 Diatrizoate Meglumine, Sodium 30 Ml Solution PO 02/23/25 19:48 30 ml ONCE ONE Administration Potassium Chloride 10 meq in 100 mls @ 100 mls/hr 02/23/25 18:15 02/23/25 22:38 Potassium Chloride/H20 IV 02/23/25 22:14 100 mls/hr Q1H EMMETT Administration Iohexol 100 ml 02/23/25 19:44 02/23/25 19:46 Iohexol 350 Mg/Ml 100 Ml Infus..Btl IV 02/23/25 19:45 85 ml ONCE ONE Administration Ondansetron HCl 4 mg 02/23/25 18:02 02/23/25 18:13 Ondansetron Hcl 4 Mg/2 Ml Vial IVPUSH 02/23/25 18:03 4 mg ONCE ONE Administration Medical Decision Making Medical Decision Making [facility] Narrative: Patient is a 39 year old assigned female at with a history of gastric sleeve on 01/14/2025, DM, HTN, and KELL presenting to the emergency department today with abdominal pain, nausea, and vomiting. Patient's physical exam was as noted in the physical exam portion of this note. Patient's blood work showed a potassium of 2.6 adn a lipase of 116. Patient's urine showed no acute process. Patient's EKG was unremarkable. Patient's CT abd/pelvis with IV + PO contrast showed no acute process. Patient was given IV fluids, Zofran, and potasisum. Patient continued to be unable to successfully tolerate PO while in the department. Given her recent bariatric surgery, hypokalemia, and continued nausea/vomiting - I recommended admission. I spoke with the hospitalist team who agreed to admission. I explained my physical exam findings as well as all test results to the patient. I answered all questions asked by the patient. Patient verbalized agreement and understanding with this treatment plan and admission. Differential Diagnosis Differential Diagnoses: The differential diagnosis associated with the presentation includes Hypokalemia Elevated lipase Dehydration Intractable vomiting Abdominal pain Admission/Observation Consideration of admission/observation: Escalation of care including admission/observation considered Patient admitted as noted in the MDM Rationale portion of this note. Consult Healthcare Provider Management of the patient was discussed with: Hospitalist (agreed to admission as noted in the MDM Rationale portion of this note. ) Lab Data [facility] Lab Attestation statement: I reviewed the patient's lab results. My interpretation of these results are in the MDM Rationale portion of this note. 02/23/25 17:26 02/23/25 17:26 Labs: Lab Results 02/23/25 02/23/25 Range/Units 17:26 17:42 WBC 5.4 (4.8-10.8) X10*3/uL RBC 4.88 (4.20-5.50) X10*6/uL Hgb 13.3 (12.0-16.0) g/dl Hct 39.2 (37.0-47.0) % MCV 80.3 (80.0-98.0) fL MCH 27.3 (27.0-33.0) pg MCHC 33.9 (31.0-35.0) g/dl RDW 18.1 H (11.0-16.0) % Plt Count 182 D (160-400) X10*3/uL MPV 12.0 (9.4-12.3) fL Immature Gran % (Auto) 0.4 (0.0-0.4) % Neut % (Auto) 60.2 (45-73) % Lymph % (Auto) 26.6 (20-40) % [place] % (Auto) 9.8 (2-11) % Eos % (Auto) 2.4 (0-4) % Baso % (Auto) 0.6 (0-2) % Lymph # (Auto) 1.4 (1.2-4.9) X10*3/uL [place] # (Auto) 0.5 (0.1-1.2) X10*3/uL Eos # (Auto) 0.1 (0.0-0.4) X10*3/uL Baso # (Auto) 0.0 (0.0-0.2) X10*3/uL Abs Immat Gran (auto) 0.02 (0.00-0.03) X10*3/uL Absolute Neuts (auto) 3.3 (2.0-8.3) x10*3/uL Absolute Nucleated RBC 0.000 (0.0-0.012) X10*3/uL Nucleated RBC % (auto) 0.0 (0.0-0.2) /100WBC Sodium 142 (135-145) mmol/L Potassium 2.6 L* D (3.3-5.1) mmol/L Chloride 106 (96-108) mmol/L Carbon Dioxide 20 L (22-29) mmol/L Anion Gap 19 (12-20) BUN 10 (9-16) mg/dL Creatinine 0.64 (0.5-1.4) mg/dL Estim Creat Clear Calc 98.9 Estimated GFR > 60 Random Glucose 102 (60-115) mg/dL Calcium 9.4 D (8.4-10.2) mg/dL Magnesium 1.8 (1.6-2.6) mg/dL Total Bilirubin 0.5 (0.0-1.0) mg/dL AST 17 (5-31) U/L ALT 14 (0-31) U/L Alkaline Phosphatase 64 (39-117) U/L Total Protein 7.9 (6.5-8.0) g/dL Albumin 4.6 (3.5-5.0) g/dL Lipase 116 H (8-78) U/L Beta HCG, Quant < 2 mIU/mL Urine Color Dark Yellow Urine Appearance Turbid Urine pH 6.5 (5.0-9.0) Ur Specific [place] >= 1.030 H (1.005-1.025) Urine Protein 100 (2+) H (Neg-Trace) mg/dL Urine Glucose (UA) Negative (Negative) mg/dL Urine Ketones >=160 (Negative) mg/dL Urine Blood Negative (Negative) Urine Nitrite Negative (Negative) Ur Leukocyte Esterase Trace H (Negative) Urine RBC 3-5 H (0-2) /HPF Urine WBC 6-10 H (0-5) /HPF Ur Squamous Epith Cells >20 (0-2) /HPF Other Crystals Present Urine Bacteria 3+ (None Seen) Hyaline Casts 3-5 (0-2) /LPF Independent Interpretation I performed an independent interpretation of an: EKG and CT Scan Interpretation: My interpretation is in agreement with the radiologist's impression of this imaging study. L Report Number: [id number]: Total DLP = 462.00 mGy-cm CLINICAL HISTORY: abd pain, s p gastric bypass CT abdomen and pelvis with contrast Comparison: CT/[place]/SR - CT ABDOMEN PELVIS WO IV CON - 08/05/24 08:02 EST Findings: No consolidation or effusion. Liver is normal in size. There is mild fatty infiltration. The spleen, gallbladder, pancreas, adrenal glands and kidneys are unremarkable. No bowel obstruction, pneumoperitoneum, or pneumatosis. There has been what appears to be a gastric sleeve surgery previously. Uterus and adnexa are unremarkable. Normal appendix. No acute fracture. IMPRESSION: No acute findings. Fatty infiltration of the liver. This document has been electronically signed by: Marbin Florian MD on 02/23/2025 20:18:21 Dictated By: Marbin Florian MD Signed By: Electronically signed by Marbin Florian MD 02/23/252018 I independently interpreted this EKG and am in agreement with the below findings: Vent. Rate: 71 BPM Atrial Rate: 71 BPM P-R Int: 132 ms QRS Dur: 78 ms QT Int: 430 ms P-R-T Axes: 56 46 71 degrees QTcB Int: 467 ms Normal sinus rhythm with sinus arrhythmia T wave abnormality, consider anterior ischemia When compared with ECG of 03-Dec-2024 08:43, T wave inversion now evident in Anterior leads DD/ 2108 Radiology Impression Discussion of test interpretation with radiology: I have reviewed the radiologist's reading. Critical Care Time Critical Care Time Critical Care Time: Yes Total Critical Care Time: 38 Attestation: I spent 38 minutes of Critical Care Time with this patient. This does not include time spent on separately reported billable procedures. Discharge Plan Discharge Clinical Impression: Acute hypokalemia Nausea & vomiting Qualifiers: Vomiting type: unspecified Qualified Code(s): R11.2 - Nausea with vomiting, unspecified Abdominal pain Qualifiers: Abdominal location: generalized Qualified Code(s): R10.84 - Generalized abdominal pain Patient Disposition: Admitted As Inpatient
[2025-02-23 17:32] LABS: MANUAL DIFF FLAG NO
[2025-02-23 17:37] LABS: Basophils Percent Auto 0.6 % (0-2); Eosinophils Absolute Auto 0.1 X10*3/uL (0.0-0.4); Eosinophils Percent Auto 2.4 % (0-4); Hematocrit 39.2 % (37.0-47.0); Hemoglobin 13.3 g/dl (12.0-16.0); Imm Gran Abs Auto 0.02 X10*3/uL (0.00-0.03); Imm Gran Pct Auto 0.4 % (0.0-0.4); Lymphocytes Absolute Auto 1.4 X10*3/uL (1.2-4.9); Lymphocytes Percent Auto 26.6 % (20-40); Mean Corpuscular HGB Conc 33.9 g/dl (31.0-35.0); Mean Corpuscular Hemoglobin 27.3 pg (27.0-33.0); Mean Corpuscular Volume 80.3 fL (80.0-98.0); Monocytes Absolute Auto 0.5 X10*3/uL (0.1-1.2); Monocytes Percent Auto 9.8 % (2-11); Neutrophils Absolute Auto 3.3 x10*3/uL (2.0-8.3); Neutrophils Percent Auto 60.2 % (45-73); Platelet Count 182 X10*3/uL (160-400); Red Blood Count 4.88 X10*6/uL (4.20-5.50); Red Cell Distribution Width 18.1 % (11.0-16.0); White Blood Count 5.4 X10*3/uL (4.8-10.8)
[2025-02-23 17:44] VITALS: BP 116/85; PULSE 84; RESP 18; TEMP 37.1; O2SAT 99
[2025-02-23 17:51] LABS: Appearance Urine Turbid; Color Urine Dark Yellow; Glucose Urine UA Negative (Negative); Leukocyte Esterase Urine Trace (Negative); Nitrite Urine Negative (Negative); PH 6.5 (5.0-9.0); Specific Gravity - Urine >= 1.030 (1.005-1.025); UMIC TRIGGER UACC YES; Urine Blood Negative (Negative); Urine Ketones >=160 mg/dL (Negative); Urine Protein 100 (2+) mg/dL (Neg-Trace)
[2025-02-23 18:01] LABS: Alanine Aminotransferase 14 U/L (0-31); Albumin Level 4.6 g/dL (3.5-5.0); Alkaline Phosphatase 64 U/L (39-117); Anion Gap 19 (12-20); Aspartate Amino Transferase 17 U/L (5-31); Bilirubin Total 0.5 mg/dL (0.0-1.0); Blood Urea Nitrogen 10 mg/dL (9-16); Calcium 9.4 mg/dL (8.4-10.2); Carbon Dioxide 20 mmol/L (22-29); Chloride 106 mmol/L (96-108); Creatinine Clr Calc Pharmacy 98.9; Estimated Glomerular Filt Rate > 60; Glucose Random 102 mg/dL (60-115); HCG Quantitative < 2 mIU/mL; Lipase 116 U/L (8-78); Potassium 2.6 mmol/L (3.3-5.1); Sodium 142 mmol/L (135-145); Total Protein 7.9 g/dL (6.5-8.0)
[2025-02-23 18:13] LABS: Magnesium 1.8 mg/dL (1.6-2.6)
[2025-02-23] MEDS: ondansetron HCL 4 MG/2 ML VIAL IVPUSH (18:13)
[2025-02-23 18:15] LABS: Bacteria Urine 3+ (None Seen); Other Crystals Urine Present; Squamous Epithelial Cell Urine >20 /HPF (0-2); UACC Culture Trigger YES
[2025-02-23] MEDS: Potassium Chloride/H20 10 MEQ/100 ML PIGGYBACK 100 MEQ IV ×3 (18:16→22:38)
[2025-02-23] MEDS: iohexoL 350 MG/ML 100 ML INFUS..BTL IV (19:46)
[2025-02-23] MEDS: Diatrizoate Meglumine, Sodium 30 ML SOLUTION PO (19:47)
[2025-02-23 20:14] VITALS: BP 110/75; PULSE 65; RESP 18; TEMP 37; O2SAT 100
[2025-02-23] MEDS: 0.9 % Sodium Chloride 1,000 ML 250 ML IV (20:17)
--- NOTE | 2025-02-23 20:20 | PC.NURSE ---
pt is axox4 resting at the bedside. Denies any pain. potassium IV currently running at a slower rate for patient comfort. Midlevel provider made aware. monitoring ongoing.
--- NOTE | 2025-02-23 20:42 | ECG_ITS ---
Test Reason : N/V Blood Pressure : */* mmHG Vent. Rate : 71 BPM Atrial Rate : 71 BPM P-R Int : 132 ms QRS Dur : 78 ms QT Int : 430 ms P-R-T Axes : 56 46 71 degrees QTcB Int : 467 ms Normal sinus rhythm with sinus arrhythmia T wave abnormality, consider anterior ischemia Abnormal ECG When compared with ECG of 03-Dec-2024 08:43, T wave inversion now evident in Anterior leads Referred By: Brie Samayoa Electronically Signed By: VIVI GARNER
--- NOTE | 2025-02-23 20:46 | P.HPHOSP_ITS ---
History of Present Illness Date of Service: 02/23/25 Chief Complaint: Nausea/vomiting 39-year-old female with a past medical history of recent gastric sleeve surgery about 1 month ago; pelvic floor weakness, KELL, hepatic steatosis, anemia, asthma, diabetes, hypothyroidism, hypertension presented to the hospital with a chief complaint of nausea/vomiting. Patient mentioned that over the past 3 days she has been having nausea and vomiting unable to keep anything down. Denies any abdominal discomfort. Denies any fevers. Denies any diarrhea. Denies any chest pain or palpitations. Denies any concerns for food poisoning. Review of all other systems is negative except mentioned above ER course: Per ER team, patient's exam was benign; benign abdominal examination; patient was given Zofran. CT abdomen pelvis showed no acute findings. Notified on- call. Trach surgery. On labs noted to have potassium of 2.6. Repleted. Patient was given p.o. challenge-failed. [facility] Medical History BMI 37.0-37.9, adult Encounter for IUD removal Cervical cancer screening Prediabetes IUD check up Encounter for IUD insertion Left breast lump Well woman exam Family planning Hx of transfusion of packed red blood cells Migraine Seizures Non-insulin dependent type 2 diabetes mellitus Sleep apnea treated with continuous positive airway pressure (CPAP) Hypothyroidism Elevated cholesterol Obesity (BMI 30-39.9) Supraumbilical hernia HTN (hypertension) Anemia History of hypothyroidism Diastasis recti Depression Asthma GERD (gastroesophageal reflux disease) Family History Father No problems noted. Mother HTN (hypertension) Asthma Hyperthyroidism Diabetes Paternal Aunt Breast cancer Son Asthma Son Asthma ADHD Son Asthma Daughter Autism Surgical History S/P laparoscopic sleeve gastrectomy History of esophagogastroduodenoscopy (EGD) Hx of section History of umbilical hernia repair (05/13/19) Social History Household Members: Significant Other Housing: Apartment Are you a primary rn complex care to a significant other at home: No Do you presently have visiting nurse or other home services: No Alcohol intake: former Patient Tobacco Use Status: Never used Tobacco Advance Directives: No Advance Directives Information Provided: No Do you have a plan to hurt others: No Plan Sexual orientation: Straight/Heterosexual Gender identity: Female Meds Allergies Allergy/AdvReac Type Severity Reaction Status Date / Time latex (LATEX) Allergy Intermediate HANDS SWELL Verified 02/23/25 17:05 Active Medications: Current Medications Acetaminophen (Acetaminophen 325 Mg Tablet) 650 mg PO Q6H PRN PRN Reason: Pain, Mild 1-3,fever,headache Potassium Chloride (Potassium Chloride/H20) 10 meq in 100 mls @ 100 mls/hr IV Q1H EMMETT Stop: 02/23/25 22:14 Last Admin: 02/23/25 20:41 Dose: 100 mls/hr Sodium Chloride (Ns) 1,000 mls @ 250 mls/hr IV .Q4H EMMETT Stop: 02/23/25 23:44 Last Admin: 02/23/25 20:17 Dose: 250 mls/hr Sodium Chloride (0.9 % Sodium Chloride Flush 3 Ml Syringe) [facility] Medications ?Medication ?Instructions ?Recorded ?Confirmed ?Last Taken ?Type albuterol sulfate 90 mcg/actuation 2 puff inhalation Q 4H PRN 06/17/21 01/22/25 Unknown History aerosol inhaler (ProAir HFA) Shortness Of Breath Or Wh eezing levothyroxine 137 mcg tablet 137 mcg PO QAM 02/09/23 0 01/22/25 01/13/25 History nifedipine 60 mg tablet,extended 60 mg PO QAM 06/13/24 01/14/25 01/13/25 History release Held on 01/15/25. Instructions: Resume on 01/16/25. Check your blood pressure every morning as soon as you wake up and send it to Dr. Caraballo. Do no take the blood pressure medication if the blood pressure is below 120/70. Wait every day to hear back from Dr. Caraballo before you take the medication. Physical Exam 2 Vital Signs and Narrative: Vital Signs: Last Vital Signs Temp 98.6 F 02/23/25 20:14 Pulse 65 02/23/25 20:14 Resp 18 02/23/25 20:14 BP 110/75 02/23/25 20:14 Pulse Ox 100 02/23/25 20:14 O2 Del Method Room Air 02/23/25 20:14 BMI result Body Mass Index 29.1 Gen: Appears be in no acute distress HEENT: NCAT, Moist mucosa. Pulmonary: Vesicular breath sounds, fair air entry CVS: Normal S1-S2 Abdomen: BS+, Soft, Nontender Extremities: Warm well perfused Neuro: Alert and awake. Results Labs 02/23/25 17:26 02/23/25 17:26 Labs: Laboratory Results - last 24 hr 02/23/25 02/23/25 17:26 17:42 MCV 80.3 MCH 27.3 MCHC 33.9 RDW 18.1 H Plt Count 182 D MPV 12.0 Immature Gran % (Auto) 0.4 Neut % (Auto) 60.2 Lymph % (Auto) 26.6 [place] % (Auto) 9.8 Eos % (Auto) 2.4 Baso % (Auto) 0.6 Lymph # (Auto) 1.4 [place] # (Auto) 0.5 Eos # (Auto) 0.1 Baso # (Auto) 0.0 Abs Immat Gran (auto) 0.02 Absolute Neuts (auto) 3.3 Absolute Nucleated RBC 0.000 Nucleated RBC % (auto) 0.0 Anion Gap 19 Estim Creat Clear Calc 98.9 Estimated GFR > 60 Random Glucose 102 Calcium 9.4 D Magnesium 1.8 Total Bilirubin 0.5 AST 17 ALT 14 Alkaline Phosphatase 64 Total Protein 7.9 Albumin 4.6 Lipase 116 H Beta HCG, Quant < 2 Urine Color Dark Yellow Urine Appearance Turbid Urine pH 6.5 Ur Specific [place] >= 1.030 H Urine Protein 100 (2+) H Urine Glucose (UA) Negative Urine Ketones >=160 Urine Blood Negative Urine Nitrite Negative Ur Leukocyte Esterase Trace H Urine RBC 3-5 H Urine WBC 6-10 H Ur Squamous Epith Cells >20 Other Crystals Present Urine Bacteria 3+ Hyaline Casts 3-5 Assessment and Plan (1) Gastritis: Qualifiers: Gastritis type: unspecified gastritis Chronicity: unspecified G astritis bleeding: without bleeding Qualified Code(s): K29.70 - Gastritis, unspecified, without bleeding Status: Acute Plan 39-year-old female with a past medical history of recent gastric sleeve surgery about 1 month ago; pelvic floor weakness, KELL, hepatic steatosis, anemia, asthma, diabetes, hypothyroidism, hypertension presented to the hospital with a chief complaint of nausea/vomiting. Nausea/vomiting: Recent gastric sleeve surgery: Possible gastritis: Patient failed p.o. challenge in the ER CT and pelvis showed no acute findings Bariatric surgery was notified Supportive care Advanced diet as tolerated Hypokalemia: Repleted. Monitor on telemetry. Magnesium within normal limits Diabetes: Insulin sliding scale DVT prophylaxis: Lovenox Code status: Full code Quality Stroke Does the patient have a stroke diagnosis?: No VTE Prior VTE?: No VTE Risk Level:: Medical - moderate - high VTE Device Contraindication: Treatment Not Indicated VTE Drug Contraindication: N/A - Med Ordered
[2025-02-23 21:16] VITALS: BP 103/70; PULSE 70; RESP 15; TEMP 36.9; O2SAT 99
[2025-02-23 21:33] LABS: Glucose, Whole Blood 93 mg/dL (60-115)
[2025-02-23] MEDS: Enoxaparin Sodium 40 MG/0.4 ML SYRINGE SUBCUT (21:42)
[2025-02-23] MEDS: KCl 20 mEq in 5% Dex/0.45% Sod 20 MEQ/1,000 ML IV.SOLN 100 MEQ IVCONT (22:13)
[2025-02-24] VITALS (7 sets, daily range): BP systolic 100–115; BP diastolic 60–78; PULSE 66–83; RESP 12–16; TEMP 36.3–37.2; O2SAT 99–100; BMI 29.1
[2025-02-24] MEDS: Potassium Chloride/H20 10 MEQ/100 ML PIGGYBACK 100 MEQ IV ×5 (00:48→17:55)
[2025-02-24 04:33] LABS: MANUAL DIFF FLAG NO
[2025-02-24 04:37] LABS: Basophils Percent Auto 0.6 % (0-2); Eosinophils Absolute Auto 0.1 X10*3/uL (0.0-0.4); Eosinophils Percent Auto 2.4 % (0-4); Hematocrit 35.2 % (37.0-47.0); Hemoglobin 11.5 g/dl (12.0-16.0); Imm Gran Abs Auto 0.01 X10*3/uL (0.00-0.03); Imm Gran Pct Auto 0.2 % (0.0-0.4); Lymphocytes Percent Auto 42.9 % (20-40); Mean Corpuscular HGB Conc 32.7 g/dl (31.0-35.0); Mean Corpuscular Hemoglobin 26.8 pg (27.0-33.0); Mean Corpuscular Volume 82.1 fL (80.0-98.0); Monocytes Absolute Auto 0.5 X10*3/uL (0.1-1.2); Monocytes Percent Auto 10.1 % (2-11); Neutrophils Percent Auto 43.8 % (45-73); Platelet Count 142 X10*3/uL (160-400); Red Blood Count 4.29 X10*6/uL (4.20-5.50); Red Cell Distribution Width 18.3 % (11.0-16.0); White Blood Count 4.6 X10*3/uL (4.8-10.8)
[2025-02-24 05:17] LABS: Alanine Aminotransferase 10 U/L (0-31); Albumin Level 3.6 g/dL (3.5-5.0); Alkaline Phosphatase 51 U/L (39-117); Anion Gap 15 (12-20); Aspartate Amino Transferase 16 U/L (5-31); Bilirubin Total 0.4 mg/dL (0.0-1.0); Blood Urea Nitrogen 9 mg/dL (9-16); Calcium 8.3 mg/dL (8.4-10.2); Carbon Dioxide 18 mmol/L (22-29); Chloride 109 mmol/L (96-108); Estimated Glomerular Filt Rate > 60; Glucose Random 104 mg/dL (60-115); Potassium 2.7 mmol/L (3.3-5.1); Sodium 139 mmol/L (135-145); Total Protein 6.6 g/dL (6.5-8.0)
[2025-02-24] MEDS: Potassium Chloride ER 20 MEQ TAB.ER.PRT PO (05:58)
[2025-02-24] MEDS: Potassium Chloride Packet 20 MEQ PACKET 40 MEQ PO (05:59)
--- NOTE | 2025-02-24 06:06 | PC.NURSE ---
pt given PO potassium- not tolerating well; pt states she is nauseous and having trouble swallowing tablet.
[2025-02-24 07:13] LABS: Glucose, Whole Blood 108 mg/dL (60-115)
--- NOTE | 2025-02-24 07:32 | PC.NURSE ---
This RN assumed care of patient @ 0700. Patient A&O kazakh speaking. IV bilateral forearms, currently running D5% NS0.45% 20meq at 100 ml. No discomfort noted at this time. VSS and up to date
[2025-02-24 08:02] LABS: Iron 46 mcg/dL (30-160); Percent Iron Saturation 18 % (15-50); Total Iron Binding Capacity 261 mcg/dL (228-428); Unsaturated Iron Binding 215 ug/dL
[2025-02-24] MEDS: KCl 20 mEq in 5% Dex/0.45% Sod 20 MEQ/1,000 ML IV.SOLN 100 MEQ IVCONT ×2 (08:44→17:55)
[2025-02-24] MEDS: 0.9 % Sodium Chloride Flush 3 ML SYRINGE IVFLUSH (08:45)
[2025-02-24 09:51] LABS: Chloride 107 mmol/L (96-108); Potassium 2.9 mmol/L (3.3-5.1); Sodium 139 mmol/L (135-145)
[2025-02-24 09:52] LABS: Anion Gap 16 (12-20); Blood Urea Nitrogen 9 mg/dL (9-16); Calcium 8.5 mg/dL (8.4-10.2); Carbon Dioxide 19 mmol/L (22-29); Estimated Glomerular Filt Rate > 60; Glucose Random 111 mg/dL (60-115)
--- NOTE | 2025-02-24 09:53 | PC.NURSE ---
Patient critical lab K+ 2.9, K+ trending up from 2.7 provider notified.
[2025-02-24 10:20] LABS: Folate 10.3 ng/mL (> or = 4.0); Vitamin B12 565 pg/mL (200-900)
[2025-02-24 11:13] LABS: Magnesium 1.7 mg/dL (1.6-2.6)
--- NOTE | 2025-02-24 11:42 | PHA.MEDREC ---
Addendum entered by Yang Ortiz [facility] 02/24/25 11:48: MED REC CHECKED BY [facility] Original Note: Pharmacy Consult ? Medication Reconciliation Pharmacy has completed the medication reconciliation. spoke to patient through household refrigeration mechanic service ( Conner) to confirm med list. Patient new some of her medications. Utilized claims from [facility] pharmacy to confirm med list.
[2025-02-24 13:17] LABS: Glucose, Whole Blood 95 mg/dL (60-115)
--- NOTE | 2025-02-24 16:12 | HO.PM.IMPN ---
Subjective Subjective Date of Service: 02/24/25 Interval History: f/u nausea and vomiting s/p recent gastric sleeve. Possible gastritis Continue nausea but no vomiting. Denies abdominal pain, shortness of breath, chest pain, fever or chills. Review of Systems Review of Systems: Yes all other systems are reviewed and are negative Physical Exam Vital Signs: Vital Signs: Last Vital Signs Temp 98.7 F 02/24/25 12:51 Pulse 76 02/24/25 12:51 Resp 16 02/24/25 12:51 BP 100/60 02/24/25 12:51 Pulse Ox 99 02/24/25 12:51 O2 Del Method Room Air 02/24/25 12:51 BMI result Body Mass Index 29.1 General: AOx3, dry heaving, seen with hazardous waste material technician Resp: CTA bilaterally CVS: S1, S2, RRR GI: +BS, NT, no distention Skin: Warm, dry Neuro: Cranial nerves II-XII grossly intact bilaterally. Motor grossly intact bilaterally Extremities: No LE edema Psych: Appropriate affect Objective Data Active Medications Acetaminophen (Acetaminophen 325 Mg Tablet) 650 mg PO Q6H PRN PRN Reason: Pain, Mild 1-3,fever,headache Calcium Carbonate (Calcium Carbonate 750 Mg Tab.Chew) 750 mg PO Q4H PRN PRN Reason: Heartburn Dextrose (Dextrose 50 % 25 Gm/50 Ml Syringe) 25 gm IVPUSH Q15M PRN; Protocol PRN Reason: per Hypoglycemia Standing Ord. Enoxaparin Sodium (Enoxaparin Sodium 40 Mg/0.4 Ml Syringe) 40 mg SUBCUT Q24H [facility] Last Admin: 02/23/25 21:42 Dose: 40 mg Documented By: FRANCISCO Glucose (Glucose Gel 15 Gm Gel..Gram.) 15 gm PO Q15M PRN; Protocol PRN Reason: per Hypoglycemia Standing Ord. Potassium Chloride/Dextrose/Sod Cl (Kcl 20 Meq In 5% Dex/0.45% Sod) 20 meq in 1,000 mls @ 100 mls/hr IVCONT .Q10H [facility] Last Admin: 02/24/25 08:44 Dose: 100 mls/hr Documented By: NITISH Insulin Human Lispro (Insulin Lispro 100 Unit/Ml 3 Ml Vial) 0 unit SUBCUT QIDACHS [facility]; Protocol Last Admin: 02/24/25 13:37 Dose: Not Given Documented By: NITISH Non-Admin Reason: No Insulin Coverage Magnesium Hydroxide (Milk Of Magnesia 30 Ml Oral.Susp) 30 ml PO DAILY PRN PRN Reason: Constipation Melatonin (Melatonin 3 Mg Tablet) 6 mg PO BEDTIME PRN PRN Reason: Insomnia Ondansetron HCl (Ondansetron Hcl 4 Mg/2 Ml Vial) 4 mg IVPUSH Q8H PRN PRN Reason: Nausea and Vomiting Sodium Chloride (0.9 % Sodium Chloride Flush 3 Ml Syringe) 3 ml IVFLUSH QSHIFT [facility] Last Admin: 02/24/25 15:26 Dose: Not Given Documented By: MARIA INES Non-Admin Reason: IV Running Labs 02/24/25 04:00 02/24/25 09:15 Labs: Laboratory Results - last 24 hr 02/23/25 02/23/25 02/23/25 17:26 17:42 21:30 MCV 80.3 MCH 27.3 MCHC 33.9 RDW 18.1 H Plt Count 182 D MPV 12.0 Immature Gran % (Auto) 0.4 Neut % (Auto) 60.2 Lymph % (Auto) 26.6 [place] % (Auto) 9.8 Eos % (Auto) 2.4 Baso % (Auto) 0.6 Lymph # (Auto) 1.4 [place] # (Auto) 0.5 Eos # (Auto) 0.1 Baso # (Auto) 0.0 Abs Immat Gran (auto) 0.02 Absolute Neuts (auto) 3.3 Absolute Nucleated RBC 0.000 Nucleated RBC % (auto) 0.0 Anion Gap 19 Estim Creat Clear Calc 98.9 Estimated GFR > 60 POC Glucose 93 Random Glucose 102 Calcium 9.4 D Magnesium 1.8 Iron TIBC % Saturation Unsat Iron Binding Total Bilirubin 0.5 AST 17 ALT 14 Alkaline Phosphatase 64 Total Protein 7.9 Albumin 4.6 Lipase 116 H Vitamin B12 Folate Beta HCG, Quant < 2 Urine Color Dark Yellow Urine Appearance Turbid Urine pH 6.5 Ur Specific [place] >= 1.030 H Urine Protein 100 (2+) H Urine Glucose (UA) Negative Urine Ketones >=160 Urine Blood Negative Urine Nitrite Negative Ur Leukocyte Esterase Trace H Urine RBC 3-5 H Urine WBC 6-10 H Ur Squamous Epith Cells >20 Other Crystals Present Urine Bacteria 3+ Hyaline Casts 3-5 02/24/25 02/24/25 02/24/25 04:00 07:05 09:15 MCV 82.1 MCH 26.8 L MCHC 32.7 RDW 18.3 H Plt Count 142 L MPV 12.0 Immature Gran % (Auto) 0.2 Neut % (Auto) 43.8 L Lymph % (Auto) 42.9 H [place] % (Auto) 10.1 Eos % (Auto) 2.4 Baso % (Auto) 0.6 Lymph # (Auto) 2.0 [place] # (Auto) 0.5 Eos # (Auto) 0.1 Baso # (Auto) 0.0 Abs Immat Gran (auto) 0.01 Absolute Neuts (auto) 2.0 Absolute Nucleated RBC 0.000 Nucleated RBC % (auto) 0.0 Anion Gap 15 16 Estim Creat Clear Calc 124.0 113.0 Estimated GFR > 60 > 60 POC Glucose 108 Random Glucose 104 111 Calcium 8.3 L D 8.5 Magnesium 1.7 Iron 46 TIBC 261 % Saturation 18 Unsat Iron Binding 215 Total Bilirubin 0.4 AST 16 ALT 10 Alkaline Phosphatase 51 Total Protein 6.6 Albumin 3.6 Lipase Vitamin B12 565 Folate 10.3 Beta HCG, Quant Urine Color Urine Appearance Urine pH Ur Specific [place] Urine Protein Urine Glucose (UA) Urine Ketones Urine Blood Urine Nitrite Ur Leukocyte Esterase Urine RBC Urine WBC Ur Squamous Epith Cells Other Crystals Urine Bacteria Hyaline Casts 02/24/25 13:11 MCV MCH MCHC RDW Plt Count MPV Immature Gran % (Auto) Neut % (Auto) Lymph % (Auto) [place] % (Auto) Eos % (Auto) Baso % (Auto) Lymph # (Auto) [place] # (Auto) Eos # (Auto) Baso # (Auto) Abs Immat Gran (auto) Absolute Neuts (auto) Absolute Nucleated RBC Nucleated RBC % (auto) Anion Gap Estim Creat Clear Calc Estimated GFR POC Glucose 95 Random Glucose Calcium Magnesium Iron TIBC % Saturation Unsat Iron Binding Total Bilirubin AST ALT Alkaline Phosphatase Total Protein Albumin Lipase Vitamin B12 Folate Beta HCG, Quant Urine Color Urine Appearance Urine pH Ur Specific [place] Urine Protein Urine Glucose (UA) Urine Ketones Urine Blood Urine Nitrite Ur Leukocyte Esterase Urine RBC Urine WBC Ur Squamous Epith Cells Other Crystals Urine Bacteria Hyaline Casts Microbiology Microbiology Results: Microbiology 02/23/25 17:42 Urine Culture - Preliminary Urine clean catch - Clean Catch Midstream No growth to date. Assessment and Plan (1) S/P laparoscopic sleeve gastrectomy: Status: Acute (2) Gastritis: Status: Acute (3) Nausea & vomiting: Status: Acute (4) Hypokalemia: Status: Acute Plan 39-year-old female with a past medical history of recent gastric sleeve surgery about 1 month ago; pelvic floor weakness, KELL, hepatic steatosis, anemia, asthma, diabetes, hypothyroidism, hypertension admitted to the hospital for intractable nausea and vomiting with hypokalemia Nausea/vomiting: Recent gastric sleeve surgery: Possible gastritis: Patient failed p.o. challenge in the ER CT and pelvis showed no acute findings Bariatric surgery consulted Supportive care Advanced diet as tolerated Hypokalemia: Continues to have low potassium despite repletion. Continue IV fluids Potassium 40 mEq IV Monitor on telemetry. Magnesium within normal limits Diabetes: Insulin sliding scale Clear liquid diet DVT prophylaxis: Lovenox Code status: Full code Quality Stroke Does the patient have a stroke diagnosis?: No VTE Prior VTE?: No VTE Risk Level:: Medical - moderate - high VTE Device Contraindication: Treatment Not Indicated VTE Drug Contraindication: N/A - Med Ordered
[2025-02-24 16:47] LABS: Anion Gap 13 (12-20); Blood Urea Nitrogen 8 mg/dL (9-16); Calcium 8.4 mg/dL (8.4-10.2); Carbon Dioxide 20 mmol/L (22-29); Chloride 108 mmol/L (96-108); Creatinine Clr Calc Pharmacy 129.1; Estimated Glomerular Filt Rate > 60; Glucose Random 113 mg/dL (60-115); Magnesium 1.6 mg/dL (1.6-2.6); Potassium 3.1 mmol/L (3.3-5.1); Sodium 138 mmol/L (135-145)
[2025-02-24] MEDS: ondansetron HCL 4 MG/2 ML VIAL IVPUSH (17:39)
[2025-02-24 18:14] LABS: Glucose, Whole Blood 98 mg/dL (60-115)
--- NOTE | 2025-02-24 18:18 | MHC.EDTECH ---
Patient given dinner tray of clear liquids
[2025-02-24 21:03] LABS: Glucose, Whole Blood 96 mg/dL (60-115)
[2025-02-24] MEDS: Sucralfate Oral Suspension 1 GM/10 ML ORAL.SUSP PO (21:03)
[2025-02-24] MEDS: Docusate Sodium 100 MG CAPSULE PO (21:03)
[2025-02-24] MEDS: Enoxaparin Sodium 40 MG/0.4 ML SYRINGE SUBCUT (21:03)
[2025-02-24 21:12] LABS: Anion Gap 12 (12-20); Blood Urea Nitrogen 6 mg/dL (9-16); Calcium 7.6 mg/dL (8.4-10.2); Carbon Dioxide 18 mmol/L (22-29); Chloride 110 mmol/L (96-108); Creatinine Clr Calc Pharmacy 131.8; Estimated Glomerular Filt Rate > 60; Glucose Random 107 mg/dL (60-115); Potassium 3.3 mmol/L (3.3-5.1); Sodium 137 mmol/L (135-145)
[2025-02-25 03:21] VITALS: BP 102/57; PULSE 63; RESP 16; TEMP 36.2; O2SAT 100
[2025-02-25] MEDS: KCl 20 mEq in 5% Dex/0.45% Sod 20 MEQ/1,000 ML IV.SOLN 100 MEQ IVCONT (03:23)
[2025-02-25] MEDS: Levothyroxine Sodium 112 MCG, Levothyroxine Sodium 25 MCG 137 MCG PO (05:51)
[2025-02-25] MEDS: Omeprazole 20 MG CAPSULE.DR PO (05:51)
[2025-02-25 06:14] LABS: MANUAL DIFF FLAG NO
[2025-02-25 06:24] LABS: Basophils Percent Auto 0.4 % (0-2); Eosinophils Absolute Auto 0.1 X10*3/uL (0.0-0.4); Eosinophils Percent Auto 2.1 % (0-4); Hematocrit 36.8 % (37.0-47.0); Hemoglobin 12.4 g/dl (12.0-16.0); Imm Gran Abs Auto 0.02 X10*3/uL (0.00-0.03); Imm Gran Pct Auto 0.4 % (0.0-0.4); Lymphocytes Absolute Auto 1.6 X10*3/uL (1.2-4.9); Lymphocytes Percent Auto 30.7 % (20-40); Mean Corpuscular HGB Conc 33.7 g/dl (31.0-35.0); Mean Corpuscular Hemoglobin 27.4 pg (27.0-33.0); Mean Corpuscular Volume 81.2 fL (80.0-98.0); Mean Platelet Volume 12.7 fL (9.4-12.3); Monocytes Absolute Auto 0.5 X10*3/uL (0.1-1.2); Monocytes Percent Auto 8.7 % (2-11); Neutrophils Percent Auto 57.7 % (45-73); Platelet Count 130 X10*3/uL (160-400); Red Blood Count 4.53 X10*6/uL (4.20-5.50); Red Cell Distribution Width 18.3 % (11.0-16.0); White Blood Count 5.2 X10*3/uL (4.8-10.8)
[2025-02-25 07:16] LABS: Anion Gap 13 (12-20); Blood Urea Nitrogen 3 mg/dL (9-16); Calcium 8.2 mg/dL (8.4-10.2); Carbon Dioxide 20 mmol/L (22-29); Chloride 109 mmol/L (96-108); Creatinine Clr Calc Pharmacy 143.8; Estimated Glomerular Filt Rate > 60; Glucose Random 110 mg/dL (60-115); Potassium 2.8 mmol/L (3.3-5.1); Sodium 139 mmol/L (135-145)
[2025-02-25 07:21] VITALS: BP 114/67; PULSE 74; RESP 16; TEMP 36.7; O2SAT 97
[2025-02-25 07:31] LABS: Glucose, Whole Blood 121 mg/dL (60-115)
[2025-02-25] MEDS: Sucralfate Oral Suspension 1 GM/10 ML ORAL.SUSP PO ×2 (08:08→19:52)
[2025-02-25] MEDS: Docusate Sodium 100 MG CAPSULE PO ×2 (08:08→19:53)
[2025-02-25] MEDS: Potassium Chloride/H20 10 MEQ/100 ML PIGGYBACK 100 MEQ IV ×4 (08:12→13:57)
[2025-02-25 08:29] LABS: Magnesium 1.5 mg/dL (1.6-2.6)
[2025-02-25] MEDS: ondansetron HCL 4 MG/2 ML VIAL IVPUSH (08:56)
--- NOTE | 2025-02-25 09:19 | MHC.CM.PN ---
This CM met with pt with the assistance of a search engine optimization manager. Pt self-care, lives at home with her and 4 children. She will arrange her own transport home at discharge. New HCP completed with pt, now on file. PCP: Dr. Sarah Galdamez
--- NOTE | 2025-02-25 09:55 | PM.CNGS ---
History of Present Illness Consult details Consult date: 02/25/25 Reason for consult: abdominal pain Narrative: 39 yo female s/p LSG on 01/14/25, last seen in the office 02/12/25 and was doing well. Has been in communication with Dr Caraballo weekly and was toelrating her meal plan until Monday evening when she began to experience N/V. She denied dietary indescretions and was following the plans. She felt it would just go away but when it did not, she presented to the ER on Monday. She was found to have hypokalemia of 2.6 and was admitted to [facility]. CT in the ER was negative for pathology. Since admission she has recieved IVF, IV K+ supplementation and has no further abdominal pain, N/V. Tolerating clear liqs. [facility] Past Medical History Medical History BMI 37.0-37.9, adult Encounter for IUD removal Cervical cancer screening Prediabetes IUD check up Encounter for IUD insertion Left breast lump Well woman exam Family planning Hx of transfusion of packed red blood cells Migraine Seizures Non-insulin dependent type 2 diabetes mellitus Sleep apnea treated with continuous positive airway pressure (CPAP) Hypothyroidism Elevated cholesterol Obesity (BMI 30-39.9) Supraumbilical hernia HTN (hypertension) Anemia History of hypothyroidism Diastasis recti Depression Asthma GERD (gastroesophageal reflux disease) Family History Family History Father No problems noted. Mother HTN (hypertension) Asthma Hyperthyroidism Diabetes Paternal Aunt Breast cancer Son Asthma Son Asthma ADHD Son Asthma Daughter Autism Surgical History Surgical History S/P laparoscopic sleeve gastrectomy History of esophagogastroduodenoscopy (EGD) Hx of section History of umbilical hernia repair (05/13/19) Social History Social History Household Members: Spouse Housing: Apartment Are you a primary attending ambulatory care to a significant other at home: No Do you presently have visiting nurse or other home services: No Alcohol intake: former Comment: Patient gait and balance are steady. Patient Tobacco Use Status: Never used Tobacco service: No Sexual orientation: Straight/Heterosexual Gender identity: Female Meds Allergies Allergy/AdvReac Type Severity Reaction Status Date / Time latex (LATEX) Allergy Intermediate HANDS SWELL Verified 02/23/25 17:05 Active Medications: Current Medications Acetaminophen (Acetaminophen 325 Mg Tablet) 650 mg PO Q6H PRN PRN Reason: Pain, Mild 1-3,fever,headache Calcium Carbonate (Calcium Carbonate 750 Mg Tab.Chew) 750 mg PO Q4H PRN PRN Reason: Heartburn Dextrose (Dextrose 50 % 25 Gm/50 Ml Syringe) 25 gm IVPUSH Q15M PRN; Protocol PRN Reason: per Hypoglycemia Standing Ord. Docusate Sodium (Docusate Sodium 100 Mg Capsule) 100 mg PO BID [facility] Last Admin: 02/25/25 08:08 Dose: 100 mg Enoxaparin Sodium (Enoxaparin Sodium 40 Mg/0.4 Ml Syringe) 40 mg SUBCUT Q24H [facility] Last Admin: 02/24/25 21:03 Dose: 40 mg Glucose (Glucose Gel 15 Gm Gel..Gram.) 15 gm PO Q15M PRN; Protocol PRN Reason: per Hypoglycemia Standing Ord. Potassium Chloride/Dextrose/Sod Cl (Kcl 20 Meq In 5% Dex/0.45% Sod) 20 meq in 1,000 mls @ 150 mls/hr IVCONT .Q6H40M [facility] Last Admin: 02/25/25 03:23 Dose: 100 mls/hr Potassium Chloride (Potassium Chloride/H20) 10 meq in 100 mls @ 100 mls/hr IV Q1H [facility] Stop: 02/25/25 12:14 Last Admin: 02/25/25 09:43 Dose: 100 mls/hr Insulin Human Lispro (Insulin Lispro 100 Unit/Ml 3 Ml Vial) 0 unit SUBCUT QIDACHS [facility]; Protocol Last Admin: 02/25/25 07:35 Dose: Not Given Levothyroxine Sodium 112 mcg/ (Levothyroxine Sodium 25 mcg) 137 mcg PO DAILY@0600 [facility] Last Admin: 02/25/25 05:51 Dose: 137 mcg Magnesium Hydroxide (Milk Of Magnesia 30 Ml Oral.Susp) 30 ml PO DAILY PRN PRN Reason: Constipation Melatonin (Melatonin 3 Mg Tablet) 6 mg PO BEDTIME PRN PRN Reason: Insomnia Ondansetron HCl (Ondansetron Hcl 4 Mg/2 Ml Vial) 4 mg IVPUSH Q8H PRN PRN Reason: Nausea and Vomiting Last Admin: 02/25/25 08:56 Dose: 4 mg Pantoprazole Sodium (Pantoprazole Sodium 40 Mg/10 Ml Vial) 40 mg IVPUSH DAILY@06 [facility] Sodium Chloride (0.9 % Sodium Chloride Flush 3 Ml Syringe) 3 ml IVFLUSH QSHIFT [facility] Last Admin: 02/25/25 08:08 Dose: Not Given Sucralfate (Sucralfate Oral Suspension 1 Gm/10 Ml Oral.Susp) 1 gm PO BID [facility] Last Admin: 02/25/25 08:08 Dose: 1 gm Home Medications ?Medication ?Instructions ?Recorded ?Confirmed ?Last Taken ?Type levothyroxine 137 mcg tablet 137 mcg PO DAILY@0600 02/09/23 02/24/25 02/21/25 History Physical Exam Vital Signs: Vital Signs: Last Vital Signs Temp 98.0 F 02/25/25 07:21 Pulse 74 02/25/25 07:21 Resp 16 02/25/25 07:21 BP 114/67 02/25/25 07:21 Pulse Ox 97 02/25/25 07:21 O2 Del Method Room Air 02/25/25 07:21 BMI result Body Mass Index 29.1 Const: General: healthy appearing and no acute distress Resp: Effort & Inspection: normal respiratory effort Auscultation: clear to auscultation bilaterally Cardio: Rate: regular rate Rhythm: regular rhythm GI: Auscultation: normal bowel sounds Extrem: General: Yes normal to inspection Results Labs 02/25/25 06:02 02/25/25 06:02 Labs: Abnormal lab results 02/24/25 02/24/25 02/25/25 Range/Units 16:24 20:54 06:02 Hct 36.8 L (37.0-47.0) % RDW 18.3 H (11.0-16.0) % Plt Count 130 L (160-400) X10*3/uL MPV 12.7 H (9.4-12.3) fL Potassium 3.1 L 2.8 L* (3.3-5.1) mmol/L Chloride 110 H 109 H (96-108) mmol/L Carbon Dioxide 20 L 18 L 20 L (22-29) mmol/L BUN 8 L 6 L 3 L (9-16) mg/dL Creatinine 0.49 L 0.48 L 0.44 L (0.5-1.4) mg/dL POC Glucose (60-115) mg/dL Calcium 7.6 L D 8.2 L D (8.4-10.2) mg/dL Magnesium 1.5 L (1.6-2.6) mg/dL 02/25/25 Range/Units 07:27 Hct (37.0-47.0) % RDW (11.0-16.0) % Plt Count (160-400) X10*3/uL MPV (9.4-12.3) fL Potassium (3.3-5.1) mmol/L Chloride (96-108) mmol/L Carbon Dioxide (22-29) mmol/L BUN (9-16) mg/dL Creatinine (0.5-1.4) mg/dL POC Glucose 121 H (60-115) mg/dL Calcium (8.4-10.2) mg/dL Magnesium (1.6-2.6) mg/dL Short CBC 02/25/25 Range/Units 06:02 WBC 5.2 (4.8-10.8) X10*3/uL Hgb 12.4 (12.0-16.0) g/dl Hct 36.8 L (37.0-47.0) % Plt Count 130 L (160-400) X10*3/uL BMP 02/24/25 02/24/25 02/25/25 16:24 20:54 06:02 Sodium 138 137 139 Potassium 3.1 L 3.3 2.8 L* Chloride 108 110 H 109 H Carbon Dioxide 20 L 18 L 20 L BUN 8 L 6 L 3 L Creatinine 0.49 L 0.48 L 0.44 L Calcium 8.4 7.6 L D 8.2 L D Urine 02/23/25 Range/Units 17:42 Urine Color Dark Yellow Urine Appearance Turbid Urine pH 6.5 (5.0-9.0) Ur Specific [place] >= 1.030 H (1.005-1.025) Urine Protein 100 (2+) H (Neg-Trace) mg/dL Urine Glucose (UA) Negative (Negative) mg/dL All other labs normal. Assessment and Plan (1) S/P laparoscopic sleeve gastrectomy: Status: Acute S/P LSG on 5/13/25. F/U in office 03/19/25. Abd pain and hypokalemia not appearing to be related to recent procedure. May be due to viral gastroenteritis that appears to be resolved. Once discharged she should resume her previous meal plan with 3 celebrate rebuild shakes and a celebrate protein bar as previously arranged. May give one Ensure max protein shake today (2) Acute hypokalemia: Status: Acute incr to 60 IV K+ replacement today and continue IVF. DC home once stable Plan discussed with Dr Caraballo Procedures Date of Service Date of Service: 02/25/25
[2025-02-25 11:25] VITALS: BP 105/65; PULSE 75; RESP 15; TEMP 36.9; O2SAT 95
[2025-02-25 11:32] LABS: Glucose, Whole Blood 111 mg/dL (60-115)
--- NOTE | 2025-02-25 13:39 | P.PNIM_ITS ---
Subjective Subjective Date of Service: 02/25/25 Interval History: Follow-up nausea, vomiting, gastritis, hypokalemia Patient reports nausea and vomiting still, vomiting started again last night No hematemesis or abdominal pain No chest pain or shortness of breath Review of Systems Review of Systems: Yes all other systems are reviewed and are negative Constitutional Constitutional: Denies body ache(s), Denies chills, Denies fever(s) and Denies headache(s) ENT Ears, Nose, Mouth, and Throat: Denies headache(s) Cardiovascular Cardiovascular: Denies chest pain and Denies dyspnea Respiratory Respiratory: Denies cough and Denies dyspnea Neurologic Neurologic: Denies headache(s) Physical Exam 2 Vital Signs: Vital Signs: Last Vital Signs Temp 98.5 F 02/25/25 11:25 Pulse 75 02/25/25 11:25 Resp 15 02/25/25 11:25 BP 105/65 02/25/25 11:25 Pulse Ox 95 02/25/25 11:25 O2 Del Method Room Air 02/25/25 11:25 BMI result Body Mass Index 29.1 General: AOx3, no acute distress Resp: CTA bilaterally CVS: S1, S2, RRR GI: +BS, NT, no distention Skin: Warm, dry Neuro: Cranial nerves II-XII grossly intact bilaterally. Motor grossly intact bilaterally Extremities: No LE edema Psych: Appropriate affect Objective Data Active Medications Acetaminophen (Acetaminophen 325 Mg Tablet) 650 mg PO Q6H PRN PRN Reason: Pain, Mild 1-3,fever,headache Calcium Carbonate (Calcium Carbonate 750 Mg Tab.Chew) 750 mg PO Q4H PRN PRN Reason: Heartburn Dextrose (Dextrose 50 % 25 Gm/50 Ml Syringe) 25 gm IVPUSH Q15M PRN; Protocol PRN Reason: per Hypoglycemia Standing Ord. Docusate Sodium (Docusate Sodium 100 Mg Capsule) 100 mg PO BID [facility] Last Admin: 02/25/25 08:08 Dose: 100 mg Documented By: [facility] Enoxaparin Sodium (Enoxaparin Sodium 40 Mg/0.4 Ml Syringe) 40 mg SUBCUT Q24H [facility] Last Admin: 02/24/25 21:03 Dose: 40 mg Documented By: ROSCOE Glucose (Glucose Gel 15 Gm Gel..Gram.) 15 gm PO Q15M PRN; Protocol PRN Reason: per Hypoglycemia Standing Ord. Potassium Chloride/Dextrose/Sod Cl (Kcl 20 Meq In 5% Dex/0.45% Sod) 20 meq in 1,000 mls @ 150 mls/hr IVCONT .Q6H40M [facility] Last Admin: 02/25/25 03:23 Dose: 100 mls/hr Documented By: ANUPAMA Magnesium Sulfate (Magnesium Sulfate/H2o) 2 gm in 50 mls @ 25 mls/hr IV ONCE ONE Stop: 02/25/25 15:37 Insulin Human Lispro (Insulin Lispro 100 Unit/Ml 3 Ml Vial) 0 unit SUBCUT QIDACHS [facility]; Protocol Last Admin: 02/25/25 12:34 Dose: Not Given Documented By: [facility] Non-Admin Reason: No Insulin Coverage Levothyroxine Sodium 112 mcg/ (Levothyroxine Sodium 25 mcg) 137 mcg PO DAILY@0600 [facility] Last Admin: 02/25/25 05:51 Dose: 137 mcg Documented By: ANUPAMA Magnesium Hydroxide (Milk Of Magnesia 30 Ml Oral.Susp) 30 ml PO DAILY PRN PRN Reason: Constipation Melatonin (Melatonin 3 Mg Tablet) 6 mg PO BEDTIME PRN PRN Reason: Insomnia Ondansetron HCl (Ondansetron Hcl 4 Mg/2 Ml Vial) 4 mg IVPUSH Q8H PRN PRN Reason: Nausea and Vomiting Last Admin: 02/25/25 08:56 Dose: 4 mg Documented By: [facility] Pantoprazole Sodium (Pantoprazole Sodium 40 Mg/10 Ml Vial) 40 mg IVPUSH BID@0630,1630 [facility] Sodium Chloride (0.9 % Sodium Chloride Flush 3 Ml Syringe) 3 ml IVFLUSH QSHIFT [facility] Last Admin: 02/25/25 08:08 Dose: Not Given Documented By: [facility] Non-Admin Reason: IV Running Sucralfate (Sucralfate Oral Suspension 1 Gm/10 Ml Oral.Susp) 1 gm PO BID [facility] Last Admin: 02/25/25 08:08 Dose: 1 gm Documented By: [facility] Labs 02/25/25 06:02 02/25/25 06:02 Labs: Laboratory Results - last 24 hr 02/24/25 02/24/25 02/24/25 16:24 18:09 20:54 MCV MCH MCHC RDW Plt Count MPV Immature Gran % (Auto) Neut % (Auto) Lymph % (Auto) [place] % (Auto) Eos % (Auto) Baso % (Auto) Lymph # (Auto) [place] # (Auto) Eos # (Auto) Baso # (Auto) Abs Immat Gran (auto) Absolute Neuts (auto) Absolute Nucleated RBC Nucleated RBC % (auto) Anion Gap 13 12 Estim Creat Clear Calc 129.1 131.8 Estimated GFR > 60 > 60 POC Glucose 98 Random Glucose 113 107 Calcium 8.4 7.6 L D Magnesium 1.6 02/24/25 02/25/25 02/25/25 20:57 06:02 07:27 MCV 81.2 MCH 27.4 MCHC 33.7 RDW 18.3 H Plt Count 130 L MPV 12.7 H Immature Gran % (Auto) 0.4 Neut % (Auto) 57.7 Lymph % (Auto) 30.7 [place] % (Auto) 8.7 Eos % (Auto) 2.1 Baso % (Auto) 0.4 Lymph # (Auto) 1.6 [place] # (Auto) 0.5 Eos # (Auto) 0.1 Baso # (Auto) 0.0 Abs Immat Gran (auto) 0.02 Absolute Neuts (auto) 3.0 Absolute Nucleated RBC 0.000 Nucleated RBC % (auto) 0.0 Anion Gap 13 Estim Creat Clear Calc 143.8 Estimated GFR > 60 POC Glucose 96 121 H Random Glucose 110 Calcium 8.2 L D Magnesium 1.5 L 02/25/25 11:28 MCV MCH MCHC RDW Plt Count MPV Immature Gran % (Auto) Neut % (Auto) Lymph % (Auto) [place] % (Auto) Eos % (Auto) Baso % (Auto) Lymph # (Auto) [place] # (Auto) Eos # (Auto) Baso # (Auto) Abs Immat Gran (auto) Absolute Neuts (auto) Absolute Nucleated RBC Nucleated RBC % (auto) Anion Gap Estim Creat Clear Calc Estimated GFR POC Glucose 111 Random Glucose Calcium Magnesium Microbiology Microbiology Results: Microbiology 02/23/25 17:42 Urine Culture - Final Urine clean catch - Clean Catch Midstream Lactobacillus species Assessment and Plan (1) Gastritis: Status: Acute (2) Nausea & vomiting: Status: Acute (3) Acute hypokalemia: Status: Acute (4) Hypomagnesemia: Status: Acute Plan Follow-up gastritis, nausea, vomiting, hypokalemia, hypomagnesemia Nausea/vomiting: Recent gastric sleeve surgery - unrelated per bariatric CT and pelvis showed no acute findings Sucralfate, pantoprazole, zofran Clear liquid diet Re-consult bariatric if no improvement tomorrow Hypokalemia: Continues to have low potassium despite repletion Continue IV fluids Potassium 40 mEq IV Monitor on telemetry Hypomagnesemia mag 1.5, give 2g IV Diabetes: Insulin sliding scale Clear liquid diet DVT prophylaxis: Lovenox Code status: Full code Quality Stroke Does the patient have a stroke diagnosis?: No VTE Prior VTE?: No VTE Risk Level:: Medical - moderate - high VTE Device Contraindication: Treatment Not Indicated VTE Drug Contraindication: N/A - Med Ordered
[2025-02-25 15:27] VITALS: BP 99/62; PULSE 80; RESP 16; TEMP 36.2; O2SAT 99
[2025-02-25] MEDS: Lactated Ringers 1,000 ML 80 ML IVCONT (16:11)
[2025-02-25] MEDS: Magnesium Sulfate/H2O 2 GM/50 ML PIGGYBACK IV (16:11)
[2025-02-25] MEDS: Pantoprazole Sodium 40 MG/10 ML VIAL IVPUSH (16:12)
[2025-02-25 16:18] LABS: Glucose, Whole Blood 105 mg/dL (60-115)
[2025-02-25 16:55] LABS: Anion Gap 11 (12-20); Blood Urea Nitrogen < 3 mg/dL (9-16); Carbon Dioxide 22 mmol/L (22-29); Chloride 108 mmol/L (96-108); Creatinine Clr Calc Pharmacy 134.6; Estimated Glomerular Filt Rate > 60; Glucose Random 102 mg/dL (60-115); Potassium 3.1 mmol/L (3.3-5.1); Sodium 138 mmol/L (135-145)
[2025-02-25 16:56] LABS: Magnesium 1.4 mg/dL (1.6-2.6)
[2025-02-25 19:52] VITALS: BP 115/67; PULSE 74; RESP 16; TEMP 36.4; O2SAT 98
[2025-02-25] MEDS: Enoxaparin Sodium 40 MG/0.4 ML SYRINGE SUBCUT (19:52)
[2025-02-25] MEDS: 0.9 % Sodium Chloride Flush 3 ML SYRINGE IVFLUSH (19:53)
[2025-02-25 20:50] LABS: Glucose, Whole Blood 97 mg/dL (60-115)
[2025-02-25 23:21] VITALS: BP 110/64; PULSE 69; RESP 16; TEMP 36.5; O2SAT 98
[2025-02-26 03:58] VITALS: BP 105/62; PULSE 66; RESP 16; TEMP 36; O2SAT 99
[2025-02-26] MEDS: Pantoprazole Sodium 40 MG/10 ML VIAL IVPUSH ×2 (05:32→17:04)
[2025-02-26] MEDS: Levothyroxine Sodium 112 MCG, Levothyroxine Sodium 25 MCG 137 MCG PO (05:32)
[2025-02-26 07:17] LABS: MANUAL DIFF FLAG NO
[2025-02-26 07:24] LABS: Basophils Percent Auto 0.5 % (0-2); Eosinophils Absolute Auto 0.1 X10*3/uL (0.0-0.4); Hematocrit 33.7 % (37.0-47.0); Hemoglobin 11.2 g/dl (12.0-16.0); Lymphocytes Absolute Auto 1.4 X10*3/uL (1.2-4.9); Lymphocytes Percent Auto 34.8 % (20-40); Mean Corpuscular HGB Conc 33.2 g/dl (31.0-35.0); Mean Corpuscular Hemoglobin 27.2 pg (27.0-33.0); Mean Corpuscular Volume 81.8 fL (80.0-98.0); Mean Platelet Volume 12.3 fL (9.4-12.3); Monocytes Absolute Auto 0.4 X10*3/uL (0.1-1.2); Monocytes Percent Auto 10.8 % (2-11); Neutrophils Percent Auto 50.9 % (45-73); Platelet Count 119 X10*3/uL (160-400); Red Blood Count 4.12 X10*6/uL (4.20-5.50); Red Cell Distribution Width 18.1 % (11.0-16.0)
[2025-02-26 07:26] LABS: Glucose, Whole Blood 88 mg/dL (60-115)
[2025-02-26 07:33] VITALS: BP 111/64; PULSE 75; RESP 16; TEMP 36.3; O2SAT 98
[2025-02-26 07:38] LABS: Blood Urea Nitrogen < 3 mg/dL (9-16); Calcium 8.5 mg/dL (8.4-10.2); Creatinine Clr Calc Pharmacy 137.5; Estimated Glomerular Filt Rate > 60; Glucose Random 90 mg/dL (60-115)
[2025-02-26 07:50] LABS: Anion Gap 12 (12-20); Carbon Dioxide 23 mmol/L (22-29); Chloride 106 mmol/L (96-108); Potassium 2.6 mmol/L (3.3-5.1); Sodium 138 mmol/L (135-145)
[2025-02-26 08:21] LABS: Magnesium 1.9 mg/dL (1.6-2.6)
[2025-02-26] MEDS: Potassium Chloride/H20 10 MEQ/100 ML PIGGYBACK 100 MEQ IV ×7 (10:37→23:46)
[2025-02-26] MEDS: Sucralfate Oral Suspension 1 GM/10 ML ORAL.SUSP PO ×2 (10:37→20:57)
[2025-02-26] MEDS: Lactated Ringers 1,000 ML 80 ML IVCONT ×2 (10:39→22:18)
[2025-02-26 11:24] VITALS: BP 110/70; PULSE 79; RESP 16; TEMP 36.6; O2SAT 99
[2025-02-26 11:30] LABS: Glucose, Whole Blood 98 mg/dL (60-115)
--- NOTE | 2025-02-26 13:00 | PM.CNNEP ---
History of Present Illness Reason for Consult Consult date: 02/26/25 Chief Complaint Chief complaint: Hypokalemia History of Present Illness Narrative: 39 y/o female with a medical history of gastric sleeve surgery (reports on 01/14/25), pelvic floor weakness, KELL, hepatic steatosis, anemia, asthma, diabetes, hypothyroidism, HTN. Presented 02/23 with nausea, vomiting, unable to keep oral intake down. Potassium was 2.6. She states she has not actually vomited prior to or during admission, but rather bringing up saliva and feeling nauseous states she is currently feeling well, denies pain, nausea, vomiting. Denies chest pain, abdominal pain, shortness of breath, urinary symptoms, lower extremity edema. states she is here because of low potassium. States she has not had this problem in the past Review of Systems Constitutional: Reports no additional constitutional complaints and Denies weakness Cardiovascular: Denies chest pain, Denies leg edema, Denies lightheadedness and Denies dyspnea Respiratory: Denies dyspnea Gastrointestinal: Denies abdominal pain, Denies diarrhea, Denies nausea and Denies vomiting Genitourinary: Denies difficulty voiding, Denies dysuria and Denies flank pain Musculoskeletal: Denies arthralgias and Denies joint swelling Skin/Breast: Denies rash Denies paresthesias and Denies weakness PMFSH Past Medical History Medical History BMI 37.0-37.9, adult Encounter for IUD removal Cervical cancer screening Prediabetes IUD check up Encounter for IUD insertion Left breast lump Well woman exam Family planning Hx of transfusion of packed red blood cells Migraine Seizures Non-insulin dependent type 2 diabetes mellitus Sleep apnea treated with continuous positive airway pressure (CPAP) Hypothyroidism Elevated cholesterol Obesity (BMI 30-39.9) Supraumbilical hernia HTN (hypertension) Anemia History of hypothyroidism Diastasis recti Depression Asthma GERD (gastroesophageal reflux disease) Family History Family History Father No problems noted. Mother HTN (hypertension) Asthma Hyperthyroidism Diabetes Paternal Aunt Breast cancer Son Asthma Son Asthma ADHD Son Asthma Daughter Autism Surgical History Surgical History S/P laparoscopic sleeve gastrectomy History of esophagogastroduodenoscopy (EGD) Hx of section History of umbilical hernia repair (05/13/19) Social History Social History Household Members: Spouse Housing: Apartment Are you a primary animal care taker to a significant other at home: No Do you presently have visiting nurse or other home services: No Alcohol intake: former Comment: Patient gait and balance are steady. Patient Tobacco Use Status: Never used Tobacco service: No Sexual orientation: Straight/Heterosexual Gender identity: Female Meds Allergies Allergy/AdvReac Type Severity Reaction Status Date / Time latex (LATEX) Allergy Intermediate HANDS SWELL Verified 02/23/25 17:05 Active Medications: Current Medications Acetaminophen (Acetaminophen 325 Mg Tablet) 650 mg PO Q6H PRN PRN Reason: Pain, Mild 1-3,fever,headache Calcium Carbonate (Calcium Carbonate 750 Mg Tab.Chew) 750 mg PO Q4H PRN PRN Reason: Heartburn Dextrose (Dextrose 50 % 25 Gm/50 Ml Syringe) 25 gm IVPUSH Q15M PRN; Protocol PRN Reason: per Hypoglycemia Standing Ord. Docusate Sodium (Docusate Sodium 100 Mg Capsule) 100 mg PO BID [facility] Last Admin: 02/26/25 10:37 Dose: Not Given Enoxaparin Sodium (Enoxaparin Sodium 40 Mg/0.4 Ml Syringe) 40 mg SUBCUT Q24H [facility] Last Admin: 02/25/25 19:52 Dose: 40 mg Glucose (Glucose Gel 15 Gm Gel..Gram.) 15 gm PO Q15M PRN; Protocol PRN Reason: per Hypoglycemia Standing Ord. Lactated Ringer's (Lr) 1,000 mls @ 80 mls/hr IVCONT .[id number] [facility] Last Admin: 02/26/25 10:39 Dose: 80 mls/hr Potassium Chloride (Potassium Chloride/H20) 10 meq in 100 mls @ 100 mls/hr IV Q1H [facility] Stop: 02/26/25 11:59 Last Admin: 02/26/25 10:37 Dose: 100 mls/hr Insulin Human Lispro (Insulin Lispro 100 Unit/Ml 3 Ml Vial) 0 unit SUBCUT QIDACHS [facility]; Protocol Last Admin: 02/26/25 07:27 Dose: Not Given Levothyroxine Sodium 112 mcg/ (Levothyroxine Sodium 25 mcg) 137 mcg PO DAILY@0600 [facility] Last Admin: 02/26/25 05:32 Dose: 137 mcg Magnesium Hydroxide (Milk Of Magnesia 30 Ml Oral.Susp) 30 ml PO DAILY PRN PRN Reason: Constipation Melatonin (Melatonin 3 Mg Tablet) 6 mg PO BEDTIME PRN PRN Reason: Insomnia Ondansetron HCl (Ondansetron Hcl 4 Mg/2 Ml Vial) 4 mg IVPUSH Q8H PRN PRN Reason: Nausea and Vomiting Last Admin: 02/25/25 08:56 Dose: 4 mg Pantoprazole Sodium (Pantoprazole Sodium 40 Mg/10 Ml Vial) 40 mg IVPUSH BID@0630,1630 [facility] Last Admin: 02/26/25 05:32 Dose: 40 mg Sodium Chloride (0.9 % Sodium Chloride Flush 3 Ml Syringe) 3 ml IVFLUSH QSHIFT [facility] Last Admin: 02/26/25 10:37 Dose: Not Given Sucralfate (Sucralfate Oral Suspension 1 Gm/10 Ml Oral.Susp) 1 gm PO BID [facility] Last Admin: 02/26/25 10:37 Dose: 1 gm Home Medications ?Medication ?Instructions ?Recorded ?Confirmed ?Last Taken ?Type levothyroxine 137 mcg tablet 137 mcg PO DAILY@0600 02/09/23 02/24/25 02/21/25 History Physical Exam Vital Signs: Last Vital Signs Temp 97.9 F 02/26/25 11:24 Pulse 79 02/26/25 11:24 Resp 16 02/26/25 11:24 BP 110/70 02/26/25 11:24 Pulse Ox 99 02/26/25 11:24 O2 Del Method Room Air 02/26/25 11:24 BMI result Body Mass Index 29.1 Const General: no acute distress, alert and awake Resp Effort & Inspection: normal respiratory effort and able to speak in complete sentences Auscultation: clear to auscultation bilaterally Cardio Rate: regular rate Rhythm: regular rhythm Heart sounds: S1 normal heart sound present and S2 normal heart sound present GI Palpation (GI): Soft to palpation and nontender General: Yes no CVA tenderness Back/Spine/Pelvis Back: no CVA tenderness Skin Rashes: no rashes Extrem General: No edema Results Lab Results 02/26/25 07:12 02/26/25 13:07 Lab results: Chemistry 02/23/25 02/24/2525 17:26 04:00 09:15 Sodium 142 139 139 Potassium 2.6 L* D 2.7 L* 2.9 L* Carbon Dioxide 20 L 18 L 19 L BUN 10 9 9 Creatinine 0.64 0.51 0.56 Calcium 9.4 D 8.3 L D 8.5 02/24/25 02/24/25 02/25/25 16:24 20:54 06:02 Sodium 138 137 139 Potassium 3.1 L 3.3 2.8 L* Carbon Dioxide 20 L 18 L 20 L BUN 8 L 6 L 3 L Creatinine 0.49 L 0.48 L 0.44 L Calcium 8.4 7.6 L D 8.2 L D 02/25/25 02/26/25 16:00 07:12 Sodium 138 138 Potassium 3.1 L 2.6 L* Carbon Dioxide 22 23 BUN < 3 L < 3 L Creatinine 0.47 L 0.46 L Calcium 8.0 L 8.5 D Hematology 02/23/25 02/24/25 02/25/25 17:26 04:00 06:02 WBC 5.4 4.6 L 5.2 Hgb 13.3 11.5 L 12.4 Plt Count 182 D 142 L 130 L 02/26/25 07:12 WBC 4.0 L Hgb 11.2 L Plt Count 119 L Urinalysis 02/23/25 17:42 Urine Color Dark Yellow Urine Appearance Turbid Urine pH 6.5 Ur Specific [place] >= 1.030 H Urine Protein 100 (2+) H Urine Glucose (UA) Negative Urine Ketones >=160 Urine Blood Negative Urine Nitrite Negative Ur Leukocyte Esterase Trace H Urine RBC 3-5 H Urine WBC 6-10 H Ur Squamous Epith Cells >20 Hyaline Casts 3-5 Assessment and Plan (1) Hypokalemia: Status: Acute Plan Hypokalemia of unknown etiology seems to have no clear source of GI loss will check urine studies replace potassium, magnesium as needed. Continue supportive care. will continue to follow, further recommendations pending evolving data Discussed with Dr Ron Vieyra Date of Service Date of Service: 02/26/25
[2025-02-26 13:52] LABS: Anion Gap 10 (12-20); Blood Urea Nitrogen < 3 mg/dL (9-16); Calcium 8.1 mg/dL (8.4-10.2); Carbon Dioxide 26 mmol/L (22-29); Chloride 105 mmol/L (96-108); Creatinine Clr Calc Pharmacy 137.5; Estimated Glomerular Filt Rate > 60; Glucose Random 102 mg/dL (60-115); Sodium 138 mmol/L (135-145)
[2025-02-26 13:53] LABS: Potassium 2.7 mmol/L (3.3-5.1)
--- NOTE | 2025-02-26 15:12 | MHC.CM.PN ---
EMR reviewed and per MD rounds, pt is not medically cleared for discharge at this time.
[2025-02-26 15:19] LABS: Glucose, Whole Blood 83 mg/dL (60-115)
[2025-02-26 15:21] VITALS: BP 118/71; PULSE 82; RESP 16; TEMP 36.4; O2SAT 99
--- NOTE | 2025-02-26 15:25 | HO.PM.IMPN ---
Subjective Subjective Date of Service: 02/26/25 Interval History: Follow-up gastritis, hypokalemia No further vomiting since yesterday morning, nausea improved Still without abdominal pain Tolerating full liquid diet, would like to progress to regular diet Review of Systems Review of Systems: Yes all other systems are reviewed and are negative Physical Exam Vital Signs: Vital Signs: Last Vital Signs Temp 97.5 F 02/26/25 15:21 Pulse 82 02/26/25 15:21 Resp 16 02/26/25 15:21 BP 118/71 02/26/25 15:21 Pulse Ox 99 02/26/25 15:21 O2 Del Method Room Air 02/26/25 15:21 BMI result Body Mass Index 29.1 General: AOx3, no acute distress. Seen with hot blaster Resp: CTA bilaterally CVS: S1, S2, RRR GI: +BS, NT, no distention Skin: Warm, dry Neuro: Cranial nerves II-XII grossly intact bilaterally. Motor grossly intact bilaterally Extremities: No lower extremity edema Psych: Appropriate affect Objective Data Active Medications Acetaminophen (Acetaminophen 325 Mg Tablet) 650 mg PO Q6H PRN PRN Reason: Pain, Mild 1-3,fever,headache Calcium Carbonate (Calcium Carbonate 750 Mg Tab.Chew) 750 mg PO Q4H PRN PRN Reason: Heartburn Dextrose (Dextrose 50 % 25 Gm/50 Ml Syringe) 25 gm IVPUSH Q15M PRN; Protocol PRN Reason: per Hypoglycemia Standing Ord. Docusate Sodium (Docusate Sodium 100 Mg Capsule) 100 mg PO BID [facility] Last Admin: 02/26/25 10:37 Dose: Not Given Documented By: SERA Non-Admin Reason: Patient Refused Enoxaparin Sodium (Enoxaparin Sodium 40 Mg/0.4 Ml Syringe) 40 mg SUBCUT Q24H [facility] Last Admin: 02/25/25 19:52 Dose: 40 mg Documented By: ANUPAMA Glucose (Glucose Gel 15 Gm Gel..Gram.) 15 gm PO Q15M PRN; Protocol PRN Reason: per Hypoglycemia Standing Ord. Lactated Ringer's (Lr) 1,000 mls @ 80 mls/hr IVCONT .[id number] [facility] Last Admin: 02/26/25 10:39 Dose: 80 mls/hr Documented By: SERA Potassium Chloride (Potassium Chloride/H20) 10 meq in 100 mls @ 100 mls/hr IV Q1H [facility] Stop: 02/26/25 17:59 Insulin Human Lispro (Insulin Lispro 100 Unit/Ml 3 Ml Vial) 0 unit SUBCUT QIDACHS [facility]; Protocol Last Admin: 02/26/25 12:00 Dose: Not Given Documented By: SERA Non-Admin Reason: No Insulin Coverage Levothyroxine Sodium 112 mcg/ (Levothyroxine Sodium 25 mcg) 137 mcg PO DAILY@0600 [facility] Last Admin: 02/26/25 05:32 Dose: 137 mcg Documented By: ANUPAMA Magnesium Hydroxide (Milk Of Magnesia 30 Ml Oral.Susp) 30 ml PO DAILY PRN PRN Reason: Constipation Melatonin (Melatonin 3 Mg Tablet) 6 mg PO BEDTIME PRN PRN Reason: Insomnia Ondansetron HCl (Ondansetron Hcl 4 Mg/2 Ml Vial) 4 mg IVPUSH Q8H PRN PRN Reason: Nausea and Vomiting Last Admin: 02/25/25 08:56 Dose: 4 mg Documented By: [facility] Pantoprazole Sodium (Pantoprazole Sodium 40 Mg/10 Ml Vial) 40 mg IVPUSH BID@0630,1630 [facility] Last Admin: 02/26/25 05:32 Dose: 40 mg Documented By: ANUPAMA Sodium Chloride (0.9 % Sodium Chloride Flush 3 Ml Syringe) 3 ml IVFLUSH QSHIFT [facility] Last Admin: 02/26/25 10:37 Dose: Not Given Documented By: SERA Non-Admin Reason: IV Running Sucralfate (Sucralfate Oral Suspension 1 Gm/10 Ml Oral.Susp) 1 gm PO BID [facility] Last Admin: 02/26/25 10:37 Dose: 1 gm Documented By: SERA Labs 02/26/25 07:12 02/26/25 13:07 Labs: Laboratory Results - last 24 hr 02/25/25 02/25/25 02/25/25 16:00 16:06 20:44 MCV MCH MCHC RDW Plt Count MPV Immature Gran % (Auto) Neut % (Auto) Lymph % (Auto) [place] % (Auto) Eos % (Auto) Baso % (Auto) Lymph # (Auto) [place] # (Auto) Eos # (Auto) Baso # (Auto) Abs Immat Gran (auto) Absolute Neuts (auto) Absolute Nucleated RBC Nucleated RBC % (auto) Anion Gap 11 L Estim Creat Clear Calc 134.6 Estimated GFR > 60 POC Glucose 105 97 Random Glucose 102 Calcium 8.0 L Magnesium 1.4 L* 02/26/25 02/26/25 02/26/25 07:12 07:18 11:19 MCV 81.8 MCH 27.2 MCHC 33.2 RDW 18.1 H Plt Count 119 L MPV 12.3 Immature Gran % (Auto) 0.0 Neut % (Auto) 50.9 Lymph % (Auto) 34.8 [place] % (Auto) 10.8 Eos % (Auto) 3.0 Baso % (Auto) 0.5 Lymph # (Auto) 1.4 [place] # (Auto) 0.4 Eos # (Auto) 0.1 Baso # (Auto) 0.0 Abs Immat Gran (auto) 0.00 Absolute Neuts (auto) 2.0 Absolute Nucleated RBC 0.000 Nucleated RBC % (auto) 0.0 Anion Gap 12 Estim Creat Clear Calc 137.5 Estimated GFR > 60 POC Glucose 88 98 Random Glucose 90 Calcium 8.5 D Magnesium 1.9 02/26/25 02/26/25 13:07 15:14 MCV MCH MCHC RDW Plt Count MPV Immature Gran % (Auto) Neut % (Auto) Lymph % (Auto) [place] % (Auto) Eos % (Auto) Baso % (Auto) Lymph # (Auto) [place] # (Auto) Eos # (Auto) Baso # (Auto) Abs Immat Gran (auto) Absolute Neuts (auto) Absolute Nucleated RBC Nucleated RBC % (auto) Anion Gap 10 L Estim Creat Clear Calc 137.5 Estimated GFR > 60 POC Glucose 83 Random Glucose 102 Calcium 8.1 L Magnesium Assessment and Plan (1) Acute hypokalemia: Status: Acute (2) Gastritis: Status: Acute (3) Nausea & vomiting: Status: Acute Plan Follow-up gastritis, nausea, vomiting, hypokalemia, hypomagnesemia Nausea/vomiting: Recent gastric sleeve surgery - unrelated per bariatric CT and pelvis showed no acute findings Sucralfate, pantoprazole, zofran Advance to regular diet Hypokalemia: Continues to have low potassium despite repletion Discontinue IVF Continue IV potassium repletion, patient unable to tolerate p.o. due to nausea Monitor on telemetry Nephrology consult Hypomagnesemia Mg improved, no need for further repletion at this time Diabetes: Insulin sliding scale DVT prophylaxis: Lovenox Code status: Full code Quality Stroke Does the patient have a stroke diagnosis?: No VTE Prior VTE?: No VTE Risk Level:: Medical - moderate - high VTE Device Contraindication: Treatment Not Indicated VTE Drug Contraindication: N/A - Med Ordered
[2025-02-26 16:09] LABS: Potassium Urine Random 38.1 mmol/L
[2025-02-26 16:14] LABS: Osmolality Urine 735 mosm/kg (373-1093)
[2025-02-26] MEDS: Potassium Chloride/H20 10 MEQ/100 ML PIGGYBACK 50 MEQ IV (17:04)
[2025-02-26 19:33] VITALS: BP 119/77; PULSE 71; RESP 16; TEMP 36.6; O2SAT 98
[2025-02-26 20:18] LABS: Glucose, Whole Blood 97 mg/dL (60-115)
[2025-02-26] MEDS: Enoxaparin Sodium 40 MG/0.4 ML SYRINGE SUBCUT (20:57)
[2025-02-26] MEDS: ondansetron HCL 4 MG/2 ML VIAL IVPUSH (21:01)
[2025-02-26 21:08] LABS: Anion Gap 13 (12-20); Blood Urea Nitrogen < 3 mg/dL (9-16); Calcium 8.1 mg/dL (8.4-10.2); Carbon Dioxide 23 mmol/L (22-29); Chloride 104 mmol/L (96-108); Creatinine Clr Calc Pharmacy 134.6; Estimated Glomerular Filt Rate > 60; Glucose Random 103 mg/dL (60-115); Potassium 3.2 mmol/L (3.3-5.1); Sodium 137 mmol/L (135-145)
[2025-02-27 03:32] VITALS: BP 107/68; PULSE 74; RESP 18; TEMP 36.3; O2SAT 98
[2025-02-27] MEDS: Pantoprazole Sodium 40 MG/10 ML VIAL IVPUSH (05:50)
[2025-02-27] MEDS: Levothyroxine Sodium 112 MCG, Levothyroxine Sodium 25 MCG 137 MCG PO (05:50)
[2025-02-27] MEDS: Potassium Chloride Packet 20 MEQ PACKET 40 MEQ PO (05:50)
[2025-02-27 06:44] LABS: MANUAL DIFF FLAG NO
[2025-02-27 06:55] LABS: Basophils Percent Auto 0.7 % (0-2); Eosinophils Absolute Auto 0.1 X10*3/uL (0.0-0.4); Eosinophils Percent Auto 3.6 % (0-4); Hematocrit 31.9 % (37.0-47.0); Lymphocytes Absolute Auto 1.5 X10*3/uL (1.2-4.9); Lymphocytes Percent Auto 48.9 % (20-40); Mean Corpuscular HGB Conc 34.5 g/dl (31.0-35.0); Mean Corpuscular Hemoglobin 27.6 pg (27.0-33.0); Mean Corpuscular Volume 80.2 fL (80.0-98.0); Monocytes Absolute Auto 0.3 X10*3/uL (0.1-1.2); Monocytes Percent Auto 9.2 % (2-11); Neutrophils Absolute Auto 1.2 x10*3/uL (2.0-8.3); Neutrophils Percent Auto 37.6 % (45-73); Platelet Count 113 X10*3/uL (160-400); Red Blood Count 3.98 X10*6/uL (4.20-5.50); Red Cell Distribution Width 18.1 % (11.0-16.0); White Blood Count 3.1 X10*3/uL (4.8-10.8)
[2025-02-27 06:58] VITALS: BP 109/72; PULSE 70; RESP 18; TEMP 36.6; O2SAT 98
[2025-02-27 07:06] LABS: Anion Gap 13 (12-20); Blood Urea Nitrogen < 3 mg/dL (9-16); Calcium 8.2 mg/dL (8.4-10.2); Carbon Dioxide 24 mmol/L (22-29); Chloride 104 mmol/L (96-108); Creatinine Clr Calc Pharmacy 134.6; Estimated Glomerular Filt Rate > 60; Glucose Random 88 mg/dL (60-115); Magnesium 1.7 mg/dL (1.6-2.6); Potassium 3.3 mmol/L (3.3-5.1); Sodium 138 mmol/L (135-145)
[2025-02-27 07:17] LABS: Glucose, Whole Blood 91 mg/dL (60-115)
[2025-02-27] MEDS: Sucralfate Oral Suspension 1 GM/10 ML ORAL.SUSP PO (08:49)
[2025-02-27] MEDS: Docusate Sodium 100 MG CAPSULE PO (08:49)
[2025-02-27] MEDS: 0.9 % Sodium Chloride Flush 3 ML SYRINGE IVFLUSH (08:50)
[2025-02-27] MEDS: ondansetron HCL 4 MG/2 ML VIAL IVPUSH (08:55)
--- NOTE | 2025-02-27 10:25 | PC.RT ---
ABG att on pt x 2. insufficient sample. Pt c/o extremely painful for her. Spo2 99% on room ait and pt is awake and alert, mentating. [employer] made aware via tiger, no further abg att.
[2025-02-27 11:11] LABS: Venous Blood Gas Refer to POC result
[2025-02-27 11:12] LABS: VBG Base Excess 3.3 mmol/L; VBG HCO3 27 mmol/L (22-26); VBG pCO2 41 mmHg; VBG pH 7.43 (7.32-7.43); VBG pO2 41 mmHg
[2025-02-27 11:21] VITALS: BP 125/80; PULSE 82; RESP 18; TEMP 36.2; O2SAT 98
--- NOTE | 2025-02-27 11:33 | P.PNNP_ITS ---
Subjective Subjective Date of Service: 02/27/25 Interval history: following for hypokalemia renal function remains normal continues to need potassium replacement K this a.m. 3.3 post 40meq oral replacement pt states she is feeling ok and would like to go home. states less spitting up, continues to state no vomiting or diarrhea just saliva that comes up Physical Exam 2 Vital Signs: Vital Signs: Last Vital Signs Temp 97.1 F 02/27/25 11:21 Pulse 82 02/27/25 11:21 Resp 18 02/27/25 11:21 BP 125/80 02/27/25 11:21 Pulse Ox 98 02/27/25 11:21 O2 Del Method Room Air 02/27/25 11:21 BMI result Body Mass Index 29.1 Const: General: no acute distress, alert and awake Resp: Effort & Inspection: normal respiratory effort and able to speak in complete sentences Auscultation: clear to auscultation bilaterally Cardio: Rate: regular rate Rhythm: regular rhythm Heart sounds: S1 normal heart sound present and S2 normal heart sound present GI: Palpation (GI): Soft to palpation and nontender : General: Yes no CVA tenderness Back/Spine/Pelvis: Back: no CVA tenderness Skin: Rashes: no rashes Extrem: General: No edema Objective Data Labs 02/27/25 06:36 02/27/25 06:36 Labs: Laboratory Results - last 24 hr 02/26/25 02/26/25 02/26/25 13:07 15:14 15:49 WBC RBC Hgb Hct MCV MCH MCHC RDW Plt Count MPV Immature Gran % (Auto) Neut % (Auto) Lymph % (Auto) [place] % (Auto) Eos % (Auto) Baso % (Auto) Lymph # (Auto) [place] # (Auto) Eos # (Auto) Baso # (Auto) Abs Immat Gran (auto) Absolute Neuts (auto) Absolute Nucleated RBC Nucleated RBC % (auto) VBG pH VBG pCO2 VBG pO2 VBG HCO3 VBG O2 Saturation VBG Base Excess Sodium 138 Potassium 2.7 L* Chloride 105 Carbon Dioxide 26 Anion Gap 10 L BUN < 3 L Creatinine 0.46 L Estim Creat Clear Calc 137.5 Estimated GFR > 60 POC Glucose 83 Random Glucose 102 Calcium 8.1 L Magnesium Urine Osmolality 735 Ur Random Sodium 202.0 Ur Random Potassium 38.1 Ur Random Chloride 262.0 02/26/25 02/26/25 02/27/25 20:11 20:49 06:36 WBC 3.1 L RBC 3.98 L Hgb 11.0 L Hct 31.9 L MCV 80.2 MCH 27.6 MCHC 34.5 RDW 18.1 H Plt Count 113 L MPV 13.0 H Immature Gran % (Auto) 0.0 Neut % (Auto) 37.6 L Lymph % (Auto) 48.9 H [place] % (Auto) 9.2 Eos % (Auto) 3.6 Baso % (Auto) 0.7 Lymph # (Auto) 1.5 [place] # (Auto) 0.3 Eos # (Auto) 0.1 Baso # (Auto) 0.0 Abs Immat Gran (auto) 0.00 Absolute Neuts (auto) 1.2 L Absolute Nucleated RBC 0.000 Nucleated RBC % (auto) 0.0 VBG pH VBG pCO2 VBG pO2 VBG HCO3 VBG O2 Saturation VBG Base Excess Sodium 137 138 Potassium 3.2 L 3.3 Chloride 104 104 Carbon Dioxide 23 24 Anion Gap 13 13 BUN < 3 L < 3 L Creatinine 0.47 L 0.47 L Estim Creat Clear Calc 134.6 134.6 Estimated GFR > 60 > 60 POC Glucose 97 Random Glucose 103 88 Calcium 8.1 L 8.2 L Magnesium 1.7 Urine Osmolality Ur Random Sodium Ur Random Potassium Ur Random Chloride 02/27/25 02/27/25 07:03 11:09 WBC RBC Hgb Hct MCV MCH MCHC RDW Plt Count MPV Immature Gran % (Auto) Neut % (Auto) Lymph % (Auto) [place] % (Auto) Eos % (Auto) Baso % (Auto) Lymph # (Auto) [place] # (Auto) Eos # (Auto) Baso # (Auto) Abs Immat Gran (auto) Absolute Neuts (auto) Absolute Nucleated RBC Nucleated RBC % (auto) VBG pH 7.43 VBG pCO2 41 VBG pO2 41 VBG HCO3 27 H VBG O2 Saturation 64.0 VBG Base Excess 3.3 Sodium Potassium Chloride Carbon Dioxide Anion Gap BUN Creatinine Estim Creat Clear Calc Estimated GFR POC Glucose 91 Random Glucose Calcium Magnesium Urine Osmolality Ur Random Sodium Ur Random Potassium Ur Random Chloride Microbiology Microbiology Results: Microbiology 02/23/25 17:42 Urine clean catch - Clean Catch Midstream Urine Culture - Final Lactobacillus species Procedures Date of Service Date of Service: 02/27/25 Assessment & Plan Assessment and plan (1) Hypokalemia: Status: Acute Plan Hypokalemia of unknown etiology seems to have no clear source of GI loss, though may have some acid coming up as she does report saliva coming up with vomiting, states no actual vomit hypokalemia is improving, 3.3 after replacement with 40meq this a.m. VBG pH shows alkalosis- pt declined ABG after two unsuccessful attempts at collection, so unable to evaluate definitively if alkalosis is metabolic or respiratory. may resolve as patient's gastritis heals and vomiting/spitting up subsides. she should continue with daily oral potassium replacement for 1 week, then should have repeat potassium checked in 1 week. Will follow up with patient in office as outpatient. Discussed with Dr Morrow. Time Spent With Patient Time: Total time managing care of this patient today ____ minutes. Progress Note: Quality Stroke Does the patient have a stroke diagnosis?: No
[2025-02-27 11:44] LABS: Glucose, Whole Blood 87 mg/dL (60-115)
[2025-02-27] MEDS: Lactated Ringers 1,000 ML 80 ML IVCONT (11:54)
--- NOTE | 2025-02-27 13:51 | PM.DS ---
DS: Providers Provider Date of Service: 02/27/25 Date of admission: 02/23/25 20:42 Date of discharge: 02/27/25 Primary care physician: Sarah Galdamez MD Consults: 02/24/25 16:15 Consult to Bariatric Surgery Routine Consulting Provider: Parmjit Caraballo Reason for consultation: ?gastritis, recent gastic sleeve Has provider been notified: Yes 02/26/25 08:42 Consult to Nephrology Routine Consulting Provider: [facility] Reason for consultation: persistent hypokalemia Has provider been notified: No DS: Diagnosis Discharge Diagnosis (1) Hypokalemia: Status: Acute DS: Summary Hospital Course Hospital Course: H&P on admission: 39-year-old female with a past medical history of recent gastric sleeve surgery about 1 month ago; pelvic floor weakness, KELL, hepatic steatosis, anemia, asthma, diabetes, hypothyroidism, hypertension presented to the hospital with a chief complaint of nausea/vomiting. Patient mentioned that over the past 3 days she has been having nausea and vomiting unable to keep anything down. Denies any abdominal discomfort. Denies any fevers. Denies any diarrhea. Denies any chest pain or palpitations. Denies any concerns for food poisoning. Review of all other systems is negative except mentioned above ER course: Per ER team, patient's exam was benign; benign abdominal examination; patient was given Zofran. CT abdomen pelvis showed no acute findings. Notified on-call. Trach surgery. On labs noted to have potassium of 2.6. Repleted. Patient was given p.o. challenge-failed. Hospital course: Patient was admitted for acute hypokalemia secondary to nausea and vomiting. She has had persistent low potassium despite IV repletion and minimal vomiting throughout her stay. Vomiting has ceased and potassium has finally normalized. Her case was discussed with bariatric surgery who did not find this to be related to her recent gastric sleeve. She was able to progress back to a regular diet. Her ABG showed alkalosis, unclear whether metabolic or respiratory however likely metabolic. Nephrology suggested this to be unlikely related to renal disease. Recommendations for oral potassium replacement 40 mEq daily with repeat labs with her primary care in 1 week. Nephrology follow-up appointment was also made. Status at Discharge Functional status at discharge: independent ambulation Overall status at discharge: patient is back to baseline Time Attestation Discharge Coordination Time (in mins): 45 Quality: Safe Use of Opioids Does Pt have an Active Cancer Diagnosis on the Problem List?: No Quality: Stroke Does the patient have a stroke diagnosis?: No Physical Exam Vital Signs: Vital Signs: Last Vital Signs Temp 97.1 F 02/27/25 11:21 Pulse 82 02/27/25 11:21 Resp 18 02/27/25 11:21 BP 125/80 02/27/25 11:21 Pulse Ox 98 02/27/25 11:21 O2 Del Method Room Air 02/27/25 11:21 BMI result Body Mass Index 29.1 General: AOx3, no acute distress, seen with paleology professor Resp: CTA bilaterally CVS: S1, S2, RRR GI: +BS, NT, no distention Skin: Warm, dry Neuro: Cranial nerves II-XII grossly intact bilaterally. Motor grossly intact bilaterally Extremities: No LE edema Psych: Appropriate affect DS: Data Data Completed and Pending Completed studies during hospitalization [Text1]: Procedures Excision of Stomach, Percutaneous Endoscopic Approach, Vertical (01/14/25) Labs on day of discharge: Laboratory Results - last 24 hr 02/26/25 02/26/25 02/26/25 13:07 15:14 15:49 WBC RBC Hgb Hct MCV MCH MCHC RDW Plt Count MPV Immature Gran % (Auto) Neut % (Auto) Lymph % (Auto) [place] % (Auto) Eos % (Auto) Baso % (Auto) Lymph # (Auto) [place] # (Auto) Eos # (Auto) Baso # (Auto) Abs Immat Gran (auto) Absolute Neuts (auto) Absolute Nucleated RBC Nucleated RBC % (auto) VBG pH VBG pCO2 VBG pO2 VBG HCO3 VBG O2 Saturation VBG Base Excess Sodium 138 Potassium 2.7 L* Chloride 105 Carbon Dioxide 26 Anion Gap 10 L BUN < 3 L Creatinine 0.46 L Estim Creat Clear Calc 137.5 Estimated GFR > 60 POC Glucose 83 Random Glucose 102 Calcium 8.1 L Magnesium Urine Osmolality 735 Ur Random Sodium 202.0 Ur Random Potassium 38.1 Ur Random Chloride 262.0 02/26/25 02/26/25 02/27/25 20:11 20:49 06:36 WBC 3.1 L RBC 3.98 L Hgb 11.0 L Hct 31.9 L MCV 80.2 MCH 27.6 MCHC 34.5 RDW 18.1 H Plt Count 113 L MPV 13.0 H Immature Gran % (Auto) 0.0 Neut % (Auto) 37.6 L Lymph % (Auto) 48.9 H [place] % (Auto) 9.2 Eos % (Auto) 3.6 Baso % (Auto) 0.7 Lymph # (Auto) 1.5 [place] # (Auto) 0.3 Eos # (Auto) 0.1 Baso # (Auto) 0.0 Abs Immat Gran (auto) 0.00 Absolute Neuts (auto) 1.2 L Absolute Nucleated RBC 0.000 Nucleated RBC % (auto) 0.0 VBG pH VBG pCO2 VBG pO2 VBG HCO3 VBG O2 Saturation VBG Base Excess Sodium 137 138 Potassium 3.2 L 3.3 Chloride 104 104 Carbon Dioxide 23 24 Anion Gap 13 13 BUN < 3 L < 3 L Creatinine 0.47 L 0.47 L Estim Creat Clear Calc 134.6 134.6 Estimated GFR > 60 > 60 POC Glucose 97 Random Glucose 103 88 Calcium 8.1 L 8.2 L Magnesium 1.7 Urine Osmolality Ur Random Sodium Ur Random Potassium Ur Random Chloride 02/27/25 02/27/25 02/27/25 07:03 11:09 11:23 WBC RBC Hgb Hct MCV MCH MCHC RDW Plt Count MPV Immature Gran % (Auto) Neut % (Auto) Lymph % (Auto) [place] % (Auto) Eos % (Auto) Baso % (Auto) Lymph # (Auto) [place] # (Auto) Eos # (Auto) Baso # (Auto) Abs Immat Gran (auto) Absolute Neuts (auto) Absolute Nucleated RBC Nucleated RBC % (auto) VBG pH 7.43 VBG pCO2 41 VBG pO2 41 VBG HCO3 27 H VBG O2 Saturation 64.0 VBG Base Excess 3.3 Sodium Potassium Chloride Carbon Dioxide Anion Gap BUN Creatinine Estim Creat Clear Calc Estimated GFR POC Glucose 91 87 Random Glucose Calcium Magnesium Urine Osmolality Ur Random Sodium Ur Random Potassium Ur Random Chloride Discharge Plan Discharge Anticipated Discharge Date/Time: 02/27/25 13:56 Patient Disposition: Home, Self-Care Discharge Diagnosis: hypokalemia Referrals: Sarah Bradley MD [Primary Care Provider, Internal Medicine] - 1 Week Discharge Medications: New potassium chloride [K-Tab] 20 mEq tablet extended release 20 meq PO BID Qty: 14 0RF ondansetron 4 mg tablet,disintegrating 4 mg PO Q8H PRN (Reason: nausea and vomiting) Qty: 21 0RF Continued levothyroxine 137 mcg tablet 137 mcg PO DAILY@0600 pantoprazole 40 mg tablet,delayed release (DR/EC) 40 mg PO DAILY Qty: 90 0RF sucralfate 100 mg/mL suspension 10 ml PO BID Qty: 600 2RF docusate sodium [Colace] 100 mg capsule 100 mg PO BID Qty: 60 0RF Discharge Orders: Discharge Order (Routine); Ordered 02/27/25 Ordered By: Omaira Dozier Diet: Regular diet Activity on Discharge: As tolerated Stand Alone Forms: Patient Portal Discharge page Print Language: Irish Care Plan Goals: Recover from nausea, vomiting and low potassium Health Concerns: Hypokalemia Persistent nausea vomiting Plan of Treatment: Take potassium 20 mEq twice daily for 1 week Take Zofran 4 mg every 8 hours as needed for nausea and vomiting Follow-up with PCP within 1 week for repeat labs Follow-up with nephrology as scheduled Assessment: see above
--- NOTE | 2025-02-27 14:57 | MHC.CM.PN ---
Pt has been medically cleared for DC, she will go home via private transport, plan is self care.
== END 2025-02-27 15:26 | disposition home or self-care (01) | DRG 241 ==
LOC: HO.ED 20:42 → HO.EDOVER 20:48 → HO.IMC 02-24 19:23
PROVIDERS: Nurse Practitioner Family; Physician Assistant; Physician Assistant Medical; Admitting Provider Hospitalist; Emergency Provider Emergency Medicine Emergency Medical Services; PCP Internal Medicine; Visit Provider Physician Assistant
DX: K29.00 Acute gastritis without bleeding (principal); E87.3 Alkalosis; E03.9 Hypothyroidism, unspecified; E11.9 Type 2 diabetes mellitus without complications; E83.42 Hypomagnesemia; E87.6 Hypokalemia; Z98.84 Bariatric surgery status; Z79.890 Hormone replacement therapy; Z79.899 Other long term (current) drug therapy
CPT/HCPCS: 36415; 74177; 80048; 80053; 81001; 82088; 82436; 82607; 82746; 82803; 82947; 83540; 83690; 83735; 83935; 84133; 84300; 84702; 85025; 87086; 93005; 99285; J1650; J2405; J2470; J3475; J3480; J7120; Q9967

== ENCOUNTER → 2025-02-23 18:01 | Outpatient (BNV) | payer MEDICAID, SELFPAY | PROVIDERS: Admitting Provider Hospitalist; Emergency Provider Emergency Medicine Emergency Medical Services; PCP Internal Medicine; Visit Provider Radiology Diagnostic Radiology | DX: K76.0 Fatty (change of) liver, not elsewhere classified (principal) | CPT/HCPCS: 74177 ==

== ENCOUNTER → 2025-02-23 20:42 | Outpatient (BNV) | payer MEDICAID, SELFPAY | PROVIDERS: Admitting Provider Hospitalist; Emergency Provider Emergency Medicine Emergency Medical Services; PCP Internal Medicine; Visit Provider Physician Assistant Surgical | DX: E87.6 Hypokalemia (principal); Z98.84 Bariatric surgery status | CPT/HCPCS: 99222 ==

== ENCOUNTER → 2025-02-23 20:42 | Outpatient (BNV) | payer MEDICAID, SELFPAY | PROVIDERS: Admitting Provider Hospitalist; Emergency Provider Emergency Medicine Emergency Medical Services; PCP Internal Medicine; Visit Provider Hospitalist | DX: K29.70 Gastritis, unspecified, without bleeding (principal) | CPT/HCPCS: 99223; 99232; 99239 ==

== ENCOUNTER → 2025-02-23 20:42 | Outpatient (BNV) | payer MEDICAID, SELFPAY | PROVIDERS: Admitting Provider Hospitalist; Emergency Provider Emergency Medicine Emergency Medical Services; PCP Internal Medicine; Visit Provider Nurse Practitioner Family | DX: E87.6 Hypokalemia (principal) | CPT/HCPCS: 99221; 99231 ==

== ENCOUNTER → 2025-02-23 20:42 | Outpatient (BNV) | payer MEDICAID, SELFPAY | PROVIDERS: Admitting Provider Hospitalist; Emergency Provider Emergency Medicine Emergency Medical Services; PCP Internal Medicine; Visit Provider Internal Medicine | DX: R94.31 Abnormal electrocardiogram [ECG] [EKG] (principal); R11.2 Nausea with vomiting, unspecified | CPT/HCPCS: 93010 ==

== ENCOUNTER 2025-03-04 08:51 | Outpatient (AMB) | payer OTHER, SELFPAY ==
--- NOTE | 2025-03-04 09:10 | A.OFFWM_ITS ---
Intake Intake Visit Reasons: OV PO LSG 01/14/25 Allergies latex (LATEX) Allergy (Intermediate, Verified 02/23/25 17:05) HANDS SWELL FOR[facility]LY [facility] Medical History BMI 37.0-37.9, adult Encounter for IUD removal Cervical cancer screening Prediabetes IUD check up Encounter for IUD insertion Left breast lump Well woman exam Family planning Hx of transfusion of packed red blood cells Migraine Seizures Non-insulin dependent type 2 diabetes mellitus Sleep apnea treated with continuous positive airway pressure (CPAP) Hypothyroidism Elevated cholesterol Obesity (BMI 30-39.9) Supraumbilical hernia HTN (hypertension) Anemia History of hypothyroidism Diastasis recti Depression Asthma GERD (gastroesophageal reflux disease) Surgical History S/P laparoscopic sleeve gastrectomy History of esophagogastroduodenoscopy (EGD) Hx of section History of umbilical hernia repair (05/13/19) Family History Father No problems noted. Mother HTN (hypertension) Asthma Hyperthyroidism Diabetes Paternal Aunt Breast cancer Son Asthma Son Asthma ADHD Son Asthma Daughter Autism Social History Household Members: Spouse Housing: Apartment Are you a primary geriatric care manager to a significant other at home: No Do you presently have visiting nurse or other home services: No Alcohol intake: former Comment: Patient gait and balance are steady. Patient Tobacco Use Status: Never used Tobacco service: No Sexual orientation: Straight/Heterosexual Gender identity: Female Female Reproductive History Menstrual Age of Menarche: 13 Behavioral Health Assessment Weight Management Therapy Therapy Notes Details Subjective: Sarah presented for an in-person behavioral health follow-up accompanied by her . She reported ongoing physical discomfort, including daily nausea and poor fluid intake beginning approximately two weeks ago. Sarah was hospitalized from 02/23 to 02/27, during which time she was advanced to a regular diet. Since discharge, she has attempted to eat small amounts of eggs, broth, and protein yogurt drinks; however, she reports that within 20?30 minutes of eating solids, she becomes nauseous, experiences watery mouth, and vomits. She also reports that plain water induces nausea. She was unable to quantify her daily fluid intake and reports not having received a formal meal plan from Dr. Jenkins since discharge. Emotionally, Sarah shared that she has been feeling increasingly down, with frequent negative self-talk that impacts her motivation to maintain adequate hydration. She has a history of anxiety and depression and reported recent panic-like episodes, along with a worsening of depressive symptoms since her hospital stay. Objective: Discussed current functioning, recent challenges, and processed the emotional impact of the recent hospitalization. This provider assisted the patient in rescheduling her follow-up appointment with the PA from 03/24 to 03/13 to ensure more timely support from the medical team. Reviewed the patient?s current food intake and discussed the dietary changes that were introduced during her hospital stay. Reinforced the importance of following post-operative instructions from her surgical team to support physical healing and to ensure she is appropriately cleared to progress to solid foods. Explored ongoing symptoms of anxiety and low mood, including panic-like episodes and reduced motivation related to self-care. Provided psychoeducation on the emotional challenges that can emerge during post-surgical recovery and their impact on overall functioning. Introduced mindfulness and stress management techniques, and engaged the patient in cognitive reframing to address negative self-talk and promote emotional resilience. Encouraged ongoing communication with her medical providers regarding nutrition and hydration concerns and supported the development of daily structure to aid in overall recovery and adherence to her care plan. Assessment/Response: * Mental status: down, tired, worries . Oriented x3, alert, cooperative, open and engaged. * Risk reported/identified: None. Assessment & Plan Assessment & Plan (1) Adjustment disorder with mixed anxiety and depressed mood: Code(s): F43.23 - Adjustment disorder with mixed anxiety and depressed mood (2) S/P laparoscopic sleeve gastrectomy: Code(s): Z98.84 - Bariatric surgery status Plan This provider will update the interdisciplinary care team to ensure the physician can provide a timely treatment plan and the PA is informed ahead of the upcoming follow-up visit. Patient is scheduled to follow up with this provider in 2?3 weeks and has been added to the cancellation list for potential earlier availability next week. Next Appointment: 03/24/2025 at 10:00 AM (Telehealth) Coding Level of Care Code Established Pt Psytx >53 mins (46817) Patient Type Established Diagnoses Adjustment disorder with mixed anxiety and depressed mood F43.23 S/P laparoscopic sleeve gastrectomy Z98.84 Time Spent (min) 55
--- OUTSIDE RECORDS SUMMARY | 2025-03-04 09:11 | XMS_ITS | Clinical Summary ---
Author Organization [employer] [facility] ity Address [address] [place] [address] Care Team Providers Care Qc Chemist Name Role Phone Unavailable Primary Care Provider [...]
--- OUTSIDE RECORDS SUMMARY | 2025-03-04 09:11 | XMS_ITS | Encounter Summary ---
Author Organization [employer] Address [address] [place] [address] [address] [place] [address] Care Team Providers Care Gas Line Installer Supervisor Name Role Phone Sarah Bradley MD Primary Care Provide r Bruce Cruz RN Unavailable [phone] Veronica Preston Unavailable Encounter Details Date Type Department Care Team (Latest Contact Info) Description 12/15/2020 Abstract [facility] CONVERSIONS Dental, Provider, DDS Social History [...] on filedocumented in this encounter Care Teams Gas Line Installer Supervisor Relationship Specialty Start Date End Date Sarah Bradley MD [address] [place] [id number] PCP - General Family Medicine 06/22/18 Bruce Cruz, RN [address] [place] [id number] Registered Nurse Family Medicine 01/15/25 Veronica Preston 01/15/25 Aisha Savage Dairy Store ManagerYacht Rigger 04/11/24 documented as of this encounter
== END 2025-03-04 10:15 | disposition home or self-care (01) ==
PROVIDERS: PCP Internal Medicine; Visit Provider Counselor Mental Health
DX: F43.23 Adjustment disorder with mixed anxiety and depressed mood (principal); Z98.84 Bariatric surgery status
CPT/HCPCS: 90834

== ENCOUNTER 2025-03-06 10:03 | Outpatient (AMB) | payer MEDICAID, SELFPAY ==
--- NOTE | 2025-03-06 10:13 | HO.NEPHOV ---
Vital Signs 03/06/25 10:18 Height 4 ft 11 in Weight 140 lb BMI 28.3 BP 112/88 Blood Pressure Location Rt brachial Position Sitting Pulse 105 H Pulse Source Pulse Oximeter Pulse Oximetry (%) 98 Oxygen Delivery Method Room Air Intake Visit Reasons: [facility] [place] F/U Supervisor Refractory Products Required: Yes Supervisor Refractory Products Language: Hvac Maintenance Technician Services: Supervisor Refractory Products Present Supervisor Refractory Products Name: [id number] Information Interpreted: clinical only Accompanied by: Spouse Allergies latex (LATEX) Allergy (Intermediate, Verified 03/06/25 10:18) HANDS SWELL HPI Comments Details: 39 y/o female with a medical history of gastric sleeve surgery (reports on 01/14/25), pelvic floor weakness, KELL, hepatic steatosis, anemia, asthma, diabetes, hypothyroidism, HTN. Here for hospital follow up 02/23-02/27 with nausea, vomiting and hypokalemia. Potassium was repeatedly below 3.0 despite repletion. Patient reported she was bringing up spit and not vomit, hense referral to nephrology for hypokalemia management. States she is feeling well. She has been taking oral potassium supplementation as prescribed she denies pain, nausea, vomiting. denies chest pain, abdominal pain, shortness of breath, urinary symptoms, lower extremity edema. states she is here because of low potassium. States she has not had this problem in the past potassium 3.3 on 02/27, day of discharge. she has not yet gotten blood work done- she will go now. [facility] Medical History BMI 37.0-37.9, adult Encounter for IUD removal Cervical cancer screening Prediabetes IUD check up Encounter for IUD insertion Left breast lump Well woman exam Family planning Hx of transfusion of packed red blood cells Migraine Seizures Non-insulin dependent type 2 diabetes mellitus Sleep apnea treated with continuous positive airway pressure (CPAP) Hypothyroidism Elevated cholesterol Obesity (BMI 30-39.9) Supraumbilical hernia HTN (hypertension) Anemia History of hypothyroidism Diastasis recti Depression Asthma GERD (gastroesophageal reflux disease) Surgical History S/P laparoscopic sleeve gastrectomy History of esophagogastroduodenoscopy (EGD) Hx of section History of umbilical hernia repair (05/13/19) Family History Father No problems noted. Mother HTN (hypertension) Asthma Hyperthyroidism Diabetes Paternal Aunt Breast cancer Son Asthma Son Asthma ADHD Son Asthma Daughter Autism Social History Household Members: Spouse Housing: Apartment Are you a primary wound care specialist to a significant other at home: No Do you presently have visiting nurse or other home services: No Alcohol intake: former Comment: Patient gait and balance are steady. Patient Tobacco Use Status: Never used Tobacco service: No Sexual orientation: Straight/Heterosexual Gender identity: Female Female Reproductive History Menstrual Age of Menarche: 13 Review of Systems Const All systems reviewed & are unremarkable except as noted in HPI and below Physical Exam Vital Signs: Last Vital Signs Pulse 105 H 03/06/25 10:18 BP 112/88 03/06/25 10:18 Pulse Ox 98 03/06/25 10:18 Oxygen Delivery Method Room Air 03/06/25 10:18 BMI result Body Mass Index 28.3 Const General: no acute distress, alert and awake Resp Effort & Inspection: normal respiratory effort and able to speak in complete sentences Auscultation: clear to auscultation bilaterally Cardio Rate: regular rate Rhythm: regular rhythm Heart sounds: S1 normal heart sound present and S2 normal heart sound present GI Palpation (GI): Soft to palpation and nontender General: Yes no CVA tenderness Back/Spine/Pelvis Back: no CVA tenderness Skin Rashes: no rashes Extrem General: No edema Results Reviewed Nephrology Results: Hgb, (12.0-16.0) 11.0 g/dl L 02/27/25 WBC, (4.8-10.8) 3.1 X10*3/uL L 02/27/25 Plt Count, (160-400) 113 X10*3/uL L 02/27/25 Sodium, (135-145) 140 mmol/L Today Potassium, (3.3-5.1) 2.8 mmol/L L* Today Chloride, (96-108) 105 mmol/L Today Carbon Dioxide, (22-29) 20 mmol/L L Today BUN, (9-16) 15 mg/dL Today Creatinine, (0.5-1.4) 0.61 mg/dL Today Calcium, (8.4-10.2) 9.1 mg/dL Δ Today Urine Protein, (Neg-Trace) 100 (2+) mg/dL H 02/23/25 Assessment & Plan Assessment & Plan (1) Hypokalemia: Code(s): E87.6 - Hypokalemia Category: Medical Plan Hypokalemia with serum alkalosis of unknown etiology seems to have no clear source of GI loss, though may have some acid coming up as she does report saliva coming up with vomiting, states no actual vomit. hypokalemia was improving as vomiting up saliva resolved- patient due for re-check, she agrees to go to lab now. she has completed outpatient oral potassium replacement regimen of 40meq daily for 7 days VBG pH showed alkalosis- pt declined ABG after two unsuccessful attempts at collection, so unable to evaluate definitively if alkalosis is metabolic or respiratory. she will get blood work today and will discuss plan based on results. Discussed with Dr Morrow. Orders: Orders Basic Metabolic Panel Today E87.6 - Hypokalemia Osmolality, Serum Today E87.6 - Hypokalemia Aldosterone 03/10/25 E87.6 - Hypokalemia Basic Metabolic Panel 03/10/25 E87.3 - Alkalosis, E87.6 - Hypokalemia Medications: New potassium chloride ER (K-Tab) 20 mEq PO TID 21 tabs 0RF 7 days E87.6 - Hypokalemia Discontinued potassium chloride ER (K-Tab) Discontinued Reason: Patient Completed Course 20 mEq PO BID 14 tabs 0RF Coding Level of Care Code Est Pt Level 3 (48758) Diagnoses Hypokalemia E87.6
[2025-03-06 10:18] VITALS: BP 112/88; PULSE 105; O2SAT 98; BMI 28.3
--- OUTSIDE RECORDS SUMMARY | 2025-03-06 10:44 | XMS_ITS | Encounter Summary ---
Author Organization [employer] Address [address] [place] [address] [address] [place] [address] Care Team Providers Care Assembler Brazer Name Role Phone Sarah Bradley MD Primary Care Provide r Bruce Cruz RN Unavailable [phone] Veronica Preston Unavailable Encounter Details Date Type Department Care Team (Latest Contact Info) Description 12/15/2020 Abstract [facility] CONVERSIONS Dental, Provider, DDS Social History Tobacco [...] on filedocumented in this encounter Care Teams Assembler Brazer Relationship Specialty Start Date End Date Sarah Bradley MD [address] [place] [id number] PCP - General Family Medicine 06/22/18 Bruce Cruz, RN [address] [place] [id number] Registered Nurse Family Medicine 01/15/25 Veronica Preston 01/15/25 Aisha Savage Bingo AttendantDoughmaker 04/11/24 documented as of this encounter
== END 2025-03-06 12:12 | disposition home or self-care (01) ==
LOC: HO.HKA 10:04
PROVIDERS: PCP Internal Medicine; Visit Provider Nurse Practitioner Family
DX: E87.6 Hypokalemia (principal)
CPT/HCPCS: 99213

== ENCOUNTER 2025-03-06 10:03 | Outpatient (REF) | payer MEDICAID, SELFPAY ==
[2025-03-06 11:55] LABS: Osmolality, Serum 294 mosm/kg (281-305)
[2025-03-06 12:14] LABS: Anion Gap 18 (12-20); Blood Urea Nitrogen 15 mg/dL (9-16); Calcium 9.1 mg/dL (8.4-10.2); Carbon Dioxide 20 mmol/L (22-29); Chloride 105 mmol/L (96-108); Estimated Glomerular Filt Rate > 60; Sodium 140 mmol/L (135-145)
[2025-03-06 13:23] LABS: Potassium 2.8 mmol/L (3.3-5.1)
== END 2025-03-06 10:04 | disposition home or self-care (01) ==
LOC: HO.LAB 10:03
PROVIDERS: PCP Internal Medicine; Visit Provider Nurse Practitioner Family
DX: E87.6 Hypokalemia (principal); E87.3 Alkalosis
CPT/HCPCS: 36415; 80048; 83930; 99212

== ENCOUNTER 2025-03-10 09:53 | Outpatient (REF) | payer MEDICAID, SELFPAY ==
--- OUTSIDE RECORDS SUMMARY | 2025-03-10 10:27 | XMS_ITS | Clinical Summary ---
Author Organization [employer] [facility] ity Address [address] [place] [address] Care Team Providers Care Platform Power Technician Name Role Phone Unavailable Primary Care [...] 2023-2 5 season) 2024 Influenza Vaccine (#1) 2025 HIB Vaccines Aged Out No longer [...]
--- OUTSIDE RECORDS SUMMARY | 2025-03-10 10:27 | XMS_ITS | Encounter Summary ---
Author Organization [employer] Address [address] [place] [address] Care Team Providers Care Test Administrator Name Role Phone Sarah Bradley MD Primary Care Provide r Bruce Cruz RN Unavailable [phone] Veronica Preston Unavailable Encounter Details Date Type Department Care Team (Late st Contact Info) Description 03/06/2025 Orders Only GENERIC EXTERNAL DATA DEPARTMENT Provider, Generic External Data Social History Tobacco Use Types Packs/Day Years Used Date Smoking Tobacco: Never Passive Smoke Exposure: Never Smokeless Tobacco: Never Alcohol Use Standard Drinks/Week Comments Defer 0 (1 standard drink = 0.6 oz pur e alcohol) Depression Answer Date Recorded Patient Health Questionnaire-9 Score 2 02/12/2025 Patient Health Questionnaire-9 Score 2 02/12/2025 Last PHQ-9: Questionnaire Data Not on file 0 02/12/2025 Housing Stability Answer Date Recorded What is [...] things needed for daily living? No 02/06/2024 Intimate Partner Violence Answer Date R ecorded Within the last year, have y ou been afraid of your partner or ex-partner? 2 02/17/2025 Within the last year, have y ou been humiliated or emotionally abused in other ways by your partner or ex-partner? 2 Within the last year, have y ou been kicked, hit, slapped, or otherwise physically hurt by your partner or ex-partner? 2 02/17/2025 Within the last year, have y ou been raped or forced to have any kind of sexual activity by your partner or ex-partner? 2 02/17/2025 Utilities Answer Date Recorded In the past 12 months, has t he [employer], gas, oil or water company threatened to shut off services in your home? No 02/06/2024 Depression Answer Date Recorded Patient Health Questionnaire-2 Score 0 02/12/2025 Internet Access Answer Date Recorded Internet Access [...] Procedure Name Priority Date/Time Associated Diagnosis Comments OSMOLALITY (SERUM) Routine 03/06/2025 10 :49 AM EDT BASIC METABOLIC PANEL Routine 03/06/2025 10:49 AM EDT documented in this encounter Results * (ABNORMAL) Basic Metabolic Panel (03/06/2025 10:49 AM EDT) Sodium 140 135 - 145 mmol/L [facility] Potassium 2.8(LL) 3.3 - 5.1 mmol/L [facility] Comment:Critical value for K : Results called to and read back by:JOHNSON Lovell Person calling: NICKOLAS Date: 03-06-25 Time: 1322 Chloride 105 96 - 108 mmol/L [facility] Carbon Dioxide 20(L) 22 - 29 mmol/L [facility] Anion Gap 18 12 - 20 [facility] Urea Nitrogen (BUN) 15 9 - 16 mg/dL [facility] Creatinine, Serum 0.61 0.5 - 1.4 mg/dL [facility] Estimated Glomerular Filt Rate >60 [facility] Comment:Chronic Kidney Disea se: Estimated GFR < 60 mL/min/[id number] Kidney Disease: Estimated GFR < 15 mL/min/1.73m2 Glucose 89 60 - 115 mg/dL [facility] Calcium 9.1 8.4 - 10.2 mg/dL [facility] 03/06/2025 10:4 9 AM EDT 03/06/2025 10:49 AM EDT us Generic External Data Provider LAB BLOOD ORDERAB LES Final Result Performing Organization Address [facility] Co de Phone Number [facility] [address] [place] [phone] * Osmolality, Serum (03/06/2025 10:49 AM EDT) Osmolality (Serum) 294 281 - 305 mosm/kg [facility] 03/06/2025 10:4 9 AM EDT 03/06/2025 10:49 AM EDT us Generic External Data Provider LAB BLOOD ORDERAB LES Final Result Performing Organization Address [facility] Co de Phone Number [facility] [address] [place] [phone] documented in this encounter Visit Diagnoses Not on filedocumented in this encounter Additional Health Concerns Assessment Noted Time PHQ-9 Depression Total Score: 2 02/13/20 25 2:23 PM EDT documented as of this encounter Care Teams Test Administrator Relationship Specialty Start Date End Date Sarah Bradley MD [address] [place] [phone] PCP - General Family Medicine 06/22/18 Bruce Cruz, RN [address] [place] [phone] Registered Nurse Family Medicine 01/15/25 Veronica Preston 01/15/25 Aisha Savage Biology InternSuperintendent Maintenance Airports 04/11/24 documented as of this encounter
[2025-03-10 13:06] LABS: Blood Urea Nitrogen 15 mg/dL (9-16); Calcium 8.7 mg/dL (8.4-10.2); Estimated Glomerular Filt Rate > 60
[2025-03-10 13:16] LABS: Anion Gap 15 (12-20); Carbon Dioxide 26 mmol/L (22-29); Chloride 105 mmol/L (96-108); Potassium 3.0 mmol/L (3.3-5.1); Sodium 143 mmol/L (135-145)
[2025-03-16 11:29] LABS: Plasma Renin Activity 6.13 ng/mL/h (0.25-5.82)
== END 2025-03-10 09:54 | disposition home or self-care (01) ==
LOC: HO.LAB 09:53
PROVIDERS: PCP Internal Medicine; Visit Provider Nurse Practitioner Family
DX: E87.3 Alkalosis (principal); E87.6 Hypokalemia
CPT/HCPCS: 36415; 80048; 82088

== ENCOUNTER 2025-03-13 13:14 | Outpatient (AMB) | payer MEDICAID, SELFPAY ==
--- NOTE | 2025-03-13 13:18 | MHC.OFFVISWM ---
VS Expanded 03/13/25 13:30 BP 116/70 Blood Pressure Location Rt brachial Blood Pressure Position Sitting Pulse 88 Pulse Source Pulse Oximeter Temp 96.7 F L Temperature Source Temporal Artery Scan Pulse Oximetry 97 Oxygen Delivery Method Room Air Height 4 ft 11 in Weight 141 lb 3.2 oz BMI 28.5 Body Fat % 33.4 Body Fat Mass 47.2 Fat Free Mass 94.0 Visceral Fat Rating 6.0 Body Water % 47.7 Body Water Mass 67.2 Muscle Mass/Score 89.0 Basal Metabolic Rate/Score 1,301 Intake Visit Reasons: OV PO LSG 01/14/25 Lead Database Administrator Required: Yes Lead Database Administrator Services: Lead Database Administrator Present Lead Database Administrator Name: hospital cmi Allergies latex (LATEX) Allergy (Intermediate, Verified 03/13/25 13:21) HANDS SWELL Medication List - Last Reconciled 03/13/25 by CHARU Santizo docusate sodium (Colace) 100 mg PO BID levothyroxine 137 mcg PO DAILY@0600 pantoprazole 40 mg PO DAILY potassium chloride ER (K-Tab) 40 mEq (2 x 20 mEq) PO BID 7 days HPI Comments Details: This?a?39?yo female who is s/p LSG without hiatal hernia repair on?01/14/2025. Presents for 2 month post op visit. Weight today is 141.2 pounds, with a BMI of 28.5. There has been a 46.6 pound weight loss,(initial weight 187.8 pounds) since starting the program on 09/20/2024 reflecting a 24.8 % total body weight loss and a weight loss of 26.4 pounds since surgery (operative weight 167.6 pounds) reflecting a 15.7 % TBWL since surgery. Reports infrequent but normal bowel movements every 2-3 days and uses stool softeners regularly. taking celebrate mvi Since last being seen in the office, she was admitted to the hospital from 02/23 through 02/26. She had persistent hypokalemia, treated with both IV and oral replacement. Seen by Nephrology who felt this was not renal in origin. She was additionally seen by bariatric surgery. Her diet was advanced and she was discharged home on oral potassium supplementation. Followed up with nephrology and continues on oral K+ supplements. Present meal plan includes: celebrate rebuild 1/2 scoop at 8-10, celebrate bar 11-1 another bar 3-5 meal at 6 pm with 3 forks protein and 3 forks veg another shake 8-10 Drinking 32-42 oz water ? Exercise routine includes: walking outside, 2 days per week, 90 min, joined [employer] 3 x per week, [id number] PFS Medical History BMI 37.0-37.9, adult Encounter for IUD removal Cervical cancer screening Prediabetes IUD check up Encounter for IUD insertion Left breast lump Well woman exam Family planning Hx of transfusion of packed red blood cells Migraine Seizures Non-insulin dependent type 2 diabetes mellitus Sleep apnea treated with continuous positive airway pressure (CPAP) Hypothyroidism Elevated cholesterol Obesity (BMI 30-39.9) Supraumbilical hernia HTN (hypertension) Anemia History of hypothyroidism Diastasis recti Depression Asthma GERD (gastroesophageal reflux disease) Surgical History S/P laparoscopic sleeve gastrectomy History of esophagogastroduodenoscopy (EGD) Hx of section History of umbilical hernia repair (05/13/19) Family History Father No problems noted. Mother HTN (hypertension) Asthma Hyperthyroidism Diabetes Paternal Aunt Breast cancer Son Asthma Son Asthma ADHD Son Asthma Daughter Autism Social History Household Members: Spouse Housing: Apartment Are you a primary menagerie caretaker to a significant other at home: No Do you presently have visiting nurse or other home services: No Alcohol intake: former Comment: Patient gait and balance are steady. Patient Tobacco Use Status: Never used Tobacco service: No Sexual orientation: Straight/Heterosexual Gender identity: Female Female Reproductive History Menstrual Age of Menarche: 13 Physical Exam Const General: healthy appearing and no acute distress Resp Effort & Inspection: normal respiratory effort Auscultation: clear to auscultation bilaterally Cardio Rate: regular rate Rhythm: regular rhythm GI Auscultation: normal bowel sounds Extrem General: Yes normal to inspection Assessment & Plan Assessment & Plan (1) S/P laparoscopic sleeve gastrectomy: Code(s): Z98.84 - Bariatric surgery status Category: Surgical Plan: 39-year-old female, post sleeve gastrectomy. Overall doing well. Has no significant complaints at today's visit. Encouraged to increase days at the gym so she may achieve a goal of burning 2000 calories per week. We will have her return to the office in approximately 1 month. Continue to communicate with Dr. Caraballo on a weekly basis.
--- OUTSIDE RECORDS SUMMARY | 2025-03-13 13:18 | XMS_ITS | Clinical Summary ---
Author Organization [employer] [facility] ity Address [address] [place] [address] Care Team Providers Care Sec Accountant Name Role Phone Unavailable Primary Care Provider [...] 5 Years) and At-Risk Patients (6 to 49 Years) Aged Out No longer eligible b ased on patient's age to complete this topic RSV Immunization Patients Un rodolfo 20 months Aged Out No longer eligible b ased on patient's age to complete this topic Varicella Vaccines Aged Out No longer eligible based on patient's age to complete this topic
[2025-03-13 13:30] VITALS: BP 116/70; PULSE 88; TEMP 35.9; O2SAT 97; BMI 28.5
== END 2025-03-13 13:40 | disposition home or self-care (01) ==
LOC: HO.HBS 13:15
PROVIDERS: PCP Internal Medicine; Visit Provider Physician Assistant Surgical
DX: Z98.84 Bariatric surgery status (principal)
CPT/HCPCS: 99024

== ENCOUNTER → 2025-03-13 13:14 | Outpatient (BNVA) | payer MEDICAID, SELFPAY | PROVIDERS: PCP Internal Medicine; Visit Provider Physician Assistant Surgical | DX: Z48.815 Encounter for surgical aftercare following surgery on the digestive system (principal); Z98.84 Bariatric surgery status | CPT/HCPCS: 99212 ==

== ENCOUNTER 2025-03-19 09:33 | Outpatient (REF) | payer MEDICAID, SELFPAY ==
--- OUTSIDE RECORDS SUMMARY | 2025-03-19 10:01 | XMS_ITS | Clinical Summary ---
Author Organization [employer] [facility] ity Address [address] [place] [address] Care Team Providers Care Downstairs Maid Name Role Phone Unavailable Primary Care Provider [...]
--- OUTSIDE RECORDS SUMMARY | 2025-03-19 10:01 | XMS_ITS | Encounter Summary ---
Author Organization [employer] Address [address] [facility] [address] [place] [address] Care Team Providers Care Water Softener Servicer Name Role Phone Sarah Bradley MD Primary Care Provide r Bruce Cruz RN Unavailable [phone] Veronica Preston Unavailable Reason for Visit * Reason Onset Date Comments Hospital Follow-up 03/10/2025 Encounter Details Date Type Department Care Team ([facility] st Contact Info) Description 03/10/2025 Telephone [facility] [address] [place], [place] [phone] Sarah Bradley MD [address] [place], [place] [phone] Hospital Follow-up Social History Tobacco Use Types Packs/Day Years [...] the past 12 months, has t he [employer], gas, oil or water company threatened to [...] encounter Miscellaneous Notes * Telephone Encounter - Shayy Fried - 03/10/2025 11:52 AM EDT Tc from pt requesting a HDF appt. Hospital: [facility] Date of admission: 02/23 Discharge date: 02/26 Diagnosed: gastritis *Send message to [place] Clinical Care Coordinators Contact pt at [phone] (kosovan) documented in this encounter Plan of Treatment Upcoming Encounters Date Type Department Care Team (Late st Contact Info) Description 03/25/2025 1:15 PM EDT Office Visit [facility] [address] [place] [address] Sarah Bradley MD [address] [place] [phone] documented as of this encounter Visit Diagnoses Not on filedocumented in this encounter Additional Health Concerns Assessment Noted Time PHQ-9 Depression Total Score: 2 02/13/20 2:23 PM EDT documented as of this encounter Care Teams Water Softener Servicer Relationship Specialty Start Date End Date Sarah Bradley MD [address] [place] [phone] PCP - General Family Medicine 06/22/18 Bruce Cruz, MIQUEL [address] [place] [phone] Registered Nurse Family Medicine 01/15/25 Veronica Preston 01/15/25 Aisha Savage Entry Level Project EngineerChina Painter 04/11/24 documented as of this encounter
[2025-03-19 11:06] LABS: Anion Gap 11 (12-20); Blood Urea Nitrogen 12 mg/dL (9-16); Calcium 8.6 mg/dL (8.4-10.2); Carbon Dioxide 26 mmol/L (22-29); Chloride 108 mmol/L (96-108); Estimated Glomerular Filt Rate > 60; Potassium 3.3 mmol/L (3.3-5.1); Sodium 142 mmol/L (135-145)
== END 2025-03-19 09:34 | disposition home or self-care (01) ==
LOC: HO.LAB 09:33
PROVIDERS: PCP Internal Medicine; Visit Provider Nurse Practitioner Family
DX: N18.30 Chronic kidney disease, stage 3 unspecified (principal)
CPT/HCPCS: 36415; 80048

== ENCOUNTER 2025-03-24 09:09 | Outpatient (REF) | payer MEDICAID, SELFPAY ==
--- OUTSIDE RECORDS SUMMARY | 2025-03-24 09:28 | XMS_ITS | Clinical Summary ---
Author Organization [employer] [facility] ity Address [address] [place] [address] Care Team Providers Care Pressure Supervisor Name Role Phone Unavailable Primary Care Provider [...] Vaccine ( - 2023-2 5 season) 2024 Depression Screening 09/04/2024 Influenza Vaccine (#1) 2025 HIB Vaccines Aged [...]
--- OUTSIDE RECORDS SUMMARY | 2025-03-24 09:28 | XMS_ITS | Encounter Summary ---
Author Organization [employer] Address [address] [place] [address] Care Team Providers Care Engineering Design Supervisor Name Role Phone Sarah Bradley MD Primary Care Provide r Bruce Cruz RN Unavailable [phone] Veronica Preston Unavailable Reason for Visit * Reason Onset Date Comments Hospital Follow-up 03/10/2025 Encounter Details Date Type Department Care Team ([facility] st Contact Info) Description 03/10/2025 Telephone [facility] [address] [place], [place] [phone] Sarah Bradley MD [address] [place], [place] [phone] Hospital Follow-up Social History Tobacco Use Types [...] the past 12 months, has t he [employer], gas, oil or water company threatened to [...] from pt requesting a HDF appt. Hospital: [facility] Date of admission: 02/23 Discharge date: 02/26 Diagnosed: gastritis *Send message to [place] Clinical Care Coordinators Contact pt at [phone] (marshallese) documented in this encounter Plan of Treatment Upcoming Encounters Date Type Department Care Team (Late st Contact Info) Description 03/25/2025 1:15 PM EDT Office Visit [facility] [address] [place] [address] Sarah Bradley MD [address] [place] [phone] documented as of this encounter Visit Diagnoses Not on filedocumented in this encounter Additional Health Concerns Assessment Noted Time PHQ-9 Depression Total Score: 2 02/13/20 2:23 PM EDT documented as of this encounter Care Teams Engineering Design Supervisor Relationship Specialty Start Date End Date Sarah Bradley MD [address] [place] [phone] PCP - General Family Medicine 06/22/18 Bruce Cruz, MIQUEL [address] [place] [phone] Registered Nurse Family Medicine 01/15/25 Veronica Preston 01/15/25 Aisha Savage Medical Management SpecialistE Learning Designer 04/11/24 documented as of this encounter
== END 2025-03-24 09:10 | disposition home or self-care (01) ==
LOC: HO.LAB 09:09
PROVIDERS: PCP Internal Medicine; Visit Provider Nurse Practitioner Family
DX: E87.6 Hypokalemia (principal)
CPT/HCPCS: 80307

== ENCOUNTER 2025-03-24 10:17 | Outpatient (AMB) | payer OTHER, SELFPAY ==
--- NOTE | 2025-03-24 10:00 | A.OFFWM_ITS ---
Intake Intake Visit Reasons: VIDEO PO LSG 01/14/25 Allergies latex (LATEX) Allergy (Intermediate, Verified 05/14/25 14:00) HANDS SWELL [facility] Medical History BMI 37.0-37.9, adult Encounter for IUD removal Cervical cancer screening Prediabetes IUD check up Encounter for IUD insertion Left breast lump Well woman exam Family planning Hx of transfusion of packed red blood cells Migraine Seizures Non-insulin dependent type 2 diabetes mellitus Sleep apnea treated with continuous positive airway pressure (CPAP) Hypothyroidism Elevated cholesterol Obesity (BMI 30-39.9) Supraumbilical hernia HTN (hypertension) Anemia History of hypothyroidism Diastasis recti Depression Asthma GERD (gastroesophageal reflux disease) Surgical History S/P laparoscopic sleeve gastrectomy History of esophagogastroduodenoscopy (EGD) Hx of section History of umbilical hernia repair (05/13/19) Family History Father No problems noted. Mother HTN (hypertension) Asthma Hyperthyroidism Diabetes Paternal Aunt Breast cancer Son Asthma Son Asthma ADHD Son Asthma Daughter Autism Social History Household Members: Spouse Housing: Apartment Are you a primary career resource technician to a significant other at home: No Do you presently have visiting nurse or other home services: No Alcohol intake: former Comment: Patient gait and balance are steady. Patient Tobacco Use Status: Never used Tobacco service: No Sexual orientation: Straight/Heterosexual Gender identity: Female Female Reproductive History Menstrual Age of Menarche: 13 Behavioral Health Assessment Weight Management Therapy Therapy Notes0 Details Subjective: Patient reports overall improvement since the last encounter. She expresses concern about her low potassium levels and is actively following up with [facility] for ongoing monitoring and treatment. She reports no episodes of vomiting for the past 21 days. The patient states her mood has improved; she has been more socially active and attentive to home responsibilities. She continues to attend counseling at [facility], having seen her therapist last week, and maintains biweekly therapy appointments on Fridays. Objective: Patient presented for a post-operative follow-up appointment via telehealth. During the session, interventions included reviewing her progress in mood and daily functioning, reinforcing the importance of ongoing medical follow-up for electrolyte management, and providing psychoeducation about the relationship between physical health and emotional well-being. Supportive counseling was provided to validate her efforts in maintaining therapy engagement and to encourage continued participation in social and home activities. Coping strategies for managing health-related anxiety were discussed, including mindfulness and relaxation techniques. The patient was encouraged to maintain open communication with her nephrology and behavioral health providers and to monitor for any recurrence of symptoms. Assessment/Response: * Mental status: Alert and oriented x3, mood euthymic, affect congruent, speech normal, thought process logical, no evidence of psychosis or cognitive impairment, insight and judgment intact. * Risk reported/identified: WNL Food/Weight/Diet Expectations of change PT started the program on 09/20/2024 at 187 lbs. Weight on surgery day 01/14/2025: 165Lbs PO weight 01/22/2025:159Lbs. PO weight 03/18/2055:139Lbs PT's target weight: 115-120Lbs PT is implementing the following: Current meal plan: Liquid plan. 2 shakes, 1 bar and 1 meal. Also drinking about 30oz water/clear liquid at day. Exercise plan: outdoor walking or treadmill. Attending [employer] Scale: Yes. Communication w/ provider: every 2 weeks on Tuesdays. Assessment & Plan Assessment & Plan (1) Adjustment disorder with mixed anxiety and depressed mood: Code(s): F43.23 - Adjustment disorder with mixed anxiety and depressed mood (2) S/P laparoscopic sleeve gastrectomy: Code(s): Z98.84 - Bariatric surgery status Plan No safety concerns or issues were identified that would necessitate behavioral health monitoring. The patient declined further visits but is aware of the available behavioral health support if needed in the future. Telehealth Telehealth Telehealth Platform: [employer] Location of provider rendering services: other (Home office. [place], [place]) Location of patient: address on file Patient Identification confirmed using: Name, : Yes Telehealth method: video Patient verbally consented to treatment: Yes Patient verbally consented to billing insurance company: Yes Patient informed of any privacy concerns related to visit: Yes Minutes spent on Phone/Video with Pt.: 60 Coding Level of Care Code Established Pt Tele Psytx >53 mins ([id number]) Patient Type Established Diagnoses Adjustment disorder with mixed anxiety and depressed mood F43.23 S/P laparoscopic sleeve gastrectomy Z98.84 Time Spent (min) 60
== END 2025-03-24 11:11 | disposition home or self-care (01) ==
LOC: HO.HBST 10:17
PROVIDERS: PCP Internal Medicine; Visit Provider Counselor Mental Health
DX: F43.23 Adjustment disorder with mixed anxiety and depressed mood (principal); Z98.84 Bariatric surgery status
CPT/HCPCS: 90837

== ENCOUNTER 2025-03-31 11:14 | Outpatient (AMB) | payer MEDICAID, SELFPAY ==
[2025-03-31 11:37] VITALS: PULSE 70; O2SAT 98; BMI 28.8
--- NOTE | 2025-03-31 11:37 | MHC.OFFVIS ---
Vital Signs 03/31/25 11:37 Height 4 ft 11 in Weight 142 lb 8 oz BMI 28.8 Pulse 70 Pulse Source Pulse Oximeter Pulse Oximetry (%) 98 Oxygen Delivery Method Room Air Intake Visit Reasons: 6mon follow-up Intake Note: Patient presents follow up KELL. Compliance in chart( days, >=4hr-23%, Average usage- 1hr 38min, Pressure 11cm, Med leaks- 1.5, AHI-0.6). Patient states since her biatric surgery (01/2025) she hasnt used machine has she feels like it sufficating her. Director Of Property Management Required: Yes Director Of Property Management Language: Straight Tooth Gear Generator Operator Services: Director Of Property Management Present Director Of Property Management Name: Gregory [id number] Information Interpreted: non-clinical & clinical Accompanied by: Spouse Allergies latex (LATEX) Allergy (Intermediate, Verified 03/31/25 11:42) HANDS SWELL HPI Comments Details: 39-yr-old Azeri speaking female presents for follow-up visit of KELL post Gastrectomy. HST which showed severe KELL w/ AHI 65/hr and O2 naidr 63%. PMH January 2025 Bariatric surgical procedure she was 191lbs and now she is 142lbs. KELL Compliance Reviewed 12/2024- 03/2025 >4 hours 27% days and days Avg use is 1 hour and 38 min Pressures set at [id number] Leaks 3.3 Max 37.1 AHI is 0.6/hr Patient states since her surgical procedure when she places the mask on her face, she feels as if she is being suffocated by the pressure of the air forcefully blowing on her face. She feels bloated and frustrated causing her to be non compliant. She goes to sleep at 9pm and wakes up at 6am has nocturia will make 4 trips to the bathroom at night. She has 4 children denies stress incontinence and loss of urine due to coughing, laughing or exercising. She has a weak pelvis. She denies morning headaches, and symptoms of restless legs with numbness, tingling. She is being followed with weight management. Her diet is improved, she meal plans and is mindful of portion control. Mood and memory is stable. She washes the mask, and hoses, changes the filters, and fills the reservoir as needed. [facility] Medical History (Updated 03/31/25 @ 20:30 by Juan Diego Park PA-C) BMI 37.0-37.9, adult Encounter for IUD removal Cervical cancer screening Prediabetes IUD check up Encounter for IUD insertion Left breast lump Well woman exam Family planning Hx of transfusion of packed red blood cells Migraine Seizures Non-insulin dependent type 2 diabetes mellitus Sleep apnea treated with continuous positive airway pressure (CPAP) Hypothyroidism Elevated cholesterol Obesity (BMI 30-39.9) Supraumbilical hernia HTN (hypertension) Anemia History of hypothyroidism Diastasis recti Depression Asthma GERD (gastroesophageal reflux disease) Surgical History S/P laparoscopic sleeve gastrectomy History of esophagogastroduodenoscopy (EGD) Hx of section History of umbilical hernia repair (05/13/19) Family History Father No problems noted. Mother HTN (hypertension) Asthma Hyperthyroidism Diabetes Paternal Aunt Breast cancer Son Asthma Son Asthma ADHD Son Asthma Daughter Autism Social History Household Members: Spouse Housing: Apartment Are you a primary geriatric personal care aide to a significant other at home: No Do you presently have visiting nurse or other home services: No Alcohol intake: former Comment: Patient gait and balance are steady. Patient Tobacco Use Status: Never used Tobacco service: No Sexual orientation: Straight/Heterosexual Gender identity: Female Female Reproductive History Menstrual Age of Menarche: 13 Physical Exam Vital Signs: Last Vital Signs Pulse 70 03/31/25 11:37 Pulse Ox 98 03/31/25 11:37 Oxygen Delivery Method Room Air 03/31/25 11:37 BMI result Body Mass Index 28.8 Const General: cooperative, comfortable and no acute distress Orientation/consciousness: patient oriented x3 HEENT Other: Mallampati stage 4 Face and sinus: Yes normal facial exam and Yes face symmetric Eyes Pupils: Equal, round and reactive pupils present Neck Neck: Yes full ROM and Yes supple Resp Effort & Inspection: normal respiratory effort Auscultation: clear to auscultation bilaterally Neuro General: patient oriented x3 and moves all extremities Cranial nerves: Yes CN's II-XII intact bilaterally, Yes Facial sensation intact/muscles of mastication intact, Yes Equal, round and reactive pupils present, Yes Normal accommodation reflex present, Yes Bilaterally intact EOM present, Yes Nystagmus not present, Yes Normal facial strength present, Yes Midline tongue present, Yes Ability to bilaterally rotate head present and Yes Ability to bilaterally elevate shoulders present Gait exam (Neuro): Normal gait present Motor exam (neuro): 5/5 motor strength present throughout and Normal motor muscle tone present throughout Psych Mental Status: mental status grossly normal Attitude: cooperative Results Reviewed Results Reviewed: KELL Compliance Reviewed 12/2024- 03/2025 >4 hours 27% days and days Avg use is 1 hour and 38 min Pressures set at [id number] Leaks 3.3 Max 37.1 AHI is 0.6/hr CT pelvis 2024 IMPRESSION: No acute findings. Fatty infiltration of the liver. Assessment & Plan Assessment & Plan (1) KELL (obstructive sleep apnea): Comment: Severe degree of sleep apnea. The AHI was 65/hr and oxygen yakelin was 63%. Never started on PAP tx. Code(s): G47.33 - Obstructive sleep apnea (adult) (pediatric) Category: Medical (2) Vitamin D deficiency: Comment: she is taking a bariatric multivitamin per weight management Code(s): E55.9 - Vitamin D deficiency, unspecified Category: Medical (3) Vitamin A deficiency: Comment: multi vitamin per weight management Code(s): E50.9 - Vitamin A deficiency, unspecified Category: Medical (4) Excessive daytime sleepiness: Comment: ESS 15 Code(s): G47.19 - Other hypersomnia Category: Medical (5) Anemia: Code(s): D64.9 - Anemia, unspecified Category: Medical Qualifiers: Anemia type: iron deficiency Iron deficiency anemia type: unspecified iron deficiency Qualified Code(s): D50.9 - Iron deficiency anemia, unspecified (6) Nocturia more than twice per night: Code(s): R35.1 - Nocturia Category: Medical Plan KELL will evaluate with in lab titration, post gatrectomy and on CPAP therapy [id number]. Compliance reviewed with patient today, use daily and for >4 hours each night. Fatigue labs reviewed with patient today she is anemic, takes a multivitamin per weight management. Calciprotein elevated chrons or UC. Anemia Iron Deficiency. Nocturia being followed by her apparatus engineering technologist for weak pelvic floor. F/U in 3 months for compliance. Orders: Orders RT PSG in-lab sleep titration Today G47.33 - Obstructive sleep apnea (adult) (pediatric) Patient Instructions: Sleep Hygiene provided: set a scheduled bedtime and wake time to help regulate the circadian rhythm and balance the release of pituitary hormones. Sleep in a dark room, temperatures below 68 degrees, and no devices n bed. Limit caffeinated products 6 hours prior to bed, and limit fluids 2-4 hours prior to bed. Gentle night yoga, diffusing essential oils, and playing soft music can be relaxing. Coding Level of Care Code Est Pt Level 4 (42409) Diagnoses KELL (obstructive sleep apnea) G47.33 Vitamin D deficiency E55.9 Vitamin A deficiency E50.9 Excessive daytime sleepiness G47.19 Iron deficiency anemia, unspecified iron deficiency anemia type D50.9 Anemia type: iron deficiency Iron deficiency anemia type: unspecified iron deficiency Nocturia more than twice per night R35.1 Time Spent (min) 25 Comment evaluate cpap pressures
--- OUTSIDE RECORDS SUMMARY | 2025-03-31 12:31 | XMS_ITS | Clinical Summary ---
Author Organization [facility] ity Address [address] [place] [address] Care Team Providers Care Spout Liner Name Role Phone Unavailable Primary Care Provider [...]
--- OUTSIDE RECORDS SUMMARY | 2025-03-31 12:31 | XMS_ITS | Encounter Summary ---
Author Organization [employer] Address [address] [facility] [address] [place] [address] Care Team Providers Care Firer Locomotive Crane Name Role Phone Sarah Bradley MD Primary Care Provide r Bruce Cruz RN Unavailable [phone] Veronica Preston Unavailable Reason for Visit * Reason Onset Date Comments Hospital Follow-up 03/10/2025 Encounter Details Date Type Department Care Team ([facility] st Contact Info) Description 03/10/2025 Telephone [facility] MED[facility]INE [address] [place], [place] [phone] Sarah Bradley MD [address] [place], [place] [phone] Hospital Follow-up Social History Tobacco Use Types [...] the past 12 months, has t he [employer], gas, oil or water company threatened to [...] from pt requesting a HDF appt. Hospital: [facility] Date of admission: 02/23 Discharge date: 02/26 Diagnosed: gastritis *Send message to [place] Clinical Care Coordinators Contact pt at [phone] (burmese) documented in this encounter Plan of Treatment Not on file documented as of this encounter Visit Diagnoses Not on filedocumented in this encounter Additional Health Concerns Assessment Noted Time PHQ-9 Depression Total Score: 2 02/13/20 25 2:23 PM EDT documented as of this encounter Care Teams Firer Locomotive Crane Relationship Specialty Start Date End Date Sarah Bradley MD [address] [place] [address] PCP - General Family Medicine 06/22/18 Bruce Cruz, MIQUEL [address] [place] [id number] Registered Nurse Family Medicine 01/15/25 Veronica Preston 01/15/25 Aisha Savage Station Baggage AgentGlass Vial Bending Conveyor Feeder 04/11/24 documented as of this encounter
== END 2025-03-31 12:24 | disposition home or self-care (01) ==
LOC: HO.HSMS 11:15
PROVIDERS: PCP Internal Medicine; Visit Provider Physician Assistant Medical
DX: G47.33 Obstructive sleep apnea (adult) (pediatric) (principal); E55.9 Vitamin D deficiency, unspecified; E50.9 Vitamin A deficiency, unspecified; G47.19 Other hypersomnia; D50.9 Iron deficiency anemia, unspecified; R35.1 Nocturia
CPT/HCPCS: 99214

== ENCOUNTER → 2025-03-31 11:14 | Outpatient (BNVA) | payer MEDICAID, SELFPAY | PROVIDERS: PCP Internal Medicine; Visit Provider Physician Assistant Medical | DX: G47.33 Obstructive sleep apnea (adult) (pediatric) (principal); E55.9 Vitamin D deficiency, unspecified; E50.9 Vitamin A deficiency, unspecified; G47.19 Other hypersomnia; D64.9 Anemia, unspecified; D50.9 Iron deficiency anemia, unspecified; R35.1 Nocturia | CPT/HCPCS: 99212 ==

== ENCOUNTER 2025-04-02 10:55 | Outpatient (AMB) | payer MEDICAID, SELFPAY ==
--- NOTE | 2025-04-02 11:05 | HO.NEPHOV_ITS ---
Vital Signs 04/02/25 11:08 Height 4 ft 11 in Weight 142 lb BMI 28.7 BP 100/70 Blood Pressure Location Rt brachial Position Sitting Pulse 71 Pulse Source Pulse Oximeter Pulse Oximetry (%) 97 Oxygen Delivery Method Room Air Intake Visit Reasons: Hypokalemia Letter Sorting Machine Operator Required: Yes Letter Sorting Machine Operator Language: Benefits Processor Services: Letter Sorting Machine Operator Present Letter Sorting Machine Operator Name: Carolyn [id number] Information Interpreted: clinical only Accompanied by: Spouse Allergies latex (LATEX) Allergy (Intermediate, Verified 04/02/25 11:08) HANDS SWELL HPI Comments Details: 39 y/o female with a medical history of gastric sleeve surgery (reports on 01/14/25), pelvic floor weakness, KELL, hepatic steatosis, anemia, asthma, diabetes, hypothyroidism, HTN, chronic hypokalemia. Here for routine follow up for chronic hypokalemia. States she is feeling well. She has been taking oral potassium supplementation as prescribed- 80meq daily. she is not aware of having had low potassium in the past- discovered when hospitalized in February for epigastric pain and nausea. she denies pain, nausea, vomiting. denies chest pain, abdominal pain, shortness of breath, urinary symptoms, lower extremity edema. Denies nausea, vomiting, diarrhea. patient denies use of prescribed/non-prescribed diuretics. Reports she is only taking her supplements as prescribed by her gastric surgeon and is not taking any other supplements or weight loss drugs. potassium 3.3 on 03/19- this is with 80meq daily potassium chloride supplementation. urine diuretic screening submitted, pending. [facility] Medical History BMI 37.0-37.9, adult Encounter for IUD removal Cervical cancer screening Prediabetes IUD check up Encounter for IUD insertion Left breast lump Well woman exam Family planning Hx of transfusion of packed red blood cells Migraine Seizures Non-insulin dependent type 2 diabetes mellitus Sleep apnea treated with continuous positive airway pressure (CPAP) Hypothyroidism Elevated cholesterol Obesity (BMI 30-39.9) Supraumbilical hernia HTN (hypertension) Anemia History of hypothyroidism Diastasis recti Depression Asthma GERD (gastroesophageal reflux disease) Surgical History S/P laparoscopic sleeve gastrectomy History of esophagogastroduodenoscopy (EGD) Hx of section History of umbilical hernia repair (05/13/19) Family History Father No problems noted. Mother HTN (hypertension) Asthma Hyperthyroidism Diabetes Paternal Aunt Breast cancer Son Asthma Son Asthma ADHD Son Asthma Daughter Autism Social History Household Members: Spouse Housing: Apartment Are you a primary acute care certified nursing assistant to a significant other at home: No Do you presently have visiting nurse or other home services: No Alcohol intake: former Comment: Patient gait and balance are steady. Patient Tobacco Use Status: Never used Tobacco service: No Sexual orientation: Straight/Heterosexual Gender identity: Female Female Reproductive History Menstrual Age of Menarche: 13 Review of Systems Const All systems reviewed & are unremarkable except as noted in HPI and below Physical Exam Vital Signs: Last Vital Signs Pulse 71 04/02/25 11:08 BP 100/70 04/02/25 11:08 Pulse Ox 97 04/02/25 11:08 Oxygen Delivery Method Room Air 04/02/25 11:08 BMI result Body Mass Index 28.7 Const General: no acute distress, alert and awake Resp Effort & Inspection: normal respiratory effort and able to speak in complete sentences Auscultation: clear to auscultation bilaterally Cardio Rate: regular rate Rhythm: regular rhythm Heart sounds: S1 normal heart sound present and S2 normal heart sound present GI Palpation (GI): Soft to palpation and nontender General: Yes no CVA tenderness Back/Spine/Pelvis Back: no CVA tenderness Skin Rashes: no rashes Extrem General: No edema Results Reviewed Nephrology Results: Sodium, (135-145) 142 mmol/L 03/19/25 Potassium, (3.3-5.1) 3.3 mmol/L 03/19/25 Chloride, (96-108) 108 mmol/L 03/19/25 Carbon Dioxide, (22-29) 26 mmol/L 03/19/25 BUN, (9-16) 12 mg/dL 03/19/25 Creatinine, (0.5-1.4) 0.57 mg/dL 03/19/25 Calcium, (8.4-10.2) 8.6 mg/dL 03/19/25 Assessment & Plan Assessment & Plan (1) Hypokalemia: Code(s): E87.6 - Hypokalemia Category: Medical Plan Hypokalemia with serum alkalosis of unknown etiology No clear source of GI loss. potassium level is acceptable though remains on low end of normal with high dose potassium supplementation of potassium chloride 80meq PO daily. She will continue this daily supplementation and have potassium level re-checked today. Discussed this is a high dose of supplementation, and so will need to check her serum potassium regularly. Discussed she should be sure she is not taking any additional supplements other than what is prescribed to her, and should avoid diuretics- urine diuretic screening pending. plastma renin activity elevated at 6.13, aldosterone level normal 24, kiosrgsonah-tu-nnypj ratio is normal at 3.9- unlikely hyperaldosteronism given renin is not suppressed. Elevated plasma renin activity and elevated urine chloride may occur with diuretic abuse, though Gitelman syndrome is a possibility. Barter syndrome is unlikely given hypokalemia is new in adulthood. VBG pH showed alkalosis in hospital in February- pt declined ABG after two unsuccessful attempts at collection, so unable to evaluate definitively if alkalosis is metabolic or respiratory. Discussed with Dr Velasquez. Orders: Orders Basic Metabolic Panel Today E87.6 - Hypokalemia Basic Metabolic Panel 1 Month E87.6 - Hypokalemia Medications: Changed From potassium chloride ER (K-Tab) 40 mEq (2 x 20 mEq) PO BID 21 days 84 tabs 0RF E87.6 - Hypokalemia To potassium chloride ER (K-Tab) 40 mEq (2 x 20 mEq) PO BID 120 tabs 0RF 30 days E87.6 - Hypokalemia Coding Level of Care Code Est Pt Level 3 (60322) Diagnoses Hypokalemia E87.6
[2025-04-02 11:08] VITALS: BP 100/70; PULSE 71; O2SAT 97; BMI 28.7
--- OUTSIDE RECORDS SUMMARY | 2025-04-02 12:00 | XMS_ITS | Clinical Summary ---
Author Organization [facility] ity Address [address] [place] [address] Care Team Providers Care Risk Reduction Counselor Name Role Phone Unavailable Primary Care Provider [...]
--- OUTSIDE RECORDS SUMMARY | 2025-04-02 12:00 | XMS_ITS | Encounter Summary ---
Author Organization [employer] Address [address] [facility] [address] [place] [address] Care Team Providers Care Target Network Analyst Name Role Phone Sarah Bradley MD Primary Care Provide r Bruce Cruz RN Unavailable [phone] Veronica Preston Unavailable Reason for Visit * Reason Onset Date Comments Hospital Follow-up 03/10/2025 Encounter Details Date Type Department Care Team ([facility] st Contact Info) Description 03/10/2025 Telephone [facility]INE [address] [place], [place] [phone] Sarah Bradley MD [address] [place], [place] [phone] Hospital Follow-up Social History Tobacco Use Types [...] the past 12 months, has t he [employer], gas, oil or water company threatened to [...] encounter Miscellaneous Notes * Telephone Encounter - hSayy Fried - 03/10/2025 11:52 AM EDT Tc from pt requesting a HDF appt. Hospital: [facility] Date of admission: 02/23 Discharge date: 02/26 Diagnosed: gastritis *Send message to [place] Clinical Care Coordinators Contact pt at [phone] (lithuanian) documented in this encounter Plan of Treatment Not on file documented as of this encounter Visit Diagnoses Not on filedocumented in this encounter Additional Health Concerns Assessment Noted Time PHQ-9 Depression Total Score: 2 02/13/20 25 2:23 PM EDT documented as of this encounter Care Teams Target Network Analyst Relationship Specialty Start Date End Date Sarah Bradley MD [address] [place] [address] PCP - General Family Medicine 06/22/18 Bruce Cruz, MIQUEL [address] [place] [id number] Registered Nurse Family Medicine 01/15/25 Veronica Preston 01/15/25 Aisha Savage Wire Preparation Machine TenderOps Manager 04/11/24 documented as of this encounter
== END 2025-04-02 11:36 | disposition home or self-care (01) ==
LOC: HO.HKA 10:56
PROVIDERS: PCP Internal Medicine; Visit Provider Nurse Practitioner Family
DX: E87.6 Hypokalemia (principal)
CPT/HCPCS: 99213

== ENCOUNTER 2025-04-02 10:55 | Outpatient (REF) | payer MEDICAID, SELFPAY ==
[2025-04-02 13:13] LABS: Anion Gap 11 (12-20); Blood Urea Nitrogen 13 mg/dL (9-16); Calcium 8.7 mg/dL (8.4-10.2); Carbon Dioxide 25 mmol/L (22-29); Chloride 109 mmol/L (96-108); Estimated Glomerular Filt Rate > 60; Potassium 3.4 mmol/L (3.3-5.1); Sodium 142 mmol/L (135-145)
== END 2025-04-02 10:56 | disposition home or self-care (01) ==
LOC: HO.LAB 10:55
PROVIDERS: PCP Internal Medicine; Visit Provider Nurse Practitioner Family
DX: E87.6 Hypokalemia (principal); Z79.899 Other long term (current) drug therapy
CPT/HCPCS: 36415; 80048; 99212

== ENCOUNTER 2025-04-07 14:30 | Outpatient (AMB) | payer MEDICAID, SELFPAY ==
--- NOTE | 2025-04-07 14:32 | MHC.OFFVISWM ---
VS Expanded 04/07/25 14:40 BP 127/69 Blood Pressure Location Rt brachial Blood Pressure Position Sitting Pulse 68 Pulse Source Pulse Oximeter Temp 97.0 F Temperature Source Temporal Artery Scan Pulse Oximetry 99 Oxygen Delivery Method Room Air Height 4 ft 11 in Weight 140 lb 3.2 oz BMI 28.3 Body Fat % 32.2 Body Fat Mass 43.6 Fat Free Mass 96.4 Visceral Fat Rating 5.0 Body Water % 49.3 Body Water Mass 69.0 Muscle Mass/Score 91.4 Basal Metabolic Rate/Score 1,321 Intake Visit Reasons: OV PO LSG 01/14/25 Orthopedics Teacher Required: Yes Orthopedics Teacher Services: Orthopedics Teacher Present Orthopedics Teacher Name: #[id number] Allergies latex (LATEX) Allergy (Intermediate, Verified 04/07/25 14:41) HANDS SWELL Medication List - Last Reconciled 04/07/25 by CHARU Santizo docusate sodium (Colace) 100 mg PO BID levothyroxine 137 mcg PO DAILY@0600 pantoprazole 40 mg PO DAILY potassium chloride ER (K-Tab) 20 mEq PO BID 30 days spironolactone 25 mg PO .daily at bedtime 30 days HPI Comments Details: This?a?40?yo female who is s/p LSG without hiatal hernia repair on?01/14/2025. Presents for 3 month post op visit. Weight today is 140.2 pounds, with a BMI of 28.3. There has been a 47.6 pound weight loss,(initial weight 187.8 pounds) since starting the program on 09/20/2024 reflecting a 24.9 % total body weight loss and a weight loss of 27.4 pounds since surgery (operative weight 167.6 pounds) reflecting a 15.8 % TBWL since surgery. Reports infrequent but normal bowel movements every 2-3 days and uses stool softeners regularly. taking celebrate mvi Since last being seen in the office, she was seen by nephrology and will be following up with them for her hypokalemia. She has not been exercising, because she was dealing with personal issues with her mother, in [place], [place]. She has returned to her home now. SHe has just returned home 4 days ago. Present meal plan includes: celebrate rebuild 1/2 scoop at 8-10 celebrate bar 11-1 another bar 3-5 meal at 6 pm with 3 forks protein and 3 forks veg another shake 8-10 Drinking 50-60 oz water ? Exercise routine includes: walking outside, 2 days per day, 1 hr 45 min, joined [employer] 3 x per week, treadmill 300-400 PFSH Medical History BMI 37.0-37.9, adult Encounter for IUD removal Cervical cancer screening Prediabetes IUD check up Encounter for IUD insertion Left breast lump Well woman exam Family planning Hx of transfusion of packed red blood cells Migraine Seizures Non-insulin dependent type 2 diabetes mellitus Sleep apnea treated with continuous positive airway pressure (CPAP) Hypothyroidism Elevated cholesterol Obesity (BMI 30-39.9) Supraumbilical hernia HTN (hypertension) Anemia History of hypothyroidism Diastasis recti Depression Asthma GERD (gastroesophageal reflux disease) Surgical History S/P laparoscopic sleeve gastrectomy History of esophagogastroduodenoscopy (EGD) Hx of section History of umbilical hernia repair (05/13/19) Family History Father No problems noted. Mother HTN (hypertension) Asthma Hyperthyroidism Diabetes Paternal Aunt Breast cancer Son Asthma Son Asthma ADHD Son Asthma Daughter Autism Social History Household Members: Spouse Housing: Apartment Are you a primary child care sitter to a significant other at home: No Do you presently have visiting nurse or other home services: No Alcohol intake: former Comment: Patient gait and balance are steady. Patient Tobacco Use Status: Never used Tobacco service: No Sexual orientation: Straight/Heterosexual Gender identity: Female Female Reproductive History Menstrual Age of Menarche: 13 Physical Exam Vital Signs: Last Vital Signs Temp 97.0 F 04/07/25 14:40 Pulse 68 04/07/25 14:40 BP 127/69 04/07/25 14:40 Pulse Ox 99 04/07/25 14:40 Oxygen Delivery Method Room Air 04/07/25 14:40 BMI result Body Mass Index 28.3 Assessment & Plan Assessment & Plan (1) S/P laparoscopic sleeve gastrectomy: Code(s): Z98.84 - Bariatric surgery status Category: Surgical Plan: Patient has been following the meal plan however has not exercise in approximately a month. She was out of town caring for her mother. She has now returned home. She states that she is going to go to the [facility], utilizing the treadmill, 5 days per week. I explained to her that her goal would be to burn 400 calories per day, 5 days a week, although ideally 6 or 7 days a week as she has not been able to exercise over the last month. She states she will continue to do this and follow the meal plan. She will communicate with Dr. Caraballo. We will have her return to the office in approximately 2 months.
--- OUTSIDE RECORDS SUMMARY | 2025-04-07 14:34 | XMS_ITS | Clinical Summary ---
Author Organization [facility] ity Address [address] [place] [address] Care Team Providers Care Frame Table Operator Helper Name Role Phone Unavailable Primary Care Provider [...]
--- OUTSIDE RECORDS SUMMARY | 2025-04-07 14:34 | XMS_ITS | Encounter Summary ---
Author Organization [employer] Address [address] [facility] 7t [place] [address] Care Team Providers Care Manager Of Case Management Name Role Phone Sarah Bradley MD Primary Care Provide r Bruce Cruz RN Unavailable [phone] Veronica Preston Unavailable Reason for Visit * Reason Onset Date Comments Hospital Follow-up 03/10/2025 Encounter Details Date Type Department Care Team ([facility] st Contact Info) Description 03/10/2025 Telephone [facility] MEDICINE [address] [place], [place] [phone] Sarah rBadley MD [address] [place], [place] [phone] Hospital Follow-up Social History Tobacco Use Types [...] the past 12 months, has t he [employer], gas, oil or water company threatened to [...] from pt requesting a HDF appt. [place] [facility] [place]: [place]23 Discharge date: 02/26 Diagnosed: gastritis *Send message to [facility] Clinical Care Coordinators Contact pt at [phone] (swedish) documented in this encounter Plan of Treatment Not on file documented as of this encounter Visit Diagnoses Not on filedocumented in this encounter Additional Health Concerns Assessment Noted Time PHQ-9 Depression Total Score: 2 02/13/20 25 2:23 PM EDT documented as of this encounter Care Teams Manager Of Case Management Relationship Specialty Start Date End Date Sarah Bradley MD [address] [place] [address] PCP - General Family Medicine 06/22/18 Bruce Cruz, MIQUEL [address] [place] [address] Registered Nurse Family Medicine 01/15/25 Veronica Preston 01/15/25 Aisha Savage Satellite Installation TechnicianCluster Bore Operator 04/11/24 documented as of this encounter
[2025-04-07 14:40] VITALS: BP 127/69; PULSE 68; TEMP 36.1; O2SAT 99; BMI 28.3
== END 2025-04-07 15:12 | disposition home or self-care (01) ==
LOC: HO.HBS 14:31
PROVIDERS: PCP Internal Medicine; Visit Provider Physician Assistant Surgical
DX: Z98.84 Bariatric surgery status (principal)
CPT/HCPCS: 99024

== ENCOUNTER → 2025-04-07 14:30 | Outpatient (BNVA) | payer MEDICAID, SELFPAY | PROVIDERS: PCP Internal Medicine; Visit Provider Physician Assistant Surgical | DX: Z98.84 Bariatric surgery status (principal) | CPT/HCPCS: 99212 ==

== ENCOUNTER 2025-04-29 11:48 | Outpatient (REF) | payer MEDICAID, SELFPAY ==
--- OUTSIDE RECORDS SUMMARY | 2025-04-29 12:45 | XMS_ITS ---
Author Organization [employer] Address [address] [facility] 7 [place] [address] Care Team Providers Care Ophthalmic Dispenser Name Role Phone Sarah Bradley MD Primary Care Provide r Bruce Cruz RN Unavailable [phone] Veronica Preston Unavailable CM Complex Status:Enrolled (Active) Start date:01/15/2025 Enrollment date:02/12/2025 Enrollment reason:ADT Feed Overview ADT- [place] [facility] [place]. Case Team Name Relationship Phone Bruce Cruz RN(Responsible Staff) Registered Jus dao [phone] Continued Care and Services Coordination
--- OUTSIDE RECORDS SUMMARY | 2025-04-29 12:45 | XMS_ITS | Encounter Summary ---
Author Organization [email or web address] Address [address] [place] [address] 7t [place] [address] Care Team Providers Care Loading Rack Supervisor Name Role Phone Sarah Bradley MD Primary Care Provide r Bruce Cruz RN Unavailable [phone] Veronica Preston Unavailable Encounter Details Date Type Department Care Team (Late st Contact Info) Description 06/07/2023 Abstract [facility] [address] [place] [address] Sarah Bradley MD [address] [place] [address] Social History Tobacco Use Types Packs/Day Years [...] encounter Results * Colposcopy (12/29/2020) Historical Provider MD IN CLINIC/BEDSIDE ORDERAB LES Final Result * (ABNORMAL) Hm Pap Smear (12/03/2020) Pap Epithelial cell abnormality(A ) Negative for intraephithelial lesion or malignancy, Other Comment:ASCUS HPV Detected Historical Provider HEALTH MAINTENANCE Final Result documented in this encounter Visit Diagnoses Not on filedocumented in this encounter Additional Health Concerns Assessment Noted Time PHQ-9 Depression Total Score: 0 01/18/20 23 10:22 AM EDT documented as of this encounter Care Teams Loading Rack Supervisor Relationship Specialty Start Date End Date Sarah Bradley MD [address] [place] [address] PCP - General Family Medicine 06/22/18 Bruce Cruz, RN [address] [place] [address] Registered Nurse Family Medicine 01/15/25 Veronica Preston 01/15/25 Aisha Savage Mechanic'S AssistantBrake Specialist 04/11/24 documented as of this encounter
--- OUTSIDE RECORDS SUMMARY | 2025-04-29 12:45 | XMS_ITS ---
Author Organization [employer] Address [address] [place] [address] 7 [place] [address] Care Team Providers Care Taxi Driver Name Role Phone Sarah Bradley MD Primary Care Provide r Bruce Cruz RN Unavailable [phone] Veronica Preston Unavailable CHW Complex Status:Enrolled (Active) Start date:01/15/2025 Enrollment date:03/12/2025 Enrollment reason:ADT Feed Overview ADT- [place] [facility] [place]. Case Team Name Relationship Phone Veronica Preston(Responsible Staff) [phone] Continued Care and Services Coordination
--- OUTSIDE RECORDS SUMMARY | 2025-04-29 12:45 | XMS_ITS | Encounter Summary ---
Author Organization [employer] Address [address] [facility] 7t [place] [address] Care Team Providers Care Glass Installer Technician Name Role Phone Sarah Bradley MD Primary Care Provide r Bruce Cruz RN Unavailable [phone] Veronica Preston Unavailable Encounter Details Date Type Department Care Team (Late st Contact Info) Description 01/27/2023 Abstract [facility] MEDICINE [address] [place] [address] Sarah Bradley MD [address] [place] [address] Social History Tobacco Use Types Packs/Day Years [...] documented as of this encounter Care Teams Glass Installer Technician Relationship Specialty Start Date End Date Sarah Bradley MD [address] [place] [address] PCP - General Family Medicine 06/22/18 Bruce Cruz, MIQUEL [address] [place] [address] Registered Nurse Family Medicine 01/15/25 Veronica Preston 01/15/25 Aisha Savage Budget ManagerTax Analyst 04/11/24 documented as of this encounter
--- OUTSIDE RECORDS SUMMARY | 2025-04-29 12:45 | XMS_ITS | Encounter Summary ---
Author Organization [employer] Address [address] [facility] [address] 7t [place] [address] Care Team Providers Care Recreation Program Specialist Name Role Phone Sarah Bradley MD Primary Care Provide r Bruce Cruz RN Unavailable [phone] Veronica Preston Unavailable Encounter Details Date Type Department Care Team ([facility] st Contact Info) Description 07/26/2024 Telephone [facility] MEDICINE [address] [place] [address] Sarah Bradley MD [address] [place], [place] [phone] Social History Tobacco Use Types Packs/Day Years [...] documented as of this encounter Care Teams Recreation Program Specialist Relationship Specialty Start Date End Date Sarah Bradley MD [address] [place] [address] PCP - General Family Medicine 06/22/18 Bruce Cruz, RN [address] [place] [address] Registered Nurse Family Medicine 01/15/25 Veronica Preston 01/15/25 Aisha Savage Patcher HelperGeospatial Technician 04/11/24 documented as of this encounter
--- OUTSIDE RECORDS SUMMARY | 2025-04-29 12:45 | XMS_ITS | Encounter Summary ---
Author Organization [employer] Address [address] [place] [address] 7 [place] [address] Care Team Providers Care Medical Lead Name Role Phone Sarah Bradley MD Primary Care Provide r Bruce Cruz RN Unavailable [phone] Veronica Preston Unavailable Encounter Details Date Type Department Care Team (Latest Contact Info) Description 12/15/2020 Abstract [facility] Dental, Provider, DDS Social History [...] on filedocumented in this encounter Care Teams Medical Lead Relationship Specialty Start Date End Date Sarah Bradley MD [address] [place] [address] PCP - General Family Medicine 06/22/18 Bruce Cruz, RN [address] [place] [address] Registered Nurse Family Medicine 01/15/25 Veronica Preston 01/15/25 Aisha Savage Desk AssistantPlastic Bubble Packer 04/11/24 documented as of this encounter
--- OUTSIDE RECORDS SUMMARY | 2025-04-29 12:45 | XMS_ITS | Encounter Summary ---
Author Organization [employer] Address [address] [facility] [address] 7t [place] [address] Care Team Providers Care Eye Clinic Manager Name Role Phone Sarah Bradley MD Primary Care Provide r Bruce Cruz RN Unavailable [phone] Veronica Preston Unavailable Encounter Details Date Type Department Care Team (Late st Contact Info) Description 03/22/2023 Orders Only [facility] MEDICINE [address] [place] [address] Provider, MD Yessi Social History Tobacco Use [...] documented as of this encounter Care Teams Eye Clinic Manager Relationship Specialty Start Date End Date Sarah Bradley MD [address] [place] [address] PCP - General Family Medicine 06/22/18 Bruce Cruz, MIQUEL [address] [place] [address] Registered Nurse Family Medicine 01/15/25 Veronica Preston 01/15/25 Aisha Savage Painter Touch UpSuperintendent Sales 04/11/24 documented as of this encounter
--- OUTSIDE RECORDS SUMMARY | 2025-04-29 12:45 | XMS_ITS | Encounter Summary ---
Author Organization [employer] Address [address] [facility] 7t [place] [address] Care Team Providers Care Chemic Mangler Name Role Phone Sarah Bradley MD Primary Care Provide r Bruce Cruz RN Unavailable [phone] Veronica Preston Unavailable Reason for Visit * Reason Onset Date Comments Hospital Follow-up 03/10/2025 Encounter Details Date Type Department Care Team ([facility] st Contact Info) Description 03/10/2025 Telephone [facility] MEDICINE [address] [place], [place] [phone] Sarah Bradley MD 230 [place], [place] [phone] Hospital Follow-up Social History Tobacco Use Types [...] the past 12 months, has t he [employer], gas, oil or water company threatened to [...] pt requesting a HDF appt. [place] [facility] [place]: 02[place]23 Discharge date: 02/26 Diagnosed: gastritis *Send message to [facility] Clinical Care Coordinators Contact pt at [phone] (slovenian) documented in this encounter Plan of Treatment Not on file documented as of this encounter Visit Diagnoses Not on filedocumented in this encounter Additional Health Concerns Assessment Noted Time PHQ-9 Depression Total Score: 2 02/13/20 25 2:23 PM EDT documented as of this encounter Care Teams Chemic Mangler Relationship Specialty Start Date End Date Sarah Bradley MD [address] [place] [address] PCP - General Family Medicine 06/22/18 Bruce Cruz, MIQUEL [address] [place] [address] Registered Nurse Family Medicine 01/15/25 Veronica Preston 01/15/25 Aisha Savage Precision Jig GrinderGrout Machine Operator 04/11/24 documented as of this encounter
--- OUTSIDE RECORDS SUMMARY | 2025-04-29 12:45 | XMS_ITS | Encounter Summary ---
Author Organization [employer] Address [address] [facility] [address] [place] [address] Care Team Providers Care Head Esthetician Name Role Phone Sarah Bradley MD Primary Care Provide r Bruce Cruz RN Unavailable [phone] Veronica Preston Unavailable Reason for Visit * Reason Onset Date Comments PT1 03/22/2024 Encounter Details Date Type Department Care Team ([facility] st Contact Info) Description 03/22/2024 Telephone [facility] MEDICINE 230 [place], [place] [phone] Sarah Bradley MD [address] [place], [place] [phone] PT1 Social History Tobacco Use Types Packs/Day [...] Yes Provider name or facility name: [facility] Facility Address: [address] [place] [address] Escort needed: Y/N: No Do you have [...] documented as of this encounter Care Teams Head Esthetician Relationship Specialty Start Date End Date Sarah Bradley MD [address] [place] [address] PCP - General Family Medicine 06/22/18 Bruce Cruz RN [address] [place] [address] Registered Nurse Family Medicine 01/15/25 Veronica Preston 01/15/25 Aisha Savage Cleat MakerPercolator Operator 04/11/24 documented as of this encounter
--- OUTSIDE RECORDS SUMMARY | 2025-04-29 12:45 | XMS_ITS | Clinical Summary ---
Author Organization [employer] Address [address] [facility] [address] [place] [address] Care Team Providers Care Youth Associate Name Role Phone Sarah Bradley MD Primary Care Provide r Bruce Cruz RN Unavailable [phone] Veronica Preston Unavailable Allergies Active Allergy Reactions Criticality Noted Date Comments Latex 09/01/2022 Medications docusate sodium (Colace) 100 MG capsule Take 1 capsule by mouth if needed in the morning and at bedtime for constipation. 07/31/20 22 Active levothyroxine (Synthroid) 137 MCG tabletIndications: Acquired hypothyroidism Take 137 mcg by mouth before breakfast. 90 tablet 3 08/13/20 24 025 Active pantoprazole (ProtoNix) 40 MG EC tablet Take 1 tablet by mouth before breakfast. Do not crush, chew, or split. Active sucralfate (Carafate) 1 GM/10ML suspension Take 10 mL by mouth in the morning and 10 mL in the evening. Active albuterol (Ventolin HFA) 108 (90 Base) MCG/ACT inhalerIndications :Uncomplicated asthma, unspecified asthma severity, unspecified whether persistent inhale 2 puff by inhalation route every 4 - 6 hours as needed 18 g 3 03/25/20 25 Active betamethasone, augmented, (Diprolene AF) 0.05 % creamIndications:A llergic contact dermatitis due to other agents Apply topically 2 times daily. 15 g 2 03/25/20 25 Active potassium chloride CR (K-Tab) 20 MEQ ER tablet Take 1 tablet by mouth 2 times daily. 03/20/20 25 025 Active Problems Problem Noted Date Diagnosed Date Hypokalemia 03/25/2025 Assessment & Plan (03/25/2025 2:23 PM EDT): Continue with potassium supplementation as prescribed by specialist Last potassium that was checked was normal Status post bariatric surgery 03/25/2025 Assessment & Plan (03/25/2025 2:23 PM EDT): Continue to follow-up with specialist PCOS (polycystic ovarian syndrome) 05/21/2024 H/O gestational [...] sin gle episode, without psychotic features 09/01/2022 Assessment & Plan (03/25/2025 2:24 PM EDT): Significant improvement, patient is stable now we will continue to monitor Severe obesity 09/01/2022 Allergic rhinitis 08/01/2012 Dyslipidemia 08/01/2012 Verruca plantaris 08/01/2012 Encounters Date Type Department Care Team Description 04/25/2025 Patient Outreach [facility] PED[facility] [address] [place] [address] Sarah Bradley MD 04/10/2025 Patient Outreach [facility] PEDS [address] [place] [address] Sarah Bradley MD Care Coordination (C3/CM F/U) 2025 Patient Outreach [facility] MEDICINE [address] [place] [phone] Sarah Bradley MD Care Management (C3CM- F/U call # 1) 03/26/2025 Patient Outreach [facility] MED [facility] PED[facility] [address] [place] [address] Sarah Bradley MD Care Coordination (C3/CM F/U) 03/25/2025 1:15 PM EDT Office Visit [facility] [address] [place] [phone] Sarah Bradley MD 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 (Primary Dx); Prediabetes; Severe major depression, single episode, without psychotic features (CMS/HCC); Uncomplicated asthma, unspecified asthma severity, unspecified whether persistent; Hypokalemia; Status post bariatric surgery 03/25/2025 Travel 03/24/2025 Orders Only GENERIC EXTERNAL DATA DEPARTMENT Provider, Generic External Data 03/24/[address] [address] Sarah Bradley MD Chart Prep 03/19/2025 Orders Only GENERIC EXTERNAL DATA DEPARTMENT Provider, Generic External Data 03/12/2025 Patient Outreach [facility] MED [facility] PEDS [address] [place] [address] Sarah Bradley MD 03/10/2025 Orders Only GENERIC EXTERNAL DATA DEPARTMENT Provider, Generic External Data 03/10/2025 Patient Outreach [address] [address] Sarah Bradley MD Transition Of Care (Tcm) (HDF scheduled and SDOH screening completed on 12/20/24 ) 03/10/[address] [address] Sarah Bradley MD Hospital Follow-up 03/06/2025 Orders Only GENERIC EXTERNAL DATA DEPARTMENT Provider, Generic External Data 03/03/2025 Patient Outreach [address] [address] Sarah Bradley MD Care Management (C3CM- F/U call # 1/LVM) 02/28/2025 11:30 AM EDT Office Visit [facility] OPTOMETRY [address] [place] [phone] Nehemias, Katy, OD Myopia of both eyes (Primary Dx) 02/23/2025 Orders Only GENERIC EXTERNAL DATA DEPARTMENT Provider, Generic External Data 02/17/2025 Plan of Care Documentation [address] [address] 02/12/2025 Patient Outreach [address] [address] Sarah Bradley MD Care Management (C3CM- Initial assessment/enrollme nt) 02/11/2025 Patient Outreach [facility] MED & PEDS [address] [place] [address] Sarah Bradley MD Care Coordination (C3/CM Appt reminder) 01/30/2025 Patient Outreach [facility] [address] [place] [address] Sarah Bradley MD 01/29/2025 10:30 AM EDT Office Visit [facility] OPTOMETRY [address] [place] [address] Katy Del Cid, OD White without pressure of peripheral retina of right eye (Primary Dx); Venous engorgement of both eyes; Chorioretinal scar, left; Myopia of both eyes 01/29/2025 Travel from Last 3 Months Immunizations Immunization Administration [...] the past 12 months, has t he [employer], gas, oil or water company threatened to [...] Sign Reading Time Taken Comments Blood Pressure 116/82 03/25/2025 1:28 PM EDT Pulse 80 03/25/2025 1:28 PM EDT Temperature 36.7 C (98 F) 03/25/2025 1:28 PM EDT Respiratory Rate 18 03/25/2025 1:28 PM EDT Oxygen Saturation 96% 03/25/2025 1:28 PM EDT Inhaled Oxygen Concentration - - Weight 65.6 kg (144 lb 9.6 oz) 03/25/2025 1:28 P M EDT Height 149.9 cm (4' 11 ) 03/25/2025 1:28 PM EDT Body Mass Index 29.21 03/25/2025 1:28 PM EDT Plan of Treatment Health Maintenance Due Date Last Done Comments Family Planning (PISQ) 2002 HPV Vaccines (1 - 3-dose series) 2002 Hepatitis A Vaccines (1 of 2 - Risk 2-dose series) 2006 Hepatitis B Vaccines (1 of 3 - 19+ 3-dose series) 2006 Pneumococcal Vaccine: Pediatrics (0 to 5 Years) and At-Risk Patients (6 to 49) Years (1 of 2 - PCV) 2006 Dental Prophylaxis 06/17/2021 12/15/2020, 10/31/2012 Dental Oral Exam 09/02/2023 03/02/2023, , 11/27/2020 Dental X-Ray: Full Mouth 11/29/2023 11/27/2020, 11/0 02/2008 Dental X-Ray: Bitewings 03/03/2024 03/02/20 23, 02/09/2023, 11/27/2020, Additional history exists COVID-19 Vaccine ( season) 2024 08/24/2021 Influenza Vaccine (#1) 2025 , 11/12/2019, 06/22/2018, Additional history exists SDOH Screening 12/20/2025 12/20/2024 Depression Screening 02/12/2026 02/12/2025, 02/13/20 Alcohol/Substance Use Screening 02/17/2026 02/17/2025 Cervical Cancer Screening 02/21/2026 HPV/Cotest 02/21/2026 12/08/2021, 04/0 02/2022, 12/03/2020, Additional history exists Pap Smear 02/21/2026 02/21/2023, 02/03, 12/09/2021, Additional history exists Diabetes: Hemoglobin A1C 03/25/2026 025, 09/30/2024, 01/20/2023, Additional history exists Disability Screening 03/25/2026 03/25/2025 Tobacco Screening 03/25/2026 03/25/2025 Lipid Panel 09/30/2029 09/30/2024, 0505/2023, 09/01/2020 DTaP/Tdap/Td [...] Procedure Name Priority Date/Time Associated Diagnosis Comments POCT GLYCATED HEMOGLOBIN, TOTAL Routine 03/25/2025 1:35 PM EDT Prediabetes POCT GLUCOSE Routine 03/25/2025 1:34 PM EDT Prediabetes OTHER REF TEST - MISC Routine 03/24/2025 9:21 AM EDT BASIC METABOLIC PANEL Routine 03/19/2025 10:02 AM EDT ALDOSTERONE/PLASMA RENIN ACTIVITY RATIO, LC/MS/MS Routine 03/10/2025 10:24 AM EDT BASIC METABOLIC PANEL Routine 03/10/2025 10:24 AM EDT BASIC METABOLIC PANEL Routine 03/06/2025 10:49 AM EDT OSMOLALITY (SERUM) Routine 03/06/2025 10 :[address] ABDOMEN PELVIS W CONTRAST Routine 02/23/2025 8:18 PM EDT URINALYSIS, COMPLETE, WITH REFLEX TO CULTURE Routine 02/23/2025 5:42 PM EDT CBC WITH AUTO DIFFERENTIAL Routine 02/23/2025 5:26 PM EDT MAGNESIUM Routine 02/23/2025 5:26 PM EDT HCG, TOTAL, QN Routine 02/23/2025 5:26 PM EDT LIPASE Routine 02/23/2025 5:26 PM EDT COMPREHENSIVE METABOLIC PANEL Routine 02/23/2025 5:26 PM EDT FUNDUS PHOTOS - OU - BOTH EYES Routine 01/29/2025 10:30 AM EDT Venous engorgement of both eyes LIPID PANEL, STANDARD Routine 09/30/2024 9:07 AM [...] Recently Relevant to Health Maintenance Results * POCT HGB A1C (03/25/2025 1:35 PM EDT) Hemoglobin A1C 5.0 4.0 - 5.7 % QC Media Lot # [id number] Lot# Expiration Date [id number] Blood 03/25/2025 1:35 PM EDT us Sarah Galdamez MD POINT OF CARE TEST EN TER/EDIT ORDERABLES Final Result * POCT Glucose (03/25/2025 1:34 PM EDT) Glucose Blood, POC 82 60 - 200 mg/dL QC Media Lot # [id number] Lot# Expiration Date ,[id number] Blood Capillary blood specimen / Unknown 03/25/2025 1:34 PM EDT us Sarah Galdamez MD POINT OF CARE TEST EN TER/EDIT ORDERABLES Final Result * Other Reference Test - Misc (03/24/2025 9:21 AM EDT) 03/24/2025 9:21 AM EDT 03/24/2025 10:08 AM EDT Narrative [facility] - 04/04/2025 2:05 PM EDT Urine diuretic screening CODE 72510 us Generic External Data Provider LAB BLOOD ORDERAB LES Final Result [facility] [address] [place] [phone] * (ABNORMAL) Basic Metabolic Panel (03/19/2025 10:02 AM EDT) Only the most recent of3 resultswithin the time period is included. Sodium 142 135 - 145 mmol/L [facility] Potassium 3.3 3.3 - 5.1 mmol/L [facility] Chloride 108 96 - 108 mmol/L [facility] Carbon Dioxide 26 22 - 29 mmol/L [facility] Anion Gap 11(L) 12 - 20 [facility] Urea Nitrogen (BUN) 12 9 - 16 mg/dL [facility] Creatinine, Serum 0.57 0.5 - 1.4 mg/dL [facility] Estimated Glomerular Filt Rate >60 [facility] Comment:Chronic Kidney Disea se: Estimated GFR < 60 mL/min/1.75m3Gbhoym Kidney Disease: Estimated GFR < 15 mL/min/1.73m2 Glucose 94 60 - 115 mg/dL [facility] Calcium 8.6 8.4 - 10.2 mg/dL [facility] 03/19/2025 10:0 2 AM EDT 03/19/2025 10:02 AM EDT us Generic External Data Provider LAB BLOOD ORDERAB LES Final Result [facility] [address] [place] [address] [phone] * (ABNORMAL) Aldosterone/Plasma Renin Activity Ratio, LC/MS/MS (03/10/2025 10:24 AM EDT) Aldosterone 24 see note ng/dL [facility] Comment:Unable to flag abnor mal result(s), please refer to reference range(s) below:Adult Reference Ranges for Aldosterone, LC/MS/MS: Upright 8:00 - 10:00 am < or = 28 ng/dL Upright 4:00 - 6:00 pm < or = 21 ng/dL Supine 8:00 - 10:00 am 3 - 16 ng/dLTHIS TEST WAS PERFORMED AT:[facility] [id number] [place] [phone] RAYMOND MD,PHD Plasma Renin Activity 6.13(A) 0.25 - 5.82 ng/mL/h [facility] Aldosterone/Renin Ratio 3.9 0.9 - 28.9 Ratio [facility] Comment:This test was demetra morgan and its analytical performancecharacteristics have been determined by [employer] [place], [place]. It hasnot been cleared or approved by the U.S. Food and DrugAdministration. This assay has been validated pursuantto the CLIA regulations and is used for clinicalpurposes.THIS TEST WAS PERFORMED AT:[facility] [id number] [place] [phone] RAYMOND MD,PHD 03/10/2025 10:2 4 AM EDT 03/10/2025 10:24 AM EDT us Generic External Data Provider LAB BLOOD ORDERAB LES Final Result Performing Organization Address [facility] Co de Phone Number [facility] [address] [place] [phone] * Osmolality, Serum (03/06/2025 10:49 AM EDT) Osmolality (Serum) 294 281 - 305 mosm/kg [facility] 03/06/2025 10:4 9 AM EDT 03/06/2025 10:49 AM EDT us Generic External Data Provider LAB BLOOD ORDERAB LES Final Result Performing Organization Address [facility] de Phone Number [facility] [address] [place] [phone] * CT Abdomen Pelvis w/ Contrast (02/23/2025 8:18 PM EDT) Anatomical Region Laterality Modality Body, Pelvis, Abdomen Computed T omography 02/23/2025 8:18 PM EDT Narrative 02/23/2025 8:19 PM EDT [address] [address] [address] Scan Report Signed Patient: Sarah Sheikh I MR#: [id number] : 1985 Acct:[id number] Age/Sex: 39 / F ADM Date: 02/23/25 Loc: .ED Attending Dr: Ordering Physician: Brie Samayoa Date of Service: 02/23/25 Procedure(s): CT abdomen pelvis w IV con Accession Number(s): [id number] cc: Sarah Bradley MD; Brie Samayoa Report Number: [id number]: Total DLP = 462.00 mGy-cm CLINICAL HISTORY: abd pain, s p gastric bypass CT abdomen and pelvis with contrast Comparison: CT/UT/SR - CT ABDOMEN PELVIS WO IV CON - 08/05/24 08:02 EST Findings: No consolidation or effusion. Liver is normal in size. There is mild fatty infiltration. The spleen, gallbladder, pancreas, adrenal glands and kidneys are unremarkable. No bowel obstruction, pneumoperitoneum, or pneumatosis. There has been what appears to be a gastric sleeve surgery previously. Uterus and adnexa are unremarkable. Normal appendix. No acute fracture. IMPRESSION: No acute findings. Fatty infiltration of the liver. This document has been electronically signed by: Marbin Florian MD on 02/23/2025 20:18:21 Dictated By: Marbin Florian MD Signed By: <Electronically signed by Marbin Florian MD in OV> 02/23/252018 DD/ 17 TD/TT: 02/23/252017 Human Anatomy Teacher: Procedure Note Donotuseinterpreter, Image - 02/23/[address] [place] [address] [address] Scan Report Signed Patient: Sarah Sheikh IMR#: [id number] : 1985Acct:[id number] Age/Sex: 39 / FADM Date: 02/23/25 Loc: .ED Attending Dr: Ordering Physician: Brie Samayoa Date of Service: 02/23/25 Procedure(s): CT abdomen pelvis w IV con Accession Number(s): [id number] cc: Sarah Bradley MD; Brie Samayoa Report Number: [id number]: Total DLP = 462.00 mGy-cm CLINICAL HISTORY: abd pain, s p gastric bypass CT abdomen and pelvis with contrast Comparison: CT/UT/SR - CT ABDOMEN PELVIS WO IV CON - 08/05/24 08:02 EST Findings: No consolidation or effusion. Liver is normal in size. There is mild fatty infiltration. The spleen, gallbladder, pancreas, adrenal glands and kidneys are unremarkable. No bowel obstruction, pneumoperitoneum, or pneumatosis. There has been what appears to be a gastric sleeve surgery previously. Uterus and adnexa are unremarkable. Normal appendix. No acute fracture. IMPRESSION: No acute findings. Fatty infiltration of the liver. This document has been electronically signed by: Marbin Florian MD on 02/23/2025 20:18:21 Dictated By: Marbin Florian MD Signed By: <Electronically signed by Marbin Florian MD in OV> 02/23/252018 DD/ 17 TD/TT: 02/23/252017 Human Anatomy Teacher: [facility] External Provider IMG CT PROCEDURES Edited Result - Final * (ABNORMAL) Urinalysis, Complete, with Reflex to Culture (02/23/2025 5:42 PM EDT) Color Urine Dark Yellow [facility] Appearance Urine Turbid [facility] PH 6.5 5.0 - 9.0 [facility] Glucose Urine UA Negative Negative mg/dL [facility] Urine Blood Negative Negative [facility] Specific [place] - Urine >=1.030(H) 1.005 - 1.025 [facility] Urine Protein 100 (2+)(A) Neg-Trace mg/dL [facility] Urine Ketones >=160 Negative mg/dL [facility] Nitrite Urine Negative Negative [facility] Leukocyte Esterase Urine Trace(A) Negative [facility] RBC Urine 3-5(A) 0 - 2 /HPF [facility] Urine WBC 6-10(A) 0 - 5 /HPF [facility] Urine Squamous Epithelial Cell >20 0 - 2 /HPF [facility] Other Crystals Urine Present [facility] Urine Bacteria 3+ None Seen [facility] Hyaline Casts, Urine 3-5 0 - 2 /LPF [facility] 02/23/2025 5:42 PM EDT 02/23/2025 5:52 PM EDT Narrative [facility] - 02/23/2025 6:15 PM EDT Urine, Clean Catch Generic External Data Provider LAB URINE ORDERAB LES Final Result [facility] [address] [place], [place] [phone] * (ABNORMAL) CBC auto differential (02/23/2025 5:26 PM EDT) White Blood Count 5.4 4.8 - 10.8 X10*3/uL [facility] Red Blood Count 4.88 4.20 - 5.50 X10*6/uL [facility] Hemoglobin 13.3 12.0 - 16.0 g/dl [facility] Hematocrit 39.2 37.0 - 47.0 % [facility] Mean Corpuscular Volume 80.3 80.0 - 98.0 fL [facility] Mean Corpuscular Hemoglobin 27.3 27.0 - 33.0 pg [facility] Mean Corpuscular HGB Conc 33.9 31.0 - 35.0 g/dl [facility] Red Cell Distribution Width 18.1(H) 11.0 - 16.0 % [facility] Platelet Count 182 160 - 400 X10*3/uL [facility] Mean Platelet Volume 12.0 9.4 - 12.3 fL [facility] Neutrophils Percent Auto 60.2 45 - 73 % [facility] Imm Gran Pct Auto 0.4 0.0 - 0.4 % [facility] Lymphocytes Percent Auto 26.6 20 - 40 % [facility] Monocytes Percent Auto 9.8 2 - 11 % [facility] Eosinophils Percent Auto 2.4 0 - 4 % [facility] Basophils Percent Auto 0.6 0 - 2 % [facility] NRBC Pct Auto 0.0 0.0 - 0.2 /100WBC [facility] Neutrophils Absolute Auto 3.3 2.0 - 8.3 x10*3/uL [facility] Imm Gran Abs Auto 0.02 0.00 - 0.03 X10*3/uL [facility] Lymphocytes Absolute Auto 1.4 1.2 - 4.9 X10*3/uL [facility] Monocytes Absolute Auto 0.5 0.1 - 1.2 X10*3/uL [facility] Eosinophils Absolute Auto 0.1 0.0 - 0.4 X10*3/uL [facility] Basophils Absolute Auto 0.0 0.0 - 0.2 X10*3/uL [facility] NRBC Abs Auto 0.000 0.0 - 0.012 X10*3/uL [facility] 02/23/2025 5:26 PM EDT 02/23/2025 5:31 PM EDT us Generic External Data Provider LAB BLOOD ORDERAB LES Final Result Performing Organization Address [facility] Co de Phone Number [facility] [address] [place] [phone] * hCG, Total, Quantitative (02/23/2025 5:26 PM EDT) HCG Quantitative <2 mIU/mL [facility] Comment:Weeks post LMP Appro ximate hCG(Last Menstrual Period) Range (mIU/ml)3 - 4 weeks 9 - 1304 - 5 weeks 75 - 2,6005 - 6 weeks 850 - 20,8006 - 7 weeks 4000 - 100,2007 - 12 weeks 11,500 - 289,84647 - 16 weeks 18,300 - 137,12520 - 29 weeks (2nd trimester) 1,400 - 53,22918 - 41 weeks (3rd trimester) 940 - 60,000The Urena B- hCG assay is used for the early detection ofpregnancy; it cannot be used to diagnose any conditionunrelated to . If a B-hCG level is not supportedby the clinical evidence, results should be confirmed by analternative method (qualitative urine hCG, for example). 02/23/2025 5:26 PM EDT 02/23/2025 5:31 PM EDT us Generic External Data Provider LAB BLOOD ORDERAB LES Final Result Performing Organization Address [facility]/ZIP Co de Phone Number [facility] [address] [place] [phone] * Magnesium (02/23/2025 5:26 PM EDT) Pathologist [facility] Magnesium 1.8 1.6 - 2.6 mg/dL [facility] 02/23/2025 5:26 PM EDT 02/23/2025 5:31 PM EDT Generic External Data Provider LAB BLOOD ORDERAB LES Final Result Performing Organization Address [facility]/ZIP Co de Phone Number [facility] [address] [place] [phone] * (ABNORMAL) Lipase (02/23/2025 5:26 PM EDT) [facility] Lipase 116(H) 8 - 78 U/L [facility] 02/23/2025 5:26 PM EDT 02/23/2025 5:31 PM EDT Generic External Data Provider LAB BLOOD ORDERAB LES Final Result Performing Organization Address [facility] Co de Phone Number [facility] [address] [place] [phone] * (ABNORMAL) Comprehensive Metabolic Panel (02/23/2025 5:26 PM EDT) [facility] Sodium 142 135 - 145 mmol/L [facility] Potassium 2.6(LL) 3.3 - 5.1 mmol/L [facility] Comment:Critical value for t est(s): POTS Results called to and readback by: [facility] Person calling: [id number] Date: 02/23/25Time:1759 Chloride 106 96 - 108 mmol/L [facility] Carbon Dioxide 20(L) 22 - 29 mmol/L [facility] Anion Gap 19 12 - 20 [facility] Urea Nitrogen (BUN) 10 9 - 16 mg/dL [facility] Creatinine, Serum 0.64 0.5 - 1.4 mg/dL [facility] Creatinine Clr Calc Pharmacy 98.9 [facility] Comment:Provided height and weight: 149.86 cm,65.317 kg.eGFR (calculated from the MDRD study equation) and eCrCl(calculated from the Cockcroft-Gault equation) are based ondifferent parameters and may not yield comparable results.If eCrCl result is absurd, please check patient'sheight/weight. Estimated Glomerular Filt Rate >60 [facility] Comment:Chronic Kidney Disea se: Estimated GFR < 60 mL/min/1.03o2Nkpexy Kidney Disease: Estimated GFR < 15 mL/min/1.73m2 Glucose 102 60 - 115 mg/dL [facility] Calcium 9.4 8.4 - 10.2 mg/dL [facility] Bilirubin, Total 0.5 0.0 - 1.0 mg/dL [facility] Aspartate Amino Transferase 17 5 - 31 U/L [facility] Alanine Aminotransferase 14 0 - 31 U/L [facility] Total Protein 7.9 6.5 - 8.0 g/dL [facility] Albumin Level 4.6 3.5 - 5.0 g/dL [facility] Alkaline Phosphatase 64 39 - 117 U/L [facility] 02/23/2025 5:26 PM EDT 02/23/2025 5:31 PM EDT us Generic External Data Provider LAB BLOOD ORDERAB LES Final Result [facility] [address] [place] [phone] * Fundus Photos - OU - Both Eyes (01/29/2025 10:30 AM EDT) Narrative Katy Del Cid, OD - 02/11/2025 4:27 PM EDT Images from the original result were not included. Right Eye Progression has no prior data. Disc findings include normal observations (0.1/0.1). Macula findings include normal observations. Vessel findings include (Early AV nicking, venous engorgement). Periphery findings include normal observations. Left Eye Progression has no prior data. Disc findings include normal observations (0.1/0.1). Macula findings include normal observations. Vessel findings include (Early AV nicking, venous engorgement). Periphery findings include normal observations. Notes Assessment and Plan: Early hypertensive changes in both eyes. Will monitor at her next exam. us Katy Del Cid OD OPHTH PHOTOGRAPHY Final Resul t * (ABNORMAL) Lipid Panel, Standard (09/30/2024 9:07 AM EST) Triglycerides 150(H) <150 mg/dL [facility] Comment:Desirable Triglyceri de: less than 150 mg/dLBorderline High Triglyceride 150-199 mg/dLHigh Triglyceride: 200-499 mg/dLVery High Triglyceride: greater than or equal to 5OO mg/dL Cholesterol 170 <200 mg/dL [facility] Comment:Desirable Cholestero l: less than 200 mg/dLBorderline High Cholesterol: 200-239 mg/dLHigh Cholesterol: greater than 239 mg/dL LDL Cholesterol Calculated 101(H) <100 mg/dL [facility] Comment:Desirable LDL: less than 100 mg/dLNear Optimal/Above Optimal LDL: 110- 129 mg/dLBorderline High LDL: 130-159 mg/dLHigh LDL: 160-189 mg/dLVery High LDL: greater than or equal to 190 mg/dL HDL Cholesterol 39(L) >40 mg/dL [facility] Comment:Desirable HDL: great er than 40 mg/dL Note: This HDL assay may give artificially low results in patients with liver disease. 09/30/2024 9:07 AM EST 09/30/2024 9:07 AM EST us Generic External Data Provider LAB BLOOD ORDERAB LES Final Result [facility] [address] [place] [phone] * Hm Pap Smear (02/21/2023) Historical Provider HEALTH MAINTENANCE Final Result * HPV E6/E7 RFLX CLAIRE 16 18/45 (12/08/2021 10:43 AM EDT) Pathologist [facility] HPV mRNA E6/E7 rflx Not Detected Not Detected [facility] Comment: Methodology: [employer]-Mediated Amplification This assay detects E6/E7 viral messenger RNA (mRNA) from 14 high-risk HPV types (16,18,31,33,35,39,45,51,52,56,58,59,66,68). The analytical performance characteristics of this assay have been determined by [employer]. The modifications have not been cleared or approved by the FDA. This assay has been validated pursuant to the CLIA regulations and is used for clinical purposes. For additional information, please refer to http://education.Altierre/faq/KQA275a9 (This link if provided for information/ educational purposes only.) THIS TEST WAS PERFORMED AT: [facility] [address] [place] [address],[place] [address] KLAUS BRASHER MD 12/08/2021 10:4 3 AM EDT Laine Zamora HISTORICAL/NON ORDERABLE LABS Fi nal Result Performing Organization Address [facility] Phone Number [facility] [place] [address], * HEPATITIS C ANTIBODY (11/16/2019 10:03 AM EDT) [facility] HEPATITIS C ANTIBODY NONREACTIVE [facility] Comment: Antibodies to HCV not detected; does not exclude early acute HCV infection. 11/16/2019 10:0 3 AM EDT Lainecharly Zamora HISTORICAL/NON ORDERABLE LABS Fi nal Result Performing Organization Address [facility] Phone Number [facility] [place] [address], * HIV AB/AG (11/16/2019 10:03 AM EDT) Pathologist [facility] HIV AG/AB NONREACTIVE NR [facility]OUND[facility] SYSTEM Comment: HIV-1 p24 Ag and/or HIV-1/HIV-2 Ab not detected. A test result that is nonreactive does not exclude the possibility of exposure to or infection with HIV-1 and/or HIV-2. Nonreactive results in this assay for individuals with prior exposure to HIV-1 and/or HIV-2 may be due to antigen and antibody levels that are below the limit of detection of this assay. The Urena Armature Bander HIV Ag/Ab Combo assay result and supplemental assay results should be interpreted in conjunction with the patient's clinical presentation, history and other laboratory results. If the results are inconsistent with clinical evidence, additional testing is suggested to confirm the result. 11/16/2019 10:0 3 AM EDT us Laine Zamora HISTORICAL/NON ORDERABLE LABS Fi nal Result [facility] [address] from Last 3 Months or Most Recently Relevant to Health Maintenance Insurance [facility] C3 DENTAL-[facility] MEDICAID STAND ADULT Care Teams Youth Associate Relationship Specialty Start Date End Date Sarah Bradley MD [address] [place] [address] PCP - General Family Medicine 06/22/18 Bruce Cruz, MIQUEL [address] [place] [address] Registered Nurse Family Medicine 01/15/25 Veronica Preston 01/15/25 Aisha Savage Erp ProgrammerPlastic Sheets Finishing Supervisor 04/11/24
--- OUTSIDE RECORDS SUMMARY | 2025-04-29 12:45 | XMS_ITS | Encounter Summary ---
Author Organization [employer] Address [address] [facility] [address] 7t [place] [address] Care Team Providers Care Speech Therapy Director Name Role Phone Sarah Bradley MD Primary Care Provide r Bruce Cruz RN Unavailable [phone] Veronica Preston Unavailable Encounter Details Date Type Department Care Team ([facility] st Contact Info) Description 04/25/2025 Patient Outreach [facility] CH[facility] MED & PEDS [address] [place], [place] [phone] Sarah Bradley MD [address] [place] [address] Social History Tobacco Use Types Packs/Day Years [...] AM EDT documented as of this encounter Progress Notes * Veronica Preston - 04/25/2025 12:13 PM EDT CHW Veronica Preston placed outbound call to patient for follow up call on SDOH needs. No answer at this time. LVM introducing herself from [facility] CM Department. Requested call back. CHW reinforced direct contact information or CM for any additional questions or concerns and extended clinic hours on Mondays and Wednesdays, and Walk-In Urgent Care Located in Lobby of [facility]. Patient provided with after-hours line for [facility], , which offer night timetriage service and option to transfer to conveyor monitor provider if needed. CHW will attempt another follow up call within 10 days. documented in this encounter Plan of Treatment Not on file documented as of this encounter Visit Diagnoses Not on filedocumented in this encounter Additional Health Concerns Assessment Noted Time PHQ-9 Depression Total Score: 2 02/13/20 25 2:23 PM EDT documented as of this encounter Care Teams Speech Therapy Director Relationship Specialty Start Date End Date Sarah Bradley MD [address] [place] [address] PCP - General Family Medicine 06/22/18 Bruce Cruz, MIQUEL [address] [place] [address] Registered Nurse Family Medicine 01/15/25 Veronica Preston 01/15/25 Aisha Savage Application Operations EngineerSupervisor Heading 04/11/24 documented as of this encounter
--- OUTSIDE RECORDS SUMMARY | 2025-04-29 12:45 | XMS_ITS | Clinical Summary ---
Author Organization [employer] [facility] ity Address [address] [place] [address] Care Team Providers Care Semiconductor Technician Name Role Phone Unavailable Primary Care [...]
--- OUTSIDE RECORDS SUMMARY | 2025-04-29 12:45 | XMS_ITS | Encounter Summary ---
Author Organization [employer] Address 75 [facility] 7t [place] [address] Care Team Providers Care Dispenser Operator Name Role Phone Sarah Bradley MD Primary Care Provide r Bruce Cruz RN Unavailable [phone] Veronica Preston Unavailable Encounter Details Date Type Department Care Team (Late st Contact Info) Description 03/22/2023 Abstract [facility] MEDICINE [address] [place] [address] Sarah Bradley MD [address] [place] [address] Social History Tobacco Use Types Packs/Day Years [...] documented as of this encounter Care Teams Dispenser Operator Relationship Specialty Start Date End Date Sarah Bradley MD [address] [place] [address] PCP - General Family Medicine 06/22/18 Bruce Cruz, MIQUEL [address] [place] [address] Registered Nurse Family Medicine 01/15/25 Veronica Preston 01/15/25 Aisha Savage Lieutenant FirefighterTable Games Dealer 04/11/24 documented as of this encounter
[2025-04-29 13:16] LABS: Anion Gap 10 (12-20); Blood Urea Nitrogen 15 mg/dL (9-16); Calcium 8.8 mg/dL (8.4-10.2); Carbon Dioxide 25 mmol/L (22-29); Chloride 108 mmol/L (96-108); Estimated Glomerular Filt Rate > 60; Potassium 3.7 mmol/L (3.3-5.1); Sodium 139 mmol/L (135-145)
== END 2025-04-29 11:49 | disposition home or self-care (01) ==
LOC: HO.LAB 11:48
PROVIDERS: PCP Internal Medicine; Visit Provider Nurse Practitioner Family
DX: E87.6 Hypokalemia (principal)
CPT/HCPCS: 36415; 80048

== ENCOUNTER 2025-04-30 15:43 | Outpatient (AMB) | payer MEDICAID, SELFPAY ==
--- NOTE | 2025-04-30 16:25 | HO.NEPHOV ---
Vital Signs 04/30/25 16:27 Height 4 ft 11 in Weight 138 lb 2 oz BMI 27.9 BP 110/74 Blood Pressure Location Rt brachial Position Sitting Pulse 79 Pulse Source Pulse Oximeter Pulse Oximetry (%) 100 Oxygen Delivery Method Room Air Intake Visit Reasons: FU-Conf Student Services Dean Required: Yes Student Services Dean Language: Shipping Manager Services: Student Services Dean Present Student Services Dean Name: Korin [phone] Information Interpreted: clinical only Accompanied by: Self / Same As Patient Allergies latex (LATEX) Allergy (Intermediate, Verified 04/30/25 16:26) HANDS SWELL HPI Comments Details: 39 y/o female with a medical history of gastric sleeve surgery (reports on 01/14/25), HTN with H/O chronic hypokalemia here for routine follow up. States she is feeling well. She has been taking oral potassium supplementation as prescribed but was not taking spironolactone as prescribed. she denies pain, nausea, vomiting or diarrhea. patient denies use of prescribed/non-prescribed diuretics. Her urine diuretic screen was negative. She has no weakness nor has any systemic complaints at the time of this visit. [facility] Medical History BMI 37.0-37.9, adult Encounter for IUD removal Cervical cancer screening Prediabetes IUD check up Encounter for IUD insertion Left breast lump Well woman exam Family planning Hx of transfusion of packed red blood cells Migraine Seizures Non-insulin dependent type 2 diabetes mellitus Sleep apnea treated with continuous positive airway pressure (CPAP) Hypothyroidism Elevated cholesterol Obesity (BMI 30-39.9) Supraumbilical hernia HTN (hypertension) Anemia History of hypothyroidism Diastasis recti Depression Asthma GERD (gastroesophageal reflux disease) Surgical History S/P laparoscopic sleeve gastrectomy History of esophagogastroduodenoscopy (EGD) Hx of section History of umbilical hernia repair (05/13/19) Family History Father No problems noted. Mother HTN (hypertension) Asthma Hyperthyroidism Diabetes Paternal Aunt Breast cancer Son Asthma Son Asthma ADHD Son Asthma Daughter Autism Social History Household Members: Spouse Housing: Apartment Are you a primary child care centre director to a significant other at home: No Do you presently have visiting nurse or other home services: No Alcohol intake: former Comment: Patient gait and balance are steady. Patient Tobacco Use Status: Never used Tobacco service: No Sexual orientation: Straight/Heterosexual Gender identity: Female Female Reproductive History Menstrual Age of Menarche: 13 Review of Systems Const All systems reviewed & are unremarkable except as noted in HPI and below Physical Exam Vital Signs: Last Vital Signs Pulse 79 04/30/25 16:27 BP 110/74 04/30/25 16:27 Pulse Ox 100 04/30/25 16:27 Oxygen Delivery Method Room Air 04/30/25 16:27 BMI result Body Mass Index 27.9 Const General: comfortable and no acute distress Orientation/consciousness: patient oriented x3 HEENT Head: Yes normocephalic Mouth: Normal oral and palatal mucosa present Eyes EOM: EOMs intact bilaterally Neck Neck: Yes supple Resp Auscultation: clear to auscultation bilaterally Cardio Jugular venous distension: no JVD Rate: regular rate Heart sounds: Murmur heart sound present GI Palpation (GI): Soft to palpation Auscultation: normal bowel sounds General: Yes no CVA tenderness Back/Spine/Pelvis Back: no CVA tenderness Skin General skin exam: no rashes or lesions noted Neuro General: patient oriented x3 and moves all extremities Extrem General: Yes no pedal edema Results Reviewed Nephrology Results: Sodium, (135-145) 139 mmol/L 04/29/25 Potassium, (3.3-5.1) 3.7 mmol/L 04/29/25 Chloride, (96-108) 108 mmol/L 04/29/25 Carbon Dioxide, (22-29) 25 mmol/L 04/29/25 BUN, (9-16) 15 mg/dL 04/29/25 Creatinine, (0.5-1.4) 0.64 mg/dL 04/29/25 Calcium, (8.4-10.2) 8.8 mg/dL 04/29/25 Assessment & Plan Assessment & Plan (1) HTN (hypertension): Code(s): I10 - Essential (primary) hypertension Category: Medical Qualifiers: Hypertension type: primary hypertension Qualified Code(s): I10 - Essential (primary) hypertension (2) Hypokalemia: Code(s): E87.6 - Hypokalemia Category: Medical Plan Hypokalemia since long time. Denies family H/O. Urine diuretic screen negative. aldosterone level normal 24, ysostyxnzej-rt-kgokg ratio is normal at 3.9. Likely has tubular wasting. Continued W/U in progress. Discontinued KCl. Started Spironolactone 25 mg bid. F/U labs ordered. Answered all questions. Orders: Orders Calcium 2 Weeks E87.6 - Hypokalemia, I10 - Essential (primary) hypertension Parathyroid Hormone Intact 2 Weeks E87.6 - Hypokalemia, I10 - Essential (primary) hypertension Electrolytes 2 Weeks E87.6 - Hypokalemia, I10 - Essential (primary) hypertension Magnesium 2 Weeks E87.6 - Hypokalemia, I10 - Essential (primary) hypertension Medications: Changed From spironolactone Patient has chronic hypokalemia, ok to take with potassium supplementation. 25 mg PO .daily at bedtime 30 days 30 tabs 0RF E87.6 - Hypokalemia To spironolactone Discontinued KCl 25 mg PO BID 60 tabs 4RF 30 days E87.6 - Hypokalemia Discontinued potassium chloride ER (K-Tab) Discontinued Reason: Doctor's Order 20 mEq PO BID 30 days 60 tabs 0RF E87.6 - Hypokalemia Coding Level of Care Code Est Pt Level 4 (30669) Diagnoses Primary hypertension I10 Hypertension type: primary hypertension Hypokalemia E87.6
[2025-04-30 16:27] VITALS: BP 110/74; PULSE 79; O2SAT 100; BMI 27.9
--- OUTSIDE RECORDS SUMMARY | 2025-04-30 16:52 | XMS_ITS | Encounter Summary ---
Author Organization [employer] Address [address] [facility] 7t [place] [address] Care Team Providers Care Clinic Office Coordinator Name Role Phone Sarah Bradley MD Primary Care Provide r Bruce Cruz RN Unavailable [phone] Veronica Preston Unavailable Encounter Details Date Type Department Care Team (Late st Contact Info) Description 01/27/2023 Abstract [facility] [address] [place] [address] Sarah Bradley MD [address] [place] [address] Social History Tobacco Use Types Packs/Day Years [...] documented as of this encounter Care Teams Clinic Office Coordinator Relationship Specialty Start Date End Date Sarah Bradley MD [address] [place] [address] PCP - General Family Medicine 06/22/18 Bruce Cruz, MIQUEL [address] [place] [address] Registered Nurse Family Medicine 01/15/25 Veronica Preston 01/15/25 Aisha Savage Telephone Answering Service OperatorDoctor Naturopathic 04/11/24 documented as of this encounter
--- OUTSIDE RECORDS SUMMARY | 2025-04-30 16:52 | XMS_ITS | Encounter Summary ---
Author Organization [employer] Address [address] [facility] [address] 7t [place] [address] Care Team Providers Care It Quality Assurance Analyst Name Role Phone Sarah Bradley MD Primary Care Provide r Bruce Cruz RN Unavailable [phone] Veronica Preston Unavailable Encounter Details Date Type Department Care Team (Late st Contact Info) Description 04/29/2025 Orders Only GENERIC EXTERNAL DATA DEPARTMENT Provider, [...] Procedure Name Priority Date/Time Associated Diagnosis Comments BASIC METABOLIC PANEL Routine 04/29/2025 11:55 AM EDT documented in this encounter Results * (ABNORMAL) Basic Metabolic Panel (04/29/2025 11:55 AM EDT) Sodium 139 135 - 145 mmol/L [facility] Potassium 3.7 3.3 - 5.1 mmol/L [facility] Chloride 108 96 - 108 mmol/L [facility] Carbon Dioxide 25 22 - 29 mmol/L [facility] Anion Gap 10(L) 12 - 20 [facility] Urea Nitrogen (BUN) 15 9 - 16 mg/dL [facility] Creatinine, Serum 0.64 0.5 - 1.4 mg/dL [facility] Estimated Glomerular Filt Rate >60 [facility] Comment:Chronic Kidney Disea se: Estimated GFR < 60 mL/min/1.44e7Bhtlvg Kidney Disease: Estimated GFR < 15 mL/min/1.73m2 Glucose 91 60 - 115 mg/dL [facility] Calcium 8.8 8.4 - 10.2 mg/dL [facility] 04/29/2025 11:5 5 AM EDT 04/29/2025 11:55 AM EDT us Generic External Data Provider LAB BLOOD ORDERAB LES Final Result [facility] [address] [place] [address] [phone] documented in this encounter Visit Diagnoses Not on filedocumented in this encounter Additional Health Concerns Assessment Noted Time PHQ-9 Depression Total Score: 2 02/13/20 25 2:23 PM EDT documented as of this encounter Care Teams It Quality Assurance Analyst Relationship Specialty Start Date End Date Sarah Bradley MD [address] [place] [address] PCP - General Family Medicine 06/22/18 Bruce Cruz, RN [address] [place] [address] Registered Nurse Family Medicine 01/15/25 Veronica Preston 01/15/25 Aisha Savage Plant ScientistLabel Sewer 04/11/24 documented as of this encounter
--- OUTSIDE RECORDS SUMMARY | 2025-04-30 16:52 | XMS_ITS | Encounter Summary ---
Author Organization [employer] Address [address] [place] [address] 7t [place] [address] Care Team Providers Care Bag Bleacher Name Role Phone Sarah Bradley MD Primary Care Provide r Bruce Cruz RN Unavailable [phone] Veronica Preston Unavailable Encounter Details Date Type Department Care Team (Late st Contact Info) Description 06/07/2023 Abstract [facility] MEDICINE [address] [place] [address] Sarah Bradley MD [address] [place] [address] Social History Tobacco Use Types Packs/Day Years [...] documented as of this encounter Care Teams Bag Bleacher Relationship Specialty Start Date End Date Sarah Bradley MD [address] [place] [address] PCP - General Family Medicine 06/22/18 Bruce Cruz, RN [address] [place] [address] Registered Nurse Family Medicine 01/15/25 Veronica Preston 01/15/25 Aisha Savage Marketing Director Assisted LivingSenior Corporate Strategy Manager 04/11/24 documented as of this encounter
--- OUTSIDE RECORDS SUMMARY | 2025-04-30 16:52 | XMS_ITS | Encounter Summary ---
Author Organization [employer] Address [address] [facility] 7t [place] [address] Care Team Providers Care Milk Delivery Driver Name Role Phone Sarah Bradley MD Primary Care Provide r Bruce Cruz RN Unavailable [phone] Veronica Preston Unavailable Reason for Visit * Reason Onset Date Comments Hospital Follow-up 03/10/2025 Encounter Details Date Type Department Care Team ([facility] st Contact Info) Description 03/10/2025 Telephone [facility] MEDICINE [address] [place], [place] [phone] Sarah Bradley MD [address] [place], [place] [phone] Hospital Follow-up Social History Tobacco Use Types [...] the past 12 months, has t he [employer], gas, oil or water company threatened to [...] from pt requesting a HDF appt. Hospital: [facility] Date of admission: 02/23 Discharge date: 02/26 Diagnosed: gastritis *Send message to [place] Clinical Care Coordinators Contact pt at [phone] (icelandic) documented in this encounter Plan of Treatment Not on file documented as of this encounter Visit Diagnoses Not on filedocumented in this encounter Additional Health Concerns Assessment Noted Time PHQ-9 Depression Total Score: 2 02/13/20 25 2:23 PM EDT documented as of this encounter Care Teams Milk Delivery Driver Relationship Specialty Start Date End Date Sarah Bradley MD [address] [place] [address] PCP - General Family Medicine 06/22/18 Bruce Cruz, MIQUEL [address] [place] [address] Registered Nurse Family Medicine 01/15/25 Veronica Preston 01/15/25 Aisha Savage Tire InstallerCritical Care Registered Nurse 04/11/24 documented as of this encounter
--- OUTSIDE RECORDS SUMMARY | 2025-04-30 16:52 | XMS_ITS | Encounter Summary ---
Author Organization [employer] Address [address] [facility] 7t [place] [address] Care Team Providers Care Burial Agent Name Role Phone Sarah Bradley MD Primary Care Provide r Bruce Cruz RN Unavailable [phone] Veronica Preston Unavailable Encounter Details Date Type Department Care Team (Late st Contact Info) Description 03/22/2023 Abstract [facility] MEDICINE [address] [place] [address] Sarah Bradley MD [address] [place] [address] Social History Tobacco Use Types Packs/Day Years [...] documented as of this encounter Care Teams Burial Agent Relationship Specialty Start Date End Date Sarah Bradley MD [address] [place] [address] PCP - General Family Medicine 06/22/18 Bruce Cruz, MIQUEL [address] [place] [address] Registered Nurse Family Medicine 01/15/25 Veronica Preston 01/15/25 Aisha Savage Blanchard Grinder OperatorRepairer Finished Metal 04/11/24 documented as of this encounter
--- OUTSIDE RECORDS SUMMARY | 2025-04-30 16:52 | XMS_ITS | Encounter Summary ---
Author Organization [employer] Address [address] [facility] [address] [place] [address] Care Team Providers Care Weighing Station Operator Name Role Phone Sarah Bradley MD Primary Care Provide r Bruce Cruz RN Unavailable [phone] Veronica Preston Unavailable Encounter Details Date Type Department Care Team (Late st Contact Info) Description 03/22/2023 Orders Only [facility] MEDICINE [address] [place] [address] Provider, MD Yessi Social History Tobacco Use [...] documented as of this encounter Care Teams Weighing Station Operator Relationship Specialty Start Date End Date Sarah Bradley MD [address] [place] [address] PCP - General Family Medicine 06/22/18 Bruce Cruz, MIQUEL [address] [place] [address] Registered Nurse Family Medicine 01/15/25 Veronica Preston 01/15/25 Aisha Savage Process Control EngineerPort Warden 04/11/24 documented as of this encounter
--- OUTSIDE RECORDS SUMMARY | 2025-04-30 16:52 | XMS_ITS | Clinical Summary ---
Author Organization [employer] [facility] ity Address [address] [place] [address] Care Team Providers Care Clinical Massage Therapist Name Role Phone Unavailable Primary Care Provider [...]
--- OUTSIDE RECORDS SUMMARY | 2025-04-30 16:52 | XMS_ITS | Encounter Summary ---
Author Organization [employer] Address [address] [facility] [address]t [place] [address] Care Team Providers Care Logistics Planning Engineer Name Role Phone Sarah Bradley MD Primary Care Provide r Bruce Cruz RN Unavailable [phone] Veronica Preston Unavailable Encounter Details Date Type Department Care Team ([facility] st Contact Info) Description 04/25/2025 Patient Outreach [facility] CHC MED & PEDS [address] [place], [place] [phone] Sarah Bradley MD [address] [place] [address] Social History Tobacco Use Types Packs/Day Years [...] at this time. LVM introducing herself from [facility] CM Department. Requested call back. CHW reinforced direct contact information or CM for any additional questions or concerns and extended clinic hours on Mondays and Wednesdays, and Walk-In Urgent Care Located in Lobby of [facility]. Patient provided with after-hours line for [facility], , which offer night timetriage service and option to transfer to donor services specialist provider if needed. CHW will attempt another follow up call within 10 days. documented in this encounter Plan of Treatment Not on file documented as of this encounter Visit Diagnoses Not on filedocumented in this encounter Additional Health Concerns Assessment Noted Time PHQ-9 Depression Total Score: 2 02/13/20 25 2:23 PM EDT documented as of this encounter Care Teams Logistics Planning Engineer Relationship Specialty Start Date End Date Sarah Bradley MD [address] [place] [address] PCP - General Family Medicine 06/22/18 Bruce Cruz, MIQUEL [address] [place] [address] Registered Nurse Family Medicine 01/15/25 Veronica Preston 01/15/25 Aisha Savage Claims InvestigatorAuthor 04/11/24 documented as of this encounter
--- OUTSIDE RECORDS SUMMARY | 2025-04-30 16:52 | XMS_ITS | Encounter Summary ---
Author Organization [employer] Address [address] [place] [address] 7 [place] [address] Care Team Providers Care Acid Pump Operator Name Role Phone Sarah Bradley MD Primary Care Provide r Bruce Cruz RN Unavailable [phone] Veronica Preston Unavailable Encounter Details Date Type Department Care Team (Latest Contact Info) Description 12/15/2020 Abstract [facility] CONVERSIONS Dental, Provider, DDS Social History [...] on filedocumented in this encounter Care Teams Acid Pump Operator Relationship Specialty Start Date End Date Sarah Bradley MD [address] [place] [address] PCP - General Family Medicine 06/22/18 Bruce Cruz, RN [address] [place] [address] Registered Nurse Family Medicine 01/15/25 Veronica Preston 01/15/25 Aisha Savage Continuity EditorIndustrial Safety And Health Specialist 04/11/24 documented as of this encounter
--- OUTSIDE RECORDS SUMMARY | 2025-04-30 16:52 | XMS_ITS ---
Author Organization [employer] Address 75 [facility] 7 [place] [address] Care Team Providers Care Consumer Services Advisor Name Role Phone Sarah Bradley MD Primary Care Provide r Bruce Cruz RN Unavailable [phone] Veronica Preston Unavailable CM Complex Status:Enrolled (Active) Start date:01/15/2025 Enrollment date:02/12/2025 Enrollment reason:ADT Feed Overview ADT- Pt admitted to [facility] on 01/14/25. Case Team Name Relationship Phone Bruce Cruz RN(Responsible Staff) Registered Jus dao [phone] Continued Care and Services Coordination
--- OUTSIDE RECORDS SUMMARY | 2025-04-30 16:52 | XMS_ITS ---
Author Organization [employer] Address [address] [place] [address] 7 [place] [address] Care Team Providers Care Pesticide Control Inspector Name Role Phone Sarah Bradley MD Primary Care Provide r Bruce Cruz RN Unavailable [phone] Veronica Preston Unavailable [facility] Status:Enrolled (Active) Start date:01/15/2025 Enrollment date:03/12/2025 Enrollment reason:ADT Feed Overview ADT- [place] [facility] [place]. Case Team Name Relationship Phone Veronica Preston(Responsible Staff) [phone] Continued Care and Services Coordination
--- OUTSIDE RECORDS SUMMARY | 2025-04-30 16:52 | XMS_ITS | Encounter Summary ---
Author Organization [employer] Address [address] [place] [address] Care Team Providers Care Nursing Educator Name Role Phone Sarah Bradley MD Primary Care Provide r Bruce Cruz RN Unavailable [phone] Veronica Preston Unavailable Reason for Visit * Reason Onset Date Comments PT1 03/22/2024 Encounter Details Date Type Department Care Team ([facility] st Contact Info) Description 03/22/2024 Telephone [facility] MEDICINE [address] [place], [place] [phone] Sarah Bradley MD [address] [place], [place] [phone] PT1 Social History Tobacco Use Types Packs/Day [...] Y/N: Yes Provider name or facility name: [facility] Facility Address: [address] [place] [phone] Escort needed: Y/N: No Do you have [...] documented as of this encounter Care Teams Nursing Educator Relationship Specialty Start Date End Date Sarah Bradley MD [address] [place] [address] PCP - General Family Medicine 06/22/18 Bruce Cruz RN [address] [place] [address] Registered Nurse Family Medicine 01/15/25 Veronica Preston 01/15/25 Aisha Savage Manager ParkTank Carpenter 04/11/24 documented as of this encounter
--- OUTSIDE RECORDS SUMMARY | 2025-04-30 16:52 | XMS_ITS | Encounter Summary ---
Author Organization [employer] Address [address] [place] [address] Care Team Providers Care Hot Frame Tender Name Role Phone Sarah Bradley MD Primary Care Provide r Bruce Cruz RN Unavailable [phone] Veronica Preston Unavailable Encounter Details Date Type Department Care Team ([facility] st Contact Info) Description 07/26/2024 Telephone [facility] MEDICINE [address] [place] [address] Sarah Bradley MD [address] [place], [place] [phone] Social History Tobacco Use Types Packs/Day Years [...] documented as of this encounter Care Teams Hot Frame Tender Relationship Specialty Start Date End Date Sarah Bradley MD [address] [place] [address] PCP - General Family Medicine 06/22/18 Bruce Cruz, RN [address] [place] [address] Registered Nurse Family Medicine 01/15/25 Veronica Preston 01/15/25 Aisha Savage Cable RepairerLandscape Drafter 04/11/24 documented as of this encounter
--- OUTSIDE RECORDS SUMMARY | 2025-04-30 16:52 | XMS_ITS | Clinical Summary ---
Author Organization [employer] Address [address] [facility] 7t [place] [address] Care Team Providers Care Senior Outside Sales Representative Name Role Phone Sarah Bradley MD Primary Care Provide r Bruce Cruz RN Unavailable [phone] Veronica Preston Unavailable Allergies Active Allergy [...] Encounters Date Type Department Care Team Description 04/29/2025 Orders Only GENERIC EXTERNAL DATA DEPARTMENT Provider, Generic External Data 04/25/2025 Patient Outreach [facility] [address] [place] [address] Sarah Bradley MD 04/10/2025 Patient Outreach [facility] [address] [place] [address] Sarah Bradley MD Care Coordination (C3/CM F/U) 2025 Patient Outreach [facility] MEDICINE [address] [place] [phone] Sarah Bradley MD Care Management (C3CM- F/U call # 1) 03/26/2025 Patient Outreach [facility] [address] [place] [address] Sarah Bradley MD Care Coordination (C3/CM F/U) 03/25/2025 1:15 PM EDT Office Visit [facility] MEDICINE [address] [place] [phone] Sarah Bradley MD 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 (Primary Dx); Prediabetes; Severe major depression, single episode, without psychotic features (CMS/HCC); Uncomplicated asthma, unspecified asthma severity, unspecified whether persistent; Hypokalemia; Status post bariatric surgery 03/25/2025 Travel 03/24/2025 Orders Only GENERIC EXTERNAL DATA DEPARTMENT Provider, Generic External Data 03/24/[address] [address] Sarah Bradley MD Chart Prep 03/19/2025 Orders Only GENERIC EXTERNAL DATA DEPARTMENT Provider, Generic External Data 03/12/2025 Patient Outreach [facility] [address] [place] [address] Sarah Bradley MD 03/10/2025 Orders Only GENERIC EXTERNAL DATA DEPARTMENT Provider, Generic External Data 03/10/2025 Patient Outreach [address] [address] Sarah Bradley MD Transition Of Care (Tcm) (HDF scheduled and SDOH screening completed on 12/20/24 ) 03/10/[address] [address] Sarah Bradley MD Hospital Follow-up 03/06/2025 Orders Only GENERIC EXTERNAL DATA DEPARTMENT Provider, Generic External Data 03/03/2025 Patient Outreach [address] [address] Sarah Bradley MD Care Management (C3CM- F/U call # 1/LVM) 02/28/2025 11:30 AM EDT Office Visit [facility] OPTOMETRY [address] [place] [address] Nehemias, Katy, OD Myopia of both eyes (Primary Dx) 02/23/2025 Orders Only GENERIC EXTERNAL DATA DEPARTMENT Provider, Generic External Data 02/17/2025 Plan of Care Documentation [address] [address] 02/12/2025 Patient Outreach [address] [address] Sarah Bradley MD Care Management (C3CM- Initial assessment/enrollme nt) 02/11/2025 Patient Outreach [facility] [address] [place], [place] [phone] Sarah Bradley MD Care Coordination (C3/CM Appt reminder) 01/30/2025 Patient Outreach [facility] MED & PEDS [address] [place] [address] Sarah Bradley MD 01/29/2025 10:30 AM EDT Office Visit [facility] OPTOMETRY [address] [place] [address] Nehemias, Katy, OD White without pressure of peripheral retina [...] 11/27/2020 Dental X-Ray: Full Mouth 11/29/2023 11/27/2020, 02/2008 Dental X-Ray: Bitewings 03/03/2024 03/02/20 23, [...] METABOLIC PANEL Routine 04/29/2025 11:55 AM EDT POCT GLYCATED HEMOGLOBIN, TOTAL Routine 03/25/2025 1:35 [...] Recently Relevant to Health Maintenance Results * (ABNORMAL) Basic Metabolic Panel (04/29/2025 11:55 AM EDT) Only the most recent of4 resultswithin the time period is included. Sodium 139 135 - 145 mmol/L [facility] Potassium 3.7 3.3 - 5.1 mmol/L [facility] Chloride 108 96 - 108 mmol/L [facility] Carbon Dioxide 25 22 - 29 mmol/L [facility] Anion Gap 10(L) 12 - 20 [facility] Urea Nitrogen (BUN) 15 9 - 16 mg/dL [facility] Creatinine, Serum 0.64 0.5 - 1.4 mg/dL [facility] Estimated Glomerular Filt Rate >60 [facility] Comment:Chronic Kidney Disea se: Estimated GFR < 60 mL/min/1.70k4Zocpsh Kidney Disease: Estimated GFR < 15 mL/min/1.73m2 Glucose 91 60 - 115 mg/dL [facility] Calcium 8.8 8.4 - 10.2 mg/dL [facility] 04/29/2025 11:5 5 AM EDT 04/29/2025 11:55 AM EDT us Generic External Data Provider LAB BLOOD ORDERAB LES Final Result [facility] [address] [place] [phone] * POCT HGB A1C (03/25/2025 1:35 PM EDT) Hemoglobin A1C 5.0 4.0 - 5.7 % QC Media Lot # [id number] Lot# Expiration Date Blood 03/25/2025 1:3 5 PM EDT us Sarah Galdamez MD POINT OF CARE TEST EN TER/EDIT ORDERABLES Final Result * POCT Glucose (03/25/2025 1:34 PM EDT) Glucose Blood, POC 82 60 - 200 mg/dL [employer] Media Lot # [id number] Lot# Expiration Date ,[id number] Blood Capillary blood specimen / Unknown 03/25/2025 1:34 PM EDT us Sarah Galdamez MD POINT OF CARE TEST EN TER/EDIT ORDERABLES Final Result * Other Reference Test - Misc (03/24/2025 9:21 AM EDT) 03/24/2025 9:21 AM EDT 03/24/2025 10:08 AM EDT Narrative [facility] - 04/04/2025 2:05 PM EDT Urine diuretic screening CODE 35716 us Generic External Data Provider LAB BLOOD ORDERAB LES Final Result [facility] [address] [place] [phone] * (ABNORMAL) Aldosterone/Plasma Renin Activity Ratio, LC/MS/MS (03/10/2025 10:24 AM EDT) Aldosterone 24 see note ng/dL [facility] Comment:Unable to flag abnor mal result(s), please refer to reference range(s) below:Adult Reference Ranges for Aldosterone, LC/MS/MS: Upright 8:00 - 10:00 am < or = 28 ng/dL Upright 4:00 - 6:00 pm < or = 21 ng/dL Supine 8:00 - 10:00 am 3 - 16 ng/dLTHIS TEST WAS PERFORMED AT:[id number] [place] [address]FGYFJAMMEERA RAYMOND MD,PHD Plasma Renin Activity 6.13(A) 0.25 - 5.82 ng/mL/h [facility] Aldosterone/Renin Ratio 3.9 0.9 - 28.9 Ratio [facility] Comment:This test was devkarolyno ped and its analytical performancecharacteristics have been determined by [facility] [place], [place]. It hasnot been cleared or approved by the U.S. Food and DrugAdministration. This assay has been validated pursuantto the CLIA regulations and is used for clinicalpurposes.THIS TEST WAS PERFORMED AT:[id number] [place] [address]RSOVUIQ W. MASON,MD,PHD 03/10/2025 10:2 4 AM EDT 03/10/2025 10:24 AM EDT Generic External Data Provider LAB BLOOD ORDERAB LES Final Result Performing Organization Address [facility] Co de Phone Number [facility] [address] [place] [phone] * Osmolality, Serum (03/06/2025 10:49 AM EDT) Osmolality (Serum) 294 281 - 305 mosm/kg [facility] 03/06/2025 10:4 9 AM EDT 03/06/2025 10:49 AM EDT Generic External Data Provider LAB BLOOD ORDERAB LES Final Result Performing Organization Address [facility] Co de Phone Number [facility] [address] [place] [phone] * CT Abdomen Pelvis w/ Contrast (02/23/2025 8:18 PM EDT) Anatomical Region Laterality Modality Body, Pelvis, Abdomen Computed T omography 02/23/2025 8:18 PM EDT Narrative 02/23/2025 8:19 PM EDT [address] [address] [address] Scan Report Signed Patient: Sarah Sheikh I MR#: [id number] : 1985 Acct:[id number] Age/Sex: 39 / F ADM Date: 02/23/25 Loc: .ED Attending Dr: Ordering Physician: Brie Samayoa Date of Service: 02/23/25 Procedure(s): CT abdomen pelvis w IV con Accession Number(s): [id number] cc: Sarah Bradley MD; Brie Samayoa Report Number: [id number]: Total DLP = 462.00 mGy-cm CLINICAL HISTORY: abd pain, s p gastric bypass CT abdomen and pelvis with contrast Comparison: CT/NM/SR - CT ABDOMEN PELVIS WO IV CON [...] in OV> 02/23/252018 DD/ 17 TD/TT: 02/23/252017 Payment Analyst: Procedure Note Donotuseinterpreter, Image - 02/23/[address] [place] [address] [address] Scan Report Signed Patient: Sarah Sheikh IMR#: [id number] : 1985Acct:[id number] Age/Sex: 39 / FADM Date: 02/23/25 Loc: HO.ED Attending Dr: Ordering Physician: Brie Samayoa Date of Service: 02/23/25 Procedure(s): CT abdomen pelvis w IV con Accession Number(s): [id number] cc: Sarah Bradley MD; Brie Samayoa Report Number: [id number]: Total DLP = 462.00 mGy-cm CLINICAL HISTORY: abd pain, s p gastric bypass CT abdomen and pelvis with contrast Comparison: CT/NM/SR - CT ABDOMEN PELVIS WO IV CON [...] in OV> 02/23/252018 DD/ 17 TD/TT: 02/23/252017 Payment Analyst: [facility] External Provider IMG CT PROCEDURES Edited Result - Final * (ABNORMAL) Urinalysis, Complete, with Reflex to Culture (02/23/2025 5:42 PM EDT) Color Urine Dark Yellow [facility] Appearance Urine Turbid [facility] PH 6.5 5.0 - 9.0 [facility] Glucose Urine UA Negative Negative mg/dL [facility] Urine Blood Negative Negative [facility] Specific [place] - Urine >=1.030(H) 1.005 - 1.025 [facility] Urine Protein 100 (2+)(A) Neg-Trace mg/dL [facility] Urine Ketones >=160 Negative mg/dL [facility] Nitrite Urine Negative Negative [facility] Leukocyte Esterase Urine Trace(A) Negative [facility] RBC Urine 3-5(A) 0 - 2 /HPF [facility] Urine WBC 6-10(A) 0 - 5 /HPF [facility] Urine Squamous Epithelial Cell >20 0 - 2 /HPF [facility] Other Crystals Urine Present [facility] Urine Bacteria 3+ None Seen [facility] Hyaline Casts, Urine 3-5 0 - 2 /LPF [facility] 02/23/2025 5:42 PM EDT 02/23/2025 5:52 PM EDT Narrative [facility] - 02/23/2025 6:15 PM EDT Urine, Clean Catch us Generic External Data Provider LAB URINE ORDERAB LES Final Result [facility] [address] [place] [phone] [phone] * (ABNORMAL) CBC auto differential (02/23/2025 5:26 PM EDT) White Blood Count 5.4 4.8 - 10.8 X10*3/uL [facility] Red Blood Count 4.88 4.20 - 5.50 X10*6/uL [facility] Hemoglobin 13.3 12.0 - 16.0 g/dl [facility] Hematocrit 39.2 37.0 - 47.0 % [facility] Mean Corpuscular Volume 80.3 80.0 - 98.0 fL [facility] Mean Corpuscular Hemoglobin 27.3 27.0 - 33.0 pg [facility] Mean Corpuscular HGB Conc 33.9 31.0 - 35.0 g/dl [facility] Red Cell Distribution Width 18.1(H) 11.0 - 16.0 % [facility] Platelet Count 182 160 - 400 X10*3/uL [facility] Mean Platelet Volume 12.0 9.4 - 12.3 fL [facility] Neutrophils Percent Auto 60.2 45 - 73 % [facility] Imm Gran Pct Auto 0.4 0.0 - 0.4 % [facility] Lymphocytes Percent Auto 26.6 20 - 40 % [facility] Monocytes Percent Auto 9.8 2 - 11 % [facility] Eosinophils Percent Auto 2.4 0 - 4 % [facility] Basophils Percent Auto 0.6 0 - 2 % [facility] NRBC Pct Auto 0.0 0.0 - 0.2 /100WBC [facility] Neutrophils Absolute Auto 3.3 2.0 - 8.3 x10*3/uL [facility] Imm Gran Abs Auto 0.02 0.00 - 0.03 X10*3/uL [facility] Lymphocytes Absolute Auto 1.4 1.2 - 4.9 X10*3/uL [facility] Monocytes Absolute Auto 0.5 0.1 - 1.2 X10*3/uL [facility] Eosinophils Absolute Auto 0.1 0.0 - 0.4 X10*3/uL [facility] Basophils Absolute Auto 0.0 0.0 - 0.2 X10*3/uL [facility] NRBC Abs Auto 0.000 0.0 - 0.012 X10*3/uL [facility] 02/23/2025 5:26 PM EDT 02/23/2025 5:31 PM EDT us Generic External Data Provider LAB BLOOD ORDERAB LES Final Result [facility] [address] [place] [phone] * hCG, Total, Quantitative (02/23/2025 5:26 PM EDT) HCG Quantitative <2 mIU/mL [facility] Comment:Weeks post LMP Appro ximate hCG(Last Menstrual Period) Range (mIU/ml)3 - 4 weeks 9 - 1304 - 5 weeks 75 - 2,6005 - 6 weeks 850 - 20,8006 - 7 weeks 4000 - 100,2007 - 12 weeks 11,500 - 289,97862 - 16 weeks 18,300 - 137,07475 - 29 weeks (2nd trimester) 1,400 - 53,81457 - 41 weeks (3rd trimester) 940 - [...] Final Result Performing Organization Address [facility] Co de Phone Number [facility] [address] [place] [phone] * Magnesium (02/23/2025 5:26 PM EDT) Pathologist [facility] Magnesium 1.8 1.6 - 2.6 mg/dL [facility] 02/23/2025 5:26 PM EDT 02/23/2025 5:31 PM EDT Generic External Data Provider LAB BLOOD ORDERAB LES Final Result Performing Organization Address [facility] de Phone Number [facility] [address] [place] [phone] * (ABNORMAL) Lipase (02/23/2025 5:26 PM EDT) [facility] Lipase 116(H) 8 - 78 U/L [facility] 02/23/2025 5:26 PM EDT 02/23/2025 5:31 PM EDT Generic External Data Provider LAB BLOOD ORDERAB LES Final Result Performing Organization Address [facility] de Phone Number [facility] [address] [place] [phone] * (ABNORMAL) Comprehensive Metabolic Panel (02/23/2025 5:26 PM EDT) [facility] Sodium 142 135 - 145 mmol/L [facility] Potassium 2.6(LL) 3.3 - 5.1 mmol/L [facility] Comment:Critical value for t est(s): POTS Results called to and readback by: [facility] Person calling: [email or web address] Date: 02/23/25Time:1759 Chloride 106 96 - 108 mmol/L [facility] Carbon Dioxide 20(L) 22 - 29 mmol/L [facility] Anion Gap 19 12 - 20 [facility] Urea Nitrogen (BUN) 10 9 - 16 mg/dL [facility] Creatinine, Serum 0.64 0.5 - 1.4 mg/dL [facility] Creatinine Clr Calc Pharmacy 98.9 [facility] Comment:Provided height and weight: 149.86 cm,65.317 kg.eGFR (calculated from the MDRD study equation) and eCrCl(calculated from the Cockcroft-Gault equation) are based ondifferent parameters and may not yield comparable results.If eCrCl result is absurd, please check patient'sheight/weight. Estimated Glomerular Filt Rate >60 [facility] Comment:Chronic Kidney Disea se: Estimated GFR < 60 mL/min/1.64b7Oyzfne Kidney Disease: Estimated GFR < 15 mL/min/1.73m2 Glucose 102 60 - 115 mg/dL [facility] Calcium 9.4 8.4 - 10.2 mg/dL [facility] Bilirubin, Total 0.5 0.0 - 1.0 mg/dL [facility] Aspartate Amino Transferase 17 5 - 31 U/L [facility] Alanine Aminotransferase 14 0 - 31 U/L [facility] Total Protein 7.9 6.5 - 8.0 g/dL [facility] Albumin Level 4.6 3.5 - 5.0 g/dL [facility] Alkaline Phosphatase 64 39 - 117 U/L [facility] 02/23/2025 5:26 PM EDT 02/23/2025 5:31 PM EDT us Generic External Data Provider LAB BLOOD ORDERAB LES Final Result [facility] [address] [place] [phone] * Fundus Photos - OU - [...] 9:07 AM EST) Triglycerides 150(H) <150 mg/dL [facility] Comment:Desirable Triglyceri de: less than 150 mg/dLBorderline High Triglyceride 150-199 mg/dLHigh Triglyceride: 200-499 mg/dLVery High Triglyceride: greater than or equal to 5OO mg/dL Cholesterol 170 <200 mg/dL [facility] Comment:Desirable Cholestero l: less than 200 mg/dLBorderline High Cholesterol: 200-239 mg/dLHigh Cholesterol: greater than 239 mg/dL LDL Cholesterol Calculated 101(H) <100 mg/dL [facility] Comment:Desirable LDL: less than 100 mg/dLNear Optimal/Above Optimal LDL: 110- 129 mg/dLBorderline High LDL: 130-159 mg/dLHigh LDL: 160-189 mg/dLVery High LDL: greater than or equal to 190 mg/dL HDL Cholesterol 39(L) >40 mg/dL [facility] Comment:Desirable HDL: great er than 40 mg/dL Note: This HDL assay may give artificially low results in patients with liver disease. 09/30/2024 9:07 AM EST 09/30/2024 9:07 AM EST us Generic External Data Provider LAB BLOOD ORDERAB LES Final Result [facility] [address] [place] [phone] * Hm Pap Smear (02/21/2023) Historical Provider HEALTH MAINTENANCE Final Result * HPV E6/E7 RFLX CLAIRE 16 18/45 (12/08/2021 10:43 AM EDT) Pathologist [facility] HPV mRNA E6/E7 rflx Not Detected Not Detected [facility] Comment: Methodology: Underwater Welder-Mediated Amplification This assay detects E6/E7 viral messenger RNA (mRNA) from 14 high-risk HPV types (16,18,31,33,35,39,45,51,52,56,58,59,66,68). The analytical performance characteristics of this assay have been determined by [employer]. The modifications have not been cleared or approved by the FDA. This assay has been validated pursuant to the CLIA regulations and is used for clinical purposes. For additional information, please refer to http://education.Write.my/faq/IEM373d5 (This link if provided for information/ educational purposes only.) THIS TEST WAS PERFORMED AT: [employer] [address] [place] [address],[place] [address] KLAUS BRASHER MD 12/08/2021 10:4 3 AM EDT Laine Zamora HISTORICAL/NON ORDERABLE LABS Fi nal Result Performing Organization Address [facility] Phone Number [facility] [address] * HEPATITIS C ANTIBODY (11/16/2019 10:03 AM EDT) [facility] HEPATITIS C ANTIBODY NONREACTIVE NONREACTIVE [facility] Comment: Antibodies to HCV not detected; does not exclude early acute HCV infection. 11/16/2019 10:0 3 AM EDT Laine Zamora HISTORICAL/NON ORDERABLE LABS Fi nal Result Performing Organization Address [facility] Phone Number [facility] [address] * HIV AB/AG (11/16/2019 10:03 AM EDT) [...] of detection of this assay. The [employer] Regulatory Compliance Engineer HIV Ag/Ab Combo assay result and supplemental assay results should be interpreted in conjunction with the patient's clinical presentation, history and other laboratory results. If the results are inconsistent with clinical evidence, additional testing is suggested to confirm the result. 11/16/2019 10:0 3 AM EDT us Laine Zamora HISTORICAL/NON ORDERABLE LABS Fi nal Result [facility] [address] from Last 3 Months or Most Recently Relevant to Health Maintenance Insurance [facility] STAND ADULT Care Teams Senior Outside Sales Representative Relationship Specialty Start Date End Date Sarah Bradley MD [address] [place] [phone] PCP - General Family Medicine 06/22/18 Bruce Cruz, MIQUEL [address] [place] [phone] Registered Nurse Family Medicine 01/15/25 Veronica Preston 01/15/25 Aisha Savage Pocket Secretary AssemblerLog Sorter 04/11/24
== END 2025-04-30 16:45 | disposition home or self-care (01) ==
LOC: HO.HKA 15:43
PROVIDERS: PCP Internal Medicine; Visit Provider Internal Medicine Nephrology
DX: I10 Essential (primary) hypertension (principal); E87.6 Hypokalemia
CPT/HCPCS: 99214

== ENCOUNTER → 2025-04-30 15:43 | Outpatient (BNVA) | payer MEDICAID, SELFPAY | PROVIDERS: PCP Internal Medicine; Visit Provider Internal Medicine Nephrology | DX: I10 Essential (primary) hypertension (principal); E87.6 Hypokalemia; Z90.3 Acquired absence of stomach [part of] | CPT/HCPCS: 99212 ==

== ENCOUNTER 2025-05-13 08:41 | Outpatient (REF) | payer MEDICAID, SELFPAY ==
--- OUTSIDE RECORDS SUMMARY | 2025-05-13 09:49 | XMS_ITS | Encounter Summary ---
Author Organization [email or web address] Address [address] [place] [address] 7 [place] [address] Care Team Providers Care Crochet Beader Name Role Phone Sarah Bradley MD Primary Care Provide r Bruce Cruz RN Unavailable [phone] Veronica Preston Unavailable Encounter Details Date Type Department Care Team (Latest Contact Info) Description 12/15/2020 Abstract [facility] CONVERSIONS Dental, Provider, DDS Social History Tobacco [...] on filedocumented in this encounter Care Teams Crochet Beader Relationship Specialty Start Date End Date Sarah Bradley MD [address] [place] [phone] PCP - General Family Medicine 06/22/18 Bruce Cruz, RN [address] [place] [phone] Registered Nurse Family Medicine 01/15/25 Veronica Preston 01/15/25 Aisha Savage Commercial Artist LetteringManager Architectural 04/11/24 documented as of this encounter
--- OUTSIDE RECORDS SUMMARY | 2025-05-13 09:49 | XMS_ITS | Encounter Summary ---
Author Organization [employer] Address [address] [facility] 7t [place] [address] Care Team Providers Care Engagement Liaison Name Role Phone Sarah Bradley MD Primary Care Provide r Bruce Cruz RN Unavailable [phone] Veronica Preston Unavailable Encounter Details Date Type Department Care Team (Late st Contact Info) Description 01/27/2023 Abstract [facility] MED[facility] [address] [place] [address] Sarah Bradley MD [address] [place] [address] Social History Tobacco Use Types Packs/Day Years [...] documented as of this encounter Care Teams Engagement Liaison Relationship Specialty Start Date End Date Sarah Bradley MD [address] [place] [phone] PCP - General Family Medicine 06/22/18 Bruce Cruz, MIQUEL [address] [place] [phone] Registered Nurse Family Medicine 01/15/25 Veronica Preston 01/15/25 Aisha Savage [employer]os Report DeveloperPublic Affairs Specialist 04/11/24 documented as of this encounter
--- OUTSIDE RECORDS SUMMARY | 2025-05-13 09:49 | XMS_ITS | Clinical Summary ---
Author Organization [employer] Address [address] [facility] 7t [place] [address] Care Team Providers Care Hotel Front Desk Agent Name Role Phone Sarah Bradley MD Primary Care Provide r Bruce Cruz RN Unavailable [phone] Veronica Preston Unavailable Allergies Active Allergy Reactions Criticality Noted Date Comments Latex 09/01/2022 Medications docusate sodium (Colace) 100 MG capsule Take 1 capsule by mouth if needed in the morning and at bedtime for constipation. 2 Active levothyroxine (Synthroid) 137 MCG tabletIndications: Acquired hypothyroidism Take 137 mcg by mouth before breakfast. 90 tablet 3 4 025 Active pantoprazole (ProtoNix) 40 MG EC [...] 6 hours as needed 18 g 3 5 Active betamethasone, augmented, (Diprolene AF) 0.05 % creamIndications:A llergic contact dermatitis due to other agents Apply topically 2 times daily. 15 g 2 5 Active Active Problems Problem Noted Date Diagnosed [...] Encounters Date Type Department Care Team Description 05/12/2025 Patient Outreach [facility] [address] [place] [address] Sarah Bradley MD Care Coordination (C3/CM F/u) 04/29/2025 Orders Only GENERIC EXTERNAL DATA DEPARTMENT Provider, Generic External Data 04/25/2025 Patient Outreach [facility] [address] [place] [address] Sarah Bradley MD 04/10/2025 Patient Outreach [facility] [address] [place] [address] Sarah Bradley MD Care Coordination (C3/CM F/U) 2025 Patient Outreach [facility] MEDICINE [address] [place] [phone] Sarah Bradley MD Care Management (C3CM- F/U call # 1) 03/26/2025 Patient Outreach [facility] [address] [place] [address] Sarah Bradley MD Care Coordination (C3/CM F/U) 03/25/2025 1:15 PM EDT Office Visit [facility] MEDICINE [address] [place] [phone] Sarah Bradley MD 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 (Primary Dx); Prediabetes; Severe major depression, single episode, without psychotic features (CMS/HCC); Uncomplicated asthma, unspecified asthma severity, unspecified whether persistent; Hypokalemia; Status post bariatric surgery 03/25/2025 Travel 03/24/2025 Orders Only GENERIC EXTERNAL DATA DEPARTMENT Provider, Generic External Data 03/24/[address] [address] Sarah Bradley MD Chart Prep 03/19/2025 Orders Only GENERIC EXTERNAL DATA DEPARTMENT Provider, Generic External Data 03/12/2025 Patient Outreach [facility] [address] [place], [place] [phone] Sarah Bradley MD 03/10/2025 Orders Only GENERIC EXTERNAL DATA DEPARTMENT Provider, Generic External Data 03/10/2025 Patient Outreach [address] [address] Sarah Bradley MD Transition Of Care (Tcm) (HDF scheduled and SDOH screening completed on 12/20/24 ) 03/10/[address] [address] Sarah Bradley MD Hospital Follow-up 03/06/2025 Orders Only GENERIC EXTERNAL DATA DEPARTMENT Provider, Generic External Data 03/03/2025 Patient Outreach [address] [address] Sarah Bradley MD Care Management ([facility]- F/U call # 1/LVM) 02/28/2025 11:30 AM EDT Office Visit [facility] OPTOMETRY [address] [place] [address] Nehemias, Katy, OD Myopia of both eyes (Primary Dx) 02/23/2025 Orders Only GENERIC EXTERNAL DATA DEPARTMENT Provider, Generic External Data 02/17/2025 Plan of Care Documentation [address] [phone] 02/12/2025 Patient Outreach [address] [address] Sarah Bradley MD Care Management (C3- Initial assessment/enrollme nt) 02/11/2025 Patient Outreach [facility] [address] [place], [place] [phone] Sraah Bradley MD Care Coordination (C3/CM Appt reminder) from Last 3 Months Immunizations Immunization Administration [...] 11/27/2020 Dental X-Ray: Full Mouth 11/29/2023 11/27/2020, 1102/2008 Dental X-Ray: Bitewings 03/03/2024 03/02/20 23, 02/09/2023, 11/27/2020, Additional history exists COVID-19 Vaccine ( season) 2025 08/24/2021 Influenza Vaccine (#1) 2025 , 11/12/2019, [...] Screening 03/25/2026 03/25/2025 Lipid Panel 09/30/2029 09/30/2024, 051 05/2023, 09/01/2020 DTaP/Tdap/Td Vaccines (4 - Td [...] METABOLIC PANEL Routine 02/23/2025 5:26 PM EDT LIPID PANEL, STANDARD Routine 09/30/2024 9:07 AM [...] included. Sodium 139 135 - 145 mmol/L [facility] Potassium 3.7 3.3 - 5.1 mmol/L [facility] Chloride 108 96 - 108 mmol/L [facility] Carbon Dioxide 25 22 - 29 mmol/L [facility] Anion Gap 10(L) 12 - 20 [facility] Urea Nitrogen (BUN) 15 9 - 16 mg/dL [facility] Creatinine, Serum 0.64 0.5 - 1.4 mg/dL [facility] Estimated Glomerular Filt Rate >60 [facility] Comment:Chronic Kidney Disea se: Estimated GFR < 60 mL/min/[id number] Kidney Disease: Estimated GFR < 15 mL/min/1.73m2 Glucose 91 60 - 115 mg/dL [facility] Calcium 8.8 8.4 - 10.2 mg/dL [facility] 04/29/2025 11:5 5 AM EDT 04/29/2025 11:55 AM EDT us Generic External Data Provider LAB BLOOD ORDERAB LES Final Result [facility] [address] [place] [phone] * POCT HGB A1C (03/25/2025 1:35 PM EDT) Hemoglobin A1C 5.0 4.0 - 5.7 % QC Media Lot # [id number] Lot# Expiration Date 402 Blood 03/25/2025 1:35 PM EDT Sarah Galdamez MD POINT OF CARE TEST EN TER/EDIT ORDERABLES Final Result * POCT Glucose (03/25/2025 1:34 PM EDT) Glucose Blood, POC 82 60 - 200 mg/dL QC Media Lot # [id number] Lot# Expiration Date ,738,302 Blood Capillary blood specimen / Unknown 03/25/2025 1:34 PM EDT Sarah Galdamez MD POINT OF CARE TEST EN TER/EDIT ORDERABLES Final Result * Other Reference Test - Misc (03/24/2025 9:21 AM EDT) 03/24/2025 9:21 AM EDT 03/24/2025 10:08 AM EDT Narrative [facility] - 04/04/2025 2:05 PM EDT Urine diuretic screening CODE 48064 us Generic External Data Provider LAB BLOOD ORDERAB LES Final Result Performing Organization Address City/[facility]/ZIP Co de Phone Number [facility] [address] [place] [phone] * (ABNORMAL) Aldosterone/Plasma Renin Activity Ratio, LC/MS/MS (03/10/2025 10:24 AM EDT) Aldosterone 24 see note ng/dL [facility] Comment:Unable to flag abnor mal result(s), please refer to reference range(s) below:Adult Reference Ranges for Aldosterone, LC/MS/MS: Upright 8:00 - 10:00 am < or = 28 ng/dL Upright 4:00 - 6:00 pm < or = 21 ng/dL Supine 8:00 - 10:00 am 3 - 16 ng/dLTHIS TEST WAS PERFORMED AT:[employer] [id number] [place] [address]HXBITAAMEERA RAYMOND MD,PHD Plasma Renin Activity 6.13(A) 0.25 - 5.82 ng/mL/h [facility] Aldosterone/Renin Ratio 3.9 0.9 - 28.9 Ratio [facility] Comment:This test was develo ped and its analytical performancecharacteristics have been determined by [email or web address] [place], [place]. It hasnot been cleared or approved by the U.S. Food and DrugAdministration. This assay has been validated pursuantto the CLIA regulations and is used for clinicalpurposes.THIS TEST WAS PERFORMED AT:[employer] [place] [address]VGEWTEGMEERA RAYMOND MD,PHD 03/10/2025 10:2 4 AM EDT 03/10/2025 10:24 AM EDT us Generic External Data Provider LAB BLOOD ORDERAB LES Final Result Performing Organization Address City/[facility]/ZIP Co de Phone Number [facility] [address] [place] [phone] * Osmolality, Serum (03/06/2025 10:49 AM EDT) Osmolality (Serum) 294 281 - 305 mosm/kg [facility] 03/06/2025 10:4 9 AM EDT 03/06/2025 10:49 AM EDT us Generic External Data Provider LAB BLOOD ORDERAB LES Final Result [facility] [address] [place] [phone] * CT Abdomen Pelvis w/ Contrast (02/23/2025 8:18 PM EDT) Anatomical Region Laterality Modality Body, Pelvis, Abdomen Computed T omography 02/23/2025 8:18 PM EDT Narrative 02/23/2025 8:19 PM EDT [address] [address] [address] Scan Report Signed Patient: Sarah Sheikh I MR#: [id number] : 1985 Acct:[id number] Age/Sex: 39 / F ADM Date: 02/23/25 Loc: .ED Attending Dr: Ordering Physician: Brie Samayoa Date of Service: 02/23/25 Procedure(s): CT abdomen pelvis w IV con Accession Number(s): [id number] cc: Sarah Bradley MD; Brie Samayoa Report Number: [id number]: Total DLP = 462.00 mGy-cm CLINICAL HISTORY: abd pain, s p gastric bypass CT abdomen and pelvis with contrast Comparison: CT/OK/SR - CT ABDOMEN PELVIS WO IV CON [...] in OV> 02/23/252018 DD/ 17 TD/TT: 02/23/252017 Strategic Consultant: Procedure Note Donotuseinterpreter, Image - 02/23/[address] [place] [address] [address] Scan Report Signed Patient: Sarah Sheikh IMR#: [id number] : 1985Acct:[id number] Age/Sex: 39 / FADM Date: 02/23/25 Loc: HO.ED Attending Dr: Ordering Physician: Brie Samayoa Date of Service: 02/23/25 Procedure(s): CT abdomen pelvis w IV con Accession Number(s): [id number] cc: Sarah Bradley MD; Brie Samayoa Report Number: [id number]: Total DLP = 462.00 mGy-cm CLINICAL HISTORY: abd pain, s p gastric bypass CT abdomen and pelvis with contrast Comparison: CT/OK/SR - CT ABDOMEN PELVIS WO IV CON [...] in OV> 02/23/252018 DD/ 17 TD/TT: 02/23/252017 Strategic Consultant: us [facility] External Provider IMG CT PROCEDURES Edited Result - Final * (ABNORMAL) Urinalysis, Complete, with Reflex to Culture (02/23/2025 5:42 PM EDT) Color Urine Dark Yellow [facility] Appearance Urine Turbid [facility] PH 6.5 5.0 - 9.0 [facility] Glucose Urine UA Negative Negative mg/dL [facility] Urine Blood Negative Negative [facility] Specific [place] - Urine >=1.030(H) 1.005 - 1.025 [facility] Urine Protein 100 (2+)(A) Neg-Trace mg/dL [facility] Urine Ketones >=160 Negative mg/dL [facility] Nitrite Urine Negative Negative [facility] Leukocyte Esterase Urine Trace(A) Negative [facility] RBC Urine 3-5(A) 0 - 2 /HPF [facility] Urine WBC 6-10(A) 0 - 5 /HPF [facility] Urine Squamous Epithelial Cell >20 0 - 2 /HPF [facility] Other Crystals Urine Present [facility] Urine Bacteria 3+ None Seen [facility] Hyaline Casts, Urine 3-5 0 - 2 /LPF [facility] 02/23/2025 5:42 PM EDT 02/23/2025 5:52 PM EDT Narrative [facility] - 02/23/2025 6:15 PM EDT Urine, Clean Catch us Generic External Data Provider LAB URINE ORDERAB LES Final Result [facility] [address] [place] [address] [phone] * (ABNORMAL) CBC auto differential (02/23/2025 5:26 PM EDT) White Blood Count 5.4 4.8 - 10.8 X10*3/uL [facility] Red Blood Count 4.88 4.20 - 5.50 X10*6/uL [facility] Hemoglobin 13.3 12.0 - 16.0 g/dl [facility] Hematocrit 39.2 37.0 - 47.0 % [facility] Mean Corpuscular Volume 80.3 80.0 - 98.0 fL [facility] Mean Corpuscular Hemoglobin 27.3 27.0 - 33.0 pg [facility] Mean Corpuscular HGB Conc 33.9 31.0 - 35.0 g/dl [facility] Red Cell Distribution Width 18.1(H) 11.0 - 16.0 % [facility] Platelet Count 182 160 - 400 X10*3/uL [facility] Mean Platelet Volume 12.0 9.4 - 12.3 fL [facility] Neutrophils Percent Auto 60.2 45 - 73 % [facility] Imm Gran Pct Auto 0.4 0.0 - 0.4 % [facility] Lymphocytes Percent Auto 26.6 20 - 40 % [facility] Monocytes Percent Auto 9.8 2 - 11 % [facility] Eosinophils Percent Auto 2.4 0 - 4 % [facility] Basophils Percent Auto 0.6 0 - 2 % [facility] NRBC Pct Auto 0.0 0.0 - 0.2 /100WBC [facility] Neutrophils Absolute Auto 3.3 2.0 - 8.3 x10*3/uL [facility] Imm Gran Abs Auto 0.02 0.00 - 0.03 X10*3/uL [facility] Lymphocytes Absolute Auto 1.4 1.2 - 4.9 X10*3/uL [facility] Monocytes Absolute Auto 0.5 0.1 - 1.2 X10*3/uL [facility] Eosinophils Absolute Auto 0.1 0.0 - 0.4 X10*3/uL [facility] Basophils Absolute Auto 0.0 0.0 - 0.2 X10*3/uL [facility] NRBC Abs Auto 0.000 0.0 - 0.012 X10*3/uL [facility] 02/23/2025 5:26 PM EDT 02/23/2025 5:31 PM EDT us Generic External Data Provider LAB BLOOD ORDERAB LES Final Result Performing Organization Address [facility] Co de Phone Number [facility] [address] [place] [phone] [phone] * hCG, Total, Quantitative (02/23/2025 5:26 PM EDT) HCG Quantitative <2 mIU/mL [facility] Comment:Weeks post LMP Appro ximate hCG(Last Menstrual Period) Range (mIU/ml)3 - 4 weeks 9 - 1304 - 5 weeks 75 - 2,6005 - 6 weeks 850 - 20,8006 - 7 weeks 4000 - 100,2007 - 12 weeks 11,500 - 289,63221 - 16 weeks 18,300 - 137,61204 - 29 weeks (2nd trimester) 1,400 - 53,22846 - 41 weeks (3rd trimester) 940 - [...] ORDERAB LES Final Result Performing Organization Address City/[facility]/ZIP Co de Phone Number [facility] [address] [place] [phone] [phone] * Magnesium (02/23/2025 5:26 PM EDT) Magnesium 1.8 1.6 - 2.6 mg/dL [facility] 02/23/2025 5:26 PM EDT 02/23/2025 5:31 PM EDT us Generic External Data Provider LAB BLOOD ORDERAB LES Final Result Performing Organization Address City/[facility]/ZIP Co de Phone Number [facility] [address] [place] [phone] * (ABNORMAL) Lipase (02/23/2025 5:26 PM EDT) Lipase 116(H) 8 - 78 U/L [facility] 02/23/2025 5:26 PM EDT 02/23/2025 5:31 PM EDT Generic External Data Provider LAB BLOOD ORDERAB LES Final Result Performing Organization Address [facility]/ZIP Co de Phone Number [facility] [address] [place] [phone] * (ABNORMAL) Comprehensive Metabolic Panel (02/23/2025 5:26 PM EDT) Sodium 142 135 - 145 mmol/L [facility] Potassium 2.6(LL) 3.3 - 5.1 mmol/L [facility] Comment:Critical value for t est(s): POTS Results called to and readback by: [facility] Person calling: [email or web address] Date: 02/23/25Time:1759 Chloride 106 96 - 108 mmol/L [facility] Carbon Dioxide 20(L) 22 - 29 mmol/L [facility] Anion Gap 19 12 - 20 [facility] Urea Nitrogen (BUN) 10 9 - 16 mg/dL [facility] Creatinine, Serum 0.64 0.5 - 1.4 mg/dL [facility] Creatinine Clr Calc Pharmacy 98.9 [facility] Comment:Provided height and weight: 149.86 cm,65.317 kg.eGFR (calculated from the MDRD study equation) and eCrCl(calculated from the Cockcroft-Gault equation) are based ondifferent parameters and may not yield comparable results.If eCrCl result is absurd, please check patient'sheight/weight. Estimated Glomerular Filt Rate >60 [facility] Comment:Chronic Kidney Disea se: Estimated GFR < 60 mL/min/1.92i2Irnafz Kidney Disease: Estimated GFR < 15 mL/min/1.73m2 Glucose 102 60 - 115 mg/dL [facility] Calcium 9.4 8.4 - 10.2 mg/dL [facility] Bilirubin, Total 0.5 0.0 - 1.0 mg/dL [facility] Aspartate Amino Transferase 17 5 - 31 U/L [facility] Alanine Aminotransferase 14 0 - 31 U/L [facility] Total Protein 7.9 6.5 - 8.0 g/dL [facility] Albumin Level 4.6 3.5 - 5.0 g/dL [facility] Alkaline Phosphatase 64 39 - 117 U/L [facility] 02/23/2025 5:26 PM EDT 02/23/2025 5:31 PM EDT us Generic External Data Provider LAB BLOOD ORDERAB LES Final Result [facility] [address] [place] [phone] [phone] * (ABNORMAL) Lipid Panel, Standard (09/30/2024 9:07 AM EST) Triglycerides 150(H) <150 mg/dL [facility] Comment:Desirable Triglyceri de: less than 150 mg/dLBorderline High Triglyceride 150-199 mg/dLHigh Triglyceride: 200-499 mg/dLVery High Triglyceride: greater than or equal to 5OO mg/dL Cholesterol 170 <200 mg/dL [facility] Comment:Desirable Cholestero l: less than 200 mg/dLBorderline High Cholesterol: 200-239 mg/dLHigh Cholesterol: greater than 239 mg/dL LDL Cholesterol Calculated 101(H) <100 mg/dL [facility] Comment:Desirable LDL: less than 100 mg/dLNear Optimal/Above Optimal LDL: 110- 129 mg/dLBorderline High LDL: 130-159 mg/dLHigh LDL: 160-189 mg/dLVery High LDL: greater than or equal to 190 mg/dL HDL Cholesterol 39(L) >40 mg/dL [facility] Comment:Desirable HDL: great er than 40 mg/dL Note: This HDL assay may give artificially low results in patients with liver disease. 09/30/2024 9:07 AM EST 09/30/2024 9:07 AM EST us Generic External Data Provider LAB BLOOD ORDERAB LES Final Result Performing Organization Address City/[facility]/ZIP Co de Phone Number [facility] [address] [place] [phone] * Hm Pap Smear (02/21/2023) Historical Provider MD HEALTH MAINTENANCE Final Result * HPV E6/E7 RFLX CLAIRE 16 18/45 (12/08/2021 10:43 AM EDT) HPV mRNA E6/E7 rflx Not Detected Not Detected [facility] Comment: Methodology: Director Underwriter Sales-Mediated Amplification This assay detects E6/E7 viral messenger RNA (mRNA) from 14 high-risk HPV types (16,18,31,33,35,39,45,51,52,56,58,59,66,68). The analytical performance characteristics of this assay have been determined by [employer]. The modifications have not been cleared or approved by the FDA. This assay has been validated pursuant to the CLIA regulations and is used for clinical purposes. For additional information, please refer to http://education.enavu/faq/CXL307i0 (This link if provided for information/ educational purposes only.) THIS TEST WAS PERFORMED AT: [employer] [address] [place] [address] [address]LO[address],[place] [address] KLAUS BRASHER MD 12/08/2021 10:4 3 AM EDT us Laine Zamora HISTORICAL/NON ORDERABLE LABS Fi nal Result [facility] Formerly [facility] [address] * HEPATITIS C ANTIBODY (11/16/2019 10:03 AM EDT) HEPATITIS C ANTIBODY [facility] Comment: Antibodies to HCV not detected; does not exclude early acute HCV infection. 11/16/2019 10:0 3 AM EDT Laine Zamora HISTORICAL/NON ORDERABLE LABS Fi nal Result Performing Organization Address [facility] Number [facility] [address] * HIV AB/AG (11/16/2019 10:03 AM [...] of detection of this assay. The [employer] Spindle [employer]ester HIV Ag/Ab Combo assay result and supplemental assay results should be interpreted in conjunction with the patient's clinical presentation, history and other laboratory results. If the results are inconsistent with clinical evidence, additional testing is suggested to confirm the result. 11/16/2019 10:0 3 AM EDT Laine Riverooney HISTORICAL/NON ORDERABLE LABS Fi nal Result Performing Organization Address [facility] Phone Number [facility] Formerly [facility] [address] from Last 3 Months or Most Recently Relevant to Health Maintenance Insurance [facility] AD[place] Care Teams Hotel Front Desk Agent Relationship Specialty Start Date End Date Sarah Bradley MD [address] [place] [address] PCP - General Family Medicine 06/22/18 Bruce Cruz, RN [address] [place] [address] Registered Nurse Family Medicine 01/15/25 Veronica Preston 01/15/25 Aisha Savage Body Service Team MemberDry Cell Assembly Supervisor 04/11/24
--- OUTSIDE RECORDS SUMMARY | 2025-05-13 09:49 | XMS_ITS | Encounter Summary ---
Author Organization [employer] Address [address] [facility] 7t [place] [address] Care Team Providers Care Tribal Delegate Name Role Phone Sarah Bradley MD Primary Care Provide r Bruce Cruz RN Unavailable [phone] Veronica Preston Unavailable Reason for Visit * Reason Onset Date Comments Hospital Follow-up 03/10/2025 Encounter Details Date Type Department Care Team ([facility] st Contact Info) Description 03/10/2025 Telephone [facility] MED[facility] [address] [place], [place] [phone] Sarah Bradley MD [address] [place], [place] [phone] Hospital Follow-up Social History Tobacco Use Types [...] the past 12 months, has t he [employer], gas, oil or water company threatened to [...] from pt requesting a HDF appt. Hospital: [facility] Date of admission: 02/23 Discharge date: 02/26 Diagnosed: gastritis *Send message to [place] Clinical Care Coordinators Contact pt at [phone] (guinean) documented in this encounter Plan of Treatment Not on file documented as of this encounter Visit Diagnoses Not on filedocumented in this encounter Additional Health Concerns Assessment Noted Time PHQ-9 Depression Total Score: 2 02/13/20 25 2:23 PM EDT documented as of this encounter Care Teams Tribal Delegate Relationship Specialty Start Date End Date Sarah Bradley MD [address] [place] [address] PCP - General Family Medicine 06/22/18 Bruce Cruz, MIQUEL [address] [place] [phone] Registered Nurse Family Medicine 01/15/25 Veronica Preston 01/15/25 Aisha Savage Fur SewerCargo Surveyor 04/11/24 documented as of this encounter
--- OUTSIDE RECORDS SUMMARY | 2025-05-13 09:50 | XMS_ITS | Encounter Summary ---
Author Organization [employer] Address [address] [facility] [address] 7t [place] [address] Care Team Providers Care Professor Of Medicine Name Role Phone Sarah Bradley MD Primary Care Provide r Bruce Cruz RN Unavailable [phone] Veronica Preston Unavailable Encounter Details Date Type Department Care Team (Late st Contact Info) Description 03/22/2023 Orders Only [facility] MEDICINE 230 [place] [address] Provider, MD Yessi Social History Tobacco Use [...] documented as of this encounter Care Teams Professor Of Medicine Relationship Specialty Start Date End Date Sarah Bradley MD [address] [place] [address] PCP - General Family Medicine 06/22/18 Bruce Cruz, MIQUEL [address] [place] [address] Registered Nurse Family Medicine 01/15/25 Veronica Preston 01/15/25 Aisha Savage Sap Business Intelligence ConsultantNurse Practitioner Hospitalist 04/11/24 documented as of this encounter
--- OUTSIDE RECORDS SUMMARY | 2025-05-13 09:50 | XMS_ITS | Encounter Summary ---
Author Organization [employer] Address [address] [facility] [address] 7t [place] [address] Care Team Providers Care Diesel Maintenance Electrician Name Role Phone Sarah Bradley MD Primary Care Provide r Bruce Cruz RN Unavailable [phone] Veronica Preston Unavailable Encounter Details Date Type Department Care Team ([facility] st Contact Info) Description 07/26/2024 Telephone [facility] MEDICINE 230 [place] [address] Sarah Bradley MD 230 [place], [place] [phone] Social History Tobacco Use Types Packs/Day Years [...] documented as of this encounter Care Teams Diesel Maintenance Electrician Relationship Specialty Start Date End Date Sarah Bradley MD 230 [place] [address] PCP - General Family Medicine 06/22/18 Bruce Cruz, RN [address] [place] [address] Registered Nurse Family Medicine 01/15/25 Veronica Preston 01/15/25 Aisha Savage Director Corporate ComplianceJob Checker 04/11/24 documented as of this encounter
--- OUTSIDE RECORDS SUMMARY | 2025-05-13 09:50 | XMS_ITS | Encounter Summary ---
Author Organization [employer] Address 75 [facility] 7t [place] [address] Care Team Providers Care Medical Office Clerk Name Role Phone Sarah Bradley MD Primary Care Provide r Bruce Cruz RN Unavailable [phone] Veronica Preston Unavailable Encounter Details Date Type Department Care Team (Late st Contact Info) Description 03/22/2023 Abstract [facility] MEDICINE 230 [place] [address] Sarah Bradley MD 230 [place] [address] Social History Tobacco Use Types Packs/Day Years [...] as of this encounter Care Teams Medical Office Clerk Relationship Specialty Start Date End Date Sarah Bradley MD 230 [place] [address] PCP - General Family Medicine 06/22/18 Bruce Cruz, MIQUEL [address] [place] [address] Registered Nurse Family Medicine 01/15/25 Veronica Preston 01/15/25 Aisha Savage Business Management ProfessorIncident Analyst 04/11/24 documented as of this encounter
--- OUTSIDE RECORDS SUMMARY | 2025-05-13 09:50 | XMS_ITS ---
Author Organization [employer] Address [address] [place] [address] 7 [place] [address] Care Team Providers Care Production Support Manager Name Role Phone Sarah Bradley MD Primary Care Provide r Bruce Cruz RN Unavailable [phone] Veronica Preston Unavailable CHW Complex Status:Enrolled (Active) Start date:01/15/2025 Enrollment date:03/12/2025 Enrollment reason:ADT Feed Overview ADT- Pt admitted to [facility] on 01/14/25. Case Team Name Relationship Phone Veronica Preston(Responsible Staff) [phone] Continued Care and Services Coordination
--- OUTSIDE RECORDS SUMMARY | 2025-05-13 09:50 | XMS_ITS | Clinical Summary ---
Author Organization [employer] [facility] ity Address [address] [place] [address] Care Team Providers Care Salesperson Art Objects Name Role Phone Unavailable Primary Care Provider [...] Cervical Cancer Screening: P ap Smear 2008 Depression Screening 09/04/2024 COVID-19 Vaccine (1 - 2023-2 5 season) 2025 Influenza Vaccine (#1) 2025 HIB Vaccines Aged [...]
--- OUTSIDE RECORDS SUMMARY | 2025-05-13 09:50 | XMS_ITS | Encounter Summary ---
Author Organization [employer] Address [address] [place] [address] 7t [place] [address] Care Team Providers Care Cylinder Press Operator Apprentice Name Role Phone Sarah Bradley MD Primary Care Provide r Bruce Cruz RN Unavailable [phone] Veronica Preston Unavailable Encounter Details Date Type Department Care Team (Late st Contact Info) Description 06/07/2023 Abstract [facility] MEDICINE 230 [place] [address] Sarah Bradley MD 230 [place] [address] Social History Tobacco Use Types Packs/Day Years [...] documented as of this encounter Care Teams Cylinder Press Operator Apprentice Relationship Specialty Start Date End Date Sarah Bradley MD 230 [place] [address] PCP - General Family Medicine 06/22/18 Bruce Cruz, RN 505 [place] [address] Registered Nurse Family Medicine 01/15/25 Veronica Preston 01/15/25 Aisha Savage Vocal Music InstructorBlender Operator 04/11/24 documented as of this encounter
--- OUTSIDE RECORDS SUMMARY | 2025-05-13 09:50 | XMS_ITS | Encounter Summary ---
Author Organization [employer] Address [address] [facility] [address] 7t [place] [address] Care Team Providers Care Cylinder Worker Name Role Phone Sarah Bradley MD Primary Care Provide r Bruce Cruz RN Unavailable [phone] Veronica Preston Unavailable Reason for Visit * Reason Onset Date Comments PT1 03/22/2024 Encounter Details Date Type Department Care Team ([facility] st Contact Info) Description 03/22/2024 Telephone [facility] MEDICINE 230 [place], [place] [phone] Sarah Bradley MD 230 [place], [place] [phone] PT1 Social History Tobacco Use Types Packs/Day [...] Y/N: Yes Provider name or facility name: [facility] Facility Address: [address] [place] [address] Escort needed: Y/N: No Do you have [...] as of this encounter Care Teams Cylinder Worker Relationship Specialty Start Date End Date Sarah Bradley MD 230 [place] [address] PCP - General Family Medicine 06/22/18 Bruce Cruz RN [address] [place] [address] Registered Nurse Family Medicine 01/15/25 Veronica Preston 01/15/25 Aisha Savage Tower Crane OperatorLine Haul Owner Operator 04/11/24 documented as of this encounter
--- OUTSIDE RECORDS SUMMARY | 2025-05-13 09:50 | XMS_ITS | Encounter Summary ---
Author Organization [employer] Address 75 [facility] 7t [place] [address] Care Team Providers Care Vegetable Tester Name Role Phone Sarah Bradley MD Primary Care Provide r Bruce Cruz RN Unavailable [phone] Veronica Preston Unavailable Reason for Visit * Reason Comments Care Coordination C3/CM F/u Encounter Details Date Type Department Care Team (Latest Contact Info) Description 05/12/2025 Patient Outreach [facility] 505 [place] [address] Sarah Bradley MD 230 [place] [address] Care Coordination (C3/CM F/u) Social History Tobacco Use Types Packs/Day Years [...] the past 12 months, has t he [employer], Tagged, oil or water [facility] threatened to shut off services in your [...] of this encounter Progress Notes * Veronica Prestno - 05/12/2025 10:32 AM EDT CHW Veronica Preston placed outbound call to patient for follow up call on SDOH needs. No answer at this time. LVM introducing herself from [facility] CM Department. Requested call back. CHW reinforced direct contact information [phone] or CM for any additional questions or concerns and extended clinic hours on Mondays and Wednesdays, and Walk-In Urgent Care Located in [facility]. Patient provided with after-hours line for [facility], , which offer night timetriage service and option to transfer to partition assembly machine operator provider if needed. CHW will attempt another follow up call within 10 days. documented in this encounter Plan of Treatment Not on file documented as of this encounter Visit Diagnoses Not on filedocumented in this encounter Additional Health Concerns Assessment Noted Time PHQ-9 Depression Total Score: 2 02/13/20 25 2:23 PM EDT documented as of this encounter Care Teams Vegetable Tester Relationship Specialty Start Date End Date Sarah Bradley MD [address] [place] [address] PCP - General Family Medicine 06/22/18 Bruce Cruz, MIQUEL [address] [place] [address] Registered Nurse Family Medicine 01/15/25 Veronica Preston 01/15/25 Aisha Savage Drum BuilderHand Packer 04/11/24 documented as of this encounter
--- OUTSIDE RECORDS SUMMARY | 2025-05-13 09:50 | XMS_ITS ---
Author Organization [employer] Address 75 [facility] 7 [place] [address] Care Team Providers Care Dental Instrument Maker Name Role Phone Sarah Bradley MD Primary Care Provide r Bruce Cruz RN Unavailable [phone] Veronica Preston Unavailable CM Complex Status:Enrolled (Active) Start date:01/15/2025 Enrollment date:02/12/2025 Enrollment reason:ADT Feed Overview ADT- Pt admitted to [facility] on 01/14/25. Case Team Name Relationship Phone Bruce Cruz RN(Responsible Staff) Registered Jus dao [phone] Continued Care and Services Coordination
[2025-05-13 10:28] LABS: Parathyroid Hormone Intact 51.7 pg/mL (8.7-77.1)
[2025-05-13 11:01] LABS: Anion Gap 12 (12-20); Calcium 8.6 mg/dL (8.4-10.2); Carbon Dioxide 27 mmol/L (22-29); Chloride 106 mmol/L (96-108); Magnesium 2.0 mg/dL (1.6-2.6); Potassium 3.5 mmol/L (3.3-5.1); Sodium 141 mmol/L (135-145)
== END 2025-05-13 08:42 | disposition home or self-care (01) ==
LOC: HO.LAB 08:41
PROVIDERS: PCP Internal Medicine; Visit Provider Internal Medicine Nephrology
DX: I10 Essential (primary) hypertension (principal); E87.6 Hypokalemia
CPT/HCPCS: 36415; 80051; 82310; 83735; 83970

== ENCOUNTER 2025-05-14 13:59 | Outpatient (AMB) | payer MEDICAID, SELFPAY ==
--- NOTE | 2025-05-14 13:59 | HO.NEPHOV_ITS ---
Vital Signs 05/14/25 14:00 Height 4 ft 11 in Weight 135 lb 4 oz BMI 27.3 BP 128/80 Blood Pressure Location Lt brachial Position Sitting Pulse 72 Pulse Source Pulse Oximeter Pulse Oximetry (%) 100 Oxygen Delivery Method Room Air Intake Visit Reasons: 2wk f/u w/labs-Conf Industrial Conveyor Belt Repairer Required: Yes Industrial Conveyor Belt Repairer Language: Ring Stamper Services: Industrial Conveyor Belt Repairer Present Industrial Conveyor Belt Repairer Name: Kirill Arroyo Information Interpreted: clinical only Accompanied by: Self / Same As Patient Allergies latex (LATEX) Allergy (Intermediate, Verified 05/14/25 14:00) HANDS SWELL HPI Comments Details: 39 y/o female with a medical history of gastric sleeve surgery (reports on 01/14/25), HTN with H/O chronic hypokalemia here for routine follow up. States she is feeling well. She has been taking oral potassium supplementation as prescribed but was not taking spironolactone as prescribed. she denies pain, nausea, vomiting or diarrhea. patient denies use of prescribed/non-prescribed diuretics. Her urine diuretic screen was negative. She has no weakness nor has any systemic complaints at the time of this visit. [facility] Medical History BMI 37.0-37.9, adult Encounter for IUD removal Cervical cancer screening Prediabetes IUD check up Encounter for IUD insertion Left breast lump Well woman exam Family planning Hx of transfusion of packed red blood cells Migraine Seizures Non-insulin dependent type 2 diabetes mellitus Sleep apnea treated with continuous positive airway pressure (CPAP) Hypothyroidism Elevated cholesterol Obesity (BMI 30-39.9) Supraumbilical hernia HTN (hypertension) Anemia History of hypothyroidism Diastasis recti Depression Asthma GERD (gastroesophageal reflux disease) Surgical History S/P laparoscopic sleeve gastrectomy History of esophagogastroduodenoscopy (EGD) Hx of section History of umbilical hernia repair (05/13/19) Family History Father No problems noted. Mother HTN (hypertension) Asthma Hyperthyroidism Diabetes Paternal Aunt Breast cancer Son Asthma Son Asthma ADHD Son Asthma Daughter Autism Social History Household Members: Spouse Housing: Apartment Are you a primary home care assistant to a significant other at home: No Do you presently have visiting nurse or other home services: No Alcohol intake: former Comment: Patient gait and balance are steady. Patient Tobacco Use Status: Never used Tobacco service: No Sexual orientation: Straight/Heterosexual Gender identity: Female Female Reproductive History Menstrual Age of Menarche: 13 Review of Systems Const All systems reviewed & are unremarkable except as noted in HPI and below Physical Exam Vital Signs: Last Vital Signs Pulse 72 05/14/25 14:00 BP 128/80 05/14/25 14:00 Pulse Ox 100 05/14/25 14:00 Oxygen Delivery Method Room Air 05/14/25 14:00 BMI result Body Mass Index 27.3 Const General: comfortable and no acute distress Orientation/consciousness: patient oriented x3 HEENT Head: Yes normocephalic Mouth: Normal oral and palatal mucosa present Eyes EOM: EOMs intact bilaterally Neck Neck: Yes supple Resp Auscultation: clear to auscultation bilaterally Cardio Jugular venous distension: no JVD Rate: regular rate GI Palpation (GI): Soft to palpation Auscultation: normal bowel sounds General: Yes no CVA tenderness Back/Spine/Pelvis Back: no CVA tenderness Skin General skin exam: no rashes or lesions noted Neuro General: patient oriented x3 and moves all extremities Extrem General: Yes no pedal edema Results Reviewed Nephrology Results: Sodium, (135-145) 141 mmol/L 05/13/25 Potassium, (3.3-5.1) 3.5 mmol/L 05/13/25 Chloride, (96-108) 106 mmol/L 05/13/25 Carbon Dioxide, (22-29) 27 mmol/L 05/13/25 BUN, (9-16) 15 mg/dL 04/29/25 Creatinine, (0.5-1.4) 0.64 mg/dL 04/29/25 Calcium, (8.4-10.2) 8.6 mg/dL 05/13/25 PTH Intact, (8.7-77.1) 51.7 pg/mL 05/13/25 Assessment & Plan Assessment & Plan (1) HTN (hypertension): Code(s): I10 - Essential (primary) hypertension Category: Medical Qualifiers: Hypertension type: primary hypertension Qualified Code(s): I10 - Essential (primary) hypertension (2) Hypokalemia: Code(s): E87.6 - Hypokalemia Category: Medical Plan Has hypokalemia for a long time. Has family H/O ( grandmother) . Urine diuretic screen negative. aldosterone level normal 24, ltfqgwwbofc-kd-tbuzb ratio is normal at 3.9. Likely has tubular wasting. Continued W/U in progress. Discontinued KCl recently . Increased Spironolactone to 25 mg AM and 50 mg PM. F/U labs ordered. Answered all questions. Orders: Orders Blood Urea Nitrogen 1 Month E87.6 - Hypokalemia, I10 - Essential (primary) hypertension Creatinine 1 Month E87.6 - Hypokalemia, I10 - Essential (primary) hypertension Magnesium 1 Month E87.6 - Hypokalemia, I10 - Essential (primary) hypertension Parathyroid Hormone Intact 1 Month E87.6 - Hypokalemia, I10 - Essential (primary) hypertension Electrolytes 1 Month E87.6 - Hypokalemia, I10 - Essential (primary) hypertension Coding Level of Care Code Est Pt Level 4 (69574) Diagnoses Primary hypertension I10 Hypertension type: primary hypertension Hypokalemia E87.6
[2025-05-14 14:00] VITALS: BP 128/80; PULSE 72; O2SAT 100; BMI 27.3
--- OUTSIDE RECORDS SUMMARY | 2025-05-14 17:06 | XMS_ITS | Clinical Summary ---
Author Organization [employer] [facility] ity Address [address] [place] [address] Care Team Providers Care Disassembler Name Role Phone Unavailable Primary Care Provider [...]
== END 2025-05-14 14:14 | disposition home or self-care (01) ==
PROVIDERS: PCP Internal Medicine; Visit Provider Internal Medicine Nephrology
DX: I10 Essential (primary) hypertension (principal); E87.6 Hypokalemia
CPT/HCPCS: 99214

== ENCOUNTER → 2025-05-14 13:59 | Outpatient (BNVA) | payer MEDICAID, SELFPAY | PROVIDERS: PCP Internal Medicine; Visit Provider Internal Medicine Nephrology | DX: I10 Essential (primary) hypertension (principal); E87.6 Hypokalemia | CPT/HCPCS: 99212 ==

== ENCOUNTER 2025-06-17 07:44 | Outpatient (REF) | payer MEDICAID, SELFPAY ==
--- OUTSIDE RECORDS SUMMARY | 2025-06-17 07:47 | XMS_ITS | Clinical Summary ---
Author Organization [employer] [facility] it[facility] Address [address] [place] [address] Care Team Providers Care Banana Carrier Name Role Phone Unavailable Primary Care Provider [...] Cervical Cancer Screening: P ap Smear 2008 HPV Vaccines (1 - 3-dose SCD M series) 2014 Depression Screening 09/04/2024 COVID-19 Vaccine (2023-2 5 season) 2025 Influenza Vaccine (#1) 2025 RSV Immunization Adult Patie nts (1 - 1-dose 75+ series) 2062 HIB Vaccines Aged Out No longer eligi [...]
--- OUTSIDE RECORDS SUMMARY | 2025-06-17 07:47 | XMS_ITS | Encounter Summary ---
Author Organization [employer] Address [address] [place] [address] 7 [place] [address] Care Team Providers Care Eye Glass Frame Polisher Name Role Phone Sarah Bradley MD Primary Care Provide r Bruce Cruz RN Unavailable [phone] Veronica Preston Unavailable Encounter Details Date [...] on filedocumented in this encounter Care Teams Eye Glass Frame Polisher Relationship Specialty Start Date End Date Sarah Bradley MD [address] [place] [address] PCP - General Family Medicine 06/22/18 Bruce Cruz, RN [address] [place] [address] Registered Nurse Family Medicine 01/15/25 05/22/25 Veronica Preston 01/15/25 06/03/25 Aisha Savage Correctional SergeantChief Of Party 04/11/24 documented as of this encounter
--- OUTSIDE RECORDS SUMMARY | 2025-06-17 07:47 | XMS_ITS | Encounter Summary ---
Author Organization [employer] Address [address] [facility] [address] 7t [place] [address] Care Team Providers Care Naval Inspector Name Role Phone Sarah Bradley MD Primary Care Provide r Bruce Cruz RN Unavailable [phone] Veronica Preston Unavailable Reason for Visit * Reason Onset Date Comments PT1 03/22/2024 Encounter Details Date Type Department Care Team ([facility] st Contact Info) Description 03/22/2024 Telephone [facility] MEDICINE 230 [place], [place] [phone] Sarah Bradley MD 230 [place], [place] [phone] PT1 Social History Tobacco Use Types Packs/Day [...] Y/N: Yes Provider name or facility name: [facility] Facility Address: [address] [place] [address] Escort needed: Y/N: No Do you have [...] documented as of this encounter Care Teams Naval Inspector Relationship Specialty Start Date End Date Sarah Bradley MD 230 [place] [address] PCP - General Family Medicine 06/22/18 Bruce Cruz RN [address] [place] [address] Registered Nurse Family Medicine 01/15/25 05/22/25 Veronica Preston 01/15/25 06/03/25 Aisha Savage Manager SapSenior Manufacturing Engineer 04/11/24 documented as of this encounter
--- OUTSIDE RECORDS SUMMARY | 2025-06-17 07:47 | XMS_ITS | Encounter Summary ---
Author Organization [employer] Address 75 [facility] 7t [place] [address] Care Team Providers Care Foot Doctor Name Role Phone Sarah Bradley MD Primary Care Provide r Bruce Cruz RN Unavailable [phone] Veronica Preston Unavailable Encounter Details Date Type Department Care Team (Late st Contact Info) Description 03/22/2023 Abstract [facility] MEDICINE 230 [place] [address] Sarah Bradley MD [address] [place] [address] Social History Tobacco Use Types Packs/Day Years [...] documented as of this encounter Care Teams Foot Doctor Relationship Specialty Start Date End Date Sarah Bradley MD 230 [place] [address] PCP - General Family Medicine 06/22/18 Bruce Cruz, MIQUEL [address] [place] [address] Registered Nurse Family Medicine 01/15/25 05/22/25 Veronica Preston 01/15/25 06/03/25 Aisha Svaage Directory OperatorManager Document 04/11/24 documented as of this encounter
--- OUTSIDE RECORDS SUMMARY | 2025-06-17 07:47 | XMS_ITS | Encounter Summary ---
Author Organization [employer] Address [address] [facility] [address] [place] [address] Care Team Providers Care Area Sales Manager Name Role Phone Sarah rBadley MD Primary Care Provide r Bruce Cruz RN Unavailable [phone] Veronica Preston Unavailable Encounter Details Date Type Department Care Team (Late st Contact Info) Description 03/22/2023 Orders Only [facility] MEDICINE 230 [place] [address] Provider, MD Yessi Social History Tobacco Use [...] documented as of this encounter Care Teams Area Sales Manager Relationship Specialty Start Date End Date Sarah Bradley MD [address] [place] [address] PCP - General Family Medicine 06/22/18 Bruce Cruz, MIQUEL [address] [place] [address] Registered Nurse Family Medicine 01/15/25 05/22/25 Veronica Preston 01/15/25 06/03/25 Aisha Savage Professional DriverBlueprint Reader 04/11/24 documented as of this encounter
--- OUTSIDE RECORDS SUMMARY | 2025-06-17 07:47 | XMS_ITS | Encounter Summary ---
Author Organization [employer] Address [address] [facility] 7t [place] [address] Care Team Providers Care Product Accountant Name Role Phone Sarah Bradley MD Primary Care Provide r Bruce Cruz RN Unavailable [phone] Veronica Preston Unavailable Encounter Details Date Type Department Care Team (Late st Contact Info) Description 01/27/2023 Abstract [facility] MEDICINE 230 [place] [address] Sarah Bradley MD 230 [place] [address] Social History Tobacco Use Types Packs/Day Years [...] documented as of this encounter Care Teams Product Accountant Relationship Specialty Start Date End Date Sarah Bradley MD [address] [place] [address] PCP - General Family Medicine 06/22/18 Bruce Cruz, MIQUEL [address] [place] [address] Registered Nurse Family Medicine 01/15/25 05/22/25 Veronica Preston 01/15/25 06/03/25 Aisha Savage Administration ClerkSpecial Events Manager 04/11/24 documented as of this encounter
--- OUTSIDE RECORDS SUMMARY | 2025-06-17 07:47 | XMS_ITS | Encounter Summary ---
Author Organization [employer] Address [address] [place] [address] 7t [place] [address] Care Team Providers Care Government Auditor Name Role Phone Sarah Bradley MD Primary Care Provide r Bruce Cruz RN Unavailable [phone] Veronica Preston Unavailable Encounter Details Date Type Department Care Team (Late st Contact Info) Description 06/07/2023 Abstract [facility] MEDICINE 230 [place] [address] Sarah Bradley MD 230 [place] [address] Social History Tobacco Use Types Packs/Day Years [...] documented as of this encounter Care Teams Government Auditor Relationship Specialty Start Date End Date Sarah Bradley MD 230 [place] [address] PCP - General Family Medicine 06/22/18 Bruce Cruz, RN 505 [place] [address] Registered Nurse Family Medicine 01/15/25 05/22/25 Veronica Preston 01/15/25 06/03/25 Aisha Savage Staple Processing Machine OperatorProjection Welding Machine Operator 04/11/24 documented as of this encounter
--- OUTSIDE RECORDS SUMMARY | 2025-06-17 07:47 | XMS_ITS | Clinical Summary ---
Author Organization [employer] Address [address] [facility] [address] [place] [address] Care Team Providers Care Optical Manager Name Role Phone Sarah Bradley MD [...] depression, sin gle episode, without psychotic features (CMS/HCC) 09/01/2022 Assessment & Plan (03/25/2025 2:24 PM EDT): Significant improvement, patient is stable now we will continue to monitor Severe obesity (CMS/HCC) 09/01/2022 Allergic rhinitis 08/01/2012 Dyslipidemia 08/01/2012 Verruca plantaris 08/01/2012 Encounters Date Type Department Care Team Description 06/03/2025 Patient Outreach [facility] [address] [place] [address] Sarah Bradley MD Care Coordination (C3/CM F/U) 05/22/2025 Patient Outreach [address] [address] Sarah Bradley MD Care Management (C3CM- follow up call) 05/16/2025 Patient Outreach [facility] [address] [place] [address] Sarah Bradley MD 05/13/2025 Orders Only GENERIC EXTERNAL DATA DEPARTMENT Provider, Generic External Data 05/12/2025 Patient Outreach [facility] [address] [place] [address] Sarah Bradley MD Care Coordination (C3/CM F/u) 04/29/2025 Orders Only GENERIC EXTERNAL DATA DEPARTMENT Provider, Generic External Data 04/25/2025 Patient Outreach [facility] [address] [place] [address] Sarah Bradley MD 04/10/2025 Patient Outreach [facility] [address] [place] [address] Sarah Bradley MD Care Coordination (C3/CM F/U) 2025 Patient Outreach [address] [phone] Sarah Bradley MD Care Management (C3CM- F/U call # 1) 03/26/2025 Patient Outreach [facility] [address] [place] [address] Sarah Bradley MD Care Coordination (C3/CM F/U) 03/25/2025 1:15 PM EDT Office Visit [address] [address] Sarah Bradley MD 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 (Primary Dx); Prediabetes; Severe major depression, single episode, without psychotic features (CMS/HCC); Uncomplicated asthma, unspecified asthma severity, unspecified whether persistent; Hypokalemia; Status post bariatric surgery 03/25/2025 Travel 03/24/2025 Orders Only GENERIC EXTERNAL DATA DEPARTMENT Provider, Generic External Data 03/24/2025 Telephone [facility] [address] [place] [address] Sarah Bradley MD Chart Prep 03/19/2025 Orders Only GENERIC EXTERNAL DATA DEPARTMENT Provider, Generic External Data from Last 3 Months Immunizations Immunization Administration [...] 12/20/2025 12/20/2024 Depression Screening 02/12/2026 02/12/2025, 02/13/20 25 Alcohol/Substance Use Screening 02/17/2026 02/17/2025 Cervical Cancer Screening 02/21/2026 HPV/Cotest 02/21/2026 12/08/2021, 04/0 02/2022, 12/03/2020, Additional history exists Pap Smear 02/21/2026 02/21/2023, 2 , 12/09/2021, Additional history exists Diabetes: Hemoglobin A1C 03/25/2026 025, 09/30/2024, 01/20/2023, Additional history exists Disability Screening 03/25/2026 03/25/2025 Tobacco Screening 03/25/2026 03/25/2025 Lipid Panel 09/30/2029 09/30/2024, 05/05/2023, 09/01/2020 DTaP/Tdap/Td Vaccines (4 - Td or [...] Procedure Name Priority Date/Time Associated Diagnosis Comments MAGNESIUM Routine 05/13/2025 8:53 AM EDT CALCIUM Routine 05/13/2025 8:53 AM EDT ELECTROLYTE PANEL Routine 05/13/2025 8:5 3 AM EDT PTH, INTACT WITHOUT CALCIUM Routine 05/13/2025 8:53 AM EDT BASIC METABOLIC PANEL Routine 04/29/2025 11:55 AM EDT POCT GLYCATED HEMOGLOBIN, TOTAL Routine 03/25/2025 1:35 PM EDT Prediabetes POCT GLUCOSE Routine 03/25/2025 1:34 PM EDT Prediabetes OTHER REF TEST - MISC Routine 03/24/2025 9:21 AM EDT BASIC METABOLIC PANEL Routine 03/19/2025 10:02 AM EDT LIPID PANEL, STANDARD Routine 09/30/2024 9:07 [...] Recently Relevant to Health Maintenance Results * PTH, Intact Without Calcium (05/13/2025 8:53 AM EDT) Parathyroid Hormone, Intact 51.7 8.7 - 77.1 pg/mL [facility] 05/13/2025 8:53 AM EDT 05/13/2025 8:53 AM EDT us Generic External Data Provider LAB BLOOD ORDERAB LES Final Result [facility] [address] [place] [phone] * Magnesium (05/13/2025 8:53 AM EDT) Pathologist [facility] [place] Magnesium 2.0 1.6 - 2.6 mg/dL [facility] 05/13/2025 8:53 AM EDT 05/13/2025 8:53 AM EDT us Generic External Data Provider LAB BLOOD ORDERAB LES Final Result Performing Organization Address [facility] de Phone Number [facility] [address] [place] [phone] * Calcium (05/13/2025 8:53 AM EDT) Calcium 8.6 8.4 - 10.2 mg/dL [facility] 05/13/2025 8:53 AM EDT 05/13/2025 8:53 AM EDT Generic External Data Provider LAB BLOOD ORDERAB LES Final Result Performing Organization Address [facility] de Phone Number [facility] [address] [place] [phone] * Electrolyte Panel (05/13/2025 8:53 AM EDT) Pathologist [facility] [place] Sodium 141 135 - 145 mmol/L [facility] Potassium 3.5 3.3 - 5.1 mmol/L [facility] Chloride 106 96 - 108 mmol/L [facility] Carbon Dioxide 27 22 - 29 mmol/L [facility] Anion Gap 12 12 - 20 [facility] 05/13/2025 8:53 AM EDT 05/13/2025 8:53 AM EDT us Generic External Data Provider LAB BLOOD ORDERAB LES Final Result Performing Organization Address [facility] de Phone Number [facility] [address] [place] [phone] * (ABNORMAL) Basic Metabolic Panel (04/29/2025 11:55 AM EDT) Only the most recent of2 resultswithin the time period is included. Sodium 139 135 - 145 mmol/L [facility] Potassium 3.7 3.3 - 5.1 mmol/L [facility] Chloride 108 96 - 108 mmol/L [facility] Carbon Dioxide 25 22 - 29 mmol/L [facility] Anion Gap 10(L) 12 - 20 [facility] Urea Nitrogen (BUN) 15 9 - 16 mg/dL [facility] Creatinine, Serum 0.64 0.5 - 1.4 mg/dL [facility] Estimated Glomerular Filt Rate >60 [facility] Comment:Chronic Kidney Disea se: Estimated GFR < 60 mL/min/[id number] Kidney Disease: Estimated GFR < 15 mL/min/1.73m2 Glucose 91 60 - 115 mg/dL [facility] Calcium 8.8 8.4 - 10.2 mg/dL [facility] 04/29/2025 11:5 5 AM EDT 04/29/2025 11:55 AM EDT us Generic External Data Provider LAB BLOOD ORDERAB LES Final Result Performing Organization Address City/State/[facility] Co de Phone Number [facility] [address] [place] [phone] * POCT HGB A1C (03/25/2025 1:35 PM EDT) Hemoglobin A1C 5.0 4.0 - 5.7 % QC Media Lot # [id number] Lot# Expiration Date , Blood 03/25/2025 1:35 PM EDT us Sarah Galdamez MD POINT OF CARE TEST EN TER/EDIT ORDERABLES Final Result * POCT Glucose (03/25/2025 1:34 PM EDT) Glucose Blood, POC 82 60 - 200 mg/dL QC Media Lot # [id number] Lot# Expiration Date , Blood Capillary blood specimen / Unknown 03/25/2025 1:34 PM EDT us Sarah Galdamez MD POINT OF CARE TEST EN TER/EDIT ORDERABLES Final Result * Other Reference Test - [facility] (03/24/2025 9:21 AM EDT) 03/24/2025 9:21 AM EDT 03/24/2025 10:08 AM EDT Narrative [facility] - 04/04/2025 2:05 PM EDT Urine diuretic screening CODE 17198 us Generic External Data Provider LAB BLOOD ORDERAB LES Final Result [facility] [address] [place] [phone] * (ABNORMAL) Lipid Panel, Standard (09/30/2024 9:07 AM EST) Triglycerides 150(H) <150 mg/dL [facility] Comment:Desirable Triglyceri de: less than 150 mg/dLBorderline High Triglyceride 150-199 mg/dLHigh Triglyceride: 200-499 mg/dLVery High Triglyceride: greater than or equal to 5OO mg/dL Cholesterol 170 <200 mg/dL [facility] Comment:Desirable Cholestero l: less than 200 mg/dLBorderline High Cholesterol: 200-239 mg/dLHigh Cholesterol: greater than 239 mg/dL LDL Cholesterol Calculated 101(H) <100 mg/dL [facility] Comment:Desirable LDL: less than 100 mg/dLNear Optimal/Above Optimal LDL: 110- 129 mg/dLBorderline High LDL: 130-159 mg/dLHigh LDL: 160-189 mg/dLVery High LDL: greater than or equal to 190 mg/dL HDL Cholesterol 39(L) >40 mg/dL [facility] Comment:Desirable HDL: great er than 40 mg/dL Note: This HDL assay may give artificially low results in patients with liver disease. 09/30/2024 9:07 AM EST 09/30/2024 9:07 AM EST us Generic External Data Provider LAB BLOOD ORDERAB LES Final Result Performing Organization Address City/[facility]/ZIP Co de Phone Number [facility] [address] [place] [phone] * Hm Pap Smear (02/21/2023) Historical Provider MD HEALTH MAINTENANCE Final Result * HPV E6/E7 RFLX CLAIRE 16 18/45 (12/08/2021 10:43 AM EDT) HPV mRNA E6/E7 rflx Not Detected Not Detected [facility] Comment: Methodology: [employer]ime [employer] Operator-Mediated Amplification This assay detects E6/E7 viral messenger RNA (mRNA) from 14 high-risk HPV types (16,18,31,33,35,39,45,51,52,56,58,59,66,68). The analytical performance characteristics of this assay have been determined by [employer]. The modifications have not been cleared or approved by the FDA. This assay has been validated pursuant to the CLIA regulations and is used for clinical purposes. For additional information, please refer to http://education.Frolik/faq/EZD098p1 (This link if provided for information/ educational purposes only.) THIS TEST WAS PERFORMED AT: [employer] [facility] [address] [place] [address],[place] [phone] KLAUS BRASHER MD 12/08/2021 10:4 3 AM EDT us Laine Zamora HISTORICAL/NON ORDERABLE LABS Fi nal Result [facility] [address] * HEPATITIS C ANTIBODY (11/16/2019 10:03 AM EDT) HEPATITIS C ANTIBODY [facility] Comment: Antibodies to HCV not detected; does not exclude early acute HCV infection. 11/16/2019 10:0 3 AM EDT Laine Zamora HISTORICAL/NON ORDERABLE LABS Fi nal Result Performing Organization Address [facility] de Phone Number [facility] [address] * HIV AB/AG (11/16/2019 10:03 AM [...] of detection of this assay. [employer] Re[employer] HIV Ag/Ab Combo assay result and supplemental assay results should be interpreted in conjunction with the patient's clinical presentation, history and other laboratory results. If the results are inconsistent with clinical evidence, additional testing is suggested to confirm the result. 11/16/2019 10:0 3 AM EDT Laine Zamora HISTORICAL/NON ORDERABLE LABS Fi nal Result Performing Organization Address [facility] Number [facility] [address] [place] [address] from Last 3 Months or Most Recently Relevant to Health Maintenance Insurance [facility] ST[facility] ADULT * Guarantor: Sarah Sheikh I Account Type Relation to Patient Date of Phone Billing Address Personal/Family Self [address] [place] [address] Care Teams Optical Manager Relationship Specialty Start Date End Date Sarah Bradley MD [address] [place] [phone] PCP - General Family Medicine 06/22/18 Aisha Savage Die MechanicShoe Stainer 04/11/24
--- OUTSIDE RECORDS SUMMARY | 2025-06-17 07:47 | XMS_ITS | Encounter Summary ---
Author Organization [email or web address] Address [address] [place] [address] Care Team Providers Care Vp Of Technology Name Role Phone Sarah Bradley MD Primary Care Provide r Bruce Cruz RN Unavailable [phone] Veronica Preston Unavailable Encounter Details Date Type Department Care Team ([facility] st Contact Info) Description 07/26/2024 Telephone [facility] [address] [place] [address] Sarah Bradley MD [address] [place], [place] [phone] Social History Tobacco Use Types Packs/Day Years [...] documented as of this encounter Care Teams Vp Of Technology Relationship Specialty Start Date End Date Sarah Bradley MD [address] [place] [address] PCP - General Family Medicine 06/22/18 Bruce Cruz, RN [address] [place] [address] Registered Nurse Family Medicine 01/15/25 05/22/25 Veronica Preston 01/15/25 06/03/25 Aisha Savage Professor Of CommunicationRn Progressive Care 04/11/24 documented as of this encounter
[2025-06-17 08:59] LABS: Anion Gap 12 (12-20); Blood Urea Nitrogen 17 mg/dL (9-16); Carbon Dioxide 25 mmol/L (22-29); Chloride 107 mmol/L (96-108); Estimated Glomerular Filt Rate > 60; Magnesium 2.0 mg/dL (1.6-2.6); Potassium 3.5 mmol/L (3.3-5.1); Sodium 140 mmol/L (135-145)
[2025-06-17 09:34] LABS: Parathyroid Hormone Intact 56.3 pg/mL (8.7-77.1)
== END 2025-06-17 07:45 | disposition home or self-care (01) ==
LOC: HO.LAB 07:44
PROVIDERS: PCP Internal Medicine; Visit Provider Internal Medicine Nephrology
DX: E87.6 Hypokalemia (principal); I10 Essential (primary) hypertension
CPT/HCPCS: 36415; 80051; 82565; 83735; 83970; 84520

== ENCOUNTER 2025-06-18 14:34 | Outpatient (AMB) | payer MEDICAID, SELFPAY ==
--- NOTE | 2025-06-18 14:44 | HO.NEPHOV_ITS ---
Vital Signs 06/18/25 14:47 Height 4 ft 11 in Weight 130 lb 6 oz BMI 26.3 BP 110/70 Blood Pressure Location Lt brachial Position Sitting Pulse 67 Pulse Source Pulse Oximeter Pulse Oximetry (%) 99 Oxygen Delivery Method Room Air Intake Visit Reasons: 1mon f/u w/labs-LVM Complex Case Manager Required: Yes Complex Case Manager Language: Complaint Operator Services: Complex Case Manager Present Complex Case Manager Name: Paul [phone] Information Interpreted: clinical only Accompanied by: Self / Same As Patient Allergies latex (LATEX) Allergy (Intermediate, Verified 06/18/25 14:46) HANDS SWELL HPI Comments Details: 40 y/o female with a medical history of gastric sleeve surgery (reports on 01/14/25), HTN with H/O chronic hypokalemia here for routine follow up. States she is feeling well. She is taking spironolactone as prescribed. she denies pain, nausea, vomiting or diarrhea. patient denies use of prescribed/non- prescribed diuretics. Her urine diuretic screen was negative. She has no weakness nor has any systemic complaints at the time of this visit. [facility] Medical History BMI 37.0-37.9, adult Encounter for IUD removal Cervical cancer screening Prediabetes IUD check up Encounter for IUD insertion Left breast lump Well woman exam Family planning Hx of transfusion of packed red blood cells Migraine Seizures Non-insulin dependent type 2 diabetes mellitus Sleep apnea treated with continuous positive airway pressure (CPAP) Hypothyroidism Elevated cholesterol Obesity (BMI 30-39.9) Supraumbilical hernia HTN (hypertension) Anemia History of hypothyroidism Diastasis recti Depression Asthma GERD (gastroesophageal reflux disease) Surgical History S/P laparoscopic sleeve gastrectomy History of esophagogastroduodenoscopy (EGD) Hx of section History of umbilical hernia repair (05/13/19) Family History Father No problems noted. Mother HTN (hypertension) Asthma Hyperthyroidism Diabetes Paternal Aunt Breast cancer Son Asthma Son Asthma ADHD Son Asthma Daughter Autism Social History Household Members: Spouse Housing: Apartment Are you a primary home care manager rn to a significant other at home: No Do you presently have visiting nurse or other home services: No Alcohol intake: former Comment: Patient gait and balance are steady. Patient Tobacco Use Status: Never used Tobacco service: No Sexual orientation: Straight/Heterosexual Gender identity: Female Female Reproductive History Menstrual Age of Menarche: 13 Review of Systems Const All systems reviewed & are unremarkable except as noted in HPI and below Physical Exam Vital Signs: Last Vital Signs Pulse 67 06/18/25 14:47 BP 110/70 06/18/25 14:47 Pulse Ox 99 06/18/25 14:47 Oxygen Delivery Method Room Air 06/18/25 14:47 BMI result Body Mass Index 26.3 Const General: comfortable and no acute distress Orientation/consciousness: patient oriented x3 HEENT Head: Yes normocephalic Mouth: Normal oral and palatal mucosa present Eyes EOM: EOMs intact bilaterally Neck Neck: Yes supple Resp Auscultation: clear to auscultation bilaterally Cardio Jugular venous distension: no JVD Rate: regular rate GI Palpation (GI): Soft to palpation Auscultation: normal bowel sounds General: Yes no CVA tenderness Back/Spine/Pelvis Back: no CVA tenderness Skin General skin exam: no rashes or lesions noted Neuro General: patient oriented x3 and moves all extremities Extrem General: Yes no pedal edema Results Reviewed Nephrology Results: Sodium, (135-145) 140 mmol/L 06/17/25 Potassium, (3.3-5.1) 3.5 mmol/L 06/17/25 Chloride, (96-108) 107 mmol/L 06/17/25 Carbon Dioxide, (22-29) 25 mmol/L 06/17/25 BUN, (9-16) 17 mg/dL H 06/17/25 Creatinine, (0.5-1.4) 0.57 mg/dL 06/17/25 Calcium, (8.4-10.2) 8.6 mg/dL 05/13/25 PTH Intact, (8.7-77.1) 56.3 pg/mL 06/17/25 Assessment & Plan Assessment & Plan (1) HTN (hypertension): Code(s): I10 - Essential (primary) hypertension Category: Medical Qualifiers: Hypertension type: primary hypertension Qualified Code(s): I10 - Essential (primary) hypertension (2) Hypokalemia: Code(s): E87.6 - Hypokalemia Category: Medical Plan Has H/O hypokalemia for a long time. Has family H/O ( grandmother) . Urine diuretic screen negative. aldosterone level normal 24, adadabbynpe-xz-knbbu ratio is normal at 3.9. Likely has tubular wasting. Continued W/U in progress. Discontinued KCl recently . K stable; C/W Spironolactone 25 mg AM and 50 mg PM which I may increase to 50 mg bid . F/U labs ordered. Answered all questions. Orders: Orders Creatinine 2 Months E87.6 - Hypokalemia, I10 - Essential (primary) hypertension Blood Urea Nitrogen 2 Months E87.6 - Hypokalemia, I10 - Essential (primary) hypertension Electrolytes 2 Months E87.6 - Hypokalemia, I10 - Essential (primary) hypertension Magnesium 2 Months E87.6 - Hypokalemia, I10 - Essential (primary) hypertension Coding Level of Care Code Est Pt Level 4 (66562) Diagnoses Primary hypertension I10 Hypertension type: primary hypertension Hypokalemia E87.6
[2025-06-18 14:47] VITALS: BP 110/70; PULSE 67; O2SAT 99; BMI 26.3
--- OUTSIDE RECORDS SUMMARY | 2025-06-18 18:17 | XMS_ITS | Clinical Summary ---
Author Organization [employer] Address [address] [facility] 7t [place] [address] Care Team Providers Care Artist'S Model Name Role Phone Sarah Bradley MD Primary [...] Encounters Date Type Department Care Team Description 06/17/2025 Orders Only GENERIC EXTERNAL DATA DEPARTMENT Provider, Generic External Data 06/03/2025 Patient Outreach [facility] [address] [place] [address] Sarah Bradley MD Care Coordination (C3/CM F/U) 05/22/2025 Patient Outreach [address] [address] Sarah Bradley MD Care Management (C3CM- follow up call) 05/16/2025 Patient Outreach [facility] [address] [place] [address] Sarah Bradley MD 05/13/2025 Orders Only GENERIC EXTERNAL DATA DEPARTMENT Provider, Generic External Data 05/12/2025 Patient Outreach [facility] [address] [place] [address] Sarah Bradley MD Care Coordination (C3/CM F/u) 04/29/2025 Orders Only GENERIC EXTERNAL DATA DEPARTMENT Provider, Generic External Data 04/25/2025 Patient Outreach [facility] [address] [place] [address] Sarah Bradley MD 04/10/2025 Patient Outreach [facility] [address] [place] [address] Sarah Bradley MD Care Coordination (C3/CM F/U) 2025 Patient Outreach [address] [address] Sarah Bradley MD Care Management (C3CM- F/U call # 1) 03/26/2025 Patient Outreach [facility] [address] [place] [address] Sarah Bradley MD Care Coordination (C3/CM F/U) 03/25/2025 1:15 PM EDT Office Visit [facility] [address] [place] [address] Sarah Bradley MD 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 (Primary Dx); Prediabetes; Severe major depression, single episode, without psychotic features (CMS/HCC); Uncomplicated asthma, unspecified asthma severity, unspecified whether persistent; Hypokalemia; Status post bariatric surgery 03/25/2025 Travel 03/24/2025 Orders Only GENERIC EXTERNAL DATA DEPARTMENT Provider, Generic External Data 03/24/2025 Telephone [facility] [address] [place] [address] Sarah Bradley MD Chart Prep 03/19/2025 Orders [...] Procedure Name Priority Date/Time Associated Diagnosis Comments PTH, INTACT WITHOUT CALCIUM Routine 06/17/2025 8:05 AM EDT MAGNESIUM Routine 06/17/2025 8:05 AM EDT CREATININE, SERUM Routine 06/17/2025 8:0 5 AM EDT UREA NITROGEN (BUN) Routine 06/17/2025 8 :05 AM EDT ELECTROLYTE PANEL Routine 06/17/2025 8:0 5 AM EDT MAGNESIUM Routine 05/13/2025 8:53 AM EDT CALCIUM [...] Recently Relevant to Health Maintenance Results * Creatinine, Serum (06/17/2025 8:05 AM EDT) Creatinine, Serum 0.57 0.5 - 1.4 mg/dL [facility] Estimated Glomerular Filt Rate >60 [facility] Comment:Chronic Kidney Disea se: Estimated GFR < 60 mL/min/1.71s2Salpfb Kidney Disease: Estimated GFR < 15 mL/min/1.73m2 06/17/2025 8:05 AM EDT 06/17/2025 8:05 AM EDT us Generic External Data Provider LAB BLOOD ORDERAB LES Final Result Performing Organization Address [facility] Co de Phone Number [facility] [address] [place] [phone] * (ABNORMAL) BUN (Blood Urea Nitrogen) (06/17/2025 8:05 AM EDT) Urea Nitrogen (BUN) 17(H) 9 - 16 mg/dL [facility] 06/17/2025 8:05 AM EDT 06/17/2025 8:05 AM EDT Generic External Data Provider LAB BLOOD ORDERAB LES Final Result Performing Organization Address [facility] de Phone Number [facility] [address] [place] [phone] * PTH, Intact Without Calcium (06/17/2025 8:05 AM EDT) Only the most recent of2 resultswithin the time period is included. Parathyroid Hormone, Intact 56.3 8.7 - 77.1 pg/mL [facility] 06/17/2025 8:05 AM EDT 06/17/2025 8:05 AM EDT Generic External Data Provider LAB BLOOD ORDERAB LES Final Result Performing Organization Address [facility] Co de Phone Number [facility] [address] [place] [phone] * Magnesium (06/17/2025 8:05 AM EDT) Only the most recent of2 resultswithin the time period is included. Magnesium 2.0 1.6 - 2.6 mg/dL [facility] 06/17/2025 8:05 AM EDT 06/17/2025 8:05 AM EDT us Generic External Data Provider LAB BLOOD ORDERAB LES Final Result Performing Organization Address [facility] Co de Phone Number [facility] [address] [place] [phone] * Electrolyte Panel (06/17/2025 8:05 AM EDT) Only the most recent of2 resultswithin the time period is included. Sodium 140 135 - 145 mmol/L [facility] Potassium 3.5 3.3 - 5.1 mmol/L [facility] Chloride 107 96 - 108 mmol/L [facility] Carbon Dioxide 25 22 - 29 mmol/L [facility] Anion Gap 12 12 - 20 [facility] 06/17/2025 8:05 AM EDT 06/17/2025 8:05 AM EDT us Generic External Data Provider LAB BLOOD ORDERAB LES Final Result Performing Organization Address [facility] Co de Phone Number [facility] [address] [place] [phone] * Calcium (05/13/2025 8:53 AM EDT) Calcium 8.6 8.4 - 10.2 mg/dL [facility] 05/13/2025 8:53 AM EDT 05/13/2025 8:53 AM EDT us Generic External Data Provider LAB BLOOD ORDERAB LES Final Result Performing Organization Address City/[facility]/ZIP Co de Phone Number [facility] [address] [place] [phone] * (ABNORMAL) Basic Metabolic Panel (04/29/2025 11:55 AM EDT) Only the most recent of2 resultswithin the time period is included. Sodium 139 135 - 145 mmol/L [facility] Potassium 3.7 3.3 - 5.1 mmol/L [facility] Chloride 108 96 - 108 mmol/L [facility] Carbon Dioxide 25 22 - 29 mmol/L [facility] Anion Gap 10(L) 12 - 20 [facility] Urea Nitrogen (BUN) 15 9 - 16 mg/dL [facility] Creatinine, Serum 0.64 0.5 - 1.4 mg/dL [facility] Estimated Glomerular Filt Rate >60 [facility] Comment:Chronic Kidney Disea se: Estimated GFR < 60 mL/min/1.04j7Olsspx Kidney Disease: Estimated GFR < 15 mL/min/1.73m2 Glucose 91 60 - 115 mg/dL [facility] Calcium 8.8 8.4 - 10.2 mg/dL [facility] 04/29/2025 11:5 5 AM EDT 04/29/2025 11:55 AM EDT us Generic External Data Provider LAB BLOOD ORDERAB LES Final Result [facility] [address] [place] [phone] * POCT HGB A1C (03/25/2025 1:35 [...] Media Lot # [id number] Lot# Expiration Date ,693,702 Blood Capillary blood specimen / Unknown 03/25/2025 1:34 PM EDT us Sarah Galdamez MD POINT OF CARE TEST EN TER/EDIT ORDERABLES Final Result * Other Reference Test - Misc (03/24/2025 9:21 AM EDT) 03/24/2025 9:21 AM EDT 03/24/2025 10:08 AM EDT Narrative [facility] - 04/04/2025 2:05 PM EDT Urine diuretic screening CODE [id number] us Generic External Data Provider LAB BLOOD ORDERAB LES Final Result Performing Organization Address City/State/[facility] Co de Phone Number [facility] [address] [place] [phone] * (ABNORMAL) Lipid Panel, Standard (09/30/2024 9:07 AM EST) Triglycerides 150(H) <150 mg/dL [facility] Comment:Desirable Triglyceri de: less than 150 mg/dLBorderline High Triglyceride 150-199 mg/dLHigh Triglyceride: 200-499 mg/dLVery High Triglyceride: greater than or equal to 5OO mg/dL Cholesterol 170 <200 mg/dL [facility] Comment:Desirable Cholestero l: less than 200 mg/dLBorderline High Cholesterol: 200-239 mg/dLHigh Cholesterol: greater than 239 mg/dL LDL Cholesterol Calculated 101(H) <100 mg/dL [facility] Comment:Desirable LDL: less than 100 mg/dLNear Optimal/Above Optimal LDL: 110- 129 mg/dLBorderline High LDL: 130-159 mg/dLHigh LDL: 160-189 mg/dLVery High LDL: greater than or equal to 190 mg/dL HDL Cholesterol 39(L) >40 mg/dL [facility] Comment:Desirable HDL: great er than 40 mg/dL Note: This HDL assay may give artificially low results in patients with liver disease. 09/30/2024 9:07 AM EST 09/30/2024 9:07 AM EST us Generic External Data Provider LAB BLOOD ORDERAB LES Final Result Performing Organization Address City/[facility]/ZIP Co de Phone Number [facility] [address] [place] [phone] * Hm Pap Smear (02/21/2023) Historical Provider HEALTH MAINTENANCE Final Result * HPV E6/E7 RFLX CLAIRE 16 18/45 (12/08/2021 10:43 AM EDT) Pathologist [facility] HPV mRNA E6/E7 rflx Not Detected Not Detected [facility] Comment: Methodology: Provider Network Manager-Mediated Amplification This assay detects E6/E7 viral messenger RNA (mRNA) from 14 high-risk HPV types (16,18,31,33,35,39,45,51,52,56,58,59,66,68). The analytical performance characteristics of this assay have been determined by [employer]. The modifications have not been cleared or approved by the FDA. This assay has been validated pursuant to the CLIA regulations and is used for clinical purposes. For additional information, please refer to http://education.[employer]faq/DAE954t6 (This link if provided for information/ educational purposes only.) THIS TEST WAS PERFORMED AT: [facility] [address] [place] [address] [address],[place] [address] KLAUS BRASHER MD 12/08/2021 10:4 3 AM EDT Laine Zamora HISTORICAL/NON ORDERABLE LABS Fi nal Result [facility] Anywhere [address] * HEPATITIS C ANTIBODY (11/16/2019 10:03 AM EDT) HEPATITIS C ANTIBODY [facility] Comment: Antibodies to HCV not detected; does not exclude early acute HCV infection. 11/16/2019 10:0 3 AM EDT Laine Zamora HISTORICAL/NON ORDERABLE LABS Fi nal Result Performing Organization Address [facility] [address] [place] [address] * HIV AB/AG (11/16/2019 10:03 AM EDT) [...] of detection of this assay. The [employer] Specialist HIV Ag/Ab Combo assay result and supplemental assay results should be interpreted in conjunction with the patient's clinical presentation, history and other laboratory results. If the results are inconsistent with clinical evidence, additional testing is suggested to confirm the result. 11/16/2019 10:0 3 AM EDT Laine Zamora HISTORICAL/NON ORDERABLE LABS Fi nal Result Performing Organization Address [facility] Number [facility] [address] [place] [address] from Last 3 Months or Most Recently Relevant to Health Maintenance Insurance [facility] C[place] AD[place] Care Teams Artist'S Model Relationship Specialty Start Date End Date Sarah Bradley MD [address] [place] [phone] PCP - General Family Medicine 06/22/18 Aisha Savage Instant Print OperatorLead Database Administrator 04/11/24
--- OUTSIDE RECORDS SUMMARY | 2025-06-18 18:17 | XMS_ITS | Encounter Summary ---
Author Organization [employer] Address [address] [facility] [address] 7t [place] [address] Care Team Providers Care Site Promotion Agent Name Role Phone Sarah Bradley MD Primary Care Provide r Bruce Cruz RN Unavailable [phone] Veronica Preston Unavailable Encounter Details Date Type Department Care Team (Late st Contact Info) Description 03/22/2023 Orders Only [facility] [address] [place] [address] Provider, MD Yessi Social History Tobacco Use [...] documented as of this encounter Care Teams Site Promotion Agent Relationship Specialty Start Date End Date Sarah Bradley MD [address] [place] [phone] PCP - General Family Medicine 06/22/18 Bruce Cruz, MIQUEL [address] [place] [address] Registered Nurse Family Medicine 01/15/25 05/22/25 Veronica Preston 01/15/25 06/03/25 Aisha Savage Educational Program DirectorJig Builder Helper 04/11/24 documented as of this encounter
--- OUTSIDE RECORDS SUMMARY | 2025-06-18 18:17 | XMS_ITS | Clinical Summary ---
Author Organization [employer] [facility] ity Address [address] [place] [address] Care Team Providers Care Leather Softener Name Role Phone Unavailable Primary Care Provider [...]
--- OUTSIDE RECORDS SUMMARY | 2025-06-18 18:17 | XMS_ITS | Encounter Summary ---
Author Organization [employer] Address [address] [facility] 7t [place] [address] Care Team Providers Care Sound System Installer Name Role Phone Sarah Bradley MD Primary Care Provide r Bruce Cruz RN Unavailable [phone] Veronica Preston Unavailable Encounter Details Date Type Department Care Team (Late st Contact Info) Description 03/22/2023 Abstract [facility] [address] [place] [address] Sarah Bradley MD [address] [place] [address] Social History Tobacco Use Types Packs/Day Years [...] documented as of this encounter Care Teams Sound System Installer Relationship Specialty Start Date End Date Sarah Bradley MD [address] [place] [address] PCP - General Family Medicine 06/22/18 Bruce Cruz, MIQUEL [address] [place] [phone] Registered Nurse Family Medicine 01/15/25 05/22/25 Veronica Preston 01/15/25 06/03/25 Aisha Savage Technical Testing EngineerDirector Enterprise Systems 04/11/24 documented as of this encounter
--- OUTSIDE RECORDS SUMMARY | 2025-06-18 18:17 | XMS_ITS | Encounter Summary ---
Author Organization [employer] Address [address] [place] [address] 7t [place] [address] Care Team Providers Care Medical Writer Name Role Phone Sarah Bradley MD Primary Care Provide r Bruce Cruz RN Unavailable [phone] Veronica Preston Unavailable Encounter Details Date Type Department Care Team (Late st Contact Info) Description 06/07/2023 Abstract [facility] [address] [place] [address] Sarah Bradley MD [address] [place] [address] Social History Tobacco Use Types Packs/Day Years [...] as of this encounter Care Teams Medical Writer Relationship Specialty Start Date End Date Sarah Bradley MD [address] [place] [address] PCP - General Family Medicine 06/22/18 Bruce Cruz, RN [address] [place] [address] Registered Nurse Family Medicine 01/15/25 05/22/25 Veronica Preston 01/15/25 06/03/25 Aisha Savage Raw Stock Drier TenderCashier Gambling 04/11/24 documented as of this encounter
--- OUTSIDE RECORDS SUMMARY | 2025-06-18 18:17 | XMS_ITS | Encounter Summary ---
Author Organization [employer] Address [address] [facility] [address] 7t [place] [address] Care Team Providers Care Accounting Support Specialist Name Role Phone Sarah Bradley MD Primary Care Provide r Bruce Cruz RN Unavailable [phone] Veronica Preston Unavailable Reason for Visit * Reason Onset Date Comments PT1 03/22/2024 Encounter Details Date Type Department Care Team ([facility] st Contact Info) Description 03/22/2024 Telephone [facility] [address] [place], [place] [phone] Sarah Bradley MD [address] [place], [place] [phone] PT1 Social History Tobacco Use Types Packs/Day [...] Y/N: Yes Provider name or facility name: [facility] Facility Address: [address] [place] [phone] Escort needed: Y/N: No Do you have [...] documented as of this encounter Care Teams Accounting Support Specialist Relationship Specialty Start Date End Date Sarah Bradley MD [address] [place] [address] PCP - General Family Medicine 06/22/18 Bruce Cruz RN [address] [place] [phone] Registered Nurse Family Medicine 01/15/25 05/22/25 Veronica Preston 01/15/25 06/03/25 Aisha Savage Ambulatory NurseEvent Marketing Intern 04/11/24 documented as of this encounter
--- OUTSIDE RECORDS SUMMARY | 2025-06-18 18:17 | XMS_ITS | Encounter Summary ---
Author Organization [employer] Address [address] [facility] 7t [place] [address] Care Team Providers Care Maintenance Mechanic Supervisor Name Role Phone Sarah Bradley MD Primary Care Provide r Bruce Cruz RN Unavailable [phone] Veronica Preston Unavailable Encounter Details Date Type Department Care Team (Late st Contact Info) Description 01/27/2023 Abstract [facility] MEDICINE [address] [place] [address] Sarah Bradley MD [address] [place] [address] Social History Tobacco Use Types Packs/Day Years [...] documented as of this encounter Care Teams Maintenance Mechanic Supervisor Relationship Specialty Start Date End Date Sarah Bradley MD [address] [place] [phone] PCP - General Family Medicine 06/22/18 Bruce Cruz, MIQUEL [address] [place] [address] Registered Nurse Family Medicine 01/15/25 05/22/25 Veronica Preston 01/15/25 06/03/25 Aisha Savage Loom Changeover OperatorSearch Planner 04/11/24 documented as of this encounter
--- OUTSIDE RECORDS SUMMARY | 2025-06-18 18:17 | XMS_ITS | Encounter Summary ---
Author Organization [employer] Address [address] [place] [address] 7 [place] [address] Care Team Providers Care Biztalk Administrator Name Role Phone Sarah Bradley MD Primary Care Provide r Bruce Cruz RN Unavailable [phone] Veronica Preston Unavailable Encounter Details Date Type Department Care Team (Latest Contact Info) Description 12/15/2020 Abstract [facility] CONVERSIONS Dental, Provider, DDS Social History [...] on filedocumented in this encounter Care Teams Biztalk Administrator Relationship Specialty Start Date End Date Sarah Bradley MD [address] [place] [phone] PCP - General Family Medicine 06/22/18 Bruce Cruz, RN [address] [place] [address] Registered Nurse Family Medicine 01/15/25 05/22/25 Veronica Preston 01/15/25 06/03/25 Aisha Savage Structural Metal WorkerRefinery Operator 04/11/24 documented as of this encounter
--- OUTSIDE RECORDS SUMMARY | 2025-06-18 18:17 | XMS_ITS | Encounter Summary ---
Author Organization [employer] Address [address] [facility] [address] 7t [place] [address] Care Team Providers Care Yarding Engineer Name Role Phone Sarah Bradley MD Primary Care Provide r Bruce Cruz RN Unavailable [phone] Veronica Preston Unavailable Encounter Details Date Type Department Care Team ([facility] st Contact Info) Description 07/26/2024 Telephone [facility] [address] [place] [address] Sarah Bradley MD [address] [place], [place] [phone] Social History Tobacco Use Types Packs/Day Years [...] documented as of this encounter Care Teams Yarding Engineer Relationship Specialty Start Date End Date Sarah Bradley MD [address] [place] [address] PCP - General Family Medicine 06/22/18 Bruce Cruz, RN [address] [place] [address] Registered Nurse Family Medicine 01/15/25 05/22/25 Veronica Preston 01/15/25 06/03/25 Aisha Savage Box Order PersonSocial Media Marketer 04/11/24 documented as of this encounter
--- OUTSIDE RECORDS SUMMARY | 2025-06-18 18:18 | XMS_ITS | Encounter Summary ---
Author Organization [employer] Address [address] [facility] [address] 7[address] [place] [address] Care Team Providers Care Predatory Animal Hunter Name Role Phone Sarah Bradley MD Primary Care Provide r Encounter Details Date Type Department Care Team (Late st Contact Info) Description 06/17/2025 Orders Only GENERIC EXTERNAL DATA [...] the past 12 months, has t he [employer], [employer], oil or water [employer] threatened to shut off services in your [...] Procedure Name Priority Date/Time Associated Diagnosis Comments CREATININE, SERUM Routine 06/17/2025 8:0 5 AM EDT UREA NITROGEN (BUN) Routine 06/17/2025 8 :05 AM EDT PTH, INTACT WITHOUT CALCIUM Routine 06/17/2025 8:05 AM EDT MAGNESIUM Routine 06/17/2025 8:05 AM EDT ELECTROLYTE PANEL Routine 06/17/2025 8:0 5 AM EDT documented in this encounter Results * PTH, Intact Without Calcium (06/17/2025 8:05 AM EDT) Parathyroid Hormone, Intact 56.3 8.7 - 77.1 pg/mL [facility] 06/17/2025 8:05 AM EDT 06/17/2025 8:05 AM EDT us Generic External Data Provider LAB BLOOD ORDERAB LES Final Result Performing Organization Address [facility] Co de Phone Number [facility] [address] [place] [phone] * Magnesium (06/17/2025 8:05 AM EDT) Magnesium 2.0 1.6 - 2.6 mg/dL [facility] 06/17/2025 8:05 AM EDT 06/17/2025 8:05 AM EDT us Generic External Data Provider LAB BLOOD ORDERAB LES Final Result Performing Organization Address [facility] de Phone Number [facility] [address] [place] [phone] * Creatinine, Serum (06/17/2025 8:05 AM EDT) Creatinine, Serum 0.57 0.5 - 1.4 mg/dL [facility] Estimated Glomerular Filt Rate >60 [facility] Comment:Chronic Kidney Disea se: Estimated GFR < 60 mL/min/[id number] Kidney Disease: Estimated GFR < 15 mL/min/1.73m2 06/17/2025 8:05 AM EDT 06/17/2025 8:05 AM EDT Generic External Data Provider LAB BLOOD ORDERAB LES Final Result Performing Organization Address [facility] Co de Phone Number [facility] [address] [place] [phone] * (ABNORMAL) BUN (Blood Urea Nitrogen) (06/17/2025 8:05 AM EDT) Urea Nitrogen (BUN) 17(H) 9 - 16 mg/dL [facility] 06/17/2025 8:05 AM EDT 06/17/2025 8:05 AM EDT us Generic External Data Provider LAB BLOOD ORDERAB LES Final Result Performing Organization Address [facility] Co de Phone Number [facility] [address] [place] [phone] * Electrolyte Panel (06/17/2025 8:05 AM EDT) Sodium 140 135 - 145 mmol/L [facility] Potassium 3.5 3.3 - 5.1 mmol/L [facility] Chloride 107 96 - 108 mmol/L [facility] Carbon Dioxide 25 22 - 29 mmol/L [facility] Anion Gap 12 12 - 20 [facility] 06/17/2025 8:05 AM EDT 06/17/2025 8:05 AM EDT Generic External Data Provider LAB BLOOD ORDERAB LES Final Result Performing Organization Address [facility] Co de Phone Number [facility] [address] [place] [phone] documented in this encounter Visit Diagnoses Not on filedocumented in this encounter Additional Health Concerns Assessment Noted Time PHQ-9 Depression Total Score: 2 02/13/20 25 2:23 PM EDT documented as of this encounter Care Teams Predatory Animal Hunter Relationship Specialty Start Date End Date Sarah Bardley MD [address] [place] [address] PCP - General Family Medicine 06/22/18 Aisha Savage Press CatcherCore Java Software Engineer 04/11/24 documented as of this encounter
== END 2025-06-18 15:16 | disposition home or self-care (01) ==
LOC: HO.HKA 14:34
PROVIDERS: PCP Internal Medicine; Visit Provider Internal Medicine Nephrology
DX: I10 Essential (primary) hypertension (principal); E87.6 Hypokalemia
CPT/HCPCS: 99214

== ENCOUNTER → 2025-06-18 14:34 | Outpatient (BNVA) | payer MEDICAID, SELFPAY | PROVIDERS: PCP Internal Medicine; Visit Provider Internal Medicine Nephrology | DX: I10 Essential (primary) hypertension (principal); E87.6 Hypokalemia | CPT/HCPCS: 99212 ==

== ENCOUNTER 2025-07-15 09:41 | Outpatient (AMB) | payer MEDICAID, SELFPAY ==
--- NOTE | 2025-07-15 09:42 | MHC.OFFVIS ---
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 Her last Pap smear was negative in 2022 and she did have a abnormal Pap in 2020 biopsy results are in the chart. Pap smear with HPV code testing in 2021 and 2022 were both negative. she has delivered all of her children vaginally periods they range in age from 18-3. She is feeling very good and happy with her weight loss so far. She uses condoms for control and she is happy with that she might be interested in getting her tubes tied. She is absolutely clear that she is done with having children. She gets regular periods and her last period was the June. [facility] Medical History (Updated 07/15/25 @ 11:03 by Chelsi Orta CNM) Cervical cancer screening BMI 37.0-37.9, adult Encounter for IUD removal Prediabetes IUD check up Encounter for IUD insertion Left breast lump Well woman exam Family planning Hx of transfusion of packed red blood cells Migraine Seizures Non-insulin dependent type 2 diabetes mellitus Sleep apnea treated with continuous positive airway pressure (CPAP) Hypothyroidism Elevated cholesterol Obesity (BMI 30-39.9) Supraumbilical hernia HTN (hypertension) Anemia History of hypothyroidism Diastasis recti Depression Asthma GERD (gastroesophageal reflux disease) Surgical History S/P laparoscopic sleeve gastrectomy History of esophagogastroduodenoscopy (EGD) Hx of section History of umbilical hernia repair (05/13/19) Family History Father No problems noted. Mother HTN (hypertension) Asthma Hyperthyroidism Diabetes Paternal Aunt Breast cancer Son Asthma Son Asthma ADHD Son Asthma Daughter Autism Social History Household Members: Spouse Housing: Apartment Are you a primary customer care representative to a significant other at home: No Do you presently have visiting nurse or other home services: No Alcohol intake: former Comment: Patient gait and balance are steady. Patient Tobacco Use Status: Never used Tobacco service: No Sexual orientation: Straight/Heterosexual Gender identity: Female Female Reproductive History Menstrual Age of Menarche: 13 Date of last menstrual period: 06/26/25 control method: none Total pregnancies: 4 Full term: 4 Date of last pap smear: 02/21/23 (negative pap smear, negative hpv ) History of abnormal pap smear: Yes Date of Mammogram: 12/07/20 (bi rad 1) Physical Exam Vital Signs: Last Vital Signs BP 128/82 07/15/25 10:20 BMI result Body Mass Index 32.3 Const General: healthy appearing, comfortable, no acute distress, well developed and alert Nutritional Appearance: average body habitus Orientation/consciousness: patient oriented x3 Limitations: no limitations HEENT Head: Yes normocephalic Neck Neck: Yes normal visual inspection Chest Chest palpation & inspection: normal inspection of the chest Breast/axilla inspection: normal inspection of the breasts and normal inspection of the axillae Breast/axilla palpation: normal palpation of the breasts and normal palpation of the axillae Resp Effort & Inspection: normal respiratory effort GI Inspection: Yes normal to inspection, No Abdominal wall edema and No distended Palpation (GI): Soft to palpation and nontender Other: Note patient has several port scars from her abdominal surgeries External exam within normal limits there is a small vaginal mucosal tag extending from her vagina that she says is from her very 1st in [place] it does not bother her. Vagina is pink and moist cervix multiparous pink smooth healthy appearing normal vaginal mucus uterus small midposition to anteverted mobile nontender adnexa nontender good muscle tone with Kegel. Patient declines cultures and she is not due for Pap. General: Yes bladder normal to palpation External Female Exam: normal external appearance and normal appearance of the urethra Speculum Exam - Vagina: normal appearance of the vagina, normal palpation and normal vaginal discharge Speculum Exam - Cervix: normal appearance of the cervix, normal palpation and nontender Bimanual exam- vagina & uterus: normal bimanual exam, normal palpation, uterine size normal, bladder normal to palpation, consistency normal, normal palpation, uterine mobility normal, uterine shape normal, No Cervical tenderness present, non-tender and no cervical motion tenderness Bimanual Exam- Adnexa, other: normal adnexae, no masses, normal and No adnexal tenderness Neuro General: patient oriented x3 Results Reviewed Results Reviewed: Name: Sarah Sheikh I Age/Sex: 37/F Attending: Chelsi Orta CNM : 1985 Submitted by: Chelsi Orta CNM Copies to: Sarah Bradley MD MR #: [id number] Status: DEP REF Collected: 02/21/23 Location: [facility] Received: 02/22/23 Interpretation Satisfactory for evaluation. Negative for intraepithelial lesion or malignancy. HPV mRNA E6/E7: NOT DETECTED This assay detects E6/E7 viral messenger RNA (mRNA) from 14 high-risk HPV types (16, 18, 31, 33, 35, 39, 45, 51, 52, 56, 58, 59, 66, 68) HPV testing performed by [facility], [place], [place]. See reference laboratory pion of the EMR for entire report. Clinical Information LMP: 02/14/23 Previous PAP test: 12/08/21, WNL Material Received ThinPrep-Cervical Copies To Sarah Bradley MD [address] [place] [address] Chelsi Orta CNM [address] [place] [address] [place] [address] Electronically Signed By: Shavon R Botto, CT (ASCP) 03/15/23 1341 The Pap Test is a screening procedure with the inherent possibility of both false negative and false positive results. Results should be interpreted in the context of historic and current clinical findings. Reliability of the Pap Test is enhanced by performing the test on a regular repetitive basis. Patient: Sarah Sheikh I Age/Sex: 37/F MR#: [id number] Page 1 of 1 Assessment & Plan Assessment & Plan (1) Cervical cancer screening: Comment: History of ASCUS with positive HPV 2020, Biopsy negative- see findings,; Pap negative 2021; 02/21/2023 Pap is negative with negative HPV. Code(s): Z12.4 - Encounter for screening for malignant neoplasm of cervix Category: Medical (2) Pelvic floor weakness: Comment: Patient has improved tone with Kegel today encouraged to continue doing them. Has lost weight with bariatric surgery Code(s): N81.89 - Other female genital prolapse Category: Medical (3) Uses condoms as primary control method: Code(s): Z78.9 - Other specified health status Category: Social Hx (4) S/P laparoscopic sleeve gastrectomy: Code(s): Z98.84 - Bariatric surgery status Category: Surgical Plan -----Discussed in this visit the following: healthy balanced diet, regular and consistent exercise, getting recommended health screens, doing the best she can for her particular health concerns, kegel exercises, pap smear screening and followup recommendations, mammography screening and SBE, normal changes in cycles in her life stage---mammograms for her would start at age 40. . Pap smears were negative in 2021 in 2022 following biopsy in 2020 Pap not indicated today. She had no desire for checking for infection she uses condoms for control. She might be interested in getting her tubes tied she did just have gastric bypass surgery in January. She has a an upcoming appointment with bariatric surgeon I recommend she have a conversation with him about when he would recommend that she pursue other abdominal surgeries such as a tubal ligation and then when she is given the go-ahead she should make an appointment with chip tester to discuss getting her tubes tied. Coding Level of Care Code Est Pt Prev Care 18-39y([id number]) Diagnoses Cervical cancer screening Z12.4 Pelvic floor weakness N81.89 Uses condoms as primary control method Z78.9 S/P laparoscopic sleeve gastrectomy Z98.84
[2025-07-15 10:20] VITALS: BP 128/82; BMI 32.3
--- OUTSIDE RECORDS SUMMARY | 2025-07-15 10:52 | XMS_ITS | Encounter Summary ---
Author Organization [employer] Address [address] [facility] 7t [place] [address] Care Team Providers Care Certified Endoscopy Technician Name Role Phone Sarah Bradley MD Primary Care Provide r Bruce Cruz RN Unavailable [phone] Veronica Preston Unavailable Encounter Details Date Type Department Care Team (Latest Contact Info) Description 12/15/2020 Abstract [facility] CONVERSIONS Dental, Provider, DDS Social History [...] Care Team (Late st Contact Info) Description 08/20/2025 10:45 AM EST Office Visit [facility] MEDICINE [address] [place] [phone] Sarah Bradley MD [address] [place] [phone] 09/11/2025 1:00 PM EST Office Visit [facility] MEDICINE [address] [place] [phone] Sarah Bradley MD [address] [place] [address] documented as of this encounter Visit Diagnoses Not on filedocumented in this encounter Care Teams Certified Endoscopy Technician Relationship Specialty Start Date End Date Sarah Bradley MD [address] [place] [address] PCP - General Family Medicine 06/22/18 Bruce Cruz, MIQUEL [address] [place] [address] Registered Nurse Family Medicine 01/15/25 05/22/25 Veronica Preston 01/15/25 06/03/25 Aisha Savage Field Radio TechnicianSteam Finisher 04/11/24 documented as of this encounter
--- OUTSIDE RECORDS SUMMARY | 2025-07-15 10:53 | XMS_ITS | Encounter Summary ---
Author Organization [employer] Address [address] [place] [address] 7t [place] [address] Care Team Providers Care Gas Engine Mechanic Name Role Phone Sarah Bradley MD Primary Care Provide r Bruce Cruz RN Unavailable [phone] Veronica Preston Unavailable Encounter Details Date Type Department Care Team (Late Contact Info) Description 06/07/2023 Abstract [facility] MEDICINE [address] [place] [phone] Sarah Bradley MD [address] [place] [phone] Social History Tobacco Use Types Packs/Day Years [...] Department Care Team (Late Contact Info) Description 08/20/2025 10:45 AM EST Office Visit [facility] MEDICINE [address] [place] [address] [phone] Sarah Bradley MD [address] [place] [address] [phone] 09/11/2025 1:00 PM EST Office Visit [facility] MEDICINE [address] [place], [place] [phone] Sarah Bradley MD [address] [place], [place] [phone] documented as of this encounter Procedures Procedure [...] documented as of this encounter Care Teams Gas Engine Mechanic Relationship Specialty Start Date End Date Sarah Bradley MD [address] [place] [address] [phone] PCP - General Family Medicine 06/22/18 Bruce Cruz, RN [address] [place] [phone] Registered Nurse Family Medicine 01/15/25 05/22/25 Veronica Preston 01/15/25 06/03/25 Aisha Savage Ultrasonic Welding Machine OperatorTelemarketer 04/11/24 documented as of this encounter
--- OUTSIDE RECORDS SUMMARY | 2025-07-15 10:53 | XMS_ITS | Encounter Summary ---
Author Organization [employer] Address [address] [facility] [address] 7t [place] [address] Care Team Providers Care Offal Roller Name Role Phone Sarah Bradley MD Primary Care Provide r Bruce Cruz RN Unavailable [phone] Veronica Preston Unavailable Reason for Visit * Reason Onset Date Comments PT1 03/22/2024 Encounter Details Date Type Department Care Team ([facility] st Contact Info) Description 03/22/2024 Telephone [facility] MEDICINE [address] [place], [place] [phone] Sarah Bradley MD [address] [place], [place] [phone] PT1 Social History Tobacco Use Types Packs/Day [...] Yes Provider name or facility name: [facility] Facility Address: [address] [place] [address] Escort needed: Y/N: No Do you have a wheelchair: Y/N: No If yes- Manual or electric: n/a Visits; all future visits documented in this encounter Plan of Treatment Upcoming Encounters Date Type Department Care Team (Late st Contact Info) Description 08/20/2025 10:45 AM EST Office Visit [facility] MEDICINE [address] [place] [phone] Sarah Bradley MD [address] [place] [address] 09/11/2025 1:00 PM EST Office Visit [facility] MEDICINE [address] [place] [phone] Sarah Bradley MD [address] [place] [phone] documented as of this encounter Visit Diagnoses Not on filedocumented in this encounter Additional Health Concerns Assessment Noted Time PHQ-9 Depression Total Score: 0 02/19/20 1:15 PM EDT documented as of this encounter Care Teams Offal Roller Relationship Specialty Start Date End Date Sarah Bradley MD [address] [place] [address] PCP - General Family Medicine 06/22/18 Bruce Cruz, MIQUEL [address] [place] [address] Registered Nurse Family Medicine 01/15/25 05/22/25 Veronica Preston 01/15/25 06/03/25 Aisha Savage Wastewater Analyst Lab AnalystMemorial Marker Designer 04/11/24 documented as of this encounter
--- OUTSIDE RECORDS SUMMARY | 2025-07-15 10:53 | XMS_ITS | Encounter Summary ---
Author Organization [employer] Address [address] [facility] 7t [place] [address] Care Team Providers Care Spray Dry Operator Name Role Phone Sarah Bradley MD Primary Care Provide r Bruce Cruz RN Unavailable [phone] Veronica Preston Unavailable Encounter Details Date Type Department Care Team (Late st Contact Info) Description 03/22/2023 Abstract [facility] MEDICINE [address] [place] [address] Sarah Bradley MD [address] [place] [address] Social History Tobacco Use Types Packs/Day Years [...] Description 08/20/2025 10:45 AM EST Office Visit [facility] MEDICINE [address] [place] [phone] Sarah Bradley MD [address] [place] [phone] 09/11/2025 1:00 PM EST Office Visit [facility] MEDICINE [address] [place], [place] [phone] Sarah Bradley MD [address] [place] [address] [phone] documented as of this encounter Visit Diagnoses Not on filedocumented in this encounter Additional Health Concerns Assessment Noted Time PHQ-9 Depression Total Score: 0 01/18/20 23 10:22 AM EDT documented as of this encounter Care Teams Spray Dry Operator Relationship Specialty Start Date End Date Sarah Bradley MD [address] [place] [phone] PCP - General Family Medicine 06/22/18 Bruce Cruz, MIQUEL [address] [place] [address] Registered Nurse Family Medicine 01/15/25 05/22/25 Veronica Preston 01/15/25 06/03/25 Aisha Savage Stained Glass PainterCoder Operator 04/11/24 documented as of this encounter
--- OUTSIDE RECORDS SUMMARY | 2025-07-15 10:53 | XMS_ITS | Encounter Summary ---
Author Organization Team [facility] Address [address] [facility] 7t [place] [address] Care Team Providers Care Stone Mill Operator Name Role Phone Sarah Bradley MD Primary Care Provide r Bruce Cruz RN Unavailable [phone] Veronica Preston Unavailable Encounter Details Date Type Department Care Team ([facility] Contact Info) Description 03/22/2023 Orders Only [facility] MEDICINE [address] [place] [address] [phone] Provider, MD Yessi Social History Tobacco Use [...] Upcoming Encounters Date Type Department Care Team ([facility] Contact Info) Description 08/20/2025 10:45 AM EST Office Visit [address] [address] Sarah Bradley MD [address] [place], [place] [phone] 09/11/2025 1:00 PM EST Office Visit [facility] MEDICINE [address] [place], [place] [phone] Sarah Bradley MD [address] [place], [place] [phone] documented as of this encounter Procedures Procedure [...] documented as of this encounter Care Teams Stone Mill Operator Relationship Specialty Start Date End Date Sarah Bradley MD [address] [place], [place] [phone] PCP - General Family Medicine 06/22/18 Bruce Cruz, RN [address] [place] [phone] Registered Nurse Family Medicine 01/15/25 05/22/25 Veronica Preston 01/15/25 06/03/25 Aisha Savage Head Animal KeeperCell Biologist 04/11/24 documented as of this encounter
--- OUTSIDE RECORDS SUMMARY | 2025-07-15 10:53 | XMS_ITS | Encounter Summary ---
Author Organization [employer] Address [address] [facility] [address] [place] [address] Care Team Providers Care Backhoe Operator Name Role Phone Sarah Bradley MD Primary Care Provide r Bruce Cruz RN Unavailable [phone] Veronica Preston Unavailable Encounter Details Date Type Department Care Team ([facility] st Contact Info) Description 07/26/2024 Telephone [facility] MEDICINE [address] [place] [address] Sarah Bradley MD [address] [place] [address] Social History Tobacco Use Types Packs/Day Years [...] Description 08/20/2025 10:45 AM EST Office Visit [facility] MEDICINE [address] [place] [phone] Sarah Bradley MD [address] [place] [phone] 09/11/2025 1:00 PM EST Office Visit [facility] MEDICINE [address] [place] [phone] Sarah Bradley MD [address] [place] [phone] documented as of this encounter Visit Diagnoses Not on filedocumented in this encounter Additional Health Concerns Assessment Noted Time PHQ-9 Depression Total Score: 0 02/19/20 24 1:15 PM EDT documented as of this encounter Care Teams Backhoe Operator Relationship Specialty Start Date End Date Sarah Bradley MD [address] [place] [phone] PCP - General Family Medicine 06/22/18 Bruce Cruz RN [address] [place] [address] 140[address] Registered Nurse Family Medicine 01/15/25 05/22/25 Veronica Preston 01/15/25 06/03/25 Aisha Savage Airplane Electrical RepairerSubstation Operator Chief 04/11/24 documented as of this encounter
--- OUTSIDE RECORDS SUMMARY | 2025-07-15 10:53 | XMS_ITS | Clinical Summary ---
Author Organization [employer] Address [address] [facility] [address] [place] [address] Care Team Providers Care Lodge Officer Name Role Phone Sarah Bradley MD Primary [...] Provider, Generic External Data 06/03/2025 Patient Outreach [facility] [address] [place] [address] Sarah Bradley MD Care Coordination (C3/CM F/U) 05/22/2025 Patient Outreach [facility] [address] [place] [address] Sarah Bradley MD Care Management (C3CM- follow up call) 05/16/2025 Patient Outreach [facility] [address] [place] [address] Sarah Bradley MD 05/13/2025 Orders Only GENERIC EXTERNAL DATA DEPARTMENT Provider, Generic External Data 05/12/2025 Patient Outreach [facility] [address] [place] [address] Sarah Bradley MD Care Coordination (C3/CM F/u) 04/29/2025 Orders Only GENERIC EXTERNAL DATA DEPARTMENT Provider, Generic External Data 04/25/2025 Patient Outreach [facility] [address] [place] [address] Sarah Bradley MD from Last 3 Months Immunizations Immunization Administration [...] 03/25/2025 1:28 PM EDT Plan of Treatment Upcoming Encounters Date Type Department Care Team (Late st Contact Info) Description 08/20/2025 10:45 AM EST Office Visit [facility] [address] [place] [phone] Sarah Bradley MD [address] [place] [phone] 09/11/2025 1:00 PM EST Office Visit [facility] [address] [place] [phone] Sarah Bradley MD [address] [place] [phone] Health Maintenance Due Date Last Done Comments [...] Additional history exists COVID-19 Vaccine ( - 2024- season) 2025 08/24/2021 Influenza Vaccine (#1) 2025 [...] TOTAL Routine 03/25/2025 1:35 PM EDT Prediabetes LIPID PANEL, STANDARD Routine 09/30/2024 9:07 AM [...] Creatinine, Serum 0.57 0.5 - 1.4 mg/dL [facility] Estimated Glomerular Filt Rate >60 [facility] Comment:Chronic Kidney Disea se: Estimated GFR < 60 mL/min/[id number] Kidney Disease: Estimated GFR < 15 mL/min/1.73m2 06/17/2025 8:05 AM EDT 06/17/2025 8:05 AM EDT us Generic External Data Provider LAB BLOOD ORDERAB LES Final Result [facility] [address] [place] [phone] * (ABNORMAL) BUN (Blood Urea Nitrogen) (06/17/2025 8:05 AM EDT) Urea Nitrogen (BUN) 17(H) 9 - 16 mg/dL [facility] 06/17/2025 8:05 AM EDT 06/17/2025 8:05 AM EDT Generic External Data Provider LAB BLOOD ORDERAB LES Final Result Performing Organization Address [facility] de Phone Number [facility] [address] [place] [phone] * PTH, Intact Without Calcium (06/17/2025 8:05 AM EDT) Only the most recent of2 resultswithin the time period is included. Pathologist [facility] Parathyroid Hormone, Intact 56.3 8.7 - 77.1 pg/mL [facility] 06/17/2025 8:05 AM EDT 06/17/2025 8:05 AM EDT Generic External Data Provider LAB BLOOD ORDERAB LES Final Result Performing Organization Address [facility] Number [facility] [address] [place] [phone] * Magnesium (06/17/2025 8:05 AM EDT) Only the most recent of2 resultswithin the time period is included. Pathologist [facility] Magnesium 2.0 1.6 - 2.6 mg/dL [facility] 06/17/2025 8:05 AM EDT 06/17/2025 8:05 AM EDT Generic External Data Provider LAB BLOOD ORDERAB LES Final Result Performing Organization Address [facility] Phone Number [facility] [address] [place] [phone] * Electrolyte Panel (06/17/2025 8:05 AM EDT) Only the most recent of2 resultswithin the time period is included. Sodium 140 135 - 145 mmol/L [facility] Potassium 3.5 3.3 - 5.1 mmol/L [facility] Chloride 107 96 - 108 mmol/L [facility] Carbon Dioxide 25 22 - 29 mmol/L [facility] Anion Gap 12 12 - 20 [facility] 06/17/2025 8:05 AM EDT 06/17/2025 8:05 AM EDT us Generic External Data Provider LAB BLOOD ORDERAB LES Final Result Performing Organization Address [facility] Co de Phone Number [facility] [address] [place] [phone] * Calcium (05/13/2025 8:53 AM EDT) Calcium 8.6 8.4 - 10.2 mg/dL [facility] 05/13/2025 8:53 AM EDT 05/13/2025 8:53 AM EDT Generic External Data Provider LAB BLOOD ORDERAB LES Final Result Performing Organization Address [facility] de Phone Number [facility] [address] [place] [phone] * (ABNORMAL) Basic Metabolic Panel (04/29/2025 11:55 AM EDT) Pathologist [facility] Sodium 139 135 - 145 mmol/L [facility] Potassium 3.7 3.3 - 5.1 mmol/L [facility] Chloride 108 96 - 108 mmol/L [facility] Carbon Dioxide 25 22 - 29 mmol/L [facility] Anion Gap 10(L) 12 - 20 [facility] Urea Nitrogen (BUN) 15 9 - 16 mg/dL [facility] Creatinine, Serum 0.64 0.5 - 1.4 mg/dL [facility] Estimated Glomerular Filt Rate >60 [facility] Comment:Chronic Kidney Disea se: Estimated GFR < 60 mL/min/[id number] Kidney Disease: Estimated GFR < 15 mL/min/1.73m2 Glucose 91 60 - 115 mg/dL [facility] Calcium 8.8 8.4 - 10.2 mg/dL [facility] 04/29/2025 11:5 5 AM EDT 04/29/2025 11:55 AM EDT us Generic External Data Provider LAB BLOOD ORDERAB LES Final Result [facility] [address] [place] [phone] * POCT HGB A1C (03/25/2025 1:35 PM EDT) Hemoglobin A1C 5.0 4.0 - 5.7 % QC Media Lot # [id number] Lot# Expiration Date Blood 03/25/2025 1:35 PM EDT us Sarah Galdamez MD POINT OF CARE TEST EN TER/EDIT ORDERABLES Final Result * (ABNORMAL) Lipid Panel, Standard (09/30/2024 9:07 AM EST) Triglycerides 150(H) <150 mg/dL [facility] Comment:Desirable Triglyceri de: less than 150 mg/dLBorderline High Triglyceride 150-199 mg/dLHigh Triglyceride: 200-499 mg/dLVery High Triglyceride: greater than or equal to 5OO mg/dL Cholesterol 170 <200 mg/dL [facility] Comment:Desirable Cholestero l: less than 200 mg/dLBorderline High Cholesterol: 200-239 mg/dLHigh Cholesterol: greater than 239 mg/dL LDL Cholesterol Calculated 101(H) <100 mg/dL [facility] Comment:Desirable LDL: less than 100 mg/dLNear Optimal/Above Optimal LDL: 110- 129 mg/dLBorderline High LDL: 130-159 mg/dLHigh LDL: 160-189 mg/dLVery High LDL: greater than or equal to 190 mg/dL HDL Cholesterol 39(L) >40 mg/dL [facility] Comment:Desirable HDL: great er than 40 mg/dL Note: This HDL assay may give artificially low results in patients with liver disease. 09/30/2024 9:07 AM EST 09/30/2024 9:07 AM EST us Generic External Data Provider LAB BLOOD ORDERAB LES Final Result Performing Organization Address [facility] Co de Phone Number [facility] [address] [place] [phone] * Hm Pap Smear (02/21/2023) Historical Provider MD HEALTH MAINTENANCE Final Result * HPV E6/E7 RFLX CLAIRE 16 18/45 (12/08/2021 10:43 AM EDT) HPV mRNA E6/E7 rflx Not Detected Not Detected [facility] Comment: Methodology: Hand Bootmaker-Mediated Amplification This assay detects E6/E7 viral messenger RNA (mRNA) from 14 high-risk HPV types (16,18,31,33,35,39,45,51,52,56,58,59,66,68). The analytical performance characteristics of this assay have been determined by [employer]. The modifications have not been cleared or approved by the FDA. This assay has been validated pursuant to the CLIA regulations and is used for clinical purposes. For additional information, please refer to http://education.[employer]/faq/PIG014k8 (This link if provided for information/ educational purposes only.) THIS TEST WAS PERFORMED AT: [employer] [address] [place] [address],[place] [phone] KLAUS BRASHER MD 12/08/2021 10:4 3 AM EDT us Laine Zamora HISTORICAL/NON ORDERABLE LABS Fi nal Result Performing Organization Address City/[facility]/ZIP Co de Phone Number [facility] [address] * HEPATITIS C ANTIBODY (11/16/2019 10:03 AM EDT) HEPATITIS C ANTIBODY [facility] Comment: Antibodies to HCV not detected; does not exclude early acute HCV infection. 11/16/2019 10:0 3 AM EDT Laine Sera HISTORICAL/NON ORDERABLE LABS Fi nal Result Performing Organization Address [facility] de Phone Number [facility] [address] * HIV AB/AG (11/16/2019 10:03 AM [...] of detection of this assay. The [employer] HIV Ag/Ab Combo assay result and supplemental assay results should be interpreted in conjunction with the patient's clinical presentation, history and other laboratory results. If the results are inconsistent with clinical evidence, additional testing is suggested to confirm the result. 11/16/2019 10:0 3 AM EDT Lanie Sera HISTORICAL/NON ORDERABLE LABS Fi nal Result Performing Organization Address [facility] Phone Number [facility] [address] from Last 3 Months or Most Recently Relevant to Health Maintenance Insurance [facility] C3 DENTAL-[facility] MEDICAID STAND ADULT Care Teams Lodge Officer Relationship Specialty Start Date End Date Sarah Bradley MD [address] [place] [address] PCP - General Family Medicine 06/22/18 Aisha Savage Dietitian ChiefForestry Aid 04/11/24
--- OUTSIDE RECORDS SUMMARY | 2025-07-15 10:53 | XMS_ITS | Encounter Summary ---
Author Organization [employer] Address [address] [facility] 7t [place] [address] Care Team Providers Care Superintendent Landfill Operations Name Role Phone Sarah Bradley MD Primary Care Provide r Bruce Cruz RN Unavailable [phone] Veronica Preston Unavailable Encounter Details Date Type Department Care Team (Late Contact Info) Description 01/27/2023 Abstract [facility] [address] [place] [address] Sarha Bradley MD [address] [place] [address] Social History Tobacco Use Types Packs/Day Years [...] Description 08/20/2025 10:45 AM EST Office Visit [address] [address] Sarah Bradley MD [address] [place] [phone] 09/11/2025 1:00 PM EST Office Visit [address] [address] Sarah Bradley MD [address] [place] [address] documented as of this encounter Procedures Procedure Name Priority Date/Time Associated Diagnosis Comments PAP/HPV Routine 12/09/2021 12:00 AM EDT documented in this encounter Results * Pap Smear (12/09/2021 12:00 AM EDT) us Historical Provider HEALTH MAINTENANCE Final Result documented in this encounter Visit Diagnoses Not on filedocumented in this encounter Additional Health Concerns Assessment Noted Time PHQ-9 Depression Total Score: 0 01/18/20 23 10:22 AM EDT documented as of this encounter Care Teams Superintendent Landfill Operations Relationship Specialty Start Date End Date Sarah Bradley MD [address] [place] [address] PCP - General Family Medicine 06/22/18 Bruce Cruz, RN [address] [place] [phone] Registered Nurse Family Medicine 01/15/25 05/22/25 Veronica Preston 01/15/25 06/03/25 Aisha Savage Mobile Disc JockeyInternational Sales Manager 04/11/24 documented as of this encounter
--- OUTSIDE RECORDS SUMMARY | 2025-07-15 10:53 | XMS_ITS | Clinical Summary ---
Author Organization [employer] [facility] ity Address [address] [place] [address] Care Team Providers Care Conductor Freight Name Role Phone Unavailable Primary Care Provider [...] series) 2014 Depression Screening 09/04/2024 COVID-19 Vaccine (2024-2 6 season) 2025 Influenza Vaccine (#1) 2025 RSV [...]
== END 2025-07-15 13:58 | disposition home or self-care (01) ==
LOC: HO.HWSM 09:41
PROVIDERS: PCP Internal Medicine; Visit Provider Advanced Practice Midwife
DX: Z01.419 Encounter for gynecological examination (general) (routine) without abnormal findings (principal); N81.89 Other female genital prolapse; Z78.9 Other specified health status; Z98.84 Bariatric surgery status
CPT/HCPCS: 99395

== ENCOUNTER → 2025-07-15 09:41 | Outpatient (BNVA) | payer MEDICAID, SELFPAY | PROVIDERS: PCP Internal Medicine; Visit Provider Advanced Practice Midwife | DX: N81.89 Other female genital prolapse (principal); Z87.42 Personal history of other diseases of the female genital tract; Z78.9 Other specified health status; Z98.84 Bariatric surgery status | CPT/HCPCS: 99395 ==

== ENCOUNTER 2025-07-23 12:59 | Outpatient (AMB) | payer MEDICAID, SELFPAY ==
--- NOTE | 2025-07-23 13:01 | MHC.OFFVISWM ---
VS Expanded 07/23/25 13:16 BP 132/80 Blood Pressure Location Rt brachial Blood Pressure Position Sitting Pulse 68 Pulse Source Pulse Oximeter Temp 97.4 F Temperature Source Temporal Artery Scan Pulse Oximetry 100 Oxygen Delivery Method Room Air Height 4 ft 11 in Weight 127 lb 12.8 oz BMI 25.8 Body Fat % 28.0 Body Fat Mass 5.8 Fat Free Mass 92.0 Visceral Fat Rating 4.0 Body Water % 51.5 Body Water Mass 65.6 Muscle Mass/Score 87.4 Basal Metabolic Rate/Score 1,257 Intake Visit Reasons: OV PO LSG 01/14/25 Roof Cement And Paint Maker Helper Required: Yes [employer] Maker Helper Services: [employer] C[employer] Paint Maker Helper Present [employer] Paint Maker Helper Name: Tee Osborn [id number] Information Interpreted: clinical only Allergies latex (LATEX) Allergy (Intermediate, Verified 07/23/25 13:18) HANDS SWELL Medication List - Last Reconciled 07/23/25 by Brenna Storey CNP levothyroxine 137 mcg PO DAILY@0600 spironolactone 25 mg PO BID HPI Comments Details: 40?yo female s/p LSG on?01/14/2025. Presents for 6 month post op visit. Weight at last visit 140.2 pounds, with a BMI of 28.3. Weight today 127.8 lbs, BMI 25.8. This represents 60 lbs weight loss (initial weight 187.8 lbs) since starting the program on 09/20/2024 Following with nephrology for potassium fluctuations. Reports doing well. At last visit she reported having to travel due to caring for her mother. Current meal plan includes: 8-10am: celebrate rebuild 1/2 scoop 11am-1pm: celebrate bar 3-5pm: another bar 6pm: dinner with 3 forks protein and 3 forks veg (broccoli) 8-10pm: another shake Drinking 50-60 oz water Exercise routine includes: walking outside, 2 days per day, 1 hr 45 min, joined [employer] 3 x per week, treadmill 300-400 PFSH Medical History (Updated 07/15/25 @ 11:03 by Chelsi Orta CNM) Cervical cancer screening BMI 37.0-37.9, adult Encounter for IUD removal Prediabetes IUD check up Encounter for IUD insertion Left breast lump Well woman exam Family planning Hx of transfusion of packed red blood cells Migraine Seizures Non-insulin dependent type 2 diabetes mellitus Sleep apnea treated with continuous positive airway pressure (CPAP) Hypothyroidism Elevated cholesterol Obesity (BMI 30-39.9) Supraumbilical hernia HTN (hypertension) Anemia History of hypothyroidism Diastasis recti Depression Asthma GERD (gastroesophageal reflux disease) Surgical History S/P laparoscopic sleeve gastrectomy History of esophagogastroduodenoscopy (EGD) Hx of section History of umbilical hernia repair (05/13/19) Family History Father No problems noted. Mother HTN (hypertension) Asthma Hyperthyroidism Diabetes Paternal Aunt Breast cancer Son Asthma Son Asthma ADHD Son Asthma Daughter Autism Social History Household Members: Spouse Housing: Apartment Are you a primary health care / medical job titles to a significant other at home: No Do you presently have visiting nurse or other home services: No Alcohol intake: former Comment: Patient gait and balance are steady. Patient Tobacco Use Status: Never used Tobacco service: No Sexual orientation: Straight/Heterosexual Gender identity: Female Female Reproductive History Menstrual Age of Menarche: 13 Assessment & Plan Assessment & Plan (1) S/P laparoscopic sleeve gastrectomy: Code(s): Z98.84 - Bariatric surgery status Category: Surgical Plan: Will order routine labs since she is 6 months post op Continue current meal plan. Given list of healthy food options Follow up: 3 months Orders: Orders Complete Blood Count Auto Diff Today Z98.84 - Bariatric surgery status C Reactive Protein Today Z98.84 - Bariatric surgery status Hemoglobin A1c Today Z98.84 - Bariatric surgery status Vitamin B12 and Folate Today Z98.84 - Bariatric surgery status Ferritin Today Z98.84 - Bariatric surgery status IRON PROFILE Today Z98.84 - Bariatric surgery status Zinc Today Z98.84 - Bariatric surgery status Vitamin D 25-OH Total Today Z98.84 - Bariatric surgery status Insulin Today Z98.84 - Bariatric surgery status Comprehensive Met. Panel Today Z98.84 - Bariatric surgery status TSH reflex Free T4 Today Z98.84 - Bariatric surgery status Lipid Panel Today Z98.84 - Bariatric surgery status Vitamin B1 Today Z98.84 - Bariatric surgery status Vitamin A Today Z98.84 - Bariatric surgery status
[2025-07-23 13:16] VITALS: BP 132/80; PULSE 68; TEMP 36.3; O2SAT 100; BMI 25.8
--- OUTSIDE RECORDS SUMMARY | 2025-07-24 00:50 | XMS_ITS | Clinical Summary ---
Author Organization [employer] Address [address] [facility] 7t [place] [address] Care Team Providers Care Thread Weaver Name Role Phone Sarah Bradley MD Primary [...] Generic External Data 06/03/2025 Patient Outreach [facility] [address] [place] [address] Sarah Bradley MD Care Coordination (C3/CM F/U) 05/22/2025 Patient Outreach [facility] MEDICINE [address] [place] [address] Sarah Bradley MD Care Management (C3CM- follow up call) 05/16/2025 Patient Outreach [facility] & PEDS [address] [place] [address] Sarah Bradley MD 05/13/2025 Orders Only GENERIC EXTERNAL DATA DEPARTMENT Provider, Generic External Data 05/12/2025 Patient Outreach [facility] [address] [place] [address] Sarah Bradley MD Care Coordination (C3/CM F/u) 04/29/2025 Orders Only GENERIC EXTERNAL DATA DEPARTMENT Provider, Generic External Data 04/25/2025 Patient Outreach [facility] [address] [place] [address] Sarah Bradley MD from Last 3 Months [...] Description 08/20/2025 10:45 AM EST Office Visit [facility] MEDICINE [address] [place] [address] Sarah Bradley MD [address] [place] [address] 09/11/2025 1:00 PM EST Office Visit [facility] MEDICINE [address] [place] [address] Sarah Bradley MD [address] [place] [address] Health Maintenance Due Date Last Done Comments [...] Creatinine, Serum 0.57 0.5 - 1.4 mg/dL [facility] Estimated Glomerular Filt Rate >60 [facility] Comment:Chronic Kidney Disea se: Estimated GFR < 60 mL/min/1.30j3Nsfuuw Kidney Disease: Estimated GFR < 15 mL/min/1.73m2 06/17/2025 8:05 AM EDT 06/17/2025 8:05 AM EDT us Generic External Data Provider LAB BLOOD ORDERAB LES Final Result [facility] [address] [place] [phone] * (ABNORMAL) BUN (Blood Urea Nitrogen) (06/17/2025 8:05 AM EDT) Urea Nitrogen (BUN) 17(H) 9 - 16 mg/dL [facility] 06/17/2025 8:05 AM EDT 06/17/2025 8:05 AM EDT Generic External Data Provider LAB BLOOD ORDERAB LES Final Result Performing Organization Address [facility] de Phone Number [facility] [address] [place] [phone] * PTH, Intact Without Calcium (06/17/2025 8:05 AM EDT) Only the most recent of2 resultswithin the time period is included. Pathologist [facility] Parathyroid Hormone, Intact 56.3 8.7 - 77.1 pg/mL [facility] 06/17/2025 8:05 AM EDT 06/17/2025 8:05 AM EDT Generic External Data Provider LAB BLOOD ORDERAB LES Final Result Performing Organization Address [facility] Number [facility] [address] [place] [phone] * Magnesium (06/17/2025 8:05 AM EDT) Only the most recent of2 resultswithin the time period is included. Pathologist [facility] Magnesium 2.0 1.6 - 2.6 mg/dL [facility] 06/17/2025 8:05 AM EDT 06/17/2025 8:05 AM EDT Generic External Data Provider LAB BLOOD ORDERAB LES Final Result Performing Organization Address [facility] Phone Number [facility] [address] [place] [phone] * Electrolyte Panel (06/17/2025 8:05 AM EDT) Only the most recent of2 resultswithin the time period is included. Sodium 140 135 - 145 mmol/L [facility] Potassium 3.5 3.3 - 5.1 mmol/L [facility] Chloride 107 96 - 108 mmol/L [facility] Carbon Dioxide 25 22 - 29 mmol/L [facility] Anion Gap 12 12 - 20 [facility] 06/17/2025 8:05 AM EDT 06/17/2025 8:05 AM EDT us Generic External Data Provider LAB BLOOD ORDERAB LES Final Result Performing Organization Address [facility] Co de Phone Number [facility] [address] [place] [phone] * Calcium (05/13/2025 8:53 AM EDT) Calcium 8.6 8.4 - 10.2 mg/dL [facility] 05/13/2025 8:53 AM EDT 05/13/2025 8:53 AM EDT Generic External Data Provider LAB BLOOD ORDERAB LES Final Result Performing Organization Address [facility] de Phone Number [facility] [address] [place] [address] [phone] * (ABNORMAL) Basic Metabolic Panel (04/29/2025 11:55 AM EDT) Pathologist [facility] Sodium 139 135 - 145 mmol/L [facility] Potassium 3.7 3.3 - 5.1 mmol/L [facility] Chloride 108 96 - 108 mmol/L [facility] Carbon Dioxide 25 22 - 29 mmol/L [facility] Anion Gap 10(L) 12 - 20 [facility] Urea Nitrogen (BUN) 15 9 - 16 mg/dL [facility] Creatinine, Serum 0.64 0.5 - 1.4 mg/dL [facility] Estimated Glomerular Filt Rate >60 [facility] Comment:Chronic Kidney Disea se: Estimated GFR < 60 mL/min/1.70r1Badtqo Kidney Disease: Estimated GFR < 15 mL/min/1.73m2 Glucose 91 60 - 115 mg/dL [facility] Calcium 8.8 8.4 - 10.2 mg/dL [facility] 04/29/2025 11:5 5 AM EDT 04/29/2025 11:55 AM EDT us Generic External Data Provider LAB BLOOD ORDERAB LES Final Result [facility] [address] [place] [phone] * POCT HGB A1C (03/25/2025 1:35 PM EDT) Hemoglobin A1C 5.0 4.0 - 5.7 % QC Media Lot # [id number] Lot# Expiration Date Blood 03/25/2025 1:35 PM EDT us Sarah Galdamez MD POINT OF CARE TEST EN TER/EDIT ORDERABLES Final Result * (ABNORMAL) Lipid Panel, Standard (09/30/2024 9:07 AM EST) Triglycerides 150(H) <150 mg/dL [facility] Comment:Desirable Triglyceri de: less than 150 mg/dLBorderline High Triglyceride 150-199 mg/dLHigh Triglyceride: 200-499 mg/dLVery High Triglyceride: greater than or equal to 5OO mg/dL Cholesterol 170 <200 mg/dL [facility] Comment:Desirable Cholestero l: less than 200 mg/dLBorderline High Cholesterol: 200-239 mg/dLHigh Cholesterol: greater than 239 mg/dL LDL Cholesterol Calculated 101(H) <100 mg/dL [facility] Comment:Desirable LDL: less than 100 mg/dLNear Optimal/Above Optimal LDL: 110- 129 mg/dLBorderline High LDL: 130-159 mg/dLHigh LDL: 160-189 mg/dLVery High LDL: greater than or equal to 190 mg/dL HDL Cholesterol 39(L) >40 mg/dL [facility] Comment:Desirable HDL: great er than 40 mg/dL Note: This HDL assay may give artificially low results in patients with liver disease. 09/30/2024 9:07 AM EST 09/30/2024 9:07 AM EST us Generic External Data Provider LAB BLOOD ORDERAB LES Final Result Performing Organization Address [facility] Co de Phone Number [facility] [address] [place] [phone] * Hm Pap Smear (02/21/2023) Historical Provider MD HEALTH MAINTENANCE Final Result * HPV E6/E7 RFLX CLAIRE 16 18/45 (12/08/2021 10:43 AM EDT) HPV mRNA E6/E7 rflx Not Detected Not Detected [facility] Comment: Methodology: Sales Representative Livestock-Mediated Amplification This assay detects E6/E7 viral messenger RNA (mRNA) from 14 high-risk HPV types (16,18,31,33,35,39,45,51,52,56,58,59,66,68). The analytical performance characteristics of this assay have been determined by [employer]. The modifications have not been cleared or approved by the FDA. This assay has been validated pursuant to the CLIA regulations and is used for clinical purposes. For additional information, please refer to http://education.Logisticare/faq/DJK493v5 (This link if provided for information/ educational purposes only.) THIS TEST WAS PERFORMED AT: [facility] [address] [place] [address],[place] [phone] KLAUS BRASHER MD 12/08/2021 10:4 3 AM EDT us Laine Zamora HISTORICAL/NON ORDERABLE LABS Fi nal Result Performing Organization Address City/[facility]/ZIP Co de Phone Number [facility] [address] * HEPATITIS C ANTIBODY (11/16/2019 10:03 AM EDT) HEPATITIS C ANTIBODY [facility] Comment: Antibodies to HCV not detected; does not exclude early acute HCV infection. 11/16/2019 10:0 3 AM EDT Laine Sera HISTORICAL/NON ORDERABLE LABS Fi nal Result Performing Organization Address [facility] de Phone Number [facility] [address] * HIV AB/AG (11/16/2019 10:03 AM [...] of detection of this assay. The [employer] Chicle Grinder Feeder HIV Ag/Ab Combo assay result and supplemental assay results should be interpreted in conjunction with the patient's clinical presentation, history and other laboratory results. If the results are inconsistent with clinical evidence, additional testing is suggested to confirm the result. 11/16/2019 10:0 3 AM EDT Laine Sera HISTORICAL/NON ORDERABLE LABS Fi nal Result Performing Organization Address [facility] Phone Number [facility] [address] from Last 3 Months or Most Recently Relevant to Health Maintenance Insurance [facility] C3 [facility] MEDICAID STAND ADULT Care Teams Thread Weaver Relationship Specialty Start Date End Date Sarah Bradley MD [address] [place] [address] PCP - General Family Medicine 06/22/18 Aisha Savage Airfield Defence GuardFront End Software Developer 04/11/24
--- OUTSIDE RECORDS SUMMARY | 2025-07-24 00:50 | XMS_ITS | Encounter Summary ---
Author Organization [facility] Address 75 [facility] 7t [place] [address] Care Team Providers Care Pay Station Attendant Name Role Phone Sarah Bradley MD Primary Care Provide r Bruce Cruz RN Unavailable [phone] Veronica Preston Unavailable Encounter Details Date Type Department Care Team (Late Contact Info) Description 01/27/2023 Abstract [facility] MEDICINE [address] [place] [address] Sarah Bradley MD [address] [place] [address] Social History Tobacco Use Types Packs/Day Years [...] Description 08/20/2025 10:45 AM EST Office Visit [address] [address] Sarah Bradley MD [address] [place] [address] 09/11/2025 1:00 PM EST Office Visit [address] [address] Sarah Bradley MD [address] [place] [address] documented as of this encounter Procedures Procedure [...] documented as of this encounter Care Teams Pay Station Attendant Relationship Specialty Start Date End Date Sarah Bradley MD [address] [place] [address] PCP - General Family Medicine 06/22/18 Bruce Cruz, RN [address] [place] [address] Registered Nurse Family Medicine 01/15/25 05/22/25 Veronica Preston 01/15/25 06/03/25 Aisha Savage Warehouse ManPassenger Service Representative 04/11/24 documented as of this encounter
--- OUTSIDE RECORDS SUMMARY | 2025-07-24 00:50 | XMS_ITS | Encounter Summary ---
Author Organization [employer] Address [address] [place] [address] 7t [place] [address] Care Team Providers Care Deputy Head Name Role Phone Sarah Bradley MD Primary Care Provide r Bruce Cruz RN Unavailable [phone] Veronica Preston Unavailable Encounter Details Date Type Department Care Team (Late Contact Info) Description 06/07/2023 Abstract [facility] MEDICINE [address] [place] [phone] Sarah Bradley MD [address] [place] [address] Social History Tobacco Use Types Packs/Day Years [...] Description 08/20/2025 10:45 AM EST Office Visit [facility] MEDICINE [address] [place] [address] [phone] Sarah Bradley MD [address] [place] [address] [phone] 09/11/2025 1:00 PM EST Office Visit [facility] MEDICINE [address] [place], [place] [phone] Sarah Bradley MD [address] [place], [place] [phone] documented as of this encounter Procedures Procedure [...] documented as of this encounter Care Teams Deputy Head Relationship Specialty Start Date End Date Sarah Bradley MD [address] [place] [address] [phone] PCP - General Family Medicine 06/22/18 Bruce Cruz, RN [address] [place] [address] Registered Nurse Family Medicine 01/15/25 05/22/25 Veronica Preston 01/15/25 06/03/25 Aisha Savage Data Warehouse ConsultantTrouble Operator 04/11/24 documented as of this encounter
--- OUTSIDE RECORDS SUMMARY | 2025-07-24 00:50 | XMS_ITS | Encounter Summary ---
Author Organization [employer] Address 75 [facility] 7t [place] [address] Care Team Providers Care Tapping Machine Operator Automatic Name Role Phone Sarah Bradley MD Primary Care Provide r Bruce Cruz RN Unavailable [phone] Veronica Preston Unavailable Encounter Details Date Type Department Care Team (Latest Contact Info) Description 12/15/2020 Abstract [facility] CONVERSIONS Dental, Provider, DDS Social [...] Description 08/20/2025 10:45 AM EST Office Visit [facility] MEDICINE [address] [place] [address] Sarah Bradley MD [address] [place] [address] 09/11/2025 1:00 PM EST Office Visit [facility] MEDICINE [address] [place] [address] Sarah Bradley MD [address] [place] [address] documented as of this encounter Visit Diagnoses Not on filedocumented in this encounter Care Teams Tapping Machine Operator Automatic Relationship Specialty Start Date End Date Sarah Bradley MD [address] [place] [address] PCP - General Family Medicine 06/22/18 Bruce Cruz, MIQUEL [address] [place] [address] Registered Nurse Family Medicine 01/15/25 05/22/25 Veronica Preston 01/15/25 06/03/25 Aisha Savage Hydraulic Billet MakerApprentice Photographer 04/11/24 documented as of this encounter
--- OUTSIDE RECORDS SUMMARY | 2025-07-24 00:50 | XMS_ITS | Encounter Summary ---
Author Organization [employer] Address [address] [facility] [address] 7t [place] [address] Care Team Providers Care Portal Architect Name Role Phone Sarah Bradley MD Primary Care Provide r Bruce Cruz RN Unavailable [phone] Veronica Preston Unavailable Reason for Visit * Reason Onset Date Comments PT1 03/22/2024 Encounter Details Date Type Department Care Team ([facility] st Contact Info) Description 03/22/2024 Telephone [facility] MEDICINE [address] [place], [place] [phone] Sarah Bradley MD [address] [place], [place] [phone] PT1 Social History Tobacco Use Types Packs/Day [...] Yes Provider name or facility name: [facility] Facility Address: [address] [place] [address] Escort needed: Y/N: No Do you have a wheelchair: Y/N: No If yes- Manual or electric: n/a Visits; all future visits documented in this encounter Plan of Treatment Upcoming Encounters Date Type Department Care Team (Late st Contact Info) Description 08/20/2025 10:45 AM EST Office Visit [facility] MEDICINE [address] [place] [address] Sarah Bradley MD [address] [place] [address] 09/11/2025 1:00 PM EST Office Visit [facility] MEDICINE [address] [place] [address] Sarah Bradley MD [address] [place] [address] documented as of this encounter Visit Diagnoses Not on filedocumented in this encounter Additional Health Concerns Assessment Noted Time PHQ-9 Depression Total Score: 0 02/19/20 1:15 PM EDT documented as of this encounter Care Teams Portal Architect Relationship Specialty Start Date End Date Sarah Bradley MD [address] [place] [address] PCP - General Family Medicine 06/22/18 Bruce Cruz, MIQUEL [address] [place] [address] Registered Nurse Family Medicine 01/15/25 05/22/25 Veronica Preston 01/15/25 06/03/25 Aisha Savage Tracer Bullet Section SupervisorNeonatal Social Worker 04/11/24 documented as of this encounter
--- OUTSIDE RECORDS SUMMARY | 2025-07-24 00:50 | XMS_ITS | Encounter Summary ---
Author Organization [employer] Address [address] [facility] [address] 7t [place] [address] Care Team Providers Care Anhydrous Ammonia Production Supervisor Name Role Phone Sarah Bradley MD Primary Care Provide r Bruce Cruz RN Unavailable [phone] Veronica Preston Unavailable Encounter Details Date Type Department Care Team ([facility] st Contact Info) Description 07/26/2024 Telephone [facility] MEDICINE [address] [place] [address] Sarah Bradley MD [address] [place] [address] Social History Tobacco Use Types Packs/Day Years [...] Description 08/20/2025 10:45 AM EST Office Visit [facility] MEDICINE [address] [place] [address] Sarah Bradley MD [address] [place] [phone] 09/11/2025 1:00 PM EST Office Visit [facility] MEDICINE [address] [place] [address] Sarah Bradley MD [address] [place] [address] documented as of this encounter Visit Diagnoses Not on filedocumented in this encounter Additional Health Concerns Assessment Noted Time PHQ-9 Depression Total Score: 0 02/19/20 24 1:15 PM EDT documented as of this encounter Care Teams Anhydrous Ammonia Production Supervisor Relationship Specialty Start Date End Date Sarah Bradley MD [address] [place] [address] PCP - General Family Medicine 06/22/18 Bruce Cruz RN [address] [place] [address] Registered Nurse Family Medicine 01/15/25 05/22/25 Veronica Preston 01/15/25 06/03/25 Aisha Savage Supplier ManagerAssembler Installer General 04/11/24 documented as of this encounter
--- OUTSIDE RECORDS SUMMARY | 2025-07-24 00:51 | XMS_ITS | Encounter Summary ---
Author Organization [employer] Address 75 [facility] 7t [place] [address] Care Team Providers Care Colorist Formulator Name Role Phone Sarah Bradley MD Primary Care Provide r Bruce Cruz RN Unavailable [phone] Veronica Preston Unavailable Encounter Details Date Type Department Care Team ([facility] Contact Info) Description 03/22/2023 Orders Only [facility] MEDICINE [address] [place] [address] [phone] Provider, MD Yessi Social History Tobacco Use [...] Upcoming Encounters Date Type Department Care Team ([facility] Contact Info) Description 08/20/2025 10:45 AM EST Office Visit [address] [address] Sarah Bradley MD [address] [place], [place] [phone] 09/11/2025 1:00 PM EST Office Visit [facility] MEDICINE [address] [place], [place] [phone] Sarah Bradley MD [address] [place], [place] [phone] documented as of this encounter Procedures Procedure [...] documented as of this encounter Care Teams Colorist Formulator Relationship Specialty Start Date End Date Sarah Bradley MD [address] [place], [place] [phone] PCP - General Family Medicine 06/22/18 Bruce Cruz, RN [address] [place] [address] Registered Nurse Family Medicine 01/15/25 05/22/25 Veronica Preston 01/15/25 06/03/25 Aisha Savage Air Traffic Control SupervisorPipeline Dispatcher 04/11/24 documented as of this encounter
--- OUTSIDE RECORDS SUMMARY | 2025-07-24 00:51 | XMS_ITS | Encounter Summary ---
Author Organization [employer] Address 75 [facility] 7t [place] [address] Care Team Providers Care Boiler Operators Supervisor Name Role Phone Sarah Bradley MD Primary Care Provide r Bruce Cruz RN Unavailable [phone] Veronica Preston Unavailable Encounter Details Date Type Department Care Team (Late st Contact Info) Description 03/22/2023 Abstract [facility] MEDICINE [address] [place] [address] Sarah Bradley MD [address] [place] [address] Social History Tobacco Use Types Packs/Day Years [...] Description 08/20/2025 10:45 AM EST Office Visit [facility] MEDICINE [address] [place] [address] Sarah Bradley MD [address] [place] [address] 09/11/2025 1:00 PM EST Office Visit [facility] MEDICINE [address] [place], [place] [phone] Sarah Bradley MD [address] [place] [address] [phone] documented as of this encounter Visit Diagnoses Not on filedocumented in this encounter Additional Health Concerns Assessment Noted Time PHQ-9 Depression Total Score: 0 01/18/20 23 10:22 AM EDT documented as of this encounter Care Teams Boiler Operators Supervisor Relationship Specialty Start Date End Date Sarah Bradley MD [address] [place] [address] PCP - General Family Medicine 06/22/18 Bruce Cruz, MIQUEL [address] [place] [address] Registered Nurse Family Medicine 01/15/25 05/22/25 Veronica Preston 01/15/25 06/03/25 Aisha Savage Carton CatcherElectrical Maintenance Man 04/11/24 documented as of this encounter
== END 2025-07-23 13:55 | disposition home or self-care (01) ==
LOC: HO.HBS 12:59
PROVIDERS: PCP Internal Medicine; Visit Provider Nurse Practitioner
DX: D50.9 Iron deficiency anemia, unspecified (principal); Z98.84 Bariatric surgery status
CPT/HCPCS: 99214

== ENCOUNTER → 2025-07-23 12:59 | Outpatient (BNVA) | payer MEDICAID, SELFPAY | PROVIDERS: PCP Internal Medicine; Visit Provider Nurse Practitioner | DX: D50.9 Iron deficiency anemia, unspecified (principal); Z98.84 Bariatric surgery status | CPT/HCPCS: 99212 ==

== ENCOUNTER 2025-07-26 07:19 | Outpatient (REF) | payer MEDICAID, SELFPAY ==
--- OUTSIDE RECORDS SUMMARY | 2025-07-26 07:24 | XMS_ITS | Encounter Summary ---
Author Organization [employer] Address 75 [facility] 7t [place] [address] Care Team Providers Care Certified Maintenance Welder Name Role Phone Sarah Bradley MD Primary Care Provide r Bruce Cruz RN Unavailable [phone] Veronica Preston Unavailable Encounter Details Date Type Department Care Team (Late st Contact Info) Description 03/22/2023 Abstract [facility] MEDICINE [address] [place] [address] Sarah Bradley MD [address] [place] [address] Social History Tobacco Use Types Packs/Day Years [...] Description 08/20/2025 10:45 AM EST Office Visit [facility] MEDICINE [address] [place] [phone] Sarah Bradley MD [address] [place] [phone] 09/11/2025 1:00 PM EST Office Visit [facility] MEDICINE [address] [place], [place] [phone] Sarah Bradley MD [address] [place] [address] [phone] documented as of this encounter Visit Diagnoses Not on filedocumented in this encounter Additional Health Concerns Assessment Noted Time PHQ-9 Depression Total Score: 0 01/18/20 23 10:22 AM EDT documented as of this encounter Care Teams Certified Maintenance Welder Relationship Specialty Start Date End Date Sarah Bradley MD [address] [place] [address] PCP - General Family Medicine 06/22/18 Bruce Cruz, MIQUEL [address] [place] [address] Registered Nurse Family Medicine 01/15/25 05/22/25 Veronica Preston 01/15/25 06/03/25 Aisha Savage Shop LeadIndustrial Controls Technician 04/11/24 documented as of this encounter
--- OUTSIDE RECORDS SUMMARY | 2025-07-26 07:24 | XMS_ITS | Clinical Summary ---
Author Organization [employer] Address [address] [facility] 7t [place] [address] Care Team Providers Care Lead Programmer Name Role Phone Sarah Bradley MD Primary [...] Provider, Generic External Data 06/03/2025 Patient Outreach [facility] [address] [place] [address] Sarah Bradley MD Care Coordination (C3/CM F/U) 05/22/2025 Patient Outreach [facility] [address] [place] [address] Sarah Bradley MD Care Management (C3CM- follow up call) 05/16/2025 Patient Outreach [facility] [address] [place] [address] Sarah Bradley MD 05/13/2025 Orders Only GENERIC EXTERNAL DATA DEPARTMENT Provider, Generic External Data 05/12/2025 Patient Outreach [facility] [address] [place] [address] Sarah Bradley MD Care Coordination (C3/CM F/u) 04/29/2025 Orders Only GENERIC EXTERNAL DATA DEPARTMENT Provider, Generic External Data 04/25/2025 Patient Outreach [facility] [address] [place] [address] Sarah Bradley MD from Last 3 Months [...] Description 08/20/2025 10:45 AM EST Office Visit [facility] [address] [place] [address] Sarah Bradley MD [address] [place] [phone] 09/11/2025 1:00 PM EST Office Visit [facility] [address] [place] [address] Sarah Bradley MD [address] [place] [phone] Health Maintenance Due Date Last Done Comments [...] Creatinine, Serum 0.57 0.5 - 1.4 mg/dL [facility] Estimated Glomerular Filt Rate >60 [facility] Comment:Chronic Kidney Disea se: Estimated GFR < 60 mL/min/1.55w6Mtbtrc Kidney Disease: Estimated GFR < 15 mL/min/1.73m2 06/17/2025 8:05 AM EDT 06/17/2025 8:05 AM EDT us Generic External Data Provider LAB BLOOD ORDERAB LES Final Result [facility] [address] [place] [phone] * (ABNORMAL) BUN (Blood Urea Nitrogen) (06/17/2025 8:05 AM EDT) Urea Nitrogen (BUN) 17(H) 9 - 16 mg/dL [facility] 06/17/2025 8:05 AM EDT 06/17/2025 8:05 AM EDT Generic External Data Provider LAB BLOOD ORDERAB LES Final Result Performing Organization Address [facility] de Phone Number [facility] [address] [place] [phone] * PTH, Intact Without Calcium (06/17/2025 8:05 AM EDT) Only the most recent of2 resultswithin the time period is included. Pathologist [facility] Parathyroid Hormone, Intact 56.3 8.7 - 77.1 pg/mL [facility] 06/17/2025 8:05 AM EDT 06/17/2025 8:05 AM EDT Generic External Data Provider LAB BLOOD ORDERAB LES Final Result Performing Organization Address [facility] Number [facility] [address] [place] [phone] * Magnesium (06/17/2025 8:05 AM EDT) Only the most recent of2 resultswithin the time period is included. Pathologist [facility] Magnesium 2.0 1.6 - 2.6 mg/dL [facility] 06/17/2025 8:05 AM EDT 06/17/2025 8:05 AM EDT Generic External Data Provider LAB BLOOD ORDERAB LES Final Result Performing Organization Address [facility] Phone Number [facility] [address] [place] [phone] * Electrolyte Panel (06/17/2025 8:05 AM EDT) Only the most recent of2 resultswithin the time period is included. Sodium 140 135 - 145 mmol/L [facility] Potassium 3.5 3.3 - 5.1 mmol/L [facility] Chloride 107 96 - 108 mmol/L [facility] Carbon Dioxide 25 22 - 29 mmol/L [facility] Anion Gap 12 12 - 20 [facility] 06/17/2025 8:05 AM EDT 06/17/2025 8:05 AM EDT us Generic External Data Provider LAB BLOOD ORDERAB LES Final Result Performing Organization Address [facility] Co de Phone Number [facility] [address] [place] [phone] * Calcium (05/13/2025 8:53 AM EDT) Calcium 8.6 8.4 - 10.2 mg/dL [facility] 05/13/2025 8:53 AM EDT 05/13/2025 8:53 AM EDT Generic External Data Provider LAB BLOOD ORDERAB LES Final Result Performing Organization Address [facility] de Phone Number [facility] [address] [place] [phone] * (ABNORMAL) Basic Metabolic Panel (04/29/2025 11:55 AM EDT) Pathologist [facility] Sodium 139 135 - 145 mmol/L [facility] Potassium 3.7 3.3 - 5.1 mmol/L [facility] Chloride 108 96 - 108 mmol/L [facility] Carbon Dioxide 25 22 - 29 mmol/L [facility] Anion Gap 10(L) 12 - 20 [facility] Urea Nitrogen (BUN) 15 9 - 16 mg/dL [facility] Creatinine, Serum 0.64 0.5 - 1.4 mg/dL [facility] Estimated Glomerular Filt Rate >60 [facility] Comment:Chronic Kidney Disea se: Estimated GFR < 60 mL/min/1.28n1Rgyexm Kidney Disease: Estimated GFR < 15 mL/min/1.73m2 Glucose 91 60 - 115 mg/dL [facility] Calcium 8.8 8.4 - 10.2 mg/dL [facility] 04/29/2025 11:5 5 AM EDT 04/29/2025 11:55 AM EDT us Generic External Data Provider LAB BLOOD ORDERAB LES Final Result [facility] [address] [place] [phone] [phone] * POCT HGB A1C (03/25/2025 1:35 PM EDT) Hemoglobin A1C 5.0 4.0 - 5.7 % QC Media Lot # [id number] Lot# Expiration Date Blood 03/25/2025 1:35 PM EDT us Sarah Galdamez MD POINT OF CARE TEST EN TER/EDIT ORDERABLES Final Result * (ABNORMAL) Lipid Panel, Standard (09/30/2024 9:07 AM EST) Triglycerides 150(H) <150 mg/dL [facility] Comment:Desirable Triglyceri de: less than 150 mg/dLBorderline High Triglyceride 150-199 mg/dLHigh Triglyceride: 200-499 mg/dLVery High Triglyceride: greater than or equal to 5OO mg/dL Cholesterol 170 <200 mg/dL [facility] Comment:Desirable Cholestero l: less than 200 mg/dLBorderline High Cholesterol: 200-239 mg/dLHigh Cholesterol: greater than 239 mg/dL LDL Cholesterol Calculated 101(H) <100 mg/dL [facility] Comment:Desirable LDL: less than 100 mg/dLNear Optimal/Above Optimal LDL: 110- 129 mg/dLBorderline High LDL: 130-159 mg/dLHigh LDL: 160-189 mg/dLVery High LDL: greater than or equal to 190 mg/dL HDL Cholesterol 39(L) >40 mg/dL [facility] Comment:Desirable HDL: great er than 40 mg/dL Note: This HDL assay may give artificially low results in patients with liver disease. 09/30/2024 9:07 AM EST 09/30/2024 9:07 AM EST us Generic External Data Provider LAB BLOOD ORDERAB LES Final Result Performing Organization Address [facility] Co de Phone Number [facility] [address] [place] [phone] [phone] * Hm Pap Smear (02/21/2023) Historical Provider MD HEALTH MAINTENANCE Final Result * HPV E6/E7 RFLX CLAIRE 16 18/45 (12/08/2021 10:43 AM EDT) HPV mRNA E6/E7 rflx Not Detected Not Detected [facility] Comment: Methodology: Civil Structural Engineer-Mediated Amplification This assay detects E6/E7 viral messenger RNA (mRNA) from 14 high-risk HPV types (16,18,31,33,35,39,45,51,52,56,58,59,66,68). The analytical performance characteristics of this assay have been determined by [employer]. The modifications have not been cleared or approved by the FDA. This assay has been validated pursuant to the CLIA regulations and is used for clinical purposes. For additional information, please refer to http://education.CPower/faq/QLO165r8 (This link if provided for information/ educational purposes only.) THIS TEST WAS PERFORMED AT: [facility] [address] [place] [address],[place] [address] KLAUS BRASHER MD 12/08/2021 10:4 3 AM EDT us Laine Zamora HISTORICAL/NON ORDERABLE LABS Fi nal Result Performing Organization Address City/[facility]/ZIP Co de Phone Number [facility] [address] * HEPATITIS C ANTIBODY (11/16/2019 10:03 AM EDT) HEPATITIS C ANTIBODY [facility] Comment: Antibodies to HCV not detected; does not exclude early acute HCV infection. 11/16/2019 10:0 3 AM EDT Laine Sera HISTORICAL/NON ORDERABLE LABS Fi nal Result Performing Organization Address [facility] de Phone Number [facility] [address] * HIV AB/AG (11/16/2019 10:03 AM [...] of detection of this assay. The [employer] Human Performance Professor HIV Ag/Ab Combo assay result and supplemental assay results should be interpreted in conjunction with the patient's clinical presentation, history and other laboratory results. If the results are inconsistent with clinical evidence, additional testing is suggested to confirm the result. 11/16/2019 10:0 3 AM EDT Laine Sera HISTORICAL/NON ORDERABLE LABS Fi nal Result Performing Organization Address [facility] Phone Number [facility] [address] from Last 3 Months or Most Recently Relevant to Health Maintenance Insurance [facility] C3 [facility]AL-[facility] MEDICAID STAND ADULT Care Teams Lead Programmer Relationship Specialty Start Date End Date Sarah Bradley MD [address] [place] [address] PCP - General Family Medicine 06/22/18 Aisha Savage Mop Machine OperatorBlueprint Blocker 04/11/24
--- OUTSIDE RECORDS SUMMARY | 2025-07-26 07:24 | XMS_ITS | Encounter Summary ---
Author Organization [employer] Address [address] [facility] [address] 7t [place] [address] Care Team Providers Care Supervisor Wet Room Name Role Phone Sarah Bradley MD Primary Care Provide r Bruce Cruz RN Unavailable [phone] Veronica Preston Unavailable Encounter Details Date Type Department Care Team ([facility] st Contact Info) Description 07/26/2024 Telephone [facility] [address] [place] [address] Sarah Bradley MD [address] [place], [place] [phone] Social History Tobacco Use Types Packs/Day Years [...] Description 08/20/2025 10:45 AM EST Office Visit [facility] [address] [place] [phone] Sarah Bradley MD [address] [place] [phone] 09/11/2025 1:00 PM EST Office Visit [facility] [address] [place] [phone] Sarah Bradley MD [address] [place] [phone] documented as of this encounter Visit Diagnoses Not on filedocumented in this encounter Additional Health Concerns Assessment Noted Time PHQ-9 Depression Total Score: 0 02/19/20 24 1:15 PM EDT documented as of this encounter Care Teams Supervisor Wet Room Relationship Specialty Start Date End Date Sarah Bradley MD [address] [place] [phone] PCP - General Family Medicine 06/22/18 Bruce Cruz RN [address] [place] [phone] Registered Nurse Family Medicine 01/15/25 05/22/25 Veronica Preston 01/15/25 06/03/25 Aisha Savage Installer Metal FlooringWafer Slicer 04/11/24 documented as of this encounter
--- OUTSIDE RECORDS SUMMARY | 2025-07-26 07:24 | XMS_ITS | Encounter Summary ---
Author Organization [employer] Address [address] [facility] [address] 7t [place] [address] Care Team Providers Care Channel Marketing Manager Name Role Phone Sarah Bradley MD Primary Care Provide r Bruce Cruz RN Unavailable [phone] Veronica Preston Unavailable Reason for Visit * Reason Onset Date Comments PT1 03/22/2024 Encounter Details Date Type Department Care Team ([facility] st Contact Info) Description 03/22/2024 Telephone [facility] [address] [place], [place] [phone] Sarah Bradley MD [address] [place], [place] [phone] PT1 Social History Tobacco Use Types Packs/Day [...] Y/N: Yes Provider name or facility name: [facility] Facility Address: [address] [place] [address] Escort needed: Y/N: No Do you have a wheelchair: Y/N: No If yes- Manual or electric: n/a Visits; all future visits documented in this encounter Plan of Treatment Upcoming Encounters Date Type Department Care Team (Late st Contact Info) Description 08/20/2025 10:45 AM EST Office Visit [facility] [address] [place] [address] Sarah Bradley MD [address] [place] [address] 09/11/2025 1:00 PM EST Office Visit [facility] [address] [place] [address] Sarah Bradley MD [address] [place] [address] documented as of this encounter Visit Diagnoses Not on filedocumented in this encounter Additional Health Concerns Assessment Noted Time PHQ-9 Depression Total Score: 0 02/19/20 1:15 PM EDT documented as of this encounter Care Teams Channel Marketing Manager Relationship Specialty Start Date End Date Sarah Bradley MD [address] [place] [address] PCP - General Family Medicine 06/22/18 Bruce Cruz, MIQUEL [address] [place] [address] Registered Nurse Family Medicine 01/15/25 05/22/25 Veronica Preston 01/15/25 06/03/25 Aisha Savage Interlocking InstallerManager Pool 04/11/24 documented as of this encounter
--- OUTSIDE RECORDS SUMMARY | 2025-07-26 07:24 | XMS_ITS | Encounter Summary ---
Author Organization [employer] Address [address] [facility] 7t [place] [address] Care Team Providers Care Surveying Technician Name Role Phone Sarah Bradley MD Primary Care Provide r Bruce Cruz RN Unavailable [phone] Veronica Preston Unavailable Encounter Details Date Type Department Care Team (Late Contact Info) Description 01/27/2023 Abstract [facility] [address] [place] [address] Sarah Bradley MD [address] [place] [address] Social History Tobacco Use Types Packs/Day Years [...] Description 08/20/2025 10:45 AM EST Office Visit [address] [address] Sarah Bradley MD [address] [place] [address] 09/11/2025 1:00 PM EST Office Visit [address] [address] Sarah Bradley MD [address] [place] [address] documented as of this encounter Procedures Procedure [...] documented as of this encounter Care Teams Surveying Technician Relationship Specialty Start Date End Date Sarah Bradley MD [address] [place] [address] PCP - General Family Medicine 06/22/18 Bruce Cruz, RN [address] [place] [address] Registered Nurse Family Medicine 01/15/25 05/22/25 Veronica Preston 01/15/25 06/03/25 Aisha Savage Miller Wood FlourCooler Servicer 04/11/24 documented as of this encounter
--- OUTSIDE RECORDS SUMMARY | 2025-07-26 07:24 | XMS_ITS | Clinical Summary ---
Author Organization [employer] [facility] ity Address [address] [place] [address] Care Team Providers Care Loader Demolder Name Role Phone Unavailable Primary Care Provider [...]
--- OUTSIDE RECORDS SUMMARY | 2025-07-26 07:24 | XMS_ITS | Encounter Summary ---
Author Organization [employer] [facility] Address [address] [facility] 7t [place] [address] Care Team Providers Care Graphic Pre Press Trades Worker Name Role Phone Sarah Bradley MD Primary Care Provide r Bruce Cruz RN Unavailable [phone] Veronica Preston Unavailable Encounter Details Date Type Department Care Team ([facility] Contact Info) Description 03/22/2023 Orders Only [facility] [address] [place] [address] [phone] Provider, MD Yessi Social History Tobacco Use [...] Upcoming Encounters Date Type Department Care Team ([facility] Contact Info) Description 08/20/2025 10:45 AM EST Office Visit [address] [address] Sarah Bradley MD [address] [place], [place] [phone] 09/11/2025 1:00 PM EST Office Visit [facility] [address] [place], [place] [phone] Sarah Bradley MD [address] [place], [place] [phone] documented as of this encounter Procedures Procedure [...] documented as of this encounter Care Teams Graphic Pre Press Trades Worker Relationship Specialty Start Date End Date Sarah Bradley MD [address] [place], [place] [phone] PCP - General Family Medicine 06/22/18 Bruce Cruz, RN [address] [place] [address] Registered Nurse Family Medicine 01/15/25 05/22/25 Veronica Preston 01/15/25 06/03/25 Aisha Savage Bottom Precipitator OperatorAssistant Boys Track Coach 04/11/24 documented as of this encounter
--- OUTSIDE RECORDS SUMMARY | 2025-07-26 07:24 | XMS_ITS | Encounter Summary ---
Author Organization [employer] Address [address] [place] [address] 7t [place] [address] Care Team Providers Care Redevelopment Specialist Name Role Phone Sarah Bradley MD Primary Care Provide r Bruce Cruz RN Unavailable [phone] Veronica Preston Unavailable Encounter Details Date Type Department Care Team (Late Contact Info) Description 06/07/2023 Abstract [facility] [address] [place] [phone] Sarah Bradley MD [address] [place] [phone] Social History Tobacco Use Types Packs/Day Years [...] Description 08/20/2025 10:45 AM EST Office Visit [facility] [address] [place] [phone] Sarah Bradley MD [address] [place] [address] [phone] 09/11/2025 1:00 PM EST Office Visit [facility] [address] [place], [place] [phone] Sarah Bradley MD [address] [place], [place] [phone] documented as of this encounter Procedures Procedure [...] documented as of this encounter Care Teams Redevelopment Specialist Relationship Specialty Start Date End Date Sarah Bradley MD [address] [place] [address] [phone] PCP - General Family Medicine 06/22/18 Bruce Cruz, RN [address] [place] [phone] Registered Nurse Family Medicine 01/15/25 05/22/25 Veronica Preston 01/15/25 06/03/25 Aisha Savage Art TherapistArmature Bander 04/11/24 documented as of this encounter
--- OUTSIDE RECORDS SUMMARY | 2025-07-26 07:24 | XMS_ITS | Encounter Summary ---
Author Organization [employer] Address [address] [facility] 7t [place] [address] Care Team Providers Care Repair Tech Name Role Phone Sarah Bradley MD Primary Care Provide r Bruce Cruz RN Unavailable [phone] Veronica Preston Unavailable Encounter Details Date Type Department Care Team (Latest Contact Info) Description 12/15/2020 Abstract [facility] Dental, Provider, DDS Social [...] Description 08/20/2025 10:45 AM EST Office Visit [facility] [address] [place] [phone] Sarah Bradley MD [address] [place] [address] 09/11/2025 1:00 PM EST Office Visit [facility] [address] [place] [phone] Sarah Bradley MD [address] [place] [phone] documented as of this encounter Visit Diagnoses Not on filedocumented in this encounter Care Teams Repair Tech Relationship Specialty Start Date End Date Sarah Bradley MD [address] [place] [address] PCP - General Family Medicine 06/22/18 Bruce Cruz, MIQUEL [address] [place] [phone] Registered Nurse Family Medicine 01/15/25 05/22/25 Veronica Preston 01/15/25 06/03/25 Aisha Savage Social Sciences ChairBackground Check Coordinator 04/11/24 documented as of this encounter
[2025-07-26 07:51] LABS: MANUAL DIFF FLAG NO
[2025-07-26 09:13] LABS: Hematocrit 31.2 % (37.0-47.0); Hemoglobin 9.6 g/dl (12.0-16.0); Imm Gran Abs Auto 0.02 X10*3/uL (0.00-0.03); Imm Gran Pct Auto 0.5 % (0.0-0.4); Lymphocytes Absolute Auto 1.7 X10*3/uL (1.2-4.9); Mean Corpuscular HGB Conc 30.8 g/dl (31.0-35.0); Mean Corpuscular Hemoglobin 25.9 pg (27.0-33.0); Mean Corpuscular Volume 84.1 fL (80.0-98.0); NRBC Abs Auto 0.000 X10*3/uL (0.0-0.012); NRBC Pct Auto 0.0 /100WBC (0.0-0.2); Platelet Count 236 X10*3/uL (160-400); Red Blood Count 3.71 X10*6/uL (4.20-5.50); White Blood Count 4.4 X10*3/uL (4.8-10.8)
[2025-07-26 10:00] LABS: Alanine Aminotransferase 9 U/L (0-31); Albumin Level 4.1 g/dL (3.5-5.0); Alkaline Phosphatase 62 U/L (39-117); Anion Gap 10 (12-20); Aspartate Amino Transferase 16 U/L (5-31); Blood Urea Nitrogen 21 mg/dL (9-16); Calcium 8.6 mg/dL (8.4-10.2); Carbon Dioxide 28 mmol/L (22-29); Chloride 105 mmol/L (96-108); Cholesterol 204 mg/dL (<200); Estimated Glomerular Filt Rate > 60; HDL Cholesterol 50 mg/dL (>40); Iron 28 mcg/dL (30-160); Percent Iron Saturation 8 % (15-50); Potassium 3.5 mmol/L (3.3-5.1); Sodium 139 mmol/L (135-145); Total Iron Binding Capacity 366 mcg/dL (228-428); Total Protein 7.4 g/dL (6.5-8.0); Triglycerides 100 mg/dL (<150); Unsaturated Iron Binding 338 ug/dL
[2025-07-26 10:25] LABS: Ferritin 7 ng/mL (10-122)
[2025-07-26 10:26] LABS: Folate 9.6 ng/mL (> or = 4.0); Vitamin B12 331 pg/mL (200-900)
== END 2025-07-26 07:20 | disposition home or self-care (01) ==
LOC: HO.LAB 07:19
PROVIDERS: PCP Internal Medicine; Visit Provider Nurse Practitioner
DX: Z98.84 Bariatric surgery status (principal)
CPT/HCPCS: 36415; 80053; 80061; 82306; 82607; 82728; 82746; 83036; 83525; 83540; 84425; 84443; 84590; 84630; 85025; 86140

== ENCOUNTER 2025-08-20 11:50 | Outpatient (REF) | payer MEDICAID, SELFPAY ==
--- OUTSIDE RECORDS SUMMARY | 2025-08-20 10:45 | XMS_ITS | Encounter Summary ---
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); Pre-diabetes; Overweight (BMI 25.0-29.9); Mild intermittent asthma, unspecified whether complicated; 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; Uncomplicated asthma, unspecified asthma severity, unspecified whether persistent; Hypokalemia; Encounter for immunization; Encounter for preventive care Social History Tobacco Use Types Packs/Day Years Used Date Smoking Tobacco: Never Passive Smoke Exposure: Never Smokeless Tobacco: Never Alcohol Use Standard Drinks/Week Comments Defer 0 (1 standard drink = 0.6 oz pur e alcohol) Depression Answer Date Recorded Patient Health Questionnaire-9 Score 7 08/20/2025 Patient Health Questionnaire-9 Score 7 08/20/2025 Last PHQ-9: Questionnaire Data Not on file 1 10/21/2024 Housing Stability Answer Date Recorded What is [...] the past 12 months, has t he [employer], gas, oil or water [employer] threatened to shut off services in your home? No 02/06/2024 Depression Answer Date Recorded Patient Health Questionnaire-2 Score 1 08/20/2025 Internet Access Answer Date Recorded Internet Access Q1 Yes 12/20/2024 Internet Access Q2 Not on file 12/20/2024 Comments No Sex and Gender Information Value Date Recorded Sex Assigned at Female 07/04/2022 10:20 AM EDT Legal Sex Female 10:20 AM EDT Gender Identity Female 07/04/2022 10:20 AM EDT Sexual Orientation Choose not to disclose 2021 10:20 AM EDT documented as of this encounter Last Filed Vital Signs Vital Sign Reading Time Taken Comments Blood Pressure 122/88 08/20/2025 10:56 AM EST Pulse 110 08/20/2025 10:56 AM EST Temperature 36.3 C (97.3 F) 08/20/2025 10:56 AM EST Respiratory Rate 22 08/20/2025 10:56 AM EST Oxygen Saturation 98% 08/20/2025 10:56 AM EST Inhaled Oxygen Concentration - - Weight 60.4 kg (133 lb 3.2 oz) 08/20/2025 10:56 AM EST Height 149.9 cm (4' 11 ) 08/20/2025 10:56 AM EST Body Mass Index 26.9 08/20/2025 10:56 AM EST documented in this encounter Functional Status * Over the past 2 weeks, how often have you been bothered by any of the following problems? Question Answer Date of Assessment Author Patient Health Questionnaire -2 Score 1 08/20/2025 10:58 AM Sly Ellison MA * Little interest or pleasure in doing things Answer Date of Assessment Author Several days 08/20/2025 10:58 AM Sly Ellison MA * Feeling down, depressed, or hopeless Answer Date of Assessment Author Not at all 08/20/2025 10:58 AM Sly Ellison MA * Trouble falling or staying asleep, or sleeping too much Answer Date of Assessment Author Several days 08/20/2025 10:58 AM Sly Ellison MA * Feeling tired or having little energy Answer Date of Assessment Author Several days 08/20/2025 10:58 AM Sly Ellison MA * Poor appetite or overeating Answer Date of Assessment Author More than half the days 08/20/2025 10:58 AM Sly Ellison MA * Feeling bad about yourself - or that you are a failure or have let yourself or your family down Answer Date of Assessment Author Not at all 08/20/2025 10:58 AM Sly Ellison MA * Trouble concentrating on things, such as reading the newspaper or watching television Answer Date of Assessment Author More than half the days 08/20/2025 10:58 AM Sly Ellison MA * Moving or speaking so slowly that other people could have noticed? Or the opposite - being so fidgety or restless that you have been moving around a lot more than usual. Answer Date of Assessment Author Not at all 08/20/2025 10:58 AM Sly Ellison MA * Thoughts that you would be better off or hurting yourself in some way Answer Date of Assessment Author Not at all 08/20/2025 10:58 AM Sly Ellison MA * Patient Health Questionnaire-9 Score Answer Date of Assessment Author 7 08/20/2025 10:58 AM Sly Ellison MA * Over the last 2 weeks, how often have you been bothered by any of the following problems? Question Answer Date of Assessment Author Feeling nervous, anxious, or on edge 2 08/20/2025 10:57 AM Sly Ellison MA Not being able to stop or co ntrol worrying 1 08/20/2025 10:57 AM Sly Ellison MA Worrying too much about diff erent things 2 08/20/2025 10:57 AM Sly Ellison MA Trouble relaxing 1 08/20/2025 10:57 AM Sly Ellison MA Being so restless that it is hard to sit still 1 08/20/2025 10:57 AM Sly Ellison MA Becoming easily annoyed or irritable 1 08/20/2025 10:57 AM Sly Ellison MA Feeling afraid as if somethi ng awful might happen 0 08/20/2025 10:57 AM Sly Ellison MA MICHELLE-7 Total Score 8 08/20/2025 10:57 AM Sly Ellison MA * How difficult have these problems made it for you to do your work, take care of things at home, or get along with other people? Answer Date of Assessment Author Somewhat difficult 08/20/2025 10:58 AM Sly Kurtz MA documented as of this encounter Progress Notes * Sarah Galdamez MD - 08/20/2025 10:45 AM EST SUBJECTIVE: Sarah Sheikh is a 40 y.o. year old female who presents for physical Occupation:at home Lives with: and 4 kids Social Hx: denies drinking EtOH, denies smoking cigarettes and denies recreational drug use. Diet:regular Exercise:4 times a week 90 min LMP:08/16/25 regular Pap Smear:up to date Hospitalizations/Surgeries: bariatric surgery, umbilical hernia repair, 3 c-sections Eye Care:up to date Dental Care:upcoming appointment PMHx:on chart Immunizations: Flu vaccine today Sarah Sheikh, 40 years Weight Loss s/p bariatric surgery - Lost 60 lbs over several months, from a high of 193 lbs to current 133 lbs - Weight loss described as drastic Hypokalemia (Low Potassium) - Ongoing issue with kidneys excreting potassium for past 6 months - No family history of similar condition per family inquiry - No cause identified by specialists to date - Potassium levels previously checked, last result was normal - Following specialist recommendations and dietary adjustments Thyroid Disorder - Taking thyroid medication - Thyroid function checked in July 2025 Anxiety - Reports episodes of anxiety - Denies taking medication for anxiety Contact Dermatitis - History of rash on hands triggered by stress or flu vaccine - Uses triamcinolone cream and petroleum jelly for symptom relief - Symptoms improve with regular use of emollients Asthma/Allergy - Rare asthma symptoms currently - Reports significant allergies Iron Deficiency - History of low iron levels affecting dental care Misc - Denies need for medication for stomach issues - Denies fluid retention concerns Social History Social History Narrative Not on file Problem List[1] Allergic rhinitis Anemia Chronic diarrhea Constipation Dyslipidemia Frequent headaches Gastritis Hernia of anterior abdominal wall Umbilical hernia Hypertension Hypoglycemia Hypothyroidism Impaired glucose tolerance test Insomnia Migraine without aura, not refractory Mild intermittent asthma Mixed anxiety and depressive disorder depression Moderate persistent asthma without complication Obstructive sleep apnea syndrome Preeclampsia in period Severe major depression, single episode, without psychotic features (CMS/HCC) (HCC) Severe obesity (CMS/HCC) (HCC) Verruca plantaris Gestational diabetes mellitus (GDM), Toe web intertrigo 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 Weight gain Dental caries Mild asthma with exacerbation PCB (post coital bleeding) Class 2 severe obesity due to excess calories with serious comorbidity in adult Rash due to allergy PCOS (polycystic ovarian syndrome) H/O gestational diabetes mellitus, not currently Hypokalemia Status post bariatric surgery Overweight (BMI 25.0-29.9) Family History[2] Review of Systems Constitutional: Negative. HENT: Negative. Respiratory: Negative. Cardiovascular: Negative. OBJECTIVE: Vitals: 08/20/25 1056 BP: 122/88 BP Location: Left arm Patient Position: Sitting BP Cuff Size: Large adult Pulse: 110 Resp: 22 Temp: 97.3 ??F (36.3 ??C) TempSrc: Oral SpO2: 98% Weight: 133 lb 3.2 oz (60.4 kg) Height: 4' 11 (1.499 m) Physical Exam Constitutional: Appearance: Normal appearance. Cardiovascular: Rate and Rhythm: Normal rate and regular rhythm. Pulmonary: Effort: Pulmonary effort is normal. Breath sounds: Normal breath sounds. Abdominal: General: Abdomen is flat. Palpations: Abdomen is soft. Musculoskeletal: Right lower leg: No edema. Left lower leg: No edema. Neurological: Mental Status: She is alert. Follow Up: Follow up in about 1 year (around 08/20/2026) for physical . Medications Ordered Prior to Encounter[3] Problem List Items Addressed This Visit Hypothyroidism - Primary Relevant Orders TSH W/Reflex to FT4 Overweight (BMI 25.0-29.9) Mild intermittent asthma Relevant Medications albuterol (Ventolin HFA) 108 (90 Base) MCG/ACT inhaler 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 Relevant Medications triamcinolone (Kenalog) 0.1 % cream Hypokalemia Encounter for preventive care See HPI Other Visit Diagnoses Pre-diabetes Relevant Orders POCT Glucose (Completed) Uncomplicated asthma, unspecified asthma severity, unspecified whether persistent Relevant Medications albuterol (Ventolin HFA) 108 (90 Base) MCG/ACT inhaler Encounter for immunization Relevant Orders FLU VACCINE TRIVALENT [id number] (Fluarix) 19 yrs + (Completed) Pre-diabetes: - Continue recommended diet as per specialist. 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 - Ordered thyroid function test to evaluate current status and medication needs. Overweight (BMI 25.0-29.9): - Significant weight loss achieved; current weight is 133 lbs, down from 193 lbs. - Continue current regimen and follow-up as needed. Mild intermittent asthma, unspecified whether complicated: - Asthma symptoms have improved; currently minimal symptoms. - Continue current management. 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: - Allergic contact dermatitis with hand rash triggered by stress and dryness; managed with triamcinolone cream and frequent application of vaseline. - Continue triamcinolone cream and vaseline twice daily as needed. Uncomplicated asthma, unspecified asthma severity, unspecified whether persistent: - Asthma currently well controlled; minimal symptoms reported. - Continue current management. Hypokalemia: - Potassium levels previously low but currently normal; ongoing specialist follow-up for potassium management. - Continue spironolactone and multivitamin as directed by specialist. Maintain dietary recommendations. Ongoing monitoring by specialist. This note was drafted using Ambient (AI) technology. The patient/patient's guardian has been informed and has consented to the use of this technology: Yes [1] Patient Active Problem List Diagnosis Allergic rhinitis Anemia Chronic diarrhea Constipation Dyslipidemia Frequent headaches Gastritis Hernia of anterior abdominal wall Umbilical hernia Hypertension Hypoglycemia Hypothyroidism Impaired glucose tolerance test Insomnia Migraine without aura, not refractory Mild intermittent asthma Mixed anxiety and depressive disorder depression Moderate persistent asthma without complication Obstructive sleep apnea syndrome Preeclampsia in period Severe major depression, single episode, without psychotic features (CMS/HCC) (HCC) Severe obesity (CMS/HCC) (HCC) Verruca plantaris Gestational diabetes mellitus (GDM), Toe web intertrigo 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 Weight gain Dental caries Mild asthma with exacerbation PCB (post coital bleeding) Class 2 severe obesity due to excess calories with serious comorbidity in adult Rash due to allergy PCOS (polycystic ovarian syndrome) H/O gestational diabetes mellitus, not currently Hypokalemia Status post bariatric surgery Overweight (BMI 25.0-29.9) Encounter for preventive care [2] Family History Problem Relation Name Age of Onset Diabetes Mother Hypertension Mother [3] Current Outpatient Medications on File Prior to Visit Medication Sig Dispense Refill betamethasone, augmented, (Diprolene AF) 0.05 % cream Apply topically 2 times daily. 15 g 2 docusate sodium (Colace) 100 MG capsule Take 1 capsule by mouth if needed in the morning and at bedtime for constipation. levothyroxine (Synthroid) 137 MCG tablet Take 137 mcg by mouth before breakfast. 90 tablet 3 pantoprazole (ProtoNix) 40 MG EC tablet Take 1 tablet by mouth before breakfast. Do not crush, chew, or split. sucralfate (Carafate) 1 GM/10ML suspension Take 10 mL by mouth in the morning and 10 mL in the evening. [DISCONTINUED] albuterol (Ventolin HFA) 108 (90 Base) MCG/ACT inhaler inhale 2 puff by inhalation route every 4 - 6 hours as needed 18 g 3 No current facility-administered medications on file prior to visit. documented in this encounter Miscellaneous Notes * Assessment & Plan Note - Sarah Galdamez MD - 08/20/2025 12:25 PM EST Associated Problem(s): Encounter for preventive care See HPI documented in this encounter Plan of Treatment Upcoming Encounters Date Type Department Care Team (Late st Contact Info) Description 09/11/2025 1:00 PM EST Office Visit [facility] [address] [place] [address] Sarah Bradley MD [address] [place] [address] 02/13/2026 9:00 AM EDT Office Visit [facility] [address] [place], [place] [phone] Katy Del Cid, OD [address] [place] [address] documented as of this encounter Procedures Procedure Name Priority Date/Time Associated Diagnosis Comments TSH W/REFLEX TO FT4 Routine 08/20/2025 1 2:01 PM EST Hypothyroidism due to Rebceca thyroiditis POCT GLUCOSE Routine 08/20/2025 10:57 AM EST Pre-diabetes documented in this encounter Results * TSH W/Reflex to FT4 (08/20/2025 12:01 PM EST) TSH reflex Free T4 1.87 0.32 - 4.0 uIU/mL [facility] Blood Venous blood specimen / Unknown 08/20/2025 12:01 PM EST 08/20/2025 2:19 PM EST us Sarah Galdamez MD LAB BLOOD ORDERABLES Final Result 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- Primary Pre-diabetes Other abnormal glucose Overweight (BMI 25.0-29.9) Overweight Mild intermittent asthma, unspecified whether complicated 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 Uncomplicated asthma, unspecified asthma severity, unspecified whether persistent Hypokalemia Hypopotassemia Encounter for immunization Encounter for preventive care documented in this encounter Additional Health Concerns Assessment Noted Time PHQ-9 Depression Total Score: 7 08/20/20 25 10:58 AM EST documented as of this encounter Care Teams Senior Director Relationship Specialty Start Date End Date Sarah Bradley MD [address] [place] [address] PCP - General Family Medicine 06/22/18 Aisha Savage Tire InstallerSkoog Machine Operator 04/11/24 documented as of this encounter
[2025-08-20 15:06] LABS: Anion Gap 11 (12-20); Blood Urea Nitrogen 18 mg/dL (9-16); Calcium 8.9 mg/dL (8.4-10.2); Carbon Dioxide 27 mmol/L (22-29); Chloride 104 mmol/L (96-108); Estimated Glomerular Filt Rate > 60; Magnesium 1.9 mg/dL (1.6-2.6); Potassium 3.5 mmol/L (3.3-5.1); Sodium 138 mmol/L (135-145)
--- OUTSIDE RECORDS SUMMARY | 2025-08-20 15:44 | XMS_ITS | Encounter Summary ---
Author Organization [employer] Address [address] [place] [address] Care Team Providers Care Road Test Examiner Name Role Phone Sarah Bradley MD Primary Care Provide r Bruce Cruz RN Unavailable [phone] Veronica Preston Unavailable Encounter Details Date Type Department Care Team ([facility] Contact Info) Description 07/26/2024 Telephone [facility] [address] [place] [address] Sarah Bradley MD [address] [place] [address] Social History Tobacco Use Types Packs/Day Years [...] Description 09/11/2025 1:00 PM EST Office Visit [facility] [address] [place] [address] Sarah Bradley MD [address] [place] [address] 02/13/2026 9:00 AM EDT Office Visit [facility] [address] [place] [address] Nehemias, Katy, OD [address] [place] [address] documented as of this encounter Visit Diagnoses Not on filedocumented in this encounter Additional Health Concerns Assessment Noted Time PHQ-9 Depression Total Score: 0 02/19/20 24 1:15 PM EDT documented as of this encounter Care Teams Road Test Examiner Relationship Specialty Start Date End Date Sarah Bradley MD [address] [place] [address] PCP - General Family Medicine 06/22/18 Bruce Cruz, MIQUEL [address] [place] [address] Registered Nurse Family Medicine 01/15/25 05/22/25 Veronica Preston 01/15/25 06/03/25 Aisha Savage Director It ProjectInventory Control Clerk 04/11/24 documented as of this encounter
--- OUTSIDE RECORDS SUMMARY | 2025-08-20 15:44 | XMS_ITS | Encounter Summary ---
Author Organization [employer] Address [address] [facility] 7t [place] [address] Care Team Providers Care Desk Clerks Supervisor Name Role Phone Sarah Bradley MD Primary Care Provide r Bruce Cruz RN Unavailable [phone] Veronica Preston Unavailable Encounter Details Date Type Department Care Team (Late st Contact Info) Description 01/27/2023 Abstract [facility] [address] [place] [phone] Sarah Bradley MD [address] [place] [phone] Social History Tobacco Use Types Packs/Day Years [...] Department Care Team (Late Contact Info) Description 09/11/2025 1:00 PM EST Office Visit [facility] [address] [place] [phone] Sarah Bradley MD [address] [place] [address] 02/13/2026 9:00 AM EDT Office Visit [facility] [address] [place] [address] Nehemias, Katy, OD [address] [place] [address] documented as of this encounter Procedures Procedure [...] documented as of this encounter Care Teams Desk Clerks Supervisor Relationship Specialty Start Date End Date Sarah Bradley MD [address] [place], [place] [phone] PCP - General Family Medicine 06/22/18 Bruce Cruz, RN [address] [place] [address] Registered Nurse Family Medicine 01/15/25 05/22/25 Veronica Preston 01/15/25 06/03/25 Aisha Savage Gender Studies ProfessorRetirement Benefits Specialist 04/11/24 documented as of this encounter
--- OUTSIDE RECORDS SUMMARY | 2025-08-20 15:44 | XMS_ITS | Encounter Summary ---
Author Organization [employer] Address [address] [facility] [address]t [place] [address] Care Team Providers Care Telephone Recorder Name Role Phone Sarah Bradley MD Primary Care Provide r Bruce Cruz RN Unavailable [phone] Veronica Preston Unavailable Encounter Details Date Type Department Care Team (Latest Contact Info) Description 12/15/2020 Abstract [facility] Dental, Provider, DDS Social History [...] Description 09/11/2025 1:00 PM EST Office Visit [facility] [address] [place] [address] Sarah Bradley MD [address] [place] [address] 02/13/2026 9:00 AM EDT Office Visit [facility] [address] [place] [address] Katy Del Cid, OD [address] [place] [address] documented as of this encounter Visit Diagnoses Not on filedocumented in this encounter Care Teams Telephone Recorder Relationship Specialty Start Date End Date Sarah Bradley MD [address] [place] [address] PCP - General Family Medicine 06/22/18 Bruce Cruz, MIQUEL [address] [place] [address] Registered Nurse Family Medicine 01/15/25 05/22/25 Veronica Preston 01/15/25 06/03/25 Aisha Savage Liquid Natural Gas Plant OperatorSales Agent Food Vending Service 04/11/24 documented as of this encounter
--- OUTSIDE RECORDS SUMMARY | 2025-08-20 15:44 | XMS_ITS | Encounter Summary ---
Author Organization [employer] Address [address] [address] [place] [address] Care Team Providers Care Ict Project Manager Name Role Phone Sarah Bradley MD Primary Care Provide r Encounter Details Date Type Department Care Team (Latest Contact Info) Description 08/20/2025 Travel Social History Tobacco Use Types Packs/Day Years [...] AM EDT documented as of this encounter Functional Status * Over the [...] Assessment Author Somewhat difficult 08/20/2025 10:58 AM EST Sly Moore [place] documented as of this encounter Plan of Treatment Upcoming Encounters Date Type Department Care Team (Late st Contact Info) Description 09/11/2025 1:00 PM EST Office Visit [facility] [address] [place] [address] Sarah Bradley MD [address] [place] [address] 02/13/2026 9:00 AM EDT Office Visit [facility] [address] [place] [address] Katy Del Cid, OD [address] [place] [address] documented as of this encounter Visit Diagnoses Not on filedocumented in this encounter Additional Health Concerns Assessment Noted Time PHQ-9 Depression Total Score: 7 08/20/20 25 10:58 AM EST documented as of this encounter Care Teams Ict Project Manager Relationship Specialty Start Date End Date Sarah Bradley MD [address] [place] [address] PCP - General Family Medicine 06/22/18 Aisha Savage Motorboat Mechanic InboardRoller Mill Operator 04/11/24 documented as of this encounter
--- OUTSIDE RECORDS SUMMARY | 2025-08-20 15:44 | XMS_ITS | Clinical Summary ---
Author Organization [employer] Address [address] [facility] [address] [place] [address] Care Team Providers Care Compliance Professional Name Role Phone Sarah Bradley MD Primary Care Provide r Allergies Active Allergy Reactions Criticality Noted Date Comments Latex 09/01/2022 Medications docusate sodium (Colace) 100 MG capsule Take 1 capsule by mouth if needed in the morning and at bedtime for constipation. 022 Active levothyroxine (Synthroid) 137 MCG tabletIndications :Acquired hypothyroidism Take 137 mcg by mouth before breakfast. 90 tablet 3 024 Active pantoprazole (ProtoNix) 40 MG EC tablet Take 1 tablet by mouth before breakfast. Do not crush, chew, or split. Active sucralfate (Carafate) 1 GM/10ML suspension Take 10 mL by mouth in the morning and 10 mL in the evening. Active betamethasone, augmented, (Diprolene AF) 0.05 % creamIndications: 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 Apply topically 2 times daily. 15 g 2 025 Active triamcinolone (Kenalog) 0.1 % creamIndications: 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 Apply topically if needed in the morning and at bedtime (pain and swelling). 30 g 2 025 Active albuterol (Ventolin HFA) 108 (90 Base) MCG/ACT inhalerIndication s:Uncomplicated asthma, unspecified asthma severity, unspecified whether persistent inhale 2 puff by inhalation route every 4 - 6 hours as needed 18 g 3 025 Active albuterol (Ventolin HFA) 108 (90 Base) MCG/ACT inhalerIndication s:Uncomplicated asthma, unspecified asthma severity, unspecified whether persistent inhale 2 puff by inhalation route every 4 - 6 hours as needed 18 g 3 025 2024 Discontinued(R eorder (will not trigger notification to Pharmacy)) Active Problems Problem Noted Date Diagnosed Date Overweight (BMI 25.0-29.9) 08/20/2025 Encounter for preventive care 08/20/2025 Assessment & Plan (08/20/2025 12:25 PM EST): See HPI Hypokalemia 03/25/2025 Assessment & Plan (03/25/2025 2:23 [...] Encounters Date Type Department Care Team Description 08/20/2025 10:45 AM EST Office Visit [facility] [address] [place] [phone] Sarah Bradley MD Hypothyroidism due to Rebecca thyroiditis (Primary Dx); Pre-diabetes; Overweight (BMI 25.0-29.9); Mild intermittent asthma, unspecified whether complicated; 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; Uncomplicated asthma, unspecified asthma severity, unspecified whether persistent; Hypokalemia; Encounter for immunization; Encounter for preventive care 08/20/2025 Orders Only GENERIC EXTERNAL DATA DEPARTMENT Provider, Generic External Data 08/20/2025 Travel 08/19/2025 Telephone [facility] [address] [place] [phone] Sarah Bradley MD Chart Prep 08/13/2025 Patient Outreach [address] [phone] Sarah Bradley MD Pre-visit Planning ([facility] screening is completed ) 07/26/2025 Orders Only GENERIC EXTERNAL DATA DEPARTMENT Provider, Generic External Data 06/17/2025 Orders Only GENERIC EXTERNAL DATA DEPARTMENT Provider, Generic External Data 06/03/2025 Patient Outreach [facility] [address] [place] [address] Sarah Bradley MD Care Coordination (C3/CM F/U) 05/22/2025 Patient Outreach [facility] [address] [place] [address] Sarah Bradley MD Care Management (C3CM- follow up call) from Last 3 Months Immunizations Immunization Administration Dates Next Due Influenza injectable quadriv alent IIV4 with preservative 06/22/2018 Influenza injectable quadriv alent preservative free 11/12/2019 Influenza, IIV3, injectable 06/16/2022 Influenza, Split (incl. silvana fied surface antigen) 06/11/2012 Influenza, seasonal, injecta ble, preservative free 08/20/2025 MMR 07/31/2022,05/28/2020 Tdap 06/02/2022,04/23/2020,08/01/2012 Family History Medical [...] the past 12 months, has t he [employer], gas, oil or water company threatened to [...] Mass Index 26.9 08/20/2025 10:56 AM EST Plan of Treatment Upcoming Encounters Date Type Department Care Team (Late st Contact Info) Description 09/11/2025 1:00 PM EST Office Visit [facility] [address] [place] [phone] Sarah Bradley MD [address] [place] [address] 02/13/2026 9:00 AM EDT Office Visit [facility] [address] [place] [address] Katy Del Cid, OD [address] [place] [address] Health Maintenance Due Date Last Done Comments [...] 11/27/2020 Dental X-Ray: Full Mouth 11/29/2023 11/27/2020, 11/02/2008 Dental X-Ray: Bitewings 03/03/2024 03/02/20 23, 02/09/2023, 11/27/2020, Additional history exists COVID-19 Vaccine ( season) 2025 08/24/2021 SDOH Screening 12/20/2025 12/20/2024 Cervical Cancer Screening 02/21/2026 HPV/Cotest 02/21/2026 12/08/2021, 04/0 02/2022, 12/03/2020, Additional history exists Pap Smear 02/21/2026 02/21/2023, 02/03, 12/09/2021, Additional history exists Disability Screening 03/25/2026 03/25/2025 Tobacco Screening 03/25/2026 03/25/2025 Diabetes: Hemoglobin A1C 07/26/2026 025, 03/25/2025, 09/30/2024, Additional history exists Alcohol/Substance Use Screening 08/20/2026 08/20/2025 Depression Screening 08/20/2026 08/20/2025, 08/20/20 25 Lipid Panel 07/26/2030 07/26/2025, 09/05, 01/20/2023, Additional history exists DTaP/Tdap/Td Vaccines (4 - Td or Tdap) 06/02/2032 06/02/2022, 04/23/2020, 08/01/2012 Zoster Vaccines (1 of 2) 2037 RSV Patients and Patients Aged 60 years or older (1 - 1-dose 75+ series) 2062 HIV Screening Completed 11/16/2019 Hepatitis C Screening Completed 11/16/2019 Influenza Vaccine Completed 08/20/2025, , 11/12/2019, Additional history exists HIB Vaccines Aged Out No longer eligi [...] Priority Date/Time Associated Diagnosis Comments MAGNESIUM Routine 08/20/2025 12:01 PM EST BASIC METABOLIC PANEL Routine 08/20/2025 12:01 PM EST TSH W/REFLEX TO FT4 Routine 08/20/2025 1 2:01 PM EST Hypothyroidism due to Rebecca thyroiditis POCT GLUCOSE Routine 08/20/2025 10:57 AM EST Pre-diabetes VITAMIN B1 Routine 07/26/2025 7:48 AM EST VITAMIN A Routine 07/26/2025 7:48 AM EST ZINC Routine 07/26/2025 7:48 AM EST VITAMIN B12/FOLATE, SERUM PANEL Routine 07/26/2025 7:48 AM EST INSULIN Routine 07/26/2025 7:48 AM EST TSH W/REFLEX TO FT4 Routine 07/26/2025 7 :48 AM EST VITAMIN D,25-OH,TOTAL,IA Routine 07/26/2025 7:48 AM EST FERRITIN Routine 07/26/2025 7:48 AM EST LIPID PANEL, STANDARD Routine 07/26/2025 7:48 AM EST C-REACTIVE PROTEIN Routine 07/26/2025 7: 48 AM EST IRON AND TOTAL IRON BINDING CAPACITY Routine 07/26/2025 7:48 AM EST COMPREHENSIVE METABOLIC PANEL Routine 07/26/2025 7:48 AM EST HEMOGLOBIN A1C Routine 07/26/2025 7:48 AM EST CBC WITH AUTO DIFFERENTIAL Routine 07/26/2025 7:48 AM EST PTH, INTACT WITHOUT CALCIUM Routine 06/17/2025 8:05 AM EDT MAGNESIUM Routine 06/17/2025 8:05 AM EDT CREATININE, SERUM Routine 06/17/2025 8:0 5 AM EDT UREA NITROGEN (BUN) Routine 06/17/2025 8 :05 AM EDT ELECTROLYTE PANEL Routine 06/17/2025 8:0 5 AM EDT BITEWINGS - 4 RADIOGRAPHIC IMAGES Routine 03/02/2023 [...] Recently Relevant to Health Maintenance Results * TSH W/Reflex to FT4 (08/20/2025 12:01 PM EST) Only the most recent of2 resultswithin the time period is included. TSH reflex Free T4 1.87 0.32 - 4.0 uIU/mL [facility] Blood Venous blood specimen / Unknown 08/20/2025 12:01 PM EST 08/20/2025 2:19 PM EST us Sarah Galdamez MD LAB BLOOD ORDERABLES Final Result [facility] [address] [place] [phone] * Magnesium (08/20/2025 12:01 PM EST) Only the most recent of2 resultswithin the time period is included. Magnesium 1.9 1.6 - 2.6 mg/dL [facility] 08/20/2025 12:0 1 PM EST 08/20/2025 2:19 PM EST Generic External Data Provider LAB BLOOD ORDERAB LES Final Result Performing Organization Address City/[facility] Co de Phone Number [facility] [address] [place] [phone] * (ABNORMAL) Basic Metabolic Panel (08/20/2025 12:01 PM EST) Sodium 138 135 - 145 mmol/L [facility] Potassium 3.5 3.3 - 5.1 mmol/L [facility] Chloride 104 96 - 108 mmol/L [facility] Carbon Dioxide 27 22 - 29 mmol/L [facility] Anion Gap 11(L) 12 - 20 [facility] Urea Nitrogen (BUN) 18(H) 9 - 16 mg/dL [facility] Creatinine, Serum 0.59 0.5 - 1.4 mg/dL [facility] Estimated Glomerular Filt Rate >60 [facility] Comment:Chronic Kidney Disea se: Estimated GFR < 60 mL/min/1.50x1Mjabwo Kidney Disease: Estimated GFR < 15 mL/min/1.73m2 Glucose 90 60 - 115 mg/dL [facility] Calcium 8.9 8.4 - 10.2 mg/dL [facility] 08/20/2025 12:0 1 PM EST 08/20/2025 2:19 PM EST us Generic External Data Provider LAB BLOOD ORDERAB LES Final Result Performing Organization Address City/[facility]/ZIP Co de Phone Number [facility] [address] [place] [phone] * POCT Glucose (08/20/2025 10:57 AM EST) Glucose Blood, POC 100 60 - 200 mg/dL QC Media Lot # [id number] Lot# Expiration Date Blood Capillary blood specimen / Unknown 08/20/2025 10:57 AM EST us Sarah Galdamez MD POINT OF CARE TEST EN TER/EDIT ORDERABLES Final Result * Vitamin D, 25-Hydroxy, Total, Immunoassay (07/26/2025 7:48 AM EST) Vitamin D 25-OH Total 30.4 >30 ng/mL [facility] Comment: Health Based Reference Values*< 20 ng/mL Lcgpqptdr63-51 ng/mL Insufficient> 30 ng/mL Sufficient*Red ODONNELL. N Engl J Med. 2007;357:266-280There is no well-established upper level of normal vitamin Dlevels. Some laboratories use 50 ng/mL as an upper limit ofnormal. However, toxicity is patient-dependent and may occurat any level. Careful correlation with the patient'spresentation is necessary and, if there is concern forvitamin D toxicity, treatment should be consideredirrespective of the serum level.Care must be taken in interpreting Vitamin D [...] confirmed with another method such as LC-MS/MS. 07/26/2025 7:48 AM EST 07/26/2025 7:48 AM EST us Generic External Data Provider LAB BLOOD ORDERAB LES Final Result [facility] [address] [place] [phone] * Vitamin B12 (Cobalamin) and Folate Panel, Serum (07/26/2025 7:48 AM EST) Vitamin B12 331 200 - 900 pg/mL [facility] Comment:NORMAL 200-900 PG/ML INDETERMINATE 160-199 PG/ML DEFICIENT < 160 PG/ML Folate 9.6 > or = 4.0 ng/mL [facility] Comment:Reference Values:> o r = 4.0 ng/mL< 4.0 ng/mL suggests folate deficiency Methotrexate, aminopterin and folinic acid(leucovorin) are chemotherapeutic agents whose molecularstructures are similar to folate; therefore, the Architectfolate assay cannot be used for patients using these drugs. 07/26/2025 7:48 AM EST 07/26/2025 7:48 AM EST us Generic External Data Provider LAB BLOOD ORDERAB LES Final Result [facility] [address] [place] [phone] * (ABNORMAL) CBC auto differential (07/26/2025 7:48 AM EST) White Blood Count 4.4(L) 4.8 - 10.8 X10*3/uL [facility] Red Blood Count 3.71(L) 4.20 - 5.50 X10*6/uL [facility] Hemoglobin 9.6(L) 12.0 - 16.0 g/dl [facility] Hematocrit 31.2(L) 37.0 - 47.0 % [facility] Mean Corpuscular Volume 84.1 80.0 - 98.0 fL [facility] Mean Corpuscular Hemoglobin 25.9(L) 27.0 - 33.0 pg [facility] Mean Corpuscular HGB Conc 30.8(L) 31.0 - 35.0 g/dl [facility] Red Cell Distribution Width 13.3 11.0 - 16.0 % [facility] Platelet Count 236 160 - 400 X10*3/uL [facility] Mean Platelet Volume 11.2 9.4 - 12.3 fL [facility] Neutrophils Percent Auto 47.6 45 - 73 % [facility] Imm Gran Pct Auto 0.5(H) 0.0 - 0.4 % [facility] Lymphocytes Percent Auto 39.8 20 - 40 % [facility] Monocytes Percent Auto 5.9 2 - 11 % [facility] Eosinophils Percent Auto 5.7(H) 0 - 4 % [facility] Basophils Percent Auto 0.5 0 - 2 % [facility] NRBC Pct Auto 0.0 0.0 - 0.2 /100WBC [facility] Neutrophils Absolute Auto 2.1 2.0 - 8.3 x10*3/uL [facility] Imm Gran Abs Auto 0.02 0.00 - 0.03 X10*3/uL [facility] Lymphocytes Absolute Auto 1.7 1.2 - 4.9 X10*3/uL [facility] Monocytes Absolute Auto 0.3 0.1 - 1.2 X10*3/uL [facility] Eosinophils Absolute Auto 0.3 0.0 - 0.4 X10*3/uL [facility] Basophils Absolute Auto 0.0 0.0 - 0.2 X10*3/uL [facility] NRBC Abs Auto 0.000 0.0 - 0.012 X10*3/uL [facility] 07/26/2025 7:48 AM EST 07/26/2025 7:48 AM EST us Generic External Data Provider LAB BLOOD ORDERAB LES Final Result [facility] [address] [place] [phone] * (ABNORMAL) Iron And Total Iron Binding Capacity (07/26/2025 7:48 AM EST) Iron 28(L) 30 - 160 mcg/dL [facility] Total Iron Binding Capacity 366 228 - 428 mcg/dL [facility] Percent Iron Saturation 8(L) 15 - 50 % [facility] Unsaturated Iron Binding 338 ug/dL [facility] 07/26/2025 7:48 AM EST 07/26/2025 7:48 AM EST us Generic External Data Provider LAB BLOOD ORDERAB LES Final Result Performing Organization Address [facility] de Phone Number [facility] [address] [place] [phone] * Insulin (07/26/2025 7:48 AM EST) Insulin 4 2 - 29 uU/mL [facility] Comment:This test was perfor med using the Urena chemiluminescentmethod. Values obtained from different assay methods cannot beused interchangeably. This insulin assay shows a possiblecross-reactivity with antibodies generated against insulin(immunoreactive insulin and some patients treated withbovine or porcine insulin). Insulin levels may be measuredlower in patients with insulin autoimmune syndrome orfamilial high pro-insulinemia. 07/26/2025 7:48 AM EST 07/26/2025 7:48 AM EST Generic External Data Provider LAB BLOOD ORDERAB LES Final Result Performing Organization Address [facility] de Phone Number [facility] [address] [place] [phone] * Zinc (07/26/2025 7:48 AM EST) Zinc 60 60 - 130 mcg/dL [facility] Comment:This test was develo ped and its analytical performancecharacteristics have been determined by [employer] [place], [place]. It hasnot been cleared or approved by the U.S. Food and DrugAdministration. This assay has been validated pursuantto the CLIA regulations and is used for clinicalpurposes.THIS TEST WAS PERFORMED AT:[id number] [place] [address]PBCWDOEMEERA RAYMOND MD,PHD 07/26/2025 7:48 AM EST 07/26/2025 7:48 AM EST Generic External Data Provider LAB BLOOD ORDERAB LES Final Result Performing Organization Address [facility] Co de Phone Number [facility] [address] [place] [address] [phone] * (ABNORMAL) Vitamin A (07/26/2025 7:48 AM EST) Vitamin A (Retinol) 34(A) 38 - 98 mcg/dL [facility] Comment:Vitamin supplementat ion within 24 hours prior toblood draw may affect the accuracy of the results.This test was developed and its analytical performancecharacteristics have been determined by [employer] [place]. It hasnot been cleared or approved by the U.S. Food and DrugAdministration. This assay has been validated pursuantto the CLIA regulations and is used for clinicalpurposes.THIS TEST WAS PERFORMED AT:[employer] [place] [address]LXLOMPEMEERA RAYMOND MD,PHD 07/26/2025 7:48 AM EST 07/26/2025 7:48 AM EST Generic External Data Provider LAB BLOOD ORDERAB LES Final Result Performing Organization Address [facility] Co de Phone Number [facility] [address] [place] [phone] * C-reactive Protein (07/26/2025 7:48 AM EST) C Reactive Protein <0.10 < or = 0.50 mg/dL [facility] 07/26/2025 7:48 AM EST 07/26/2025 7:48 AM EST us Generic External Data Provider LAB BLOOD ORDERAB LES Final Result Performing Organization Address [facility] Co de Phone Number [facility] [address] [place] [phone] * Vitamin B1 (07/26/2025 7:48 AM EST) Vitamin B1 9 8 - 30 nmol/L [facility] Comment:Vitamin supplementat ion within 24 hours prior toblood draw may affect the accuracy of the results.This test was developed and its analytical performancecharacteristics have been determined by [employer] [place]. It hasnot been cleared or approved by the U.S. Food and DrugAdministration. This assay has been validated pursuantto the CLIA regulations and is used for clinicalpurposes.THIS TEST WAS PERFORMED AT:[employer] [place] [address]OWRLYWDMEERA RAYMOND MD,PHD 07/26/2025 7:48 AM EST 07/26/2025 7:48 AM EST us Generic External Data Provider LAB BLOOD ORDERAB LES Final Result [facility] [address] [place] [phone] * Hemoglobin A1c (07/26/2025 7:48 AM EST) Hemoglobin A1c 5.5 <6.0 % [facility] Comment:Hemoglobin A1C Refer ence Range Adults: 4.8 - 6.0 % Non diabetic: < 6.0 % Goal: < 7.0 %Additional Action Suggested: > 8.0 %Note: Hemoglobin A1c results are invalid for patients with abnormal amounts of HbF. Blood transfusions may impact the HbA1c concentration in the patient sample. Estimated Average Glucose 111 mg/dL [facility] Comment:eAG = Estimated ave rage glucose which is %A1C expressed asaverage glucose, using the formula of the J2U-RegerjlHttozer Glucose study (ADAG), Diabetes Care, Vol.31,#8,Apr. 2007 07/26/2025 7:48 AM EST 07/26/2025 7:48 AM EST us Generic External Data Provider LAB BLOOD ORDERAB LES Final Result Performing Organization Address City/[facility]/ZIP Co de Phone Number [facility] [address] [place] [phone] * (ABNORMAL) Ferritin (07/26/2025 7:48 AM EST) Ferritin 7(L) 10 - 122 ng/mL [facility] 07/26/2025 7:48 AM EST 07/26/2025 7:48 AM EST us Generic External Data Provider LAB BLOOD ORDERAB LES Final Result Performing Organization Address City/[facility] Co de Phone Number [facility] [address] [place] [phone] * (ABNORMAL) Lipid Panel, Standard (07/26/2025 7:48 AM EST) Triglycerides 100 <150 mg/dL [facility] Comment:Desirable Triglyceri de: less than 150 mg/dLBorderline High Triglyceride 150-199 mg/dLHigh Triglyceride: 200-499 mg/dLVery High Triglyceride: greater than or equal to 5OO mg/dL Cholesterol 204(H) <200 mg/dL [facility] Comment:Desirable Cholestero l: less than 200 mg/dLBorderline High Cholesterol: 200-239 mg/dLHigh Cholesterol: greater than 239 mg/dL LDL Cholesterol Calculated 134(H) <100 mg/dL [facility] Comment:Desirable LDL: less than 100 mg/dLNear Optimal/Above Optimal LDL: 110- 129 mg/dLBorderline High LDL: 130-159 mg/dLHigh LDL: 160-189 mg/dLVery High LDL: greater than or equal to 190 mg/dL HDL Cholesterol 50 >40 mg/dL [facility] Comment:Desirable HDL: great er than 40 mg/dL Note: This HDL assay may give artificially low results in patients with liver disease. 07/26/2025 7:48 AM EST 07/26/2025 7:48 AM EST us Generic External Data Provider LAB BLOOD ORDERAB LES Final Result Performing Organization Address City/[facility]/ZIP Co de Phone Number [facility] [address] [place] [phone] * (ABNORMAL) Comprehensive Metabolic Panel (07/26/2025 7:48 AM EST) Sodium 139 135 - 145 mmol/L [facility] Potassium 3.5 3.3 - 5.1 mmol/L [facility] Chloride 105 96 - 108 mmol/L [facility] Carbon Dioxide 28 22 - 29 mmol/L [facility] Anion Gap 10(L) 12 - 20 [facility] Urea Nitrogen (BUN) 21(H) 9 - 16 mg/dL [facility] Creatinine, Serum 0.58 0.5 - 1.4 mg/dL [facility] Estimated Glomerular Filt Rate >60 [facility] Comment:Chronic Kidney Disea se: Estimated GFR < 60 mL/min/1.23m7Icndmp Kidney Disease: Estimated GFR < 15 mL/min/1.73m2 Glucose 90 60 - 115 mg/dL [facility] Calcium 8.6 8.4 - 10.2 mg/dL [facility] Bilirubin, Total 0.3 0.0 - 1.0 mg/dL [facility] Aspartate Amino Transferase 16 5 - 31 U/L [facility] Alanine Aminotransferase 9 0 - 31 U/L [facility] Total Protein 7.4 6.5 - 8.0 g/dL [facility] Albumin Level 4.1 3.5 - 5.0 g/dL [facility] Alkaline Phosphatase 62 39 - 117 U/L [facility] 07/26/2025 7:48 AM EST 07/26/2025 7:48 AM EST us Generic External Data Provider LAB BLOOD ORDERAB LES Final Result Performing Organization Address [facility]/ZIP Co de Phone Number [facility] [address] [place] [phone] * Creatinine, Serum (06/17/2025 8:05 AM EDT) Creatinine, Serum 0.57 0.5 - 1.4 mg/dL [facility] Estimated Glomerular Filt Rate >60 [facility] Comment:Chronic Kidney Disea se: Estimated GFR < 60 mL/min/1.47m6Uowozb Kidney Disease: Estimated GFR < 15 mL/min/1.73m2 06/17/2025 8:05 AM EDT 06/17/2025 8:05 AM EDT us Generic External Data Provider LAB BLOOD ORDERAB LES Final Result Performing Organization Address [facility] Co de Phone Number [facility] [address] [place] [address] [phone] * (ABNORMAL) BUN (Blood Urea Nitrogen) (06/17/2025 8:05 AM EDT) Urea Nitrogen (BUN) 17(H) 9 - 16 mg/dL [facility] 06/17/2025 8:05 AM EDT 06/17/2025 8:05 AM EDT us Generic External Data Provider LAB BLOOD ORDERAB LES Final Result Performing Organization Address [facility] Co de Phone Number [facility] [address] [place] [address] [phone] * PTH, Intact Without Calcium (06/17/2025 8:05 AM EDT) Parathyroid Hormone, Intact 56.3 8.7 - 77.1 pg/mL [facility] 06/17/2025 8:05 AM EDT 06/17/2025 8:05 AM EDT us Generic External Data Provider LAB BLOOD ORDERAB LES Final Result Performing Organization Address [facility] Co de Phone Number [facility] [address] [place] [phone] * Electrolyte Panel (06/17/2025 8:05 AM EDT) Sodium 140 135 - 145 mmol/L [facility] Potassium 3.5 3.3 - 5.1 mmol/L [facility] Chloride 107 96 - 108 mmol/L [facility] Carbon Dioxide 25 22 - 29 mmol/L [facility] Anion Gap 12 12 - 20 [facility] 06/17/2025 8:05 AM EDT 06/17/2025 8:05 AM EDT us Generic External Data Provider LAB BLOOD ORDERAB LES Final Result [facility] [address] [place] [phone] * Hm Pap Smear (02/21/2023) Historical Provider HEALTH MAINTENANCE Final Result * HPV E6/E7 RFLX CLAIRE 16 18/45 (12/08/2021 10:43 AM EDT) HPV mRNA E6/E7 rflx Not Detected Not Detected [facility] Comment: Methodology: Warehouse Distribution Manager-Mediated Amplification This assay detects E6/E7 viral messenger RNA (mRNA) from 14 high-risk HPV types (16,18,31,33,35,39,45,51,52,56,58,59,66,68). The analytical performance characteristics of this assay have been determined by [employer]. The modifications have not been cleared or approved by the FDA. This assay has been validated pursuant to the CLIA regulations and is used for clinical purposes. For additional information, please refer to http://education.Collegebound Bus.nediyor.com/faq/OUR045a0 (This link if provided for information/ educational purposes only.) THIS TEST WAS PERFORMED AT: [facility] [address] [place] [address],[place] [address] KALUS BRASHER MD 12/08/2021 10:4 3 AM EDT us Lainecharly Zamora HISTORICAL/NON ORDERABLE LABS Fi nal Result Performing Organization Address [facility] de Phone Number [facility] [address] * HEPATITIS C ANTIBODY (11/16/2019 10:03 AM EDT) HEPATITIS C ANTIBODY [facility] Comment: Antibodies to HCV not detected; does not exclude early acute HCV infection. 11/16/2019 10:0 3 AM EDT Lainecharly Zamora HISTORICAL/NON ORDERABLE LABS Fi nal Result Performing Organization Address [facility] Phone [facility] [address] * HIV AB/AG (11/16/2019 10:03 AM [...] of detection of this assay. The [employer] Electrician Supervisor HIV Ag/Ab Combo assay result and supplemental assay results should be interpreted in conjunction with the patient's clinical presentation, history and other laboratory results. If the results are inconsistent with clinical evidence, additional testing is suggested to confirm the result. 11/16/2019 10:0 3 AM EDT us Laine Zamora HISTORICAL/NON ORDERABLE LABS Fi nal Result Performing Organization Address [facility] Phone Number [facility] [address] from Last 3 Months or Most Recently Relevant to Health Maintenance Insurance [facility] C3 DENTAL-[facility] MEDICAID STAND ADULT * Guarantor: AguilarSarah berger I Account Type Relation to Patient Date of Phone Billing Address Personal/Family Self [address] [place] [address] * Guarantor: Sarah Sheikh I Account Type Relation to Patient Date of Phone Billing Address Personal/Family Self [address] [place] [address] * Guarantor: Sarah Sheikh I Account Type Relation to Patient Date of Phone Billing Address Personal/Family Self [address] [place] [address] Care Teams Compliance Professional Relationship Specialty Start Date End Date Sarah Bradley MD [address] [place] [address] PCP - General Family Medicine 06/22/18 Aisha Savage Petroleum GeologistSmoke Inspector 04/11/24
--- OUTSIDE RECORDS SUMMARY | 2025-08-20 15:44 | XMS_ITS | Encounter Summary ---
Author Organization [employer] Address [address] [facility] [address] 7t [place] [address] Care Team Providers Care Peer Counselor Name Role Phone Sarah Bradley MD Primary Care Provide r Reason for Visit * Reason Onset Date Comments Chart Prep 08/19/2025 Encounter Details Date Type Department Care Team ([facility] st Contact Info) Description 08/19/2025 Telephone [facility] [address] [place] [address] Sarah Bradley MD [address] [place] [address] Chart Prep Social History Tobacco Use Types Packs/Day Years [...] encounter Miscellaneous Notes * Telephone Encounter - Mariela Andujar [place] - 08/19/2025 11:19 AM EST Chart Prep Labs: done Images: not applicable Referrals: not applicable Vaccines due: Covid, Flu, PCV20, Hep B, Hep A, and HPV Screenings: LMP and PISQ Overdue care gaps: Glucose, SBIRT, PHQ-9, and MICHELLE-7 documented in this encounter Plan of Treatment Upcoming Encounters Date Type Department Care Team ([facility] st Contact Info) Description 09/11/2025 1:00 PM EST Office Visit [facility] [address] [place] [phone] Sarah Bradley MD [address] [place], [place] [phone] 02/13/2026 9:00 AM EDT Office Visit [facility] OPTOMETRY [address] [place], [place] [phone] Nehemias, Katy, OD [address] [place], [place] [phone] documented as of this encounter Visit Diagnoses Not on filedocumented in this encounter Additional Health Concerns Assessment Noted Time PHQ-9 Depression Total Score: 2 02/13/20 25 2:23 PM EDT documented as of this encounter Care Teams Peer Counselor Relationship Specialty Start Date End Date Sarah Bradley MD [address] [place], [place] [phone] PCP - General Family Medicine 06/22/18 Aisha Savage Pilot TeacherProgress Clerk 04/11/24 documented as of this encounter
--- OUTSIDE RECORDS SUMMARY | 2025-08-20 15:44 | XMS_ITS | Encounter Summary ---
Author Organization [employer] Address [address] [facility] 7t [place] [address] Care Team Providers Care Gas Line Servicer Name Role Phone Sarah Bradley MD Primary Care Provide r Bruce Cruz RN Unavailable [phone] Veronica Preston Unavailable Reason for Visit * Reason Onset Date Comments PT1 03/22/2024 Encounter Details Date Type Department Care Team ([facility] st Contact Info) Description 03/22/2024 Telephone [facility]INE [address] [place] [address] Sarah Bradley MD [address] [place] [address] PT1 Social History Tobacco Use Types Packs/Day [...] Y/N: Yes Provider name or facility name: [facility] Facility Address: [address] [facility] [address] Escort needed: Y/N: No Do you have a wheelchair: Y/N: No If yes- Manual or electric: n/a Visits; all future visits documented in this encounter Plan of Treatment Upcoming Encounters Date Type Department Care Team (Late st Contact Info) Description 09/11/2025 1:00 PM EST Office Visit [facility] [address] [place] [address] Sarah Bradley MD [address] [place] [address] 02/13/2026 9:00 AM EDT Office Visit [facility] OPTOMETRY [address] [place] [address] Katy Del Cid, OD [address] [place] [address] documented as of this encounter Visit Diagnoses Not on filedocumented in this encounter Additional Health Concerns Assessment Noted Time PHQ-9 Depression Total Score: 0 02/19/20 1:15 PM EDT documented as of this encounter Care Teams Gas Line Servicer Relationship Specialty Start Date End Date Sarah Bradley MD [address] [place] [address] PCP - General Family Medicine 06/22/18 Bruce Cruz, MIQUEL [address] [place] [address] Registered Nurse Family Medicine 01/15/25 05/22/25 Veronica Preston 01/15/25 06/03/25 Aisha Savage K 9 Handler/ DeputyBank Note Designer 04/11/24 documented as of this encounter
--- OUTSIDE RECORDS SUMMARY | 2025-08-20 15:44 | XMS_ITS | Encounter Summary ---
Author Organization [employer] Address [address] [facility] [address] 7t [place] [address] Care Team Providers Care Commercial Sales Representative Name Role Phone Sarah Bradley MD Primary Care Provide r Encounter Details Date Type Department Care Team ([facility] Contact Info) Description 08/20/2025 Orders Only GENERIC EXTERNAL DATA DEPARTMENT [...] the past 12 months, has t he [employer], [employer], oil or water [employer] threatened to shut off services in your [...] 1:00 PM EST Office [facility] [address] [place] [address] Sarah Bradley MD [address] [place] [address] 02/13/2026 9:00 AM EDT Office Visit [facility]OMET[facility] [address] [place] [address] Katy Del Cid, OD 230 [place] [address] documented as of this encounter Procedures Procedure Name Priority Date/Time Associated Diagnosis Comments MAGNESIUM Routine 08/20/2025 12:01 PM EST BASIC METABOLIC PANEL Routine 08/20/2025 12:01 PM EST documented in this encounter Results * Magnesium (08/20/2025 12:01 PM EST) Magnesium 1.9 1.6 - 2.6 mg/dL [facility] 08/20/2025 12:0 1 PM EST 08/20/2025 2:19 PM EST us Generic External Data Provider LAB BLOOD ORDERAB LES Final Result [facility] [address] [place] [phone] [phone] * (ABNORMAL) Basic Metabolic Panel (08/20/2025 12:01 PM EST) Sodium 138 135 - 145 mmol/L [facility] Potassium 3.5 3.3 - 5.1 mmol/L [facility] Chloride 104 96 - 108 mmol/L [facility] Carbon Dioxide 27 22 - 29 mmol/L [facility] Anion Gap 11(L) 12 - 20 [facility] Urea Nitrogen (BUN) 18(H) 9 - 16 mg/dL [facility] Creatinine, Serum 0.59 0.5 - 1.4 mg/dL [facility] Estimated Glomerular Filt Rate >60 [facility] Comment:Chronic Kidney Disea se: Estimated GFR < 60 mL/min/1.24e4Wpfhtz Kidney Disease: Estimated GFR < 15 mL/min/1.73m2 Glucose 90 60 - 115 mg/dL [facility] Calcium 8.9 8.4 - 10.2 mg/dL [facility] 08/20/2025 12:0 1 PM EST 08/20/2025 2:19 PM EST us Generic External Data Provider LAB BLOOD ORDERAB LES Final Result Performing Organization Address City/State/[facility] Co de Phone Number [facility] [address] [place] [phone] documented in this encounter Visit Diagnoses Not on filedocumented in this encounter Additional Health Concerns Assessment Noted Time PHQ-9 Depression Total Score: 7 08/20/20 25 10:58 AM EST documented as of this encounter Care Teams Commercial Sales Representative Relationship Specialty Start Date End Date Sarah Bradley MD [address] [place] [address] PCP - General Family Medicine 06/22/18 Aisha Savage Manager Of ComplianceCleaning Attendant 04/11/24 documented as of this encounter
--- OUTSIDE RECORDS SUMMARY | 2025-08-20 15:45 | XMS_ITS | Encounter Summary ---
Author Organization [employer] Address [address] [facility] [address]t h Floor [place] [phone] Care Team Providers Care Bilingual Receptionist Name Role Phone Sarah Bradley MD Primary Care Provide r Bruce Cruz RN Unavailable [phone] Veronica Preston Unavailable Encounter Details Date Type Department Care Team (Late Contact Info) Description 06/07/2023 Abstract [facility] [address] [place] [address] [phone] Sarah Bradley MD [address] [place] [address] [phone] Social History Tobacco Use Types Packs/Day Years [...] Description 09/11/2025 1:00 PM EST Office Visit [facility] [address] [place] [address] [phone] Sarah Bradley MD [address] [place] [address] 02/13/2026 9:00 AM EDT Office Visit [facility] OPTOMETRY [address] [place] [address] Katy Del Cid, OD [address] [place] [address] documented as of this encounter Procedures Procedure [...] as of this encounter Care Teams Bilingual Receptionist Relationship Specialty Start Date End Date Sarah Bradley MD [address] [place] [address] PCP - General Family Medicine 06/22/18 Bruce Cruz, RN [address] [place] [address] Registered Nurse Family Medicine 01/15/25 05/22/25 Veronica Preston 01/15/25 06/03/25 Aisha Savage Director Of Sports MedicineHadoop Application Developer 04/11/24 documented as of this encounter
--- OUTSIDE RECORDS SUMMARY | 2025-08-20 15:45 | XMS_ITS | Encounter Summary ---
Author Organization [employer] Address [address] [facility] 7t [place] [address] Care Team Providers Care Animal Health Technician Name Role Phone Sarah Bradley MD Primary Care Provide r Bruce Cruz RN Unavailable [phone] Veronica Preston Unavailable Encounter Details Date Type Department Care Team (Late Contact Info) Description 03/22/2023 Abstract [facility] [address] [place] [address] Sarah Bradley MD [address] [place] [address] Social History Tobacco Use Types Packs/Day Years [...] Description 09/11/2025 1:00 PM EST Office Visit [facility] [address] [place] [address] Sarah Bradley MD [address] [place] [address] 02/13/2026 9:00 AM EDT Office Visit [facility] OPTOMETRY [address] [place], [place] [phone] Katy Del Cid, OD 230 [place] [address] documented as of this encounter Visit Diagnoses Not on filedocumented in this encounter Additional Health Concerns Assessment Noted Time PHQ-9 Depression Total Score: 0 01/18/20 23 10:22 AM EDT documented as of this encounter Care Teams Animal Health Technician Relationship Specialty Start Date End Date Sarah Bradley MD [address] [place], [place] [phone] PCP - General Family Medicine 06/22/18 Bruce Cruz, MIQUEL [address] [place] [address] Registered Nurse Family Medicine 01/15/25 05/22/25 Veronica Preston 01/15/25 06/03/25 Aisha Savage Vp DesignUmbrella Cutter 04/11/24 documented as of this encounter
--- OUTSIDE RECORDS SUMMARY | 2025-08-20 15:45 | XMS_ITS | Encounter Summary ---
Author Organization [employer] Address [address] [facility] 7t [place] [address] Care Team Providers Care Frame Sample And Pattern Supervisor Name Role Phone Sarah Bradley MD Primary Care Provide r Bruce Cruz RN Unavailable [phone] Veronica Preston Unavailable Encounter Details Date Type Department Care Team ([facility] Contact Info) Description 03/22/2023 Orders Only [facility] [address] [place] [address] [phone] Provider, MD Yessi Social History Tobacco Use [...] Upcoming Encounters Date Type Department Care Team ([facility] Contact Info) Description 09/11/2025 1:00 PM EST Office Visit [facility] [address] [place] [address] [phone] Sarah Bradley MD [address] [place] [address] 02/13/2026 9:00 AM EDT Office Visit [facility] OPTOMETRY [address] [place] [address] Nehemias, Katy, OD [address] [place] [address] documented as of this encounter Procedures Procedure [...] documented as of this encounter Care Teams Frame Sample And Pattern Supervisor Relationship Specialty Start Date End Date Sarah Bradley MD [address] [place] [address] PCP - General Family Medicine 06/22/18 Bruce Cruz, RN [address] [place] [address] Registered Nurse Family Medicine 01/15/25 05/22/25 Veronica Preston 01/15/25 06/03/25 Aisha Savage Vet AssistantAutomobile Club Travel Counselor 04/11/24 documented as of this encounter
--- OUTSIDE RECORDS SUMMARY | 2025-08-20 15:45 | XMS_ITS | Clinical Summary ---
Author Organization [employer] [facility] ity Address [address] [place] [address] Care Team Providers Care Air Pollution Control Engineer Name Role Phone Unavailable Primary Care [...] on file Sexual Orientation Not on file Plan of Treatment Health Maintenance Due Date [...]
== END 2025-08-20 11:51 | disposition home or self-care (01) ==
LOC: HO.HHCL 11:50
PROVIDERS: PCP Internal Medicine; Visit Provider Internal Medicine
DX: I10 Essential (primary) hypertension (principal); E06.3 Autoimmune thyroiditis; E87.6 Hypokalemia
CPT/HCPCS: 36415; 80048; 83735; 84443

== ENCOUNTER 2025-08-26 09:13 | Outpatient (REF) | payer MEDICAID, SELFPAY ==
--- OUTSIDE RECORDS SUMMARY | 2025-08-26 09:53 | XMS_ITS | Encounter Summary ---
Author Organization [employer] Address [address] [address] 7t [place] [address] Care Team Providers Care Corporate Attorney Name Role Phone Sarah Bradley MD Primary Care Provide r Bruce Cruz RN Unavailable [phone] Veronica Preston Unavailable Encounter Details Date Type Department Care Team ([facility] Contact Info) Description 07/26/2024 Telephone [facility] [address] [place] [address] Sarah Bradley MD [address] [place] [address] Social History Tobacco Use Types Packs/Day Years [...] Description 09/11/2025 1:00 PM EST Office Visit [facility] [address] [place] [address] Sarah Bradley MD [address] [place] [address] 02/13/2026 9:00 AM EDT Office Visit [facility] OPTOMETRY [address] [place] [address] Nehemias, Katy, OD [address] [place] [address] documented as of this encounter Visit Diagnoses Not on filedocumented in this encounter Additional Health Concerns Assessment Noted Time PHQ-9 Depression Total Score: 0 02/19/20 24 1:15 PM EDT documented as of this encounter Care Teams Corporate Attorney Relationship Specialty Start Date End Date Sarah Bradley MD [address] [place] [address] PCP - General Family Medicine 06/22/18 Bruce Cruz, MIQUEL [address] [place] [address] Registered Nurse Family Medicine 01/15/25 05/22/25 Veronica Preston 01/15/25 06/03/25 Aisha Savage Office Manager ReceptionistPalliative Care Coordinator 04/11/24 documented as of this encounter
--- OUTSIDE RECORDS SUMMARY | 2025-08-26 09:53 | XMS_ITS | Encounter Summary ---
Author Organization [employer] Address [address] [facility] 7t [place] [address] Care Team Providers Care Cardiology Teacher Name Role Phone Sarah Bradley MD Primary Care Provide r Bruce Cruz RN Unavailable [phone] Veronica Preston Unavailable Encounter Details Date Type Department Care Team (Late Contact Info) Description 03/22/2023 Abstract [facility] [address] [place] [address] Sarah Bradley MD [address] [place] [address] Social History Tobacco Use Types Packs/Day Years [...] Description 09/11/2025 1:00 PM EST Office Visit [facility] [address] [place] [address] Sarah Bradley MD [address] [place] [address] 02/13/2026 9:00 AM EDT Office Visit [facility] OPTOMETRY [address] [place], [place] [phone] Katy Del Cid, OD [address] [place] [address] documented as of this encounter Visit Diagnoses Not on filedocumented in this encounter Additional Health Concerns Assessment Noted Time PHQ-9 Depression Total Score: 0 01/18/20 23 10:22 AM EDT documented as of this encounter Care Teams Cardiology Teacher Relationship Specialty Start Date End Date Sarah Bradley MD [address] [place], [place] [phone] PCP - General Family Medicine 06/22/18 Bruce Cruz, MIQUEL [address] [place] [address] Registered Nurse Family Medicine 01/15/25 05/22/25 Veronica Preston 01/15/25 06/03/25 Aisha Savage [facility] TutorMerchandise Support Associate 04/11/24 documented as of this encounter
--- OUTSIDE RECORDS SUMMARY | 2025-08-26 09:53 | XMS_ITS | Encounter Summary ---
Author Organization [employer] Address [address] [facility] 7t [place] [address] Care Team Providers Care Aeronautical Drafter Name Role Phone Sarah Bradley MD Primary Care Provide r Bruce Cruz RN Unavailable [phone] Veronica Preston Unavailable Encounter Details Date Type Department Care Team (Latest Contact Info) Description 12/15/2020 Abstract [facility] CONVERSIONS Dental, Provider, DDS Social History [...] Description 09/11/2025 1:00 PM EST Office Visit [facility] MED[facility]INE [address] [place] [address] Sarah Bradley MD [address] [place] [address] 02/13/2026 9:00 AM EDT Office Visit [facility] OPTOMETRY [address] [place] [address] Katy Del Cid, OD [address] [place] [address] documented as of this encounter Visit Diagnoses Not on filedocumented in this encounter Care Teams Aeronautical Drafter Relationship Specialty Start Date End Date Sarah Bradley MD [address] [place] [address] PCP - General Family Medicine 06/22/18 Bruce Cruz, MIQUEL [address] [place] [address] Registered Nurse Family Medicine 01/15/25 05/22/25 Veronica Preston 01/15/25 06/03/25 Aisha Savage Lithography Contact WorkerPilot Submersible 04/11/24 documented as of this encounter
--- OUTSIDE RECORDS SUMMARY | 2025-08-26 09:53 | XMS_ITS | Encounter Summary ---
Author Organization [employer] Address 75 [facility] [address]t h Floor [place] [phone] Care Team Providers Care Web Interface Developer Name Role Phone Sarah Bradley MD Primary Care Provide r Bruce Cruz RN Unavailable [phone] Veronica Preston Unavailable Encounter Details Date Type Department Care Team (Late Contact Info) Description 06/07/2023 Abstract [facility] MEDICINE [address] [place] [address] [phone] Sarah Bradley MD [address] [place] [address] [phone] Social History Tobacco Use Types Packs/Day Years [...] 09/11/2025 1:00 PM EST Office Visit [facility] [address] [place] [address] [phone] Sarah Bradley MD [address] [place] [address] 02/13/2026 9:00 AM EDT Office Visit [facility] OPTOMETRY [address] [place] [address] Katy Del Cid, OD [address] [place] [address] documented as of this encounter Procedures Procedure [...] documented as of this encounter Care Teams Web Interface Developer Relationship Specialty Start Date End Date Sarah Bradley MD [address] [place] [address] PCP - General Family Medicine 06/22/18 Bruce Cruz, RN [address] [place] [address] Registered Nurse Family Medicine 01/15/25 05/22/25 Veronica Preston 01/15/25 06/03/25 Aisha Savage Apartment GroundskeeperOxygen Plant Operator 04/11/24 documented as of this encounter
--- OUTSIDE RECORDS SUMMARY | 2025-08-26 09:53 | XMS_ITS | Encounter Summary ---
Author Organization [employer] Address [address] [facility] 7t [place] [address] Care Team Providers Care Tax Attorney Name Role Phone Sarah Bradley MD Primary Care Provide r Bruce Cruz RN Unavailable [phone] Veronica Preston Unavailable Reason for Visit * Reason Onset Date Comments PT1 03/22/2024 Encounter Details Date Type Department Care Team ([facility] st Contact Info) Description 03/22/2024 Telephone [facility] [address] [place] [address] Sarah Bradley MD [address] [place] [address] PT1 Social History Tobacco Use Types Packs/Day [...] Y/N: Yes Provider name or facility name: [facility] Facility Address: [address] [facility] [address] Escort needed: Y/N: No Do you have a wheelchair: Y/N: No If yes- Manual or electric: n/a Visits; all future visits documented in this encounter Plan of Treatment Upcoming Encounters Date Type Department Care Team (Late st Contact Info) Description 09/11/2025 1:00 PM EST Office Visit [facility] [address] [place] [address] Sarah Bradley MD [address] [place] [address] 02/13/2026 9:00 AM EDT Office Visit [facility] OPTOMETRY [address] [place] [address] Katy Del Cid, OD [address] [place] [address] documented as of this encounter Visit Diagnoses Not on filedocumented in this encounter Additional Health Concerns Assessment Noted Time PHQ-9 Depression Total Score: 0 02/19/20 1:15 PM EDT documented as of this encounter Care Teams Tax Attorney Relationship Specialty Start Date End Date Sarah Bradley MD [address] [place] [address] PCP - General Family Medicine 06/22/18 Bruce Cruz, MIQUEL [address] [place] [address] Registered Nurse Family Medicine 01/15/25 05/22/25 Veronica Preston 01/15/25 06/03/25 Aisha Savage Stage TechnicianCataract Lens Generator 04/11/24 documented as of this encounter
--- OUTSIDE RECORDS SUMMARY | 2025-08-26 09:53 | XMS_ITS | Encounter Summary ---
Author Organization [employer] Address [address] [facility] 7t [place] [address] Care Team Providers Care Cellar Hand Name Role Phone Sarah Bradley MD Primary Care Provide r Bruce Cruz RN Unavailable [phone] Veronica Preston Unavailable Encounter Details Date Type Department Care Team (Late st Contact Info) Description 01/27/2023 Abstract [facility] [address] [place] [phone] Sarah Bradley MD [address] [place] [phone] Social History Tobacco Use Types Packs/Day Years [...] Description 09/11/2025 1:00 PM EST Office Visit [facility] [address] [place] [phone] Sarah Bradley MD [address] [place] [address] 02/13/2026 9:00 AM EDT Office Visit [facility] OPTOMETRY [address] [place] [address] Nehemias, Katy, OD [address] [place] [address] documented as of this encounter Procedures Procedure [...] documented as of this encounter Care Teams Cellar Hand Relationship Specialty Start Date End Date Sarah Bradley MD [address], [place] [phone] PCP - General Family Medicine 06/22/18 Bruce Cruz, RN [address] [place] [phone] Registered Nurse Family Medicine 01/15/25 05/22/25 Veronica Preston 01/15/25 06/03/25 Aisha Savage Frame HandAirplane Pilot 04/11/24 documented as of this encounter
--- OUTSIDE RECORDS SUMMARY | 2025-08-26 09:53 | XMS_ITS | Clinical Summary ---
Author Organization [employer] [facility] ity Address [address] [place] [address] Care Team Providers Care Fishing Captain Name Role Phone Unavailable Primary Care Provider [...]
--- OUTSIDE RECORDS SUMMARY | 2025-08-26 09:53 | XMS_ITS | Clinical Summary ---
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); Pre-diabetes; Overweight (BMI 25.0-29.9); Mild intermittent asthma, unspecified whether complicated; 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; Uncomplicated asthma, unspecified asthma severity, unspecified whether persistent; Hypokalemia; Encounter for immunization; Encounter for preventive care 08/20/2025 Orders Only GENERIC EXTERNAL DATA DEPARTMENT Provider, Generic External Data 08/20/2025 Travel 08/19/2025 Telephone [facility] [address] [place] [phone] Sarah Bradley MD Chart Prep 08/13/2025 Patient Outreach [address] [phone] Sarah Bradley MD Pre-visit Planning ([facility] screening is completed ) 07/26/2025 Orders Only GENERIC EXTERNAL DATA DEPARTMENT Provider, Generic External Data 06/17/2025 Orders Only GENERIC EXTERNAL DATA DEPARTMENT Provider, Generic External Data 06/03/2025 Patient Outreach [facility] [address] [place] [address] Sarah Bradley MD Care Coordination (C3/CM F/U) from Last 3 Months Immunizations Immunization Administration [...] Description 09/11/2025 1:00 PM EST Office Visit [facility] [address] [place] [address] Sarah Bradley MD [address] [place] [address] 02/13/2026 9:00 AM EDT Office Visit [facility] OPTOMETRY [address] [place] [address] Nehemias, Katy, OD [address] [place] [address] Health Maintenance Due Date Last Done Comments [...] 02/09/2023, 11/27/2020, Additional history exists COVID-19 Vaccine (2024- season) 2025 08/24/2021 SDOH Screening 12/20/2025 12/20/2024 Cervical Cancer Screening 02/21/2026 HPV/Cotest 02/21/2026 12/08/2021, 02/2022, 12/03/2020, Additional history exists Pap Smear [...] Hypothyroidism due to Rebecca thyroiditis POCT GLUCOSE ([id number]) Routine 08/20/2025 10:57 AM EST Pre-diabetes VITAMIN [...] Free T4 1.87 0.32 - 4.0 uIU/mL [facility] Blood Venous blood specimen / Unknown 08/20/2025 12:01 PM EST 08/20/2025 2:19 PM EST us Sarah Galdamez MD LAB BLOOD ORDERABLES Final Result [facility] [address] [place] [phone] * Magnesium (08/20/2025 12:01 PM EST) Only the most recent of2 resultswithin the time period is included. Magnesium 1.9 1.6 - 2.6 mg/dL [facility] 08/20/2025 12:0 1 PM EST 08/20/2025 2:19 PM EST Generic External Data Provider LAB BLOOD ORDERAB LES Final Result Performing Organization Address [facility] de Phone Number [facility] [address] [place] [phone] * (ABNORMAL) Basic Metabolic Panel (08/20/2025 12:01 PM EST) [facility] Sodium 138 135 - 145 mmol/L [facility] Potassium 3.5 3.3 - 5.1 mmol/L [facility] Chloride 104 96 - 108 mmol/L [facility] Carbon Dioxide 27 22 - 29 mmol/L [facility] Anion Gap 11(L) 12 - 20 [facility] Urea Nitrogen (BUN) 18(H) 9 - 16 mg/dL [facility] Creatinine, Serum 0.59 0.5 - 1.4 mg/dL [facility] Estimated Glomerular Filt Rate >60 [facility] Comment:Chronic Kidney Disea se: Estimated GFR < 60 mL/min/1.47z4Rgimvd Kidney Disease: Estimated GFR < 15 mL/min/1.73m2 Glucose 90 60 - 115 mg/dL [facility] Calcium 8.9 8.4 - 10.2 mg/dL [facility] 08/20/2025 12:0 1 PM EST 08/20/2025 2:19 PM EST Generic External Data Provider LAB BLOOD ORDERAB LES Final Result Performing Organization Address [facility] Co de Phone Number [facility] [address] [place] [phone] * POCT Glucose (08/20/2025 10:57 AM EST) Pathologist [facility] Glucose Blood, POC 100 60 - 200 mg/dL [employer] Lot # [id number] Lot# Expiration Date [id number] Blood Capillary blood specimen / Unknown 08/20/2025 10:57 AM EST us Sarah Galdamez MD POINT OF CARE TEST EN TER/EDIT ORDERABLES Final Result * Vitamin D, 25-Hydroxy, Total, Immunoassay (07/26/2025 7:48 AM EST) Vitamin D 25-OH Total 30.4 >30 ng/mL [facility] Comment: Health Based Reference Values*< 20 ng/mL [id number] ng/mL Insufficient> 30 ng/mL Sufficient*Red ODONNELL. N [...] Provider LAB BLOOD ORDERAB LES Final Result [facility] [address] [place] [phone] * Vitamin B12 (Cobalamin) and Folate Panel, Serum (07/26/2025 7:48 AM EST) Vitamin B12 331 200 - 900 pg/mL [facility] Comment:NORMAL 200-900 PG/ML INDETERMINATE 160-199 PG/ML DEFICIENT < 160 PG/ML Folate 9.6 > or = 4.0 ng/mL [facility] Comment:Reference Values:> o r = 4.0 ng/mL< 4.0 ng/mL suggests folate deficiency Methotrexate, aminopterin and folinic acid(leucovorin) are chemotherapeutic agents whose molecularstructures are similar to folate; therefore, the Architectfolate assay cannot be used for patients using these drugs. 07/26/2025 7:48 AM EST 07/26/2025 7:48 AM EST us Generic External Data Provider LAB BLOOD ORDERAB LES Final Result [facility] [address] [place], [place] [phone] * (ABNORMAL) CBC auto differential (07/26/2025 7:48 AM EST) White Blood Count 4.4(L) 4.8 - 10.8 X10*3/uL [facility] Red Blood Count 3.71(L) 4.20 - 5.50 X10*6/uL [facility] Hemoglobin 9.6(L) 12.0 - 16.0 g/dl [facility] Hematocrit 31.2(L) 37.0 - 47.0 % [facility] Mean Corpuscular Volume 84.1 80.0 - 98.0 fL [facility] Mean Corpuscular Hemoglobin 25.9(L) 27.0 - 33.0 pg [facility] Mean Corpuscular HGB Conc 30.8(L) 31.0 - 35.0 g/dl [facility] Red Cell Distribution Width 13.3 11.0 - 16.0 % [facility] Platelet Count 236 160 - 400 X10*3/uL [facility] Mean Platelet Volume 11.2 9.4 - 12.3 fL [facility] Neutrophils Percent Auto 47.6 45 - 73 % [facility] Imm Gran Pct Auto 0.5(H) 0.0 - 0.4 % [facility] Lymphocytes Percent Auto 39.8 20 - 40 % [facility] Monocytes Percent Auto 5.9 2 - 11 % [facility] Eosinophils Percent Auto 5.7(H) 0 - 4 % [facility] Basophils Percent Auto 0.5 0 - 2 % [facility] NRBC Pct Auto 0.0 0.0 - 0.2 /100WBC [facility] Neutrophils Absolute Auto 2.1 2.0 - 8.3 x10*3/uL [facility] Imm Gran Abs Auto 0.02 0.00 - 0.03 X10*3/uL [facility] Lymphocytes Absolute Auto 1.7 1.2 - 4.9 X10*3/uL [facility] Monocytes Absolute Auto 0.3 0.1 - 1.2 X10*3/uL [facility] Eosinophils Absolute Auto 0.3 0.0 - 0.4 X10*3/uL [facility] Basophils Absolute Auto 0.0 0.0 - 0.2 X10*3/uL [facility] NRBC Abs Auto 0.000 0.0 - 0.012 X10*3/uL [facility] 07/26/2025 7:48 AM EST 07/26/2025 7:48 AM EST us Generic External Data Provider LAB BLOOD ORDERAB LES Final Result Performing Organization Address City/[facility] Co de Phone Number [facility] [address] [place] [phone] * (ABNORMAL) Iron And Total Iron Binding Capacity (07/26/2025 7:48 AM EST) Iron 28(L) 30 - 160 mcg/dL [facility] Total Iron Binding Capacity 366 228 - 428 mcg/dL [facility] Percent Iron Saturation 8(L) 15 - 50 % [facility] Unsaturated Iron Binding 338 ug/dL [facility] 07/26/2025 7:48 AM EST 07/26/2025 7:48 AM EST us Generic External Data Provider LAB BLOOD ORDERAB LES Final Result Performing Organization Address City/State/[facility] Co de Phone Number [facility] [address] [place] [phone] * Insulin (07/26/2025 7:48 AM EST) Insulin 4 2 - 29 uU/mL [facility] Comment:This test was perfor med using [...] ORDERAB LES Final Result Performing Organization Address [facility] Phone Number [facility] [address] [place] [phone] * Zinc (07/26/2025 7:48 AM EST) Zinc 60 60 - 130 mcg/dL [facility] Comment:This test was develo ped and its analytical performancecharacteristics have been determined by [employer] [place], [place]. It hasnot been cleared or approved by the U.S. Food and DrugAdministration. This assay has been validated pursuantto the CLIA regulations and is used for clinicalpurposes.THIS TEST WAS PERFORMED AT:[id number] [place] [address]GKMLXLGMEERA RAYMOND MD,PHD 07/26/2025 7:48 AM EST 07/26/2025 7:48 AM EST Generic External Data Provider LAB BLOOD ORDERAB LES Final Result Performing Organization Address [facility] Co de Phone Number [facility] [address] [place] [phone] * (ABNORMAL) Vitamin A (07/26/2025 7:48 AM EST) Vitamin A (Retinol) 34(A) 38 - 98 mcg/dL [facility] Comment:Vitamin supplementat ion within 24 hours prior toblood draw may affect the accuracy of the results.This test was developed and its analytical performancecharacteristics have been determined by [facility] [place], [place]. It hasnot been cleared or approved by the U.S. Food and DrugAdministration. This assay has been validated pursuantto the CLIA regulations and is used for clinicalpurposes.THIS TEST WAS PERFORMED AT:[id number] [place] [address]QHJXPCMMEERA RAYMOND MD,PHD 07/26/2025 7:48 AM EST 07/26/2025 7:48 AM EST Generic External Data Provider LAB BLOOD ORDERAB LES Final Result Performing Organization Address City/[facility]/ZIP Co de Phone Number [facility] [address] [place] [phone] * C-reactive Protein (07/26/2025 7:48 AM EST) [facility] C Reactive Protein <0.10 < or = 0.50 mg/dL [facility] 07/26/2025 7:48 AM EST 07/26/2025 7:48 AM EST Generic External Data Provider LAB BLOOD ORDERAB LES Final Result Performing Organization Address [facility]/ZIP Co de Phone Number [facility] [address] [place] [phone] * Vitamin B1 (07/26/2025 7:48 AM EST) Pathologist [facility] Vitamin B1 9 8 - 30 nmol/L [facility] Comment:Vitamin supplementat ion within 24 hours prior toblood draw may affect the accuracy of the results.This test was developed and its analytical performancecharacteristics have been determined by [facility] [place], [place]. It hasnot been cleared or approved by the U.S. Food and DrugAdministration. This assay has been validated pursuantto the CLIA regulations and is used for clinicalpurposes.THIS TEST WAS PERFORMED AT:[id number] [place] [address]NNJJWAVMEERA RAYMOND MD,PHD 07/26/2025 7:48 AM EST 07/26/2025 7:48 AM EST Generic External Data Provider LAB BLOOD ORDERAB LES Final Result Performing Organization Address [facility] Co de Phone Number [facility] [address] [place] [phone] * Hemoglobin A1c (07/26/2025 7:48 AM EST) Hemoglobin A1c 5.5 <6.0 % [facility] Comment:Hemoglobin A1C Refer ence Range Adults: 4.8 - 6.0 % Non diabetic: < 6.0 % Goal: < 7.0 %Additional Action Suggested: > 8.0 %Note: Hemoglobin A1c results are invalid for patients with abnormal amounts of HbF. Blood transfusions may impact the HbA1c concentration in the patient sample. Estimated Average Glucose 111 mg/dL [facility] Comment:eAG = Estimated ave rage glucose which is %A1C expressed asaverage glucose, using the formula of the D1U-BjotyisFiugend Glucose study (ADAG), Diabetes Care, Vol.31,#8,Apr. 2007 07/26/2025 7:48 AM EST 07/26/2025 7:48 AM EST Generic External Data Provider LAB BLOOD ORDERAB LES Final Result Performing Organization Address [facility] Co de Phone Number [facility] [address] [place] [phone] * (ABNORMAL) Ferritin (07/26/2025 7:48 AM EST) Ferritin 7(L) 10 - 122 ng/mL [facility] 07/26/2025 7:48 AM EST 07/26/2025 7:48 AM EST Generic External Data Provider LAB BLOOD ORDERAB LES Final Result Performing Organization Address [facility]/ZIP Co de Phone Number [facility] [address] [place] [phone] * (ABNORMAL) Lipid Panel, Standard (07/26/2025 7:48 AM EST) Triglycerides 100 <150 mg/dL [facility] Comment:Desirable Triglyceri de: less than 150 mg/dLBorderline High Triglyceride 150-199 mg/dLHigh Triglyceride: 200-499 mg/dLVery High Triglyceride: greater than or equal to 5OO mg/dL Cholesterol 204(H) <200 mg/dL [facility] Comment:Desirable Cholestero l: less than 200 mg/dLBorderline High Cholesterol: 200-239 mg/dLHigh Cholesterol: greater than 239 mg/dL LDL Cholesterol Calculated 134(H) <100 mg/dL [facility] Comment:Desirable LDL: less than 100 mg/dLNear Optimal/Above Optimal LDL: 110- 129 mg/dLBorderline High LDL: 130-159 mg/dLHigh LDL: 160-189 mg/dLVery High LDL: greater than or equal to 190 mg/dL HDL Cholesterol 50 >40 mg/dL [facility] Comment:Desirable HDL: great er than 40 mg/dL Note: This HDL assay may give artificially low results in patients with liver disease. 07/26/2025 7:48 AM EST 07/26/2025 7:48 AM EST us Generic External Data Provider LAB BLOOD ORDERAB LES Final Result Performing Organization Address City/[facility]/ZIP Co de Phone Number [facility] [address] [place] [phone] * (ABNORMAL) Comprehensive Metabolic Panel (07/26/2025 7:48 AM EST) Sodium 139 135 - 145 mmol/L [facility] Potassium 3.5 3.3 - 5.1 mmol/L [facility] Chloride 105 96 - 108 mmol/L [facility] Carbon Dioxide 28 22 - 29 mmol/L [facility] Anion Gap 10(L) 12 - 20 [facility] Urea Nitrogen (BUN) 21(H) 9 - 16 mg/dL [facility] Creatinine, Serum 0.58 0.5 - 1.4 mg/dL [facility] Estimated Glomerular Filt Rate >60 [facility] Comment:Chronic Kidney Disea se: Estimated GFR < 60 mL/min/1.25p1Dumbpt Kidney Disease: Estimated GFR < 15 mL/min/1.73m2 Glucose 90 60 - 115 mg/dL [facility] Calcium 8.6 8.4 - 10.2 mg/dL [facility] Bilirubin, Total 0.3 0.0 - 1.0 mg/dL [facility] Aspartate Amino Transferase 16 5 - 31 U/L [facility] Alanine Aminotransferase 9 0 - 31 U/L [facility] Total Protein 7.4 6.5 - 8.0 g/dL [facility] Albumin Level 4.1 3.5 - 5.0 g/dL [facility] Alkaline Phosphatase 62 39 - 117 U/L [facility] 07/26/2025 7:48 AM EST 07/26/2025 7:48 AM EST us Generic External Data Provider LAB BLOOD ORDERAB LES Final Result [facility] [address] [place] [phone] * Creatinine, Serum (06/17/2025 8:05 AM EDT) Creatinine, Serum 0.57 0.5 - 1.4 mg/dL [facility] Estimated Glomerular Filt Rate >60 [facility] Comment:Chronic Kidney Disea se: Estimated GFR < 60 mL/min/1.85v9Hlokin Kidney Disease: Estimated GFR < 15 mL/min/1.73m2 06/17/2025 8:05 AM EDT 06/17/2025 8:05 AM EDT us Generic External Data Provider LAB BLOOD ORDERAB LES Final Result Performing Organization Address [facility] Co de Phone Number [facility] [address] [place] [phone] * (ABNORMAL) BUN (Blood Urea Nitrogen) (06/17/2025 8:05 AM EDT) Urea Nitrogen (BUN) 17(H) 9 - 16 mg/dL [facility] 06/17/2025 8:05 AM EDT 06/17/2025 8:05 AM EDT us Generic External Data Provider LAB BLOOD ORDERAB LES Final Result Performing Organization Address [facility] de Phone Number [facility] [address] [place] [address] [phone] * PTH, Intact Without Calcium (06/17/2025 8:05 AM EDT) Parathyroid Hormone, Intact 56.3 8.7 - 77.1 pg/mL [facility] 06/17/2025 8:05 AM EDT 06/17/2025 8:05 AM EDT us Generic External Data Provider LAB BLOOD ORDERAB LES Final Result Performing Organization Address [facility] de Phone Number [facility] [address] [place] [phone] * Electrolyte Panel (06/17/2025 8:05 AM EDT) Sodium 140 135 - 145 mmol/L [facility] Potassium 3.5 3.3 - 5.1 mmol/L [facility] Chloride 107 96 - 108 mmol/L [facility] Carbon Dioxide 25 22 - 29 mmol/L [facility] Anion Gap 12 12 - 20 [facility] 06/17/2025 8:05 AM EDT 06/17/2025 8:05 AM EDT us Generic External Data Provider LAB BLOOD ORDERAB LES Final Result Performing Organization Address City/[facility]/ZIP Co de Phone Number [facility] [address] [place] [phone] * Hm Pap Smear (02/21/2023) Historical Provider HEALTH MAINTENANCE Final Result * HPV E6/E7 RFLX CLAIRE 16 18/45 (12/08/2021 10:43 AM EDT) Pathologist [facility] HPV mRNA E6/E7 rflx Not Detected Not Detected [facility] Comment: Methodology: Capacity Planning Engineer-Mediated Amplification This assay detects E6/E7 viral messenger RNA (mRNA) from 14 high-risk HPV types (16,18,31,33,35,39,45,51,52,56,58,59,66,68). The analytical performance characteristics of this assay have been determined by [employer]. The modifications have not been cleared or approved by the FDA. This assay has been validated pursuant to the CLIA regulations and is used for clinical purposes. For additional information, please refer to http://education.Soma/faq/NOV877e7 (This link if provided for information/ educational purposes only.) THIS TEST WAS PERFORMED AT: [employer] [address] [place] [address] [address],[place] [address] KLAUS BRASHER MD 12/08/2021 10:4 3 AM EDT Laine Zamora HISTORICAL/NON ORDERABLE LABS Fi nal Result [facility] [address] * HEPATITIS C ANTIBODY (11/16/2019 10:03 AM EDT) HEPATITIS C ANTIBODY [facility] Comment: Antibodies to HCV not detected; does not exclude early acute HCV infection. 11/16/2019 10:0 3 AM EDT Laine Zamora HISTORICAL/NON ORDERABLE LABS Fi nal Result Performing Organization Address [facility] de Phone Number [facility] [address] * HIV AB/AG (11/16/2019 10:03 AM [...] of detection of this assay. The [employer] Jack Spooler Tender HIV Ag/Ab Combo assay result and supplemental assay results should be interpreted in conjunction with the patient's clinical presentation, history and other laboratory results. If the results are inconsistent with clinical evidence, additional testing is suggested to confirm the result. 11/16/2019 10:0 3 AM EDT Laine Zamora HISTORICAL/NON ORDERABLE LABS Fi nal Result Performing Organization Address [facility] de Phone Number [facility] [address] from Last 3 Months or Most Recently Relevant to Health Maintenance Insurance [facility] C[place] * Guarantor: AguilarSarah Brian Account Type Relation to Patient Date of Phone Billing Address Personal/Family Self [address] [place] [address] * Guarantor: Sarah Sheikh Brian Account Type Relation to Patient Date of Phone Billing Address Personal/Family Self [address] [place] [address] * Guarantor: Sarah Sheikh I Account Type Relation to Patient Date of Phone Billing Address Personal/Family Self [address] [place] [address] Care Teams [employer] Management System Operator Relationship Specialty Start Date End Date Sarah Bradley MD [address] [place] [phone] PCP - General Family Medicine 06/22/18 Aisha Savage Whale TrainerInsurance Account Executive 04/11/24
--- OUTSIDE RECORDS SUMMARY | 2025-08-26 09:53 | XMS_ITS | Encounter Summary ---
Author Organization [employer] Address [address] [facility] [address] [place] [address] Care Team Providers Care Environmental Health Technologist Name Role Phone Sarah Bradley MD Primary Care Provide r Bruce Cruz RN Unavailable [phone] Veronica Preston Unavailable Encounter Details Date Type Department Care Team ([facility] Contact Info) Description 03/22/2023 Orders Only [facility] [address] [place] [address] [phone] Provider, MD Yessi Social History Tobacco Use [...] Upcoming Encounters Date Type Department Care Team ([facility] Contact Info) Description 09/11/2025 1:00 PM EST Office Visit [facility] [address] [place] [address] [phone] Sarah Bradley MD [address] [place] [address] 02/13/2026 9:00 AM EDT Office Visit [facility] [address] [place] [address] Nehemias, Katy, OD [address] [place] [address] documented as of this encounter Procedures Procedure [...] as of this encounter Care Teams Environmental Health Technologist Relationship Specialty Start Date End Date Sarah Bradley MD [address] [place] [address] PCP - General Family Medicine 06/22/18 Bruce Cruz, RN [address] [place] [phone] Registered Nurse Family Medicine 01/15/25 05/22/25 Veronica Preston 01/15/25 06/03/25 Aisha Savage [employer] 04/11/24 documented as of this encounter
[2025-08-26 10:18] LABS: Anion Gap 10 (12-20); Blood Urea Nitrogen 15 mg/dL (9-16); Carbon Dioxide 30 mmol/L (22-29); Chloride 106 mmol/L (96-108); Estimated Glomerular Filt Rate > 60; Potassium 3.3 mmol/L (3.3-5.1); Sodium 143 mmol/L (135-145)
== END 2025-08-26 09:14 | disposition home or self-care (01) ==
LOC: HO.LAB 09:13
PROVIDERS: PCP Internal Medicine; Visit Provider Internal Medicine Nephrology
DX: I10 Essential (primary) hypertension (principal); E87.6 Hypokalemia
CPT/HCPCS: 36415; 80051; 82565; 84520